=== PATIENT | female | born 1970 | race Caucasian/White ===

== ENCOUNTER 2020-02-01 11:00 | Outpatient (RCR) | payer OTHER, SELFPAY ==
[2020-01-27 09:34] VITALS: BP 137/93; PULSE 104; RESP 14
== END 2020-02-13 13:33 | disposition other institution (70) ==
LOC: HO.PT 11:00
PROVIDERS: PCP Internal Medicine; Visit Provider Internal Medicine
DX: M25.511 Pain in right shoulder (principal)
CPT/HCPCS: 97110; 97140; 97162

== ENCOUNTER → 2020-03-20 14:39 | Outpatient (BNVA) | payer OTHER, SELFPAY | PROVIDERS: PCP Hospitalist; Referring Provider Hospitalist; Visit Provider Nurse Practitioner | DX: K21.9 Gastro-esophageal reflux disease without esophagitis (principal); R14.0 Abdominal distension (gaseous); R11.2 Nausea with vomiting, unspecified; K59.00 Constipation, unspecified; R15.9 Full incontinence of feces; Z79.899 Other long term (current) drug therapy; Z87.891 Personal history of nicotine dependence | CPT/HCPCS: 99212 ==

== ENCOUNTER → 2020-04-24 13:07 | Outpatient (BNVA) | payer OTHER, SELFPAY | PROVIDERS: PCP Hospitalist; Visit Provider Nurse Practitioner | DX: Z76.89 Persons encountering health services in other specified circumstances (principal) ==

== ENCOUNTER 2020-07-17 13:44 | Outpatient (REF) | payer OTHER, SELFPAY ==
[2020-07-17 17:07] LABS: TSH reflex Free T4 1.98 uIU/mL (0.32-4.0)
[2020-07-18 08:32] LABS: HBS Num1 0.29 mIU/mL (0-7.99); ~Hepatitis B Surface Antibody NONREACTIVE (Nonreactive)
[2020-07-18 10:11] LABS: Mumps Virus IgG Antibody <9.00 AU/mL; Rubella IgG Antibody <0.90 Index
[2020-07-24 14:27] LABS: Tetanus Antitoxiod Antibody 5.12 IU/mL
== END 2020-07-17 13:45 | disposition home or self-care (01) ==
LOC: HO.HMGCLDS 13:44
PROVIDERS: PCP Internal Medicine; Visit Provider Internal Medicine
DX: E03.9 Hypothyroidism, unspecified (principal); Z28.3 Underimmunization status
CPT/HCPCS: 36415; 84443; 86706; 86735; 86762; 86765; 86774; 86787

== ENCOUNTER → 2020-07-20 13:42 | Outpatient (BNVA) | payer OTHER, SELFPAY | PROVIDERS: PCP Internal Medicine; Visit Provider Internal Medicine Pulmonary Disease | DX: J45.50 Severe persistent asthma, uncomplicated (principal); Z91.09 Other allergy status, other than to drugs and biological substances | CPT/HCPCS: 99212 ==

== ENCOUNTER 2020-08-15 09:20 | Outpatient (REF) | payer OTHER, SELFPAY ==
[2020-08-15 11:26] LABS: MANUAL DIFF FLAG NO
[2020-08-15 11:37] LABS: Basophils Absolute Auto 0.1 X10*3/uL (0.0-0.2); Basophils Percent Auto 0.7 % (0-2); Eosinophils Absolute Auto 0.3 X10*3/uL (0.0-0.4); Hematocrit 33.5 % (37-47); Hemoglobin 9.8 g/dl (12.0-16.0); Imm Gran Abs Auto 0.02 X10*3/uL (0.00-0.03); Imm Gran Pct Auto 0.2 % (0.0-0.4); Lymphocytes Absolute Auto 2.3 X10*3/uL (1.2-4.9); Lymphocytes Percent Auto 26.5 % (20-40); Mean Corpuscular HGB Conc 29.3 g/dl (31.0-35.0); Mean Corpuscular Hemoglobin 20.2 pg (27.0-33.0); Mean Corpuscular Volume 69.2 fL (80-98); Mean Platelet Volume 10.8 fL (9.4-12.3); Monocytes Absolute Auto 0.4 X10*3/uL (0.1-1.2); Neutrophils Absolute Auto 5.7 X10*3/uL (2.0-8.3); Neutrophils Percent Auto 64.6 % (45-73); Platelet Count 390 X10*3/uL (160-400); Red Blood Count 4.84 X10*6/uL (4.20-5.50); Red Cell Distribution Width 17.1 % (11.0-16.0); White Blood Count 8.8 X10*3/uL (4.8-10.8)
== END 2020-08-15 09:21 | disposition home or self-care (01) ==
LOC: HO.HMGCLDS 09:20
PROVIDERS: PCP Internal Medicine; Visit Provider Internal Medicine
DX: D64.9 Anemia, unspecified (principal)
CPT/HCPCS: 36415; 85025

== ENCOUNTER → 2020-08-21 13:01 | Outpatient (BNVA) | payer OTHER, SELFPAY | PROVIDERS: PCP Internal Medicine; Visit Provider Internal Medicine Pulmonary Disease | DX: J45.50 Severe persistent asthma, uncomplicated (principal); Z91.09 Other allergy status, other than to drugs and biological substances | CPT/HCPCS: 99212 ==

== ENCOUNTER 2020-08-27 06:07 | Outpatient (REF) | payer OTHER, SELFPAY ==
--- NOTE | ~2020-08-27 | XR_ITS ---
EXAMINATION: XR SHOULDER, RIGHT CLINICAL INFORMATION: Pain COMPARISON: Previous x-ray December 2019 TECHNIQUE: Three views of the right shoulder. FINDINGS: Bone alignment is normal. No fracture or dislocation is seen. There is mild arthritis at the acromioclavicular joint. The glenohumeral joint is normal. Soft tissues are normal XR/XR shoulder RT min 2V IMPRESSION: Mild arthritis at the acromioclavicular joint.
== END 2020-08-27 06:08 | disposition home or self-care (01) ==
LOC: HO.HOSX 06:07
PROVIDERS: Visit Provider Physician Assistant
DX: M25.511 Pain in right shoulder (principal); M75.41 Impingement syndrome of right shoulder
CPT/HCPCS: 20610; 73030; 99202; J1040

== ENCOUNTER 2020-09-12 11:50 | Outpatient (REF) | payer OTHER, SELFPAY | END 2020-09-12 11:51 | disposition home or self-care (01) | LOC: HO.MDS 11:50 | PROVIDERS: Visit Provider Internal Medicine Medical Oncology | DX: D50.9 Iron deficiency anemia, unspecified (principal) | CPT/HCPCS: 96365; J2916 ==

== ENCOUNTER 2020-09-18 10:15 | Outpatient (REF) | payer OTHER, SELFPAY | END 2020-09-18 10:16 | disposition home or self-care (01) | LOC: HO.MDS 10:15 | PROVIDERS: PCP Internal Medicine; Visit Provider Internal Medicine Medical Oncology | DX: D50.9 Iron deficiency anemia, unspecified (principal) | CPT/HCPCS: 96365; 96372; J2357; J2916 ==

== ENCOUNTER 2020-09-26 12:43 | Outpatient (REF) | payer OTHER, SELFPAY | END 2020-09-26 12:44 | disposition home or self-care (01) | LOC: HO.MDS 12:43 | PROVIDERS: PCP Internal Medicine; Visit Provider Internal Medicine Medical Oncology | DX: D50.9 Iron deficiency anemia, unspecified (principal) | CPT/HCPCS: 96365; J2916 ==

== ENCOUNTER 2020-10-05 10:00 | Outpatient (RCR) | payer OTHER, SELFPAY ==
[2020-09-11 10:19] VITALS: BP 123/76; PULSE 96; O2SAT 96
--- NOTE | 2020-09-11 11:05 | MHC.PT.EP ---
[facility] [place] Office [place] Office [place] Office [address] Martin Jennings [address] [phone] F: [phone] F: [phone] F: [phone] F: [phone] Physical Therapy Plan of Care Date of Evaluation: Date of Surgery: Diagnosis: Pain in unspecified shoulder, impingement syndrome R shoulder Assessment: 50 y/o RHD female referred to PT with R shoulder pain and impingement. She initially injured her shoulder while swimming one year ago. Recently had a cortisone injections which helped. CUrrently pain and difficulty with reaching overhead, grooming, bathing, dressing, and lifting. Of note, PMH significant for petite mal seizure disorder, TIA, anemia, and asthma. S/s consistent with impingement and ? adhesive capsulitis secondary to decreased A/PROM, capsular pattern, decreased RTC/scapular strength, pain, and impaired postural awareness. Recommend PT 2x/week for 5 weeks to address impairments, implement HEP, and optimize functional mobility. Frequency and Duration: The patient will be seen 2x/week for 5 weeks Short Term Goals: 3 weeks 1. I with HEP 2. 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 I with HEP and self management of sx 2. Pt will improve strength by one MMT grade to facilitate reaching into overhead shelf with pain < 3/10 3. Pt will be able to groom with pain < 3/10 Treatment Plan: Modalities to reduce pain, spasms and effusion. Manual therapy to restore motion and function. Therapeutic exercise to improve strength and flexibility. Neuromuscular re-education for posture and balance. Therapeutic activities to return to functional activities of daily living. Electronically signed by: Ann Osman PT Please sign and return to therapist. Thank you for your referral.
--- NOTE | 2020-11-29 10:42 | MHC.PT.DC ---
[facility] [place] Office [place] Office [place] Office [address] Martin Jennings 140 [facility] [phone] F: [phone] F: [phone] F: [phone] F: [phone] Physical Therapy Discharge Report Diagnosis: Pain in unspecified shoulder, impingement syndrome R shoulder Date of Surgery: Date of Evaluation: 09/11/20 Date of Discharge: 11/29/20 Treatments to Date: 6 Cancellations to Date: 2 No Shows to Date: 4 Discharge Status: Visit Non-compliance Discharge Summary: Pt d/c today secondary to non compliance to scheduling policy and no further f/u with appointments. Electronically signed by: Ann Osman PT Please sign and return to therapist. Thank you for your referral.
== END 2020-11-29 10:44 | disposition home or self-care (01) ==
LOC: HO.PT 10:00
PROVIDERS: PCP Internal Medicine; Visit Provider Physician Assistant
DX: M25.519 Pain in unspecified shoulder (principal); M75.41 Impingement syndrome of right shoulder
CPT/HCPCS: 97110; 97162

== ENCOUNTER 2020-10-05 10:47 | Outpatient (REF) | payer OTHER, SELFPAY ==
[2020-10-05 11:12] LABS: MANUAL DIFF FLAG NO
[2020-10-05 11:16] LABS: Basophils Absolute Auto 0.1 X10*3/uL (0.0-0.2); Basophils Percent Auto 0.9 % (0-2); Eosinophils Absolute Auto 0.4 X10*3/uL (0.0-0.4); Eosinophils Percent Auto 4.5 % (0-4); Hematocrit 36.5 % (37-47); Hemoglobin 11.2 g/dl (12.0-16.0); Imm Gran Abs Auto 0.02 X10*3/uL (0.00-0.03); Imm Gran Pct Auto 0.2 % (0.0-0.4); Lymphocytes Absolute Auto 2.1 X10*3/uL (1.2-4.9); Lymphocytes Percent Auto 23.4 % (20-40); Mean Corpuscular HGB Conc 30.7 g/dl (31.0-35.0); Mean Corpuscular Hemoglobin 22.1 pg (27.0-33.0); Mean Corpuscular Volume 72.1 fL (80-98); Monocytes Absolute Auto 0.6 X10*3/uL (0.1-1.2); Monocytes Percent Auto 6.2 % (2-11); Neutrophils Absolute Auto 5.8 X10*3/uL (2.0-8.3); Neutrophils Percent Auto 64.8 % (45-73); Platelet Count 298 X10*3/uL (160-400); Red Blood Count 5.06 X10*6/uL (4.20-5.50); Red Cell Distribution Width 22.1 % (11.0-16.0)
== END 2020-10-05 10:48 | disposition home or self-care (01) ==
LOC: HO.MDS 10:47
PROVIDERS: PCP Internal Medicine; Visit Provider Internal Medicine Medical Oncology
DX: D50.9 Iron deficiency anemia, unspecified (principal)
CPT/HCPCS: 36415; 85025; 96365; J2916

== ENCOUNTER → 2020-10-11 15:50 | Outpatient (BNVA) | payer OTHER, SELFPAY | PROVIDERS: PCP Internal Medicine; Visit Provider Nurse Practitioner ==

== ENCOUNTER 2020-10-12 09:29 | Outpatient (REF) | payer OTHER, SELFPAY | END 2020-10-12 09:30 | disposition home or self-care (01) | LOC: HO.MDS 09:29 | PROVIDERS: PCP Internal Medicine; Visit Provider Internal Medicine Medical Oncology | DX: D50.9 Iron deficiency anemia, unspecified (principal) | CPT/HCPCS: J2916 ==

== ENCOUNTER 2020-10-19 09:19 | Outpatient (REF) | payer OTHER, SELFPAY ==
[2020-10-19 10:52] LABS: MANUAL DIFF FLAG NO
[2020-10-19 10:55] LABS: Basophils Absolute Auto 0.1 X10*3/uL (0.0-0.2); Basophils Percent Auto 0.8 % (0-2); Eosinophils Absolute Auto 0.4 X10*3/uL (0.0-0.4); Hematocrit 38.5 % (37-47); Hemoglobin 12.1 g/dl (12.0-16.0); Imm Gran Abs Auto 0.03 X10*3/uL (0.00-0.03); Imm Gran Pct Auto 0.3 % (0.0-0.4); Lymphocytes Absolute Auto 2.4 X10*3/uL (1.2-4.9); Lymphocytes Percent Auto 26.5 % (20-40); Mean Corpuscular HGB Conc 31.4 g/dl (31.0-35.0); Mean Corpuscular Hemoglobin 23.4 pg (27.0-33.0); Mean Corpuscular Volume 74.3 fL (80-98); Mean Platelet Volume 10.1 fL (9.4-12.3); Monocytes Absolute Auto 0.5 X10*3/uL (0.1-1.2); Monocytes Percent Auto 5.5 % (2-11); Neutrophils Absolute Auto 5.6 X10*3/uL (2.0-8.3); Neutrophils Percent Auto 62.9 % (45-73); Platelet Count 278 X10*3/uL (160-400); Red Blood Count 5.18 X10*6/uL (4.20-5.50); Red Cell Distribution Width 23.2 % (11.0-16.0); White Blood Count 8.9 X10*3/uL (4.8-10.8)
== END 2020-10-19 09:20 | disposition home or self-care (01) ==
LOC: HO.MDS 09:19
PROVIDERS: PCP Internal Medicine; Visit Provider Internal Medicine Medical Oncology
DX: J45.50 Severe persistent asthma, uncomplicated (principal)
CPT/HCPCS: 36415; 85025; 96365; 96372; J2357; J2916

== ENCOUNTER → 2020-10-24 13:05 | Outpatient (BNVA) | payer OTHER, SELFPAY | PROVIDERS: PCP Internal Medicine; Visit Provider Internal Medicine Pulmonary Disease ==

== ENCOUNTER 2020-11-14 08:20 | Day surgery (SDC) | payer OTHER, SELFPAY ==
[2020-11-08 10:51] VITALS: BMI 38.2
--- NOTE | 2020-11-13 11:39 | P.CONAN_ITS ---
Documented by User: Serena Miller 11/13/20 11:40 HPI - Anesthesia Eval Consult details Narrative: 50yo F for Upper Endoscopy and Colonoscopy *Multiple Med Allergies* PMFSH Active Problems Active Problems: All Active Problems (Updated 11/08/20 @ 10:47 by Nisha Romero) GERD (gastroesophageal reflux disease) (Acute) Abdominal bloating (Acute) Nausea and vomiting (Acute) Constipation (Acute) Postmenopausal bleeding (Acute) Stool incontinence (Acute) Hypothyroidism (Acute) Immunizations incomplete (Acute) Severe persistent allergic asthma (Acute) Environmental allergies (Acute) Shoulder pain, right (Acute) Sciatica, left side (Acute) Anemia (Acute) Shoulder pain (Acute) Impingement syndrome of right shoulder (Acute) Iron deficiency anemia (Acute) Colon cancer screening (Acute) Past Medical History Medical History (Updated 11/08/20 @ 10:47 by Nisha Romero) Anemia Aneurysm Asthma GERD (gastroesophageal reflux disease) Thyroid disease Family History Family History (Updated 09/04/20 @ 14:16 by Shanon Ghosh) Father Diabetes Arthritis Diverticulitis Leukemia Lung cancer Mother Arthritis Colon polyps Anemia Brother Crohn's disease Testicular cancer Brother Cancer Paternal Grandfather Leukemia Surgical History Surgical History (Updated 09/04/20 @ 15:23 by Jeronimo Bernal MD) H/O brain surgery History of colonoscopy Social History Social History (Updated 09/04/20 @ 14:14 by Shanon Ghosh) Alcohol intake: current Alcohol intake frequency: holidays/special occasions only Alcohol type: wine Patient Tobacco Use Status: Former Tobacco user Use of substances other than those prescribed or required for medical reasons: No Advance Directives: No Advance Directives Information Provided: Yes Advance Directives Date on File: 01/27/20 Recently lost weight without trying: No Patient : No 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al status: disabled 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: Right Handed Meds Allergies Allergy/AdvReac Type Severity Reaction Status Date / Time NSAIDS (Non-Steroidal Allergy Severe THROAT Verified 11/08/20 10:42 Anti-Inflamma SWELLING [NSAIDS (NON-STEROIDAL ANTI-INFLAMMA] niacin Allergy Intermediate skin Verified 11/08/20 10:42 [Niaspan Extended-Release] blisters tramadol Allergy Intermediate seizures Verified 11/08/20 10:42 barley [BARLEY] Allergy Unknown UNKNOWN Verified 10/24/20 13:06 fluticasone [Advair Diskus] Allergy Unknown unknown Verified 10/24/20 13:06 ibuprofen Allergy Unknown Unknown Verified 10/24/20 13:06 naratriptan Allergy Unknown unknown Verified 10/24/20 13:06 Penicillins [PENICILLINS] Allergy Unknown UNKNWON Verified 10/24/20 13:06 sumatriptan Allergy Unknown unknown Verified 10/24/20 13:06 trazodone [TRAZODONE] Allergy Unknown UNKNOWN Verified 10/24/20 13:06 Home Medications Medication Instructions Recorded Confirmed Last Taken Type simethicone 180 mg capsule 180 mg PO BID PRN 03/20/20 11/08/20 Unknown History fluticasone propionate 50 1 spray INTRANASAL DAILY 07/17/20 11/08/20 Unknown History mcg/actuation nasal spray,suspension montelukast 10 mg tablet 10 mg PO DAILY 07/17/20 11/08/20 Unknown History Exam Exam Date and Time: November 13, 2020 1139 Height,Weight and Vital Signs: Height 5 ft 5 in Weight 104.326 kg Pertinent Lab Results Pertinent Lab Results: Laboratory Tests 09/04/20 10/19/20 14:56 10:47 WBC 8.9 Hgb 12.1 Hct 38.5 Plt Count 278 Sodium 139 Potassium 4.1 Chloride 107 Carbon Dioxide 23 BUN 11 Creatinine 0.69 Assessment and Plan Assessment Anesthesia Assessment: Chart Reviewed Documented by User: Erin Dubon 11/14/20 09:09 [facility] [place] [place] Past Medical History Medical History (Updated 11/08/20 @ 10:47 by Nisha Romero) Anemia Aneurysm Asthma GERD (gastroesophageal reflux disease) Thyroid disease Family History Family History (Updated 09/04/20 @ 14:16 by Shanon Ghosh) Father Diabetes Arthritis Diverticulitis Leukemia Lung cancer Mother Arthritis Colon polyps Anemia Brother Crohn's disease Testicular cancer Brother Cancer Paternal Grandfather Leukemia Surgical History Surgical History (Updated 09/04/20 @ 15:23 by Jeronimo Bernal MD) H/O brain surgery History of colonoscopy Social History Social History (Updated 09/04/20 @ 14:14 by Shanon Ghosh) Alcohol intake: current Alcohol intake frequency: holidays/special occasions only Alcohol type: wine Patient Tobacco Use Status: Former Tobacco user Use of substances other than those prescribed or required for medical reasons: No Advance Directives: No Advance Directives Information Provided: Yes Advance Directives Date on File: 01/27/20 Recently lost weight without trying: No Patient : No 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al status: disabled 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: Right Handed Meds Allergies Allergy/AdvReac Type Severity Reaction Status Date / Time NSAIDS (Non-Steroidal Allergy Severe THROAT Verified 11/08/20 10:42 Anti-Inflamma SWELLING [NSAIDS (NON-STEROIDAL ANTI-INFLAMMA] niacin Allergy Intermediate skin Verified 11/08/20 10:42 [Niaspan Extended-Release] blisters tramadol Allergy Intermediate seizures Verified 11/08/20 10:42 barley [BARLEY] Allergy Unknown UNKNOWN Verified 10/24/20 13:06 fluticasone [Advair Diskus] Allergy Unknown unknown Verified 10/24/20 13:06 ibuprofen Allergy Unknown Unknown Verified 10/24/20 13:06 naratriptan Allergy Unknown unknown Verified 10/24/20 13:06 Penicillins [PENICILLINS] Allergy Unknown UNKNWON Verified 10/24/20 13:06 sumatriptan Allergy Unknown unknown Verified 10/24/20 13:06 trazodone [TRAZODONE] Allergy Unknown UNKNOWN Verified 10/24/20 13:06 Home Medications Medication Instructions Recorded Confirmed Last Taken Type simethicone 180 mg capsule 180 mg PO BID PRN 03/20/20 11/08/20 Unknown History fluticasone propionate 50 1 spray INTRANASAL DAILY 07/17/20 11/08/20 Unknown History mcg/actuation nasal spray,suspension montelukast 10 mg tablet 10 mg PO DAILY 07/17/20 11/08/20 Unknown History Exam Airway Mallampati Class: II TM Dist: >3cm Neck ROM: Full Denture: Upper and Lower Heart: rrr Lungs: cta Assessment and Plan Assessment Anesthesia Assessment: Anesthesia Plan Discussed and Chart Reviewed Final Anesthetic Review NPO: Yes ASA Class: III Final Preanesthetic Review: No Changes in Pt Med Stat and Consent Obtained/Reviewed Patient Risk: Intermediate Procedure Risk: Intermediate Anesthetic Plan Anesthetic Plan: MAC: Disposition: Standard PACU
[2020-11-14 08:45] VITALS: BP 126/85; PULSE 73; RESP 17; TEMP 36.2; O2SAT 96; BMI 38.2
[2020-11-14 09:00] LABS: UPreg QC Valid YES; Urine Pregnancy NEGATIVE (NEGATIVE)
[2020-11-14] MEDS: Lactated Ringers 1,000 ML 100 ML IVCONT (09:02)
--- NOTE | 2020-11-14 09:07 | MHC.SHP ---
Pre-Procedural Eval Section A Date of Service: 11/14/20 Section B Chief Complaint: Screening, GERD Details of Present Illness: iron def anemia Present Medications: see Short Stay Collaborative assessment Medical History: Significant History (Anemia Aneurysm Asthma GERD (gastroesophageal reflux disease) Thyroid disease) History of Previous Operations: Relevant previous surgery/procedure and date(s) (H/O brain surgery History of colonoscopy) Allergies: Allergies Allergy/AdvReac Type Severity Reaction Status Date / Time NSAIDS (Non-Steroidal Allergy Severe THROAT Verified 11/08/20 10:42 Anti-Inflamma SWELLING [NSAIDS (NON-STEROIDAL ANTI-INFLAMMA] niacin Allergy Intermediate skin Verified 11/08/20 10:42 [Niaspan Extended-Release] blisters tramadol Allergy Intermediate seizures Verified 11/08/20 10:42 barley [BARLEY] Allergy Unknown UNKNOWN Verified 10/24/20 13:06 fluticasone [Advair Diskus] Allergy Unknown unknown Verified 10/24/20 13:06 ibuprofen Allergy Unknown Unknown Verified 10/24/20 13:06 naratriptan Allergy Unknown unknown Verified 10/24/20 13:06 Penicillins [PENICILLINS] Allergy Unknown UNKNWON Verified 10/24/20 13:06 sumatriptan Allergy Unknown unknown Verified 10/24/20 13:06 trazodone [TRAZODONE] Allergy Unknown UNKNOWN Verified 10/24/20 13:06 Review of Systems Sugical H&P ROS: Negative: Constitution, Cardiovascular, Respiratory, Neurological, Psychiatric, Hem-Onc, Allergic/Immunologic, Gastrointestinal, Genitourinary, Musculoskeletal, Integumentary, Endocrine and Eyes/Ears/Nose/Throat Exam Surgical H&P Exam: Normal: HEENT, Normal: Heart, Normal: Lungs, Normal: Extremities, Normal: Abdomen, Normal: Skin and Normal: Neurological Plan Diagnosis/Plan: Unchanged I have reviewed the history and physical and performed a pertinent physical examination on my patient. No changes have occurred unless specified.
--- NOTE | 2020-11-14 09:23 | P.BOP_ITS ---
Brief Operative Note Date of Service: 11/14/20 Pre-op diagnosis: anemia, GERd, Post-op diagnosis: same Procedure: see op note Surgeon: Diamante Bass MD Anesthesia: MAC Was an [employer] Production Technician used for this Procedure?: No Estimated blood loss (mL): 0 Condition: stable Disposition: PACU
--- NOTE | 2020-11-14 09:24 | P.OP_ITS ---
Operative Note Operative Note Date of Service: 11/14/20 Narrative: Operative Information Procedure Description: EGD, Colonoscopy FLEXIBLE TRANSORAL UPPER GASTROINTESTINAL ENDOSCOPY AND COLONOSCOPY PROCEDURE NOTE UPPER ENDOSCOPY Consent: Indications for the procedure and potential complications of bleeding, perforation, reaction to medications and missed diagnosis were discussed with the patient and informed consent was obtained. Instrument: Olympus GIF H 190 J mid size upper endoscope Monitoring: Vital signs and clinical assessment, continuous EKG monitoring, Pulse oximetry, Carbon Dioxide monitoring and blood pressure monitoring were done throughout the procedure. Procedure: The patient was placed in the left lateral decubitis position and pre-procedure medications were administered and a bite block was placed. The endoscope was inserted into the mouth and advanced under direct vision to the third part of duodenum. A careful inspection was made as the upper endoscope was withdrawn including a retroflexed examination of the proximal stomach; Findings and interventions are described below. Findings: Larynx:normal Esophagus: GE junction at 40 cm, diaphragm hiatus at 40 cm, normal mucosa --GEJ bx and random esophagus bx taken Stomach: Patchy erythema and atrophy. Biopsies were obtained. Grade 2 flap valve on retroflexed examination of the cardia. Duodenum: Normal bulb and descending duodenum, bx taken Intervention: Biopsies as noted above COLONOSCOPY Instrument: Olympus variable stiffness pediatric scope 190L Colonoscopy Monitoring: Vital signs and clinical assessment, continuous EKG monitoring, Pulse oximetry, Carbon Dioxide monitoring and blood pressure monitoring were done throughout the procedure. Colon withdrawal time was 15 minutes. Procedure: The patient was placed in the left lateral decubitis position and pre-procedure medications were administered. After a digital rectal examination of the ano-rectum, the video colonoscope was inserted into the rectum and advanced through the colon to the cecum/TI. The colonoscope was slowly withdrawn in a retrograde panoramic fashion and the colon mucosa was carefully examined including a retroflexed view of the rectum. Findings and interventions are described below. Procedure Difficulty:moderate, pressure applied to reach cecum Findings: Terminal Ileum-normal, bx taken bx taken from right and left colon in separate jars Cecum: slightly nodular mucosa, small sessile polyp 4-5 mm removed with forceps Ascending Colon: nodular mucosa Transverse Colon -normal Descending Colon:normal Sigmoid Colon: mild to moderate diverticulosis Rectum: Retroflexion with large internal hemorrhoids, grade I, with skin tags noted Anorectum - skin tags noted Colon preparation: [place] Bowel Preparation Scale Right colon; 1 Transverse colon: 1 Left colon; 3 (0 = Unprepared colon segment with mucosa not seen due to solid stool that cannot be cleared. 1 = Portion of mucosa of the colon segment seen, but other areas of the colon segment not well seen due to staining, residual stool and/or opaque liquid. 2 = Minor amount of residual staining, small fragments of stool and/or opaque liquid, but mucosa of colon segment seen well. 3 = Entire mucosa of colon segment seen well with no residual staining, small fragments of stool or opaque liquid) Impression and Post Procedure Diagnosis: Endoscopy Findings: gastritis Colonoscopy Findings: polyp internal hemorrhoids diverticular disease Plan: Await Pathology results Repeat Colonoscopy in 1-2 years due to prep or earlier if clinically indicated High fiber diet leaflet avoid straining at stool, epsom salts and sitz bath, anusol supps or cream suspect her anemia is due to hemorrhoids, if bx neg then refer Dr Gilman for hemorrhoidectomy Above findings were reviewed with the patient and relevant handouts were provided if indicated.
[2020-11-14 10:00] VITALS: BP 119/74; PULSE 74; RESP 16; TEMP 36.1; O2SAT 98
[2020-11-14 10:15] VITALS: BP 136/87; PULSE 78; RESP 18; O2SAT 99
[2020-11-14 10:22] VITALS: TEMP 36.6
== END 2020-11-14 10:49 | disposition home or self-care (01) ==
PROVIDERS: Nurse Practitioner; PCP Internal Medicine; Visit Provider Internal Medicine Gastroenterology
PROC: (CPT 45380; principal; 2020-11-14 11:00)
DX: Z12.11 Encounter for screening for malignant neoplasm of colon (principal); D12.0 Benign neoplasm of cecum; K63.89 Other specified diseases of intestine; K57.30 Diverticulosis of large intestine without perforation or abscess without bleeding; K64.0 First degree hemorrhoids; K64.4 Residual hemorrhoidal skin tags; K21.9 Gastro-esophageal reflux disease without esophagitis; K29.50 Unspecified chronic gastritis without bleeding; K44.9 Diaphragmatic hernia without obstruction or gangrene; J45.909 Unspecified asthma, uncomplicated; D64.9 Anemia, unspecified; Z86.79 Personal history of other diseases of the circulatory system; Z79.51 Long term (current) use of inhaled steroids; Z79.899 Other long term (current) drug therapy; Z88.0 Allergy status to penicillin; Z88.8 Allergy status to other drugs, medicaments and biological substances; Z87.891 Personal history of nicotine dependence
CPT/HCPCS: 45380; 43239; 81025; 88305; 88342

== ENCOUNTER 2020-11-16 09:15 | Outpatient (REF) | payer OTHER, SELFPAY | END 2020-11-16 09:16 | disposition home or self-care (01) | LOC: HO.MDS 09:15 | PROVIDERS: PCP Internal Medicine; Visit Provider Internal Medicine Medical Oncology | DX: J45.50 Severe persistent asthma, uncomplicated (principal) | CPT/HCPCS: 96372; J2357 ==

== ENCOUNTER → 2020-12-10 10:21 | Outpatient (BNVA) | payer OTHER, SELFPAY | PROVIDERS: PCP Internal Medicine; Visit Provider Nurse Practitioner ==

== ENCOUNTER 2020-12-14 08:29 | Outpatient (REF) | payer OTHER, SELFPAY | END 2020-12-14 08:30 | disposition home or self-care (01) | LOC: HO.MDS 08:29 | PROVIDERS: PCP Internal Medicine; Visit Provider Internal Medicine Medical Oncology | DX: J45.50 Severe persistent asthma, uncomplicated (principal) | CPT/HCPCS: 96372; J2357 ==

== ENCOUNTER 2021-01-11 08:25 | Outpatient (REF) | payer OTHER, SELFPAY | END 2021-01-11 08:26 | disposition home or self-care (01) | LOC: HO.MDS 08:25 | PROVIDERS: PCP Internal Medicine; Visit Provider Internal Medicine Medical Oncology | DX: J45.50 Severe persistent asthma, uncomplicated (principal) | CPT/HCPCS: 96372; J2357 ==

== ENCOUNTER → 2021-01-22 09:47 | Outpatient (BNVA) | payer OTHER, SELFPAY | PROVIDERS: PCP Internal Medicine; Visit Provider Nurse Practitioner ==

== ENCOUNTER 2021-02-08 08:12 | Outpatient (REF) | payer OTHER, SELFPAY | END 2021-02-08 08:13 | disposition home or self-care (01) | LOC: HO.MDS 08:12 | PROVIDERS: PCP Internal Medicine; Visit Provider Internal Medicine Pulmonary Disease | DX: J45.50 Severe persistent asthma, uncomplicated (principal) | CPT/HCPCS: 96372; J2357 ==

== ENCOUNTER 2021-03-08 09:14 | Outpatient (REF) | payer OTHER, SELFPAY | END 2021-03-08 09:15 | disposition home or self-care (01) | LOC: HO.MDS 09:14 | PROVIDERS: PCP Internal Medicine; Visit Provider Internal Medicine Pulmonary Disease | DX: J45.50 Severe persistent asthma, uncomplicated (principal) | CPT/HCPCS: 96372; 99212; J2357 ==

== ENCOUNTER 2021-03-12 15:23 | Emergency (ER) | payer OTHER, SELFPAY ==
--- NOTE | ~2021-03-12 | CT_ITS ---
EXAMINATION: CT HEAD WITHOUT CONTRAST CLINICAL INFORMATION: Dizziness. COMPARISON: CT head 11/25/2017, 10/05/2017 TECHNIQUE: Contiguous axial imaging was performed from the skull base to vertex without intravenous administration of contrast. Coronal and sagittal reformatted images are performed at CT scanner This CT examination was performed using dose optimization techniques as appropriate, variously including the following: *Automated exposure control *Adjustment of mA and/or kV according to patient size (this includes techniques or standardized protocols for targeted exams where dose is matched to indication/reason for exam; i.e. extremities or head) *Use of iterative reconstruction technique DLP: 625 mGy-cm FINDINGS:. Coil mass in the region of the left internal carotid artery terminus at the skull base causes streak artifact There is no evidence of acute intracranial hemorrhage or territorial infarction. No abnormal mass effect or midline shift is seen. Clark to white matter differentiation is well preserved. No extra-axial fluid collections are identified. The ventricles are normal in size. There is no abnormal attenuation within the brain parenchyma. The osseous structures and soft tissues are normal. The mastoid air cells and visualized portions of the paranasal sinuses are well aerated. CT/CT head/brain wo con IMPRESSION: No acute intracranial pathology.
--- NOTE | 2021-03-12 15:36 | ECG_ITS ---
Test Reason : SOB Blood Pressure : / mmHG Vent. Rate : 078 BPM Atrial Rate : 078 BPM P-R Int : 174 ms QRS Dur : 084 ms QT Int : 358 ms P-R-T Axes : 049 007 027 degrees QTc Int : 408 ms Normal sinus rhythm Nonspecific ST abnormality Abnormal ECG When compared with ECG of 25-NOV-2017 12:22, No significant change was found Referred By: Derrick Marte Electronically Signed By:JOANN BOWER MD
--- NOTE | 2021-03-12 15:38 | ED.GENADULT ---
HPI - General Adult General Chief complaint: Dizziness Stated complaint: LIGHTHEADED,DIZZY Time Seen by Provider: 03/12/21 15:29 Source: patient Mode of arrival: EMS Limitations: no limitations History of Present Illness HPI narrative: This is a very pleasant 51 years old the female presented to the emergency department via ambulance having the chief complaint of dizziness since this morning, tingling in the fingers in left side left shoulder pain. Symptoms started around 07:00. Denies any chest pain, shortness of breath, fever. She has history of migraines complicated with the hemiplegia and that she has a history of a brain aneurysm coiled at the [facility] Onset (ago): hour(s) (7) Location: head Radiation: other (left shoulder) Severity: mild Quality: aching Relieving factors: none Exacerbating factors: none Associated symptoms: denies other symptoms Related Data Previous Rx's Medication Instructions Recorded diphenhydramine HCl 25 mg capsule 25 mg PO TID PRN 30 Days #90 cap 09/25/20 (Banophen) fluticasone propionate 50 1 spray INTRANASAL DAILY 30 Days 11/27/20 mcg/actuation nasal #16 g spray,suspension (Flonase Allergy Relief) linaclotide 72 mcg capsule 72 mcg PO QAM 30 Days #30 cap 12/10/20 (Linzess) simethicone 180 mg capsule (Gas 180 mg PO QIDACHS 30 Days #120 cap 12/10/20 Relief (simethicone)) montelukast 10 mg tablet 10 mg PO DAILY #30 tab 12/19/20 loratadine 10 mg tablet 10 mg PO DAILY #30 tab 01/07/21 famotidine 40 mg tablet (Pepcid) 40 mg PO BEDTIME 30 Days #30 tab 01/22/21 levothyroxine 150 mcg tablet 150 mcg PO DAILY 90 Days #90 tab 02/19/21 ProAir HFA 90 mcg/actuation 2 puff INHALATION Q4H #8.5 g NS 02/21/21 aerosol inhaler (albuterol sulfate) xcadnazltt-dbycrnylngqyk-igfvzmjk 1 cap PO Q8H PRN #10 cap 03/12/21 50 mg-300 mg-40 mg capsule (Fioricet) dexlansoprazole 60 mg 60 mg PO BEDTIME 30 Days #30 cap 03/12/21 capsule,biphase delayed release (Dexilant) Allergies Allergy/AdvReac Type Severity Reaction Status Date / Time NSAIDS (Non-Steroidal Allergy Severe THROAT Verified 03/08/21 09:49 Anti-Inflamma SWELLING [NSAIDS (NON-STEROIDAL ANTI-INFLAMMA] niacin Allergy Intermediate skin Verified 03/08/21 09:49 [Niaspan Extended-Release] blisters tramadol Allergy Intermediate seizures Verified 03/08/21 09:49 barley [BARLEY] Allergy Unknown UNKNOWN Verified 03/08/21 09:49 fluticasone [Advair Diskus] Allergy Unknown unknown Verified 03/08/21 09:49 ibuprofen Allergy Unknown Unknown Verified 03/08/21 09:49 naratriptan Allergy Unknown unknown Verified 03/08/21 09:49 Penicillins [PENICILLINS] Allergy Unknown UNKNWON Verified 03/08/21 09:49 sumatriptan Allergy Unknown unknown Verified 03/08/21 09:49 trazodone [TRAZODONE] Allergy Unknown UNKNOWN Verified 03/08/21 09:49 Review of Systems Review of Systems: Yes all other systems are reviewed and are negative ENT: Reports dizziness and Denies odynophagia Cardiovascular: Cardiovascular: Denies chest pain, Denies chest pain at rest and Denies chest pain with activity Respiratory: Respiratory: Reports no additional respiratory complaints Gastrointestinal: Gastrointestinal: Denies odynophagia, Denies vomiting and Denies hematemesis Neurologic: Reports dizziness PMFSH Past Medical History Medical History Anemia Aneurysm Asthma GERD (gastroesophageal reflux disease) Thyroid disease Surgical History H/O brain surgery History of colonoscopy Family History Family History Father Diabetes Arthritis Diverticulitis Leukemia Lung cancer Mother Arthritis Colon polyps Anemia Brother Crohn's disease Testicular cancer Brother Cancer Paternal Grandfather Leukemia Social History Social History Household Members: Significant Other Alcohol intake: current Alcohol intake frequency: holidays/special occasions only Alcohol type: wine Patient Tobacco Use Status: Former Tobacco user Advance Directives: No Advance Directives Information Provided: No Advance Directives Date on File: 10/02/20 Patient : No 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al status: disabled 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 Physical Exam Vital Signs: Vital Signs: Last Vital Signs Temp 98 F 03/12/21 16:47 Pulse 86 03/12/21 16:47 Resp 16 03/12/21 16:47 BP 133/77 03/12/21 16:47 Pulse Ox 98 03/12/21 16:47 Body Mass Index 40.4 Const: General: cooperative, comfortable, no acute distress, well developed, alert and awake Nutritional Appearance: well nourished Orientation/consciousness: oriented to person, oriented to place, oriented to time and patient oriented x3 HENMT: Head: Yes normal to inspection Ears: TM's normal bilaterally Mouth: Normal oral and palatal mucosa present Throat: Yes posterior oropharynx normal Neck: Neck: Yes normal visual inspection, Yes no lymphadenopathy, Yes no meningeal signs and Yes trachea midline Chest: Chest palpation & inspection: normal inspection of the chest Resp: Effort & Inspection: normal respiratory effort Auscultation: clear to auscultation bilaterally Cardio: Jugular venous distension: no JVD Rate: regular rate Rhythm: regular rhythm GI: Inspection: Yes normal to inspection Palpation (GI): Soft to palpation, not firm, nontender, no guarding and not rigid Skin: General skin exam: no rashes or lesions noted, elasticity normal and turgor normal Neuro: General: oriented to person, oriented to place, oriented to time, patient oriented x3, gait normal and no meningeal signs Cranial nerves: Yes CN's II-XII intact bilaterally, Yes Facial sensation intact/muscles of mastication intact and Yes Bilaterally intact EOM present Gait exam (Neuro): Normal gait present and Other gait observations present (ambulated to the bathroom in the ED) Motor exam (neuro): Pronator motor function not present Coordination: [id number]-mz-[id number] test normal Course Reevaluation(s) Reevaluation #1: feeling much better asyntomatic at this time,head ct and labs wnl OK to d/c home Medical Decision Making Lab Data Result diagrams: 03/12/21 16:02 03/12/21 16:43 Labs: Lab Results 03/12/21 03/12/21 03/12/21 Range/Units 16:02 16:02 16:43 WBC 10.5 (4.8-10.8) X10*3/uL RBC 5.02 (4.20-5.50) X10*6/uL Hgb 13.6 (12.0-16.0) g/dl Hct 41.4 (37.0-47.0) % MCV 82.5 (80.0-98.0) fL MCH 27.1 (27.0-33.0) pg MCHC 32.9 (31.0-35.0) g/dl RDW 14.0 (11.0-16.0) % Plt Count 317 (160-400) X10*3/uL MPV 10.3 (9.4-12.3) fL Immature Gran % (Auto) 0.3 (0.0-0.4) % Neut % (Auto) 68.7 (45-73) % Lymph % (Auto) 21.1 (20-40) % [place] % (Auto) 6.3 (2-11) % Eos % (Auto) 2.9 (0-4) % Baso % (Auto) 0.7 (0-2) % Lymph # (Auto) 2.2 (1.2-4.9) X10*3/uL [place] # (Auto) 0.7 (0.1-1.2) X10*3/uL Eos # (Auto) 0.3 (0.0-0.4) X10*3/uL Baso # (Auto) 0.1 (0.0-0.2) X10*3/uL Abs Immat Gran (auto) 0.03 (0.00-0.03) X10*3/uL Absolute Neuts (auto) 7.2 (2.0-8.3) x10*3/uL Absolute Nucleated RBC 0.000 (0.0-0.012) X10*3/uL Nucleated RBC % (auto) 0.0 (0.0-0.2) /100WBC Sodium 140 (135-145) mmol/L Potassium 4.1 (3.3-5.1) mmol/L Chloride 108 (96-108) mmol/L Carbon Dioxide 24 (22-29) mmol/L Anion Gap 12 (12-20) BUN 9 (9-16) mg/dL Creatinine 0.73 (0.5-1.4) mg/dL Estim Creat Clear Calc 113.9 Estimated GFR > 60 Random Glucose 94 (60-115) mg/dL Calcium 9.5 (8.4-10.2) mg/dL Total Bilirubin 0.2 (0.0-1.0) mg/dL AST 17 (5-31) U/L ALT 19 (0-31) U/L Alkaline Phosphatase 153 H (39-117) U/L Troponin I High Sens < 3.5 (<3.5-17.0) ng/L Total Protein 6.6 (6.5-8.0) g/dL Albumin 4.2 (3.5-5.0) g/dL Imaging Data CT scan - head: Radiologist's impression: ing: *Automated exposure control *Adjustment of mA and/or kV according to patient size (this includes techniques or standardized protocols for targeted exams where dose is matched to indication/reason for exam; i.e. extremities or head) *Use of iterative reconstruction technique DLP: 625 mGy-cm FINDINGS:. Coil mass in the region of the left internal carotid artery terminus at the skull base causes streak artifact There is no evidence of acute intracranial hemorrhage or territorial infarction. No abnormal mass effect or midline shift is seen. Clark to white matter differentiation is well preserved. No extra-axial fluid collections are identified. The ventricles are normal in size. There is no abnormal attenuation within the brain parenchyma. The osseous structures and soft tissues are normal. The mastoid air cells and visualized portions of the paranasal sinuses are well aerated. ? CT/CT head/brain wo con IMPRESSION: No acute intracranial pathology. Dictated By: RAFAEL NORTH MD Signed By: <Electronically signed by RAFAEL NORTH MD in OV> 03/12/21 3331 ECG Data Attestation: I personally reviewed and interpreted this ECG as follows: Prior ECG tracings: available for review Pacemaker model: NSR 78 no ischemic changes Discharge Plan Discharge Clinical Impression: Dizziness, Head ache Patient Disposition: Home, Self-Care Instructions: Dizziness (ED), General Headache (ED) Additional Instructions: follow up with Primary Care physician ,return if worse Prescriptions: New luqykadxxp-satjxqufssvvb-ucqp [Fioricet] 50-300-40 mg capsule 1 cap PO Q8H PRN (Reason: headache) Qty: 10 RF: 0 No Action diphenhydramine HCl [Banophen] 25 mg capsule 25 mg PO TID PRN (Reason: itching) 30 Days Qty: 90 RF: 1 fluticasone propionate [Flonase Allergy Relief] 50 mcg/actuation spray,suspension 1 spray intranasal DAILY 30 Days Qty: 16 RF: 5 montelukast 10 mg tablet 10 mg PO DAILY Qty: 30 RF: 3 loratadine 10 mg tablet 10 mg PO DAILY Qty: 30 RF: 3 levothyroxine 150 mcg tablet 150 mcg PO DAILY 90 Days Qty: 90 RF: 0 albuterol sulfate [ProAir HFA] 90 mcg/actuation HFA aerosol inhaler 2 puff inhalation Q4H Qty: 8.5 RF: 0 Dexilant 60 mg capsule,biphase delayed releas 60 mg PO BEDTIME 30 Days Qty: 30 RF: 3 simethicone [Gas Relief (simethicone)] 180 mg capsule 180 mg PO QIDACHS 30 Days Qty: 120 RF: 6 Linzess 72 mcg capsule 72 mcg PO QAM 30 Days Qty: 30 RF: 6 famotidine [Pepcid] 40 mg tablet 40 mg PO BEDTIME 30 Days Qty: 30 RF: 6 Referrals: Thee Tay MD [Primary Care Provider] - 2 days
[2021-03-12 15:42] VITALS: BP 136/70; PULSE 88; O2SAT 99; BMI 40.4
[2021-03-12 15:54] VITALS: BP 137/77; PULSE 86; RESP 16; TEMP 36.6; O2SAT 98
[2021-03-12 16:08] LABS: MANUAL DIFF FLAG NO
[2021-03-12 16:13] LABS: Basophils Absolute Auto 0.1 X10*3/uL (0.0-0.2); Basophils Percent Auto 0.7 % (0-2); Eosinophils Absolute Auto 0.3 X10*3/uL (0.0-0.4); Eosinophils Percent Auto 2.9 % (0-4); Hematocrit 41.4 % (37.0-47.0); Hemoglobin 13.6 g/dl (12.0-16.0); Imm Gran Abs Auto 0.03 X10*3/uL (0.00-0.03); Imm Gran Pct Auto 0.3 % (0.0-0.4); Lymphocytes Absolute Auto 2.2 X10*3/uL (1.2-4.9); Lymphocytes Percent Auto 21.1 % (20-40); Mean Corpuscular HGB Conc 32.9 g/dl (31.0-35.0); Mean Corpuscular Hemoglobin 27.1 pg (27.0-33.0); Mean Corpuscular Volume 82.5 fL (80.0-98.0); Mean Platelet Volume 10.3 fL (9.4-12.3); Monocytes Absolute Auto 0.7 X10*3/uL (0.1-1.2); Monocytes Percent Auto 6.3 % (2-11); Neutrophils Absolute Auto 7.2 x10*3/uL (2.0-8.3); Neutrophils Percent Auto 68.7 % (45-73); Platelet Count 317 X10*3/uL (160-400); Red Blood Count 5.02 X10*6/uL (4.20-5.50); White Blood Count 10.5 X10*3/uL (4.8-10.8)
[2021-03-12 16:31] LABS: Troponin-I High Sensitivity < 3.5 ng/L (<3.5-17.0)
[2021-03-12 16:47] VITALS: BP 133/77; PULSE 86; RESP 16; TEMP 36.6; O2SAT 98
[2021-03-12 17:07] LABS: Alanine Aminotransferase 19 U/L (0-31); Albumin Level 4.2 g/dL (3.5-5.0); Alkaline Phosphatase 153 U/L (39-117); Anion Gap 12 (12-20); Aspartate Amino Transferase 17 U/L (5-31); Bilirubin Total 0.2 mg/dL (0.0-1.0); Blood Urea Nitrogen 9 mg/dL (9-16); Calcium 9.5 mg/dL (8.4-10.2); Carbon Dioxide 24 mmol/L (22-29); Chloride 108 mmol/L (96-108); Creatinine Clr Calc Pharmacy 113.9; Estimated Glomerular Filt Rate > 60; Glucose Random 94 mg/dL (60-115); Potassium 4.1 mmol/L (3.3-5.1); Sodium 140 mmol/L (135-145); Total Protein 6.6 g/dL (6.5-8.0)
[2021-03-12] MEDS: Butalb/Acetamin/Caff 50/325/40 TABLET 2 TAB PO (18:14)
[2021-03-12] MEDS: 0.9 % Sodium Chloride 1,000 ML 999 ML IVCONT (18:15)
[2021-03-12 20:13] VITALS: BP 127/81; PULSE 87; RESP 18; TEMP 36.9; O2SAT 96
--- NOTE | 2021-03-12 20:14 | PC.NURSE ---
Pt alert and oriented x4, calm and cooperative. Pt denies pain. Denies symptoms at this time. Denies dizziness. Ambulating well steady on her feet. Pt educated on dc teaching. IV removed. Vitals stable. Pt picked up by .
== END 2021-03-12 20:15 | disposition home or self-care (01) ==
PROVIDERS: Emergency Provider Emergency Medicine; PCP Internal Medicine
DX: R42 Dizziness and giddiness (principal); M25.512 Pain in left shoulder; R51.9 Headache, unspecified; Z79.899 Other long term (current) drug therapy; Z87.891 Personal history of nicotine dependence
CPT/HCPCS: 36415; 70450; 80053; 84484; 85025; 93005; 96360; 99284

== ENCOUNTER 2021-04-04 11:07 | Outpatient (REF) | payer OTHER, SELFPAY | END 2021-04-04 11:08 | disposition home or self-care (01) | LOC: HO.HMGCLDS 11:07 | PROVIDERS: PCP Internal Medicine; Visit Provider Internal Medicine | DX: Z20.822 Contact with and (suspected) exposure to COVID-19 (principal) | CPT/HCPCS: C9803; U0003; U0005 ==

== ENCOUNTER 2021-04-08 17:33 | Emergency (ER) | payer OTHER, SELFPAY ==
--- NOTE | 2021-04-08 | ECG_ITS ---
Test Reason : CHEST PAIN Blood Pressure : / mmHG Vent. Rate : 082 BPM Atrial Rate : 082 BPM P-R Int : 172 ms QRS Dur : 082 ms QT Int : 366 ms P-R-T Axes : 033 002 013 degrees QTc Int : 427 ms Normal sinus rhythm Nonspecific ST abnormality Abnormal ECG When compared with ECG of 12-MAR-2021 16:29, Inverted T waves have replaced nonspecific T wave abnormality in Inferior leads Referred By: Generic ED Physician Electronically Signed By:JEFFERY NASH MD
--- NOTE | ~2021-04-08 | XR_ITS ---
EXAMINATION: XR CHEST CLINICAL INFORMATION: Chest pain COMPARISON: Chest x-ray 07/19/2019 TECHNIQUE: Frontal portable view of the chest was obtained. 6:38 PM FINDINGS: No significant abnormality is noted involving the heart, lungs, mediastinum, bony thorax or soft tissues. XR/XR chest 1V IMPRESSION: Unremarkable examination.
[2021-04-08 17:49] VITALS: BP 142/0; BP 142/88; PULSE 72; PULSE 79; RESP 12; TEMP 36.5; O2SAT 93; O2SAT 99; BMI 40.7
--- NOTE | 2021-04-08 17:59 | PC.NURSE ---
PT arrived via EMS on O2 at 3L/min. This RN removed oxygen momentarily to determine O2 sat. PT O2 dropped down to 93% on RA. PT placed on O2 at 2 L/min. Current sat 96%
[2021-04-08 18:41] VITALS: BP 112/82; PULSE 89; RESP 16; TEMP 36.6; O2SAT 98
[2021-04-08 18:55] LABS: MANUAL DIFF FLAG NO
[2021-04-08 19:00] LABS: Appearance Urine CLEAR; Color Urine STRAW; Glucose Urine UA NEG (NEG); Leukocyte Esterase Urine NEG (NEG); Nitrite Urine NEG (NEG); Specific Gravity - Urine <= 1.005 (1.005-1.025); UACC Culture Trigger NO; Urine Blood TRACE (NEG); Urine Ketones NEG (NEG); Urine Protein NEG (NEG-TRACE)
--- NOTE | 2021-04-08 19:05 | ED.CHESTPAIN ---
HPI - Chest Pain General Chief Complaint: Chest Pain Stated Complaint: chest pain Time Seen by Provider: 04/08/21 19:04 History of Present Illness HPI narrative: Patient is a 51-year-old female presents today with having chest pain. The pain has been fairly constant over the right chest for the last 3 days. Worse with coughing congestion upper respiratory symptoms. No history of diabetes, hypertension, high cholesterol, smoking. Positive history of TIA. Positive history of cerebral aneurysm. Positive history of a blood clot during a cerebral aneurysm. Patient was on heparin for while. No recent stress test. The pain is constant Not made worse with movement. Not made worse with exertion. no focal weakness. Positive coughing positive generalized malaise. Patient is immunized for COVID. No booster shot. Related Data Previous Rx's Medication Instructions Recorded diphenhydramine HCl 25 mg capsule 25 mg PO TID PRN 30 Days #90 cap 09/25/20 (Banophen) fluticasone propionate 50 1 spray INTRANASAL DAILY 30 Days 11/27/20 mcg/actuation nasal #16 g spray,suspension (Flonase Allergy Relief) linaclotide 72 mcg capsule 72 mcg PO QAM 30 Days #30 cap 12/10/20 (Linzess) simethicone 180 mg capsule (Gas 180 mg PO QIDACHS 30 Days #120 cap 12/10/20 Relief (simethicone)) montelukast 10 mg tablet 10 mg PO DAILY #30 tab 12/19/20 loratadine 10 mg tablet 10 mg PO DAILY #30 tab 01/07/21 famotidine 40 mg tablet (Pepcid) 40 mg PO BEDTIME 30 Days #30 tab 01/22/21 fmithdkmck-whffkelbxxkye-gjsnzvbx 1 cap PO Q8H PRN #10 cap 03/12/21 50 mg-300 mg-40 mg capsule (Fioricet) dexlansoprazole 60 mg 60 mg PO BEDTIME 30 Days #30 cap 03/12/21 capsule,biphase delayed release (Dexilant) ProAir HFA 90 mcg/actuation 2 puff INHALATION Q4H #8.5 g NS 03/19/21 aerosol inhaler (albuterol sulfate) levothyroxine 150 mcg tablet 150 mcg PO DAILY 90 Days #90 tab 03/19/21 Allergies Allergy/AdvReac Type Severity Reaction Status Date / Time NSAIDS (Non-Steroidal Allergy Severe THROAT Verified 03/15/21 13:39 Anti-Inflamma SWELLING [NSAIDS (NON-STEROIDAL ANTI-INFLAMMA] niacin Allergy Intermediate skin Verified 03/15/21 13:39 [Niaspan Extended-Release] blisters tramadol Allergy Intermediate seizures Verified 03/15/21 13:39 barley [BARLEY] Allergy Unknown UNKNOWN Verified 03/15/21 13:39 fluticasone [Advair Diskus] Allergy Unknown unknown Verified 03/15/21 13:39 ibuprofen Allergy Unknown Unknown Verified 03/15/21 13:39 naratriptan Allergy Unknown unknown Verified 03/15/21 13:39 Penicillins [PENICILLINS] Allergy Unknown UNKNWON Verified 03/15/21 13:39 sumatriptan Allergy Unknown unknown Verified 03/15/21 13:39 trazodone [TRAZODONE] Allergy Unknown UNKNOWN Verified 03/15/21 13:39 Review of Systems Review of Systems: positive chest pain minimal shortness of breath no diaphoresis all system reviewed otherwise negative Yes all other systems are reviewed and are negative PMFSH Past Medical History Attestation statement: The following information was validated with the patient. Medical History Anemia Aneurysm Asthma GERD (gastroesophageal reflux disease) Thyroid disease Surgical History H/O brain surgery History of colonoscopy Family History Family History Father Diabetes Arthritis Diverticulitis Leukemia Lung cancer Mental health disorder Mother Arthritis Colon polyps Anemia Brother Crohn's disease Testicular cancer Brother Cancer Paternal Grandfather Leukemia Other Substance use disorder Social History Social History Household Members: Significant Other Housing: House Alcohol intake: current Alcohol intake frequency: holidays/special occasions only Alcohol type: wine Patient Tobacco Use Status: Former Tobacco user (7 years ) Tobacco use type: Cigarette Advance Directives: No Advance Directives Information Provided: Yes Advance Directives Date on File: 01/27/20 Patient : No 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al status: disabled 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 Physical Exam Vital Signs: Vital Signs: Last Vital Signs Temp 97.8 F 04/08/21 18:41 Pulse 89 04/08/21 18:41 Resp 16 04/08/21 18:41 BP 112/82 04/08/21 18:41 Pulse Ox 98 04/08/21 18:41 BMI result Body Mass Index 40.7 Appearance: Alert. Oriented X3. No acute distress. Eyes: Pupils equal, round and reactive to light. ENT: Pharynx normal. Neck: Normal inspection. Neck supple. No lymph nodes noted. No crepitus CVS: Normal heart rate and rhythm. Pulses normal. Normal S1 and S2 Respiratory: No respiratory distress. Breath sounds normal. No Wheezing. No rales Abdomen: Soft and nontender. No rigidity. No distention. good BS x4 Skin: Skin warm and dry. Normal skin color. Normal skin turgor. Extremities: No lower extremity edema. Neurovascular intact to all extremities. No Lacerations. No Rash Neuro: Oriented X 3. No motor deficit. No sensory deficit. Moving all extermities. No slurred speech MDM - Chest Pain MDM Narrative Medical decision making narrative: Patient's EKG showed a sinus rhythm heart rate is 90 NC QRS QTC within normal limits is no acute ST segment elevation. Patient's troponin is negative. Positive coughing upper respiratory symptoms. Patient's COVID test came back positive. Likely the cause of patient's shortness of breath. Chest x-ray showed no focal infiltrate. Patient's O2 sat after ambulation was 92-95% on room air. Will refer patient for monoclonal antibody. In stable condition. Will discharge home Medical Records Data Attestation: I reviewed the patient's medical records. Lab Data Attestation: I reviewed the patient's lab results. Result diagrams: 04/08/21 18:49 04/08/21 18:49 Labs: Lab Results 04/08/21 04/08/21 04/08/21 Range/Units 18:49 18:49 18:49 WBC 6.4 (4.8-10.8) X10*3/uL RBC 4.70 (4.20-5.50) X10*6/uL Hgb 12.6 (12.0-16.0) g/dl Hct 38.3 (37.0-47.0) % MCV 81.5 (80.0-98.0) fL MCH 26.8 L (27.0-33.0) pg MCHC 32.9 (31.0-35.0) g/dl RDW 13.3 (11.0-16.0) % Plt Count 248 (160-400) X10*3/uL MPV 10.5 (9.4-12.3) fL Immature Gran % (Auto) 0.3 (0.0-0.4) % Neut % (Auto) 66.9 (45-73) % Lymph % (Auto) 21.4 (20-40) % [place] % (Auto) 8.0 (2-11) % Eos % (Auto) 2.5 (0-4) % Baso % (Auto) 0.9 (0-2) % Lymph # (Auto) 1.4 (1.2-4.9) X10*3/uL [place] # (Auto) 0.5 (0.1-1.2) X10*3/uL Eos # (Auto) 0.2 (0.0-0.4) X10*3/uL Baso # (Auto) 0.1 (0.0-0.2) X10*3/uL Abs Immat Gran (auto) 0.02 (0.00-0.03) X10*3/uL Absolute Neuts (auto) 4.3 (2.0-8.3) x10*3/uL Absolute Nucleated RBC 0.000 (0.0-0.012) X10*3/uL Nucleated RBC % (auto) 0.0 (0.0-0.2) /100WBC D-Dimer High Sensitivty NG/ML Sodium 142 (135-145) mmol/L Potassium 3.7 (3.3-5.1) mmol/L Chloride 111 H (96-108) mmol/L Carbon Dioxide 22 (22-29) mmol/L Anion Gap 13 (12-20) BUN 7 L (9-16) mg/dL Creatinine 0.67 (0.5-1.4) mg/dL Estim Creat Clear Calc 124.7 Estimated GFR > 60 Random Glucose 101 (60-115) mg/dL Calcium 9.2 (8.4-10.2) mg/dL Troponin I High Sens < 3.5 (<3.5-17.0) ng/L Urine Color Urine Appearance Urine pH (5.0-8.0) Ur Specific [place] (1.005-1.025) Urine Protein (NEG-TRACE) MG/DL Urine Glucose (UA) (NEG) MG/DL Urine Ketones (NEG) MG/DL Urine Blood (NEG) Urine Nitrite (NEG) Ur Leukocyte Esterase (NEG) Urine RBC (0) /HPF Urine WBC (0-4) /HPF Ur Squamous Epith Cells /LPF Urine Bacteria /LPF COVID-19 (BESS) (Negative) COVID-19 Clin Com 04/08/21 04/08/21 04/08/21 Range/Units 18:49 18:49 19:34 WBC (4.8-10.8) X10*3/uL RBC (4.20-5.50) X10*6/uL Hgb (12.0-16.0) g/dl Hct (37.0-47.0) % MCV (80.0-98.0) fL MCH (27.0-33.0) pg MCHC (31.0-35.0) g/dl RDW (11.0-16.0) % Plt Count (160-400) X10*3/uL MPV (9.4-12.3) fL Immature Gran % (Auto) (0.0-0.4) % Neut % (Auto) (45-73) % Lymph % (Auto) (20-40) % [place] % (Auto) (2-11) % Eos % (Auto) (0-4) % Baso % (Auto) (0-2) % Lymph # (Auto) (1.2-4.9) X10*3/uL [place] # (Auto) (0.1-1.2) X10*3/uL Eos # (Auto) (0.0-0.4) X10*3/uL Baso # (Auto) (0.0-0.2) X10*3/uL Abs Immat Gran (auto) (0.00-0.03) X10*3/uL Absolute Neuts (auto) (2.0-8.3) x10*3/uL Absolute Nucleated RBC (0.0-0.012) X10*3/uL Nucleated RBC % (auto) (0.0-0.2) /100WBC D-Dimer High Sensitivty 152 NG/ML Sodium (135-145) mmol/L Potassium (3.3-5.1) mmol/L Chloride (96-108) mmol/L Carbon Dioxide (22-29) mmol/L Anion Gap (12-20) BUN (9-16) mg/dL Creatinine (0.5-1.4) mg/dL Estim Creat Clear Calc Estimated GFR Random Glucose (60-115) mg/dL Calcium (8.4-10.2) mg/dL Troponin I High Sens (<3.5-17.0) ng/L Urine Color STRAW Urine Appearance CLEAR Urine pH 6.0 (5.0-8.0) Ur Specific [place] <= 1.005 (1.005-1.025) Urine Protein NEG (NEG-TRACE) MG/DL Urine Glucose (UA) NEG (NEG) MG/DL Urine Ketones NEG (NEG) MG/DL Urine Blood TRACE (NEG) Urine Nitrite NEG (NEG) Ur Leukocyte Esterase NEG (NEG) Urine RBC 0-2 (0) /HPF Urine WBC 0-2 (0-4) /HPF Ur Squamous Epith Cells 1+ /LPF Urine Bacteria TRACE /LPF COVID-19 (BESS) Positive A (Negative) COVID-19 Clin Com See Note Discharge Plan Discharge Clinical Impression: COVID-19 Patient Disposition: Home, Self-Care Instructions: COVID-19 (Coronavirus Disease 2019) (ED) Additional Instructions: Please follow-up for monoclonal antibody. A copy of the referral sheet was given to you. Prescriptions: No Action diphenhydramine HCl [Banophen] 25 mg capsule 25 mg PO TID PRN (Reason: itching) 30 Days Qty: 90 RF: 1 fluticasone propionate [Flonase Allergy Relief] 50 mcg/actuation spray,suspension 1 spray intranasal DAILY 30 Days Qty: 16 RF: 5 montelukast 10 mg tablet 10 mg PO DAILY Qty: 30 RF: 3 loratadine 10 mg tablet 10 mg PO DAILY Qty: 30 RF: 3 Dexilant 60 mg capsule,biphase delayed releas 60 mg PO BEDTIME 30 Days Qty: 30 RF: 3 albuterol sulfate [ProAir HFA] 90 mcg/actuation HFA aerosol inhaler 2 puff inhalation Q4H Qty: 8.5 RF: 0 levothyroxine 150 mcg tablet 150 mcg PO DAILY 90 Days Qty: 90 RF: 3 vopymdwhvt-qbvclocntiavn-bdpr [Fioricet] 50-300-40 mg capsule 1 cap PO Q8H PRN (Reason: headache) Qty: 10 RF: 0 simethicone [Gas Relief (simethicone)] 180 mg capsule 180 mg PO QIDACHS 30 Days Qty: 120 RF: 6 Linzess 72 mcg capsule 72 mcg PO QAM 30 Days Qty: 30 RF: 6 famotidine [Pepcid] 40 mg tablet 40 mg PO BEDTIME 30 Days Qty: 30 RF: 6 Referrals: Vernon Rodríguez MD [Primary Care Provider] - 2 days ( please follow-up for monoclonal antibody. Please contact them tomorrow.)
[2021-04-08 19:09] LABS: COVID-19 Test Positive (Negative); IDNOW Serial# 9DD0AD1C
[2021-04-08 19:11] LABS: Anion Gap 13 (12-20); Blood Urea Nitrogen 7 mg/dL (9-16); Calcium 9.2 mg/dL (8.4-10.2); Carbon Dioxide 22 mmol/L (22-29); Chloride 111 mmol/L (96-108); Creatinine Clr Calc Pharmacy 124.7; Estimated Glomerular Filt Rate > 60; Glucose Random 101 mg/dL (60-115); Potassium 3.7 mmol/L (3.3-5.1); Sodium 142 mmol/L (135-145)
[2021-04-08 19:14] LABS: Bacteria Urine TRACE /LPF; Basophils Absolute Auto 0.1 X10*3/uL (0.0-0.2); Basophils Percent Auto 0.9 % (0-2); Eosinophils Absolute Auto 0.2 X10*3/uL (0.0-0.4); Eosinophils Percent Auto 2.5 % (0-4); Hematocrit 38.3 % (37.0-47.0); Hemoglobin 12.6 g/dl (12.0-16.0); Imm Gran Abs Auto 0.02 X10*3/uL (0.00-0.03); Imm Gran Pct Auto 0.3 % (0.0-0.4); Lymphocytes Absolute Auto 1.4 X10*3/uL (1.2-4.9); Lymphocytes Percent Auto 21.4 % (20-40); Mean Corpuscular HGB Conc 32.9 g/dl (31.0-35.0); Mean Corpuscular Hemoglobin 26.8 pg (27.0-33.0); Mean Corpuscular Volume 81.5 fL (80.0-98.0); Mean Platelet Volume 10.5 fL (9.4-12.3); Monocytes Absolute Auto 0.5 X10*3/uL (0.1-1.2); Neutrophils Absolute Auto 4.3 x10*3/uL (2.0-8.3); Neutrophils Percent Auto 66.9 % (45-73); Platelet Count 248 X10*3/uL (160-400); RBC Urine 0-2 /HPF (0); Red Cell Distribution Width 13.3 % (11.0-16.0); Squamous Epithelial Cell Urine 1+ /LPF; WBC Urine 0-2 /HPF (0-4); White Blood Count 6.4 X10*3/uL (4.8-10.8)
[2021-04-08 19:19] LABS: Troponin-I High Sensitivity < 3.5 ng/L (<3.5-17.0)
[2021-04-08 19:49] LABS: D Dimer High Sensitivity 152 NG/ML
== END 2021-04-08 21:16 | disposition home or self-care (01) ==
PROVIDERS: Emergency Provider Emergency Medicine Emergency Medical Services; PCP Internal Medicine
DX: U07.1 COVID-19 (principal); J45.909 Unspecified asthma, uncomplicated; Z86.73 Personal history of transient ischemic attack (TIA), and cerebral infarction without residual deficits
CPT/HCPCS: 36415; 71045; 80048; 81001; 81003; 84484; 85025; 85379; 87635; 93005; 99284

== ENCOUNTER 2021-04-09 13:35 | Emergency (ER) | payer OTHER, SELFPAY ==
--- NOTE | ~2021-04-09 | XR_ITS ---
EXAMINATION: XR CHEST CLINICAL INFORMATION: Shortness of breath. COMPARISON: Chest done on 04/08/2021. TECHNIQUE: Frontal view of the chest was obtained. FINDINGS: No significant abnormality is noted involving the heart, lungs, mediastinum, bony thorax or soft tissues. XR/XR chest 1V IMPRESSION: Unremarkable examination. No significant change.
[2021-04-09 13:51] VITALS: BP 134/78; BP 167/82; PULSE 80; PULSE 85; RESP 18; TEMP 36.8; O2SAT 97; O2SAT 99; BMI 40.7
--- NOTE | 2021-04-09 13:59 | ECG_ITS ---
Test Reason : CP Blood Pressure : / mmHG Vent. Rate : 084 BPM Atrial Rate : 084 BPM P-R Int : 166 ms QRS Dur : 082 ms QT Int : 360 ms P-R-T Axes : 036 004 021 degrees QTc Int : 425 ms Normal sinus rhythm Normal ECG When compared with ECG of 08-APR-2021 18:32, No significant change was found Referred By: Kacie Andino Electronically Signed By:JEFFERY NASH MD
--- NOTE | 2021-04-09 14:03 | ED_ITS ---
HPI - SOB/Dyspnea General Chief Complaint: Dyspnea Stated Complaint: DIFFBREATHING,+COVID Time Seen by Provider: 04/09/21 13:59 Source: patient, EMS and old records reviewed Mode of arrival: EMS Limitations: no limitations History of Present Illness HPI Narrative: 51 yo female with history of GERD, hypothyroidism, asthma & anemia who presents to the ER with SOB and recurrent falls at home in the setting of being diagnosed with COVID-19 here yesterday. Her symptoms started 4 days ago. She got her J&J COVID-19 vaccination in December. She had a normal chest x-ray done yesterday as well as a negative D-dimer. She was sent home with a referral for monoclonal antibodies however has no transportation to get there. She states when she went home she had having coughing fits and kept falling over whenever she was coughing. She denies any syncope. She reports she is generally weak and does not feel safe at home given her recurrent falls. Do not hit her head or lose consciousness with any of the falls. Her breathing is short and worse with any exertion as well as worse with her coughing fits. She is not bring up any phlegm. MD elicited complaint: shortness of breath and cough Pertinent past history: asthma Onset (ago): day(s) Context: recent illness Timing: constant Severity: severe Exacerbating factors: exertion and coughing Relieving factors: rest and upright position Known history of: asthma Associated symptoms: pain with inspiration and cough Treatment prior to arrival: none Related Data Home oxygen amount: none Previous Rx's Medication Instructions Recorded diphenhydramine HCl 25 mg capsule 25 mg PO TID PRN 30 Days #90 cap 09/25/20 (Banophen) fluticasone propionate 50 1 spray INTRANASAL DAILY 30 Days 11/27/20 mcg/actuation nasal #16 g spray,suspension (Flonase Allergy Relief) linaclotide 72 mcg capsule 72 mcg PO QAM 30 Days #30 cap 12/10/20 (Linzess) simethicone 180 mg capsule (Gas 180 mg PO QIDACHS 30 Days #120 cap 12/10/20 Relief (simethicone)) montelukast 10 mg tablet 10 mg PO DAILY #30 tab 12/19/20 loratadine 10 mg tablet 10 mg PO DAILY #30 tab 01/07/21 famotidine 40 mg tablet (Pepcid) 40 mg PO BEDTIME 30 Days #30 tab 01/22/21 fjgzzwdhxi-stsmzrxovcuep-wamuxamx 1 cap PO Q8H PRN #10 cap 03/12/21 50 mg-300 mg-40 mg capsule (Fioricet) dexlansoprazole 60 mg 60 mg PO BEDTIME 30 Days #30 cap 03/12/21 capsule,biphase delayed release (Dexilant) ProAir HFA 90 mcg/actuation 2 puff INHALATION Q4H #8.5 g NS 03/19/21 aerosol inhaler (albuterol sulfate) levothyroxine 150 mcg tablet 150 mcg PO DAILY 90 Days #90 tab 03/19/21 Allergies Allergy/AdvReac Type Severity Reaction Status Date / Time NSAIDS (Non-Steroidal Allergy Severe THROAT Verified 03/15/21 13:39 Anti-Inflamma SWELLING [NSAIDS (NON-STEROIDAL ANTI-INFLAMMA] niacin Allergy Intermediate skin Verified 03/15/21 13:39 [Niaspan Extended-Release] blisters tramadol Allergy Intermediate seizures Verified 03/15/21 13:39 barley [BARLEY] Allergy Unknown UNKNOWN Verified 03/15/21 13:39 fluticasone [Advair Diskus] Allergy Unknown unknown Verified 03/15/21 13:39 ibuprofen Allergy Unknown Unknown Verified 03/15/21 13:39 naratriptan Allergy Unknown unknown Verified 03/15/21 13:39 Penicillins [PENICILLINS] Allergy Unknown UNKNWON Verified 03/15/21 13:39 sumatriptan Allergy Unknown unknown Verified 03/15/21 13:39 trazodone [TRAZODONE] Allergy Unknown UNKNOWN Verified 03/15/21 13:39 Review of Systems Review of Systems: Constitutional: No Fever, No Chills ENT/Mouth: No sore throat, No Rhinorrhea Cardiovascular: + Chest Pain, + SOB, No Orthopnea, No Edema Respiratory: + Cough, No Sputum, No Wheezing, + dyspnea Gastrointestinal: No Nausea, No Vomiting, No Diarrhea, No abdominal Pain Genitourinary: No Dysuria, No Urinary Frequency, No Hematuria Musculoskeletal: No joint pain, No Myalgias Skin: No Skin Lesions, No rash Neuro: + Weakness, No Numbness, No Dizziness, No Headache Psych: No Anxiety/Panic, No Depression Heme/Lymph: No Bruising, No Lymphadenopathy Endocrine: No Polyuria, No Polydipsia PMFSH Past Medical History Medical History (Updated 04/09/21 @ 15:10 by DAVID Mclean) Anemia Aneurysm Asthma COVID-19 GERD (gastroesophageal reflux disease) Thyroid disease Surgical History H/O brain surgery History of colonoscopy Family History Family History Father Diabetes Arthritis Diverticulitis Leukemia Lung cancer Mental health disorder Mother Arthritis Colon polyps Anemia Brother Crohn's disease Testicular cancer Brother Cancer Paternal Grandfather Leukemia Other Substance use disorder Social History Social History Household Members: Significant Other Housing: House Alcohol intake: current Alcohol intake frequency: holidays/special occasions only Alcohol type: wine Patient Tobacco Use Status: Former Tobacco user (7 years ) Tobacco use type: Cigarette Advance Directives: No Advance Directives Information Provided: No Advance Directives Date on File: 01/27/20 Patient : No 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al status: disabled 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 Physical Exam Vital Signs: Vital Signs: Last Vital Signs Temp 98.3 F 04/09/21 13:51 Pulse 85 04/09/21 13:51 Resp 18 04/09/21 13:51 BP 134/78 04/09/21 13:51 Pulse Ox 97 04/09/21 13:51 BMI result Body Mass Index 40.7 Appearance: Alert. Oriented X3. No acute distress. Eyes: Pupils equal, round and reactive to light. ENT: Pharynx normal. Neck: Normal inspection. Neck supple. CVS: Normal heart rate and rhythm. Pulses normal. Respiratory: No respiratory distress. Breath sounds normal. Poor inspiratory effort Abdomen: Obese Soft and nontender. +BS x4 Skin: Skin warm and dry. Normal skin color. Normal skin turgor. No rashes. Extremities: No lower extremity edema. No calf tenderness Neuro: Oriented X 3. Grossly normal, nonfocal Course Course Course Narrative: 51-year-old female presents to the ER with shortness of breath, chest tightness and recurrent falls at home. She was diagnosed with COVID-19 yesterday. She rides with oxygen saturations 96% on room air heart rate 80. No fever. She appears well. She reports she is too weak to go home. Will repeat chest x-ray EKG today. She had a extensive workup yesterday including a negative D-dimer. Will plan to get PT evaluation and having case management consult for possible placement to acute rehab until her strength is regained. Reevaluation(s) Reevaluation #1: Chest x-ray remains clear & EKG is normal. Will get Physical therapy to evaluate her. She is in agreement. Physician observation started at 15:07. Patient placed in physician observation because patient is awaiting [facility] evaluation for the possible need of inpatient psych admission. At the time observation was started patient's vital signs were stable. Patient is alert and oriented. Neuro exam is non-focal. CV: RRR and lungs are clear. Will continue to monitor. MDM - SOB/Dyspnea ECG Data Attestation: I personally reviewed and interpreted this ECG as follows: ECG interpretation date: 04/09/21 ECG interpretation time: 15:10 Prior ECG tracings: available for review Interpretation: Normal sinus rhythm, heart rate 84 beats per minute, OK interval 166, normal QRS, no ST segment elevations or depressions. Isolated T-wave inversion in V1. Critical Care Time Critical Care Time Critical Care Time: No Discharge Plan Discharge Clinical Impression: COVID-19, Weakness Prescriptions: No Action diphenhydramine HCl [Banophen] 25 mg capsule 25 mg PO TID PRN (Reason: itching) 30 Days Qty: 90 RF: 1 fluticasone propionate [Flonase Allergy Relief] 50 mcg/actuation spray,suspension 1 spray intranasal DAILY 30 Days Qty: 16 RF: 5 montelukast 10 mg tablet 10 mg PO DAILY Qty: 30 RF: 3 loratadine 10 mg tablet 10 mg PO DAILY Qty: 30 RF: 3 Dexilant 60 mg capsule,biphase delayed releas 60 mg PO BEDTIME 30 Days Qty: 30 RF: 3 albuterol sulfate [ProAir HFA] 90 mcg/actuation HFA aerosol inhaler 2 puff inhalation Q4H Qty: 8.5 RF: 0 levothyroxine 150 mcg tablet 150 mcg PO DAILY 90 Days Qty: 90 RF: 3 qwtgmxrnoy-zbjkmiyymqqel-knyu [Fioricet] 50-300-40 mg capsule 1 cap PO Q8H PRN (Reason: headache) Qty: 10 RF: 0 simethicone [Gas Relief (simethicone)] 180 mg capsule 180 mg PO QIDACHS 30 Days Qty: 120 RF: 6 Linzess 72 mcg capsule 72 mcg PO QAM 30 Days Qty: 30 RF: 6 famotidine [Pepcid] 40 mg tablet 40 mg PO BEDTIME 30 Days Qty: 30 RF: 6
--- NOTE | 2021-04-09 14:48 | PC.NURSE ---
CXR AND EKG PERFORMED, PT IN ROOM DOING EVAL
[2021-04-09 15:12] VITALS: BP 139/62; PULSE 84; RESP 18; TEMP 36.7; O2SAT 98
--- NOTE | 2021-04-09 15:14 | MHC.CM.ED ---
Received case management consult from Kacie HERNANDEZ. Patient tested positive for Covid on 04/08. Patient's O2 sats are stable. Patient is complaining of increased weakness. Patient received J&J vaccine on 12/22. Referral broadcasted in [employer] to all facilities contracted with [facility] and accepting positive Covid patients. Continue to monitor for d/c needs.
--- NOTE | 2021-04-09 15:48 | PHA.MEDREC ---
med rec complete, no issues Pharmacy Consult ? Medication Reconciliation Pharmacy has completed the medication reconciliation.
--- NOTE | 2021-04-09 16:09 | PC.NURSE ---
patient c/o headache as well as sob, pt requesting ibuprofen as well as updraft, will notify provider
--- NOTE | 2021-04-09 16:16 | MHC.CM.ED ---
CM met with pt. A&Ox3. Pt informed that [facility] has offered a bed and pt has accepted. Pt understands that her insurance needs to authorize payment and they can take up to 48 hours. Pt aware that she will remain in the ED. HCP reviewed, completed and signed per protocol. Copies given and uploaded into [employer] and [facility] [employer]. HCP/cousin Kassandra Leroy ([phone]). Pt lives with her boyfriend. She has no services or DME. Pt is safe at home. PT recommends STR. Pt is Covid positive on 04/08/21 with symptoms on 04/04/21. Pt was vaccinated with J&J on 12/22/20. CM to follow for d/c needs.
[2021-04-09] MEDS: Ibuprofen 600 MG TABLET PO (16:33)
--- NOTE | 2021-04-09 16:34 | PC.NURSE ---
patient a&ox3, medicated per order, will continue to monitor.
[2021-04-09 19:19] VITALS: BP 123/70; PULSE 91; RESP 20; TEMP 37.1; O2SAT 96
[2021-04-09] MEDS: diazePAM 5 MG TABLET 10 MG PO (19:39)
[2021-04-09] MEDS: Loratadine 10 MG TABLET PO (19:39)
[2021-04-09] MEDS: Acetaminophen 325 MG TABLET 975 MG PO (19:39)
--- NOTE | 2021-04-09 20:13 | PC.NURSE ---
patient a&ox3, pt requesting hospital bed vs stretcher which was provided, pt also requested a humidifier, fan and heating pad for her room. Pt was told that we were unable to provide those items at this time. Pt was appreciated of the hospital bed. Pt was also asked if she was able to have somebody bring in home medications which are not available at this facility, she stated at this time of night she was unable to do so but would find out tomm. pt is aware she is awaiting for case management placement.
--- NOTE | 2021-04-09 20:44 | PC.NURSE ---
called pharmacy to get missing med, will administer pm medications when it arrives
[2021-04-09 21:08] VITALS: BP 122/64; PULSE 84; RESP 18; O2SAT 95
[2021-04-09] MEDS: Fluticasone Propionate Nasal 16 GM SPRAY 2 SPRAY NOSTRIL-B (21:11)
[2021-04-09] MEDS: Simethicone 80 MG TAB.CHEW 160 MG PO (21:11)
[2021-04-09] MEDS: Montelukast Sodium 10 MG TABLET PO (21:12)
[2021-04-09] MEDS: Famotidine 20 MG TABLET 40 MG PO (21:20)
--- NOTE | 2021-04-09 21:23 | PC.NURSE ---
patient a&ox3, patient wanting something mask to cover her eyes to sleep, pt was offered a towel to do so. pt also requested pepsid which was given per her request. vitals stable, monitor technician nsr 80s, will continue to monitor.
[2021-04-09] MEDS: Throat Lozenge, Medicated LOZENGE 1 LOZENGE MUCOUS MEM (23:12)
[2021-04-09] MEDS: guaiFEN/Codeine SF 200/20/10ML 10 ML LIQUID PO (23:12)
[2021-04-09] MEDS: Ondansetron ODT 4 MG TAB.RAPDIS TRANSLINGU (23:12)
[2021-04-10] MEDS: Levothyroxine Sodium 150 MCG TABLET PO (06:17)
[2021-04-10 07:10] VITALS: BP 118/60; PULSE 91; RESP 27; TEMP 36.8; O2SAT 95
[2021-04-10] MEDS: Loratadine 10 MG TABLET PO (07:54)
[2021-04-10] MEDS: Acetaminophen 325 MG TABLET 650 MG PO (07:55)
[2021-04-10] MEDS: Simethicone 80 MG TAB.CHEW 160 MG PO (07:55)
[2021-04-10] MEDS: guaiFEN/Codeine SF 200/20/10ML 10 ML LIQUID 5 ML PO (07:55)
--- NOTE | 2021-04-10 09:53 | MHC.CM.ED ---
Patient remains in ER. Accepted bed at [facility]. Waiting for insurance auth from [facility] [place] [place] [facility]. Continue to monitor for d/c needs.
[2021-04-10 10:52] VITALS: PULSE 87; RESP 20; O2SAT 95
[2021-04-10] MEDS: Albuterol Sulfate 90 MCG 8 GM INHALER 2 PUFF INHALE (10:52)
--- NOTE | 2021-04-10 11:14 | PC.NURSE ---
lungs - diminshed all lobes
--- NOTE | 2021-04-10 11:56 | MHC.CM.ED ---
Insurance auth has been obtained by [facility]. Patient can leave at 130pm. [facility] booked. Med nec with chart. Patient, Snehal GONZALEZ and Dr Sotero Gómez at [facility] requesting home med list be sent with EMS crew to [facility]. Med list printed and with chart. Continue to monitor for d/c needs.
[2021-04-10] MEDS: Benzonatate 100 MG CAPSULE PO (14:02)
== END 2021-04-10 14:00 | disposition skilled nursing facility (03) ==
PROVIDERS: Emergency Provider Emergency Medicine; PCP Internal Medicine
DX: U07.1 COVID-19 (principal); R53.1 Weakness; R06.02 Shortness of breath; R29.6 Repeated falls; J45.909 Unspecified asthma, uncomplicated; Z79.899 Other long term (current) drug therapy
CPT/HCPCS: 71045; 93005; 94640; 97162; 99285

== ENCOUNTER → 2021-05-09 09:48 | Outpatient (BNVA) | payer OTHER, SELFPAY | PROVIDERS: PCP Internal Medicine; Referring Provider Internal Medicine; Visit Provider Nurse Practitioner ==

== ENCOUNTER → 2021-05-30 13:49 | Outpatient (BNVA) | payer OTHER, SELFPAY | PROVIDERS: PCP Internal Medicine; Visit Provider Internal Medicine Pulmonary Disease ==

== ENCOUNTER → 2021-07-05 09:15 | Outpatient (BNVA) | payer OTHER, SELFPAY | PROVIDERS: PCP Internal Medicine; Visit Provider Internal Medicine Pulmonary Disease | DX: J45.50 Severe persistent asthma, uncomplicated (principal); Z91.09 Other allergy status, other than to drugs and biological substances | CPT/HCPCS: 99212 ==

== ENCOUNTER 2021-07-05 11:06 | Outpatient (REF) | payer OTHER, SELFPAY | END 2021-07-05 11:07 | disposition home or self-care (01) | LOC: HO.MDS 11:06 | PROVIDERS: Visit Provider Internal Medicine Pulmonary Disease | DX: J45.50 Severe persistent asthma, uncomplicated (principal) | CPT/HCPCS: 96372; J2357 ==

== ENCOUNTER 2021-08-02 08:56 | Outpatient (REF) | payer OTHER, SELFPAY | END 2021-08-02 08:57 | disposition home or self-care (01) | LOC: HO.MDS 08:56 | PROVIDERS: PCP Internal Medicine; Visit Provider Internal Medicine Pulmonary Disease | DX: J45.50 Severe persistent asthma, uncomplicated (principal) | CPT/HCPCS: 96372; J2357 ==

== ENCOUNTER 2021-08-30 08:27 | Outpatient (REF) | payer OTHER, SELFPAY | END 2021-08-30 08:28 | disposition home or self-care (01) | LOC: HO.MDS 08:27 | PROVIDERS: Visit Provider Internal Medicine Pulmonary Disease | DX: J45.50 Severe persistent asthma, uncomplicated (principal) | CPT/HCPCS: 96372; J1200; J2357 ==

== ENCOUNTER → 2021-09-03 12:14 | Outpatient (BNVA) | payer OTHER, SELFPAY | PROVIDERS: PCP Internal Medicine; Referring Provider Internal Medicine; Visit Provider Nurse Practitioner | DX: K21.9 Gastro-esophageal reflux disease without esophagitis (principal); K59.00 Constipation, unspecified; R14.0 Abdominal distension (gaseous); R11.2 Nausea with vomiting, unspecified | CPT/HCPCS: 99212 ==

== ENCOUNTER 2021-10-07 14:16 | Outpatient (REF) | payer OTHER, SELFPAY | END 2021-10-07 14:17 | disposition home or self-care (01) | LOC: HO.MDS 14:16 | PROVIDERS: Visit Provider Internal Medicine Pulmonary Disease | DX: J45.50 Severe persistent asthma, uncomplicated (principal) | CPT/HCPCS: 96372; J2357 ==

== ENCOUNTER 2021-11-04 11:54 | Outpatient (REF) | payer OTHER, SELFPAY | END 2021-11-04 11:55 | disposition home or self-care (01) | LOC: HO.MDS 11:54 | PROVIDERS: PCP Internal Medicine; Visit Provider Internal Medicine Pulmonary Disease | DX: J45.50 Severe persistent asthma, uncomplicated (principal) | CPT/HCPCS: 96372; J2357 ==

== ENCOUNTER → 2021-11-07 09:46 | Outpatient (BNVA) | payer OTHER, SELFPAY | PROVIDERS: PCP Internal Medicine; Visit Provider Internal Medicine Pulmonary Disease | DX: J45.50 Severe persistent asthma, uncomplicated (principal); Z91.09 Other allergy status, other than to drugs and biological substances; Z79.899 Other long term (current) drug therapy | CPT/HCPCS: 99212 ==

== ENCOUNTER 2021-11-14 09:15 | Outpatient (REF) | payer OTHER, SELFPAY ==
[2021-11-14 11:04] LABS: MANUAL DIFF FLAG NO
[2021-11-14 11:11] LABS: Basophils Absolute Auto 0.1 X10*3/uL (0.0-0.2); Basophils Percent Auto 0.7 % (0-2); Eosinophils Absolute Auto 0.3 X10*3/uL (0.0-0.4); Eosinophils Percent Auto 3.1 % (0-4); Hematocrit 43.5 % (37.0-47.0); Hemoglobin 13.9 g/dl (12.0-16.0); Imm Gran Abs Auto 0.03 X10*3/uL (0.00-0.03); Imm Gran Pct Auto 0.4 % (0.0-0.4); Lymphocytes Absolute Auto 2.4 X10*3/uL (1.2-4.9); Lymphocytes Percent Auto 28.1 % (20-40); Mean Corpuscular Hemoglobin 25.6 pg (27.0-33.0); Mean Corpuscular Volume 80.3 fL (80.0-98.0); Mean Platelet Volume 11.2 fL (9.4-12.3); Monocytes Absolute Auto 0.5 X10*3/uL (0.1-1.2); Neutrophils Absolute Auto 5.2 x10*3/uL (2.0-8.3); Neutrophils Percent Auto 61.7 % (45-73); Platelet Count 316 X10*3/uL (160-400); Red Blood Count 5.42 X10*6/uL (4.20-5.50); Red Cell Distribution Width 14.1 % (11.0-16.0); White Blood Count 8.4 X10*3/uL (4.8-10.8)
[2021-11-14 11:30] LABS: Alanine Aminotransferase 11 U/L (0-31); Albumin Level 4.3 g/dL (3.5-5.0); Alkaline Phosphatase 132 U/L (39-117); Anion Gap 16 (12-20); Aspartate Amino Transferase 12 U/L (5-31); Bilirubin Total 0.4 mg/dL (0.0-1.0); Blood Urea Nitrogen 14 mg/dL (9-16); Calcium 9.4 mg/dL (8.4-10.2); Carbon Dioxide 19 mmol/L (22-29); Chloride 111 mmol/L (96-108); Cholesterol 198 mg/dL; Estimated Glomerular Filt Rate > 60; Glucose Fasting 119 mg/dL (60-99); HDL Cholesterol 44 mg/dL; LDL Cholesterol Calculated 131 mg/dl; Potassium 4.3 mmol/L (3.3-5.1); Sodium 142 mmol/L (135-145); Total Protein 6.9 g/dL (6.5-8.0); Triglycerides 119 mg/dL
[2021-11-14 11:53] LABS: TSH reflex Free T4 0.57 uIU/mL (0.32-4.0)
== END 2021-11-14 09:16 | disposition home or self-care (01) ==
LOC: HO.HMGCLDS 09:15
PROVIDERS: PCP Internal Medicine; Visit Provider Internal Medicine
DX: Z00.01 Encounter for general adult medical examination with abnormal findings (principal); M75.41 Impingement syndrome of right shoulder; M25.561 Pain in right knee; E66.01 Morbid (severe) obesity due to excess calories; E03.9 Hypothyroidism, unspecified; R79.89 Other specified abnormal findings of blood chemistry
CPT/HCPCS: 36415; 80053; 80061; 84443; 85025

== ENCOUNTER 2021-12-02 11:05 | Outpatient (REF) | payer OTHER, SELFPAY | END 2021-12-02 11:06 | disposition home or self-care (01) | LOC: HO.MDS 11:05 | PROVIDERS: Visit Provider Internal Medicine Pulmonary Disease | DX: J45.50 Severe persistent asthma, uncomplicated (principal) | CPT/HCPCS: 96372; J2357 ==

== ENCOUNTER 2021-12-10 09:30 | Outpatient (REF) | payer OTHER, SELFPAY ==
--- NOTE | ~2021-12-10 | MM_ITS ---
EXAMINATION: MM SCREENING DIGITAL BREAST TOMOSYNTHESIS, BILATERAL CLINICAL INFORMATION: Screening. Asymptomatic. The lifetime risk of breast cancer based on the Tyrer-Cuzick Model is 7.1%. COMPARISON: Mammography: 04/12/2019 and 04/07/2018. TECHNIQUE: Digital breast tomosynthesis is performed in both the craniocaudal and mediolateral oblique views along with computer-aided detection (CAD). Synthesized 2D images are generated from the tomosynthesis. FINDINGS: The breasts are almost entirely fatty (ACR BI-RADS breast composition Category a). There are bilateral intramammary lymph nodes present. Within the upper outer aspect of the right breast, there are 2 circumscribed densities for which ultrasound evaluation is recommended. The more anterior of these measures approximately 8 x 5 mm in size with the deeper lesion measuring 7 x 6 mm in size. Both are smoothly marginated but I cannot definitely say that there are fatty clefts present. MM/MM tomosynthesis screening BI IMPRESSION: Right breast densities for further evaluation with ultrasound. ASSESSMENT: BI-RADS 0: Incomplete - Need Additional Imaging Evaluation RECOMMENDATION: Right breast ultrasound.
== END 2021-12-10 09:31 | disposition home or self-care (01) ==
LOC: HO.MAMMO 09:30
PROVIDERS: PCP Internal Medicine; Visit Provider Internal Medicine
DX: Z12.31 Encounter for screening mammogram for malignant neoplasm of breast (principal)
CPT/HCPCS: 77063; 77067

== ENCOUNTER 2021-12-19 12:47 | Outpatient (REF) | payer OTHER, SELFPAY ==
--- NOTE | ~2021-12-19 | US_ITS ---
EXAMINATION: US BREAST, DIAGNOSTIC, RIGHT CLINICAL INFORMATION: Right breast densities lateral aspect. COMPARISON: Mammography of 12/10/2021 and studies dating back to 04/07/2018. TECHNIQUE: Ultrasound of the breast is performed with real-time goyal scale imaging and color Doppler. FINDINGS: About the 9 o'clock position approximately 5 cm from nipple there is a 5 x 4 x 2 mm hypoechoic lesion with hyperechoic central area likely representing an intramammary lymph node. There is also a 4 x 2 mm hypoechoic cystic lesion at the 9 o'clock position 5 cm nipple. This is wider than it is tall without internal vascularity. No significant distal sound shadowing or enhancement is identified. At the 9 o'clock position 9 cm from the nipple there is a 3 x 2 x 4 mm hypoechoic lesion without internal vascularity and with some mild distal sound enhancement and no distal sound shadowing. Results are discussed with the patient at time of visit. US/US breast RT limited IMPRESSION: Probable benign right breast lesions lateral aspect. Right breast mammography in 6 months recommended to ensure stability. ASSESSMENT: BI-RADS 3: Probably Benign RECOMMENDATION: Diagnostic mammography in 6 months. This patient's information was entered into a reminder system with a target due date for their next mammogram.
== END 2021-12-19 12:48 | disposition home or self-care (01) ==
LOC: HO.MAMMO 12:47
PROVIDERS: PCP Internal Medicine; Visit Provider Internal Medicine
DX: R92.2 Inconclusive mammogram (principal)
CPT/HCPCS: 76642

== ENCOUNTER 2021-12-31 11:05 | Outpatient (REF) | payer OTHER, SELFPAY | END 2021-12-31 11:06 | disposition home or self-care (01) | LOC: HO.MDS 11:05 | PROVIDERS: Visit Provider Internal Medicine Pulmonary Disease | DX: J45.50 Severe persistent asthma, uncomplicated (principal) | CPT/HCPCS: 96372; J2357 ==

== ENCOUNTER 2022-02-04 12:21 | Outpatient (REF) | payer OTHER, SELFPAY | END 2022-02-04 12:22 | disposition home or self-care (01) | LOC: HO.MDS 12:21 | PROVIDERS: Visit Provider Internal Medicine Pulmonary Disease | DX: J45.50 Severe persistent asthma, uncomplicated (principal) | CPT/HCPCS: 96372; J2357 ==

== ENCOUNTER 2022-03-04 12:25 | Outpatient (REF) | payer OTHER, SELFPAY | END 2022-03-04 12:26 | disposition home or self-care (01) | LOC: HO.MDS 12:25 | PROVIDERS: Visit Provider Internal Medicine Pulmonary Disease | DX: J45.50 Severe persistent asthma, uncomplicated (principal) | CPT/HCPCS: 96372; J2357 ==

== ENCOUNTER 2022-03-24 11:19 | Emergency (ER) | payer OTHER, SELFPAY ==
--- NOTE | ~2022-03-24 | XR_ITS ---
EXAMINATION: XR CHEST CLINICAL INFORMATION: Cough and fever. COMPARISON: 04/09/2021 chest radiograph. TECHNIQUE: Frontal view of the chest was obtained. FINDINGS: No significant abnormality is noted involving the heart, lungs, mediastinum, bony thorax or soft tissues. XR/XR chest 1V IMPRESSION: No acute cardiopulmonary process.
--- NOTE | 2022-03-24 12:35 | ED_ITS ---
HPI - General Adult General Chief complaint: Upper Respiratory Symptoms Stated complaint: FLU LIKE SX X'S 1 WK PER EMS Time Seen by Provider: 03/24/22 13:31 Source: patient and EMS Mode of arrival: EMS Limitations: no limitations History of Present Illness HPI narrative: 52-year-old female with history of vertigo, obesity, asthma, hypothyroidism, anemia, environmentally allergies, who presents to the ER for evaluation of flu- like symptoms for the last 6 days. She states she has had intermittent fevers of 101, barking cough, diarrhea, body aches, headache, in generally just not feeling well. She states she has been intermittently trying to go to work but has not been able to. On Thursday she went to work was there for 22 minutes and then passed out at her desk. Ambulance came to her job and she was encouraged to go to the ER but she went home instead. She tried to go back to work yesterday but did not feel well again. She is no longer having any fevers but she has a barking cough and diffuse body aches. She had loose stools this morning. She has decreased p.o. intake and generalized weakness. No known sick contacts. She is vaccinated for both COVID and flu. MD complaint: Flu like symptoms Onset (ago): day(s) (6) Location: head, chest, back, abdomen, left, right, upper extremity and lower extremity Radiation: non-radiation Severity: moderate Quality: aching Pain Consistency: constant Relieving factors: rest Exacerbating factors: movement Associated symptoms: chest pain, cough, fever/chills, headaches, loss of appetite, malaise, syncope and weakness Treatments prior to arrival: none Related Data Home Medications Medication Instructions Recorded Confirmed omalizumab 150 mg/mL subcutaneous 300 mg subcut Q4W 04/09/21 02/18/22 syringe (Xolair) Previous Rx's Medication Instructions Recorded loratadine 10 mg tablet (Allergy 10 mg PO DAILY #90 tabs 01/24/22 Relief (loratadine)) fluticasone propionate 50 2 spray intranasal BID 30 days #16 01/28/22 mcg/actuation nasal grams spray,suspension (Flonase Allergy Relief) ProAir HFA 90 mcg/actuation 2 puff inhalation Q4H #8.5 grams 02/19/22 aerosol inhaler (albuterol sulfate) Symbicort 160 mcg-4.5 2 puff inhalation BID #10.2 grams 02/19/22 mcg/actuation HFA aerosol inhaler (budesonide-formoterol) levothyroxine 150 mcg tablet 150 mcg PO QAM 90 days #90 tabs 02/19/22 prednisone 20 mg tablet 40 mg PO DAILY #10 tabs 03/24/22 Allergies Allergy/AdvReac Type Severity Reaction Status Date / Time NSAIDS (Non-Steroidal Allergy Severe THROAT Verified 02/18/22 10:28 Anti-Inflamma SWELLING [NSAIDS (NON-STEROIDAL ANTI-INFLAMMA] niacin Allergy Intermediate skin Verified 02/18/22 10:28 [Niaspan Extended-Release] blisters tramadol Allergy Intermediate seizures Verified 02/18/22 10:28 barley [BARLEY] Allergy Unknown UNKNOWN Verified 02/18/22 10:28 fluticasone [Advair Diskus] Allergy Unknown unknown Verified 02/18/22 10:28 ibuprofen Allergy Unknown Unknown Verified 02/18/22 10:28 naratriptan Allergy Unknown unknown Verified 02/18/22 10:28 Penicillins [PENICILLINS] Allergy Unknown UNKNWON Verified 02/18/22 10:28 sumatriptan Allergy Unknown unknown Verified 02/18/22 10:28 trazodone [TRAZODONE] Allergy Unknown UNKNOWN Verified 02/18/22 10:28 Review of Systems Review of Systems: Constitutional: + Fever, + Chills ENT/Mouth: + sore throat, + Rhinorrhea, No Swallowing Difficulty Eyes: No Eye Pain, No Swelling, No Redness Cardiovascular: + Chest Pain, +SOB, No Orthopnea, No Edema Respiratory: + Cough, No Sputum, No Wheezing, + dyspnea Gastrointestinal: + Nausea, No Vomiting, + Diarrhea, No abdominal Pain, No Hematochezia, No Melena Genitourinary: No Dysuria, No Urinary Frequency, No Hematuria Musculoskeletal: + joint pain, + Myalgias Skin: No Skin Lesions, No rash Neuro: + Weakness, No Numbness, No Dizziness, + Headache Psych: No Anxiety/Panic, No Depression Heme/Lymph: No Bruising, No Lymphadenopathy Endocrine: No Polyuria, No Polydipsia PMFSH Past Medical History Medical History Anemia Aneurysm Asthma COVID-19 GERD (gastroesophageal reflux disease) Thyroid disease Surgical History H/O brain surgery History of colonoscopy Family History Family History Father Diabetes Arthritis Diverticulitis Leukemia Lung cancer Mental health disorder Mother Arthritis Colon polyps Anemia Brother Crohn's disease Testicular cancer Brother Cancer Paternal Grandfather Leukemia Other Substance use disorder Social History Social History (Updated 02/18/22 @ 10:28 by Zoey Dent 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 Oriented X3. No acute distress. Appears ill Eyes: Pupils equal, round and reactive to light. ENT: Pharynx normal. Nasal congestion Neck: Normal inspection. Neck supple. CVS: Normal heart rate and rhythm. Pulses normal. Respiratory: No respiratory distress. Breath sounds normal. Barking cough with expiratory wheezes throughout the left lung. Abdomen: Soft and nontender. +BS x4 Skin: Skin warm and dry. Normal skin color. Normal skin turgor. No rashes. Extremities: No lower extremity edema. Neuro: Oriented X 3. No motor deficit. No sensory deficit. Steady gait, nonfocal Course Course Course Narrative: 52 yo female with hx asthma, anemia, environmental allergies, hypothyroidism, GERD, constipation, vertigo who presenting to the ER from Urgent Care (had to wait outside due to her symptoms) via EMS c/o not feeling well for 6 days. She states she passed out at work on Thursday. She c/o fever, runny nose, cough, sneezing, diarrhea, sore throat, body aches. Vaccinated for COVID and Flu. VSS, afebrile. Barking cough. Will get CXR and basic labs. EKG due to syncope. Viral PCR ordered. Reevaluation(s) Reevaluation #1: Patient positive for influenza A. Her vital signs are unremarkable. Her EKG is unremarkable with a negative troponin. Chest chest pains when coughing most likely due to costochondritis. Allergic to NSAIDs, will give antitussive agent here. Will give her a nebulizer treatment for some wheezing in the left lung. Will reassess. Anticipate discharge home. Reevaluation #2: Patient feeling slightly better. Up ambulating to the bathroom. Vital signs remained stable. Orthostatic vital signs are negative. Her breath sounds are significantly improved after nebulizer treatment. At this time comfortable discharge home with course of oral prednisone for wheezing in her lungs. Supportive care for flu. She is not a candidate for Tamiflu given duration of symptoms. Complete discharge home. Return precautions were discussed. Stable for DC. Medications Administered Discontinued Medications Generic Name Dose Route Start Last Admin Trade Name Freq PRN Reason Stop Dose Admin Albuterol Sulfate 2.5 mg/ 5 mg 03/24/22 13:55 03/24/22 15:11 Albuterol Sulfate 2.5 mg INHALE 03/24/22 13:56 5 mg ONCE ONE Administration Guaifenesin/Dextromethorphan 10 ml 03/24/22 13:56 03/24/22 14:17 Guaifenesin Dm 200/20/10 Ml 10 Ml Syrup PO 03/24/22 13:57 10 ml ONCE ONE Administration Lactated Ringer's 1,000 mls @ 999 mls/hr 03/24/22 14:00 03/24/22 14:49 Lr IV 03/24/22 15:00 999 mls/hr .Q1H1M MATTHEW Administration Medical Decision Making Lab Data Result diagrams: 03/24/22 12:54 03/24/22 12:54 Labs: Lab Results 03/24/22 03/24/22 03/24/22 Range/Units 12:54 12:54 12:54 WBC 5.3 (4.8-10.8) X10*3/uL RBC 5.33 (4.20-5.50) X10*6/uL Hgb 13.7 (12.0-16.0) g/dl Hct 42.8 (37.0-47.0) % MCV 80.3 (80.0-98.0) fL MCH 25.7 L (27.0-33.0) pg MCHC 32.0 (31.0-35.0) g/dl RDW 14.2 (11.0-16.0) % Plt Count 206 (160-400) X10*3/uL MPV 10.7 (9.4-12.3) fL Immature Gran % (Auto) 0.2 (0.0-0.4) % Neut % (Auto) 50.9 (45-73) % Lymph % (Auto) 38.0 (20-40) % Talbot % (Auto) 6.0 (2-11) % Eos % (Auto) 4.3 H (0-4) % Baso % (Auto) 0.6 (0-2) % Lymph # (Auto) 2.0 (1.2-4.9) X10*3/uL Talbot # (Auto) 0.3 (0.1-1.2) X10*3/uL Eos # (Auto) 0.2 (0.0-0.4) X10*3/uL Baso # (Auto) 0.0 (0.0-0.2) X10*3/uL Abs Immat Gran (auto) 0.01 (0.00-0.03) X10*3/uL Absolute Neuts (auto) 2.7 (2.0-8.3) x10*3/uL Absolute Nucleated RBC 0.000 (0.0-0.012) X10*3/uL Nucleated RBC % (auto) 0.0 (0.0-0.2) /100WBC Sodium 142 (135-145) mmol/L Potassium 4.2 (3.3-5.1) mmol/L Chloride 106 (96-108) mmol/L Carbon Dioxide 26 (22-29) mmol/L Anion Gap 14 (12-20) BUN 10 (9-16) mg/dL Creatinine 0.68 (0.5-1.4) mg/dL Estim Creat Clear Calc 114.5 Estimated GFR > 60 Random Glucose 90 (60-115) mg/dL Calcium 9.4 (8.4-10.2) mg/dL Magnesium 2.3 (1.6-2.6) mg/dL Total Bilirubin 0.2 (0.0-1.0) mg/dL Direct Bilirubin < 0.2 (0.0-0.5) mg/dL AST 15 (5-31) U/L ALT 16 (0-31) U/L Alkaline Phosphatase 104 (39-117) U/L Troponin I High Sens (<3.5-17.0) ng/L Total Protein 6.6 (6.5-8.0) g/dL Albumin 4.2 (3.5-5.0) g/dL Influenza Type A (PCR) POSITIVE A (Negative) Influenza Type B (PCR) NEGATIVE (Negative) RSV RNA Qual (PCR) NEGATIVE (Negative) SARS-CoV-2 RNA (RT-PCR) NEGATIVE (Negative) 03/24/22 Range/Units 12:54 WBC (4.8-10.8) X10*3/uL RBC (4.20-5.50) X10*6/uL Hgb (12.0-16.0) g/dl Hct (37.0-47.0) % MCV (80.0-98.0) fL MCH (27.0-33.0) pg MCHC (31.0-35.0) g/dl RDW (11.0-16.0) % Plt Count (160-400) X10*3/uL MPV (9.4-12.3) fL Immature Gran % (Auto) (0.0-0.4) % Neut % (Auto) (45-73) % Lymph % (Auto) (20-40) % Talbot % (Auto) (2-11) % Eos % (Auto) (0-4) % Baso % (Auto) (0-2) % Lymph # (Auto) (1.2-4.9) X10*3/uL Talbot # (Auto) (0.1-1.2) X10*3/uL Eos # (Auto) (0.0-0.4) X10*3/uL Baso # (Auto) (0.0-0.2) X10*3/uL Abs Immat Gran (auto) (0.00-0.03) X10*3/uL Absolute Neuts (auto) (2.0-8.3) x10*3/uL Absolute Nucleated RBC (0.0-0.012) X10*3/uL Nucleated RBC % (auto) (0.0-0.2) /100WBC Sodium (135-145) mmol/L Potassium (3.3-5.1) mmol/L Chloride (96-108) mmol/L Carbon Dioxide (22-29) mmol/L Anion Gap (12-20) BUN (9-16) mg/dL Creatinine (0.5-1.4) mg/dL Estim Creat Clear Calc Estimated GFR Random Glucose (60-115) mg/dL Calcium (8.4-10.2) mg/dL Magnesium (1.6-2.6) mg/dL Total Bilirubin (0.0-1.0) mg/dL Direct Bilirubin (0.0-0.5) mg/dL AST (5-31) U/L ALT (0-31) U/L Alkaline Phosphatase (39-117) U/L Troponin I High Sens < 3.5 (<3.5-17.0) ng/L Total Protein (6.5-8.0) g/dL Albumin (3.5-5.0) g/dL Influenza Type A (PCR) (Negative) Influenza Type B (PCR) (Negative) RSV RNA Qual (PCR) (Negative) SARS-CoV-2 RNA (RT-PCR) (Negative) ECG Data Attestation: I personally reviewed and interpreted this ECG as follows: Prior ECG tracings: available for review Interpretation: Normal sinus rhythm, ventricular rate 63 beats per minute, normal CT interval, normal QTC, no ST segment elevations or depressions, T-wave inversions in lead 3 and V1 only. Discharge Plan Discharge Clinical Impression: Influenza A Patient Disposition: Home, Self-Care Instructions: Influenza (ED) Additional Instructions: You tested positive for Influenza A. Your chest x-ray was normal. Your EKG was unremarkable. Your lab workup was normal. Rest. Drink plenty of fluids. Take the prescribed steroids for your lungs. Use your inhalers - recommend PRN albuterol every 4-6 hours while you are not feeling well. Do not go out in public while you are not feeling well. Take over the counter cold/flu medications as needed for your symptoms. Recommend Mucinex 1200 mg two times per day for 3-4 days. Take Tylenol and/or Motrin as needed for fevers and body aches. Follow up with your doctor this week. If you develop new or worsening symptoms call 911 or come back to the ER for further evaluation. Prescriptions: New prednisone 20 mg tablet 40 mg PO DAILY Qty: 10 0RF No Action loratadine [Allergy Relief (loratadine)] 10 mg tablet 10 mg PO DAILY Qty: 90 0RF fluticasone propionate [Flonase Allergy Relief] 50 mcg/actuation spray,suspen bill 2 spray intranasal BID 30 Days Qty: 16 3RF Rx Instructions: administer into each nostril albuterol sulfate [ProAir HFA] 90 mcg/actuation HFA aerosol inhaler 2 puff inhalation Q4H Qty: 8.5 0RF budesonide-formoterol [Symbicort] 160-4.5 mcg/actuation HFA aerosol inhaler 2 puff inhalation BID Qty: 10.2 6RF levothyroxine 150 mcg tablet 150 mcg PO QAM 90 Days Qty: 90 3RF Xolair 150 mg/mL Syringe 300 mg SUBCUT Q4W Stand Alone Forms: Work/School Release
[2022-03-24 12:36] VITALS: BP 151/87; PULSE 62; RESP 16; TEMP 36; O2SAT 99; BMI 36.6
--- NOTE | 2022-03-24 12:39 | ECG_ITS ---
Test Reason : COUGH Blood Pressure : / mmHG Vent. Rate : 063 BPM Atrial Rate : 063 BPM P-R Int : 162 ms QRS Dur : 084 ms QT Int : 416 ms P-R-T Axes : 033 -07 014 degrees QTc Int : 425 ms Normal sinus rhythm Normal ECG When compared with ECG of 09-APR-2021 14:23, No significant change was found Referred By: Kacie Andino Electronically Signed By:JOANN BOWER MD
[2022-03-24 13:00] LABS: MANUAL DIFF FLAG NO
[2022-03-24 13:04] LABS: Basophils Percent Auto 0.6 % (0-2); Eosinophils Absolute Auto 0.2 X10*3/uL (0.0-0.4); Eosinophils Percent Auto 4.3 % (0-4); Hematocrit 42.8 % (37.0-47.0); Hemoglobin 13.7 g/dl (12.0-16.0); Imm Gran Abs Auto 0.01 X10*3/uL (0.00-0.03); Imm Gran Pct Auto 0.2 % (0.0-0.4); Mean Corpuscular Hemoglobin 25.7 pg (27.0-33.0); Mean Corpuscular Volume 80.3 fL (80.0-98.0); Mean Platelet Volume 10.7 fL (9.4-12.3); Monocytes Absolute Auto 0.3 X10*3/uL (0.1-1.2); Neutrophils Absolute Auto 2.7 x10*3/uL (2.0-8.3); Neutrophils Percent Auto 50.9 % (45-73); Platelet Count 206 X10*3/uL (160-400); Red Blood Count 5.33 X10*6/uL (4.20-5.50); Red Cell Distribution Width 14.2 % (11.0-16.0); White Blood Count 5.3 X10*3/uL (4.8-10.8)
[2022-03-24 13:24] LABS: Alanine Aminotransferase 16 U/L (0-31); Albumin Level 4.2 g/dL (3.5-5.0); Alkaline Phosphatase 104 U/L (39-117); Anion Gap 14 (12-20); Aspartate Amino Transferase 15 U/L (5-31); Bilirubin Direct < 0.2 mg/dL (0.0-0.5); Bilirubin Total 0.2 mg/dL (0.0-1.0); Blood Urea Nitrogen 10 mg/dL (9-16); Calcium 9.4 mg/dL (8.4-10.2); Carbon Dioxide 26 mmol/L (22-29); Chloride 106 mmol/L (96-108); Creatinine Clr Calc Pharmacy 114.5; Estimated Glomerular Filt Rate > 60; Glucose Random 90 mg/dL (60-115); Magnesium 2.3 mg/dL (1.6-2.6); Potassium 4.2 mmol/L (3.3-5.1); Sodium 142 mmol/L (135-145); Total Protein 6.6 g/dL (6.5-8.0)
[2022-03-24 13:30] LABS: Troponin-I High Sensitivity < 3.5 ng/L (<3.5-17.0)
[2022-03-24 13:45] LABS: Influenza A PCR POSITIVE (Negative); Influenza B PCR NEGATIVE (Negative); Resp Syncy Virus RNA Qual PCR NEGATIVE (Negative); SARS COV2 PCR INHOUSE NEGATIVE (Negative)
[2022-03-24] MEDS: guaiFENesin DM 200/20/10 ML 10 ML SYRUP PO (14:17)
[2022-03-24 14:21] VITALS: BP 155/90; PULSE 57
[2022-03-24] MEDS: Lactated Ringers 1,000 ML 999 ML IV (14:49)
[2022-03-24] MEDS: Albuterol Sulfate 2.5 MG, Albuterol Sulfate (0.083%) 2.5 MG 5 MG INHALE (15:11)
[2022-03-24 15:13] VITALS: PULSE 84; O2SAT 96
[2022-03-24] MEDS: predniSONE 10 MG TABLET 50 MG PO (17:00)
== END 2022-03-24 17:07 | disposition home or self-care (01) ==
PROVIDERS: Physician Assistant; Emergency Provider Emergency Medicine
DX: J11.1 Influenza due to unidentified influenza virus with other respiratory manifestations (principal); R50.9 Fever, unspecified; Z20.822 Contact with and (suspected) exposure to COVID-19; Z87.891 Personal history of nicotine dependence
CPT/HCPCS: 0241U; 36415; 71045; 80048; 80076; 83735; 84484; 85025; 93005; 94640; 96360; 96361; 99284

== ENCOUNTER → 2022-04-16 11:13 | Outpatient (BNVA) | payer OTHER, SELFPAY | PROVIDERS: PCP Internal Medicine; Visit Provider Nurse Practitioner | DX: K21.9 Gastro-esophageal reflux disease without esophagitis (principal); K64.9 Unspecified hemorrhoids; K59.04 Chronic idiopathic constipation; D50.9 Iron deficiency anemia, unspecified; E66.01 Morbid (severe) obesity due to excess calories; Z68.36 Body mass index [BMI] 36.0-36.9, adult; Z79.899 Other long term (current) drug therapy | CPT/HCPCS: 99212 ==

== ENCOUNTER 2022-04-17 11:21 | Outpatient (REF) | payer OTHER, SELFPAY | END 2022-04-17 11:22 | disposition home or self-care (01) | LOC: HO.MDS 11:21 | PROVIDERS: Visit Provider Internal Medicine Pulmonary Disease | DX: J45.50 Severe persistent asthma, uncomplicated (principal) | CPT/HCPCS: 96372; J2357 ==

== ENCOUNTER 2022-04-24 10:51 | Emergency (ER) | payer OTHER, SELFPAY ==
--- NOTE | ~2022-04-24 | XR_ITS ---
EXAMINATION: XR CHEST CLINICAL INFORMATION: Cough. COMPARISON: Chest 04/09/2021 TECHNIQUE: 2 views of the chest were obtained. FINDINGS: The lungs are well-expanded patchy opacity seen in the right midlung suggestive of developing infiltrate. Rest of the lungs are clear. The heart size and pulmonary vascularity is normal. No gross bony abnormality seen. XR/XR chest 2V IMPRESSION: Patchy opacity right midlung suggestive of developing infiltrate.
[2022-04-24 11:05] VITALS: BP 117/83; BP 129/73; PULSE 85; PULSE 86; RESP 18; TEMP 36.6; O2SAT 95; O2SAT 96; BMI 36.6
--- NOTE | 2022-04-24 11:22 | ED_ITS ---
HPI - URI/Sore Throat General Chief Complaint: Upper Respiratory Symptoms <Yanira Snyder NP - Last Filed: 04/24/22 11:26> Stated Complaint: FLU LIKE SX W/CP PER EMS <Yanira Snyder NP - Last Filed: 04/24/22 11:26> Time Seen by Provider: 04/24/22 13:25 <Yanira Snyder NP - Last Filed: 04/24/22 11:26> Source: patient <DAVID Montilla - Last Filed: 04/24/22 15:46> Mode of arrival: ambulatory <DAVID Montilla - Last Filed: 04/24/22 15:46> History of Present Illness HPI Narrative: 52-year-old female with a past medical history of anemia, aneurysm, asthma, GERD, influenza 03/24/22, presenting to the ED complaining of persistent cough since influenza diagnosis, SOB, congestion, chills, and chest discomfort when coughing. Admits finished course of azithromycin for bronchitis and multiple courses of prednisone without relief last month. Denies known fever, travel, sick contacts, abdominal pain, nausea/vomiting, pedal edema, history of clots <DAVID Montilla - Last Filed: 04/24/22 15:46> MD elicited complaint: rhinorrhea and nasal congestion <DAVID Montilla - Last Filed: 04/24/22 15:46> Pertinent past history: asthma <DAVID Montilla - Last Filed: 04/24/22 15:46> Onset (ago): week(s) <DAVID Montilla Last Filed: 04/24/22 15:46> Related Data Home Medications: Home Medications Medication Instructions Recorded Confirmed omalizumab 150 mg/mL subcutaneous 300 mg subcut Q4W 04/09/21 03/31/22 syringe (Xolair) divalproex 250 mg tablet,extended 250 mg PO DAILY 04/16/22 release 24 hr montelukast 10 mg tablet 10 mg PO DAILY 04/16/22 Previous Rx's Medication Instructions Recorded loratadine 10 mg tablet (Allergy 10 mg PO DAILY #90 tabs 01/24/22 Relief (loratadine)) fluticasone propionate 50 2 spray intranasal BID 30 days #16 01/28/22 mcg/actuation nasal grams spray,suspension (Flonase Allergy Relief) ProAir HFA 90 mcg/actuation 2 puff inhalation Q4H #8.5 grams 02/19/22 aerosol inhaler (albuterol sulfate) Symbicort 160 mcg-4.5 2 puff inhalation BID #10.2 grams 02/19/22 mcg/actuation HFA aerosol inhaler (budesonide-formoterol) levothyroxine 150 mcg tablet 150 mcg PO QAM 90 days #90 tabs 02/19/22 prednisone 20 mg tablet 40 mg PO DAILY #10 tabs 03/24/22 azithromycin 250 mg tablet 250 mg PO ONCE 5 days #6 tabs 03/31/22 dexlansoprazole 60 mg 60 mg PO DAILY 30 days #30 caps 04/09/22 capsule,biphase delayed release (Dexilant) bisacodyl 5 mg tablet,delayed 10 mg PO BEDTIME 2 days #4 tabs 04/16/22 release (Dulcolax (bisacodyl)) famotidine 40 mg tablet 40 mg PO BEDTIME acid reflux #60 04/16/22 tabs lubiprostone 8 mcg capsule 8 mcg PO BID #60 caps 04/16/22 (Amitiza) benzonatate 100 mg capsule 100 mg PO TID PRN cough #14 caps 04/24/22 cefpodoxime 200 mg tablet 200 mg PO BID 7 days #14 tabs 04/24/22 doxycycline hyclate 100 mg tablet 100 mg PO BID 7 days #14 tabs 04/24/22 hydrocodone-homatropine 5 mg-1.5 5 ml PO Q4-6H PRN cough #100 mL 04/24/22 mg/5 mL (5 mL) oral syrup (Hycodan) <Yanira Snyder, GRADUATE RN - Last Filed: 04/24/22 11:26> Allergies/Adverse Reactions: Allergies Allergy/AdvReac Type Severity Reaction Status Date / Time NSAIDS (Non-Steroidal Allergy Severe THROAT Verified 04/16/22 11:23 Anti-Inflamma SWELLING [NSAIDS (NON-STEROIDAL ANTI-INFLAMMA] niacin Allergy Intermediate skin Verified 04/16/22 11:23 [Niaspan Extended-Release] blisters tramadol Allergy Intermediate seizures Verified 04/16/22 11:23 barley [BARLEY] Allergy Unknown UNKNOWN Verified 04/16/22 11:23 fluticasone [Advair Diskus] Allergy Unknown unknown Verified 04/16/22 11:23 ibuprofen Allergy Unknown Unknown Verified 04/16/22 11:23 naratriptan Allergy Unknown unknown Verified 04/16/22 11:23 Penicillins [PENICILLINS] Allergy Unknown UNKNWON Verified 04/16/22 11:23 sumatriptan Allergy Unknown unknown Verified 04/16/22 11:23 trazodone [TRAZODONE] Allergy Unknown UNKNOWN Verified 04/16/22 11:23 <Yanira Snyder NP - Last Filed: 04/24/22 11:26> Review of Systems Review of Systems: Constitutional: No Fever, + Chills, + Fatigue, + Malaise ENT/Mouth: No Hearing loss, No Ear Pain, + Nasal Congestion, No Sinus Pain, No Hoarseness, No sore throat, + Rhinorrhea, No Swallowing Difficulty Eyes: No Eye Pain, No Swelling, No Redness, No Vision Changes Cardiovascular: + Chest Pain when coughing, + SOB, No Dyspnea on Exertion, No Orthopnea, No Edema, No Palpitations Respiratory: + Cough, No Sputum, No Wheezing, No Smoke Exposure, + Dyspnea Gastrointestinal: No Nausea, No Vomiting, No Diarrhea, No Constipation, No Abdominal pain Genitourinary: No Dysuria, No Urinary Frequency, No Hematuria, No Flank Pain, No Urinary Flow Changes, No Hesitancy Musculoskeletal: No joint pain, + Myalgias, No Joint Swelling Skin: No Skin Lesions, No rash Neuro: No Weakness, No Numbness, No Dizziness, No Headache <DAVID Montilla - Last Filed: 04/24/22 15:46> Yes all other systems are reviewed and are negative <DAVID Montilla - Last Filed: 04/24/22 15:46> Constitutional: Constitutional: Reports as per HPI <DAVID Montilla - Last Filed: 04/24/22 15:46> PMFSH Past Medical History Attestation statement: The following information was validated with the patient. <DAVID Montilla Last Filed: 04/24/22 15:46> Medical History: Medical History Anemia Aneurysm Asthma COVID-19 GERD (gastroesophageal reflux disease) Thyroid disease <Yanira Snyder NP - Last Filed: 04/24/22 11:26> Surgical History: Surgical History H/O brain surgery History of colonoscopy <Yanira Snyder NP - Last Filed: 04/24/22 11:26> Family History Family History: Family History Father Diabetes Arthritis Diverticulitis Leukemia Lung cancer Mental health disorder Mother Arthritis Colon polyps Anemia Brother Crohn's disease Testicular cancer Brother Cancer Paternal Grandfather Leukemia Other Substance use disorder <Yanira Snyder NP - Last Filed: 04/24/22 11:26> Social History Social History: Social History Household Members: Significant Other Housing: House Are you a primary direct support professional caregiver to a significant other at home: No Do you presently have visiting nurse or other home services: No Alcohol intake: never Patient Tobacco Use Status: Former Tobacco user Tobacco use type: Cigarette e-Cigarette/Vaping Use: Never Used Advance Directives: Yes Advance Directives on File: Yes Advance Directives Date on File: 04/09/21 service: No 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al status: employed and disabled 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 Cognitive needs: No Hearing needs: No Vision needs: Yes <Yanira Snyder NP - Last Filed: 04/24/22 11:26> Physical Exam Vital Signs: Vital Signs: Last Vital Signs Temp 98 F 04/24/22 11:05 Pulse 76 04/24/22 15:05 Resp 16 04/24/22 15:05 BP 129/73 04/24/22 11:05 Pulse Ox 96 04/24/22 11:05 O2 Del Method 04/24/22 11:05 BMI result Body Mass Index 36.6 <Yanira Snyder NP - Last Filed: 04/24/22 11:26> Vital Signs: Last Vital Signs Temp 98 F 04/24/22 11:05 Pulse 76 04/24/22 15:05 Resp 16 04/24/22 15:05 BP 129/73 04/24/22 11:05 Pulse Ox 96 04/24/22 11:05 O2 Del Method 04/24/22 11:05 BMI result Body Mass Index 36.6 <DAVID Montilla - Last Filed: 04/24/22 15:46> Const: General: cooperative and no acute distress <Vianey Live PA - Last Filed: 04/24/22 15:46> Nutritional Appearance: overweight <Vianey Live PA - Last Filed: 04/24/22 15:46> Orientation/consciousness: patient oriented x3 <Vianey Live PA - Last Filed: 04/24/22 15:46> Limitations: no limitations <Vianey Live PA - Last Filed: 04/24/22 15:46> HEENT: Head: Yes normal to inspection and Yes atraumatic <Vianey Live PA - Last Filed: 04/24/22 15:46> Ears: hearing grossly normal bilaterally <Vianey Live PA - Last Filed: 04/24/22 15:46> General nose exam: Normal external nose present <Vianey Live PA - Last Filed: 04/24/22 15:46> Face and sinus: Yes normal facial exam <Vianey Live PA - Last Filed: 04/24/22 15:46> Throat: Yes posterior oropharynx normal, Yes tonsils normal and Yes uvula midline <Vianey Live PA - Last Filed: 04/24/22 15:46> Eyes: General: appearance normal, both eyes and all related structures <Vianey Live PA - Last Filed: 04/24/22 15:46> EOM: EOMs intact bilaterally <Vianey Live PA - Last Filed: 04/24/22 15:46> Neck: Neck: Yes normal visual inspection and Yes no meningeal signs <Vianey Live PA - Last Filed: 04/24/22 15:46> Resp: Effort & Inspection: normal respiratory effort, Actively coughing Quality: dry and no respiratory distress <Vianey Live PA - Last Filed: 04/24/22 15:46> Auscultation: clear to auscultation bilaterally, no crackles, no rales and no rhonchi <Vianey Pouliot, PA - Last Filed: 04/24/22 15:46> Cardio: Rate: regular rate <Vianey Pouliot, PA - Last Filed: 04/24/22 15:46> Heart sounds: S1 normal heart sound present and S2 normal heart sound present <Vianey Pouliot, PA - Last Filed: 04/24/22 15:46> GI: Inspection: Yes normal to inspection <Vianey Pouliot, PA - Last Filed: 04/24/22 15:46> Palpation (GI): Soft to palpation, nontender, no guarding and not rigid <Vianey Pouliot, PA - Last Filed: 04/24/22 15:46> Skin: Rashes: no rashes <Vianey Pouliot, PA - Last Filed: 04/24/22 15:46> Wounds: no wounds <Vianey Pouliot, PA - Last Filed: 04/24/22 15:46> Neuro: General: patient oriented x3, tone normal and no meningeal signs <Vianey Pouliot, PA - Last Filed: 04/24/22 15:46> Gait exam (Neuro): Normal gait present <Vianey Pouliot, PA - Last Filed: 04/24/22 15:46> Extrem: General: Yes normal to inspection, Yes no pedal edema and Yes no calf tenderness <Vianey Pouliot, PA - Last Filed: 04/24/22 15:46> Course Course Course Narrative: This is a rapid medical exam. Deferred additional HPI, ROS, PE to primary provider. 52 yo female with PMH of GERD, anemia, hypothyroidism, fibromyalgia, aneurysm s/p coiling here with complaints of 1 month of FISHER, chest pain, weakness, cough, chills, nausea after recovering from influenza per patient. VSS. Will check viral testing, CXR, EKG. <Yanira Snyder NP - Last Filed: 04/24/22 11:26> This is a rapid medical exam. Deferred additional HPI, ROS, PE to primary provider. 52 yo female with PMH of GERD, anemia, hypothyroidism, fibromyalgia, aneurysm s/p coiling here with complaints of 1 month of FISHER, chest pain, weakness, cough, chills, nausea after recovering from influenza per patient. V SS. Will check viral testing, CXR, EKG. -COVID-19/influenza/RSV negative XR chest 2V IMPRESSION: Patchy opacity right midlung suggestive of developing infiltrate.? >> will obtain labs including lactic/blood cultures and patient given dose of IV Rocephin in the ED. -no leukocytosis. Labs otherwise reassuring. Troponin WNL -urine contaminated with RBCs Due to patient recently being on multiple courses of prednisone will avoid at this time. CURB-65=0 Results discussed with patient including worrisome signs and symptoms and strict return precautions, and when to return to the emergency department. They verbalized understanding and feel safe for discharge at this time. <DAVID Montilla - Last Filed: 04/24/22 15:46> Medications Administered Discontinued Medications Generic Name Dose Route Start Last Admin Trade Name Freq PRN Reason Stop Dose Admin Acetaminophen 650 mg 04/24/22 14:35 04/24/22 15:23 Acetaminophen 325 Mg Tablet PO 04/24/22 14:36 650 mg ONCE ONE Administration Albuterol/Ipratropium 3 ml 04/24/22 14:35 04/24/22 15:03 Albuterol/Iprat 2.5/0.5mg 3 Ml Ampul.Neb INHALE 04/24/22 14:36 3 ml ONCE ONE Administration Benzonatate 100 mg 04/24/22 14:35 04/24/22 15:23 Benzonatate 100 Mg Capsule PO 04/24/22 14:36 100 mg ONCE ONE Administration Hydrocodone Bit/Homatropine Methylb 5 ml 04/24/22 14:35 04/24/22 15:23 Hydrocodone/Homat 5/1.5/5 Ml 5 Ml Syrup PO 04/24/22 14:36 5 ml ONCE ONE Administration Ceftriaxone Sodium 1 gm/ 50 mls @ 100 mls/hr 04/24/22 14:19 04/24/22 14:38 Sodium Chloride IV 04/24/22 14:48 100 mls/hr ONCE ONE Administration <Yanira Snyder NP - Last Filed: 04/24/22 11:26> Medications Administered Discontinued Medications Generic Name Dose Route Start Last Admin Trade Name Freq PRN Reason Stop Dose Admin Acetaminophen 650 mg 04/24/22 14:35 04/24/22 15:23 Acetaminophen 325 Mg Tablet PO 04/24/22 14:36 650 mg ONCE ONE Administration Albuterol/Ipratropium 3 ml 04/24/22 14:35 04/24/22 15:03 Albuterol/Iprat 2.5/0.5mg 3 Ml Ampul.Neb INHALE 04/24/22 14:36 3 ml ONCE ONE Administration Benzonatate 100 mg 04/24/22 14:35 04/24/22 15:23 Benzonatate 100 Mg Capsule PO 04/24/22 14:36 100 mg ONCE ONE Administration Hydrocodone Bit/Homatropine Methylb 5 ml 04/24/22 14:35 04/24/22 15:23 Hydrocodone/Homat 5/1.5/5 Ml 5 Ml Syrup PO 04/24/22 14:36 5 ml ONCE ONE Administration Ceftriaxone Sodium 1 gm/ 50 mls @ 100 mls/hr 04/24/22 14:19 04/24/22 14:38 Sodium Chloride IV 04/24/22 14:48 100 mls/hr ONCE ONE Administration <DAVID Montilla - Last Filed: 04/24/22 15:46> Medical Decision Making Medical Decision Making MDM Narrative: 52-year-old female with a past medical history of anemia, aneurysm, asthma, GERD, influenza 03/24/22, presenting to the ED complaining of persistent cough since influenza diagnosis, SOB, congestion, chills, and chest discomfort when coughing. On exam vital signs stable, NAD, nontoxic appearing, actively coughing during exam, lungs CTA, no pedal edema/calf tenderness. Concern for pneumonia vs bronchitis vs viral syndrome. Low suspicion for ACS/PE/CHF or DVT Plan: EKG, labs, CXR, COVID 19/influenza/RSV testing, symptomatic remedies, re- evaluate Please refer to course for remaining clinical decision making, interpretation of labs/imaging results, and discussions with consultants and/or family members. <DAVID Montilla - Last Filed: 04/24/22 15:46> Differential Diagnosis Differential Diagnoses: The differential diagnosis associated with the presentation includes <DAVID Montilla Last Filed: 04/24/22 15:46> as above <DAVID Montilla - Last Filed: 04/24/22 15:46> Admission/Observation Consideration of admission/observation: Escalation of care including admission/observation considered <DAVID Montilla - Last Filed: 04/24/22 15:46> Lab Data MDM Lab Attestation statement: I reviewed the patient's lab results. <DAVID Montilla - Last Filed: 04/24/22 15:46> Result Diagrams: : 04/24/22 14:06 04/24/22 14:06 <Yanira Snyder NP - Last Filed: 04/24/22 11:26> Labs: Lab Results 04/24/22 04/24/22 04/24/22 Range/Units 11:34 14:06 14:06 WBC 5.6 (4.8-10.8) X10*3/uL RBC 4.94 (4.20-5.50) X10*6/uL Hgb 12.8 (12.0-16.0) g/dl Hct 40.0 (37.0-47.0) % MCV 81.0 (80.0-98.0) fL MCH 25.9 L (27.0-33.0) pg MCHC 32.0 (31.0-35.0) g/dl RDW 15.1 (11.0-16.0) % Plt Count 196 (160-400) X10*3/uL MPV 10.6 (9.4-12.3) fL Immature Gran % (Auto) 0.2 (0.0-0.4) % Neut % (Auto) 62.0 (45-73) % Lymph % (Auto) 25.9 (20-40) % Moca % (Auto) 9.9 (2-11) % Eos % (Auto) 1.6 (0-4) % Baso % (Auto) 0.4 (0-2) % Lymph # (Auto) 1.4 (1.2-4.9) X10*3/uL Moca # (Auto) 0.6 (0.1-1.2) X10*3/uL Eos # (Auto) 0.1 (0.0-0.4) X10*3/uL Baso # (Auto) 0.0 (0.0-0.2) X10*3/uL Abs Immat Gran (auto) 0.01 (0.00-0.03) X10*3/uL Absolute Neuts (auto) 3.5 (2.0-8.3) x10*3/uL Absolute Nucleated RBC 0.000 (0.0-0.012) X10*3/uL Nucleated RBC % (auto) 0.0 (0.0-0.2) /100WBC Sodium 137 (135-145) mmol/L Potassium 3.9 (3.3-5.1) mmol/L Chloride 108 (96-108) mmol/L Carbon Dioxide 20 L (22-29) mmol/L Anion Gap 13 (12-20) BUN 10 (9-16) mg/dL Creatinine 0.73 (0.5-1.4) mg/dL Estim Creat Clear Calc 106.7 Estimated GFR > 60 Random Glucose 92 (60-115) mg/dL Lactic Acid (0.5-2.0) mmol/L Calcium 8.7 D (8.4-10.2) mg/dL Magnesium 2.0 (1.6-2.6) mg/dL Total Bilirubin 0.3 (0.0-1.0) mg/dL Direct Bilirubin < 0.2 (0.0-0.5) mg/dL AST 13 (5-31) U/L ALT 9 (0-31) U/L Alkaline Phosphatase 100 (39-117) U/L Troponin I High Sens (<3.5-17.0) ng/L B-Natriuretic Peptide (<100) pg/mL Total Protein 6.1 L (6.5-8.0) g/dL Albumin 4.0 (3.5-5.0) g/dL Urine Color Urine Appearance Urine pH (5.0-9.0) Ur Specific Selmer (1.005-1.025) Urine Protein (Neg-Trace) mg/dL Urine Glucose (UA) (Negative) mg/dL Urine Ketones (Negative) mg/dL Urine Blood (Negative) Urine Nitrite (Negative) Ur Leukocyte Esterase (Negative) Urine RBC (0-2) /HPF Urine WBC (0-5) /HPF Ur Squamous Epith Cells (0-2) /HPF Urine Bacteria (None Seen) Hyaline Casts (0-2) /LPF Influenza Type A (PCR) NEGATIVE (Negative) Influenza Type B (PCR) NEGATIVE (Negative) RSV RNA Qual (PCR) NEGATIVE (Negative) SARS-CoV-2 RNA (RT-PCR) NEGATIVE (Negative) 04/24/22 04/24/22 04/24/22 Range/Units 14:06 14:06 14:06 WBC (4.8-10.8) X10*3/uL RBC (4.20-5.50) X10*6/uL Hgb (12.0-16.0) g/dl Hct (37.0-47.0) % MCV (80.0-98.0) fL MCH (27.0-33.0) pg MCHC (31.0-35.0) g/dl RDW (11.0-16.0) % Plt Count (160-400) X10*3/uL MPV (9.4-12.3) fL Immature Gran % (Auto) (0.0-0.4) % Neut % (Auto) (45-73) % Lymph % (Auto) (20-40) % Moca % (Auto) (2-11) % Eos % (Auto) (0-4) % Baso % (Auto) (0-2) % Lymph # (Auto) (1.2-4.9) X10*3/uL Moca # (Auto) (0.1-1.2) X10*3/uL Eos # (Auto) (0.0-0.4) X10*3/uL Baso # (Auto) (0.0-0.2) X10*3/uL Abs Immat Gran (auto) (0.00-0.03) X10*3/uL Absolute Neuts (auto) (2.0-8.3) x10*3/uL Absolute Nucleated RBC (0.0-0.012) X10*3/uL Nucleated RBC % (auto) (0.0-0.2) /100WBC Sodium (135-145) mmol/L Potassium (3.3-5.1) mmol/L Chloride (96-108) mmol/L Carbon Dioxide (22-29) mmol/L Anion Gap (12-20) BUN (9-16) mg/dL Creatinine (0.5-1.4) mg/dL Estim Creat Clear Calc Estimated GFR Random Glucose (60-115) mg/dL Lactic Acid 0.8 (0.5-2.0) mmol/L Calcium (8.4-10.2) mg/dL Magnesium (1.6-2.6) mg/dL Total Bilirubin (0.0-1.0) mg/dL Direct Bilirubin (0.0-0.5) mg/dL AST (5-31) U/L ALT (0-31) U/L Alkaline Phosphatase (39-117) U/L Troponin I High Sens < 3.5 (<3.5-17.0) ng/L B-Natriuretic Peptide < 10 (<100) pg/mL Total Protein (6.5-8.0) g/dL Albumin (3.5-5.0) g/dL Urine Color Urine Appearance Urine pH (5.0-9.0) Ur Specific Selmer (1.005-1.025) Urine Protein (Neg-Trace) mg/dL Urine Glucose (UA) (Negative) mg/dL Urine Ketones (Negative) mg/dL Urine Blood (Negative) Urine Nitrite (Negative) Ur Leukocyte Esterase (Negative) Urine RBC (0-2) /HPF Urine WBC (0-5) /HPF Ur Squamous Epith Cells (0-2) /HPF Urine Bacteria (None Seen) Hyaline Casts (0-2) /LPF Influenza Type A (PCR) (Negative) Influenza Type B (PCR) (Negative) RSV RNA Qual (PCR) (Negative) SARS-CoV-2 RNA (RT-PCR) (Negative) 04/24/22 Range/Units 14:20 WBC (4.8-10.8) X10*3/uL RBC (4.20-5.50) X10*6/uL Hgb (12.0-16.0) g/dl Hct (37.0-47.0) % MCV (80.0-98.0) fL MCH (27.0-33.0) pg MCHC (31.0-35.0) g/dl RDW (11.0-16.0) % Plt Count (160-400) X10*3/uL MPV (9.4-12.3) fL Immature Gran % (Auto) (0.0-0.4) % Neut % (Auto) (45-73) % Lymph % (Auto) (20-40) % Moca % (Auto) (2-11) % Eos % (Auto) (0-4) % Baso % (Auto) (0-2) % Lymph # (Auto) (1.2-4.9) X10*3/uL Moca # (Auto) (0.1-1.2) X10*3/uL Eos # (Auto) (0.0-0.4) X10*3/uL Baso # (Auto) (0.0-0.2) X10*3/uL Abs Immat Gran (auto) (0.00-0.03) X10*3/uL Absolute Neuts (auto) (2.0-8.3) x10*3/uL Absolute Nucleated RBC (0.0-0.012) X10*3/uL Nucleated RBC % (auto) (0.0-0.2) /100WBC Sodium (135-145) mmol/L Potassium (3.3-5.1) mmol/L Chloride (96-108) mmol/L Carbon Dioxide (22-29) mmol/L Anion Gap (12-20) BUN (9-16) mg/dL Creatinine (0.5-1.4) mg/dL Estim Creat Clear Calc Estimated GFR Random Glucose (60-115) mg/dL Lactic Acid (0.5-2.0) mmol/L Calcium (8.4-10.2) mg/dL Magnesium (1.6-2.6) mg/dL Total Bilirubin (0.0-1.0) mg/dL Direct Bilirubin (0.0-0.5) mg/dL AST (5-31) U/L ALT (0-31) U/L Alkaline Phosphatase (39-117) U/L Troponin I High Sens (<3.5-17.0) ng/L B-Natriuretic Peptide (<100) pg/mL Total Protein (6.5-8.0) g/dL Albumin (3.5-5.0) g/dL Urine Color Yellow Urine Appearance Cloudy Urine pH 6.0 (5.0-9.0) Ur Specific Selmer 1.020 (1.005-1.025) Urine Protein Trace (Neg-Trace) mg/dL Urine Glucose (UA) Negative (Negative) mg/dL Urine Ketones 15 (Negative) mg/dL Urine Blood Small (1+) H (Negative) Urine Nitrite Negative (Negative) Ur Leukocyte Esterase Negative (Negative) Urine RBC 11-20 H (0-2) /HPF Urine WBC 0-5 (0-5) /HPF Ur Squamous Epith Cells 11-20 (0-2) /HPF Urine Bacteria 1+ (None Seen) Hyaline Casts 0-2 (0-2) /LPF Influenza Type A (PCR) (Negative) Influenza Type B (PCR) (Negative) RSV RNA Qual (PCR) (Negative) SARS-CoV-2 RNA (RT-PCR) (Negative) <Yanira Snyder, GRADUATE RN - Last Filed: 04/24/22 11:26> Lab Results 04/24/22 04/24/22 04/24/22 Range/Units 11:34 14:06 14:06 WBC 5.6 (4.8-10.8) X10*3/uL RBC 4.94 (4.20-5.50) X10*6/uL Hgb 12.8 (12.0-16.0) g/dl Hct 40.0 (37.0-47.0) % MCV 81.0 (80.0-98.0) fL MCH 25.9 L (27.0-33.0) pg MCHC 32.0 (31.0-35.0) g/dl RDW 15.1 (11.0-16.0) % Plt Count 196 (160-400) X10*3/uL MPV 10.6 (9.4-12.3) fL Immature Gran % (Auto) 0.2 (0.0-0.4) % Neut % (Auto) 62.0 (45-73) % Lymph % (Auto) 25.9 (20-40) % Moca % (Auto) 9.9 (2-11) % Eos % (Auto) 1.6 (0-4) % Baso % (Auto) 0.4 (0-2) % Lymph # (Auto) 1.4 (1.2-4.9) X10*3/uL Moca # (Auto) 0.6 (0.1-1.2) X10*3/uL Eos # (Auto) 0.1 (0.0-0.4) X10*3/uL Baso # (Auto) 0.0 (0.0-0.2) X10*3/uL Abs Immat Gran (auto) 0.01 (0.00-0.03) X10*3/uL Absolute Neuts (auto) 3.5 (2.0-8.3) x10*3/uL Absolute Nucleated RBC 0.000 (0.0-0.012) X10*3/uL Nucleated RBC % (auto) 0.0 (0.0-0.2) /100WBC Sodium 137 (135-145) mmol/L Potassium 3.9 (3.3-5.1) mmol/L Chloride 108 (96-108) mmol/L Carbon Dioxide 20 L (22-29) mmol/L Anion Gap 13 (12-20) BUN 10 (9-16) mg/dL Creatinine 0.73 (0.5-1.4) mg/dL Estim Creat Clear Calc 106.7 Estimated GFR > 60 Random Glucose 92 (60-115) mg/dL Lactic Acid (0.5-2.0) mmol/L Calcium 8.7 D (8.4-10.2) mg/dL Magnesium 2.0 (1.6-2.6) mg/dL Total Bilirubin 0.3 (0.0-1.0) mg/dL Direct Bilirubin < 0.2 (0.0-0.5) mg/dL AST 13 (5-31) U/L ALT 9 (0-31) U/L Alkaline Phosphatase 100 (39-117) U/L Troponin I High Sens (<3.5-17.0) ng/L B-Natriuretic Peptide (<100) pg/mL Total Protein 6.1 L (6.5-8.0) g/dL Albumin 4.0 (3.5-5.0) g/dL Urine Color Urine Appearance Urine pH (5.0-9.0) Ur Specific [place] (1.005-1.025) Urine Protein (Neg-Trace) mg/dL Urine Glucose (UA) (Negative) mg/dL Urine Ketones (Negative) mg/dL Urine Blood (Negative) Urine Nitrite (Negative) Ur Leukocyte Esterase (Negative) Urine RBC (0-2) /HPF Urine WBC (0-5) /HPF Ur Squamous Epith Cells (0-2) /HPF Urine Bacteria (None Seen) Hyaline Casts (0-2) /LPF Influenza Type A (PCR) NEGATIVE (Negative) Influenza Type B (PCR) NEGATIVE (Negative) RSV RNA Qual (PCR) NEGATIVE (Negative) SARS-CoV-2 RNA (RT-PCR) NEGATIVE (Negative) 04/24/22 04/24/22 04/24/22 Range/Units 14:06 14:06 14:06 WBC (4.8-10.8) X10*3/uL RBC (4.20-5.50) X10*6/uL Hgb (12.0-16.0) g/dl Hct (37.0-47.0) % MCV (80.0-98.0) fL MCH (27.0-33.0) pg MCHC (31.0-35.0) g/dl RDW (11.0-16.0) % Plt Count (160-400) X10*3/uL MPV (9.4-12.3) fL Immature Gran % (Auto) (0.0-0.4) % Neut % (Auto) (45-73) % Lymph % (Auto) (20-40) % Moca % (Auto) (2-11) % Eos % (Auto) (0-4) % Baso % (Auto) (0-2) % Lymph # (Auto) (1.2-4.9) X10*3/uL Moca # (Auto) (0.1-1.2) X10*3/uL Eos # (Auto) (0.0-0.4) X10*3/uL Baso # (Auto) (0.0-0.2) X10*3/uL Abs Immat Gran (auto) (0.00-0.03) X10*3/uL Absolute Neuts (auto) (2.0-8.3) x10*3/uL Absolute Nucleated RBC (0.0-0.012) X10*3/uL Nucleated RBC % (auto) (0.0-0.2) /100WBC Sodium (135-145) mmol/L Potassium (3.3-5.1) mmol/L Chloride (96-108) mmol/L Carbon Dioxide (22-29) mmol/L Anion Gap (12-20) BUN (9-16) mg/dL Creatinine (0.5-1.4) mg/dL Estim Creat Clear Calc Estimated GFR Random Glucose (60-115) mg/dL Lactic Acid 0.8 (0.5-2.0) mmol/L Calcium (8.4-10.2) mg/dL Magnesium (1.6-2.6) mg/dL Total Bilirubin (0.0-1.0) mg/dL Direct Bilirubin (0.0-0.5) mg/dL AST (5-31) U/L ALT (0-31) U/L Alkaline Phosphatase (39-117) U/L Troponin I High Sens < 3.5 (<3.5-17.0) ng/L B-Natriuretic Peptide < 10 (<100) pg/mL Total Protein (6.5-8.0) g/dL Albumin (3.5-5.0) g/dL Urine Color Urine Appearance Urine pH (5.0-9.0) Ur Specific Sel[place] (1.005-1.025) Urine Protein (Neg-Trace) mg/dL Urine Glucose (UA) (Negative) mg/dL Urine Ketones (Negative) mg/dL Urine Blood (Negative) Urine Nitrite (Negative) Ur Leukocyte Esterase (Negative) Urine RBC (0-2) /HPF Urine WBC (0-5) /HPF Ur Squamous Epith Cells (0-2) /HPF Urine Bacteria (None Seen) Hyaline Casts (0-2) /LPF Influenza Type A (PCR) (Negative) Influenza Type B (PCR) (Negative) RSV RNA Qual (PCR) (Negative) SARS-CoV-2 RNA (RT-PCR) (Negative) 04/24/22 Range/Units 14:20 WBC (4.8-10.8) X10*3/uL RBC (4.20-5.50) X10*6/uL Hgb (12.0-16.0) g/dl Hct (37.0-47.0) % MCV (80.0-98.0) fL MCH (27.0-33.0) pg MCHC (31.0-35.0) g/dl RDW (11.0-16.0) % Plt Count (160-400) X10*3/uL MPV (9.4-12.3) fL Immature Gran % (Auto) (0.0-0.4) % Neut % (Auto) (45-73) % Lymph % (Auto) (20-40) % Moca % (Auto) (2-11) % Eos % (Auto) (0-4) % Baso % (Auto) (0-2) % Lymph # (Auto) (1.2-4.9) X10*3/uL Moca # (Auto) (0.1-1.2) X10*3/uL Eos # (Auto) (0.0-0.4) X10*3/uL Baso # (Auto) (0.0-0.2) X10*3/uL Abs Immat Gran (auto) (0.00-0.03) X10*3/uL Absolute Neuts (auto) (2.0-8.3) x10*3/uL Absolute Nucleated RBC (0.0-0.012) X10*3/uL Nucleated RBC % (auto) (0.0-0.2) /100WBC Sodium (135-145) mmol/L Potassium (3.3-5.1) mmol/L Chloride (96-108) mmol/L Carbon Dioxide (22-29) mmol/L Anion Gap (12-20) BUN (9-16) mg/dL Creatinine (0.5-1.4) mg/dL Estim Creat Clear Calc Estimated GFR Random Glucose (60-115) mg/dL Lactic Acid (0.5-2.0) mmol/L Calcium (8.4-10.2) mg/dL Magnesium (1.6-2.6) mg/dL Total Bilirubin (0.0-1.0) mg/dL Direct Bilirubin (0.0-0.5) mg/dL AST (5-31) U/L ALT (0-31) U/L Alkaline Phosphatase (39-117) U/L Troponin I High Sens (<3.5-17.0) ng/L B-Natriuretic Peptide (<100) pg/mL Total Protein (6.5-8.0) g/dL Albumin (3.5-5.0) g/dL Urine Color Yellow Urine Appearance Cloudy Urine pH 6.0 (5.0-9.0) Ur Specific [place] 1.020 (1.005-1.025) Urine Protein Trace (Neg-Trace) mg/dL Urine Glucose (UA) Negative (Negative) mg/dL Urine Ketones 15 (Negative) mg/dL Urine Blood Small (1+) H (Negative) Urine Nitrite Negative (Negative) Ur Leukocyte Esterase Negative (Negative) Urine RBC 11-20 H (0-2) /HPF Urine WBC 0-5 (0-5) /HPF Ur Squamous Epith Cells 11-20 (0-2) /HPF Urine Bacteria 1+ (None Seen) Hyaline Casts 0-2 (0-2) /LPF Influenza Type A (PCR) (Negative) Influenza Type B (PCR) (Negative) RSV RNA Qual (PCR) (Negative) SARS-CoV-2 RNA (RT-PCR) (Negative) <DAVID Montilla - Last Filed: 04/24/22 15:46> Independent Interpretation I performed an independent interpretation of an: EKG and Plain X-Ray <DAVID Montilla - Last Filed: 04/24/22 15:46> Interpretation: My interpretation: EKG normal sinus rhythm at a rate of 82. DC interval 152. QTC 404. No STEMI. Nonischemic. <DAVID Montilla Last Filed: 04/24/22 15:46> Radiology Impression Discussion of test interpretation with radiology: I have reviewed the radiologist's reading. <DAVID Montilla - Last Filed: 04/24/22 15:46> External Record Review External record reviewed: Outpatient record and Prior outpatient labs <DAVID Montilla - Last Filed: 04/24/22 15:46> Discharge Plan Discharge Clinical Impression: Pneumonia <Yanira Snyder NP - Last Filed: 04/24/22 11:26> Patient Disposition: Home, Self-Care <Yanira Snyder NP - Last Filed: 04/24/22 11:26> Instructions: Pneumonia (ED) <Yanira Snyder NP - Last Filed: 04/24/22 11:26> Additional Instructions: You have pneumonia. Cefpodoxime and doxycycline or antibiotics please take as prescribed. Tessalon Perles and Hycodan are for cough, take as needed. Continue to use your inhalers at home Please have close follow-up with her doctor. If symptoms persist or worsen, constant or unremitting symptoms, persistent cough, shortness of breath, chest pain or fever unresolved with medications return to the emergency department Please take Tylenol and Motrin. You tested negative for COVID-19, flu, and RSV today <Yanira Snyder NP - Last Filed: 04/24/22 11:26> Prescriptions: New cefpodoxime 200 mg tablet 200 mg PO BID 7 Days Qty: 14 0RF Rx Instructions: must administer with a meal/food benzonatate 100 mg capsule 100 mg PO TID PRN (Reason: cough) Qty: 14 0RF doxycycline hyclate 100 mg tablet 100 mg PO BID 7 Days Qty: 14 0RF hydrocodone-homatropine [Hycodan] 5-1.5 mg/5 mL (5 mL) syrup 5 ml PO Q4-6H PRN (Reason: cough) Qty: 100 0RF Rx Instructions: Partial Fill upon patient request. No Action loratadine [Allergy Relief (loratadine)] 10 mg tablet 10 mg PO DAILY Qty: 90 0RF fluticasone propionate [Flonase Allergy Relief] 50 mcg/actuation spray,suspension 2 spray intranasal BID 30 Days Qty: 16 3RF Rx Instructions: administer into each nostril albuterol sulfate [ProAir HFA] 90 mcg/actuation HFA aerosol inhaler 2 puff inhalation Q4H Qty: 8.5 0RF budesonide-formoterol [Symbicort] 160-4.5 mcg/actuation HFA aerosol inhaler 2 puff inhalation BID Qty: 10.2 6RF levothyroxine 150 mcg tablet 150 mcg PO QAM 90 Days Qty: 90 3RF dexlansoprazole [Dexilant] 60 mg capsule,biphase delayed releas 60 mg PO DAILY 30 Days Qty: 30 3RF prednisone 20 mg tablet 40 mg PO DAILY Qty: 10 0RF Xolair 150 mg/mL Syringe 300 mg SUBCUT Q4W azithromycin 250 mg tablet 250 mg PO ONCE 5 Days Qty: 6 0RF Rx Instructions: Take 2 tablets today then 1 daily divalproex 250 mg tablet extended release 24 hr 250 mg PO DAILY montelukast 10 mg tablet 10 mg PO DAILY lubiprostone [Amitiza] 8 mcg capsule 8 mcg PO BID Qty: 60 3RF bisacodyl [Dulcolax (bisacodyl)] 5 mg tablet,delayed release (DR/EC) 10 mg PO BEDTIME 2 Days Qty: 4 0RF famotidine 40 mg tablet 40 mg PO BEDTIME Qty: 60 6RF <Yanira Snyder NP - Last Filed: 04/24/22 11:26> Referrals: Thee Tay MD [Primary Care Provider] - 3 days <Yanira Snyder NP - Last Filed: 04/24/22 11:26> Stand Alone Forms: Work/School Release <Yanira Snyder NP - Last Filed: 04/24/22 11:26>
--- NOTE | 2022-04-24 11:23 | ECG_ITS ---
Test Reason : chest pain Blood Pressure : / mmHG Vent. Rate : 082 BPM Atrial Rate : 082 BPM P-R Int : 152 ms QRS Dur : 082 ms QT Int : 346 ms P-R-T Axes : 033 000 021 degrees QTc Int : 404 ms Normal sinus rhythm Cannot rule out Anterior infarct , age undetermined Abnormal ECG When compared with ECG of 24-MAR-2022 13:46, No significant change was found Referred By: Yanira Snyder Electronically Signed By:JEFFERY NASH MD
[2022-04-24 12:37] LABS: Influenza A PCR NEGATIVE (Negative); Influenza B PCR NEGATIVE (Negative); Resp Syncy Virus RNA Qual PCR NEGATIVE (Negative); SARS COV2 PCR INHOUSE NEGATIVE (Negative)
[2022-04-24 14:12] LABS: MANUAL DIFF FLAG NO
[2022-04-24 14:13] LABS: Basophils Percent Auto 0.4 % (0-2); Eosinophils Absolute Auto 0.1 X10*3/uL (0.0-0.4); Eosinophils Percent Auto 1.6 % (0-4); Hemoglobin 12.8 g/dl (12.0-16.0); Imm Gran Abs Auto 0.01 X10*3/uL (0.00-0.03); Imm Gran Pct Auto 0.2 % (0.0-0.4); Lymphocytes Absolute Auto 1.4 X10*3/uL (1.2-4.9); Lymphocytes Percent Auto 25.9 % (20-40); Mean Corpuscular Hemoglobin 25.9 pg (27.0-33.0); Mean Platelet Volume 10.6 fL (9.4-12.3); Monocytes Absolute Auto 0.6 X10*3/uL (0.1-1.2); Monocytes Percent Auto 9.9 % (2-11); Neutrophils Absolute Auto 3.5 x10*3/uL (2.0-8.3); Platelet Count 196 X10*3/uL (160-400); Red Blood Count 4.94 X10*6/uL (4.20-5.50); Red Cell Distribution Width 15.1 % (11.0-16.0); White Blood Count 5.6 X10*3/uL (4.8-10.8)
[2022-04-24 14:27] LABS: Appearance Urine Cloudy; Color Urine Yellow; Glucose Urine UA Negative (Negative); Leukocyte Esterase Urine Negative (Negative); Nitrite Urine Negative (Negative); UMIC TRIGGER UACC YES; Urine Blood Small (1+) (Negative); Urine Ketones 15 mg/dL (Negative); Urine Protein Trace mg/dL (Neg-Trace)
[2022-04-24 14:29] LABS: Bacteria Urine 1+ (None Seen); Hyaline Casts Urine 0-2 /LPF (0-2); WBC Urine 0-5 /HPF (0-5)
[2022-04-24 14:33] LABS: Lactic Acid 0.8 mmol/L (0.5-2.0)
[2022-04-24 14:36] LABS: Alanine Aminotransferase 9 U/L (0-31); Alkaline Phosphatase 100 U/L (39-117); Anion Gap 13 (12-20); Aspartate Amino Transferase 13 U/L (5-31); Bilirubin Direct < 0.2 mg/dL (0.0-0.5); Bilirubin Total 0.3 mg/dL (0.0-1.0); Blood Urea Nitrogen 10 mg/dL (9-16); Calcium 8.7 mg/dL (8.4-10.2); Carbon Dioxide 20 mmol/L (22-29); Chloride 108 mmol/L (96-108); Creatinine Clr Calc Pharmacy 106.7; Estimated Glomerular Filt Rate > 60; Glucose Random 92 mg/dL (60-115); Potassium 3.9 mmol/L (3.3-5.1); Sodium 137 mmol/L (135-145); Total Protein 6.1 g/dL (6.5-8.0)
[2022-04-24] MEDS: cefTRIAXone sodium 1 GM in 0.9 % Sodium Chloride 50 ML IV (14:38)
[2022-04-24 14:42] LABS: B Type Natriuretic Peptide < 10 pg/mL (<100)
[2022-04-24 14:50] LABS: Troponin-I High Sensitivity < 3.5 ng/L (<3.5-17.0)
[2022-04-24] MEDS: Albuterol/Iprat 2.5/0.5MG 3 ML AMPUL.NEB INHALE (15:03)
[2022-04-24 15:05] VITALS: PULSE 76; RESP 16; O2SAT 100
[2022-04-24] MEDS: Benzonatate 100 MG CAPSULE PO (15:23)
[2022-04-24] MEDS: HYDROcodone/Homat 5/1.5/5 ML 5 ML SYRUP PO (15:23)
[2022-04-24] MEDS: Acetaminophen 325 MG TABLET 650 MG PO (15:23)
[2022-04-24 16:18] VITALS: BP 130/80; PULSE 95; RESP 18; TEMP 36.5; O2SAT 95
== END 2022-04-24 16:28 | disposition home or self-care (01) ==
PROVIDERS: Nurse Practitioner Family; Physician Assistant; Emergency Provider Student in an Organized Health Care Education/Training Program; PCP Internal Medicine
DX: J18.9 Pneumonia, unspecified organism (principal); R06.02 Shortness of breath; Z20.828 Contact with and (suspected) exposure to other viral communicable diseases; E66.3 Overweight; Z68.36 Body mass index [BMI] 36.0-36.9, adult; Z87.891 Personal history of nicotine dependence
CPT/HCPCS: 0241U; 36415; 71046; 80048; 80076; 81001; 83605; 83735; 83880; 84484; 85025; 87040; 87147; 87205; 93005; 96374; 99284; J0696

== ENCOUNTER 2022-04-26 17:10 | Emergency (ER) | payer OTHER, SELFPAY ==
--- NOTE | 2022-04-26 | ECG_ITS ---
Test Reason : CHEST PAIN Blood Pressure : / mmHG Vent. Rate : 064 BPM Atrial Rate : 064 BPM P-R Int : 162 ms QRS Dur : 082 ms QT Int : 406 ms P-R-T Axes : 039 002 025 degrees QTc Int : 418 ms Normal sinus rhythm Possible Left atrial enlargement Septal infarct (cited on or before 24-APR-2022) Abnormal ECG When compared with ECG of 24-APR-2022 11:28, Questionable change in initial forces of Septal leads Referred By: Tony Lind Electronically Signed By:JEFFERY NASH MD
--- NOTE | ~2022-04-26 | XR_ITS ---
EXAMINATION: XR CHEST CLINICAL INFORMATION: Cough COMPARISON: Chest x-ray 04/24/2022 TECHNIQUE: Frontal view of the chest was obtained. FINDINGS: Redemonstrated patchy/nodular opacities in the right mid to lower lung, perhaps slightly more conspicuous. No other focal airspace opacity. No pleural effusion or pneumothorax. Normal cardiomediastinal silhouette and pulmonary vascularity. No acute osseous abnormality identified. XR/XR chest 1V IMPRESSION: 1. Redemonstrated patchy/nodular opacities in the right mid to lower lung, perhaps slightly more conspicuous compared to prior, presumably inflammatory or infectious. 2. No other focal airspace opacity identified.
[2022-04-26 17:16] VITALS: BP 122/80; PULSE 66; PULSE 76; RESP 16; TEMP 36.5; O2SAT 95; O2SAT 98; BMI 36.6
[2022-04-26 17:23] VITALS: BP 134/80; PULSE 66; RESP 19; TEMP 36.5; O2SAT 95
--- NOTE | 2022-04-26 17:23 | ED_ITS ---
HPI - General Adult General Chief complaint: General Medical Stated complaint: flu/ pneumonia Time Seen by Provider: 04/26/22 17:17 Source: patient Mode of arrival: ambulatory Limitations: no limitations History of Present Illness HPI narrative: Patient coughing last few days was seen here on 04/24 influenza COVID RSV was negative chest x-ray showed slight infiltrate in right lung suggestive of atypical pneumonia. Patient had influenza a in 03/18 patient comes back here for increased lethargic pain in the right chest and she take a breath and more cough patient does have history of asthma also complaining of a headache patient is saturating 95% at room air patient also complaining of nausea no vomiting Related Data Home Medications Medication Instructions Recorded Confirmed omalizumab 150 mg/mL subcutaneous 300 mg subcut Q4W 04/09/21 03/31/22 syringe (Xolair) divalproex 250 mg tablet,extended 250 mg PO DAILY 04/16/22 release 24 hr montelukast 10 mg tablet 10 mg PO DAILY 04/16/22 Previous Rx's Medication Instructions Recorded loratadine 10 mg tablet (Allergy 10 mg PO DAILY #90 tabs 01/24/22 Relief (loratadine)) fluticasone propionate 50 2 spray intranasal BID 30 days #16 01/28/22 mcg/actuation nasal grams spray,suspension (Flonase Allergy Relief) ProAir HFA 90 mcg/actuation 2 puff inhalation Q4H #8.5 grams 02/19/22 aerosol inhaler (albuterol sulfate) Symbicort 160 mcg-4.5 2 puff inhalation BID #10.2 grams 02/19/22 mcg/actuation HFA aerosol inhaler (budesonide-formoterol) levothyroxine 150 mcg tablet 150 mcg PO QAM 90 days #90 tabs 02/19/22 prednisone 20 mg tablet 40 mg PO DAILY #10 tabs 03/24/22 azithromycin 250 mg tablet 250 mg PO ONCE 5 days #6 tabs 03/31/22 dexlansoprazole 60 mg 60 mg PO DAILY 30 days #30 caps 04/09/22 capsule,biphase delayed release (Dexilant) bisacodyl 5 mg tablet,delayed 10 mg PO BEDTIME 2 days #4 tabs 04/16/22 release (Dulcolax (bisacodyl)) famotidine 40 mg tablet 40 mg PO BEDTIME acid reflux #60 04/16/22 tabs lubiprostone 8 mcg capsule 8 mcg PO BID #60 caps 04/16/22 (Amitiza) benzonatate 100 mg capsule 100 mg PO TID PRN cough #14 caps 04/24/22 cefpodoxime 200 mg tablet 200 mg PO BID 7 days #14 tabs 04/24/22 doxycycline hyclate 100 mg tablet 100 mg PO BID 7 days #14 tabs 04/24/22 hydrocodone-homatropine 5 mg-1.5 5 ml PO Q4-6H PRN cough #100 mL 04/24/22 mg/5 mL (5 mL) oral syrup (Hycodan) ondansetron 4 mg disintegrating 4 mg PO Q6-8H PRN nausea and 04/26/22 tablet vomiting #10 tabs oxycodone 5 mg tablet 5 mg PO Q6H PRN pain #20 tabs 04/26/22 prednisone 20 mg tablet 40 mg PO DAILY #10 tabs 04/26/22 Allergies Allergy/AdvReac Type Severity Reaction Status Date / Time NSAIDS (Non-Steroidal Allergy Severe THROAT Verified 04/16/22 11:23 Anti-Inflamma SWELLING [NSAIDS (NON-STEROIDAL ANTI-INFLAMMA] niacin Allergy Intermediate skin Verified 04/16/22 11:23 [Niaspan Extended-Release] blisters tramadol Allergy Intermediate seizures Verified 04/16/22 11:23 barley [BARLEY] Allergy Unknown UNKNOWN Verified 04/16/22 11:23 fluticasone [Advair Diskus] Allergy Unknown unknown Verified 04/16/22 11:23 ibuprofen Allergy Unknown Unknown Verified 04/16/22 11:23 naratriptan Allergy Unknown unknown Verified 04/16/22 11:23 Penicillins [PENICILLINS] Allergy Unknown [place] Verified 04/16/22 11:23 sumatriptan Allergy Unknown unknown Verified 04/16/22 11:23 trazodone [TRAZODONE] Allergy Unknown UNKNOWN Verified 04/16/22 11:23 Review of Systems Review of Systems: Yes all other systems are reviewed and are negative [facility] Past Medical History Medical History Anemia Aneurysm Asthma COVID-19 GERD (gastroesophageal reflux disease) Thyroid disease Surgical History H/O brain surgery History of colonoscopy Family History Family History Father Diabetes Arthritis Diverticulitis Leukemia Lung cancer Mental health disorder Mother Arthritis Colon polyps Anemia Brother Crohn's disease Testicular cancer Brother Cancer Paternal Grandfather Leukemia Other Substance use disorder Social History Social History Household Members: Significant Other Housing: House Are you a primary animal care provider to a significant other at home: No Do you presently have visiting nurse or other home services: No Alcohol intake: never Patient Tobacco Use Status: Former Tobacco user Tobacco use type: Cigarette e-Cigarette/Vaping Use: Never Used Advance Directives: Yes Advance Directives on File: Yes Advance Directives Date on File: 04/09/21 service: No 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al status: employed and disabled 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 Cognitive needs: No Hearing needs: No Vision needs: Yes Physical Exam ED Vital Signs: Vital Signs - 24 hr 04/26/22 17:16 04/26/22 17:23 04/26/22 18:04 Temperature 97.7 F 97.7 F Pulse Rate 66 66 68 Respiratory Rate 16 19 18 Blood Pressure 134/80 Pulse Oximetry 95 95 Oxygen Delivery Method Room Air Room Air 04/26/22 19:58 Temperature 97.8 F Pulse Rate 82 Respiratory Rate 16 Blood Pressure 123/69 Pulse Oximetry 98 Oxygen Delivery Method Room Air BMI result Body Mass Index 36.6 Appearance: Alert. Oriented X3. No acute distress. Eyes: PERRLA, No Nystagmus ENT: Pharynx normal. Oral Mucosa moist Neck: Normal inspection. Neck supple. CVS: Normal heart rate and rhythm. Pulses normal. Respiratory: No respiratory distress. Equal air entry bilateral, bilateral prolonged expiration Abdomen: Soft and nontender. Bowel sounds are present, no mass palpable, no CVA tenderness Skin: Skin warm and dry. Normal skin color. Normal skin turgor. Extremities: No lower extremity edema. No calf tenderness Neuro: Oriented X 3. No motor deficit. Medications Administered Discontinued Medications Generic Name Dose Route Start Last Admin Trade Name Freq PRN Reason Stop Dose Admin Albuterol Sulfate 2.5 mg/ 0 mg 04/26/22 17:42 04/26/22 18:00 Albuterol/Ipratropium 3 ml INHALE 04/26/22 17:43 5 each ONCE ONE Administration Dexamethasone 10 mg 04/26/22 17:42 04/26/22 18:00 Dexamethasone 2 Mg Tablet PO 04/26/22 17:43 10 mg ONCE ONE Administration Guaifenesin/Codeine Phosphate 10 ml 04/26/22 17:42 04/26/22 18:00 Guaifen/Codeine Sf 200/20/10ml 10 Ml Liquid PO 04/26/22 17:43 10 ml ONCE ONE Administration Ondansetron HCl 4 mg 04/26/22 17:42 04/26/22 18:00 Ondansetron Odt 4 Mg Tab.Rapdis TRANSLINGU 04/26/22 17:43 4 mg ONCE ONE Administration Sumatriptan Succinate 6 mg 04/26/22 17:42 04/26/22 18:00 Sumatriptan Succinate 6 Mg/0.5 Ml Vial SUBCUT 04/26/22 17:43 6 mg ONCE ONE Administration Medical Decision Making Medical Decision Making [facility] [place] Narrative: Patient with atypical pneumonia Zithromax and Cifpodoxime continue same if prednisone advised to continue albuterol inhaler Lab Data [facility] [place] Lab Attestation statement: I reviewed the patient's lab results. Discharge Plan Discharge Clinical Impression: Community acquired pneumonia, Asthmatic bronchitis Patient Disposition: Home, Self-Care Instructions: Acute Bronchitis (ED), Community Acquired Pneumonia (ED) Additional Instructions: Continue antibiotics and cough drops as prescribed Prednisone as prescribed Continue to use your inhaler Follow-up with PCP Prescriptions: New prednisone 20 mg tablet 40 mg PO DAILY Qty: 10 0RF ondansetron 4 mg tablet,disintegrating 4 mg PO Q6-8H PRN (Reason: nausea and vomiting) Qty: 10 0RF oxycodone 5 mg tablet 5 mg PO Q6H PRN (Reason: pain) Qty: 20 0RF Rx Instructions: Partial Fill upon patient request. No Action loratadine [Allergy Relief (loratadine)] 10 mg tablet 10 mg PO DAILY Qty: 90 0RF fluticasone propionate [Flonase Allergy Relief] 50 mcg/actuation spray,suspension 2 spray intranasal BID 30 Days Qty: 16 3RF Rx Instructions: administer into each nostril albuterol sulfate [ProAir HFA] 90 mcg/actuation HFA aerosol inhaler 2 puff inhalation Q4H Qty: 8.5 0RF budesonide-formoterol [Symbicort] 160-4.5 mcg/actuation HFA aerosol inhaler 2 puff inhalation BID Qty: 10.2 6RF levothyroxine 150 mcg tablet 150 mcg PO QAM 90 Days Qty: 90 3RF dexlansoprazole [Dexilant] 60 mg capsule,biphase delayed releas 60 mg PO DAILY 30 Days Qty: 30 3RF prednisone 20 mg tablet 40 mg PO DAILY Qty: 10 0RF cefpodoxime 200 mg tablet 200 mg PO BID 7 Days Qty: 14 0RF Rx Instructions: must administer with a meal/food benzonatate 100 mg capsule 100 mg PO TID PRN (Reason: cough) Qty: 14 0RF doxycycline hyclate 100 mg tablet 100 mg PO BID 7 Days Qty: 14 0RF hydrocodone-homatropine [Hycodan] 5-1.5 mg/5 mL (5 mL) syrup 5 ml PO Q4-6H PRN (Reason: cough) Qty: 100 0RF Rx Instructions: Partial Fill upon patient request. Xolair 150 mg/mL Syringe 300 mg SUBCUT Q4W azithromycin 250 mg tablet 250 mg PO ONCE 5 Days Qty: 6 0RF Rx Instructions: Take 2 tablets today then 1 daily divalproex 250 mg tablet extended release 24 hr 250 mg PO DAILY montelukast 10 mg tablet 10 mg PO DAILY lubiprostone [Amitiza] 8 mcg capsule 8 mcg PO BID Qty: 60 3RF bisacodyl [Dulcolax (bisacodyl)] 5 mg tablet,delayed release (DR/EC) 10 mg PO BEDTIME 2 Days Qty: 4 0RF famotidine 40 mg tablet 40 mg PO BEDTIME Qty: 60 6RF
--- NOTE | 2022-04-26 17:28 | PC.NURSE ---
pt recently discharged with pneumonia back related to increasing weakness and nausea. Pt reports that she gets out of breath getting up to go to the bathroom and feels like she is not improving. pt VSS at this time. EKG ordered and obtained due to pt stating she has chest pain
[2022-04-26] MEDS: Ondansetron ODT 4 MG TAB.RAPDIS TRANSLINGU (18:00)
[2022-04-26] MEDS: guaiFEN/Codeine SF 200/20/10ML 10 ML LIQUID PO (18:00)
[2022-04-26] MEDS: dexAMETHasone 2 MG TABLET 10 MG PO (18:00)
[2022-04-26] MEDS: SUMAtriptan succinate 6 MG/0.5 ML VIAL SUBCUT (18:00)
[2022-04-26] MEDS: Albuterol Sulfate 2.5 MG, Albuterol/Iprat 2.5/0.5MG 3 ML 3 ML INHALE (18:00)
[2022-04-26 18:04] VITALS: PULSE 68; RESP 18; O2SAT 95
[2022-04-26 19:58] VITALS: BP 123/69; PULSE 82; RESP 16; TEMP 36.6; O2SAT 98
== END 2022-04-26 20:55 | disposition home or self-care (01) ==
PROVIDERS: Emergency Provider Internal Medicine; PCP Internal Medicine
DX: J18.9 Pneumonia, unspecified organism (principal); J45.909 Unspecified asthma, uncomplicated
CPT/HCPCS: 71045; 93005; 94640; 96372; 99284; J3030; J8540

== ENCOUNTER 2022-05-08 12:08 | Outpatient (REF) | payer OTHER, SELFPAY | END 2022-05-08 12:09 | disposition home or self-care (01) | LOC: HO.MDS 12:08 | PROVIDERS: PCP Internal Medicine; Visit Provider Internal Medicine Pulmonary Disease | DX: J45.50 Severe persistent asthma, uncomplicated (principal) | CPT/HCPCS: 96372; J2357 ==

== ENCOUNTER 2022-05-08 12:35 | Emergency (ER) | payer OTHER, SELFPAY ==
--- NOTE | ~2022-05-08 | XR_ITS ---
EXAMINATION: XR CHEST CLINICAL INFORMATION: Shortness of breath COMPARISON: 04/26/2022 TECHNIQUE: 2 views of the chest were obtained. FINDINGS: Compared to the prior study, there's been significant improvement in the patchy nodular densities seen in the right mid to lower lung. Some linear atelectasis/scarring remains. The left lung remains clear. No pleural effusions are seen. The bony thorax is unremarkable. XR/XR chest 2V IMPRESSION: Significant improvement in appearances since the prior study. No acute intrathoracic disease.
--- NOTE | 2022-05-08 12:42 | ED_ITS ---
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 Patient otherwise denies any fever, chills in states that she feels like her ?lungs are tight?. <Bonnie Bowen MD - Last Filed: 05/08/22 17:50> Related Data Home Medications: Home Medications Medication Instructions Recorded Confirmed omalizumab 150 mg/mL subcutaneous 300 mg subcut Q4W 04/09/21 04/30/22 syringe (Xolair) divalproex 250 mg tablet,extended 250 mg PO DAILY 04/16/22 04/30/22 release 24 hr montelukast 10 mg tablet 10 mg PO DAILY 04/16/22 04/30/22 Previous Rx's Medication Instructions Recorded loratadine 10 mg tablet (Allergy 10 mg PO DAILY #90 tabs 01/24/22 Relief (loratadine)) fluticasone propionate 50 2 spray intranasal BID 30 days #16 01/28/22 mcg/actuation nasal grams spray,suspension (Flonase Allergy Relief) ProAir HFA 90 mcg/actuation 2 puff inhalation Q4H #8.5 grams 02/19/22 aerosol inhaler (albuterol sulfate) Symbicort 160 mcg-4.5 2 puff inhalation BID #10.2 grams 02/19/22 mcg/actuation HFA aerosol inhaler (budesonide-formoterol) levothyroxine 150 mcg tablet 150 mcg PO QAM 90 days #90 tabs 02/19/22 prednisone 20 mg tablet 40 mg PO DAILY #10 tabs 03/24/22 azithromycin 250 mg tablet 250 mg PO ONCE 5 days #6 tabs 03/31/22 dexlansoprazole 60 mg 60 mg PO DAILY 30 days #30 caps 04/09/22 capsule,biphase delayed release (Dexilant) bisacodyl 5 mg tablet,delayed 10 mg PO BEDTIME 2 days #4 tabs 04/16/22 release (Dulcolax (bisacodyl)) famotidine 40 mg tablet 40 mg PO BEDTIME acid reflux #60 04/16/22 tabs lubiprostone 8 mcg capsule 8 mcg PO BID #60 caps 04/16/22 (Amitiza) benzonatate 100 mg capsule 100 mg PO TID PRN cough #14 caps 04/24/22 cefpodoxime 200 mg tablet 200 mg PO BID 7 days #14 tabs 04/24/22 doxycycline hyclate 100 mg tablet 100 mg PO BID 7 days #14 tabs 04/24/22 hydrocodone-homatropine 5 mg-1.5 5 ml PO Q4-6H PRN cough #100 mL 04/24/22 mg/5 mL (5 mL) oral syrup (Hycodan) ondansetron 4 mg disintegrating 4 mg PO Q6-8H PRN nausea and 04/26/22 tablet vomiting #7 tabs oxycodone 5 mg tablet 5 mg PO Q6H PRN pain #20 tabs 04/26/22 prednisone 20 mg tablet 40 mg PO DAILY #10 tabs 04/26/22 <Yanira Snyder, [employer] SALES REPRESENTATIVE - Last Filed: 05/08/22 12:47> Allergies/Adverse Reactions: Allergies Allergy/AdvReac Type Severity Reaction Status Date / Time NSAIDS (Non-Steroidal Allergy Severe THROAT Verified 04/16/22 11:23 Anti-Inflamma SWELLING [NSAIDS (NON-STEROIDAL ANTI-INFLAMMA] niacin Allergy Intermediate skin Verified 04/16/22 11:23 [Niaspan Extended-Release] blisters tramadol Allergy Intermediate seizures Verified 04/16/22 11:23 barley [BARLEY] Allergy Unknown UNKNOWN Verified 04/16/22 11:23 fluticasone [Advair Diskus] Allergy Unknown unknown Verified 04/16/22 11:23 ibuprofen Allergy Unknown Unknown Verified 04/16/22 11:23 naratriptan Allergy Unknown unknown Verified 04/16/22 11:23 Penicillins [PENICILLINS] Allergy Unknown UNKNWON Verified 04/16/22 11:23 sumatriptan Allergy Unknown unknown Verified 04/16/22 11:23 trazodone [TRAZODONE] Allergy Unknown UNKNOWN Verified 04/16/22 11:23 <Yanira Snyder NP - Last Filed: 05/08/22 12:47> Review of Systems Review of Systems: Pertinent positives and negatives as stated in HPI <Bonnie Bowen MD - Last Filed: 05/08/22 17:50> PMFSH Past Medical History Source: nursing notes reviewed <Bonnie Bowen MD - Last Filed: 05/08/22 17:50> Medical History: Medical History Anemia Aneurysm Asthma COVID-19 GERD (gastroesophageal reflux disease) Thyroid disease <Yanira Snyder NP - Last Filed: 05/08/22 12:47> Surgical History: Surgical History H/O brain surgery History of colonoscopy <Yanira Snyder NP - Last Filed: 05/08/22 12:47> Family History Family History: Family History Father Diabetes Arthritis Diverticulitis Leukemia Lung cancer Mental health disorder Mother Arthritis Colon polyps Anemia Brother Crohn's disease Testicular cancer Brother Cancer Paternal Grandfather Leukemia Other Substance use disorder <Yanira Snyder NP - Last Filed: 05/08/22 12:47> Social History Social History: Social History Household Members: Significant Other Housing: House Are you a primary health care marketing manager to a significant other at home: No Do you presently have visiting nurse or other home services: No Alcohol intake: unknown Patient Tobacco Use Status: Former Tobacco user Tobacco use type: Cigarette e-Cigarette/Vaping Use: Never Used Advance Directives Date on File: 04/09/21 service: No 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al status: employed and disabled 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 Cognitive needs: No Hearing needs: No Vision needs: Yes <Yanira Snyder NP - Last Filed: 05/08/22 12:47> Physical Exam Vital Signs: Vital Signs: Last Vital Signs Temp 97.6 F 05/08/22 14:57 Pulse 84 05/08/22 14:57 Resp 19 05/08/22 14:57 BP 118/67 05/08/22 14:57 Pulse Ox 97 05/08/22 14:57 O2 Del Method 05/08/22 14:57 BMI result Body Mass Index 36.6 <Yanira Snyder NP - Last Filed: 05/08/22 12:47> Vital Signs: Last Vital Signs Temp 97.6 F 05/08/22 14:57 Pulse 84 05/08/22 14:57 Resp 19 05/08/22 14:57 BP 118/67 05/08/22 14:57 Pulse Ox 97 05/08/22 14:57 O2 Del Method 05/08/22 14:57 BMI result Body Mass Index 36.6 VITAL SIGNS: Reviewed. GENERAL: Well developed, well nourished, in no acute distress. HEAD: Normocephalic/atraumatic EYES: PERRLA, EOMI EARS: Ext canals without abnormality NOSE: Nares patent bilateral OROPHARYNX: no oral lesions noted, posterior pharynx clear NECK: Supple, no adenopathy LUNGS: Normal breath sounds, no tachypnea/wheeze/rhonchi/rales. SpO2<97> CARDIOVASCULAR: Regular rate and rhythm without noted murmurs, no JVD or lower extremity edema. ABDOMEN: Soft, non-tender, non-distended with bowel sounds. MUSCULOSKELETAL: No tenderness, deformities, or effusions noted on gross inspection. EXTREMITIES: No cyanosis, clubbing or edema. SKIN: Inspection of the skin reveals no rashes NEUROLOGIC: Alert and oriented x 4. Strength and sensation to light touch were grossly intact x 4. <Bonnie Bowen MD - Last Filed: 05/08/22 17:50> Course Course Course Narrative: This is rapid medical exam. Deferred additional HPI, ROS, PE. 52 yo female here with shortness of breath with exertion, chest heaviness, cough, orthopnea since February despite several rounds of antibiotics, prednisone. Seeing PCP tomorrow for a follow-up appointment. Patient is concerned states my heart is not okay. VSS. Will obtain labs, EKG, CXR, viral testing for flu/covid/rsv. <Yanira Snyder NP - Last Filed: 05/08/22 12:47> Medical Decision Making Medical Decision Making [facility] Narrative: 52-year-old female with possible GEENA and on review of all investigations my interpretation is there are no acute infectious/respiratory findings, patient is oxygenating well on room air and is not tachypneic nor she tachycardic nor she febrile. Patient is otherwise hemodynamically stable for discharge to home to continue her home medications and has good follow-up on 05/20. <Bonnie Bowen MD - Last Filed: 05/08/22 17:50> Differential Diagnosis Differential Diagnoses: The differential diagnosis associated with the presentation includes <Bonnie Bowen MD - Last Filed: 05/08/22 17:50> Please see the discussion above <Bonnie Bowen MD - Last Filed: 05/08/22 17:50> Lab Data [facility] Lab Attestation statement: I reviewed the patient's lab results. <Bonnie Bowen MD - Last Filed: 05/08/22 17:50> Please see the discussion above <Bonnie Bowen MD - Last Filed: 05/08/22 17:50> Result Diagrams: 05/08/22 13:22 05/08/22 13:22 <Yanira Snyder NP - Last Filed: 05/08/22 12:47> Labs: Lab Results 05/08/22 05/08/22 05/08/22 Range/Units 13:22 13:22 13:22 WBC 10.0 (4.8-10.8) X10*3/uL RBC 4.73 (4.20-5.50) X10*6/uL Hgb 12.4 (12.0-16.0) g/dl Hct 38.2 (37.0-47.0) % MCV 80.8 (80.0-98.0) fL MCH 26.2 L (27.0-33.0) pg MCHC 32.5 (31.0-35.0) g/dl RDW 14.8 (11.0-16.0) % Plt Count 260 D (160-400) X10*3/uL MPV 11.1 (9.4-12.3) fL Immature Gran % (Auto) 0.4 (0.0-0.4) % Neut % (Auto) 69.8 (45-73) % Lymph % (Auto) 19.6 L (20-40) % [place] % (Auto) 7.2 (2-11) % Eos % (Auto) 2.4 (0-4) % Baso % (Auto) 0.6 (0-2) % Lymph # (Auto) 2.0 (1.2-4.9) X10*3/uL [place] # (Auto) 0.7 (0.1-1.2) X10*3/uL Eos # (Auto) 0.2 (0.0-0.4) X10*3/uL Baso # (Auto) 0.1 (0.0-0.2) X10*3/uL Abs Immat Gran (auto) 0.04 H (0.00-0.03) X10*3/uL Absolute Neuts (auto) 7.0 (2.0-8.3) x10*3/uL Absolute Nucleated RBC 0.000 (0.0-0.012) X10*3/uL Nucleated RBC % (auto) 0.0 (0.0-0.2) /100WBC PT (10.0-13.1) SEC INR (0.9-1.1) Sodium 138 (135-145) mmol/L Potassium 3.8 (3.3-5.1) mmol/L Chloride 109 H (96-108) mmol/L Carbon Dioxide 22 (22-29) mmol/L Anion Gap 11 L (12-20) BUN 11 (9-16) mg/dL Creatinine 0.64 (0.5-1.4) mg/dL Estim Creat Clear Calc 121.6 Estimated GFR > 60 Random Glucose 119 H (60-115) mg/dL Calcium 8.8 (8.4-10.2) mg/dL Total Bilirubin 0.3 (0.0-1.0) mg/dL Direct Bilirubin 0.2 (0.0-0.5) mg/dL AST 10 (5-31) U/L ALT 14 (0-31) U/L Alkaline Phosphatase 114 (39-117) U/L Troponin I High Sens < 3.5 (<3.5-17.0) ng/L Total Protein 5.8 L (6.5-8.0) g/dL Albumin 3.7 (3.5-5.0) g/dL Influenza Type A (PCR) (Negative) Influenza Type B (PCR) (Negative) RSV RNA Qual (PCR) (Negative) SARS-CoV-2 RNA (RT-PCR) (Negative) 05/08/22 05/08/22 Range/Units 13:22 13:22 WBC (4.8-10.8) X10*3/uL RBC (4.20-5.50) X10*6/uL Hgb (12.0-16.0) g/dl Hct (37.0-47.0) % MCV (80.0-98.0) fL MCH (27.0-33.0) pg MCHC (31.0-35.0) g/dl RDW (11.0-16.0) % Plt Count (160-400) X10*3/uL MPV (9.4-12.3) fL Immature Gran % (Auto) (0.0-0.4) % Neut % (Auto) (45-73) % Lymph % (Auto) (20-40) % [place] % (Auto) (2-11) % Eos % (Auto) (0-4) % Baso % (Auto) (0-2) % Lymph # (Auto) (1.2-4.9) X10*3/uL [place] # (Auto) (0.1-1.2) X10*3/uL Eos # (Auto) (0.0-0.4) X10*3/uL Baso # (Auto) (0.0-0.2) X10*3/uL Abs Immat Gran (auto) (0.00-0.03) X10*3/uL Absolute Neuts (auto) (2.0-8.3) x10*3/uL Absolute Nucleated RBC (0.0-0.012) X10*3/uL Nucleated RBC % (auto) (0.0-0.2) /100WBC PT 11.3 (10.0-13.1) SEC INR 1.0 (0.9-1.1) Sodium (135-145) mmol/L Potassium (3.3-5.1) mmol/L Chloride (96-108) mmol/L Carbon Dioxide (22-29) mmol/L Anion Gap (12-20) BUN (9-16) mg/dL Creatinine (0.5-1.4) mg/dL Estim Creat Clear Calc Estimated GFR Random Glucose (60-115) mg/dL Calcium (8.4-10.2) mg/dL Total Bilirubin (0.0-1.0) mg/dL Direct Bilirubin (0.0-0.5) mg/dL AST (5-31) U/L ALT (0-31) U/L Alkaline Phosphatase (39-117) U/L Troponin I High Sens (<3.5-17.0) ng/L Total Protein (6.5-8.0) g/dL Albumin (3.5-5.0) g/dL Influenza Type A (PCR) NEGATIVE (Negative) Influenza Type B (PCR) NEGATIVE (Negative) RSV RNA Qual (PCR) NEGATIVE (Negative) SARS-CoV-2 RNA (RT-PCR) NEGATIVE (Negative) <Yanira Snyder, [employer] SALES REPRESENTATIVE - Last Filed: 05/08/22 12:47> Lab Results 05/08/22 05/08/22 05/08/22 Range/Units 13:22 13:22 13:22 WBC 10.0 (4.8-10.8) X10*3/uL RBC 4.73 (4.20-5.50) X10*6/uL Hgb 12.4 (12.0-16.0) g/dl Hct 38.2 (37.0-47.0) % MCV 80.8 (80.0-98.0) fL MCH 26.2 L (27.0-33.0) pg MCHC 32.5 (31.0-35.0) g/dl RDW 14.8 (11.0-16.0) % Plt Count 260 D (160-400) X10*3/uL MPV 11.1 (9.4-12.3) fL Immature Gran % (Auto) 0.4 (0.0-0.4) % Neut % (Auto) 69.8 (45-73) % Lymph % (Auto) 19.6 L (20-40) % [place] % (Auto) 7.2 (2-11) % Eos % (Auto) 2.4 (0-4) % Baso % (Auto) 0.6 (0-2) % Lymph # (Auto) 2.0 (1.2-4.9) X10*3/uL [place] # (Auto) 0.7 (0.1-1.2) X10*3/uL Eos # (Auto) 0.2 (0.0-0.4) X10*3/uL Baso # (Auto) 0.1 (0.0-0.2) X10*3/uL Abs Immat Gran (auto) 0.04 H (0.00-0.03) X10*3/uL Absolute Neuts (auto) 7.0 (2.0-8.3) x10*3/uL Absolute Nucleated RBC 0.000 (0.0-0.012) X10*3/uL Nucleated RBC % (auto) 0.0 (0.0-0.2) /100WBC PT (10.0-13.1) SEC INR (0.9-1.1) Sodium 138 (135-145) mmol/L Potassium 3.8 (3.3-5.1) mmol/L Chloride 109 H (96-108) mmol/L Carbon Dioxide 22 (22-29) mmol/L Anion Gap 11 L (12-20) BUN 11 (9-16) mg/dL Creatinine 0.64 (0.5-1.4) mg/dL Estim Creat Clear Calc 121.6 Estimated GFR > 60 Random Glucose 119 H (60-115) mg/dL Calcium 8.8 (8.4-10.2) mg/dL Total Bilirubin 0.3 (0.0-1.0) mg/dL Direct Bilirubin 0.2 (0.0-0.5) mg/dL AST 10 (5-31) U/L ALT 14 (0-31) U/L Alkaline Phosphatase 114 (39-117) U/L Troponin I High Sens < 3.5 (<3.5-17.0) ng/L Total Protein 5.8 L (6.5-8.0) g/dL Albumin 3.7 (3.5-5.0) g/dL Influenza Type A (PCR) (Negative) Influenza Type B (PCR) (Negative) RSV RNA Qual (PCR) (Negative) SARS-CoV-2 RNA (RT-PCR) (Negative) 05/08/22 05/08/22 Range/Units 13:22 13:22 WBC (4.8-10.8) X10*3/uL RBC (4.20-5.50) X10*6/uL Hgb (12.0-16.0) g/dl Hct (37.0-47.0) % MCV (80.0-98.0) fL MCH (27.0-33.0) pg MCHC (31.0-35.0) g/dl RDW (11.0-16.0) % Plt Count (160-400) X10*3/uL MPV (9.4-12.3) fL Immature Gran % (Auto) (0.0-0.4) % Neut % (Auto) (45-73) % Lymph % (Auto) (20-40) % [place] % (Auto) (2-11) % Eos % (Auto) (0-4) % Baso % (Auto) (0-2) % Lymph # (Auto) (1.2-4.9) X10*3/uL [place] # (Auto) (0.1-1.2) X10*3/uL Eos # (Auto) (0.0-0.4) X10*3/uL Baso # (Auto) (0.0-0.2) X10*3/uL Abs Immat Gran (auto) (0.00-0.03) X10*3/uL Absolute Neuts (auto) (2.0-8.3) x10*3/uL Absolute Nucleated RBC (0.0-0.012) X10*3/uL Nucleated RBC % (auto) (0.0-0.2) /100WBC PT 11.3 (10.0-13.1) SEC INR 1.0 (0.9-1.1) Sodium (135-145) mmol/L Potassium (3.3-5.1) mmol/L Chloride (96-108) mmol/L Carbon Dioxide (22-29) mmol/L Anion Gap (12-20) BUN (9-16) mg/dL Creatinine (0.5-1.4) mg/dL Estim Creat Clear Calc Estimated GFR Random Glucose (60-115) mg/dL Calcium (8.4-10.2) mg/dL Total Bilirubin (0.0-1.0) mg/dL Direct Bilirubin (0.0-0.5) mg/dL AST (5-31) U/L ALT (0-31) U/L Alkaline Phosphatase (39-117) U/L Troponin I High Sens (<3.5-17.0) ng/L Total Protein (6.5-8.0) g/dL Albumin (3.5-5.0) g/dL Influenza Type A (PCR) NEGATIVE (Negative) Influenza Type B (PCR) NEGATIVE (Negative) RSV RNA Qual (PCR) NEGATIVE (Negative) SARS-CoV-2 RNA (RT-PCR) NEGATIVE (Negative) <Bonnie Bowen MD - Last Filed: 05/08/22 17:50> Independent Interpretation I performed an independent interpretation of an: EKG <Bonnie Bowen MD - Last Filed: 05/08/22 17:50> Interpretation: Normal sinus rhythm, HR-84, no STEMI, WI/QRS/QTC is within normal limits. <Bonnie Bowen MD - Last Filed: 05/08/22 17:50> Radiology Impression Radiologist Impression: My interpretation is in agreement with radiology's impression of imaging studies. <Bonnie Bowen MD - Last Filed: 05/08/22 17:50> External Record Review External record reviewed: Outpatient record and Prior outpatient labs <Bonnie Bowen MD - Last Filed: 05/08/22 17:50> Critical Care Time Critical Care Time Critical Care Time: Yes <Bonnie Bowen MD - Last Filed: 05/08/22 17:50> Total Critical Care Time: 45 <Bonnie Bowen MD - Last Filed: 05/08/22 17:50> Attestation: I personally attest to this time spent taking care of the patient. <Bonnie Bowen MD - Last Filed: 05/08/22 17:50> Discharge Plan Discharge Clinical Impression: Fatigue, Obstructive sleep apnea <Yanira Snyder NP - Last Filed: 05/08/22 12:47> Patient Disposition: Home, Self-Care <Yanira Snyder NP - Last Filed: 05/08/22 12:47> Instructions: Fatigue (ED), Sleep Apnea (DC) <Yanira Snyder NP - Last Filed: 05/08/22 12:47> Additional Instructions: 1. Resume home medications as prescribed. 2. Keep your appointment with Dr. Ambrosio on 05/20 and further discuss possible sleep study for your symptoms. Return to the ER for any worsening symptoms. <Yanira Snyder NP - Last Filed: 05/08/22 12:47> Prescriptions: No Action loratadine [Allergy Relief (loratadine)] 10 mg tablet 10 mg PO DAILY Qty: 90 0RF fluticasone propionate [Flonase Allergy Relief] 50 mcg/actuation spray,suspension 2 spray intranasal BID 30 Days Qty: 16 3RF Rx Instructions: administer into each nostril albuterol sulfate [ProAir HFA] 90 mcg/actuation HFA aerosol inhaler 2 puff inhalation Q4H Qty: 8.5 0RF budesonide-formoterol [Symbicort] 160-4.5 mcg/actuation HFA aerosol inhaler 2 puff inhalation BID Qty: 10.2 6RF levothyroxine 150 mcg tablet 150 mcg PO QAM 90 Days Qty: 90 3RF dexlansoprazole [Dexilant] 60 mg capsule,biphase delayed releas 60 mg PO DAILY 30 Days Qty: 30 3RF prednisone 20 mg tablet 40 mg PO DAILY Qty: 10 0RF cefpodoxime 200 mg tablet 200 mg PO BID 7 Days Qty: 14 0RF Rx Instructions: must administer with a meal/food benzonatate 100 mg capsule 100 mg PO TID PRN (Reason: cough) Qty: 14 0RF doxycycline hyclate 100 mg tablet 100 mg PO BID 7 Days Qty: 14 0RF hydrocodone-homatropine [Hycodan] 5-1.5 mg/5 mL (5 mL) syrup 5 ml PO Q4-6H PRN (Reason: cough) Qty: 100 0RF Rx Instructions: Partial Fill upon patient request. Xolair 150 mg/mL Syringe 300 mg SUBCUT Q4W prednisone 20 mg tablet 40 mg PO DAILY Qty: 10 0RF ondansetron 4 mg tablet,disintegrating 4 mg PO Q6-8H PRN (Reason: nausea and vomiting) Qty: 7 0RF oxycodone 5 mg tablet 5 mg PO Q6H PRN (Reason: pain) Qty: 20 0RF Rx Instructions: Partial Fill upon patient request. azithromycin 250 mg tablet 250 mg PO ONCE 5 Days Qty: 6 0RF Rx Instructions: Take 2 tablets today then 1 daily divalproex 250 mg tablet extended release 24 hr 250 mg PO DAILY montelukast 10 mg tablet 10 mg PO DAILY lubiprostone [Amitiza] 8 mcg capsule 8 mcg PO BID Qty: 60 3RF bisacodyl [Dulcolax (bisacodyl)] 5 mg tablet,delayed release (DR/EC) 10 mg PO BEDTIME 2 Days Qty: 4 0RF famotidine 40 mg tablet 40 mg PO BEDTIME Qty: 60 6RF <Yanira Snyder NP - Last Filed: 05/08/22 12:47> Referrals: Thee Tay MD [Primary Care Provider] - Wyatt Ambrosio MD [Physician] - <Yanira Snyder NP - Last Filed: 05/08/22 12:47>
[2022-05-08 12:44] VITALS: BP 128/79; PULSE 91; RESP 20; TEMP 36.4; O2SAT 96; BMI 36.6
--- NOTE | 2022-05-08 12:45 | ECG_ITS ---
Test Reason : weakness Blood Pressure : / mmHG Vent. Rate : 084 BPM Atrial Rate : 084 BPM P-R Int : 152 ms QRS Dur : 082 ms QT Int : 364 ms P-R-T Axes : 032 -03 017 degrees QTc Int : 430 ms Normal sinus rhythm Possible Left atrial enlargement Nonspecific ST abnormality Abnormal ECG When compared with ECG of 26-APR-2022 17:16, Criteria for Septal infarct are no longer Present Referred By: Yanira Snyder Electronically Signed By:Kd Hernandez
[2022-05-08 13:41] LABS: MANUAL DIFF FLAG NO
[2022-05-08 13:50] LABS: Basophils Absolute Auto 0.1 X10*3/uL (0.0-0.2); Basophils Percent Auto 0.6 % (0-2); Eosinophils Absolute Auto 0.2 X10*3/uL (0.0-0.4); Eosinophils Percent Auto 2.4 % (0-4); Hematocrit 38.2 % (37.0-47.0); Hemoglobin 12.4 g/dl (12.0-16.0); Imm Gran Abs Auto 0.04 X10*3/uL (0.00-0.03); Imm Gran Pct Auto 0.4 % (0.0-0.4); Lymphocytes Percent Auto 19.6 % (20-40); Mean Corpuscular HGB Conc 32.5 g/dl (31.0-35.0); Mean Corpuscular Hemoglobin 26.2 pg (27.0-33.0); Mean Corpuscular Volume 80.8 fL (80.0-98.0); Mean Platelet Volume 11.1 fL (9.4-12.3); Monocytes Absolute Auto 0.7 X10*3/uL (0.1-1.2); Monocytes Percent Auto 7.2 % (2-11); Neutrophils Percent Auto 69.8 % (45-73); Platelet Count 260 X10*3/uL (160-400); Red Blood Count 4.73 X10*6/uL (4.20-5.50); Red Cell Distribution Width 14.8 % (11.0-16.0)
[2022-05-08 13:54] LABS: Prothrombin Time 11.3 SEC (10.0-13.1)
[2022-05-08 14:04] LABS: Alanine Aminotransferase 14 U/L (0-31); Albumin Level 3.7 g/dL (3.5-5.0); Alkaline Phosphatase 114 U/L (39-117); Anion Gap 11 (12-20); Aspartate Amino Transferase 10 U/L (5-31); Bilirubin Direct 0.2 mg/dL (0.0-0.5); Bilirubin Total 0.3 mg/dL (0.0-1.0); Blood Urea Nitrogen 11 mg/dL (9-16); Calcium 8.8 mg/dL (8.4-10.2); Carbon Dioxide 22 mmol/L (22-29); Chloride 109 mmol/L (96-108); Creatinine Clr Calc Pharmacy 121.6; Estimated Glomerular Filt Rate > 60; Glucose Random 119 mg/dL (60-115); Potassium 3.8 mmol/L (3.3-5.1); Sodium 138 mmol/L (135-145); Total Protein 5.8 g/dL (6.5-8.0)
[2022-05-08 14:18] LABS: Troponin-I High Sensitivity < 3.5 ng/L (<3.5-17.0)
[2022-05-08 14:35] LABS: Influenza A PCR NEGATIVE (Negative); Influenza B PCR NEGATIVE (Negative); Resp Syncy Virus RNA Qual PCR NEGATIVE (Negative); SARS COV2 PCR INHOUSE NEGATIVE (Negative)
--- NOTE | 2022-05-08 14:53 | PC.NURSE ---
Patient complaint of SOB and chest discomfort woke her from a sleep has been seen for same recently, LS clear no distress noted O2 sat 95 % on room air
[2022-05-08 14:57] VITALS: BP 118/67; PULSE 84; RESP 19; TEMP 36.4; O2SAT 97
== END 2022-05-08 18:26 | disposition home or self-care (01) ==
PROVIDERS: Nurse Practitioner Family; Emergency Provider Student in an Organized Health Care Education/Training Program; PCP Internal Medicine
DX: R53.83 Other fatigue (principal); G47.33 Obstructive sleep apnea (adult) (pediatric); R06.02 Shortness of breath; Z20.822 Contact with and (suspected) exposure to COVID-19; Z20.828 Contact with and (suspected) exposure to other viral communicable diseases; E66.9 Obesity, unspecified; Z68.36 Body mass index [BMI] 36.0-36.9, adult; J45.909 Unspecified asthma, uncomplicated; Z87.891 Personal history of nicotine dependence
CPT/HCPCS: 0241U; 36415; 71046; 80048; 80076; 84484; 85025; 85610; 93005; 99283; 99284

== ENCOUNTER → 2022-05-23 09:59 | Outpatient (BNVA) | payer OTHER, SELFPAY | PROVIDERS: PCP Internal Medicine; Visit Provider Internal Medicine Pulmonary Disease | DX: J45.50 Severe persistent asthma, uncomplicated (principal); Z91.09 Other allergy status, other than to drugs and biological substances; Z87.74 Personal history of (corrected) congenital malformations of heart and circulatory system | CPT/HCPCS: 99212 ==

== ENCOUNTER → 2022-06-05 10:02 | Outpatient (REF) | payer OTHER, SELFPAY ==
--- NOTE | 2022-06-05 10:04 | CA_ITS ---
Transthoracic Echocardiogram Patient (Last, First, Middle): Berenice Shepard M Gender: Female Date of : 1970 Age: 52 Procedure Date: 06/05/2022 Procedure Type: Transthoracic Echocardiogram Location: OP Height: 165.1 cm Weight: 98.88 kg BSA: 2.05 m2 Heart Rate: 77 bpm BP: 125 / 75 mmHg Supervisor [employer]: LEO Maloney MD: Wyatt Ambrosio MD Fp[employer] Engineer: Myke Zaman MD Symptoms: Z87.74 - Personal history of (corrected) congenital malformations of hea... Study Quality: Adequate ECG Rhythm: Sinus Conclusions: - 1. Normal LV systolic function with mild LVH with impaired relaxation filling pattern 2. Normal cardiac valvular Doppler 3. Normal RV systolic pressure 4. No gross pericardial effusion Findings Left Ventricle Normal left ventricular size and systolic function. There is mildly increased left ventricular wall thickness. The visually estimated ejection fraction is between 55-60%. Spectral Doppler is indicative of an impaired relaxation filling pattern. E/E prime ratio is between 8 and 15 consistent with indeterminate filling pressures. Peak GLS is -19.0%, within normal limits. Right Ventricle Normal right ventricular cavity size and systolic function. Atria The left atrium is normal in size. Interatrial shunt cannot be excluded. The right atrium is normal in size. Aortic Valve There is no aortic valve stenosis. There is no aortic valve regurgitation. Possible bicuspid aortic valve Mitral Valve Normal mitral valve structure and function. There is trace mitral valve regurgitation. There is no mitral valve stenosis. Pulmonic Valve The pulmonic valve was not well visualized. Tricuspid Valve Normal tricuspid valve structure. There is mild tricuspid valve regurgitation. The right ventricular systolic pressure is normal. The right ventricular systolic pressure is 20 mmHg. Normal right atrial pressure. There is no evidence of pulmonary hypertension. Great Vessels All visible segments of the aorta are normal in size. The pulmonary artery was not well visualized. Venous The inferior vena cava is normal in size and collapses greater than 50% with inspiration. Pericardium/Pleural There is no evidence of pericardial effusion. Prior Study Comparison No prior study available for comparison. Recommendations, Care & Conclusions Recommend contrast study to evaluate intracardiac shunting. Measurements 2D Linear Measurements IVSd: 1.22 0.6-0.9/0.6-1.0 cm LVIDd: 5.05 3.9-5.3/4.2-5.9 cm LVIDd Index: 2.46 2.4-3.2/2.2-3.1 cm/m2 LVIDs: 3.81 2.0-3.6 cm LVPWd: 1.28 0.7-1.1 cm LA Diam: 3.10 2.7-3.8/3.0-4.0 cm LAIDs Index: 1.51 1.5-2.3 cm/m2 LV Mass: 313.64 67-162/88-224 g LV Mass Index: 153.00 43-95/49-115 g/m2 LVOT Diam: 2.20 3.0+(-)1.3 cm Mitral Valve MV Pk E: 0.75 MV PK A: 0.93 MV Decel Time: 256.00 E/A: 0.80 E'Lateral: 8.27 E'Medial: 7.40 E/E' Med: 10.10 E/E' Lat: 9.00 PHT: 75.00 MVA PHT: 2.93 Decel Knox: 2.91 Aortic Valve AoV Pk Sorin: 1.48 AoV Mn Sorin: 1.07 AoV VTI: 0.30 AoV Pk Grad: 9.00 Aov Mn Grad: 5.00 BRIANDA Cont.VTI: 3.01 LVOT LVOT Pk Sorin: 1.12 LVOT Mn Sorin: 0.79 LVOT VTI: 0.24 LVOT Pk Grad: 5.00 LVOT Mn Grad: 3.00 LVOT Diam: 2.20 LVOT Area: 3.80 Diastolic Function MV Pk E: 0.75 MV Pk A: 0.93 E/A: 0.80 E'Medial: 7.40 E/E' Med: 10.10 E' Laterial: 8.27 E/E' Lat: 9.00 Right Ventricle TAPSE (mm): 20.80 TVS' Sorin: 11.00 Tricuspid Valve TR Pk Sorin: 2.05 TR Pk Grad: 17.00 RA Press: 3.00 RVSP: 20.00 Great Vessels Aorta Sinus of Valsalva: 3.60 2.0-3.5 cm Ao Asc: 3.40 2.1-3.4 cm Pulmonary Valve PV Pk Sorin: 0.94 Peak PV Grad: 4.00 Updated in Other Vendor System with Status of Final Myke Zaman MD electronically signed on 06/07/2022 12:47:26 PM with status of Final
== END ==
LOC: HO.CARD 10:02
PROVIDERS: PCP Internal Medicine; Visit Provider Internal Medicine Pulmonary Disease
DX: Z87.74 Personal history of (corrected) congenital malformations of heart and circulatory system (principal)
CPT/HCPCS: 93306; 93356; J2357

== ENCOUNTER 2022-06-05 10:57 | Outpatient (REF) | payer OTHER, SELFPAY | END 2022-06-05 10:58 | disposition home or self-care (01) | LOC: HO.MDS 10:57 | PROVIDERS: Visit Provider Internal Medicine Pulmonary Disease | DX: J45.50 Severe persistent asthma, uncomplicated (principal) | CPT/HCPCS: 96372; J2357 ==

== ENCOUNTER → 2022-06-17 10:19 | Outpatient (BNVA) | payer OTHER, SELFPAY | PROVIDERS: PCP Internal Medicine; Referring Provider Internal Medicine; Visit Provider Nurse Practitioner | DX: K21.9 Gastro-esophageal reflux disease without esophagitis (principal); K59.04 Chronic idiopathic constipation; K64.9 Unspecified hemorrhoids; D64.9 Anemia, unspecified; R14.0 Abdominal distension (gaseous) | CPT/HCPCS: 99212 ==

== ENCOUNTER 2022-06-26 13:51 | Outpatient (REF) | payer OTHER, MEDICAID, SELFPAY ==
--- NOTE | ~2022-06-26 | MM_ITS ---
EXAMINATION: MM DIAGNOSTIC DIGITAL BREAST TOMOSYNTHESIS, RIGHT CLINICAL INFORMATION: Short interval six-month follow-up for nodularity mid central lower right breast. The lifetime risk of breast cancer based on the Tyrer-Cuzick Model is 7%. COMPARISON: Mammography: 12/10/2021 (BI-RADS 0), 04/12/2019, 04/07/2018; targeted right breast ultrasound 12/19/2021. TECHNIQUE: Digital breast tomosynthesis is performed in both the craniocaudal and mediolateral oblique views along with computer-aided detection (CAD). Synthesized 2D images are generated from the tomosynthesis. FINDINGS: There are scattered areas of fibroglandular density (ACR BI-RADS breast composition Category b). Parenchymal pattern is similar to prior exam. There is no developing density or interval architectural abnormality. No abnormal calcifications. The skin contours are unremarkable. The 2 nodules for follow-up are stable. The more posterior is without change since 2018 and consistent with a benign nodule. The more anterior mid central lower breast approximately 8 cm from nipple is stable from prior exam and will be reassessed again at time of annual bilateral mammography, due in 6 months. Results are provided to the patient at time of visit by the technologist. MM/MM tomosynthesis diagnostic RT IMPRESSION: -Benign-appearing smooth nodularity mid central lower right breast stable. ASSESSMENT: BI-RADS 3: Probably Benign RECOMMENDATION: Diagnostic mammography at time of bilateral exam, due in 6 months. This patient's information was entered into a reminder system with a target due date for their next mammogram.
== END 2022-06-26 13:52 | disposition home or self-care (01) ==
LOC: HO.MAMMO 13:51
PROVIDERS: PCP Internal Medicine; Visit Provider Internal Medicine
DX: R92.2 Inconclusive mammogram (principal)
CPT/HCPCS: 77061; 77065

== ENCOUNTER → 2022-07-08 11:53 | Outpatient (BNVA) | payer OTHER, MEDICAID, SELFPAY | PROVIDERS: PCP Internal Medicine; Referring Provider Internal Medicine; Visit Provider Internal Medicine Cardiovascular Disease | DX: Z13.89 Encounter for screening for other disorder (principal) ==

== ENCOUNTER 2022-07-18 11:33 | Day surgery (SDC) | payer OTHER, MEDICAID, SELFPAY ==
[2022-07-15 11:26] VITALS: BMI 35.9
--- NOTE | 2022-07-17 09:48 | HO.ANESPROP2 ---
Documented by User: Serena Miller NP 07/17/22 10:00 HPI - Anesthesia Eval Consult details Narrative: 52yo F for Transesophageal Echocardiogram PMFSH Active Problems Active Problems: All Active Problems (Updated 07/08/22 @ 13:16 by Myke Zaman MD) PFO (patent foramen ovale) (Acute) Chronic idiopathic constipation (Acute) Personal history of atrial septal defect (Acute) Shortness of breath (Acute) Abnormal EKG (Acute) Community acquired pneumonia (Acute) Hospital discharge follow-up (Acute) Chronic idiopathic constipation (Acute) Pre-op examination (Acute) Influenza A H1N1 infection (Acute) Chronic vertigo (Acute) Elevated fasting blood sugar (Acute) Abnormal mammogram of right breast (Acute) Encounter for routine gynecological examination (Acute) Morbid obesity due to excess calories (Acute) Knee pain, right (Acute) LFT elevation (Acute) Encounter for general adult medical examination with abnormal findings (Acute) Sinusitis (Acute) Respiratory tract congestion with cough (Acute) Hospital discharge follow-up (Acute) Post-COVID syndrome (Acute) Memory changes (Acute) GERD (gastroesophageal reflux disease) (Acute) Abdominal bloating (Acute) Nausea and vomiting (Acute) Postmenopausal bleeding (Acute) Stool incontinence (Acute) Hypothyroidism (Acute) Immunizations incomplete (Acute) Severe persistent allergic asthma (Acute) Environmental allergies (Acute) Shoulder pain, right (Acute) Sciatica, left side (Acute) Anemia (Acute) Shoulder pain (Acute) Impingement syndrome of right shoulder (Acute) Iron deficiency anemia (Acute) Colon cancer screening (Acute) Bleeding hemorrhoids (Acute) Chronic sinusitis (Acute) Other specified hypothyroidism (Acute) COVID-19 (Acute) Tracheobronchitis (Acute) COVID-19 (Acute) Past Medical History Medical History Abnormal angiogram of head Anemia Aneurysm Asthma COVID-19 GERD (gastroesophageal reflux disease) Thyroid disease Family History Family History Father Diabetes Arthritis Diverticulitis Leukemia Mental health disorder Lung cancer Mother Anemia Arthritis Colon polyps Myocardial infarction Brother Crohn's disease Testicular cancer Brother Cancer Paternal Grandfather Leukemia Other Substance use disorder Surgical History Surgical History H/O brain surgery H/O endoscopy History of History of colonoscopy History of surgery of uterus Social History Social History Household Members: Significant Other Housing: House Are you a primary morning caregiver to a significant other at home: No Do you presently have visiting nurse or other home services: No Alcohol intake: unknown Patient Tobacco Use Status: Former Tobacco user Tobacco use type: Cigarette Smoked in Last 30 Days: No e-Cigarette/Vaping Use: Never Used Use of substances other than those prescribed or required for medical reasons: No Are you DNR?: No Advance Directives: No Advance Directives Information Provided: Yes Advance Directives Date on File: 04/09/21 service: No 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al status: employed and disabled 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 Cognitive needs: No Hearing needs: No Vision needs: Yes Meds Allergies Allergy/AdvReac Type Severity Reaction Status Date / Time NSAIDS (Non-Steroidal Allergy Severe THROAT Verified 07/18/22 12:05 Anti-Inflamma SWELLING [NSAIDS (NON-STEROIDAL ANTI-INFLAMMA] niacin Allergy Intermediate skin Verified 07/18/22 12:05 [Niaspan Extended-Release] blisters tramadol Allergy Intermediate seizures Verified 07/18/22 12:05 barley [BARLEY] Allergy Unknown UNKNOWN Verified 07/18/22 12:05 fluticasone [Advair Diskus] Allergy Unknown Shortness Verified 07/18/22 12:05 of Breath ibuprofen Allergy Unknown Swelling Verified 07/18/22 12:05 naratriptan Allergy Unknown unknown Verified 07/18/22 12:05 Penicillins [PENICILLINS] Allergy Unknown Unknown Verified 07/18/22 12:05 sumatriptan Allergy Unknown unknown Verified 07/18/22 12:05 trazodone [TRAZODONE] Allergy Unknown UNKNOWN Verified 07/18/22 12:05 Home Medications Medication Instructions Recorded Confirmed Last Taken Type omalizumab 150 mg/mL subcutaneous 300 mg subcut Q4W 04/09/21 07/18/22 Unknown History syringe (Xolair) montelukast 10 mg tablet 10 mg PO DAILY 04/16/22 07/18/22 Unknown History Exam Exam Date and Time: July 17, 2022 0948 Height,Weight and Vital Signs: Height 5 ft 5 in Weight 97.976 kg Pertinent Lab Results Pertinent Lab Results: Laboratory Tests 05/08/22 05/08/22 13:22 13:22 WBC 10.0 Hgb 12.4 Hct 38.2 Plt Count 260 D Sodium 138 Potassium 3.8 Chloride 109 H Carbon Dioxide 22 BUN 11 Creatinine 0.64 Narrative Narrative: ECHO 05/2022 Conclusions: - 1. Normal LV systolic function with mild LVH with impaired ? ? relaxation filling pattern ? 2. Normal cardiac valvular Doppler ? 3. Normal RV systolic pressure ? 4. No gross pericardial effusion? EKG 04/2022 Vent. Rate : 084 BPM ? ? Atrial Rate : 084 BPM ?? P-R Int : 152 ms? QRS Dur : 082 ms ? ? QT Int : 364 ms ? ? ? P-R-T Axes : 032 -03 017 degrees ?? QTc Int : 430 ms ? Normal sinus rhythm Possible Left atrial enlargement Nonspecific ST abnormality Abnormal ECG When compared with ECG of 26-APR-2022 17:16, Criteria for Septal infarct are no longer Present Assessment and Plan Assessment Anesthesia Assessment: Chart Reviewed Documented by User: Hailey Montana MD 07/18/22 14:14 PMFSH Active Problems Active Problems: All Active Problems (Updated 07/08/22 @ 13:16 by Myke Zaman MD) PFO (patent foramen ovale) (Acute) Chronic idiopathic constipation (Acute) Personal history of atrial septal defect (Acute) Shortness of breath (Acute) Abnormal EKG (Acute) Community acquired pneumonia (Acute) Hospital discharge follow-up (Acute) Chronic idiopathic constipation (Acute) Pre-op examination (Acute) Influenza A H1N1 infection (Acute) Chronic vertigo (Acute) Elevated fasting blood sugar (Acute) Abnormal mammogram of right breast (Acute) Encounter for routine gynecological examination (Acute) Morbid obesity due to excess calories (Acute) Knee pain, right (Acute) LFT elevation (Acute) Encounter for general adult medical examination with abnormal findings (Acute) Sinusitis (Acute) Respiratory tract congestion with cough (Acute) Hospital discharge follow-up (Acute) Post-COVID syndrome (Acute) Memory changes (Acute) GERD (gastroesophageal reflux disease) (Acute) Abdominal bloating (Acute) Nausea and vomiting (Acute) Postmenopausal bleeding (Acute) Stool incontinence (Acute) Hypothyroidism (Acute) Immunizations incomplete (Acute) Severe persistent allergic asthma (Acute) Environmental allergies (Acute) Shoulder pain, right (Acute) Sciatica, left side (Acute) Anemia (Acute) Shoulder pain (Acute) Impingement syndrome of right shoulder (Acute) Iron deficiency anemia (Acute) Colon cancer screening (Acute) Bleeding hemorrhoids (Acute) Chronic sinusitis (Acute) Other specified hypothyroidism (Acute) COVID-19 (Acute) Tracheobronchitis (Acute) Past Medical History Medical History Abnormal angiogram of head Anemia Aneurysm Asthma COVID-19 GERD (gastroesophageal reflux disease) Thyroid disease Family History Family History Father Diabetes Arthritis Diverticulitis Leukemia Mental health disorder Lung cancer Mother Anemia Arthritis Colon polyps Myocardial infarction Brother Crohn's disease Testicular cancer Brother Cancer Paternal Grandfather Leukemia Other Substance use disorder Family history of problems with anesthesia: No Surgical History Surgical History H/O brain surgery H/O endoscopy History of History of colonoscopy History of surgery of uterus History of Problems with Anesthesia: No Social History Social History Household Members: Significant Other Housing: House Are you a primary morning caregiver to a significant other at home: No Do you presently have visiting nurse or other home services: No Alcohol intake: unknown Patient Tobacco Use Status: Former Tobacco user Tobacco use type: Cigarette Smoked in Last 30 Days: No e-Cigarette/Vaping Use: Never Used Use of substances other than those prescribed or required for medical reasons: No Are you DNR?: No Advance Directives: No Advance Directives Information Provided: Yes Advance Directives Date on File: 04/09/21 service: No 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al status: employed and disabled 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 Cognitive needs: No Hearing needs: No Vision needs: Yes Meds Allergies Allergy/AdvReac Type Severity Reaction Status Date / Time NSAIDS (Non-Steroidal Allergy Severe THROAT Verified 07/18/22 12:05 Anti-Inflamma SWELLING [NSAIDS (NON-STEROIDAL ANTI-INFLAMMA] niacin Allergy Intermediate skin Verified 07/18/22 12:05 [Niaspan Extended-Release] blisters tramadol Allergy Intermediate seizures Verified 07/18/22 12:05 barley [BARLEY] Allergy Unknown UNKNOWN Verified 07/18/22 12:05 fluticasone [Advair Diskus] Allergy Unknown Shortness Verified 07/18/22 12:05 of Breath ibuprofen Allergy Unknown Swelling Verified 07/18/22 12:05 naratriptan Allergy Unknown unknown Verified 07/18/22 12:05 Penicillins [PENICILLINS] Allergy Unknown Unknown Verified 07/18/22 12:05 sumatriptan Allergy Unknown unknown Verified 07/18/22 12:05 trazodone [TRAZODONE] Allergy Unknown UNKNOWN Verified 07/18/22 12:05 Home Medications Medication Instructions Recorded Confirmed Last Taken Type omalizumab 150 mg/mL subcutaneous 300 mg subcut Q4W 04/09/21 07/18/22 Unknown History syringe (Xolair) montelukast 10 mg tablet 10 mg PO DAILY 04/16/22 07/18/22 Unknown History Exam Height,Weight and Vital Signs: Height 5 ft 5 in Weight 97.976 kg Vital Signs Temp Pulse Resp BP Pulse Ox O2 Del Method 97.1 F 69 16 157/70 H 97 Room Air 07/18/22 12:17 07/18/22 12:17 07/18/22 12:17 07/18/22 12:17 07/18/22 12:17 07/18/22 12:17 Airway Mallampati Class: II TM Dist: >3cm Neck ROM: Full (but some achiness) Denture: Upper and Lower Heart: RRR Lungs: CTAB Assessment and Plan Assessment Anesthesia Assessment: Anesthesia Plan Discussed Final Anesthetic Review Family History of Problems with Anesthesia: No History of Problems with Anesthesia: No NPO: Yes ASA Class: III Final Preanesthetic Review: No Changes in Pt Med Stat, Meds/Allgs Chart Reviewed, Consent Obtained/Reviewed and Anes Risks/Benef Reviewed Patient Risk: Intermediate Procedure Risk: Low Assessment/Block/Sedation in SS: Assess/Block/Sedation-SS Anesthetic Plan Anesthetic Plan: MAC: Disposition: Standard PACU
[2022-07-18 12:09] VITALS: BMI 34.9
[2022-07-18 12:17] VITALS: BP 157/70; PULSE 69; RESP 16; TEMP 36.2; O2SAT 97
--- NOTE | 2022-07-18 12:35 | MHC.SHP ---
Pre-Procedural Eval Section A Date of Service: 07/18/22 The patient is an INPATIENT: No Changes since office visit: Yes Patient answered all questions; No Cold of Flu in the past 2 weeks, No New Medical Problems and No Changes in Medication The History & Physical has been completed within 30 days and I have reviewed it.: Yes Section B Chief Complaint: Patent foramen ovale Allergies: Allergies Allergy/AdvReac Type Severity Reaction Status Date / Time NSAIDS (Non-Steroidal Allergy Severe THROAT Verified 07/18/22 12:05 Anti-Inflamma SWELLING [NSAIDS (NON-STEROIDAL ANTI-INFLAMMA] niacin Allergy Intermediate skin Verified 07/18/22 12:05 [Niaspan Extended-Release] blisters tramadol Allergy Intermediate seizures Verified 07/18/22 12:05 barley [BARLEY] Allergy Unknown UNKNOWN Verified 07/18/22 12:05 fluticasone [Advair Diskus] Allergy Unknown Shortness Verified 07/18/22 12:05 of Breath ibuprofen Allergy Unknown Swelling Verified 07/18/22 12:05 naratriptan Allergy Unknown unknown Verified 07/18/22 12:05 Penicillins [PENICILLINS] Allergy Unknown Unknown Verified 07/18/22 12:05 sumatriptan Allergy Unknown unknown Verified 07/18/22 12:05 trazodone [TRAZODONE] Allergy Unknown UNKNOWN Verified 07/18/22 12:05 Plan I have reviewed the history and physical and performed a pertinent physical examination on my patient. No changes have occurred unless specified. Time Spent With Patient Time: Total time managing care of this patient today ____ minutes.
--- NOTE | 2022-07-18 13:00 | CA_ITS ---
Transesophageal Echocardiogram Patient (Last, First, Middle): Berenice Shepard M Gender: Female Date of : 1970 Age: 52 Procedure Date: 07/18/2022 Procedure Type: Transesophageal Echocardiogram Location: [facility] Height: 165. cm Weight: 99. kg BSA: 2.05 m2 Heart Rate: bpm Communications Project Manager: TO Referring MD: Myke Zaman MD Manager Of Photography: Myke Zaman MD Symptoms: Evaluate for intracardiac shunting Conclusion: ??? 1. Normal LV systolic and diastolic function 2. Small tunnels PFO with evidence of color Doppler flow across PFO at rest from left to right and with saline contrast after Valsalva showing small [id number] reversal 3. No intracardiac masses, thrombi, vegetations 4. Mild mitral regurgitation 5. Mild atherosclerotic changes noted in descending thoracic an arch of the aorta 6. No pericardial effusion Findings Procedure Information Consent was obtained prior to the procedure. Pre LAN oral cavity was checked and revealed mild overcrowding. The adult 3D probe was passed with no difficulty. Left Ventricle Normal left ventricular size, thickness, and systolic function. The visually estimated ejection fraction is between 60-65%. Spectral Doppler is indicative of a normal filling pattern. Right Ventricle Normal right ventricular cavity size and systolic function. Atria The left atrium is normal in size. There is lipomatous hypertrophy of the interatrial septum. Contrast study for right to left shunting is negative. Contrast study for right to left shunting is mildly positive with Valsalva maneuver. Patent foramen ovale detected using by color Doppler and contrast. There is evidence of a patent foramen ovale with bidirectional shunting. No evidence of an atrial septal closure device. No evidence of an atrial septal patch. There is no evidence of thrombus or mass in the left atrium. the left upper, left lower, right upper and right lower pulmonary vein draining normally into the left atrium. The left atrial appendage is free of any thrombus or masses. The right atrium is normal in size. There is no evidence of thrombus or mass in the right atrium. the IVC and SVC drain normally into the right atrium. Prominent eustachian valve noted. Aortic Valve Normal aortic valve structure and function. There is no aortic valve stenosis. There is no evidence of a mass on the aortic valve. There is no aortic valve regurgitation. Mitral Valve There is mild anterior and posterior mitral leaflet thickening. There is mild mitral valve regurgitation. There is no mitral valve stenosis. There is no mass noted on the mitral valve. Pulmonic Valve The pulmonic valve is likely normal. There is trace pulmonic valve regurgitation. Tricuspid Valve Normal tricuspid valve structure. There is mild tricuspid valve regurgitation. There is no evidence of a mass on the tricuspid valve. Great Vessels All visible segments of the aorta are normal in size. Small plaque is seen in the arch and descending thoracic aorta. The visualized portions of the pulmonary artery and branches are normal. Venous The inferior vena cava is normal in size and collapses greater than 50% with inspiration. Pericardium/Pleural There is no evidence of pericardial effusion. Prior Study Comparison No prior study available for comparison. Measurements Mitral Valve MV Pk E: 0.77 MV PK A: 0.82 MV Decel Time: 236.00 E/A: 0.90 E'Lateral: 10.40 E'Medial: 7.00 E/E' Med: 11.00 E/E' Lat: 7.40 PHT: 69.00 MVA PHT: 3.19 Decel Coles: 3.26 Diastolic Function MV Pk E: 0.77 MV Pk A: 0.82 E/A: 0.90 E'Medial: 7.00 E/E' Med: 11.00 E' Laterial: 10.40 E/E' Lat: 7.40 Tricuspid Valve TR Pk Sorin: 1.84 TR Pk Grad: 14.00 Updated by Myke Zaman on 02:31 PM with Status of Final Myke Zaman MD electronically signed on 07/19/2022 2:31:20 PM with status of Final
[2022-07-18] MEDS: Lactated Ringers 1,000 ML 100 ML IVCONT (13:03)
[2022-07-18 14:09] VITALS: BP 118/61; PULSE 71; RESP 16; TEMP 36.1; O2SAT 97
[2022-07-18 14:34] VITALS: BP 152/90; PULSE 65; RESP 18; TEMP 36.2; O2SAT 99
== END 2022-07-18 15:05 | disposition home or self-care (01) ==
PROVIDERS: PCP Internal Medicine; Visit Provider Internal Medicine Cardiovascular Disease
PROC: (CPT 93312; principal; 2022-07-18 13:00)
DX: Q21.12 Patent foramen ovale (principal); I34.0 Nonrheumatic mitral (valve) insufficiency; Z86.79 Personal history of other diseases of the circulatory system; D64.9 Anemia, unspecified; E03.9 Hypothyroidism, unspecified; J45.909 Unspecified asthma, uncomplicated; Z79.51 Long term (current) use of inhaled steroids; Z79.899 Other long term (current) drug therapy; Z88.0 Allergy status to penicillin; Z88.8 Allergy status to other drugs, medicaments and biological substances; Z98.890 Other specified postprocedural states; Z87.891 Personal history of nicotine dependence; Z86.16 Personal history of COVID-19
CPT/HCPCS: 93312; J2250; J3010

== ENCOUNTER 2022-08-14 13:33 | Outpatient (REF) | payer OTHER, SELFPAY | END 2022-08-14 13:34 | disposition home or self-care (01) | LOC: HO.MDS 13:33 | PROVIDERS: Visit Provider Internal Medicine Pulmonary Disease | DX: J45.50 Severe persistent asthma, uncomplicated (principal) | CPT/HCPCS: 96372; J2357 ==

== ENCOUNTER 2022-09-03 15:18 | Emergency (ER) | payer OTHER, MEDICAID, SELFPAY ==
--- NOTE | ~2022-09-03 | CT_ITS ---
EXAMINATION: CT HEAD WITHOUT CONTRAST CLINICAL INFORMATION: Occipital headache and syncope. COMPARISON: CT scan of the head 03/12/2021. TECHNIQUE: Contiguous axial imaging was performed from the skull base to vertex without intravenous administration of contrast. This CT examination was performed using dose optimization techniques as appropriate, variously including the following: *Automated exposure control *Adjustment of mA and/or kV according to patient size (this includes techniques or standardized protocols for targeted exams where dose is matched to indication/reason for exam; i.e. extremities or head) *Use of iterative reconstruction technique DLP: 1577 mGy-cm FINDINGS: There is relatively extensive streak artifact related to an embolization coil within the left parasellar region. Adjoining anatomy is therefore not well assessed on this examination. There is no acute intracranial hemorrhage or abnormal extra axial collection. No intracranial mass effect or midline shift. Lateral and third ventricles are normal. No hydroceles. Clark-white matter differentiation is grossly preserved and there is no evidence of acute territorial infarct. The calvarium and skull base are intact. Mastoid air cells and middle ear cavities are well aerated. No active paranasal sinus disease. CT/CT head/brain wo IV con IMPRESSION: There is relatively extensive streak artifact related to an embolization coil within the left parasellar region. Otherwise unremarkable examination. No evidence of acute territorial infarct or hemorrhage.
--- NOTE | ~2022-09-03 | CT_ITS ---
EXAMINATION: CT abdomen pelvis wo IV con CLINICAL INFORMATION: Reason for Exam LLQ pain, diarrhea COMPARISON: Prior CT scan from 2018 TECHNIQUE: Multidetector volumetric imaging was performed from the superior aspect of the liver through the pubic symphysis , noncontrasted study. Sagittal and coronal reformatted images were obtained on the technologist's workstation. This CT examination was performed using dose optimization techniques as appropriate, variously including the following: *Automated exposure control *Adjustment of mA and/or kV according to patient size (this includes techniques or standardized protocols for targeted exams where dose is matched to indication/reason for exam; i.e. extremities or head) *Use of iterative reconstruction technique DLP: 991 mGy-cm FINDINGS: LOWER THORAX: Included lung bases are clear. HEPATOBILIARY: No focal hepatic lesions. No biliary ductal dilatation. GALLBLADDER: Low-attenuation focal area in the gallbladder probably cholesterol stones. SPLEEN: Spleen borderline enlarged 13.9 x 8 cm. PANCREAS: No focal mass or ductal dilatation. STOMACH AND GASTROINTESTINAL TRACT: There is a small hiatal hernia the GE junction. Stomach is partially collapsed nondistended fluid contents. Very subtle wall thickening edema and minimal pericolic stranding around the sigmoid colon could be a sequela of colitis. Difficult to visualize due to lack of oral or IV contrast. No evidence of obstructing mass. There are few sigmoid diverticula. No evidence of diverticulitis. No CT evidence of appendicitis. ADRENALS: No adrenal nodules. KIDNEYS/URETERS: There is a 2 mm nonobstructing stone upper calyx left kidney. No hydronephrosis. Perinephric fat are clear. URINARY BLADDER: Partially decompressed. PELVIC VISCERA: There is a trace amount of free fluid in the pelvis uncertain etiology. PERITONEUM: There is no free air. LYMPH NODES: No lymphadenopathy. VASCULAR:Abdominal aorta normal in size, no aneurysm found. BONES, ABDOMINAL WALL AND SOFT TISSUES: Age-appropriate changes of the spine and skeletal system, no destructive osteolytic or osteosclerotic bone lesion found CT/CT abdomen pelvis wo IV con IMPRESSION: * Very subtle wall thickening edema and minimal pericolic stranding around the sigmoid colon could be a sequela of colitis. Difficult to visualize due to lack of oral or IV contrast. No evidence of obstructing mass. There are few sigmoid diverticula. Clinical correlation and follow-up recommended. * Trace amount of free fluid in the pelvis uncertain etiology. * Low-attenuation focal area in the gallbladder probably cholesterol stones. * Spleen borderline enlarged 13.9 cm. * Small hiatal hernia. * Nonobstructing 2 mm stone left kidney.
[2022-09-03 15:40] VITALS: BP 144/82; PULSE 95; RESP 18; TEMP 36.5; O2SAT 97; BMI 36.3
--- NOTE | 2022-09-03 15:42 | ECG_ITS ---
Test Reason : syncope Blood Pressure : / mmHG Vent. Rate : 079 BPM Atrial Rate : 079 BPM P-R Int : 162 ms QRS Dur : 084 ms QT Int : 386 ms P-R-T Axes : 033 -08 018 degrees QTc Int : 442 ms Normal sinus rhythm Cannot rule out Anterior infarct , age undetermined - could be related to body habitus and lead placement Abnormal ECG When compared with ECG of 08-MAY-2022 13:13, No significant change was found Referred By: Kacie Andino Electronically Signed By:RACHEL AIKEN
--- NOTE | 2022-09-03 15:44 | ED.GENADULT ---
HPI - General Adult General Chief complaint: General Medical Stated complaint: sharp pain in head during bowel movement,PassedOut Time Seen by Provider: 09/03/22 21:40 Source: patient, RN notes reviewed and old records reviewed Mode of arrival: ambulatory Limitations: no limitations History of Present Illness HPI narrative: 52-year-old female with past medical history significant for GERD, hypothyroidism, asthma, iron-deficiency anemia, brain aneurysm status post coiling, obesity, migraine headaches, PFO presents for evaluation of headaches. patient reports that she has had 3 episodes of nonbloody diarrhea with abdominal pain since yesterday. She reports that on each occasion while having a bowel movement she had a posterior headache the headache is only present when she is having the bowel movement and resolved within a few minutes patient reports that today while having a bowel movement she had a headache and then I passed out at work. She is unsure of how long she was out currently she has no complaints she never had any chest pain, shortness of breath, palpitations no fevers, chills she was treated with Macrobid 100 mg b.i.d. x6 doses last week for UTI no other antibiotic use or recent travel Related Data Home Medications Medication Instructions Recorded Confirmed omalizumab 150 mg/mL subcutaneous 300 mg subcut Q4W 04/09/21 08/27/22 syringe (Xolair) montelukast 10 mg tablet 10 mg PO DAILY 04/16/22 08/27/22 Previous Rx's Medication Instructions Recorded ProAir HFA 90 mcg/actuation 2 puff inhalation Q4H #8.5 grams 02/19/22 aerosol inhaler (albuterol sulfate) levothyroxine 150 mcg tablet 150 mcg PO QAM 90 days #90 tabs 02/19/22 fluticasone propionate 50 2 spray intranasal BID 30 days #16 08/13/22 mcg/actuation nasal grams spray,suspension (Flonase Allergy Relief) loratadine 10 mg tablet (Allergy 10 mg PO DAILY #90 tabs 08/13/22 Relief (loratadine)) nitrofurantoin 100 mg PO Q12H 3 days #6 caps 08/27/22 monohydrate/macrocrystals 100 mg capsule (Macrobid) ciprofloxacin HCl 500 mg tablet 500 mg PO BID #14 tabs 09/03/22 metronidazole 500 mg tablet 500 mg PO BID #14 tabs 09/03/22 Allergies Allergy/AdvReac Type Severity Reaction Status Date / Time NSAIDS (Non-Steroidal Allergy Severe THROAT Verified 08/27/22 14:05 Anti-Inflamma SWELLING [NSAIDS (NON-STEROIDAL ANTI-INFLAMMA] niacin Allergy Intermediate skin Verified 08/27/22 14:05 [Niaspan Extended-Release] blisters tramadol Allergy Intermediate seizures Verified 08/27/22 14:05 barley [BARLEY] Allergy Unknown UNKNOWN Verified 08/27/22 14:05 fluticasone [Advair Diskus] Allergy Unknown Shortness Verified 08/27/22 14:05 of Breath ibuprofen Allergy Unknown Swelling Verified 08/27/22 14:05 naratriptan Allergy Unknown unknown Verified 08/27/22 14:05 Penicillins [PENICILLINS] Allergy Unknown Unknown Verified 08/27/22 14:05 sumatriptan Allergy Unknown unknown Verified 08/27/22 14:05 trazodone [TRAZODONE] Allergy Unknown UNKNOWN Verified 08/27/22 14:05 Review of Systems Constitutional: Constitutional: Denies body ache(s), Denies chills and Denies fever(s) Eyes: Eyes: Denies blurry vision ENT: Denies vertigo Cardiovascular: Cardiovascular: Denies chest pain, Reports syncope, Denies palpitations and Denies dyspnea Respiratory: Respiratory: Denies chest congestion, Denies cough and Denies dyspnea Gastrointestinal: Gastrointestinal: Reports abdominal pain, Denies melena, Denies hematochezia, Reports diarrhea, Reports loose stools, Denies nausea and Denies vomiting Genitourinary: Genitourinary: Denies dysuria Musculoskeletal: Musculoskeletal: Denies back pain Neurologic: Denies vertigo and Reports syncope Endocrine: Endocrine: Denies palpitations [facility] Past Medical History Medical History Abnormal angiogram of head Anemia Aneurysm Asthma COVID-19 GERD (gastroesophageal reflux disease) Thyroid disease Surgical History H/O brain surgery H/O endoscopy History of History of colonoscopy History of surgery of uterus Family History Family History Father Diabetes Arthritis Diverticulitis Leukemia Mental health disorder Lung cancer Mother Anemia Arthritis Colon polyps Myocardial infarction Brother Crohn's disease Testicular cancer Brother Cancer Paternal Grandfather Leukemia Other Substance use disorder Social History Social History Household Members: Significant Other Housing: House Are you a primary patient care assistant to a significant other at home: No Do you presently have visiting nurse or other home services: No Alcohol intake: never Patient Tobacco Use Status: Former Tobacco user Tobacco use type: Cigarette Smoked in Last 30 Days: No e-Cigarette/Vaping Use: Never Used Use of substances other than those prescribed or required for medical reasons: No Any prior treatment program specific to substance use: No Advance Directives: Yes Advance Directives on File: Yes Advance Directives Date on File: 04/09/21 service: No 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al status: employed and disabled 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 Cognitive needs: No Hearing needs: No Vision needs: Yes Physical Exam ED Vital Signs: Vital Signs - 24 hr 09/03/22 15:40 09/03/22 21:23 09/03/22 21:26 Temperature 97.7 F 97.7 F Pulse Rate 95 85 86 Respiratory Rate 18 18 Blood Pressure 144/82 H 145/66 H 124/80 Pulse Oximetry 97 97 Oxygen Delivery Method Room Air Room Air 09/03/22 21:24 09/03/22 21:25 Temperature Pulse Rate 79 85 Respiratory Rate Blood Pressure 130/76 Pulse Oximetry Oxygen Delivery Method BMI result Body Mass Index 36.3 Const General: healthy appearing, comfortable, no acute distress, alert and awake Nutritional Appearance: well nourished Orientation/consciousness: patient oriented x3 HENMT Head: Yes normocephalic and Yes atraumatic Throat: Yes posterior oropharynx normal Eyes Eyelids: Yes eyelids normal Conjunctivae: conjunctivae normal Sclerae: sclerae normal Corneas: corneas normal Pupils: Equal, round and reactive pupils present EOM: EOMs intact bilaterally Neck Neck: Yes full ROM Resp Effort & Inspection: normal respiratory effort, able to speak in complete sentences, no audible wheezes and not labored Auscultation: clear to auscultation bilaterally Cardio Rate: regular rate Rhythm: regular rhythm GI Inspection: No distended Palpation (GI): Soft to palpation, not firm, Tenderness to palpation present (GI) in the LLQ and suprapubicly; not in the RLQ, not in the LUQ and not in the RUQ, no guarding and not rigid Auscultation: normoactive bowel sounds Skin General skin exam: no rashes or lesions noted and elasticity normal Neuro General: patient oriented x3 Cranial nerves: Yes CN's II-XII intact bilaterally, Yes Equal, round and reactive pupils present and Yes Bilaterally intact EOM present Cognition (Neuro): normal cognition Extrem Other: Moving all extremities well without any obvious deformities Course Course Course Narrative: RME - 52 yo female with history of cerebral aneurysm s/p coiling 2002, migraines CAP, constipation, PFO, iron deficiency anemia, asthma who presents to the ER for evaluation of 2 days of severe occipital headache when having a BM. She reports LLQ pain and diarrhea the last 2 days as well. She thinks she passed out at work today while on the toilet. She had a recent UTI, no longer having urinary symptoms. VSS in triage and she appears well. Plan: CT head, CT abd/pelvis, labs, EKG Medical Decision Making Medical Decision Making [facility] Narrative: 52-year-old female presents for evaluation of multiple complaints including posterior headache only when having bowel movements. her bowel movements are nonbloody, she does have left lower quadrant abdominal pain with diarrhea. She has CT scan of the brain within the show any evidence of acute intracranial hemorrhage. Her story is not consistent with intracranial hemorrhage, her neurologic exam is benign. Currently the patient has no complaints. She is somewhat tender in the left lower quadrant without guarding. Her CT scan and pelvis shows possible colitis. We will treat her colitis and she will follow-up with her neurologist. She also had a cardiac workup that included a troponin that was negative, EKG that was nonischemic and unchanged from April of this year. Differential Diagnosis Acute headache Vasovagal syncope Colitis Diverticulitis subarachnoid hemorrhage migraine headache Complex migraine Lab Data [facility] Lab Attestation statement: I reviewed the patient's lab results. No significant lab abnormality 09/03/22 21:17 09/03/22 21:17 Labs: Lab Results 09/03/22 09/03/22 09/03/22 Range/Units 21:17 21:17 21:17 WBC 8.5 (4.8-10.8) X10*3/uL RBC 5.24 (4.20-5.50) X10*6/uL Hgb 13.4 (12.0-16.0) g/dl Hct 40.9 (37.0-47.0) % MCV 78.1 L (80.0-98.0) fL MCH 25.6 L (27.0-33.0) pg MCHC 32.8 (31.0-35.0) g/dl RDW 13.6 (11.0-16.0) % Plt Count 232 (160-400) X10*3/uL MPV 10.7 (9.4-12.3) fL Immature Gran % (Auto) 0.1 (0.0-0.4) % Neut % (Auto) 61.8 (45-73) % Lymph % (Auto) 27.8 (20-40) % Mason % (Auto) 6.5 (2-11) % Eos % (Auto) 3.1 (0-4) % Baso % (Auto) 0.7 (0-2) % Lymph # (Auto) 2.4 (1.2-4.9) X10*3/uL Mason # (Auto) 0.6 (0.1-1.2) X10*3/uL Eos # (Auto) 0.3 (0.0-0.4) X10*3/uL Baso # (Auto) 0.1 (0.0-0.2) X10*3/uL Abs Immat Gran (auto) 0.01 (0.00-0.03) X10*3/uL Absolute Neuts (auto) 5.2 (2.0-8.3) x10*3/uL Absolute Nucleated RBC 0.000 (0.0-0.012) X10*3/uL Nucleated RBC % (auto) 0.0 (0.0-0.2) /100WBC Sodium 144 (135-145) mmol/L Potassium 3.6 (3.3-5.1) mmol/L Chloride 112 H (96-108) mmol/L Carbon Dioxide 21 L (22-29) mmol/L Anion Gap 15 (12-20) BUN 9 (9-16) mg/dL Creatinine 0.68 (0.5-1.4) mg/dL Estim Creat Clear Calc 113.9 Estimated GFR > 60 Random Glucose 126 H (60-115) mg/dL Calcium 9.1 (8.4-10.2) mg/dL Magnesium 2.0 (1.6-2.6) mg/dL Total Bilirubin 0.1 (0.0-1.0) mg/dL Direct Bilirubin < 0.2 (0.0-0.5) mg/dL AST 14 (5-31) U/L ALT 18 (0-31) U/L Alkaline Phosphatase 129 H (39-117) U/L Total Protein 5.8 L (6.5-8.0) g/dL Albumin 3.8 (3.5-5.0) g/dL Lipase 18 (8-78) U/L Ethyl Alcohol < 10 mg/dL Independent Interpretation I performed an independent interpretation of an: EKG Radiology Impression Discussion of test interpretation with radiology: I have reviewed the radiologist's reading. ( coil present but otherwise unremarkable brain CT. CT abdomen pelvis shows possible colitis with trace free fluid in the pelvis.) Discharge Plan Discharge Clinical Impression: Colitis, Syncope, Intermittent headache Patient Disposition: Home, Self-Care Instructions: Syncope (ED) Additional Instructions: your CT scan did not show any evidence of ruptured aneurysm, intracranial hemorrhage or anything else to explain your headaches your CT scan showed possible colitis in the left lower abdomen or your pain is for this reason, we will treat with both antibiotics twice daily for 7 days your blood work was reassuring, as was your EKG you likely experienced a vasovagal syncope you may follow-up with her primary doctor as well as your neurologist Prescriptions: New metronidazole 500 mg tablet 500 mg PO BID Qty: 14 0RF ciprofloxacin HCl 500 mg tablet 500 mg PO BID Qty: 14 0RF No Action albuterol sulfate [ProAir HFA] 90 mcg/actuation HFA aerosol inhaler 2 puff inhalation Q4H Qty: 8.5 0RF levothyroxine 150 mcg tablet 150 mcg PO QAM 90 Days Qty: 90 3RF loratadine [Allergy Relief (loratadine)] 10 mg tablet 10 mg PO DAILY Qty: 90 0RF fluticasone propionate [Flonase Allergy Relief] 50 mcg/actuation spray,suspension 2 spray intranasal BID 30 Days Qty: 16 3RF Rx Instructions: administer into each nostril Xolair 150 mg/mL Syringe 300 mg SUBCUT Q4W nitrofurantoin monohyd/m-cryst [Macrobid] 100 mg capsule 100 mg PO Q12H 3 Days Qty: 6 0RF Rx Instructions: must administer with a meal/food montelukast 10 mg tablet 10 mg PO DAILY
[2022-09-03 21:21] LABS: MANUAL DIFF FLAG NO
[2022-09-03 21:22] LABS: Basophils Absolute Auto 0.1 X10*3/uL (0.0-0.2); Basophils Percent Auto 0.7 % (0-2); Eosinophils Absolute Auto 0.3 X10*3/uL (0.0-0.4); Eosinophils Percent Auto 3.1 % (0-4); Hematocrit 40.9 % (37.0-47.0); Hemoglobin 13.4 g/dl (12.0-16.0); Imm Gran Abs Auto 0.01 X10*3/uL (0.00-0.03); Imm Gran Pct Auto 0.1 % (0.0-0.4); Lymphocytes Absolute Auto 2.4 X10*3/uL (1.2-4.9); Lymphocytes Percent Auto 27.8 % (20-40); Mean Corpuscular HGB Conc 32.8 g/dl (31.0-35.0); Mean Corpuscular Hemoglobin 25.6 pg (27.0-33.0); Mean Corpuscular Volume 78.1 fL (80.0-98.0); Mean Platelet Volume 10.7 fL (9.4-12.3); Monocytes Absolute Auto 0.6 X10*3/uL (0.1-1.2); Monocytes Percent Auto 6.5 % (2-11); Neutrophils Absolute Auto 5.2 x10*3/uL (2.0-8.3); Neutrophils Percent Auto 61.8 % (45-73); Platelet Count 232 X10*3/uL (160-400); Red Blood Count 5.24 X10*6/uL (4.20-5.50); Red Cell Distribution Width 13.6 % (11.0-16.0); White Blood Count 8.5 X10*3/uL (4.8-10.8)
[2022-09-03 21:23] VITALS: BP 145/66; PULSE 85
[2022-09-03 21:24] VITALS: BP 130/76; PULSE 79
[2022-09-03 21:25] VITALS: PULSE 85
[2022-09-03 21:26] VITALS: BP 124/80; PULSE 86; RESP 18; TEMP 36.5; O2SAT 97
[2022-09-03 21:42] LABS: Ethanol < 10 mg/dL; Lipase 18 U/L (8-78)
[2022-09-03 21:43] LABS: Alanine Aminotransferase 18 U/L (0-31); Albumin Level 3.8 g/dL (3.5-5.0); Alkaline Phosphatase 129 U/L (39-117); Anion Gap 15 (12-20); Aspartate Amino Transferase 14 U/L (5-31); Bilirubin Direct < 0.2 mg/dL (0.0-0.5); Bilirubin Total 0.1 mg/dL (0.0-1.0); Blood Urea Nitrogen 9 mg/dL (9-16); Calcium 9.1 mg/dL (8.4-10.2); Carbon Dioxide 21 mmol/L (22-29); Chloride 112 mmol/L (96-108); Creatinine Clr Calc Pharmacy 113.9; Estimated Glomerular Filt Rate > 60; Glucose Random 126 mg/dL (60-115); Potassium 3.6 mmol/L (3.3-5.1); Sodium 144 mmol/L (135-145); Total Protein 5.8 g/dL (6.5-8.0)
== END 2022-09-03 22:41 | disposition home or self-care (01) ==
PROVIDERS: Physician Assistant; Emergency Provider Internal Medicine; PCP Internal Medicine
DX: K52.9 Noninfective gastroenteritis and colitis, unspecified (principal); R55 Syncope and collapse; R51.9 Headache, unspecified; R10.32 Left lower quadrant pain; Z79.899 Other long term (current) drug therapy
CPT/HCPCS: 36415; 70450; 74176; 80048; 80076; 80307; 83690; 83735; 85025; 93005; 99284

== ENCOUNTER 2022-09-11 09:28 | Outpatient (REF) | payer OTHER, MEDICAID, SELFPAY | END 2022-09-11 09:29 | disposition home or self-care (01) | LOC: HO.MDS 09:28 | PROVIDERS: Visit Provider Internal Medicine Pulmonary Disease | DX: J45.50 Severe persistent asthma, uncomplicated (principal) | CPT/HCPCS: 96372; J2357 ==

== ENCOUNTER 2022-10-09 09:31 | Outpatient (REF) | payer OTHER, MEDICAID, SELFPAY | END 2022-10-09 09:32 | disposition home or self-care (01) | LOC: HO.MDS 09:31 | PROVIDERS: Visit Provider Internal Medicine Pulmonary Disease | DX: J45.50 Severe persistent asthma, uncomplicated (principal) | CPT/HCPCS: 96372; J2357 ==

== ENCOUNTER → 2022-10-14 14:34 | Outpatient (BNVA) | payer OTHER, MEDICAID, SELFPAY | PROVIDERS: PCP Internal Medicine; Visit Provider Internal Medicine Pulmonary Disease ==

== ENCOUNTER → 2022-10-16 13:35 | Outpatient (BNVA) | payer OTHER, MEDICAID, SELFPAY | PROVIDERS: PCP Internal Medicine; Visit Provider Nurse Practitioner ==

== ENCOUNTER 2022-11-06 09:02 | Outpatient (REF) | payer OTHER, SELFPAY | END 2022-11-06 09:03 | disposition home or self-care (01) | LOC: HO.MDS 09:02 | PROVIDERS: Visit Provider Internal Medicine Pulmonary Disease | DX: J45.50 Severe persistent asthma, uncomplicated (principal) | CPT/HCPCS: 96372; J2357 ==

== ENCOUNTER 2022-11-18 13:59 | Outpatient (AMB) | payer OTHER, SELFPAY ==
--- NOTE | 2022-11-18 14:19 | MHC.OFFWIV ---
Intake Vital Signs 11/18/22 14:25 BP 120/8 L Blood Pressure Location Lt brachial Position Sitting Pulse 88 Pulse Source Pulse Oximeter Temp 97.7 F Temp Source Temporal Artery Scan Pulse Oximetry (%) 98 Oxygen Delivery Method Room Air Intake Visit Reasons: EST/face and throat swelling [phone] Intake Note: Patient here for lump on left side of jaw, she states it gets hard to swallow which all started about an hour ago when she keyshawn to eat lunch. Patient Tobacco Use Status: Current everyday Tobacco user Allergies niacin [Niaspan Extended-Release] Allergy (Intermediate, Verified 11/18/22 14:51) skin blisters tramadol Allergy (Intermediate, Verified 11/18/22 14:51) seizures barley [BARLEY] Allergy (Unknown, Verified 11/18/22 14:51) UNKNOWN fluticasone [Advair Diskus] Allergy (Unknown, Verified 11/18/22 14:51) Shortness of Breath ibuprofen Allergy (Unknown, Verified 11/18/22 14:51) Swelling naratriptan Allergy (Unknown, Verified 11/18/22 14:51) unknown Penicillins [PENICILLINS] Allergy (Unknown, Verified 11/18/22 14:51) Unknown sumatriptan Allergy (Unknown, Verified 11/18/22 14:51) unknown trazodone [TRAZODONE] Allergy (Unknown, Verified 11/18/22 14:51) UNKNOWN equate cough drops sugar free Allergy (Mild, Uncoded 11/18/22 14:51) Unknown Medication List - Last Reconciled 11/18/22 by Vernon Rodríguez MD bupropion HCl (Wellbutrin SR) 150 mg PO QAM famotidine 40 mg PO DAILY fluticasone propionate 50 mcg/actuation (Flonase Allergy Relief) 2 sprays intranasal BID 30 days ipratropium-albuterol 0.5 mg-3 mg(2.5 mg base)/3 mL 3 mL inhalation Q4-6H PRN 30 days levothyroxine 150 mcg PO QAM 90 days loratadine 10 mg PO DAILY 30 days omalizumab (Xolair) 150 mg subcut Q4W ProAir HFA 90 mcg/actuation (albuterol sulfate) 2 puffs inhalation Q4H NS Do you need a note to return to daycare/school/sports/work: Yes HPI EST/face and throat swelling [phone] HPI Details 52-year-old female presents to the office for a sick visit. Patient is reporting pain on the left side of her jaw. Symptoms started suddenly while she was chewing on food. Sharp pain on the left side of the face. [facility] Medical History Abnormal angiogram of head Anemia Aneurysm Asthma Colitis COVID-19 GERD (gastroesophageal reflux disease) Thyroid disease Surgical History H/O brain surgery H/O endoscopy History of History of colonoscopy History of surgery of uterus Family History Father Diabetes Arthritis Diverticulitis Leukemia Mental health disorder Lung cancer Mother Anemia Arthritis Colon polyps Myocardial infarction Brother Crohn's disease Testicular cancer Brother Cancer Paternal Grandfather Leukemia Other Substance use disorder Social History Household Members: Significant Other Housing: House Are you a primary special needs child caregiver to a significant other at home: No Do you presently have visiting nurse or other home services: No Alcohol intake: never Patient Tobacco Use Status: Current everyday Tobacco user Tobacco use type: Cigarette e-Cigarette/Vaping Use: Never Used Advance Directives Date on File: 04/09/21 service: No 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al status: employed and disabled 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 Cognitive needs: No Hearing needs: No Vision needs: Yes Physical Exam Vital Signs: Last Vital Signs Temp 97.7 F 11/18/22 14:25 Pulse 88 11/18/22 14:25 BP 120/8 L 11/18/22 14:25 Pulse Ox 98 11/18/22 14:25 Oxygen Delivery Method Room Air 11/18/22 14:25 HEENT Other: Face: Oral cavity is normal. Tenderness over the left TMJ. Assessment & Plan Assessment & Plan (1) TMJ dysfunction: Code(s): M26.609 - Unspecified temporomandibular joint disorder, unspecified side Plan: Meloxicam called in. Note for work given. Coding Level of Care Code Est Pt Level 3 (25284) Diagnoses TMJ dysfunction M26.609
[2022-11-18 14:25] VITALS: BP 120/8; PULSE 88; TEMP 36.5; O2SAT 98
== END 2022-11-18 15:04 | disposition home or self-care (01) ==
PROVIDERS: PCP Internal Medicine; Visit Provider Internal Medicine
DX: M26.609 Unspecified temporomandibular joint disorder, unspecified side (principal)
CPT/HCPCS: 99213

== ENCOUNTER 2022-11-30 21:09 | Emergency (ER) | payer OTHER, MEDICAID, SELFPAY ==
--- NOTE | ~2022-11-30 | CT_ITS ---
EXAMINATION: NONCONTRAST HEAD CT NONCONTRAST CERVICAL SPINE CT INDICATION INFORMATION: Fall COMPARISON: 09/03/2022 TECHNIQUE: Separate noncontrast CT examinations of the head and cervical spine were performed. Coronal and sagittal images were created for each examination at the technologist workstation. This CT examination was performed using dose optimization techniques as appropriate, variously including the following: *Automated exposure control *Adjustment of mA and/or kV according to patient size (this includes techniques or standardized protocols for targeted exams where dose is matched to indication/reason for exam; i.e. extremities or head) *Use of iterative reconstruction technique DLP: 897 mGy-cm FINDINGS: Head: Extensive streak artifact redemonstrated related to embolization coil in the left parasellar region. There is no evidence of acute intracranial hemorrhage or territorial infarction. No abnormal mass effect or midline shift is seen. Clark to white matter differentiation is well preserved. No extra-axial fluid collections are identified. No hydrocephalus. No significant volume loss. There is no abnormal attenuation within the brain parenchyma. No acute osseous or soft tissue abnormality. The mastoid air cells and visualized portions of the paranasal sinuses are well aerated. Cervical spine: There is anatomic alignment of the vertebral bodies and posterior elements. The atlantoaxial and atlantooccipital articulations are intact. Vertebral body heights and intervertebral disc spaces are maintained. No evidence of acute fracture. No prevertebral soft tissue swelling. Visualized portions of the lung apices are unremarkable. The thyroid gland is unremarkable. CT/CT cervical spine wo IV con IMPRESSION: * No acute intracranial bleed or territorial infarction. * No acute fractures of the calvarium or cervical spine.
[2022-11-30 21:27] VITALS: BP 140/90; PULSE 74; O2SAT 96
[2022-11-30 21:32] VITALS: BP 134/65; PULSE 63; RESP 16; TEMP 36.6; O2SAT 96; BMI 35.8
--- NOTE | 2022-11-30 21:36 | ECG_ITS ---
Test Reason : SYNCOPE Blood Pressure : / mmHG Vent. Rate : 055 BPM Atrial Rate : 055 BPM P-R Int : 156 ms QRS Dur : 092 ms QT Int : 444 ms P-R-T Axes : 034 002 023 degrees QTc Int : 424 ms Sinus bradycardia with marked sinus arrhythmia Otherwise normal ECG When compared with ECG of 03-SEP-2022 16:18, No significant change was found Referred By: Generic ED Physician Electronically Signed By:Kd Hernandez
[2022-11-30 21:58] LABS: MANUAL DIFF FLAG NO
[2022-11-30 21:59] LABS: Basophils Absolute Auto 0.1 X10*3/uL (0.0-0.2); Basophils Percent Auto 0.5 % (0-2); Eosinophils Absolute Auto 0.2 X10*3/uL (0.0-0.4); Eosinophils Percent Auto 1.9 % (0-4); Hematocrit 38.5 % (37.0-47.0); Hemoglobin 12.8 g/dl (12.0-16.0); Imm Gran Abs Auto 0.03 X10*3/uL (0.00-0.03); Imm Gran Pct Auto 0.3 % (0.0-0.4); Lymphocytes Absolute Auto 2.8 X10*3/uL (1.2-4.9); Lymphocytes Percent Auto 26.3 % (20-40); Mean Corpuscular HGB Conc 33.2 g/dl (31.0-35.0); Mean Corpuscular Hemoglobin 26.9 pg (27.0-33.0); Mean Corpuscular Volume 80.9 fL (80.0-98.0); Mean Platelet Volume 10.9 fL (9.4-12.3); Monocytes Absolute Auto 0.6 X10*3/uL (0.1-1.2); Monocytes Percent Auto 5.9 % (2-11); Neutrophils Absolute Auto 6.9 x10*3/uL (2.0-8.3); Neutrophils Percent Auto 65.1 % (45-73); Platelet Count 234 X10*3/uL (160-400); Red Blood Count 4.76 X10*6/uL (4.20-5.50); White Blood Count 10.5 X10*3/uL (4.8-10.8)
[2022-11-30 22:05] VITALS: BP 128/77; BP 139/76; PULSE 54; PULSE 55
[2022-11-30 22:07] VITALS: BP 143/86; PULSE 74
[2022-11-30 22:12] LABS: Appearance Urine Clear; Color Urine Yellow; Glucose Urine UA Negative (Negative); Leukocyte Esterase Urine Trace (Negative); Nitrite Urine Negative (Negative); PH 5.5 (5.0-9.0); UMIC TRIGGER UACC YES; Urine Blood Trace (Negative); Urine Ketones Negative (Negative); Urine Protein Negative (Neg-Trace)
[2022-11-30 22:20] LABS: Alanine Aminotransferase 12 U/L (0-31); Albumin Level 3.9 g/dL (3.5-5.0); Alkaline Phosphatase 113 U/L (39-117); Anion Gap 17 (12-20); Aspartate Amino Transferase 13 U/L (5-31); Bilirubin Total 0.2 mg/dL (0.0-1.0); Blood Urea Nitrogen 10 mg/dL (9-16); Calcium 9.2 mg/dL (8.4-10.2); Carbon Dioxide 18 mmol/L (22-29); Chloride 108 mmol/L (96-108); Creatinine Clr Calc Pharmacy 96.1; Estimated Glomerular Filt Rate > 60; Glucose Random 102 mg/dL (60-115); Potassium 3.2 mmol/L (3.3-5.1); Sodium 140 mmol/L (135-145); Total Protein 6.6 g/dL (6.5-8.0)
[2022-11-30 22:31] LABS: Bacteria Urine None Seen (None Seen); Hyaline Casts Urine 0-2 /LPF (0-2); RBC Urine 0-2 /HPF (0-2); Squamous Epithelial Cell Urine 0-2 /HPF (0-2); WBC Urine 0-5 /HPF (0-5)
[2022-11-30 23:17] LABS: Magnesium 2.2 mg/dL (1.6-2.6)
--- NOTE | 2022-11-30 23:19 | ED_ITS ---
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 Patient states that she has had recent food poisoning suspected as she had multiple episodes of diarrhea yesterday but has gradually improved and last episode was At 12:00 O'clock today. She denies any associated fever chills, denies any urinary symptoms or shortness of breath/chest pain/palpitations at baseline. Patient endorses that she takes baby aspirin. Related Data Home Medications Medication Instructions Recorded Confirmed famotidine 20 mg tablet 40 mg PO DAILY 10/16/22 10/29/22 omalizumab 150 mg subcutaneous 150 mg subcut Q4W 10/29/22 10/29/22 solution (Xolair) Previous Rx's Medication Instructions Recorded ProAir HFA 90 mcg/actuation 2 puff inhalation Q4H #8.5 grams 02/19/22 aerosol inhaler (albuterol sulfate) levothyroxine 150 mcg tablet 150 mcg PO QAM 90 days #90 tabs 02/19/22 fluticasone propionate 50 2 spray intranasal BID 30 days #16 08/13/22 mcg/actuation nasal grams spray,suspension (Flonase Allergy Relief) ipratropium 0.5 mg-albuterol 3 mg 3 ml inhalation Q4-6H PRN wheezing 10/14/22 (2.5 mg base)/3 mL nebulization 30 days #270 mL soln bupropion HCl 150 mg tablet,12 hr 150 mg PO QAM #90 tabs 10/29/22 sustained-release (Wellbutrin SR) loratadine 10 mg tablet 10 mg PO DAILY 30 days #30 tabs 11/10/22 meloxicam 15 mg tablet 15 mg PO DAILY #14 tabs 11/19/22 Allergies Allergy/AdvReac Type Severity Reaction Status Date / Time niacin Allergy Intermediate skin Verified 11/30/22 21:32 [Niaspan Extended-Release] blisters tramadol Allergy Intermediate seizures Verified 11/30/22 21:32 barley [BARLEY] Allergy Unknown UNKNOWN Verified 11/30/22 21:32 fluticasone [Advair Diskus] Allergy Unknown Shortness Verified 11/30/22 21:32 of Breath ibuprofen Allergy Unknown Swelling Verified 11/30/22 21:32 naratriptan Allergy Unknown unknown Verified 11/30/22 21:32 Penicillins [PENICILLINS] Allergy Unknown Unknown Verified 11/30/22 21:32 sumatriptan Allergy Unknown unknown Verified 11/30/22 21:32 trazodone [TRAZODONE] Allergy Unknown UNKNOWN Verified 11/30/22 21:32 equate cough drops sugar free Allergy Mild Unknown Uncoded 11/30/22 21:32 Review of Systems Review of Systems: Pertinent positives and negatives as stated in HPI [facility] Past Medical History Source: nursing notes reviewed Medical History Abnormal angiogram of head Anemia Aneurysm Asthma Colitis COVID-19 GERD (gastroesophageal reflux disease) Thyroid disease Surgical History H/O brain surgery H/O endoscopy History of History of colonoscopy History of surgery of uterus Family History Family History Father Diabetes Arthritis Diverticulitis Leukemia Mental health disorder Lung cancer Mother Anemia Arthritis Colon polyps Myocardial infarction Brother Crohn's disease Testicular cancer Brother Cancer Paternal Grandfather Leukemia Other Substance use disorder Social History Social History Household Members: Significant Other Housing: House Are you a primary date night caregiver to a significant other at home: No Do you presently have visiting nurse or other home services: No Alcohol intake: never Patient Tobacco Use Status: Current everyday Tobacco user Tobacco use type: Cigarette Smoked in Last 30 Days: No e-Cigarette/Vaping Use: Never Used Use of substances other than those prescribed or required for medical reasons: No Advance Directives: Yes Advance Directives on File: Yes Advance Directives Date on File: 04/09/21 service: No 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al status: employed and disabled 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 GENERAL: Well developed, well nourished, in no acute distress. HEAD: Normocephalic/mid posterior scalp contusion without laceration or abrasion EYES: PERRLA, EOMI EARS: Ext canals without abnormality NOSE: Nares patent bilateral OROPHARYNX: no oral lesions noted, posterior pharynx clear NECK: Supple, no adenopathy, no cervical spine tenderness to palpation or step- off LUNGS: Normal breath sounds. No adventitious sounds or accessory muscle use. SpO2<96> CARDIOVASCULAR: Regular rate and rhythm without noted murmurs ABDOMEN: Soft, non-tender, non-distended with bowel sounds. MUSCULOSKELETAL: No tenderness, deformities, or effusions noted on gross inspection. EXTREMITIES: No cyanosis, clubbing or edema. SKIN: Inspection of the skin reveals no rashes NEUROLOGIC: Alert and oriented x 4. Strength and sensation to light touch were grossly intact x 4. Medications Administered Discontinued Medications Generic Name Dose Route Start Last Admin Trade Name Freq PRN Reason Stop Dose Admin Acetaminophen 975 mg 11/30/22 23:18 11/30/22 23:36 Acetaminophen 325 Mg Tablet PO 11/30/22 23:19 975 mg ONCE ONE Administration Lidocaine 1 patch 11/30/22 23:18 11/30/22 23:35 Lidocaine 4 % Patch Adh..Patch TRANSDERMA 11/30/22 23:19 1 patch ONCE ONE Administration Protocol Potassium Chloride 60 meq 11/30/22 23:23 11/30/22 23:36 Potassium Chloride Er 20 Meq Tab.Er.Prt PO 11/30/22 23:24 60 meq ONCE ONE Administration Medical Decision Making Medical Decision Making MDM Narrative: 52-year-old female with history and clinical presentation most consistent with vasovagal syncope, DDX: Infection, anemia, electrolyte abnormalities, arrhythmia. I reviewed all investigations, hematologic indices are negative for leukocytosis or left shift, there is no evidence of acute anemia or thrombocytopenia. On review of chemistry indices patient is noted to have a mild hypokalemia although magnesium levels are within normal limits, she was repleted with 60 mEq of potassium orally. Otherwise, there is no JOI or liver enzyme derangements. EKG was without evidence of acute arrhythmia. Urinalysis negative for infection or hematuria. CT scan negative for acute intracranial hemorrhage or cervical spine fracture/subluxation. Otherwise, my interpretation of the imaging studies are in agreement with radiology's impression. Patient was provided with combination Tylenol and ibuprofen discharged home with instructions to follow-up with her primary care provider in a presumptive diagnosis of vasovagal syncope likely secondary to recent gastroenteritis/food poisoning. Differential Diagnosis Differential Diagnoses: The differential diagnosis associated with the presentation includes Please see the discussion above Admission/Observation Consideration of admission/observation: Escalation of care including admission/observation considered Please see the discussion above Lab Data MDM Lab Attestation statement: I reviewed the patient's lab results. Please see the discussion above 11/30/22 21:45 11/30/22 21:45 Labs: Lab Results 11/30/22 11/30/22 11/30/22 Range/Units 21:45 21:45 21:51 WBC 10.5 (4.8-10.8) X10*3/uL RBC 4.76 (4.20-5.50) X10*6/uL Hgb 12.8 (12.0-16.0) g/dl Hct 38.5 (37.0-47.0) % MCV 80.9 (80.0-98.0) fL MCH 26.9 L (27.0-33.0) pg MCHC 33.2 (31.0-35.0) g/dl RDW 15.0 (11.0-16.0) % Plt Count 234 (160-400) X10*3/uL MPV 10.9 (9.4-12.3) fL Immature Gran % (Auto) 0.3 (0.0-0.4) % Neut % (Auto) 65.1 (45-73) % Lymph % (Auto) 26.3 (20-40) % [place] % (Auto) 5.9 (2-11) % Eos % (Auto) 1.9 (0-4) % Baso % (Auto) 0.5 (0-2) % Lymph # (Auto) 2.8 (1.2-4.9) X10*3/uL [place] # (Auto) 0.6 (0.1-1.2) X10*3/uL Eos # (Auto) 0.2 (0.0-0.4) X10*3/uL Baso # (Auto) 0.1 (0.0-0.2) X10*3/uL Abs Immat Gran (auto) 0.03 (0.00-0.03) X10*3/uL Absolute Neuts (auto) 6.9 (2.0-8.3) x10*3/uL Absolute Nucleated RBC 0.000 (0.0-0.012) X10*3/uL Nucleated RBC % (auto) 0.0 (0.0-0.2) /100WBC Sodium 140 (135-145) mmol/L Potassium 3.2 L D (3.3-5.1) mmol/L Chloride 108 (96-108) mmol/L Carbon Dioxide 18 L (22-29) mmol/L Anion Gap 17 (12-20) BUN 10 (9-16) mg/dL Creatinine 0.80 (0.5-1.4) mg/dL Estim Creat Clear Calc 96.1 Estimated GFR > 60 Random Glucose 102 (60-115) mg/dL Calcium 9.2 (8.4-10.2) mg/dL Magnesium 2.2 (1.6-2.6) mg/dL Total Bilirubin 0.2 (0.0-1.0) mg/dL AST 13 (5-31) U/L ALT 12 (0-31) U/L Alkaline Phosphatase 113 (39-117) U/L Total Protein 6.6 (6.5-8.0) g/dL Albumin 3.9 (3.5-5.0) g/dL Urine Color Yellow Urine Appearance Clear Urine pH 5.5 (5.0-9.0) Ur Specific Sunshine 1.010 (1.005-1.025) Urine Protein Negative (Neg-Trace) mg/dL Urine Glucose (UA) Negative (Negative) mg/dL Urine Ketones Negative (Negative) mg/dL Urine Blood Trace H (Negative) Urine Nitrite Negative (Negative) Ur Leukocyte Esterase Trace H (Negative) Urine RBC 0-2 (0-2) /HPF Urine WBC 0-5 (0-5) /HPF Ur Squamous Epith Cells 0-2 (0-2) /HPF Urine Bacteria None Seen (None Seen) Hyaline Casts 0-2 (0-2) /LPF Independent Interpretation I performed an independent interpretation of an: EKG Interpretation: Sinus bradycardia, HR -55, no STEMI, AR/QRS/QTC are within normal limits. Radiology Impression Discussion of test interpretation with radiology: I have reviewed the radiologist's reading. Radiologist Impression: Please see the discussion above External Record Review External record reviewed: Outpatient record and Prior outpatient labs Discharge Plan Discharge Clinical Impression: Hypokalemia, Syncope, vasovagal, Gastroenteritis, Food poisoning Patient Disposition: Home, Self-Care Instructions: Potassium Content of Foods List (ED), Hypokalemia (ED), Syncope (ED), Gastroenteritis (ED), Food Poisoning (ED), Nutrition Tips for Relief of Diarrhea (ED) Additional Instructions: 1. Resume all home medications as prescribed. 2. Please continue to increase the amount of water intake given your diarrheal illness. 3. Recommend [id number] Tylenol for headaches and neck pain, also recommend using lidocaine patch for additional symptom relief. 4. Follow-up with your primary care provider on Thursday morning. Return to the ER for any worsening symptoms. Prescriptions: No Action albuterol sulfate [ProAir HFA] 90 mcg/actuation HFA aerosol inhaler 2 puff inhalation Q4H Qty: 8.5 0RF levothyroxine 150 mcg tablet 150 mcg PO QAM 90 Days Qty: 90 3RF fluticasone propionate [Flonase Allergy Relief] 50 mcg/actuation spray,suspens ion 2 spray intranasal BID 30 Days Qty: 16 3RF Rx Instructions: administer into each nostril loratadine 10 mg tablet 10 mg PO DAILY 30 Days Qty: 30 6RF Xolair 150 mg recon soln 150 mg subcut Q4W bupropion HCl [Wellbutrin SR] 150 mg tablet sustained-release 12 hr 150 mg PO QAM Qty: 90 0RF meloxicam 15 mg tablet 15 mg PO DAILY Qty: 14 0RF ipratropium-albuterol 0.5 mg-3 mg(2.5 mg base)/3 mL solution for nebulization 3 ml inhalation Q4-6H PRN (Reason: wheezing) 30 Days Qty: 270 6RF famotidine 20 mg tablet 40 mg PO DAILY Referrals: Thee Tay MD [Primary Care Provider] -
[2022-11-30] MEDS: Lidocaine 4 % Patch ADH..PATCH 1 PATCH TRANSDERMA (23:35)
[2022-11-30 23:36] VITALS: BP 143/78; PULSE 78; RESP 14; O2SAT 95
[2022-11-30] MEDS: Potassium Chloride ER 20 MEQ TAB.ER.PRT 60 MEQ PO (23:36)
[2022-11-30] MEDS: Acetaminophen 325 MG TABLET 975 MG PO (23:36)
[2022-11-30 23:38] VITALS: O2SAT 95
[2022-12-01 00:16] VITALS: BP 135/81; PULSE 63; RESP 16; TEMP 36.4; O2SAT 98
== END 2022-12-01 00:54 | disposition home or self-care (01) ==
PROVIDERS: Emergency Provider Student in an Organized Health Care Education/Training Program; PCP Internal Medicine
DX: A05.9 Bacterial foodborne intoxication, unspecified (principal); K52.9 Noninfective gastroenteritis and colitis, unspecified; R55 Syncope and collapse; E87.6 Hypokalemia; M54.2 Cervicalgia; Z79.899 Other long term (current) drug therapy
CPT/HCPCS: 36415; 70450; 72125; 80053; 81001; 81003; 83735; 85025; 93005; 99285

== ENCOUNTER → 2022-11-30 21:36 | Outpatient (BNV) | payer OTHER, MEDICAID, SELFPAY | PROVIDERS: Emergency Provider Student in an Organized Health Care Education/Training Program; PCP Internal Medicine; Visit Provider Internal Medicine Cardiovascular Disease | DX: R00.1 Bradycardia, unspecified (principal) | CPT/HCPCS: 93010 ==

== ENCOUNTER 2022-12-03 10:07 | Outpatient (AMB) | payer OTHER, SELFPAY ==
--- NOTE | 2022-12-03 10:12 | MHC.PC.OV ---
Vital Signs 12/03/22 10:17 Height 5 ft 5 in Weight 206 lb 6 oz BMI 34.3 BP 130/80 Blood Pressure Location Rt brachial Position Sitting Pulse 73 Pulse Source Pulse Oximeter Pulse Oximetry (%) 97 Oxygen Delivery Method Room Air Intake Visit Reasons: WC Allergies niacin [Niaspan Extended-Release] Allergy (Intermediate, Verified 12/03/22 10:12) skin blisters tramadol Allergy (Intermediate, Verified 12/03/22 10:12) seizures barley [BARLEY] Allergy (Unknown, Verified 12/03/22 10:12) UNKNOWN fluticasone [Advair Diskus] Allergy (Unknown, Verified 12/03/22 10:12) Shortness of Breath ibuprofen Allergy (Unknown, Verified 12/03/22 10:12) Swelling naratriptan Allergy (Unknown, Verified 12/03/22 10:12) unknown Penicillins [PENICILLINS] Allergy (Unknown, Verified 12/03/22 10:12) Unknown sumatriptan Allergy (Unknown, Verified 12/03/22 10:12) unknown trazodone [TRAZODONE] Allergy (Unknown, Verified 12/03/22 10:12) UNKNOWN equate cough drops sugar free Allergy (Mild, Uncoded 11/30/22 21:32) Unknown Medication List - Last Reconciled 12/03/22 by Thee Tay MD bupropion HCl (Wellbutrin SR) 150 mg PO QAM famotidine 40 mg PO DAILY fluticasone propionate 50 mcg/actuation (Flonase Allergy Relief) 2 sprays intranasal BID 30 days ipratropium-albuterol 0.5 mg-3 mg(2.5 mg base)/3 mL 3 mL inhalation Q4-6H PRN 30 days levothyroxine 150 mcg PO QAM 90 days loratadine 10 mg PO DAILY 30 days meloxicam 15 mg PO DAILY omalizumab (Xolair) 150 mg subcut Q4W ProAir HFA 90 mcg/actuation (albuterol sulfate) 2 puffs inhalation Q4H NS Tobacco use date assessed: 12/03/22 Dental Screening Dental Screen Date: 12/03/22 Did you have a dental visit in the last 12 months?: No Did you have a dental problem in the last 6 months where you did not have access to dental care?: No Was dental information given to patient?: No HPI WC HPI Details Patient is a 52-year-old female came in today to be evaluated after a visit in emergency room dated 11/30/2022 [facility]. Patient presented via EMS after she sustained a syncopal episode while at work. 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 Which gradually improved. Labs were done EKG showed sinus bradycardia 55 beats per minute no acute findings Patient was found to have slight hypokalemia at 3.2 and she was instructed to eat potassium rich foods. Patient was evaluated and discharged from emergency room. CT scan of head and neck was done which showed ?No acute intracranial bleed or territorial infarction. No acute fractures of the calvarium or cervical spine. She has started to have pain in her neck radiating to left arm, patient is also complaining of weakness in her hand left side Her heart rate is 73 beats per minute today blood pressure is 130/80 I have ordered electrolytes test just to make sure her potassium has gone back to normal. Patient will continue to rest at home. I have sent more lidocaine patches and muscle relaxer for the patient She is to stop taking ibuprofen she may take naproxen which I have sent for her along with Tylenol. Patient is to return in 10 days for re-evaluation. Needs any paperwork she is to bring it along [facility] Medical History Abnormal angiogram of head Anemia Aneurysm Asthma Colitis COVID-19 GERD (gastroesophageal reflux disease) Thyroid disease Surgical History H/O brain surgery H/O endoscopy History of History of colonoscopy History of surgery of uterus Family History Father Diabetes Arthritis Diverticulitis Leukemia Mental health disorder Lung cancer Mother Anemia Arthritis Colon polyps Myocardial infarction Brother Crohn's disease Testicular cancer Brother Cancer Paternal Grandfather Leukemia Other Substance use disorder Social History Household Members: Significant Other Housing: House Are you a primary clinical care coordinator to a significant other at home: No Do you presently have visiting nurse or other home services: No Alcohol intake: never Patient Tobacco Use Status: Former Tobacco user Tobacco use type: Cigarette e-Cigarette/Vaping Use: Never Used Advance Directives Date on File: 04/09/21 service: No 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al status: employed Cognitive needs: No Hearing needs: No Vision needs: Yes Questionnaire Thrive Questionnaire Date Thrive assessed: 11/13/21 AUDIT C Alcohol Use Questionnaire (AUDIT-C) 1. How often do you have a drink containing alcohol?: Never 3. How often do you have six or more drinks on one occasion?: Never Total Score: 0 Score Reviewed/Action Taken: Yes MARKO-7 AMB Questionnaire MARKO-7 Date MARKO - 7 assessed: 11/13/21 Source: Developed by Drs. Masood Arredondo, Lesly Pruitt, Thor Del Cid and colleagues, with an educational phil from [employer]. Review of Systems Const Denies chills and Denies fever(s) ENT Denies epistaxis and Denies nasal discharge Card Denies chest pain Resp Denies chest congestion, Denies cough and Denies hemoptysis GI Denies diarrhea and Denies nausea Skin/Breast Denies rash Neuro Reports no additional complaints Psych Reports no additional complaints Endo Reports no additional complaints Physical exam (Primary Care) Vital Signs: Last Vital Signs Pulse 73 12/03/22 10:17 BP 130/80 12/03/22 10:17 Pulse Ox 97 12/03/22 10:17 Oxygen Delivery Method Room Air 12/03/22 10:17 BMI result Body Mass Index 34.3 Tobacco/Smoking Status: Tobacco use Status Tobacco use date assessed 12/03/22 12/03/22 10:14 Patient Tobacco Use Status Former Tobacco user 12/03/22 10:17 Tobacco use type Cigarette 12/03/22 10:14 e-Cigarette/Vaping Use Never Used 12/03/22 10:14 Thrive Assessment: Date of Thrive Assessment Date Thrive assessed 11/13/21 12/03/22 10:14 Const General: cooperative, comfortable and no acute distress Orientation/consciousness: patient oriented x3 HENMT Head: Yes normocephalic Eyes General: appearance normal, both eyes and all related structures Neck Other: Neck supple but painful Neck images: 1. Location of pain 2. 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 side compared to right, patient is unable to lift left shoulder above head due to pain around neck area General: patient oriented x3, tone normal and moves all extremities Extrem Right lower extremity: no edema Left lower extremity: no edema Assessment and Plan Assessment & Plan (1) Hospital discharge follow-up: Code(s): Z09 - Encounter for follow-up examination after completed treatment for conditions other than malignant neoplasm (2) Hypokalemia: Code(s): E87.6 - Hypokalemia (3) Syncope: Code(s): R55 - Syncope and collapse (4) Radiculitis of left cervical region: Code(s): M54.12 - Radiculopathy, cervical region (5) Paresthesias in left hand: Code(s): R20.2 - Paresthesia of skin Plan Patient is a 52-year-old female came in today to be evaluated after a visit in emergency room dated 11/30/2022 [facility]. Patient presented via EMS after she sustained a syncopal episode while at work. 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 Which gradually improved. Labs were done EKG showed sinus bradycardia 55 beats per minute no acute findings Patient was found to have slight hypokalemia at 3.2 and she was instructed to eat potassium rich foods. Patient was evaluated and discharged from emergency room. CT scan of head and neck was done which showed ?No acute intracranial bleed or territorial infarction. No acute fractures of the calvarium or cervical spine. She has started to have pain in her neck radiating to left arm, patient is also complaining of weakness in her hand left side Her heart rate is 73 beats per minute today blood pressure is 130/80 I have ordered electrolytes test just to make sure her potassium has gone back to normal. Patient will continue to rest at home. I have sent more lidocaine patches and muscle relaxer for the patient She is to stop taking ibuprofen she may take naproxen which I have sent for her along with Tylenol. Patient is to return in 10 days for re-evaluation. Needs any paperwork she is to bring it along Orders: Orders Electrolytes Today E87.6 - Hypokalemia Medications: New naproxen 500 mg PO BID PRN 60 tabs 0RF pain 30 days cyclobenzaprine 5 mg PO BEDTIME 30 tabs 0RF 30 days M54.9 - Dorsalgia, unspecified lidocaine 5% leave on most painful area for up to 12 hrs 1 patch topical DAILY 30 ea 0RF 30 days Discontinued meloxicam Discontinued Reason: Doctor's Order 15 mg PO DAILY 14 tabs 0RF M26.609 - Unspecified temporomandibular joint disorder, unspecified side Coding Level of Care Code Est Pt Level 5 (33457) Diagnoses Hospital discharge follow-up Z09 Hypokalemia E87.6 Syncope R55 Radiculitis of left cervical region M54.12 Paresthesias in left hand R20.2 Time Spent (min) 45 Comment Reviewing chart, [id number] patient, coordination of care
[2022-12-03 10:17] VITALS: BP 130/80; PULSE 73; O2SAT 97; BMI 34.3
== END 2022-12-03 11:02 | disposition home or self-care (01) ==
PROVIDERS: PCP Internal Medicine; Visit Provider Internal Medicine
DX: Z09 Encounter for follow-up examination after completed treatment for conditions other than malignant neoplasm (principal); E87.6 Hypokalemia; R55 Syncope and collapse; M54.12 Radiculopathy, cervical region; R20.2 Paresthesia of skin
CPT/HCPCS: 99215

== ENCOUNTER 2022-12-03 11:06 | Outpatient (AMB) | payer OTHER, SELFPAY ==
[2022-12-03 11:14] VITALS: BP 122/71; PULSE 78; BMI 34.3
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
== END 2022-12-03 11:43 | disposition home or self-care (01) ==
PROVIDERS: PCP Internal Medicine; Visit Provider Nurse Practitioner
DX: R19.7 Diarrhea, unspecified (principal); K57.92 Diverticulitis of intestine, part unspecified, without perforation or abscess without bleeding; K21.9 Gastro-esophageal reflux disease without esophagitis; R14.0 Abdominal distension (gaseous)
CPT/HCPCS: 99213

== ENCOUNTER → 2022-12-03 11:06 | Outpatient (BNVA) | payer OTHER, SELFPAY | PROVIDERS: PCP Internal Medicine; Visit Provider Nurse Practitioner ==

== ENCOUNTER 2022-12-04 10:29 | Outpatient (REF) | payer OTHER, SELFPAY | END 2022-12-04 10:30 | disposition home or self-care (01) | LOC: HO.MDS 10:29 | PROVIDERS: Visit Provider Internal Medicine Pulmonary Disease | DX: J45.50 Severe persistent asthma, uncomplicated (principal) | CPT/HCPCS: 96372; J2357 ==

== ENCOUNTER 2022-12-04 11:08 | Outpatient (REF) | payer OTHER, SELFPAY ==
[2022-12-04 12:56] LABS: MANUAL DIFF FLAG NO
[2022-12-04 13:11] LABS: Basophils Absolute Auto 0.1 X10*3/uL (0.0-0.2); Basophils Percent Auto 0.7 % (0-2); Eosinophils Absolute Auto 0.2 X10*3/uL (0.0-0.4); Hematocrit 41.2 % (37.0-47.0); Hemoglobin 13.4 g/dl (12.0-16.0); Imm Gran Abs Auto 0.02 X10*3/uL (0.00-0.03); Imm Gran Pct Auto 0.3 % (0.0-0.4); Lymphocytes Absolute Auto 1.9 X10*3/uL (1.2-4.9); Lymphocytes Percent Auto 24.9 % (20-40); Mean Corpuscular HGB Conc 32.5 g/dl (31.0-35.0); Mean Corpuscular Hemoglobin 26.6 pg (27.0-33.0); Mean Corpuscular Volume 81.9 fL (80.0-98.0); Mean Platelet Volume 10.8 fL (9.4-12.3); Monocytes Absolute Auto 0.5 X10*3/uL (0.1-1.2); Monocytes Percent Auto 6.6 % (2-11); Neutrophils Absolute Auto 4.9 x10*3/uL (2.0-8.3); Neutrophils Percent Auto 65.5 % (45-73); Platelet Count 211 X10*3/uL (160-400); Red Blood Count 5.03 X10*6/uL (4.20-5.50); Red Cell Distribution Width 15.4 % (11.0-16.0); White Blood Count 7.4 X10*3/uL (4.8-10.8)
[2022-12-04 13:24] LABS: Alanine Aminotransferase 10 U/L (0-31); Albumin Level 3.9 g/dL (3.5-5.0); Alkaline Phosphatase 108 U/L (39-117); Anion Gap 11 (12-20); Aspartate Amino Transferase 10 U/L (5-31); Bilirubin Total 0.3 mg/dL (0.0-1.0); Blood Urea Nitrogen 11 mg/dL (9-16); Calcium 9.5 mg/dL (8.4-10.2); Carbon Dioxide 23 mmol/L (22-29); Chloride 108 mmol/L (96-108); Estimated Glomerular Filt Rate > 60; Glucose Random 91 mg/dL (60-115); Potassium 4.2 mmol/L (3.3-5.1); Sodium 138 mmol/L (135-145); Total Protein 6.5 g/dL (6.5-8.0)
[2022-12-04 13:42] LABS: Ferritin 21 ng/mL (10-250)
[2022-12-04 13:43] LABS: TSH reflex Free T4 9.06 uIU/mL (0.32-4.0)
[2022-12-04 15:18] LABS: Free T4 (Free Thyroxine) 1.09 ng/dL (0.71-1.85)
== END 2022-12-04 11:09 | disposition home or self-care (01) ==
LOC: HO.HMGCLDS 11:08
PROVIDERS: Internal Medicine Medical Oncology; PCP Internal Medicine; Visit Provider Internal Medicine
DX: E03.8 Other specified hypothyroidism (principal); D64.9 Anemia, unspecified
CPT/HCPCS: 36415; 80053; 82728; 84439; 84443; 85025

== ENCOUNTER 2022-12-16 11:19 | Outpatient (AMB) | payer OTHER, SELFPAY ==
[2022-12-16 11:25] VITALS: BP 124/86; PULSE 81; O2SAT 98; BMI 34.8
--- NOTE | 2022-12-16 11:25 | MHC.PC.OV ---
Vital Signs 12/16/22 11:25 Height 5 ft 5 in Weight 209 lb 4 oz BMI 34.8 BP 124/86 Blood Pressure Location Rt brachial Position Sitting Pulse 81 Pulse Source Pulse Oximeter Pulse Oximetry (%) 98 Oxygen Delivery Method Room Air Intake Visit Reasons: WC 10 day Allergies niacin [Niaspan Extended-Release] Allergy (Intermediate, Verified 12/16/22 11:26) skin blisters tramadol Allergy (Intermediate, Verified 12/16/22 11:26) seizures barley [BARLEY] Allergy (Unknown, Verified 12/16/22 11:26) UNKNOWN fluticasone [Advair Diskus] Allergy (Unknown, Verified 12/16/22 11:26) Shortness of Breath ibuprofen Allergy (Unknown, Verified 12/16/22 11:26) Swelling naratriptan Allergy (Unknown, Verified 12/16/22 11:26) unknown Penicillins [PENICILLINS] Allergy (Unknown, Verified 12/16/22 11:26) Unknown sumatriptan Allergy (Unknown, Verified 12/16/22 11:26) unknown trazodone [TRAZODONE] Allergy (Unknown, Verified 12/16/22 11:26) UNKNOWN equate cough drops sugar free Allergy (Mild, Uncoded 11/30/22 21:32) Unknown Medication List - Last Reconciled 12/16/22 by Thee Tay MD bupropion HCl (Wellbutrin SR) 150 mg PO QAM cyclobenzaprine 5 mg PO BEDTIME 30 days famotidine 40 mg PO DAILY fluticasone propionate 50 mcg/actuation (Flonase Allergy Relief) 2 sprays intranasal BID 30 days ipratropium-albuterol 0.5 mg-3 mg(2.5 mg base)/3 mL 3 mL inhalation Q4-6H PRN 30 days levothyroxine 175 mcg PO QAM 90 days lidocaine 5% 1 patch topical DAILY 30 days loratadine 10 mg PO DAILY 30 days naproxen 500 mg PO BID PRN 30 days omalizumab (Xolair) 150 mg subcut Q4W ProAir HFA 90 mcg/actuation (albuterol sulfate) 2 puffs inhalation Q4H NS Tobacco use date assessed: 12/16/22 Dental Screening Dental Screen Date: 12/16/22 Did you have a dental visit in the last 12 months?: No Did you have a dental problem in the last 6 months where you did not have access to dental care?: No Was dental information given to patient?: No HPI WC 10 day HPI Details Patient is a 52-year-old female came in today for her follow-up appointment after having a fall secondary to syncopal episode at work Patient was complaining of weakness and numbness in her left hand and arm along with neck pain last visit Her hand paresthesia has improved but it is still there Neck movement is improving gradually I have ordered physical therapy for the patient She will also need a nerve conduction study for her left upper extremity. Patient will be off work until early December She will be re-evaluated then. [facility] Medical History Abnormal angiogram of head Anemia Aneurysm Asthma Colitis COVID-19 GERD (gastroesophageal reflux disease) Thyroid disease Surgical History H/O brain surgery H/O endoscopy History of History of colonoscopy History of surgery of uterus Family History Father Diabetes Arthritis Diverticulitis Leukemia Mental health disorder Lung cancer Mother Anemia Arthritis Colon polyps Myocardial infarction Brother Crohn's disease Testicular cancer Brother Cancer Paternal Grandfather Leukemia Other Substance use disorder Social History Household Members: Significant Other Housing: House Are you a primary director of health care marketing to a significant other at home: No Do you presently have visiting nurse or other home services: No Alcohol intake: never Patient Tobacco Use Status: Former Tobacco user Tobacco use type: Cigarette e-Cigarette/Vaping Use: Never Used Advance Directives Date on File: 04/09/21 service: No 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al status: employed Cognitive needs: No Hearing needs: No Vision needs: Yes Questionnaire Thrive Questionnaire Date Thrive assessed: 11/13/21 AUDIT C Alcohol Use Questionnaire (AUDIT-C) 1. How often do you have a drink containing alcohol?: Never 3. How often do you have six or more drinks on one occasion?: Never Total Score: 0 Score Reviewed/Action Taken: Yes MARKO-7 AMB Questionnaire MARKO-7 Date MARKO - 7 assessed: 11/13/21 Source: Developed by Drs. Masood Arredondo, Lesly Pruitt, Thor Del Cid and colleagues, with an educational phil from [employer]. Review of Systems Const Denies chills and Denies fever(s) ENT Denies epistaxis and Denies nasal discharge Card Denies chest pain Resp Denies chest congestion, Denies cough and Denies hemoptysis GI Denies diarrhea and Denies nausea Skin/Breast Denies rash Neuro Reports no additional complaints Psych Reports no additional complaints Endo Reports no additional complaints Physical exam (Primary Care) Vital Signs: Last Vital Signs Pulse 81 12/16/22 11:25 BP 124/86 12/16/22 11:25 Pulse Ox 98 12/16/22 11:25 Oxygen Delivery Method Room Air 12/16/22 11:25 BMI result Body Mass Index 34.8 Tobacco/Smoking Status: Tobacco use Status Tobacco use date assessed 12/16/22 12/16/22 11:27 Patient Tobacco Use Status Former Tobacco user 12/16/22 11:27 Tobacco use type Cigarette 12/16/22 11:27 e-Cigarette/Vaping Use Never Used 12/16/22 11:27 Thrive Assessment: Date of Thrive Assessment Date Thrive assessed 11/13/21 12/16/22 11:27 Const General: cooperative, comfortable and no acute distress Orientation/consciousness: patient oriented x3 HENMT Head: Yes normocephalic Eyes General: appearance normal, both eyes and all related structures Neck Other: Neck movement is still limited secondary to pain mostly left side Resp Effort & Inspection: normal respiratory effort, no cough and no stridor Cardio Rhythm: regular rhythm Heart sounds: S1 normal heart sound present and S2 normal heart sound present Skin General skin exam: turgor normal Neuro Other: Sensory exam grossly intact left upper extremity General: patient oriented x3, tone normal and moves all extremities Extrem Right lower extremity: no edema Left lower extremity: no edema Assessment and Plan Assessment & Plan (1) Radiculitis of left cervical region: Code(s): M54.12 - Radiculopathy, cervical region (2) Paresthesias in left hand: Code(s): R20.2 - Paresthesia of skin (3) Work related injury: Code(s): Y99.0 - Civilian activity done for income or pay Plan Patient is a 52-year-old female came in today for her follow-up appointment after having a fall secondary to syncopal episode at work Patient was complaining of weakness and numbness in her left hand and arm along with neck pain last visit Her hand paresthesia has improved but it is still there Neck movement is improving gradually I have ordered physical therapy for the patient She will also need a nerve conduction study for her left upper extremity. Patient will be off work until early December She will be re-evaluated then. Orders: Orders PT Evaluation and Treatment Today M54.12 - Radiculopathy, cervical region NE electromyogram (EMG) Today M54.12 - Radiculopathy, cervical region, R20.2 - Paresthesia of skin NE nerve conduction velocity Today M54.12 - Radiculopathy, cervical region, R20.2 - Paresthesia of skin Coding Level of Care Code Est Pt Level 4 (53623) Diagnoses Radiculitis of left cervical region M54.12 Paresthesias in left hand R20.2 Work related injury Y99.0
== END 2022-12-16 12:16 | disposition home or self-care (01) ==
PROVIDERS: PCP Internal Medicine; Visit Provider Internal Medicine
DX: M54.12 Radiculopathy, cervical region (principal); R20.2 Paresthesia of skin; Y99.0 Civilian activity done for income or pay
CPT/HCPCS: 99214

== ENCOUNTER 2022-12-23 14:16 | Outpatient (AMB) | payer OTHER, SELFPAY ==
[2022-12-23 14:29] VITALS: PULSE 82; O2SAT 98; BMI 35.5
--- NOTE | 2022-12-23 14:29 | MHC.PC.OV ---
Vital Signs 12/23/22 14:29 Height 5 ft 5 in Weight 213 lb 2 oz BMI 35.5 Pulse 82 Pulse Source Pulse Oximeter Pulse Oximetry (%) 98 Oxygen Delivery Method Room Air Intake Visit Reasons: W/C follow up ~ Allergies niacin [Niaspan Extended-Release] Allergy (Intermediate, Verified 12/16/22 11:26) skin blisters tramadol Allergy (Intermediate, Verified 12/16/22 11:26) seizures barley [BARLEY] Allergy (Unknown, Verified 12/16/22 11:26) UNKNOWN fluticasone [Advair Diskus] Allergy (Unknown, Verified 12/16/22 11:26) Shortness of Breath ibuprofen Allergy (Unknown, Verified 12/16/22 11:26) Swelling naratriptan Allergy (Unknown, Verified 12/16/22 11:26) unknown Penicillins [PENICILLINS] Allergy (Unknown, Verified 12/16/22 11:26) Unknown sumatriptan Allergy (Unknown, Verified 12/16/22 11:26) unknown trazodone [TRAZODONE] Allergy (Unknown, Verified 12/16/22 11:26) UNKNOWN equate cough drops sugar free Allergy (Mild, Uncoded 11/30/22 21:32) Unknown Medication List - Last Reconciled 12/23/22 by Thee Tay MD bupropion HCl (Wellbutrin SR) 150 mg PO QAM cyclobenzaprine 5 mg PO BEDTIME 30 days famotidine 40 mg PO DAILY fluticasone propionate 50 mcg/actuation (Flonase Allergy Relief) 2 sprays intranasal BID 30 days ipratropium-albuterol 0.5 mg-3 mg(2.5 mg base)/3 mL 3 mL inhalation Q4-6H PRN 30 days levothyroxine 175 mcg PO QAM 90 days lidocaine 5% 1 patch topical DAILY 30 days loratadine 10 mg PO DAILY 30 days naproxen 500 mg PO BID PRN 30 days omalizumab (Xolair) 150 mg subcut Q4W ProAir HFA 90 mcg/actuation (albuterol sulfate) 2 puffs inhalation Q4H NS Tobacco use date assessed: 12/16/22 HPI W/C follow up ~ HPI Details We received following messages so we called patient to come in for evaluation On 12/23/22 @ 12:55 Sammi George Wrote To Thee Tay Dr. Davis is a microsoft dynamics consultant with the [facility] insurance carrier for patient's workman's comp case and asking if pt can be cleared to return to work light duty which is an option with employer.? He is asking for specifications such as No lifting beyond a certain weight,? no bending, no stooping or no climbing. ? Phone number as below and fax [phone].? Will? need to have patient sign release of information if she agrees with sharing of information with this carrier. On 12/23/22 @ 11:20 Nelsy Carson Wrote To BLAISE Tay Dr. Davis, is requesting for a call back in regards to the patient. Dr. Davis: [phone] Patient is currently in physical therapy and has been improving She is able to use her left hand and arm now. She agree to go back to work with restrictions I have placed a restriction of no stooping no bending no lifting more than 5 lb and no lifting above head with left arm Until January 28, patient will return for re-evaluation. [facility] Medical History Abnormal angiogram of head Anemia Aneurysm Asthma Colitis COVID-19 GERD (gastroesophageal reflux disease) Thyroid disease Surgical History H/O brain surgery H/O endoscopy History of History of colonoscopy History of surgery of uterus Family History Father Diabetes Arthritis Diverticulitis Leukemia Mental health disorder Lung cancer Mother Anemia Arthritis Colon polyps Myocardial infarction Brother Crohn's disease Testicular cancer Brother Cancer Paternal Grandfather Leukemia Other Substance use disorder Social History Household Members: Significant Other Housing: House Are you a primary child care centre manager to a significant other at home: No Do you presently have visiting nurse or other home services: No Alcohol intake: never Patient Tobacco Use Status: Former Tobacco user Tobacco use type: Cigarette e-Cigarette/Vaping Use: Never Used Advance Directives Date on File: 04/09/21 service: No 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al status: employed Cognitive needs: No Hearing needs: No Vision needs: Yes Questionnaire PHQ-9 Over the last 2 weeks, how often have you been bothered by any of the following problems? 1. Little interest or pleasure in doing things: not at all 2. Feeling down, depressed, or hopeless: not at all 3. Trouble falling or staying asleep, or sleeping too much: nearly every day 4. Feeling tired or having little energy: not at all 5. Poor appetite or overeating: not at all 6. Feeling bad about yourself - or that you are a failure or have let yourself or your family down: not at all 7. Trouble concentrating on things, such as reading the newspaper or watching television: not at all 8. Moving or speaking so slowly that other people could have noticed. Or the opposite - being so fidgety or restless that you have been moving around a lot more than usual: not at all 9. Thoughts that you would be better off or of hurting yourself in some way: not at all Total score: 3 Depression Screening Interpretation: Negative 62300 - PHQ-9 Billing: Yes Source: Developed by Drs. Masood Arredondo, Thor Love and colleagues, with an educational phil from [employer]. Thrive Questionnaire Date Thrive assessed: 11/13/21 MARKO-7 AMB Questionnaire MARKO-7 Date MARKO - 7 assessed: 11/13/21 Source: Developed by Drs. Masood Arredondo, Thor Love and colleagues, with an educational phil from [employer]. Review of Systems Const Denies chills and Denies fever(s) ENT Denies epistaxis and Denies nasal discharge Card Denies chest pain Resp Denies chest congestion, Denies cough and Denies hemoptysis GI Denies diarrhea and Denies nausea Skin/Breast Denies rash Neuro Reports no additional complaints Psych Reports no additional complaints Endo Reports no additional complaints Physical exam (Primary Care) Vital Signs: Last Vital Signs Pulse 82 12/23/22 14:29 Pulse Ox 98 12/23/22 14:29 Oxygen Delivery Method Room Air 12/23/22 14:29 BMI result Body Mass Index 35.5 Tobacco/Smoking Status: Tobacco use Status Tobacco use date assessed 12/16/22 12/23/22 14:30 Patient Tobacco Use Status Former Tobacco user 12/23/22 14:30 Tobacco use type Cigarette 12/23/22 14:30 e-Cigarette/Vaping Use Never Used 12/23/22 14:30 Depression Screening Interpretation: Negative Thrive Assessment: Date of Thrive Assessment Date Thrive assessed 11/13/21 12/23/22 14:30 Const General: cooperative, comfortable and no acute distress Orientation/consciousness: patient oriented x3 HENMT Head: Yes normocephalic Eyes General: appearance normal, both eyes and all related structures Neck Neck: Yes supple Resp Effort & Inspection: normal respiratory effort, no cough and no stridor Cardio Rhythm: regular rhythm Heart sounds: S1 normal heart sound present and S2 normal heart sound present Skin General skin exam: turgor normal Neuro General: patient oriented x3, tone normal and moves all extremities Extrem Other: Able to lift left shoulder above the head now, elbow with full range of motion, left wrist with full range of motion, left hand marketing communication manager 4x 5 compared to right side Right lower extremity: no edema Left lower extremity: no edema Assessment and Plan Assessment & Plan (1) Work related injury: Code(s): Y99.0 - Civilian activity done for income or pay (2) Paresthesias in left hand: Code(s): R20.2 - Paresthesia of skin (3) Radiculitis of left cervical region: Code(s): M54.12 - Radiculopathy, cervical region Plan We received following messages so we called patient to come in for evaluation On 12/23/22 @ 12:55 Sammi George Wrote To Thee Tay Dr. Davis is a microsoft dynamics consultant with the [employer] insurance carrier for patient's workman's comp case and asking if pt can be cleared to return to work light duty which is an option with employer.? He is asking for specifications such as No lifting beyond a certain weight,? no bending, no stooping or no climbing. ? Phone number as below and fax [phone].? Will? need to have patient sign release of information if she agrees with sharing of information with this carrier. On 12/23/22 @ 11:20 Nelsy Carson Wrote To BLAISE Tay Dr. Davis, is requesting for a call back in regards to the patient. Dr. Davis: [phone] Patient is currently in physical therapy and has been improving She is able to use her left hand and arm now. She agree to go back to work with restrictions I have placed a restriction of no stooping no bending no lifting more than 5 lb and no lifting above head with left arm Letter provided however patient says that the me note except letter and she will have to fill some more paperwork she will let us know Until January 28, patient will return for re-evaluation. Coding Level of Care Code Est Pt Level 4 (24632) Diagnoses Work related injury Y99.0 Paresthesias in left hand R20.2 Radiculitis of left cervical region M54.12
== END 2022-12-23 14:55 | disposition home or self-care (01) ==
PROVIDERS: PCP Internal Medicine; Visit Provider Internal Medicine
DX: M54.12 Radiculopathy, cervical region (principal); Y99.0 Civilian activity done for income or pay; R20.2 Paresthesia of skin
CPT/HCPCS: 99214

== ENCOUNTER 2022-12-26 14:02 | Outpatient (REF) | payer OTHER, SELFPAY ==
--- NOTE | 2022-12-26 14:04 | EMG_ITS ---
Chief complaint: Left arm weakness and tingling after a fall Reason for referral: Evaluate for radiculopathy or neuropathy Referred by: Dr. Thee Tay Procedure done: Left upper extremity NCS/EMG Precautions and/or limitations: Patient felt nauseous during exam. Deferred cervical paraspinal needle EMG. The limb temperature was monitored continuously and remained between 32-36 degrees C during the performance of the NCS. Nerve Conduction Studies Anti Sensory Summary Table ?Stim Site NR Onset (ms) Norm Onset (ms) Peak (ms) Norm Peak (ms) O-P Amp (?V) Norm O-P Amp Site1 Site2 Delta-0 (ms) Dist (cm) Sorin (m/s) Norm Sorin (m/s) Left Median Anti Sensory (2nd Digit) Wrist ? 2.6 3.4 <3.6 23.9 >10 Wrist 2nd Digit 2.6 14.0 54 Left Radial Anti Sensory (Thumb) Forearm ? 2.0 2.6 <3.1 31.6 Forearm Thumb 2.0 0.0 Left Ulnar Anti Sensory (5th Digit) Wrist ? 0.7 3.5 <3.7 29.4 >15.0 Wrist 5th Digit 0.7 14.0 200 Motor Summary Table ?Stim Site NR Onset (ms) Norm Onset (ms) O-P Amp (mV) Norm O-P Amp iAmp (mV) Amp (1st) (%) Site1 Site2 Delta-0 (ms) Dist (cm) Sorin (m/s) Norm Sorin (m/s) Left Median Motor (Abd Poll Brev) Wrist ? 3.0 <3.9 6.5 >4.5 7.9 100.0 Elbow Wrist 4.0 20.0 50 >45 Elbow ? 7.0 5.3 7.2 81.5 Left Ulnar Motor (Abd Dig Minimi) Wrist ? 2.4 <3.0 5.4 >5 7.2 100.0 B Elbow Wrist 3.3 18.0 55 >45 B Elbow ? 5.7 6.6 8.5 122.2 A Elbow B Elbow 1.6 10.0 63 >45 A Elbow ? 7.3 6.0 7.9 111.1 EMG ?Side Muscle Nerve Root Ins Act Fibs Psw Amp Dur Poly Recrt Int Pat Comment Left 1stDorInt Ulnar C8-T1 Nml Nml Nml Nml Nml 0 Nml Complete Left FlexCarRad Median C6-7 Nml Nml Nml Nml Nml 0 Nml Complete Left Biceps Musculocut C5-6 Nml Nml Nml Nml Nml 0 Nml Complete Left Triceps Radial C6-7-8 Nml Nml Nml Nml Nml 0 Nml Complete Left Deltoid Axillary C5-6 Nml Nml Nml Nml Nml 0 Nml Complete FINDINGS: All motor and sensory nerves tested showed normal latencies, amplitudes and conduction velocities. Concentric needle EMG was performed in selected muscles of the left upper extremity. Study did not reveal signs of electric abnormalities as shown in the table below. IMPRESSION: 1. This is a normal study. 2. There is no electrodiagnostic evidence for median neuropathy, ulnar neuropathy, brachial plexopathy, or cervical radiculopathy. Thank you for your kind referral. Jerri Kingsley MD, NENITA Board Certified, [place] [employer] Physical [employer] and Rehabilitation (ABPMR) Board Certified, [place] [employer] Board of Electrodiagnostic Medicine (ABEM) CODIN [id number] [facility]
== END 2022-12-26 14:03 | disposition home or self-care (01) ==
LOC: HO.NEURO 14:02
PROVIDERS: PCP Internal Medicine; Visit Provider Internal Medicine
DX: R20.2 Paresthesia of skin (principal); M54.12 Radiculopathy, cervical region
CPT/HCPCS: 95886; 95909

== ENCOUNTER → 2022-12-26 14:04 | Outpatient (BNV) | payer OTHER, SELFPAY | PROVIDERS: PCP Internal Medicine; Visit Provider Physical Medicine & Rehabilitation | DX: M54.12 Radiculopathy, cervical region (principal); R20.2 Paresthesia of skin | CPT/HCPCS: 95886; 95909 ==

== ENCOUNTER 2023-01-01 11:43 | Outpatient (REF) | payer OTHER, SELFPAY | END 2023-01-01 11:44 | disposition home or self-care (01) | LOC: HO.MDS 11:43 | PROVIDERS: Visit Provider Internal Medicine Pulmonary Disease | DX: J45.50 Severe persistent asthma, uncomplicated (principal) | CPT/HCPCS: 96372; J2357 ==

== ENCOUNTER 2023-01-23 13:15 | Outpatient (REF) | payer OTHER, SELFPAY ==
[2023-01-23 17:15] LABS: Anion Gap 15 (12-20); Carbon Dioxide 23 mmol/L (22-29); Chloride 108 mmol/L (96-108); Potassium 4.2 mmol/L (3.3-5.1); Sodium 142 mmol/L (135-145)
[2023-01-23 17:29] LABS: TSH reflex Free T4 0.79 uIU/mL (0.32-4.0)
== END 2023-01-23 13:16 | disposition home or self-care (01) ==
LOC: HO.HMGCLDS 13:15
PROVIDERS: PCP Internal Medicine; Visit Provider Internal Medicine
DX: E03.9 Hypothyroidism, unspecified (principal); E87.6 Hypokalemia
CPT/HCPCS: 36415; 80051; 84443

== ENCOUNTER 2023-01-23 13:46 | Outpatient (AMB) | payer OTHER, MEDICAID, SELFPAY ==
[2023-01-23 13:49] VITALS: BP 118/82; PULSE 74; TEMP 37.2; O2SAT 99; BMI 35.0
--- NOTE | 2023-01-23 13:49 | MHC.OFFVIS ---
Intake Vital Signs 01/23/23 13:49 Height 5 ft 5 in Weight 210 lb 8.663 oz BMI 35.0 BP 118/82 Blood Pressure Location Rt brachial Position Sitting Pulse 74 Pulse Source Doppler Temp 99 F Pulse Oximetry (%) 99 Oxygen Delivery Method Room Air Intake Visit Reasons: Asthma Allergies niacin [Niaspan Extended-Release] Allergy (Intermediate, Verified 01/23/23 13:53) skin blisters tramadol Allergy (Intermediate, Verified 01/23/23 13:53) seizures barley [BARLEY] Allergy (Unknown, Verified 01/23/23 13:53) UNKNOWN fluticasone [Advair Diskus] Allergy (Unknown, Verified 01/23/23 13:53) Shortness of Breath ibuprofen Allergy (Unknown, Verified 01/23/23 13:53) Swelling naratriptan Allergy (Unknown, Verified 01/23/23 13:53) unknown Penicillins [PENICILLINS] Allergy (Unknown, Verified 01/23/23 13:53) Unknown sumatriptan Allergy (Unknown, Verified 01/23/23 13:53) unknown trazodone [TRAZODONE] Allergy (Unknown, Verified 01/23/23 13:53) UNKNOWN equate cough drops sugar free Allergy (Mild, Uncoded 11/30/22 21:32) Unknown HPI Asthma HPI Details 52-year-old lady, nonsmoker, followed for underlying severe persistent asthma with allergic component. She continues to use Xolair, Symbicort, duo nebs, and albuterol MDI with good control of her underlying symptoms. She denies recent exacerbations. [facility] Medical History (Updated 01/06/23 @ 11:38 by Cute Attack ID) PFO (patent foramen ovale) History of transesophageal echocardiography (LAN) Colitis Abnormal angiogram of head COVID-19 Asthma Thyroid disease GERD (gastroesophageal reflux disease) Anemia Aneurysm Surgical History (Updated 12/31/22 @ 11:16 by Nisha Romero RN) History of surgery of uterus H/O endoscopy History of H/O brain surgery History of colonoscopy Family History Father Diabetes Arthritis Diverticulitis Leukemia Mental health disorder Lung cancer Mother Anemia Arthritis Colon polyps Myocardial infarction Brother Crohn's disease Testicular cancer Brother Cancer Paternal Grandfather Leukemia Other Substance use disorder Social History Household Members: Significant Other Housing: House Are you a primary child care nurse to a significant other at home: No Do you presently have visiting nurse or other home services: No Alcohol intake: never Patient Tobacco Use Status: Former Tobacco user Tobacco use type: Cigarette e-Cigarette/Vaping Use: Never Used Advance Directives Date on File: 04/09/21 service: No 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al status: employed Cognitive needs: No Hearing needs: No Vision needs: Yes Review of Systems Const Denies daytime sleepiness, Denies excessive sweating, Denies fatigue, Denies fever(s), Denies lethargy, Denies malaise, Denies night sweats, Denies snoring and Denies weight loss Eyes Denies blurry vision and Denies itchy eyes ENT Denies nasal congestion, Denies post nasal drip, Denies sinus pain, Denies sinus pressure and Denies other ( Thrush) Card Denies chest pain, Denies pedal edema, Denies dyspnea, Denies orthopnea and Denies paroxysmal nocturnal dyspnea Resp Denies cough, Denies hemoptysis, Denies excessive phlegm production, Denies dyspnea, Denies snoring and Denies wheezing GI Denies abdominal pain and Denies heartburn Musc Denies myalgias, Denies arthralgias and Denies joint swelling Skin/Breast Denies rash Neuro Denies memory loss and Denies seizure-like activity Psych Denies abnormal sleep pattern, Denies anxiety and Denies memory loss Endo Denies excessive sweating, Denies fatigue and Denies heat intolerance Denny/Lymph Denies easy bruising Aller/Immun Denies itchy eyes, Denies seasonal rhinorrhea and Denies wheezing Physical Exam Vital Signs: Last Vital Signs Temp 99 F 01/23/23 13:49 Pulse 74 01/23/23 13:49 BP 118/82 01/23/23 13:49 Pulse Ox 99 01/23/23 13:49 Oxygen Delivery Method Room Air 01/23/23 13:49 BMI result Body Mass Index 35.0 Const General: no acute distress and alert Nutritional Appearance: not obese Orientation/consciousness: Other orientation findings ( oriented) HEENT Head: Yes atraumatic Eyes General: appearance normal, both eyes and all related structures Sclerae: sclerae normal EOM: EOMs intact bilaterally Neck Neck: Yes supple Lymphatic: no lymphadenopathy noted Resp Effort & Inspection: normal respiratory effort and no use of accessory muscles Auscultation: clear to auscultation bilaterally Cardio Rate: regular rate Rhythm: regular rhythm Heart sounds: no gallops, no murmurs and no rubs Skin General skin exam: other ( warm) Extrem General: No clubbing, No cyanosis and No edema Assessment & Plan Assessment & Plan (1) Severe persistent allergic asthma: Code(s): J45.50 - Severe persistent asthma, uncomplicated Plan: Well controlled on current regimen of Xolair, Symbicort, duo nebs, and albuterol MDI. Continue current regimen. (2) Environmental allergies: Code(s): Z91.09 - Other allergy status, other than to drugs and biological substances Plan: Will control on Xolair. Continue current regimen. Coding Level of Care Code Est Pt Level 4 (28998) Diagnoses Severe persistent allergic asthma J45.50 Environmental allergies Z91.09
== END 2023-01-23 14:04 | disposition home or self-care (01) ==
PROVIDERS: PCP Internal Medicine; Visit Provider Internal Medicine Pulmonary Disease
DX: J45.50 Severe persistent asthma, uncomplicated (principal); Z91.09 Other allergy status, other than to drugs and biological substances
CPT/HCPCS: 99214

== ENCOUNTER 2023-01-26 11:14 | Emergency (ER) | payer OTHER, SELFPAY ==
--- NOTE | ~2023-01-26 | XR_ITS ---
EXAMINATION: XR CHEST CLINICAL INFORMATION: Cough COMPARISON: Chest 05/08/2022, 04/24/2022, 03/24/2022 TECHNIQUE: 2 views of the chest were obtained. 1348 FINDINGS: The lungs are well expanded. There is a suggestion of mild subtle patchy opacity in the right mid and lower lung versus prominent peribronchial thickening. No pleural effusion. No significant abnormality is noted involving the heart, mediastinum or soft tissues. There is mild compression of mid thoracic vertebral bodies. XR/XR chest 2V IMPRESSION: Mild subtle patchy opacity in the right mid and lower lung versus prominent peribronchial thickening. This may represent early pneumonia versus bronchitis.
--- NOTE | 2023-01-26 11:16 | ECG_ITS ---
Test Reason : chest pain Blood Pressure : / mmHG Vent. Rate : 070 BPM Atrial Rate : 070 BPM P-R Int : 158 ms QRS Dur : 086 ms QT Int : 378 ms P-R-T Axes : 030 -09 000 degrees QTc Int : 408 ms Normal sinus rhythm Cannot rule out Anterior infarct , age undetermined Abnormal ECG When compared with ECG of 30-NOV-2022 21:57, No significant change was found Referred By: Mary Lou Sagastume Electronically Signed By:MYNOR CROWE
[2023-01-26 11:51] VITALS: BP 155/85; PULSE 71; RESP 20; TEMP 37.1; O2SAT 98; BMI 35.2
--- NOTE | 2023-01-26 11:52 | ED_ITS ---
HPI - General Adult General Chief complaint: Upper Respiratory Symptoms Stated complaint: Chest tightness/Diziness/Headache Time Seen by Provider: 01/26/23 12:47 Source: patient Mode of arrival: ambulatory Limitations: no limitations History of Present Illness HPI narrative: Patient with recent cough for the past 4 days. Coughing and chest pain, today at work she felt lightheaded and felt like she was going to pass out. Onset (ago): day(s) Related Data Home Medications Medication Instructions Recorded Confirmed famotidine 20 mg tablet 40 mg PO DAILY 10/16/22 12/31/22 omalizumab 150 mg subcutaneous 150 mg subcut Q4W 10/29/22 12/31/22 solution (Xolair) Previous Rx's Medication Instructions Recorded ProAir HFA 90 mcg/actuation 2 puff inhalation Q4H #8.5 grams 02/19/22 aerosol inhaler (albuterol sulfate) fluticasone propionate 50 2 spray intranasal BID 30 days #16 08/13/22 mcg/actuation nasal grams spray,suspension (Flonase Allergy Relief) ipratropium 0.5 mg-albuterol 3 mg 3 ml inhalation Q4-6H PRN wheezing 10/14/22 (2.5 mg base)/3 mL nebulization 30 days #270 mL soln loratadine 10 mg tablet 10 mg PO DAILY 30 days #30 tabs 11/10/22 lidocaine 5 % topical patch 1 patch topical DAILY 30 days #30 12/03/22 ea naproxen 500 mg tablet 500 mg PO BID PRN pain 30 days #60 12/03/22 tabs levothyroxine 175 mcg tablet 175 mcg PO QAM 90 days #90 tabs 12/30/22 bupropion HCl 150 mg tablet,12 hr 150 mg PO QAM #90 tabs 01/18/23 sustained-release (Wellbutrin SR) Allergies Allergy/AdvReac Type Severity Reaction Status Date / Time niacin Allergy Intermediate skin Verified 01/23/23 13:53 [Niaspan Extended-Release] blisters tramadol Allergy Intermediate seizures Verified 01/23/23 13:53 barley [BARLEY] Allergy Unknown UNKNOWN Verified 01/23/23 13:53 fluticasone [Advair Diskus] Allergy Unknown Shortness Verified 01/23/23 13:53 of Breath ibuprofen Allergy Unknown Swelling Verified 01/23/23 13:53 naratriptan Allergy Unknown unknown Verified 01/23/23 13:53 Penicillins [PENICILLINS] Allergy Unknown Unknown Verified 01/23/23 13:53 sumatriptan Allergy Unknown unknown Verified 01/23/23 13:53 trazodone [TRAZODONE] Allergy Unknown UNKNOWN Verified 01/23/23 13:53 equate cough drops sugar free Allergy Mild Unknown Uncoded 11/30/22 21:32 Review of Systems 2 Review of Systems: Yes all other systems are reviewed and are negative Neurologic: Denies Sensory deficit (Neuro) [facility] Past Medical History Medical History PFO (patent foramen ovale) History of transesophageal echocardiography (LAN) Colitis Abnormal angiogram of head COVID-19 Asthma Thyroid disease GERD (gastroesophageal reflux disease) Anemia Aneurysm Surgical History History of surgery of uterus H/O endoscopy History of H/O brain surgery History of colonoscopy Family History Family History Father Diabetes Arthritis Diverticulitis Leukemia Mental health disorder Lung cancer Mother Anemia Arthritis Colon polyps Myocardial infarction Brother Crohn's disease Testicular cancer Brother Cancer Paternal Grandfather Leukemia Other Substance use disorder Social History Social History Household Members: Significant Other Housing: House Are you a primary care navigator to a significant other at home: No Do you presently have visiting nurse or other home services: No Alcohol intake: never Patient Tobacco Use Status: Former Tobacco user Tobacco use type: Cigarette e-Cigarette/Vaping Use: Never Used Advance Directives: Yes Advance Directives on File: Yes Advance Directives Date on File: 04/09/21 service: No 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al status: employed Cognitive needs: No Hearing needs: No Vision needs: Yes Physical Exam ED Vital Signs: Vital Signs - 24 hr 01/26/23 11:51 01/26/23 14:33 Temperature 98.7 F Pulse Rate 71 72 Respiratory Rate 20 16 Blood Pressure 155/85 H 150/78 H Pulse Oximetry 98 97 Oxygen Delivery Method Room Air Room Air BMI result Body Mass Index 35.2 Const General: comfortable Nutritional Appearance: obese Orientation/consciousness: oriented to person and patient oriented x3 Limitations: no limitations HENMT Head: Yes normal to inspection Ears: external ears normal General nose exam: Normal external nose present Mouth: Normal oral and palatal mucosa present and oropharynx normal Throat: Yes posterior oropharynx normal Eyes General: appearance normal, both eyes and all related structures Neck Neck: Yes normal visual inspection Chest Chest palpation & inspection: normal inspection of the chest Resp Auscultation: clear to auscultation bilaterally Cardio Jugular venous distension: no JVD Rate: regular rate Rhythm: regular rhythm Heart sounds: S1 normal heart sound present and S2 normal heart sound present GI Inspection: Yes normal to inspection Palpation (GI): Soft to palpation, nontender and No hepatosplenomegaly present Auscultation: normal bowel sounds General: Yes no CVA tenderness Back/Spine/Pelvis Back: no CVA tenderness Skin General skin exam: no rashes or lesions noted Neuro General: oriented to person and patient oriented x3 Cranial nerves: Yes CN's II-XII intact bilaterally Motor exam (neuro): 5/5 motor strength present throughout Sensory Exam: No Sensory deficit (Neuro) Extrem General: Yes normal to inspection Psych Appearance: grossly normal Course Course Course Narrative: This is an RME: Additional HPI, ROS, PE not included below will be deferred to primary provider. 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 Pt states that she was seen by pulmonology last thursday and was told she may have bronchitis. Reevaluation(s) Reevaluation #1: Workup negative for infection, EKG and bloods normal. Will not start abx Time: 15:24 Medications Administered Discontinued Medications Generic Name Dose Route Start Last Admin Trade Name Freq PRN Reason Stop Dose Admin Sodium Chloride 1,000 mls @ 500 mls/hr 01/26/23 13:00 01/26/23 13:34 Ns IVCONT 01/26/23 14:59 500 mls/hr .Q2H MATTHEW Administration Medical Decision Making Differential Diagnosis Differential Diagnoses: The differential diagnosis associated with the presentation includes (chest pain, pneumonia, viral bronchitis) Admission/Observation Consideration of admission/observation: Escalation of care including admission/observation considered (upon arrival patient considered for admission) Lab Data 01/26/23 13:33 01/26/23 13:33 Labs: Lab Results 01/26/23 01/26/23 Range/Units 13:27 13:33 WBC 6.8 (4.8-10.8) X10*3/uL RBC 4.44 (4.20-5.50) X10*6/uL Hgb 12.3 (12.0-16.0) g/dl Hct 36.6 L (37.0-47.0) % MCV 82.4 (80.0-98.0) fL MCH 27.7 (27.0-33.0) pg MCHC 33.6 (31.0-35.0) g/dl RDW 13.8 (11.0-16.0) % Plt Count 216 (160-400) X10*3/uL MPV 10.2 (9.4-12.3) fL Immature Gran % (Auto) 0.3 (0.0-0.4) % Neut % (Auto) 56.2 (45-73) % Lymph % (Auto) 31.1 (20-40) % [place] % (Auto) 6.6 (2-11) % Eos % (Auto) 4.9 H (0-4) % Baso % (Auto) 0.9 (0-2) % Lymph # (Auto) 2.1 (1.2-4.9) X10*3/uL [place] # (Auto) 0.5 (0.1-1.2) X10*3/uL Eos # (Auto) 0.3 (0.0-0.4) X10*3/uL Baso # (Auto) 0.1 (0.0-0.2) X10*3/uL Abs Immat Gran (auto) 0.02 (0.00-0.03) X10*3/uL Absolute Neuts (auto) 3.8 (2.0-8.3) x10*3/uL Absolute Nucleated RBC 0.000 (0.0-0.012) X10*3/uL Nucleated RBC % (auto) 0.0 (0.0-0.2) /100WBC Sodium 140 (135-145) mmol/L Potassium 3.7 (3.3-5.1) mmol/L Chloride 110 H (96-108) mmol/L Carbon Dioxide 21 L (22-29) mmol/L Anion Gap 13 (12-20) BUN 10 (9-16) mg/dL Creatinine 0.64 (0.5-1.4) mg/dL Estim Creat Clear Calc 117.8 Estimated GFR > 60 Random Glucose 86 (60-115) mg/dL Calcium 8.7 D (8.4-10.2) mg/dL Influenza Type A (PCR) NEGATIVE (Negative) Influenza Type B (PCR) NEGATIVE (Negative) RSV RNA Qual (PCR) NEGATIVE (Negative) SARS-CoV-2 RNA (RT-PCR) NEGATIVE (Negative) Independent Interpretation I performed an independent interpretation of an: Plain X-Ray (no infiltrate) Chronic Conditions Patient?s care impacted by: Other (obesity) Discharge Plan Discharge Clinical Impression: Acute bronchitis, viral, Weakness Patient Disposition: Home, Self-Care Instructions: Acute Bronchitis (ED), Weakness (ED) Prescriptions: No Action albuterol sulfate [ProAir HFA] 90 mcg/actuation HFA aerosol inhaler 2 puff inhalation Q4H Qty: 8.5 0RF fluticasone propionate [Flonase Allergy Relief] 50 mcg/actuation spray,suspension 2 spray intranasal BID 30 Days Qty: 16 3RF Rx Instructions: administer into each nostril loratadine 10 mg tablet 10 mg PO DAILY 30 Days Qty: 30 6RF levothyroxine 175 mcg tablet 175 mcg PO QAM 90 Days Qty: 90 0RF bupropion HCl [Wellbutrin SR] 150 mg tablet sustained-release 12 hr 150 mg PO QAM Qty: 90 0RF Xolair 150 mg recon soln 150 mg subcut Q4W naproxen 500 mg tablet 500 mg PO BID PRN (Reason: pain) 30 Days Qty: 60 0RF lidocaine 5 % adhesive patch,medicated 1 patch topical DAILY 30 Days Qty: 30 0RF Rx Instructions: leave on most painful area for up to 12 hrs ipratropium-albuterol 0.5 mg-3 mg(2.5 mg base)/3 mL solution for nebulization 3 ml inhalation Q4-6H PRN (Reason: wheezing) 30 Days Qty: 270 6RF famotidine 20 mg tablet 40 mg PO DAILY Referrals: Thee Tay MD [Primary Care Provider] - 5 days
[2023-01-26] MEDS: 0.9 % Sodium Chloride 1,000 ML 500 ML IVCONT (13:34)
[2023-01-26 13:37] LABS: MANUAL DIFF FLAG NO
[2023-01-26 13:39] LABS: Basophils Absolute Auto 0.1 X10*3/uL (0.0-0.2); Basophils Percent Auto 0.9 % (0-2); Eosinophils Absolute Auto 0.3 X10*3/uL (0.0-0.4); Eosinophils Percent Auto 4.9 % (0-4); Hematocrit 36.6 % (37.0-47.0); Hemoglobin 12.3 g/dl (12.0-16.0); Imm Gran Abs Auto 0.02 X10*3/uL (0.00-0.03); Imm Gran Pct Auto 0.3 % (0.0-0.4); Lymphocytes Absolute Auto 2.1 X10*3/uL (1.2-4.9); Lymphocytes Percent Auto 31.1 % (20-40); Mean Corpuscular HGB Conc 33.6 g/dl (31.0-35.0); Mean Corpuscular Hemoglobin 27.7 pg (27.0-33.0); Mean Corpuscular Volume 82.4 fL (80.0-98.0); Mean Platelet Volume 10.2 fL (9.4-12.3); Monocytes Absolute Auto 0.5 X10*3/uL (0.1-1.2); Monocytes Percent Auto 6.6 % (2-11); Neutrophils Absolute Auto 3.8 x10*3/uL (2.0-8.3); Neutrophils Percent Auto 56.2 % (45-73); Platelet Count 216 X10*3/uL (160-400); Red Blood Count 4.44 X10*6/uL (4.20-5.50); Red Cell Distribution Width 13.8 % (11.0-16.0); White Blood Count 6.8 X10*3/uL (4.8-10.8)
[2023-01-26 13:57] LABS: Anion Gap 13 (12-20); Blood Urea Nitrogen 10 mg/dL (9-16); Calcium 8.7 mg/dL (8.4-10.2); Carbon Dioxide 21 mmol/L (22-29); Chloride 110 mmol/L (96-108); Creatinine Clr Calc Pharmacy 117.8; Estimated Glomerular Filt Rate > 60; Glucose Random 86 mg/dL (60-115); Potassium 3.7 mmol/L (3.3-5.1); Sodium 140 mmol/L (135-145)
[2023-01-26 14:16] LABS: Influenza A PCR NEGATIVE (Negative); Influenza B PCR NEGATIVE (Negative); Resp Syncy Virus RNA Qual PCR NEGATIVE (Negative); SARS COV2 PCR INHOUSE NEGATIVE (Negative)
[2023-01-26 14:33] VITALS: BP 150/78; PULSE 72; RESP 16; O2SAT 97
[2023-01-26 15:42] VITALS: BP 129/87; PULSE 90; RESP 16; TEMP 36.7; O2SAT 98
== END 2023-01-26 16:34 | disposition home or self-care (01) ==
PROVIDERS: Emergency Provider Emergency Medicine; PCP Internal Medicine
DX: J20.8 Acute bronchitis due to other specified organisms (principal); R07.89 Other chest pain; R42 Dizziness and giddiness; R51.9 Headache, unspecified; R05.9 Cough, unspecified; R53.1 Weakness; Z20.822 Contact with and (suspected) exposure to COVID-19; Z20.828 Contact with and (suspected) exposure to other viral communicable diseases; Z79.899 Other long term (current) drug therapy
CPT/HCPCS: 0241U; 71046; 80048; 85025; 93005; 99283; 99284

== ENCOUNTER 2023-01-28 08:09 | Outpatient (AMB) | payer OTHER, SELFPAY ==
[2023-01-28 08:12] VITALS: BP 138/74; PULSE 88; O2SAT 97; BMI 35.2
--- NOTE | 2023-01-28 08:12 | A.OFFPC_ITS ---
Vital Signs 01/28/23 08:12 Height 5 ft 5 in Weight 211 lb 6 oz BMI 35.2 BP 138/74 Blood Pressure Location Rt brachial Position Sitting Pulse 88 Pulse Source Pulse Oximeter Pulse Oximetry (%) 97 Oxygen Delivery Method Room Air Intake Visit Reasons: W/C follow up ~ Allergies niacin [Niaspan Extended-Release] Allergy (Intermediate, Verified 01/28/23 08:12) skin blisters tramadol Allergy (Intermediate, Verified 01/28/23 08:12) seizures barley [BARLEY] Allergy (Unknown, Verified 01/28/23 08:12) UNKNOWN fluticasone [Advair Diskus] Allergy (Unknown, Verified 01/28/23 08:12) Shortness of Breath ibuprofen Allergy (Unknown, Verified 01/28/23 08:12) Swelling naratriptan Allergy (Unknown, Verified 01/28/23 08:12) unknown Penicillins [PENICILLINS] Allergy (Unknown, Verified 01/28/23 08:12) Unknown sumatriptan Allergy (Unknown, Verified 01/28/23 08:12) unknown trazodone [TRAZODONE] Allergy (Unknown, Verified 01/28/23 08:12) UNKNOWN equate cough drops sugar free Allergy (Mild, Uncoded 11/30/22 21:32) Unknown Tobacco use date assessed: 01/28/23 Dental Screening Dental Screen Date: 01/28/23 Did you have a dental visit in the last 12 months?: No Did you have a dental problem in the last 6 months where you did not have access to dental care?: No Was dental information given to patient?: Patient has dentist HPI W/C follow up ~ HPI Details Patient is a 53-year-old female this is a work men comp follow-up visit 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 She still feel very dizzy when she do that. She is currently having bronchitis and can not go back to work this week. She will bring paperwork for that also when she will return for follow-up visit in 10 days. [facility] Medical History PFO (patent foramen ovale) History of transesophageal echocardiography (LAN) Colitis Abnormal angiogram of head COVID-19 Asthma Thyroid disease GERD (gastroesophageal reflux disease) Anemia Aneurysm Surgical History History of surgery of uterus H/O endoscopy History of H/O brain surgery History of colonoscopy Family History Father Diabetes Arthritis Diverticulitis Leukemia Mental health disorder Lung cancer Mother Anemia Arthritis Colon polyps Myocardial infarction Brother Crohn's disease Testicular cancer Brother Cancer Paternal Grandfather Leukemia Other Substance use disorder Social History Household Members: Significant Other Housing: House Are you a primary career services representative to a significant other at home: No Do you presently have visiting nurse or other home services: No Alcohol intake: never Patient Tobacco Use Status: Former Tobacco user Tobacco use type: Cigarette e-Cigarette/Vaping Use: Never Used Advance Directives Date on File: 04/09/21 service: No 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al status: employed Cognitive needs: No Hearing needs: No Vision needs: Yes Questionnaire PHQ-9 Over the last 2 weeks, how often have you been bothered by any of the following problems? 1. Little interest or pleasure in doing things: not at all 2. Feeling down, depressed, or hopeless: not at all 3. Trouble falling or staying asleep, or sleeping too much: more than half the days 4. Feeling tired or having little energy: more than half the days 5. Poor appetite or overeating: more than half the days 6. Feeling bad about yourself - or that you are a failure or have let yourself or your family down: not at all 7. Trouble concentrating on things, such as reading the newspaper or watching television: several days 8. Moving or speaking so slowly that other people could have noticed. Or the opposite - being so fidgety or restless that you have been moving around a lot more than usual: not at all 9. Thoughts that you would be better off or of hurting yourself in some way: not at all Total score: 7 Depression Screening Interpretation: Negative Depression Screening Done: Yes [id number] - PHQ-9 Billing: Yes Source: Developed by Dwayne Spauldinget B.W. Edmond, Thor Del Cid and colleagues, with an educational phil from [employer]. Thrive Questionnaire Date Thrive assessed: 11/13/21 AUDIT C Alcohol Use Questionnaire (AUDIT-C) 1. How often do you have a drink containing alcohol?: Never 3. How often do you have six or more drinks on one occasion?: Never Total Score: 0 Score Reviewed/Action Taken: Yes MARKO-7 AMB Questionnaire MARKO-7 Date MARKO - 7 assessed: 11/13/21 Source: Developed by Drs. Masood Arredondo, Lesly Pruitt, Thor manriquez nd colleagues, with an educational phil from [employer]. Review of Systems Const Denies fever(s) ENT Denies epistaxis and Denies nasal discharge Card Denies chest pain Resp Denies hemoptysis GI Denies diarrhea and Denies nausea Skin/Breast Denies rash Neuro Reports no additional complaints Psych Reports no additional complaints Endo Reports no additional complaints Physical exam (Primary Care) Vital Signs: Last Vital Signs Pulse 88 01/28/23 08:12 BP 138/74 01/28/23 08:12 Pulse Ox 97 01/28/23 08:12 Oxygen Delivery Method Room Air 01/28/23 08:12 BMI result Body Mass Index 35.2 Tobacco/Smoking Status: Tobacco use Status Tobacco use date assessed 01/28/23 01/28/23 08:13 Patient Tobacco Use Status Former Tobacco user 01/28/23 08:13 Tobacco use type Cigarette 01/28/23 08:13 e-Cigarette/Vaping Use Never Used 01/28/23 08:13 PHQ-9: PHQ-9 Score PHQ-9: Total score 7 01/28/23 08:36 Depression Screening Interpretation: Negative Thrive Assessment: Date of Thrive Assessment Date Thrive assessed 11/13/21 01/28/23 08:13 Const General: cooperative, comfortable and no acute distress Orientation/consciousness: patient oriented x3 HENMT Head: Yes normocephalic Eyes General: appearance normal, both eyes and all related structures Neck Neck: Yes supple Resp Effort & Inspection: normal respiratory effort, no cough and no stridor Cardio Rhythm: regular rhythm Heart sounds: S1 normal heart sound present and S2 normal heart sound present Skin General skin exam: turgor normal Neuro General: patient oriented x3, tone normal and moves all extremities Extrem Right lower extremity: no edema Left lower extremity: no edema Assessment and Plan Assessment & Plan (1) Work related injury: Code(s): Y99.0 - Civilian activity done for income or pay (2) Paresthesias in left hand: Code(s): R20.2 - Paresthesia of skin (3) Radiculitis of left cervical region: Code(s): M54.12 - Radiculopathy, cervical region Plan Patient is a 53-year-old female this is a work men comp follow-up visit 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 She still feel very dizzy when she do that. She is currently having bronchitis and can not go back to work this week. She will bring paperwork for that also when she will return for follow-up visit in 10 days. Coding Level of Care Code Est Pt Level 3 (52234) Diagnoses Work related injury Y99.0 Paresthesias in left hand R20.2 Radiculitis of left cervical region M54.12
== END 2023-01-28 08:43 | disposition home or self-care (01) ==
PROVIDERS: PCP Internal Medicine; Visit Provider Internal Medicine
DX: R20.2 Paresthesia of skin (principal); Y99.0 Civilian activity done for income or pay; M54.12 Radiculopathy, cervical region
CPT/HCPCS: 99213

== ENCOUNTER 2023-01-28 08:36 | Outpatient (AMB) | payer OTHER, MEDICAID, SELFPAY ==
--- NOTE | 2023-01-28 08:37 | MHC.PC.OV ---
Intake Visit Reasons: sick f/u ~ Allergies niacin [Niaspan Extended-Release] Allergy (Intermediate, Verified 01/28/23 08:12) skin blisters tramadol Allergy (Intermediate, Verified 01/28/23 08:12) seizures barley [BARLEY] Allergy (Unknown, Verified 01/28/23 08:12) UNKNOWN fluticasone [Advair Diskus] Allergy (Unknown, Verified 01/28/23 08:12) Shortness of Breath ibuprofen Allergy (Unknown, Verified 01/28/23 08:12) Swelling naratriptan Allergy (Unknown, Verified 01/28/23 08:12) unknown Penicillins [PENICILLINS] Allergy (Unknown, Verified 01/28/23 08:12) Unknown sumatriptan Allergy (Unknown, Verified 01/28/23 08:12) unknown trazodone [TRAZODONE] Allergy (Unknown, Verified 01/28/23 08:12) UNKNOWN equate cough drops sugar free Allergy (Mild, Uncoded 11/30/22 21:32) Unknown Medication List - Last Reconciled 01/28/23 by Thee Tay MD azithromycin For 250 mg dose pack: take 500 mg today (day 1), then 250 mg for 4 days (days 2-5) PO bupropion HCl (Wellbutrin SR) 150 mg PO QAM famotidine 40 mg PO DAILY fluticasone propionate 50 mcg/actuation (Flonase Allergy Relief) 2 sprays intranasal BID 30 days ipratropium-albuterol 0.5 mg-3 mg(2.5 mg base)/3 mL 3 mL inhalation Q4-6H PRN 30 days levothyroxine 175 mcg PO QAM 90 days lidocaine 5% 1 patch topical DAILY 30 days loratadine 10 mg PO DAILY 30 days naproxen 500 mg PO BID PRN 30 days omalizumab (Xolair) 150 mg subcut Q4W ProAir HFA 90 mcg/actuation (albuterol sulfate) 2 puffs inhalation Q4H NS Tobacco use date assessed: 01/28/23 HPI sick f/u ~ HPI Details Patient is a 53-year-old female came in today to be evaluated for cough and congestion Patient was in emergency room January 26 she had a chest x-ray done which showed early signs of developing pneumonia right lung or bronchitis She was started on azithromycin when she call her medical program specialist after discharge from emergency room. She still have 4 days of azithromycin left. Patient is coughing and is having sore body. Patient says that she did went to work yesterday but she could not go to work today. She is requesting some time off. Patient is already on workman's comp limited work. She said she will bring paperwork in 10 days when she will come in for follow-up to be filled for this illness as well. I have sent prednisone for the patient she may take that for 5 days, and I have also sent another Z-Rodrigo if her symptoms continue she may repeat the antibiotic. Follow-up in 10 days. Vital signs Blood pressure 138/72 Patient is afebrile Respirations 16 Pulse 80 regular [facility] Medical History PFO (patent foramen ovale) History of transesophageal echocardiography (LAN) Colitis Abnormal angiogram of head COVID-19 Asthma Thyroid disease GERD (gastroesophageal reflux disease) Anemia Aneurysm Surgical History History of surgery of uterus H/O endoscopy History of H/O brain surgery History of colonoscopy Family History Father Diabetes Arthritis Diverticulitis Leukemia Mental health disorder Lung cancer Mother Anemia Arthritis Colon polyps Myocardial infarction Brother Crohn's disease Testicular cancer Brother Cancer Paternal Grandfather Leukemia Other Substance use disorder Social History Household Members: Significant Other Housing: House Are you a primary medicare insurance specialist to a significant other at home: No Do you presently have visiting nurse or other home services: No Alcohol intake: never Patient Tobacco Use Status: Former Tobacco user Tobacco use type: Cigarette e-Cigarette/Vaping Use: Never Used Advance Directives Date on File: 04/09/21 service: No 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al status: employed Cognitive needs: No Hearing needs: No Vision needs: Yes Questionnaire Thrive Questionnaire Date Thrive assessed: 11/13/21 MARKO-7 AMB Questionnaire MARKO-7 Date MARKO - 7 assessed: 11/13/21 Source: Developed by Drs. Masood Arredondo, Lesly Pruitt, Thor Del Cid and colleagues, with an educational phil from [employer]. Review of Systems Const Reports as per HPI Eyes Denies change in vision ENT Denies bleeding gums, Denies dental pain, Denies ear discharge and Denies mouth pain Card Denies chest pain at rest, Denies chest pain with activity, Denies syncope and Denies irregular heart rhythm Resp Denies hemoptysis and Denies stridor GI Denies diarrhea and Denies vomiting Musc Denies as per HPI Skin/Breast Denies skin ulcer and Denies sores Neuro Denies syncope and Denies memory loss Psych Denies memory loss, Denies homicidal ideation and Denies suicidal ideation Physical exam (Primary Care) Tobacco/Smoking Status: Tobacco use Status Tobacco use date assessed 01/28/23 01/28/23 08:38 Patient Tobacco Use Status Former Tobacco user 01/28/23 08:38 Tobacco use type Cigarette 01/28/23 08:38 e-Cigarette/Vaping Use Never Used 01/28/23 08:38 Thrive Assessment: Date of Thrive Assessment Date Thrive assessed 11/13/21 01/28/23 08:38 Const General: cooperative and comfortable Orientation/consciousness: patient oriented x3 HENMT Head: Yes normocephalic and Yes atraumatic Ears: external ears normal General nose exam: Normal external nose present Mouth: Normal oral and palatal mucosa present Eyes Eyelids: Yes eyelids normal Pupils: Equal, round and reactive pupils present EOM: EOMs intact bilaterally Neck Neck: Yes trachea midline and Yes supple Resp Auscultation: clear to auscultation bilaterally Cardio Heart sounds: S1 normal heart sound present and S2 normal heart sound present GI Auscultation: normal bowel sounds Skin General skin exam: elasticity normal and turgor normal Neuro General: patient oriented x3 and moves all extremities Cranial nerves: Yes Equal, round and reactive pupils present Gait exam (Neuro): Normal gait present Extrem Right upper extremity: no edema Psych Mental Status: mental status grossly normal Assessment and Plan Assessment & Plan (1) Acute pneumonia: Code(s): J18.9 - Pneumonia, unspecified organism (2) Hospital discharge follow-up: Code(s): Z09 - Encounter for follow-up examination after completed treatment for conditions other than malignant neoplasm Plan Patient is a 53-year-old female came in today to be evaluated for cough and congestion Patient was in emergency room January 26 she had a chest x-ray done which showed early signs of developing pneumonia right lung or bronchitis She was started on azithromycin when she call her medical program specialist after discharge from emergency room. She still have 4 days of azithromycin left. Patient is coughing and is having sore body. Patient says that she did went to work yesterday but she could not go to work today. She is requesting some time off. Patient is already on workman's comp limited work. She said she will bring paperwork in 10 days when she will come in for follow-up to be filled for this illness as well. I have sent prednisone for the patient she may take that for 5 days, and I have also sent another Z-Rodrigo if her symptoms continue she may repeat the antibiotic. Follow-up in 10 days. Medications: New azithromycin Take 2 tablets today then 1 daily 250 mg PO ONCE 6 tabs 0RF 5 days J06.9 - Acute upper respiratory infection, unspecified prednisone 10 mg PO DAILY 5 tabs 0RF 5 days Coding Level of Care Code Est Pt Level 4 (51361) Diagnoses Acute pneumonia J18.9 Hospital discharge follow-up Z09
== END 2023-01-28 08:44 | disposition home or self-care (01) ==
LOC: HO.HMGC 08:36
PROVIDERS: PCP Internal Medicine; Visit Provider Internal Medicine
DX: J18.9 Pneumonia, unspecified organism (principal); Z09 Encounter for follow-up examination after completed treatment for conditions other than malignant neoplasm
CPT/HCPCS: 99214

== ENCOUNTER 2023-02-13 13:03 | Outpatient (AMB) | payer OTHER, MEDICAID, SELFPAY ==
--- NOTE | 2023-02-13 13:12 | A.OFFPC_ITS ---
Intake Visit Reasons: Follow up Allergies niacin [Niaspan Extended-Release] Allergy (Intermediate, Verified 02/13/23 13:12) skin blisters tramadol Allergy (Intermediate, Verified 02/13/23 13:12) seizures barley [BARLEY] Allergy (Unknown, Verified 02/13/23 13:12) UNKNOWN fluticasone [Advair Diskus] Allergy (Unknown, Verified 02/13/23 13:12) Shortness of Breath ibuprofen Allergy (Unknown, Verified 02/13/23 13:12) Swelling naratriptan Allergy (Unknown, Verified 02/13/23 13:12) unknown Penicillins [PENICILLINS] Allergy (Unknown, Verified 02/13/23 13:12) Unknown sumatriptan Allergy (Unknown, Verified 02/13/23 13:12) unknown trazodone [TRAZODONE] Allergy (Unknown, Verified 02/13/23 13:12) UNKNOWN equate cough drops sugar free Allergy (Mild, Uncoded 11/30/22 21:32) Unknown Medication List - Last Reconciled 02/13/23 by Thee Tay MD bupropion HCl (Wellbutrin SR) 150 mg PO QAM famotidine 40 mg PO DAILY fluticasone propionate 50 mcg/actuation (Flonase Allergy Relief) 2 sprays intranasal BID 30 days ipratropium-albuterol 0.5 mg-3 mg(2.5 mg base)/3 mL 3 mL inhalation Q4-6H PRN 30 days levothyroxine 175 mcg PO QAM 90 days lidocaine 5% 1 patch topical DAILY 30 days loratadine 10 mg PO DAILY 30 days naproxen 500 mg PO BID PRN 30 days omalizumab (Xolair) 150 mg subcut Q4W ProAir HFA 90 mcg/actuation (albuterol sulfate) 2 puffs inhalation Q4H NS Tobacco use date assessed: 02/13/23 Dental Screening Dental Screen Date: 02/13/23 Did you have a dental visit in the last 12 months?: Yes Did you have a dental problem in the last 6 months where you did not have access to dental care?: No Was dental information given to patient?: Patient has dentist HPI Follow up HPI Details Follow-up pneumonia/bronchitis Patient is feeling much better she is finished with prednisone and antibiotic No shortness of breath On physical exam her lungs are clear Vital signs: Blood pressure is 128/72 BMI 35.5 Weight 213 lb 8 oz Pulse is 93 Pulse ox 97 room air [facility] Medical History PFO (patent foramen ovale) History of transesophageal echocardiography (LAN) Colitis Abnormal angiogram of head COVID-19 Asthma Thyroid disease GERD (gastroesophageal reflux disease) Anemia Aneurysm Surgical History History of surgery of uterus H/O endoscopy History of H/O brain surgery History of colonoscopy Family History Father Diabetes Arthritis Diverticulitis Leukemia Mental health disorder Lung cancer Mother Anemia Arthritis Colon polyps Myocardial infarction Brother Crohn's disease Testicular cancer Brother Cancer Paternal Grandfather Leukemia Other Substance use disorder Social History Household Members: Significant Other Housing: House Are you a primary patient care coordinator to a significant other at home: No Do you presently have visiting nurse or other home services: No Alcohol intake: never Patient Tobacco Use Status: Former Tobacco user Tobacco use type: Cigarette e-Cigarette/Vaping Use: Never Used Advance Directives Date on File: 04/09/21 service: No 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al status: employed Cognitive needs: No Hearing needs: No Vision needs: Yes Questionnaire Thrive Questionnaire Date Thrive assessed: 11/13/21 AUDIT C Alcohol Use Questionnaire (AUDIT-C) 1. How often do you have a drink containing alcohol?: Never 3. How often do you have six or more drinks on one occasion?: Never Total Score: 0 Score Reviewed/Action Taken: Yes MARKO-7 AMB Questionnaire MARKO-7 Date MARKO - 7 assessed: 11/13/21 Source: Developed by Drs. Masood Arredondo, Lesly Pruitt, Thor Del Cid and colleagues, with an educational phil from [employer]. Review of Systems Const Denies chills and Denies fever(s) ENT Denies epistaxis and Denies nasal discharge Card Denies chest pain Resp Denies chest congestion, Denies cough and Denies hemoptysis GI Denies diarrhea and Denies nausea Skin/Breast Denies rash Neuro Reports no additional complaints Psych Reports no additional complaints Endo Reports no additional complaints Physical exam (Primary Care) Tobacco/Smoking Status: Tobacco use Status Tobacco use date assessed 02/13/23 02/13/23 13:13 Patient Tobacco Use Status Former Tobacco user 02/13/23 13:13 Tobacco use type Cigarette 02/13/23 13:13 e-Cigarette/Vaping Use Never Used 02/13/23 13:13 Thrive Assessment: Date of Thrive Assessment Date Thrive assessed 11/13/21 02/13/23 13:13 Const General: cooperative, comfortable and no acute distress Orientation/consciousness: patient oriented x3 HENMT Head: Yes normocephalic Eyes General: appearance normal, both eyes and all related structures Neck Neck: Yes supple Resp Effort & Inspection: normal respiratory effort, no cough and no stridor Cardio Rhythm: regular rhythm Heart sounds: S1 normal heart sound present and S2 normal heart sound present Skin General skin exam: turgor normal Neuro General: patient oriented x3, tone normal and moves all extremities Extrem Right lower extremity: no edema Left lower extremity: no edema Assessment and Plan Assessment & Plan (1) Acute pneumonia: Code(s): J18.9 - Pneumonia, unspecified organism Plan Follow-up pneumonia/bronchitis Patient is feeling much better she is finished with prednisone and antibiotic No shortness of breath On physical exam her lungs are clear Vital signs: Blood pressure is 128/72 BMI 35.5 Weight 213 lb 8 oz Pulse is 93 Pulse ox 97 room air Coding Level of Care Code Est Pt Level 3 (97762) Diagnoses Acute pneumonia J18.9
== END 2023-02-13 14:32 | disposition home or self-care (01) ==
PROVIDERS: PCP Internal Medicine; Visit Provider Internal Medicine
DX: J18.9 Pneumonia, unspecified organism (principal)
CPT/HCPCS: 99213

== ENCOUNTER 2023-02-16 09:57 | Outpatient (REF) | payer OTHER, MEDICAID, SELFPAY | END 2023-02-16 09:58 | disposition home or self-care (01) | LOC: HO.MDS 09:57 | PROVIDERS: Visit Provider Internal Medicine Pulmonary Disease | DX: J45.50 Severe persistent asthma, uncomplicated (principal) | CPT/HCPCS: 96372; J2357 ==

== ENCOUNTER 2023-02-18 11:24 | Outpatient (AMB) | payer OTHER, MEDICAID, SELFPAY ==
[2023-02-18 11:30] VITALS: BP 126/70; PULSE 90; O2SAT 98; BMI 36.0
--- NOTE | 2023-02-18 11:30 | MHC.PC.OV ---
Vital Signs 02/18/23 11:30 Height 5 ft 5 in Weight 216 lb 2 oz BMI 36.0 BP 126/70 Blood Pressure Location Lt brachial Position Sitting Pulse 90 Pulse Source Pulse Oximeter Pulse Oximetry (%) 98 Oxygen Delivery Method Room Air Intake Visit Reasons: W/C Forms~ Allergies niacin [Niaspan Extended-Release] Allergy (Intermediate, Verified 02/18/23 11:31) skin blisters tramadol Allergy (Intermediate, Verified 02/18/23 11:31) seizures barley [BARLEY] Allergy (Unknown, Verified 02/18/23 11:31) UNKNOWN fluticasone [Advair Diskus] Allergy (Unknown, Verified 02/18/23 11:31) Shortness of Breath ibuprofen Allergy (Unknown, Verified 02/18/23 11:31) Swelling naratriptan Allergy (Unknown, Verified 02/18/23 11:31) unknown Penicillins [PENICILLINS] Allergy (Unknown, Verified 02/18/23 11:31) Unknown sumatriptan Allergy (Unknown, Verified 02/18/23 11:31) unknown trazodone [TRAZODONE] Allergy (Unknown, Verified 02/18/23 11:31) UNKNOWN equate cough drops sugar free Allergy (Mild, Uncoded 11/30/22 21:32) Unknown Tobacco use date assessed: 02/18/23 Dental Screening Dental Screen Date: 02/18/23 Did you have a dental visit in the last 12 months?: Yes Did you have a dental problem in the last 6 months where you did not have access to dental care?: No Was dental information given to patient?: Patient has dentist HPI W/C Forms~ HPI Details Patient came in today for paperwork She developed pneumonia and was off work from January 26 to February 02. Patient is well now and has gone back to work. [facility] Medical History PFO (patent foramen ovale) History of transesophageal echocardiography (LAN) Colitis Abnormal angiogram of head COVID-19 Asthma Thyroid disease GERD (gastroesophageal reflux disease) Anemia Aneurysm Surgical History History of surgery of uterus H/O endoscopy History of H/O brain surgery History of colonoscopy Family History Father Diabetes Arthritis Diverticulitis Leukemia Mental health disorder Lung cancer Mother Anemia Arthritis Colon polyps Myocardial infarction Brother Crohn's disease Testicular cancer Brother Cancer Paternal Grandfather Leukemia Other Substance use disorder Social History Household Members: Significant Other Housing: House Are you a primary child care education coordinator to a significant other at home: No Do you presently have visiting nurse or other home services: No Alcohol intake: never Patient Tobacco Use Status: Former Tobacco user Tobacco use type: Cigarette e-Cigarette/Vaping Use: Never Used Advance Directives Date on File: 04/09/21 service: No 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al status: employed Cognitive needs: No Hearing needs: No Vision needs: Yes Questionnaire Thrive Questionnaire Date Thrive assessed: 11/13/21 AUDIT C Alcohol Use Questionnaire (AUDIT-C) 1. How often do you have a drink containing alcohol?: Never 3. How often do you have six or more drinks on one occasion?: Never Total Score: 0 Score Reviewed/Action Taken: Yes MARKO-7 AMB Questionnaire MARKO-7 Date MARKO - 7 assessed: 11/13/21 Source: Developed by Drs. Masood Arredondo, Lesly Pruitt, Thor Del Cid and colleagues, with an educational phil from [employer]. Review of Systems Const All systems reviewed & are unremarkable except as noted in HPI and below Physical exam (Primary Care) Vital Signs: Last Vital Signs Pulse 90 02/18/23 11:30 BP 126/70 02/18/23 11:30 Pulse Ox 98 02/18/23 11:30 Oxygen Delivery Method Room Air 02/18/23 11:30 BMI result Body Mass Index 36.0 Tobacco/Smoking Status: Tobacco use Status Tobacco use date assessed 02/18/23 02/18/23 11:32 Patient Tobacco Use Status Former Tobacco user 02/18/23 11:32 Tobacco use type Cigarette 02/18/23 11:32 e-Cigarette/Vaping Use Never Used 02/18/23 11:32 Thrive Assessment: Date of Thrive Assessment Date Thrive assessed 11/13/21 02/18/23 11:32 Const General: no acute distress Orientation/consciousness: patient oriented x3 Eyes General: appearance normal, both eyes and all related structures Resp Effort & Inspection: normal respiratory effort and able to speak in complete sentences Auscultation: clear to auscultation bilaterally Neuro General: patient oriented x3 Psych Mental Status: mental status grossly normal Assessment and Plan Assessment & Plan (1) Acute pneumonia: Code(s): J18.9 - Pneumonia, unspecified organism Plan Patient came in today for paperwork She developed pneumonia and was off work from January 26 to February 02. Patient is well now and has gone back to work. Coding Level of Care Code Est Pt Level 3 (32075) Diagnoses Acute pneumonia J18.9
== END 2023-02-18 15:16 | disposition home or self-care (01) ==
PROVIDERS: PCP Internal Medicine; Visit Provider Internal Medicine
DX: J18.9 Pneumonia, unspecified organism (principal)
CPT/HCPCS: 99213

== ENCOUNTER 2023-03-03 11:57 | Outpatient (AMB) | payer OTHER, MEDICAID, SELFPAY ==
[2023-03-03 12:01] VITALS: BP 124/76; PULSE 88; O2SAT 97; BMI 35.7
--- NOTE | 2023-03-03 12:01 | MHC.PC.OV ---
Vital Signs 03/03/23 12:01 Height 5 ft 5 in Weight 214 lb 8 oz BMI 35.7 BP 124/76 Blood Pressure Location Rt brachial Position Sitting Pulse 88 Pulse Source Pulse Oximeter Pulse Oximetry (%) 97 Oxygen Delivery Method Room Air Intake Visit Reasons: Paperwork for accommodation at work Allergies niacin [Niaspan Extended-Release] Allergy (Intermediate, Verified 02/18/23 11:31) skin blisters tramadol Allergy (Intermediate, Verified 02/18/23 11:31) seizures barley [BARLEY] Allergy (Unknown, Verified 02/18/23 11:31) UNKNOWN fluticasone [Advair Diskus] Allergy (Unknown, Verified 02/18/23 11:31) Shortness of Breath ibuprofen Allergy (Unknown, Verified 02/18/23 11:31) Swelling naratriptan Allergy (Unknown, Verified 02/18/23 11:31) unknown Penicillins [PENICILLINS] Allergy (Unknown, Verified 02/18/23 11:31) Unknown sumatriptan Allergy (Unknown, Verified 02/18/23 11:31) unknown trazodone [TRAZODONE] Allergy (Unknown, Verified 02/18/23 11:31) UNKNOWN equate cough drops sugar free Allergy (Mild, Uncoded 11/30/22 21:32) Unknown Medication List - Last Reconciled 03/03/23 by Thee Tay MD bupropion HCl (Wellbutrin SR) 150 mg PO QAM famotidine 40 mg PO DAILY fluticasone propionate 50 mcg/actuation (Flonase Allergy Relief) 2 sprays intranasal BID 30 days ipratropium-albuterol 0.5 mg-3 mg(2.5 mg base)/3 mL 3 mL inhalation Q4-6H PRN 30 days levothyroxine 175 mcg PO QAM 90 days lidocaine 5% 1 patch topical DAILY 30 days loratadine 10 mg PO DAILY 30 days naproxen 500 mg PO BID PRN 30 days omalizumab (Xolair) 150 mg subcut Q4W ProAir HFA 90 mcg/actuation (albuterol sulfate) 2 puffs inhalation Q4H NS Tobacco use date assessed: 02/18/23 HPI Paperwork for accommodation at work HPI Details Patient came in today for work paperwork She continued to feel dizziness and is at risk falling when she bent over or stoop. Patient would like to have work that does not require to bend frequently She also have a chronic neck and back pain and is not able to lift more than 15 lb PFS Medical History PFO (patent foramen ovale) History of transesophageal echocardiography (LAN) Colitis Abnormal angiogram of head COVID-19 Asthma Thyroid disease GERD (gastroesophageal reflux disease) Anemia Aneurysm Surgical History History of surgery of uterus H/O endoscopy History of H/O brain surgery History of colonoscopy Family History Father Diabetes Arthritis Diverticulitis Leukemia Mental health disorder Lung cancer Mother Anemia Arthritis Colon polyps Myocardial infarction Brother Crohn's disease Testicular cancer Brother Cancer Paternal Grandfather Leukemia Other Substance use disorder Social History Household Members: Significant Other Housing: House Are you a primary director career to a significant other at home: No Do you presently have visiting nurse or other home services: No Alcohol intake: never Patient Tobacco Use Status: Former Tobacco user Tobacco use type: Cigarette e-Cigarette/Vaping Use: Never Used Advance Directives Date on File: 04/09/21 service: No 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al status: employed Cognitive needs: No Hearing needs: No Vision needs: Yes Questionnaire Thrive Questionnaire Date Thrive assessed: 11/13/21 MARKO-7 AMB Questionnaire MARKO-7 Date MARKO - 7 assessed: 11/13/21 Source: Developed by Drs. Masood Arredondo, Lesly Pruitt, Thor Del Cid and colleagues, with an educational phil from [employer]. Review of Systems Const Denies chills and Denies fever(s) ENT Denies epistaxis and Denies nasal discharge Card Denies chest pain Resp Denies chest congestion, Denies cough and Denies hemoptysis GI Denies diarrhea and Denies nausea Skin/Breast Denies rash Neuro Reports no additional complaints Psych Reports no additional complaints Endo Reports no additional complaints Physical exam (Primary Care) Vital Signs: Last Vital Signs Pulse 88 03/03/23 12:01 BP 124/76 03/03/23 12:01 Pulse Ox 97 03/03/23 12:01 Oxygen Delivery Method Room Air 03/03/23 12:01 BMI result Body Mass Index 35.7 Tobacco/Smoking Status: Tobacco use Status Tobacco use date assessed 02/18/23 03/03/23 12:04 Patient Tobacco Use Status Former Tobacco user 03/03/23 12:04 Tobacco use type Cigarette 03/03/23 12:04 e-Cigarette/Vaping Use Never Used 03/03/23 12:04 Thrive Assessment: Date of Thrive Assessment Date Thrive assessed 11/13/21 03/03/23 12:04 Const General: cooperative, comfortable and no acute distress Orientation/consciousness: patient oriented x3 HENMT Head: Yes normocephalic Eyes General: appearance normal, both eyes and all related structures Neck Neck: Yes supple Resp Effort & Inspection: normal respiratory effort, no cough and no stridor Cardio Rhythm: regular rhythm Heart sounds: S1 normal heart sound present and S2 normal heart sound present Skin General skin exam: turgor normal Neuro General: patient oriented x3, tone normal and moves all extremities Extrem Right lower extremity: no edema Left lower extremity: no edema Assessment and Plan Assessment & Plan (1) Chronic vertigo: Code(s): R42 - Dizziness and giddiness (2) Radiculitis of left cervical region: Code(s): M54.12 - Radiculopathy, cervical region Plan work restriction paper work filled no bending or stooping no lifting more than 15 lbs Medications: New montelukast 10 mg PO DAILY 90 tabs 0RF Coding Level of Care Code Est Pt Level 3 (25915) Diagnoses Chronic vertigo R42 Radiculitis of left cervical region M54.12
== END 2023-03-03 12:37 | disposition home or self-care (01) ==
PROVIDERS: PCP Internal Medicine; Visit Provider Internal Medicine
DX: R42 Dizziness and giddiness (principal); M54.12 Radiculopathy, cervical region
CPT/HCPCS: 99213

== ENCOUNTER 2023-03-08 11:21 | Emergency (ER) | payer OTHER, MEDICAID, SELFPAY ==
--- NOTE | ~2023-03-08 | XR_ITS ---
EXAMINATION: XR CHEST CLINICAL INFORMATION: Chest pain. COMPARISON: 01/26/2023. TECHNIQUE: 2 views of the chest were obtained. FINDINGS: No significant abnormality is noted involving the heart, lungs, mediastinum, bony thorax or soft tissues. XR/XR chest 2V IMPRESSION: Unremarkable examination.
--- NOTE | 2023-03-08 11:23 | ECG_ITS ---
Test Reason : CHEST PAIN Blood Pressure : / mmHG Vent. Rate : 076 BPM Atrial Rate : 076 BPM P-R Int : 158 ms QRS Dur : 086 ms QT Int : 384 ms P-R-T Axes : 031 -08 012 degrees QTc Int : 432 ms Normal sinus rhythm Normal ECG When compared with ECG of 26-JAN-2023 11:22, No significant change was found Referred By: Generic ED Physician Electronically Signed By:JOANN BOWER MD
[2023-03-08 11:32] VITALS: BP 136/83; PULSE 83; RESP 18; TEMP 36.6; O2SAT 97; BMI 35.7
--- NOTE | 2023-03-08 11:42 | ED_ITS ---
HPI - Chest Pain General Chief Complaint: Chest Pain Stated Complaint: Chest pain, difficulty breathing Time Seen by Provider: 03/08/23 12:06 Source: patient Mode of arrival: ambulatory Limitations: no limitations History of Present Illness HPI narrative: 53-year-old female who presents emergency department for evaluation of chest pain, shortness of breath, dyspnea exertion and cough. Patient states she has been sick since 01/26/2023 when she was diagnosed with pneumonia versus bronchitis. She states she completed a course of prednisone and a Z-Rodrigo with no improvement her symptoms. She states that she continues to have a cough which is violent, persist and nonproductive. She states that she has a constant, heaviness in her anterior chest right greater than left which is worse with breathing worse with coughing. She states she has been using her inhaler with only minimal improvement of her shortness of breath. She has had rhinorrhea, sore throat and nausea. She denied vomiting or diarrhea. She denied myalgias arthralgias. Related Data Home Medications Medication Instructions Recorded Confirmed famotidine 20 mg tablet 40 mg PO DAILY 10/16/22 03/03/23 omalizumab 150 mg subcutaneous 150 mg subcut Q4W 10/29/22 03/03/23 solution (Xolair) Previous Rx's Medication Instructions Recorded ProAir HFA 90 mcg/actuation 2 puff inhalation Q4H #8.5 grams 02/19/22 aerosol inhaler (albuterol sulfate) ipratropium 0.5 mg-albuterol 3 mg 3 ml inhalation Q4-6H PRN wheezing 10/14/22 (2.5 mg base)/3 mL nebulization 30 days #270 mL soln loratadine 10 mg tablet 10 mg PO DAILY 30 days #30 tabs 11/10/22 lidocaine 5 % topical patch 1 patch topical DAILY 30 days #30 12/03/22 ea naproxen 500 mg tablet 500 mg PO BID PRN pain 30 days #60 12/03/22 tabs bupropion HCl 150 mg tablet,12 hr 150 mg PO QAM #90 tabs 01/18/23 sustained-release (Wellbutrin SR) montelukast 10 mg tablet 10 mg PO DAILY #90 tabs 03/03/23 fluticasone propionate 50 2 spray intranasal BID 30 days #16 03/04/23 mcg/actuation nasal grams spray,suspension (Flonase Allergy Relief) levothyroxine 175 mcg tablet 175 mcg PO QAM 90 days #90 tabs 03/04/23 doxycycline hyclate 100 mg tablet 100 mg PO Q12H 10 days #20 tabs 03/08/23 prednisone 20 mg tablet 60 mg (3 x 20 mg) PO DAILY 5 days 03/08/23 #15 tabs Allergies Allergy/AdvReac Type Severity Reaction Status Date / Time niacin Allergy Intermediate skin Verified 02/18/23 11:31 [Niaspan Extended-Release] blisters tramadol Allergy Intermediate seizures Verified 02/18/23 11:31 barley [BARLEY] Allergy Unknown UNKNOWN Verified 02/18/23 11:31 fluticasone [Advair Diskus] Allergy Unknown Shortness Verified 02/18/23 11:31 of Breath ibuprofen Allergy Unknown Swelling Verified 02/18/23 11:31 naratriptan Allergy Unknown unknown Verified 02/18/23 11:31 Penicillins [PENICILLINS] Allergy Unknown Unknown Verified 02/18/23 11:31 sumatriptan Allergy Unknown unknown Verified 02/18/23 11:31 trazodone [TRAZODONE] Allergy Unknown UNKNOWN Verified 02/18/23 11:31 equate cough drops sugar free Allergy Mild Unknown Uncoded 11/30/22 21:32 Review of Systems 2 Review of Systems: Yes all other systems are reviewed and are negative [facility] Past Medical History [facility] Narrative: Social history: She denies tobacco, alcohol and drug use. Medical History PFO (patent foramen ovale) History of transesophageal echocardiography (LAN) Colitis Abnormal angiogram of head COVID-19 Asthma Thyroid disease GERD (gastroesophageal reflux disease) Anemia Aneurysm Surgical History History of surgery of uterus H/O endoscopy History of H/O brain surgery History of colonoscopy Family History Family History Father Diabetes Arthritis Diverticulitis Leukemia Mental health disorder Lung cancer Mother Anemia Arthritis Colon polyps Myocardial infarction Brother Crohn's disease Testicular cancer Brother Cancer Paternal Grandfather Leukemia Other Substance use disorder Social History Social History Household Members: Significant Other Housing: House Are you a primary progressive care manager to a significant other at home: No Do you presently have visiting nurse or other home services: No Alcohol intake: never Patient Tobacco Use Status: Former Tobacco user Tobacco use type: Cigarette Smoked in Last 30 Days: No e-Cigarette/Vaping Use: Never Used Use of substances other than those prescribed or required for medical reasons: No Advance Directives: Yes Advance Directives on File: Yes Advance Directives Date on File: 04/09/21 Patient : No service: No 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al status: employed Cognitive needs: No Hearing needs: No Vision needs: Yes Physical Exam 2 Vital Signs: Vital Signs: Last Vital Signs Temp 98.1 F 03/08/23 12:02 Pulse 65 03/08/23 13:09 Resp 18 03/08/23 13:09 BP 126/80 03/08/23 13:09 Pulse Ox 100 03/08/23 13:09 O2 Del Method Room Air 03/08/23 13:09 BMI result Body Mass Index 35.7 Vital signs were normal Exam: General: Awake, alert in no distress Head: Normocephalic, atraumatic EENT: PERRL, Lids normal, sclera normal, conjunctiva normal, nose normal , ears normal, throat without erythema or exudates Neck: Supple, no adenopathy, no trachea midline or C-spine tenderness Lung: breath sounds symmetric, diffuse wheezing, diffuse rhonchi, no rales Chest: symmetric movement, tenderness with palpation of both the left and right anterior chest along the costochondral joints Heart: regular rate and rhythm, normal S1, S2 no murmurs or rubs Abdomen: soft, non-tender, nondistended, normal bowel sounds Back: no vertebral tenderness, no CVAT Extremities: no deformities, moves all extremities symmetrically Neuro: Awake, alert, oriented, normal speech,moves all extremities symmetrically Psych: Pleasant, cooperative Course Course Course Narrative: RME performed by Eloisa Hogan PA-C. Patient is a 53 year old assigned female at presenting to the emergency department with chest pain. Labs, imaging, swabs ordered. Patient placed back in the waiting room pending room availability and results. Medical Decision Making Medical Decision Making MDM Narrative: 53-year-old female who presents emergency department for evaluation of chest pain, shortness of breath, dyspnea exertion and cough. Patient states she has been sick since 01/26/2023 when she was diagnosed with pneumonia versus bronchitis that she was treated with prednisone and a Z-Rodrigo with no improvement her symptoms. Patient's vital signs were normal. Physical examination did reveal diffuse rhonchi and wheezing. Following evaluation was ordered: CBC, CMP, troponin, flu, RSV, COVID, chest x- ray two view, 12 EKG 14:35 Patient's laboratory evaluation was unremarkable, EKG and chest x-ray were normal. RSV, COVID-19 influenza were negative Patient most likely has acute bronchitis which is exacerbating her asthma. Patient will be treated with doxycycline 100 mg q.12 hours times 10 days and prednisone 60 mg x5 days. She was advised to take Tylenol for pain and for pain not relieved by Tylenol she was prescribed morphine 15 mg every 4-6 hours as needed. She was given printed and verbal instructions discharged home. Differential Diagnosis Differential Diagnoses: The differential diagnosis associated with the presentation includes Differential diagnosis includes was not limited to pneumonia, bronchitis, viral syndrome, COVID-19, influenza, RSV, asthma exacerbation Admission/Observation Consideration of admission/observation: Escalation of care including admission/observation considered Lab Data MDM Lab Attestation statement: I reviewed the patient's lab results. My interpretation patient's laboratory evaluation is as follows: CBC was normal. CMP was normal. Troponin was below detectable limits. COVID-19, influenza and RSV were negative. 03/08/23 11:44 03/08/23 11:44 Labs: Lab Results 03/08/23 03/08/23 Range/Units 11:44 12:17 WBC 7.4 (4.8-10.8) X10*3/uL RBC 4.85 (4.20-5.50) X10*6/uL Hgb 13.1 (12.0-16.0) g/dl Hct 39.7 (37.0-47.0) % MCV 81.9 (80.0-98.0) fL MCH 27.0 (27.0-33.0) pg MCHC 33.0 (31.0-35.0) g/dl RDW 13.4 (11.0-16.0) % Plt Count 257 (160-400) X10*3/uL MPV 10.1 (9.4-12.3) fL Immature Gran % (Auto) 0.3 (0.0-0.4) % Neut % (Auto) 64.8 (45-73) % Lymph % (Auto) 22.5 (20-40) % [place] % (Auto) 7.0 (2-11) % Eos % (Auto) 4.6 H (0-4) % Baso % (Auto) 0.8 (0-2) % Lymph # (Auto) 1.7 (1.2-4.9) X10*3/uL [place] # (Auto) 0.5 (0.1-1.2) X10*3/uL Eos # (Auto) 0.3 (0.0-0.4) X10*3/uL Baso # (Auto) 0.1 (0.0-0.2) X10*3/uL Abs Immat Gran (auto) 0.02 (0.00-0.03) X10*3/uL Absolute Neuts (auto) 4.8 (2.0-8.3) x10*3/uL Absolute Nucleated RBC 0.000 (0.0-0.012) X10*3/uL Nucleated RBC % (auto) 0.0 (0.0-0.2) /100WBC Sodium 139 (135-145) mmol/L Potassium 4.0 (3.3-5.1) mmol/L Chloride 109 H (96-108) mmol/L Carbon Dioxide 23 (22-29) mmol/L Anion Gap 11 L (12-20) BUN 8 L (9-16) mg/dL Creatinine 0.62 (0.5-1.4) mg/dL Estim Creat Clear Calc 122.5 Estimated GFR > 60 Random Glucose 82 (60-115) mg/dL Calcium 9.2 (8.4-10.2) mg/dL Total Bilirubin 0.3 (0.0-1.0) mg/dL AST 13 (5-31) U/L ALT 15 (0-31) U/L Alkaline Phosphatase 135 H (39-117) U/L Troponin I High Sens < 2.7 (<3.5-17.0) ng/L Total Protein 6.5 (6.5-8.0) g/dL Albumin 4.0 (3.5-5.0) g/dL Influenza Type A (PCR) NEGATIVE (Negative) Influenza Type B (PCR) NEGATIVE (Negative) RSV RNA Qual (PCR) NEGATIVE (Negative) SARS-CoV-2 RNA (RT-PCR) NEGATIVE (Negative) Independent Interpretation I performed an independent interpretation of an: EKG and Plain X-Ray Interpretation: My interpretation patient's 12 EKG done at 11:26 hours is as follows: Normal sinus rhythm rate of 76, normal NE interval, QRS duration QTC interval, no ST segment elevation, no ST segment depression, inverted T-wave in lead 3 and V1, no PACs, no PVCs compared to EKG dated 01/26/2023 there is no significant change. My interpretation of the patient's two view chest x-ray is as follows: No acute disease Radiology Impression Discussion of test interpretation with radiology: I have reviewed the radiologist's reading. Radiologist Impression: XR chest 2V IMPRESSION: Unremarkable examination. Dictated By: Melvin Stuart Prescription Management I considered prescription management with: Antibiotic and Other (Pain medication) Chronic Conditions Patient?s care impacted by: Other (Asthma) Discharge Plan Discharge Clinical Impression: Acute bronchitis Qualifiers: Bronchitis organism: other organism Qualified Code(s): J20.8 - Acute bronchitis due to other specified organisms Asthma exacerbation Qualifiers: Asthma severity: moderate Asthma persistence: persistent Qualified Code(s): J 45.41 - Moderate persistent asthma with (acute) exacerbation Patient Disposition: Home, Self-Care Instructions: Acute Bronchitis (ED) Additional Instructions: Your blood work was unremarkable. Your chest x-ray was normal. Your symptoms are consistent with bronchitis which is causing flare-up of your asthma. Take prednisone 20 mg pills, 3 pills once a day for 5 days. While you are taking prednisone, do not take any NSAIDs (Motrin, Advil, ibuprofen, Aleve, naproxen). Take Tylenol (acetaminophen) 2 pills every 6 hours as needed for pain. For pain not relieved by prednisone or Tylenol take morphine 15 mg pills, 1 pill every 4 hours as needed for pain. This medication will make you sleepy, do not drive or work while taking this medication. Morphine is a narcotic medication and can be addicting. If you are concerned about addiction you can ask the pharmacist for less pills or do not get this prescription filled. Take doxycycline 100 mg, 1 pill every 12 hours for 10 days Follow-up with your doctor in 2 days. Please return to the emergency department if your symptoms get worse or if you develop any symptoms that are concerning to you. Please see work Prescriptions: New prednisone 20 mg tablet 60 mg PO DAILY 5 Days Qty: 15 0RF doxycycline hyclate 100 mg tablet 100 mg PO Q12H 10 Days Qty: 20 0RF No Action albuterol sulfate [ProAir HFA] 90 mcg/actuation HFA aerosol inhaler 2 puff inhalation Q4H Qty: 8.5 0RF loratadine 10 mg tablet 10 mg PO DAILY 30 Days Qty: 30 6RF bupropion HCl [Wellbutrin SR] 150 mg tablet sustained-release 12 hr 150 mg PO QAM Qty: 90 0RF fluticasone propionate [Flonase Allergy Relief] 50 mcg/actuation spray,suspension 2 spray intranasal BID 30 Days Qty: 16 3RF Rx Instructions: administer into each nostril levothyroxine 175 mcg tablet 175 mcg PO QAM 90 Days Qty: 90 0RF Xolair 150 mg recon soln 150 mg subcut Q4W naproxen 500 mg tablet 500 mg PO BID PRN (Reason: pain) 30 Days Qty: 60 0RF lidocaine 5 % adhesive patch,medicated 1 patch topical DAILY 30 Days Qty: 30 0RF Rx Instructions: leave on most painful area for up to 12 hrs montelukast 10 mg tablet 10 mg PO DAILY Qty: 90 0RF ipratropium-albuterol 0.5 mg-3 mg(2.5 mg base)/3 mL solution for nebulization 3 ml inhalation Q4-6H PRN (Reason: wheezing) 30 Days Qty: 270 6RF famotidine 20 mg tablet 40 mg PO DAILY
[2023-03-08 11:49] LABS: MANUAL DIFF FLAG NO
[2023-03-08 11:51] LABS: Basophils Absolute Auto 0.1 X10*3/uL (0.0-0.2); Basophils Percent Auto 0.8 % (0-2); Eosinophils Absolute Auto 0.3 X10*3/uL (0.0-0.4); Eosinophils Percent Auto 4.6 % (0-4); Hematocrit 39.7 % (37.0-47.0); Hemoglobin 13.1 g/dl (12.0-16.0); Imm Gran Abs Auto 0.02 X10*3/uL (0.00-0.03); Imm Gran Pct Auto 0.3 % (0.0-0.4); Lymphocytes Absolute Auto 1.7 X10*3/uL (1.2-4.9); Lymphocytes Percent Auto 22.5 % (20-40); Mean Corpuscular Volume 81.9 fL (80.0-98.0); Mean Platelet Volume 10.1 fL (9.4-12.3); Monocytes Absolute Auto 0.5 X10*3/uL (0.1-1.2); Neutrophils Absolute Auto 4.8 x10*3/uL (2.0-8.3); Neutrophils Percent Auto 64.8 % (45-73); Platelet Count 257 X10*3/uL (160-400); Red Blood Count 4.85 X10*6/uL (4.20-5.50); Red Cell Distribution Width 13.4 % (11.0-16.0); White Blood Count 7.4 X10*3/uL (4.8-10.8)
--- NOTE | 2023-03-08 11:58 | PC.NURSE ---
Pt states she was dx with pneumonia and bronchitis on JAN 26. Pt states she was dc'd on prednisone and zpack; pt completed curse of these meds and initially felt better upon completion. On Jan 30, pt states she began to feel chest pain and sob. These sx have been ongoing into today's visit. Pt states Pain is worth with deep breathing and coughing; pt states chest pain radiates to bilat shoulders and diffuse back. Pt is experiencing intermittent coughing and is concerned for whooping cough . Pt also states associated sx of lightheadedness/dizziness/insomnia.
[2023-03-08 12:02] VITALS: BP 114/85; PULSE 72; PULSE 73; RESP 16; TEMP 36.7; O2SAT 97
[2023-03-08 12:10] LABS: Alanine Aminotransferase 15 U/L (0-31); Alkaline Phosphatase 135 U/L (39-117); Anion Gap 11 (12-20); Aspartate Amino Transferase 13 U/L (5-31); Bilirubin Total 0.3 mg/dL (0.0-1.0); Blood Urea Nitrogen 8 mg/dL (9-16); Calcium 9.2 mg/dL (8.4-10.2); Carbon Dioxide 23 mmol/L (22-29); Chloride 109 mmol/L (96-108); Creatinine Clr Calc Pharmacy 122.5; Estimated Glomerular Filt Rate > 60; Glucose Random 82 mg/dL (60-115); Sodium 139 mmol/L (135-145); Total Protein 6.5 g/dL (6.5-8.0)
[2023-03-08 12:32] LABS: Troponin-I High Sensitivity < 2.7 ng/L (<3.5-17.0)
[2023-03-08 13:09] VITALS: BP 126/80; PULSE 65; RESP 18; O2SAT 100
[2023-03-08 13:19] LABS: Influenza A PCR NEGATIVE (Negative); Influenza B PCR NEGATIVE (Negative); Resp Syncy Virus RNA Qual PCR NEGATIVE (Negative); SARS COV2 PCR INHOUSE NEGATIVE (Negative)
--- NOTE | 2023-03-08 13:34 | PC.NURSE ---
transported to xray
== END 2023-03-08 15:08 | disposition home or self-care (01) ==
PROVIDERS: Physician Assistant Medical; Emergency Provider Emergency Medicine Emergency Medical Services; PCP Internal Medicine
DX: J20.9 Acute bronchitis, unspecified (principal); J45.41 Moderate persistent asthma with (acute) exacerbation; R07.89 Other chest pain; R06.02 Shortness of breath; R05.9 Cough, unspecified; Z20.822 Contact with and (suspected) exposure to COVID-19; Z20.828 Contact with and (suspected) exposure to other viral communicable diseases; Z79.899 Other long term (current) drug therapy
CPT/HCPCS: 0241U; 36415; 71046; 80053; 84484; 85025; 93005; 96360; 99283; 99284; 99285

== ENCOUNTER 2023-03-13 13:17 | Outpatient (AMB) | payer OTHER, MEDICAID, SELFPAY ==
--- NOTE | 2023-03-13 13:19 | MHC.PC.OV ---
Vital Signs 03/13/23 13:25 Height 5 ft 5 in Weight 213 lb 8 oz BMI 35.5 BP 138/76 Blood Pressure Location Rt brachial Position Sitting Pulse 127 H Pulse Source Pulse Oximeter Pulse Oximetry (%) 97 Oxygen Delivery Method Room Air Intake Visit Reasons: FMLA Forms~ Allergies niacin [Niaspan Extended-Release] Allergy (Intermediate, Verified 03/13/23 13:19) skin blisters tramadol Allergy (Intermediate, Verified 03/13/23 13:19) seizures barley [BARLEY] Allergy (Unknown, Verified 03/13/23 13:19) UNKNOWN fluticasone [Advair Diskus] Allergy (Unknown, Verified 03/13/23 13:19) Shortness of Breath ibuprofen Allergy (Unknown, Verified 03/13/23 13:19) Swelling naratriptan Allergy (Unknown, Verified 03/13/23 13:19) unknown Penicillins [PENICILLINS] Allergy (Unknown, Verified 03/13/23 13:19) Unknown sumatriptan Allergy (Unknown, Verified 03/13/23 13:19) unknown trazodone [TRAZODONE] Allergy (Unknown, Verified 03/13/23 13:19) UNKNOWN equate cough drops sugar free Allergy (Mild, Uncoded 11/30/22 21:32) Unknown Medication List - Last Reconciled 03/13/23 by Thee Tay MD bupropion HCl (Wellbutrin SR) 150 mg PO QAM doxycycline hyclate 100 mg PO Q12H 10 days famotidine 40 mg PO DAILY fluticasone propionate 50 mcg/actuation (Flonase Allergy Relief) 2 sprays intranasal BID 30 days ipratropium-albuterol 0.5 mg-3 mg(2.5 mg base)/3 mL 3 mL inhalation Q4-6H PRN 30 days levothyroxine 175 mcg PO QAM 90 days lidocaine 5% 1 patch topical DAILY 30 days loratadine 10 mg PO DAILY 30 days montelukast 10 mg PO DAILY morphine 15 mg PO TID PRN naproxen 500 mg PO BID PRN 30 days omalizumab (Xolair) 150 mg subcut Q4W prednisone 60 mg (3 x 20 mg) PO DAILY 5 days ProAir HFA 90 mcg/actuation (albuterol sulfate) 2 puffs inhalation Q4H NS Tobacco use date assessed: 03/13/23 Dental Screening Dental Screen Date: 03/13/23 Did you have a dental visit in the last 12 months?: Yes Did you have a dental problem in the last 6 months where you did not have access to dental care?: No Was dental information given to patient?: Patient has dentist HPI FMLA Forms~ HPI Details Patient is here for evaluation for Bronchitis , she was in ER 03/08/23 patient was treated with Z pack prior to that along with Prednison but she didnt get better started feeling more SOB, so ended up in ER Patient's laboratory evaluation was unremarkable, EKG and chest x-ray were normal. RSV, COVID-19 influenza were negative She was diagnosed with acute bronchitis which is exacerbating her asthma. Patient was given doxycycline 100 mg q.12 hours times 10 days and prednisone 60 mg x5 days. She has started to feel better initially she had N and V with doxy, but then started tolerating it when she took it with food she want paper work filled for this illness starting 03/08/2023 till 03/15/23 she will go back to work on Thursday03/16/23 she also want more paper work filled for Pneumoia she had 01/26/23 Forms filled to be off from 01/26/2023 till 03/15/2023 PFSH Medical History PFO (patent foramen ovale) History of transesophageal echocardiography (LAN) Colitis Abnormal angiogram of head COVID-19 Asthma Thyroid disease GERD (gastroesophageal reflux disease) Anemia Aneurysm Surgical History History of surgery of uterus H/O endoscopy History of H/O brain surgery History of colonoscopy Family History Father Diabetes Arthritis Diverticulitis Leukemia Mental health disorder Lung cancer Mother Anemia Arthritis Colon polyps Myocardial infarction Brother Crohn's disease Testicular cancer Brother Cancer Paternal Grandfather Leukemia Other Substance use disorder Social History Household Members: Significant Other Housing: House Are you a primary anesthesiologist and critical care to a significant other at home: No Do you presently have visiting nurse or other home services: No Alcohol intake: never Patient Tobacco Use Status: Former Tobacco user Tobacco use type: Cigarette e-Cigarette/Vaping Use: Never Used Advance Directives Date on File: 04/09/21 service: No 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al status: employed Cognitive needs: No Hearing needs: No Vision needs: Yes Questionnaire Thrive Questionnaire Date Thrive assessed: 11/13/21 AUDIT C Alcohol Use Questionnaire (AUDIT-C) 1. How often do you have a drink containing alcohol?: Never 3. How often do you have six or more drinks on one occasion?: Never Total Score: 0 Score Reviewed/Action Taken: Yes MARKO-7 AMB Questionnaire MARKO-7 Date MARKO - 7 assessed: 11/13/21 Source: Developed by Drs. Masood Arredondo, Lesly Pruitt, Thor Del Cid and colleagues, with an educational phil from [employer]. Review of Systems Const Denies chills and Denies fever(s) ENT Denies epistaxis and Denies nasal discharge Card Denies chest pain Resp Denies hemoptysis GI Denies diarrhea and Denies nausea Skin/Breast Denies rash Neuro Reports no additional complaints Psych Reports no additional complaints Endo Reports no additional complaints Physical exam (Primary Care) Vital Signs: Last Vital Signs Pulse 127 H 03/13/23 13:25 BP 138/76 03/13/23 13:25 Pulse Ox 97 03/13/23 13:25 Oxygen Delivery Method Room Air 03/13/23 13:25 BMI result Body Mass Index 35.5 Tobacco/Smoking Status: Tobacco use Status Tobacco use date assessed 03/13/23 03/13/23 13:20 Patient Tobacco Use Status Former Tobacco user 03/13/23 13:20 Tobacco use type Cigarette 03/13/23 13:20 e-Cigarette/Vaping Use Never Used 03/13/23 13:20 Thrive Assessment: Date of Thrive Assessment Date Thrive assessed 11/13/21 03/13/23 13:20 Const General: cooperative, comfortable and no acute distress Orientation/consciousness: patient oriented x3 HENMT Head: Yes normocephalic Eyes General: appearance normal, both eyes and all related structures Neck Neck: Yes supple Resp Other: Mild basal wheezing bilateral Effort & Inspection: normal respiratory effort and no stridor Cardio Rhythm: regular rhythm Heart sounds: S1 normal heart sound present and S2 normal heart sound present Skin General skin exam: turgor normal Neuro General: patient oriented x3, tone normal and moves all extremities Extrem Right lower extremity: no edema Left lower extremity: no edema Assessment and Plan Assessment & Plan (1) Acute bronchitis: Code(s): J20.9 - Acute bronchitis, unspecified Qualifiers: Bronchitis organism: other organism Qualified Code(s): J20.8 - Acute bronchitis due to other specified organisms (2) Asthma exacerbation: Code(s): J45.901 - Unspecified asthma with (acute) exacerbation Qualifiers: Asthma persistence: persistent Asthma severity: moderate Qualified Code(s): J45.41 - Moderate persistent asthma with (acute) exacerbation Plan Patient is here for evaluation for Bronchitis , she was in ER 03/08/23 patient was treated with Z pack prior to that along with Prednison but she didnt get better started feeling more SOB, so ended up in ER Patient's laboratory evaluation was unremarkable, EKG and chest x-ray were normal. RSV, COVID-19 influenza were negative She was diagnosed with acute bronchitis which is exacerbating her asthma. Patient was given doxycycline 100 mg q.12 hours times 10 days and prednisone 60 mg x5 days. She has started to feel better initially she had N and V with doxy, but then started tolerating it when she took it with food she want paper work filled for this illness starting 03/08/2023 till 03/15/23 she will go back to work on Thursday03/16/23 she also want more paper work filled for Pneumoia she had 01/26/23 Forms filled to be off from 01/26/2023 till 03/15/2023 Coding Level of Care Code Est Pt Level 4 (97728) Diagnoses Acute bronchitis J20.8 Bronchitis organism: other organism Asthma exacerbation J45.41 Asthma persistence: persistent Asthma severity: moderate
[2023-03-13 13:25] VITALS: BP 138/76; PULSE 127; O2SAT 97; BMI 35.5
== END 2023-03-13 13:58 | disposition home or self-care (01) ==
PROVIDERS: PCP Internal Medicine; Visit Provider Internal Medicine
DX: J20.8 Acute bronchitis due to other specified organisms (principal); J45.41 Moderate persistent asthma with (acute) exacerbation
CPT/HCPCS: 99214

== ENCOUNTER 2023-03-14 16:13 | Emergency (ER) | payer OTHER, MEDICAID, SELFPAY ==
[2023-03-14 16:23] VITALS: BP 132/78; BP 133/73; PULSE 68; PULSE 73; RESP 18; TEMP 36.4; O2SAT 95; BMI 36.4
--- NOTE | 2023-03-14 16:28 | PC.NURSE ---
Patient reports around 2:30pm after lunch had heartburn and went to take what she thought was famotidine but took 30mg of morphine. Ptient reports feels loopy and was nauseous. Had morphine prescribed for a fx rib from coughing. Patient brought morphine to ED and requesting for it to be destroyed. vss.
--- NOTE | 2023-03-14 17:14 | PC.NURSE ---
Morphine returned to patient, patient to dispose of with PCP
--- NOTE | 2023-03-14 19:05 | PC.NURSE ---
Patient reports feeling better, ate well for dinner, rr 20.
--- NOTE | 2023-03-14 19:45 | ED.GENADULT ---
HPI - General Adult General Chief complaint: General Medical Stated complaint: accidentally took 2 15mg morphine pills Time Seen by Provider: 03/14/23 16:39 Source: patient Mode of arrival: EMS History of Present Illness HPI narrative: 53-year-old female who is brought in by EMS after she states she accidentally took a total of 30 mg of morphine at 15:00 this afternoon instead of her famotidine. Patient states that she felt a little bit dizzy in slightly nauseous. Otherwise she denies any shortness of breath/chest pain/GI or symptoms. Related Data Home Medications Medication Instructions Recorded Confirmed famotidine 20 mg tablet 40 mg PO DAILY 10/16/22 03/13/23 omalizumab 150 mg subcutaneous 150 mg subcut Q4W 10/29/22 03/13/23 solution (Xolair) Previous Rx's Medication Instructions Recorded ProAir HFA 90 mcg/actuation 2 puff inhalation Q4H #8.5 grams 02/19/22 aerosol inhaler (albuterol sulfate) ipratropium 0.5 mg-albuterol 3 mg 3 ml inhalation Q4-6H PRN wheezing 10/14/22 (2.5 mg base)/3 mL nebulization 30 days #270 mL soln loratadine 10 mg tablet 10 mg PO DAILY 30 days #30 tabs 11/10/22 lidocaine 5 % topical patch 1 patch topical DAILY 30 days #30 12/03/22 ea naproxen 500 mg tablet 500 mg PO BID PRN pain 30 days #60 12/03/22 tabs bupropion HCl 150 mg tablet,12 hr 150 mg PO QAM #90 tabs 01/18/23 sustained-release (Wellbutrin SR) montelukast 10 mg tablet 10 mg PO DAILY #90 tabs 03/03/23 fluticasone propionate 50 2 spray intranasal BID 30 days #16 03/04/23 mcg/actuation nasal grams spray,suspension (Flonase Allergy Relief) levothyroxine 175 mcg tablet 175 mcg PO QAM 90 days #90 tabs 03/04/23 doxycycline hyclate 100 mg tablet 100 mg PO Q12H 10 days #20 tabs 03/08/23 morphine 15 mg immediate release 15 mg PO TID PRN pain #10 tabs 03/08/23 tablet prednisone 20 mg tablet 60 mg (3 x 20 mg) PO DAILY 5 days 03/08/23 #15 tabs Symbicort 160 mcg-4.5 2 puff inhalation BID #10.2 grams 03/13/23 mcg/actuation HFA aerosol inhaler (budesonide-formoterol) Allergies Allergy/AdvReac Type Severity Reaction Status Date / Time niacin Allergy Intermediate skin Verified 03/13/23 13:19 [Niaspan Extended-Release] blisters tramadol Allergy Intermediate seizures Verified 03/13/23 13:19 barley [BARLEY] Allergy Unknown UNKNOWN Verified 03/13/23 13:19 fluticasone [Advair Diskus] Allergy Unknown Shortness Verified 03/13/23 13:19 of Breath ibuprofen Allergy Unknown Swelling Verified 03/13/23 13:19 naratriptan Allergy Unknown unknown Verified 03/13/23 13:19 Penicillins [PENICILLINS] Allergy Unknown Unknown Verified 03/13/23 13:19 sumatriptan Allergy Unknown unknown Verified 03/13/23 13:19 trazodone [TRAZODONE] Allergy Unknown UNKNOWN Verified 03/13/23 13:19 equate cough drops sugar free Allergy Mild Unknown Uncoded 11/30/22 21:32 Review of Systems Review of Systems: Pertinent positives and negatives as stated in HPI [facility] Past Medical History Source: nursing notes reviewed Medical History PFO (patent foramen ovale) History of transesophageal echocardiography (LAN) Colitis Abnormal angiogram of head COVID-19 Asthma Thyroid disease GERD (gastroesophageal reflux disease) Anemia Aneurysm Surgical History History of surgery of uterus H/O endoscopy History of H/O brain surgery History of colonoscopy Family History Family History Father Diabetes Arthritis Diverticulitis Leukemia Mental health disorder Lung cancer Mother Anemia Arthritis Colon polyps Myocardial infarction Brother Crohn's disease Testicular cancer Brother Cancer Paternal Grandfather Leukemia Other Substance use disorder Social History Social History Household Members: Significant Other Housing: House Are you a primary adult day care worker to a significant other at home: No Do you presently have visiting nurse or other home services: No Alcohol intake: former Patient Tobacco Use Status: Former Tobacco user Tobacco use type: Cigarette Smoked in Last 30 Days: No e-Cigarette/Vaping Use: Never Used Use of substances other than those prescribed or required for medical reasons: No Advance Directives: Yes Advance Directives on File: Yes Advance Directives Date on File: 04/09/21 service: No 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al status: employed Cognitive needs: No Hearing needs: No Vision needs: Yes Physical Exam ED Vital Signs: Vital Signs - 24 hr 03/14/23 16:23 03/14/23 19:55 Temperature 97.6 F Pulse Rate 73 74 Respiratory Rate 18 Blood Pressure 133/73 121/72 Pulse Oximetry 95 Oxygen Delivery Method Room Air BMI result Body Mass Index 36.4 VITAL SIGNS: Reviewed. GENERAL: Well developed, well nourished, in no acute distress. HEAD: Normocephalic/atraumatic EYES: PERRLA, EOMI EARS: Ext canals without abnormality NOSE: Nares patent bilateral OROPHARYNX: no oral lesions noted, posterior pharynx clear NECK: Supple, no adenopathy LUNGS: Normal breath sounds. No adventitious sounds or accessory muscle use. SpO2<95> CARDIOVASCULAR: Regular rate and rhythm without noted murmurs ABDOMEN: Soft, non-tender, non-distended with bowel sounds. MUSCULOSKELETAL: No tenderness, deformities, or effusions noted on gross inspection. EXTREMITIES: No cyanosis, clubbing or edema. SKIN: Inspection of the skin reveals no rashes NEUROLOGIC: Alert and oriented x 4. Strength and sensation to light touch were grossly intact x 4. Medical Decision Making Medical Decision Making MDM Narrative: 53-year-old female who comes in with accidental ingestion of 30 mg of morphine, I decided that it was not necessary to contact poison Control given the amount and that observation would be sufficient, patient is oxygenating well on room air, she is not nauseous or vomiting and denies any SI/HI. On re-evaluation she is noted to be tolerating oral intake. There is no need seen for administration of Narcan. Patient received 25 mg of Benadryl for itchiness and 4 mg sublingual Zofran for mild nausea. On re-evaluation patient is feeling much better and is noted to ambulate with a steady gait. Differential Diagnosis Differential Diagnoses: The differential diagnosis associated with the presentation includes Please see the discussion above Admission/Observation Consideration of admission/observation: Escalation of care including admission/observation considered Please see the discussion above Critical Care Time Critical Care Time Critical Care Time: Yes Total Critical Care Time: 30 Attestation: I personally attest to this time spent taking care of the patient. Discharge Plan Discharge Clinical Impression: Accidental overdose, Morphine overdose Patient Disposition: Home, Self-Care Instructions: Prescription Opioid Overdose (ED), Adult Overdose (ED) Additional Instructions: 1. Remove this medication from all other medications that you have in your possession. Put it in the freezer, or elsewhere. Return to the ER for any worsening symptoms. Prescriptions: No Action albuterol sulfate [ProAir HFA] 90 mcg/actuation HFA aerosol inhaler 2 puff inhalation Q4H Qty: 8.5 0RF loratadine 10 mg tablet 10 mg PO DAILY 30 Days Qty: 30 6RF bupropion HCl [Wellbutrin SR] 150 mg tablet sustained-release 12 hr 150 mg PO QAM Qty: 90 0RF fluticasone propionate [Flonase Allergy Relief] 50 mcg/actuation spray,suspension 2 spray intranasal BID 30 Days Qty: 16 3RF Rx Instructions: administer into each nostril levothyroxine 175 mcg tablet 175 mcg PO QAM 90 Days Qty: 90 0RF budesonide-formoterol [Symbicort] 160-4.5 mcg/actuation HFA aerosol inhaler 2 puff inhalation BID Qty: 10.2 0RF prednisone 20 mg tablet 60 mg PO DAILY 5 Days Qty: 15 0RF doxycycline hyclate 100 mg tablet 100 mg PO Q12H 10 Days Qty: 20 0RF morphine 15 mg tablet 15 mg PO TID PRN (Reason: pain) Qty: 10 0RF Rx Instructions: The patient may ask for partial fill; Partial Fill upon patient request. Xolair 150 mg recon soln 150 mg subcut Q4W naproxen 500 mg tablet 500 mg PO BID PRN (Reason: pain) 30 Days Qty: 60 0RF lidocaine 5 % adhesive patch,medicated 1 patch topical DAILY 30 Days Qty: 30 0RF Rx Instructions: leave on most painful area for up to 12 hrs montelukast 10 mg tablet 10 mg PO DAILY Qty: 90 0RF ipratropium-albuterol 0.5 mg-3 mg(2.5 mg base)/3 mL solution for nebulization 3 ml inhalation Q4-6H PRN (Reason: wheezing) 30 Days Qty: 270 6RF famotidine 20 mg tablet 40 mg PO DAILY Referrals: Thee Tay MD [Primary Care Provider] -
[2023-03-14 19:55] VITALS: BP 121/72; PULSE 74
[2023-03-14] MEDS: Ondansetron ODT 4 MG TAB.RAPDIS TRANSLINGU (20:53)
[2023-03-14] MEDS: diphenhydrAMINE HCL 25 MG CAPSULE PO (20:53)
== END 2023-03-14 21:05 | disposition home or self-care (01) ==
PROVIDERS: Emergency Provider Student in an Organized Health Care Education/Training Program; PCP Internal Medicine
DX: T50.7X1A Poisoning by analeptics and opioid receptor antagonists, accidental (unintentional), initial encounter (principal); R42 Dizziness and giddiness; Y92.9 Unspecified place or not applicable; Z87.891 Personal history of nicotine dependence
CPT/HCPCS: 99284

== ENCOUNTER 2023-03-16 11:30 | Outpatient (REF) | payer OTHER, MEDICAID, SELFPAY | END 2023-03-16 11:31 | disposition home or self-care (01) | LOC: HO.MDS 11:30 | PROVIDERS: Visit Provider Internal Medicine Pulmonary Disease | DX: J45.50 Severe persistent asthma, uncomplicated (principal) | CPT/HCPCS: 96372; J2357 ==

== ENCOUNTER 2023-04-02 12:45 | Outpatient (REF) | payer OTHER, MEDICAID, SELFPAY ==
--- NOTE | ~2023-04-02 | MM_ITS ---
EXAMINATION: MM DIAGNOSTIC DIGITAL BREAST TOMOSYNTHESIS, BILATERAL CLINICAL INFORMATION: Follow-up small oval densities right breast posteroinferior and slightly lateral axis. COMPARISON: Mammography: 06/26/2022, 12/10/2021 (BI-RADS 0), 04/12/2019, 04/07/2018; targeted right breast ultrasound 12/19/2021. TECHNIQUE: Digital breast tomosynthesis is performed in both the craniocaudal and mediolateral oblique views along with computer-aided detection (CAD). Synthesized 2D images are generated from the tomosynthesis. FINDINGS: There are scattered areas of fibroglandular density (ACR BI-RADS breast composition Category b). Mammography posterior of the 2 nodular asymmetry has been stable since 2018. This is benign. The slightly more inferior and anterior nodular asymmetry is also stable, and probably benign. This should be followed in one year. Otherwise, There are no suspicious masses, suspicious grouped calcifications, or areas of architectural distortion in either breast. The parenchymal pattern is stable from prior exams. MM/MM tomosynthesis diagnostic BI IMPRESSION: Probably benign findings related to small asymmetric density right breast. One-year follow-up recommended. No suspicious findings left breast. ASSESSMENT: BI-RADS BI-RADS 3 - Probably benign finding(s) - 12 month follow-up suggested RECOMMENDATION: 12 month diagnostic follow up Results were provided to the patient at time of visit by the technologist. This patient's information was entered into a reminder system with a target due date for their next mammogram.
== END 2023-04-02 12:46 | disposition home or self-care (01) ==
LOC: HO.MAMMO 12:45
PROVIDERS: PCP Internal Medicine; Visit Provider Internal Medicine
DX: R92.2 Inconclusive mammogram (principal)
CPT/HCPCS: 77062; 77066

== ENCOUNTER → 2023-04-02 13:00 | Outpatient (BNV) | payer OTHER, MEDICAID, SELFPAY | PROVIDERS: PCP Internal Medicine; Visit Provider Radiology Diagnostic Radiology | DX: R92.323 Mammographic fibroglandular density, bilateral breasts (principal); N63.10 Unspecified lump in the right breast, unspecified quadrant | CPT/HCPCS: 77062; 77066 ==

== ENCOUNTER 2023-04-03 13:17 | Outpatient (AMB) | payer OTHER, MEDICAID, SELFPAY ==
[2023-04-03 13:27] VITALS: BP 100/62; PULSE 80; O2SAT 97; BMI 36.5
--- NOTE | 2023-04-03 13:27 | MHC.PC.OV ---
Vital Signs 04/03/23 13:27 Height 5 ft 5 in Weight 219 lb 6 oz BMI 36.5 BP 100/62 Blood Pressure Location Rt brachial Position Sitting Pulse 80 Pulse Source Pulse Oximeter Pulse Oximetry (%) 97 Oxygen Delivery Method Room Air Intake Visit Reasons: FMLA forms Hand Dry Cleaner Required: No Accompanied by: Self / Same As Patient Allergies niacin [Niaspan Extended-Release] Allergy (Intermediate, Verified 04/03/23 13:27) skin blisters tramadol Allergy (Intermediate, Verified 04/03/23 13:27) seizures barley [BARLEY] Allergy (Unknown, Verified 04/03/23 13:27) UNKNOWN fluticasone [Advair Diskus] Allergy (Unknown, Verified 04/03/23 13:27) Shortness of Breath ibuprofen Allergy (Unknown, Verified 04/03/23 13:27) Swelling naratriptan Allergy (Unknown, Verified 04/03/23 13:27) unknown Penicillins [PENICILLINS] Allergy (Unknown, Verified 04/03/23 13:27) Unknown sumatriptan Allergy (Unknown, Verified 04/03/23 13:27) unknown trazodone [TRAZODONE] Allergy (Unknown, Verified 04/03/23 13:27) UNKNOWN equate cough drops sugar free Allergy (Mild, Uncoded 11/30/22 21:32) Unknown Medication List - Last Reconciled 04/03/23 by Thee Tay MD bupropion HCl (Wellbutrin SR) 150 mg PO QAM famotidine 40 mg PO DAILY fluticasone propionate 50 mcg/actuation (Flonase Allergy Relief) 2 sprays intranasal BID 30 days ipratropium-albuterol 0.5 mg-3 mg(2.5 mg base)/3 mL 3 mL inhalation Q4-6H PRN 30 days levothyroxine 175 mcg PO QAM 90 days lidocaine 5% 1 patch topical DAILY 30 days loratadine 10 mg PO DAILY 30 days montelukast 10 mg PO DAILY morphine 15 mg PO TID PRN naproxen 500 mg PO BID PRN 30 days omalizumab (Xolair) 150 mg subcut Q4W prednisone 60 mg (3 x 20 mg) PO DAILY 5 days ProAir HFA 90 mcg/actuation (albuterol sulfate) 2 puffs inhalation Q4H NS Symbicort 160-4.5 mcg/actuation (budesonide-formoterol) 2 puffs inhalation BID NS Tobacco use date assessed: 03/13/23 Dental Screening Dental Screen Date: 04/03/23 Did you have a dental visit in the last 12 months?: Yes Did you have a dental problem in the last 6 months where you did not have access to dental care?: No Was dental information given to patient?: Patient has dentist HPI FMLA forms HPI Details Patient came in to have more paperwork filled for the dates she had bronchitis and pneumonia Dated 01/26/2023 Paperwork filled, I have printed her emergency room notes and handed to patient so she can submit those with paperwork She is also requesting medication for chronic vertigo, meclizine sent [facility] Medical History PFO (patent foramen ovale) History of transesophageal echocardiography (LAN) Colitis Abnormal angiogram of head COVID-19 Asthma Thyroid disease GERD (gastroesophageal reflux disease) Anemia Aneurysm Surgical History History of surgery of uterus H/O endoscopy History of H/O brain surgery History of colonoscopy Family History Father Diabetes Arthritis Diverticulitis Leukemia Mental health disorder Lung cancer Mother Anemia Arthritis Colon polyps Myocardial infarction Brother Crohn's disease Testicular cancer Brother Cancer Paternal Grandfather Leukemia Other Substance use disorder Social History Household Members: Significant Other Housing: House Are you a primary out of school hours care worker to a significant other at home: No Do you presently have visiting nurse or other home services: No Alcohol intake: former Patient Tobacco Use Status: Former Tobacco user Tobacco use type: Cigarette e-Cigarette/Vaping Use: Never Used Advance Directives Date on File: 04/09/21 service: No 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al status: employed Cognitive needs: No Hearing needs: No Vision needs: Yes Questionnaire Thrive Questionnaire Date Thrive assessed: 11/13/21 MARKO-7 AMB Questionnaire MARKO-7 Date MARKO - 7 assessed: 11/13/21 Source: Developed by Drs. Masood Arredondo, Lesly B.W. Thor Pruitt and colleagues, with an educational phil from [employer]. Review of Systems Const All systems reviewed & are unremarkable except as noted in HPI and below Physical exam (Primary Care) Vital Signs: Last Vital Signs Pulse 80 04/03/23 13:27 BP 100/62 04/03/23 13:27 Pulse Ox 97 04/03/23 13:27 Oxygen Delivery Method Room Air 04/03/23 13:27 BMI result Body Mass Index 36.5 Tobacco/Smoking Status: Tobacco use Status Tobacco use date assessed 03/13/23 04/03/23 13:28 Patient Tobacco Use Status Former Tobacco user 04/03/23 13:28 Tobacco use type Cigarette 04/03/23 13:28 e-Cigarette/Vaping Use Never Used 04/03/23 13:28 Thrive Assessment: Date of Thrive Assessment Date Thrive assessed 11/13/21 04/03/23 13:28 Const General: no acute distress Orientation/consciousness: patient oriented x3 Eyes General: appearance normal, both eyes and all related structures Resp Effort & Inspection: normal respiratory effort and able to speak in complete sentences Auscultation: clear to auscultation bilaterally Neuro General: patient oriented x3 Psych Mental Status: mental status grossly normal Assessment and Plan Assessment & Plan (1) Chronic vertigo: Code(s): R42 - Dizziness and giddiness Plan Patient came in to have more paperwork filled for the dates she had bronchitis and pneumonia Dated 01/26/2023 Paperwork filled, I have printed her emergency room notes and handed to patient so she can submit those with paperwork She is also requesting medication for chronic vertigo, meclizine sent Medications: New meclizine 25 mg PO TID PRN 90 tabs 0RF dizziness 30 days Coding Level of Care Code Est Pt Level 3 (65322) Diagnoses Chronic vertigo R42
== END 2023-04-03 17:04 | disposition home or self-care (01) ==
PROVIDERS: PCP Internal Medicine; Visit Provider Internal Medicine
DX: R42 Dizziness and giddiness (principal)
CPT/HCPCS: 99213

== ENCOUNTER 2023-04-11 16:11 | Emergency (ER) | payer OTHER, MEDICAID, SELFPAY ==
--- NOTE | ~2023-04-11 | XR_ITS ---
EXAMINATION: XR lumbar spine 2-3V, XR hip LT min 2V, XR shoulder LT min 2V, XR hand RT 2V CLINICAL INFORMATION: Reason for Exam midline lumber tenderness s/p fall COMPARISON: Chest radiograph 03/08/2023, CT abdomen pelvis 09/03/2022, MRI lumbar spine 10/21/2018 TECHNIQUE: AP, lateral radiographs of the left hip and AP pelvis; 3 view series lumbar spine; 3 view series left shoulder; 3 view series right hand FINDINGS: Left hip: No fractures or arthropathic changes identified. No soft tissue inflammatory changes or emphysematous changes visualized. The pelvis appears intact. Normal appearance of the sacral iliac joints. Incidental 6 mm dense sclerotic focus in projection with the left ilium which may represent an incidental bone island. Lumbar spine: 4 lumbar type vertebral bodies are identified with presumed minimal partial bilateral sacralization of the L5 vertebral body. Accentuation of the normal lumbar lordosis is present and may represent a chronic finding. No vertebral body compression deformities visualized. Mild aortic calcific atherosclerosis visualized. Mild bilateral facet hypertrophic changes L4-L5 and L5-S1. Visualized transverse processes appear intact. Left shoulder: Visualized left ribs and lung are normal in appearance. No gross abnormalities of the visualized thoracic vertebral bodies identified. Glenohumeral and acromioclavicular joint spacing and alignment are normal in appearance. No dystrophic calcifications or arthropathic changes visualized. Right hand: No fractures, malalignments or arthropathic changes visualized. No soft tissue inflammatory changes or soft tissue emphysematous changes noted. XR/XR hand RT 2V IMPRESSION: LEFT HIP: Normal. LUMBAR SPINE: 1. No acute abnormalities. 2. 4 lumbar type vertebral bodies with presumed minimal partial bilateral sacralization of the L5 vertebral body. 3. Mild aortic calcific atherosclerosis. LEFT SHOULDER: Normal. RIGHT HAND: Normal.
--- NOTE | ~2023-04-11 | XR_ITS ---
EXAMINATION: XR lumbar spine 2-3V, XR hip LT min 2V, XR shoulder LT min 2V, XR hand RT 2V CLINICAL INFORMATION: Reason for Exam midline lumber tenderness s/p fall COMPARISON: Chest radiograph 03/08/2023, CT abdomen pelvis 09/03/2022, MRI lumbar spine 10/21/2018 TECHNIQUE: AP, lateral radiographs of the left hip and AP pelvis; 3 view series lumbar spine; 3 view series left shoulder; 3 view series right hand FINDINGS: Left hip: No fractures or arthropathic changes identified. No soft tissue inflammatory changes or emphysematous changes visualized. The pelvis appears intact. Normal appearance of the sacral iliac joints. Incidental 6 mm dense sclerotic focus in projection with the left ilium which may represent an incidental bone island. Lumbar spine: 4 lumbar type vertebral bodies are identified with presumed minimal partial bilateral sacralization of the L5 vertebral body. Accentuation of the normal lumbar lordosis is present and may represent a chronic finding. No vertebral body compression deformities visualized. Mild aortic calcific atherosclerosis visualized. Mild bilateral facet hypertrophic changes L4-L5 and L5-S1. Visualized transverse processes appear intact. Left shoulder: Visualized left ribs and lung are normal in appearance. No gross abnormalities of the visualized thoracic vertebral bodies identified. Glenohumeral and acromioclavicular joint spacing and alignment are normal in appearance. No dystrophic calcifications or arthropathic changes visualized. Right hand: No fractures, malalignments or arthropathic changes visualized. No soft tissue inflammatory changes or soft tissue emphysematous changes noted. XR/XR shoulder LT min 2V IMPRESSION: LEFT HIP: Normal. LUMBAR SPINE: 1. No acute abnormalities. 2. 4 lumbar type vertebral bodies with presumed minimal partial bilateral sacralization of the L5 vertebral body. 3. Mild aortic calcific atherosclerosis. LEFT SHOULDER: Normal. RIGHT HAND: Normal.
--- NOTE | ~2023-04-11 | XR_ITS ---
EXAMINATION: XR lumbar spine 2-3V, XR hip LT min 2V, XR shoulder LT min 2V, XR hand RT 2V CLINICAL INFORMATION: Reason for Exam midline lumber tenderness s/p fall COMPARISON: Chest radiograph 03/08/2023, CT abdomen pelvis 09/03/2022, MRI lumbar spine 10/21/2018 TECHNIQUE: AP, lateral radiographs of the left hip and AP pelvis; 3 view series lumbar spine; 3 view series left shoulder; 3 view series right hand FINDINGS: Left hip: No fractures or arthropathic changes identified. No soft tissue inflammatory changes or emphysematous changes visualized. The pelvis appears intact. Normal appearance of the sacral iliac joints. Incidental 6 mm dense sclerotic focus in projection with the left ilium which may represent an incidental bone island. Lumbar spine: 4 lumbar type vertebral bodies are identified with presumed minimal partial bilateral sacralization of the L5 vertebral body. Accentuation of the normal lumbar lordosis is present and may represent a chronic finding. No vertebral body compression deformities visualized. Mild aortic calcific atherosclerosis visualized. Mild bilateral facet hypertrophic changes L4-L5 and L5-S1. Visualized transverse processes appear intact. Left shoulder: Visualized left ribs and lung are normal in appearance. No gross abnormalities of the visualized thoracic vertebral bodies identified. Glenohumeral and acromioclavicular joint spacing and alignment are normal in appearance. No dystrophic calcifications or arthropathic changes visualized. Right hand: No fractures, malalignments or arthropathic changes visualized. No soft tissue inflammatory changes or soft tissue emphysematous changes noted. XR/XR lumbar spine 2-3V IMPRESSION: LEFT HIP: Normal. LUMBAR SPINE: 1. No acute abnormalities. 2. 4 lumbar type vertebral bodies with presumed minimal partial bilateral sacralization of the L5 vertebral body. 3. Mild aortic calcific atherosclerosis. LEFT SHOULDER: Normal. RIGHT HAND: Normal.
[2023-04-11 16:31] VITALS: BP 131/86; PULSE 82; RESP 16; TEMP 36.3; O2SAT 96; BMI 34.9
--- NOTE | 2023-04-11 17:26 | ED.BACK ---
HPI - Back Pain/Injury General Chief Complaint: Back Pain/Injury Stated Complaint: hip and back pain Time Seen by Provider: 04/11/23 17:04 Source: patient Mode of arrival: ambulatory Limitations: no limitations History of Present Illness HPI Narrative: 53-year-old female presents the ED today with multiple complaints s/p falling off of a stool at work. Patient works at [employer]. States that yesterday when she went to sit on a stool it collapsed from under her, causing her to fall backward. Denies head strike or LOC. States her right hand got caught along stool leg. Since this time she reports right hand pain left shoulder pain, left hip pain and bilateral lower back pain. Hip and back pain are exacerbated with walking. States her right pain hand pain has resolved after taking ibuprofen. Last dose one hour prior to arrival. Left shoulder pain worse with movement of the left upper extremity. Patient states that it feels like she pulled a muscle. Ambulating without assistive devices. Denies bowel or bladder incontinence, saddle anesthesia, numbness/tingling/weakness of the extremities. Related Data Home Medications Medication Instructions Recorded Confirmed famotidine 20 mg tablet 40 mg PO DAILY 10/16/22 04/03/23 omalizumab 150 mg subcutaneous 150 mg subcut Q4W 10/29/22 04/03/23 solution (Xolair) Previous Rx's Medication Instructions Recorded ProAir HFA 90 mcg/actuation 2 puff inhalation Q4H #8.5 grams 02/19/22 aerosol inhaler (albuterol sulfate) ipratropium 0.5 mg-albuterol 3 mg 3 ml inhalation Q4-6H PRN wheezing 10/14/22 (2.5 mg base)/3 mL nebulization 30 days #270 mL soln loratadine 10 mg tablet 10 mg PO DAILY 30 days #30 tabs 11/10/22 lidocaine 5 % topical patch 1 patch topical DAILY 30 days #30 12/03/22 ea naproxen 500 mg tablet 500 mg PO BID PRN pain 30 days #60 12/03/22 tabs bupropion HCl 150 mg tablet,12 hr 150 mg PO QAM #90 tabs 01/18/23 sustained-release (Wellbutrin SR) montelukast 10 mg tablet 10 mg PO DAILY #90 tabs 03/03/23 fluticasone propionate 50 2 spray intranasal BID 30 days #16 03/04/23 mcg/actuation nasal grams spray,suspension (Flonase Allergy Relief) levothyroxine 175 mcg tablet 175 mcg PO QAM 90 days #90 tabs 03/04/23 morphine 15 mg immediate release 15 mg PO TID PRN pain #10 tabs 03/08/23 tablet prednisone 20 mg tablet 60 mg (3 x 20 mg) PO DAILY 5 days 03/08/23 #15 tabs Symbicort 160 mcg-4.5 2 puff inhalation BID #10.2 grams 03/13/23 mcg/actuation HFA aerosol inhaler (budesonide-formoterol) meclizine 25 mg tablet 25 mg PO TID PRN dizziness 30 days 04/03/23 #90 tabs cyclobenzaprine 5 mg tablet 5 mg PO BEDTIME PRN muscle spasm 04/11/23 #7 tabs lidocaine 5 % topical patch 1 patch topical DAILY #15 ea 04/11/23 (Lidoderm) naproxen 500 mg tablet 500 mg PO Q8-12H PRN pain (scale 04/11/23 score 4-6) #14 tabs Allergies Allergy/AdvReac Type Severity Reaction Status Date / Time niacin Allergy Intermediate skin Verified 04/11/23 16:31 [Niaspan Extended-Release] blisters tramadol Allergy Intermediate seizures Verified 04/11/23 16:31 barley [BARLEY] Allergy Unknown UNKNOWN Verified 04/11/23 16:31 fluticasone [Advair Diskus] Allergy Unknown Shortness Verified 04/11/23 16:31 of Breath ibuprofen Allergy Unknown Swelling Verified 04/11/23 16:31 naratriptan Allergy Unknown unknown Verified 04/11/23 16:31 Penicillins [PENICILLINS] Allergy Unknown Unknown Verified 04/11/23 16:31 sumatriptan Allergy Unknown unknown Verified 04/11/23 16:31 trazodone [TRAZODONE] Allergy Unknown UNKNOWN Verified 04/11/23 16:31 equate cough drops sugar free Allergy Mild Unknown Uncoded 11/30/22 21:32 Review of Systems Review of Systems: Constitutional: No fever, chills, fatigue, night sweats, weight changes ENT/Mouth: No ear pain, hearing loss, nasal congestion, sinus pain, rhinorrhea, sore throat Eyes: No eye pain, swelling, redness, vision changes, discharge Cardio: No chest pain, palpitations, FISHER, orthopnea, peripheral edema Pulm: No SOB, cough, sputum, wheezing, dyspnea, hemoptysis GI: No nausea, vomiting, hematemesis, abdominal pain, diarrhea, constipation, hematochezia, melena : No irregular bleeding, dysuria, frequency, urgency, hesitancy, hematuria, flank pain, urinary flow changes, urinary incontinence or retention MSK: No neck pain, joint pain, myalgias, +back pain, +left shoulder pain, +right hand pain, +left hip pain Skin: No lesions, rashes Neuro: No weakness, numbness, paresthesias, LOC, dizziness, headache All other systems reviewed and are negative. [facility] Past Medical History Attestation statement: The following information was validated with the patient. Source: old records reviewed and nursing notes reviewed Medical History PFO (patent foramen ovale) History of transesophageal echocardiography (LAN) Colitis Abnormal angiogram of head COVID-19 Asthma Thyroid disease GERD (gastroesophageal reflux disease) Anemia Aneurysm Surgical History History of surgery of uterus H/O endoscopy History of H/O brain surgery History of colonoscopy Family History Family History Father Diabetes Arthritis Diverticulitis Leukemia Mental health disorder Lung cancer Mother Anemia Arthritis Colon polyps Myocardial infarction Brother Crohn's disease Testicular cancer Brother Cancer Paternal Grandfather Leukemia Other Substance use disorder Social History Social History Household Members: Significant Other Housing: House Are you a primary child care coordinator to a significant other at home: No Do you presently have visiting nurse or other home services: No Alcohol intake: former Patient Tobacco Use Status: Former Tobacco user Tobacco use type: Cigarette e-Cigarette/Vaping Use: Never Used Advance Directives: Yes Advance Directives on File: Yes Advance Directives Date on File: 04/09/21 service: No 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al status: employed Cognitive needs: No Hearing needs: No Vision needs: Yes Physical Exam Vital Signs: Vital Signs: Last Vital Signs Temp 97.4 F 04/11/23 16:31 Pulse 82 04/11/23 16:31 Resp 16 04/11/23 16:31 BP 131/86 04/11/23 16:31 Pulse Ox 96 04/11/23 16:31 O2 Del Method Room Air 04/11/23 16:31 BMI result Body Mass Index 34.9 Vital signs stable Const: General: cooperative, comfortable, no acute distress, alert and awake Orientation/consciousness: patient oriented x3 Limitations: no limitations HEENT: Head: Yes normal to inspection, Yes normocephalic and Yes atraumatic Ears: hearing grossly normal bilaterally, external ears normal and EAC's normal General nose exam: Normal external nose present and Normal nares present Face and sinus: Yes normal facial exam Eyes: General: appearance normal, both eyes and all related structures Conjunctivae: conjunctivae normal Sclerae: sclerae normal Pupils: Equal, round and reactive pupils present Neck: Neck: Yes normal visual inspection and Yes full ROM Chest: Chest palpation & inspection: normal inspection of the chest and normal palpation of entire chest wall Resp: Effort & Inspection: normal respiratory effort Auscultation: clear to auscultation bilaterally Cardio: Rate: regular rate Rhythm: regular rhythm Peripheral pulses: radial pulses present, posterior tibial pulses present and dorsalis pedis present GI: Inspection: Yes normal to inspection Palpation (GI): Soft to palpation and nontender : General: Yes no CVA tenderness Back/Spine/Pelvis: Other: Midline lumbar spinous tenderness, no overlying warmth or fluctuance. There is left paraspinal muscle tenderness to palpation. No step-off deformity. Ambulating with steady gait. Back: no CVA tenderness Skin: General skin exam: no rashes or lesions noted Neuro: Other: Strength 5/5 intact throughout.?No saddle anesthesia.?Sensation intact to light touch. Neurovascular intact distally.? General: patient oriented x3, gait normal and moves all extremities Cranial nerves: Yes Equal, round and reactive pupils present Deep tendon reflexes (DTR's): Right patellar reflex intensity grade: 2+ and Left patellar reflex intensity grade: 2+ Extrem: Other: + bilateral hips without overlying deformity or skin changes. Full ROM intact without pain or discomfort. Nontender to palpation. + left shoulder with full ROM intact. No overlying skin changes or obvious deformity. No palpable deformity or tenderness. + right hand without overlying skin changes or abrasions. Full ROM of right wrist intact. Full ROM intact to MCP, PIP, and DPIs of digit on right hand. General: Yes normal to inspection, Yes full ROM and Yes capillary refill normal Course Course Course Narrative: X-rays negative for fracture or dislocation. Patient's pain is likely musculoskeletal. Will send patient home with lidocaine patch, Flexeril and naproxen for pain. Patient has remained stable throughout ED visit today. She is ambulating with steady gait. Discussed strict return precautions. All questions answered at this time. Patient is agreeable with disposition and stable for discharge. Medications Administered Discontinued Medications Generic Name Dose Route Start Last Admin Trade Name Arthurq PRN Reason Stop Dose Admin Acetaminophen 975 mg 04/11/23 18:08 04/11/23 18:27 Acetaminophen 325 Mg Tablet PO 04/11/23 18:09 975 mg ONCE ONE Administration Lidocaine 1 patch 04/11/23 18:08 04/11/23 18:28 Lidocaine 4 % Patch Adh..Patch TRANSDERMA 04/11/23 18:09 1 patch ONCE ONE Administration Protocol Medical Decision Making Medical Decision Making MDM Narrative: 53-year-old female presents the ED today with multiple complaints s/p falling off of a stool at work. Vital signs stable. Patient is nontoxic appearing and in no acute distress. Left shoulder without overlying skin changes. Full ROM intact without pain or discomfort. Strength 5/5 intact. Nontender to palpation. Full ROM it intact to bilateral hip. Negative straight leg raise. Midline lumbar spinous tenderness, no step-off deformity. Left-sided paraspinal muscle tenderness to palpation. No overlying skin changes or palpable mass/ fluctuance. Right hand unremarkable, full ROM intact without overlying skin changes. Clinical concern for MSK sprain/strain, fracture, dislocation. Unlikely rotator cuff injury, cauda equina, epidural abscess, cord compression. Plan for radiographs, pain control and re-evaluation. Differential Diagnosis Differential Diagnoses: The differential diagnosis associated with the presentation includes As above. Admission/Observation Not indicated. Independent Interpretation I performed an independent interpretation of an: Plain X-Ray Interpretation: xr right hand/ wrist without acute fracture or dislocation, agree with radiologist's interpretation. xr left shoulder wtihout acute fracture or dislocation, agree with radiologits's interpretation. xr left hip without acute fracture, agree with radiologist's interpretation. xr lumbar spine without acute fracture, agree with radiologist's interpreation. Radiology Impression Discussion of test interpretation with radiology: I have reviewed the radiologist's reading. Radiologist Impression: XR hip LT min 2V IMPRESSION: LEFT HIP: Normal. LUMBAR SPINE: 1. No acute abnormalities. 2. 4 lumbar type vertebral bodies with presumed minimal partial bilateral sacralization of the L5 vertebral body. 3. Mild aortic calcific atherosclerosis. LEFT SHOULDER: Normal. RIGHT HAND: Normal. External Record Review External record reviewed: Inpatient record Prescription Management I considered prescription management with: Pain Medication Social Determinants Patient?s care significantly limited by Social Determinants of Health including: Other Social Determinant of Health Critical Care Time Critical Care Time Critical Care Time: No Discharge Plan Discharge Clinical Impression: Musculoskeletal pain Patient Disposition: Home, Self-Care Instructions: Musculoskeletal Pain (ED) Additional Instructions: Your imaging studies today did not show acute fracture. Your pain is likely musculoskeletal. Avoid bending, lifting, or twisting. Use ice several times per day for 20 minutes at a time for the next 48 hours and then change to heat. Flexeril is a muscle relaxer. Take this at night as it makes you drowsy. Do not drive, drink alcohol, or operate machinery while taking it. Naproxen is an anti-inflammatory / pain medication. Take with food. Do not take this with Ibuprofen or other NSAIDs as this may increase risk of GI bleeding. Lidoderm patches are numbing patches. Apply to painful areas. In addition you may take Tylenol at home. Follow up with your primary care provider as needed If your pain worsens, if you develop new numbness, tingling, weakness, loss of bowel or bladder function call 911 or return to the ER immediately for evaluation. Prescriptions: New lidocaine [Lidoderm] 5 % adhesive patch,medicated 1 patch topical DAILY Qty: 15 0RF Rx Instructions: leave on most painful area for up to 12 hrs naproxen 500 mg tablet 500 mg PO Q8-12H PRN (Reason: pain (scale score 4-6)) Qty: 14 0RF cyclobenzaprine 5 mg tablet 5 mg PO BEDTIME PRN (Reason: muscle spasm) Qty: 7 0RF No Action albuterol sulfate [ProAir HFA] 90 mcg/actuation HFA aerosol inhaler 2 puff inhalation Q4H Qty: 8.5 0RF loratadine 10 mg tablet 10 mg PO DAILY 30 Days Qty: 30 6RF bupropion HCl [Wellbutrin SR] 150 mg tablet sustained-release 12 hr 150 mg PO QAM Qty: 90 0RF fluticasone propionate [Flonase Allergy Relief] 50 mcg/actuation spray,suspension 2 spray intranasal BID 30 Days Qty: 16 3RF Rx Instructions: administer into each nostril levothyroxine 175 mcg tablet 175 mcg PO QAM 90 Days Qty: 90 0RF budesonide-formoterol [Symbicort] 160-4.5 mcg/actuation HFA aerosol inhaler 2 puff inhalation BID Qty: 10.2 0RF prednisone 20 mg tablet 60 mg PO DAILY 5 Days Qty: 15 0RF morphine 15 mg tablet 15 mg PO TID PRN (Reason: pain) Qty: 10 0RF Rx Instructions: The patient may ask for partial fill; Partial Fill upon patient request. Xolair 150 mg recon soln 150 mg subcut Q4W naproxen 500 mg tablet 500 mg PO BID PRN (Reason: pain) 30 Days Qty: 60 0RF lidocaine 5 % adhesive patch,medicated 1 patch topical DAILY 30 Days Qty: 30 0RF Rx Instructions: leave on most painful area for up to 12 hrs montelukast 10 mg tablet 10 mg PO DAILY Qty: 90 0RF meclizine 25 mg tablet 25 mg PO TID PRN (Reason: dizziness) 30 Days Qty: 90 0RF ipratropium-albuterol 0.5 mg-3 mg(2.5 mg base)/3 mL solution for nebulization 3 ml inhalation Q4-6H PRN (Reason: wheezing) 30 Days Qty: 270 6RF famotidine 20 mg tablet 40 mg PO DAILY Stand Alone Forms: Work/School Release Interventions: ED Discharge Assessment Last Done: 04/11/23 18:36 Discharge Date/Time: 04/11/23 18:38
[2023-04-11] MEDS: Acetaminophen 325 MG TABLET 975 MG PO (18:27)
[2023-04-11] MEDS: Lidocaine 4 % Patch ADH..PATCH 1 PATCH TRANSDERMA (18:28)
== END 2023-04-11 18:38 | disposition home or self-care (01) ==
PROVIDERS: Emergency Provider Emergency Medicine; PCP Internal Medicine
DX: Z04.2 Encounter for examination and observation following work accident (principal); M79.18 Myalgia, other site; Z87.891 Personal history of nicotine dependence
CPT/HCPCS: 72100; 73030; 73120; 73502; 99283

== ENCOUNTER 2023-04-14 11:42 | Outpatient (REF) | payer OTHER, MEDICAID, SELFPAY | END 2023-04-14 11:43 | disposition home or self-care (01) | LOC: HO.MDS 11:42 | PROVIDERS: PCP Internal Medicine; Visit Provider Internal Medicine Pulmonary Disease | DX: J45.50 Severe persistent asthma, uncomplicated (principal) | CPT/HCPCS: 96372; J2357 ==

== ENCOUNTER 2023-04-28 13:53 | Emergency (ER) | payer MEDICAID, SELFPAY ==
--- NOTE | ~2023-04-28 | CT_ITS ---
EXAMINATION: CT ABDOMEN AND PELVIS WITHOUT CONTRAST CLINICAL INFORMATION: Left lower quadrant pain and diarrhea COMPARISON: CT abdomen pelvis 09/03/2022 TECHNIQUE: Multidetector volumetric imaging was performed from the superior aspect of the liver through the pubic symphysis. Sagittal and coronal reformatted images were obtained on the technologist's workstation. This CT examination was performed using dose optimization techniques as appropriate, variously including the following: *Automated exposure control *Adjustment of mA and/or kV according to patient size (this includes techniques or standardized protocols for targeted exams where dose is matched to indication/reason for exam; i.e. extremities or head) *Use of iterative reconstruction technique DLP: 823 mGy-cm FINDINGS: LUNG BASES: Focal atelectatic changes left lung base. The right lung base is unremarkable. The heart size is normal. A small hiatal hernia is noted. LIVER, GALLBLADDER, AND BILIARY TREE: The liver is normal in size, shape, and attenuation. No focal hepatic lesion or biliary ductal dilatation is present. There are multiple gallstones without wall thickening or pericholecystic fluid collection. PANCREAS: Unremarkable. SPLEEN: Unremarkable. ADRENAL GLANDS: Unremarkable. KIDNEYS AND URETERS: The kidneys are normal in size, shape, and attenuation. No hydronephrosis, hydroureter, or calculi seen. No perinephric stranding. BLADDER: Unremarkable. GASTROINTESTINAL TRACT: There is moderate scattered stool stool and gas seen throughout the colon without any significant distention. The small bowel loops are normal caliber. Appendix is normal caliber. No free air or free fluid seen. ABDOMINAL WALL: There is small umbilical hernia containing fat. LYMPH NODES: Normal. VASCULAR: Unremarkable. PELVIC VISCERA: The uterus is anteverted and appears unremarkable. No free air or free fluid seen. There is soft tissue edema or thickening along the posterior subcutaneous soft tissues of lumbar spine, nonspecific. OSSEOUS STRUCTURES: No aggressive lytic or sclerotic process seen. CT/CT abdomen pelvis wo IV con IMPRESSION: No acute process seen in abdomen or pelvis. Moderate constipation. Small hiatal hernia.. Moderate to significant constipation.. Fleischner guidelines were followed.
[2023-04-28 14:53] VITALS: BP 136/88; PULSE 97; RESP 16; TEMP 37.1; O2SAT 96; BMI 36.0
--- NOTE | 2023-04-28 14:54 | ED_ITS ---
HPI - Nausea/Vomiting/Diarrhea General Chief complaint: Abdominal Pain Stated complaint: Diverticulitis/diarrhea Time Seen by Provider: 04/29/23 01:13 Source: patient Mode of arrival: ambulatory History of Present Illness HPI Narrative: 23-year-old female with history of diverticulitis comes in with nausea and vomiting since Thursday, episodes of diarrhea but overall these symptoms have improved. Patient has a sick contact in her stepson. Related Data Home Medications Medication Instructions Recorded Confirmed famotidine 20 mg tablet 40 mg PO DAILY 10/16/22 04/03/23 omalizumab 150 mg subcutaneous 150 mg subcut Q4W 10/29/22 04/03/23 solution (Xolair) Previous Rx's Medication Instructions Recorded ProAir HFA 90 mcg/actuation 2 puff inhalation Q4H #8.5 grams 02/19/22 aerosol inhaler (albuterol sulfate) ipratropium 0.5 mg-albuterol 3 mg 3 ml inhalation Q4-6H PRN wheezing 10/14/22 (2.5 mg base)/3 mL nebulization 30 days #270 mL soln loratadine 10 mg tablet 10 mg PO DAILY 30 days #30 tabs 11/10/22 lidocaine 5 % topical patch 1 patch topical DAILY 30 days #30 12/03/22 ea naproxen 500 mg tablet 500 mg PO BID PRN pain 30 days #60 12/03/22 tabs montelukast 10 mg tablet 10 mg PO DAILY #90 tabs 03/03/23 fluticasone propionate 50 2 spray intranasal BID 30 days #16 03/04/23 mcg/actuation nasal grams spray,suspension (Flonase Allergy Relief) levothyroxine 175 mcg tablet 175 mcg PO QAM 90 days #90 tabs 03/04/23 morphine 15 mg immediate release 15 mg PO TID PRN pain #10 tabs 03/08/23 tablet Symbicort 160 mcg-4.5 2 puff inhalation BID #10.2 grams 03/13/23 mcg/actuation HFA aerosol inhaler (budesonide-formoterol) meclizine 25 mg tablet 25 mg PO TID PRN dizziness 30 days 04/03/23 #90 tabs cyclobenzaprine 5 mg tablet 5 mg PO BEDTIME PRN muscle spasm 04/11/23 #7 tabs lidocaine 5 % topical patch 1 patch topical DAILY #15 ea 04/11/23 (Lidoderm) naproxen 500 mg tablet 500 mg PO Q8-12H PRN pain (scale 04/11/23 score 4-6) #14 tabs bupropion HCl 150 mg tablet,12 hr 150 mg PO QAM #90 tabs 04/25/23 sustained-release (Wellbutrin SR) ondansetron 4 mg disintegrating 4 mg PO Q8H PRN nausea and 04/29/23 tablet vomiting 4 days #10 tabs Allergies Allergy/AdvReac Type Severity Reaction Status Date / Time niacin Allergy Intermediate skin Verified 04/28/23 14:52 [Niaspan Extended-Release] blisters tramadol Allergy Intermediate seizures Verified 04/28/23 14:52 barley [BARLEY] Allergy Unknown UNKNOWN Verified 04/28/23 14:52 fluticasone [Advair Diskus] Allergy Unknown Shortness Verified 04/28/23 14:52 of Breath ibuprofen Allergy Unknown Swelling Verified 04/28/23 14:52 naratriptan Allergy Unknown unknown Verified 04/28/23 14:52 Penicillins [PENICILLINS] Allergy Unknown Unknown Verified 04/28/23 14:52 sumatriptan Allergy Unknown unknown Verified 04/28/23 14:52 trazodone [TRAZODONE] Allergy Unknown UNKNOWN Verified 04/28/23 14:52 equate cough drops sugar free Allergy Mild Unknown Uncoded 04/28/23 14:52 Review of Systems 2 Review of Systems: Pertinent positives and negatives as stated in HPI [facility] Past Medical History Source: nursing notes reviewed Onset Date is defined in the Problem List Problems that require an onset date and time if occurred within 24 hrs of arrival to the ED Aortic Dissection and Rupture; Neurologic impairment; Cardiopulmonary Arrest; Endotracheal Intubation; Insertion or Replacement of Mechanical Circulatory Assist Device Medical History PFO (patent foramen ovale) History of transesophageal echocardiography (LAN) Colitis Abnormal angiogram of head COVID-19 Asthma Thyroid disease GERD (gastroesophageal reflux disease) Anemia Aneurysm Surgical History History of surgery of uterus H/O endoscopy History of H/O brain surgery History of colonoscopy Family History Family History Father Diabetes Arthritis Diverticulitis Leukemia Mental health disorder Lung cancer Mother Anemia Arthritis Colon polyps Myocardial infarction Brother Crohn's disease Testicular cancer Brother Cancer Paternal Grandfather Leukemia Other Substance use disorder Social History Social History Household Members: Significant Other Housing: House Are you a primary manager progressive care to a significant other at home: No Do you presently have visiting nurse or other home services: No Alcohol intake: former Patient Tobacco Use Status: Former Tobacco user Tobacco use type: Cigarette e-Cigarette/Vaping Use: Never Used Advance Directives: Yes Advance Directives Information Provided: Yes Advance Directives on File: No Advance Directives Date on File: 04/09/21 service: No 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al status: employed Cognitive needs: No Hearing needs: No Vision needs: Yes Physical Exam 2 Vital Signs: Vital Signs: Last Vital Signs Temp 98.7 F 04/28/23 14:53 Pulse 97 04/28/23 14:53 Resp 16 04/28/23 14:53 BP 136/88 04/28/23 14:53 Pulse Ox 96 04/28/23 14:53 O2 Del Method Room Air 04/28/23 14:53 BMI result Body Mass Index 36.0 VITAL SIGNS: Reviewed. GENERAL: Well developed, well nourished, in no acute distress. HEAD: Normocephalic/atraumatic EYES: PERRLA, EOMI EARS: Ext canals without abnormality NOSE: Nares patent bilateral OROPHARYNX: no oral lesions noted, posterior pharynx clear NECK: Supple, no adenopathy LUNGS: Normal breath sounds, no tachypnea/wheeze/rhonchi/rales. SpO2<96> CARDIOVASCULAR: Regular rate and rhythm without noted murmurs ABDOMEN: Soft, non-tender, non-distended with bowel sounds. MUSCULOSKELETAL: No tenderness, deformities, or effusions noted on gross inspection. EXTREMITIES: No cyanosis, clubbing or edema. SKIN: Inspection of the skin reveals no rashes NEUROLOGIC: Alert and oriented x 4. Strength and sensation to light touch were grossly intact x 4. Course Course Course Narrative: This is an RME: Additional HPI, ROS, PE not included below will be deferred to primary provider. This is a [id number], hx of diverticulitis, left frontal lobe anneursym with coil, asthma, hypothyroidism, presenting to the ER with complaints of nausea, vomiting and diarrhea and LLQ pain x 3 days. Hx of diverticulitis. Also reporting decreased urination volume and frequency. Increased fatigue. Reporting subjective fevers and chills. Plan: Labs, UA, CT abd Medications Administered Discontinued Medications Generic Name Dose Route Start Last Admin Trade Name Freq PRN Reason Stop Dose Admin Ondansetron HCl 4 mg 04/29/23 01:50 04/29/23 02:04 Ondansetron Odt 4 Mg Tab.Rapdis TRANSLINGU 04/29/23 01:51 4 mg ONCE ONE Administration Medical Decision Making Medical Decision Making [facility] Narrative: 53-year-old female with history and clinical presentation, DDX: Diverticulitis, viral gastroenteritis, UTI, renal colic, lower clinical suspicion for SBO. Reviewed all investigations and hematologic indices are negative for leukocytosis/left shift/anemia or thrombocytopenia. Chemistry indices are negative for evidence of JOI her electrolytes/liver enzyme derangements. Lipase is 13 and within normal limits. Urinalysis negative UTI hematuria. CT scan does not demonstrate any obstruction/diverticulitis or renal colic. Otherwise, my interpretation is in agreement with radiology's impression. My interpretation that patient is suffering from viral gastro enteritis, she received Zofran here in the emergency room, her last episodes of vomiting were a couple of days ago and last diarrheal episode was earlier today. She understands she will go home with a prescription for antinausea medication and she is otherwise discharged home. Differential Diagnosis Differential Diagnoses: The differential diagnosis associated with the presentation includes Please see the discussion above Admission/Observation Consideration of admission/observation: Escalation of care including admission/observation considered Please see the discussion above Lab Data [facility] Lab Attestation statement: I reviewed the patient's lab results. Please see the discussion above 04/28/23 15:37 04/28/23 15:37 Labs: Lab Results 04/28/23 Range/Units 15:37 WBC 6.1 (4.8-10.8) X10*3/uL RBC 5.19 (4.20-5.50) X10*6/uL Hgb 13.8 (12.0-16.0) g/dl Hct 40.7 (37.0-47.0) % MCV 78.4 L (80.0-98.0) fL MCH 26.6 L (27.0-33.0) pg MCHC 33.9 (31.0-35.0) g/dl RDW 13.3 (11.0-16.0) % Plt Count 205 (160-400) X10*3/uL MPV 10.3 (9.4-12.3) fL Immature Gran % (Auto) 0.2 (0.0-0.4) % Neut % (Auto) 64.9 (45-73) % Lymph % (Auto) 24.5 (20-40) % [place] % (Auto) 7.6 (2-11) % Eos % (Auto) 2.3 (0-4) % Baso % (Auto) 0.5 (0-2) % Lymph # (Auto) 1.5 (1.2-4.9) X10*3/uL [place] # (Auto) 0.5 (0.1-1.2) X10*3/uL Eos # (Auto) 0.1 (0.0-0.4) X10*3/uL Baso # (Auto) 0.0 (0.0-0.2) X10*3/uL Abs Immat Gran (auto) 0.01 (0.00-0.03) X10*3/uL Absolute Neuts (auto) 3.9 (2.0-8.3) x10*3/uL Absolute Nucleated RBC 0.000 (0.0-0.012) X10*3/uL Nucleated RBC % (auto) 0.0 (0.0-0.2) /100WBC Sodium 139 (135-145) mmol/L Potassium 3.7 (3.3-5.1) mmol/L Chloride 110 H (96-108) mmol/L Carbon Dioxide 20 L (22-29) mmol/L Anion Gap 13 (12-20) BUN 9 (9-16) mg/dL Creatinine 0.60 (0.5-1.4) mg/dL Estim Creat Clear Calc 127.2 Estimated GFR > 60 Random Glucose 99 (60-115) mg/dL Calcium 9.2 (8.4-10.2) mg/dL Total Bilirubin 0.3 (0.0-1.0) mg/dL Direct Bilirubin 0.1 (0.0-0.5) mg/dL AST 19 (5-31) U/L ALT 16 (0-31) U/L Alkaline Phosphatase 126 H (39-117) U/L Total Protein 6.5 (6.5-8.0) g/dL Albumin 3.9 (3.5-5.0) g/dL Lipase 13 (8-78) U/L Urine Color Yellow Urine Appearance Clear Urine pH 5.5 (5.0-9.0) Ur Specific Marcus 1.010 (1.005-1.025) Urine Protein Negative (Neg-Trace) mg/dL Urine Glucose (UA) Negative (Negative) mg/dL Urine Ketones Negative (Negative) mg/dL Urine Blood Trace H (Negative) Urine Nitrite Negative (Negative) Ur Leukocyte Esterase Negative (Negative) Urine RBC 0-2 (0-2) /HPF Urine WBC 0-5 (0-5) /HPF Ur Squamous Epith Cells 0-2 (0-2) /HPF Urine Bacteria Trace (None Seen) Hyaline Casts 0-2 (0-2) /LPF Radiology Impression Discussion of test interpretation with radiology: I have reviewed the radiologist's reading. Radiologist Impression: Please see the discussion above External Record Review External record reviewed: Outpatient record, Prior outpatient labs and Prior outpatient radiology Critical Care Time Critical Care Time Critical Care Time: Yes Total Critical Care Time: 30 Attestation: I personally attest to this time spent taking care of the patient. Discharge Plan Discharge Clinical Impression: Gastroenteritis Patient Disposition: Home, Self-Care Instructions: Gastroenteritis (ED) Additional Instructions: 1. Resume all home medications as prescribed. 2. Please utilize the medication to control your nausea until you begin to feel better, drink plenty of fluids especially water. 3. Please follow-up with your primary care doctor in the next 1-2 days. Return to the ER for any worsening symptoms. Prescriptions: New ondansetron 4 mg tablet,disintegrating 4 mg PO Q8H PRN (Reason: nausea and vomiting) 4 Days Qty: 10 0RF No Action albuterol sulfate [ProAir HFA] 90 mcg/actuation HFA aerosol inhaler 2 puff inhalation Q4H Qty: 8.5 0RF loratadine 10 mg tablet 10 mg PO DAILY 30 Days Qty: 30 6RF fluticasone propionate [Flonase Allergy Relief] 50 mcg/actuation spray,suspension 2 spray intranasal BID 30 Days Qty: 16 3RF Rx Instructions: administer into each nostril levothyroxine 175 mcg tablet 175 mcg PO QAM 90 Days Qty: 90 0RF budesonide-formoterol [Symbicort] 160-4.5 mcg/actuation HFA aerosol inhaler 2 puff inhalation BID Qty: 10.2 0RF bupropion HCl [Wellbutrin SR] 150 mg tablet sustained-release 12 hr 150 mg PO QAM Qty: 90 0RF morphine 15 mg tablet 15 mg PO TID PRN (Reason: pain) Qty: 10 0RF Rx Instructions: The patient may ask for partial fill; Partial Fill upon patient request. lidocaine [Lidoderm] 5 % adhesive patch,medicated 1 patch topical DAILY Qty: 15 0RF Rx Instructions: leave on most painful area for up to 12 hrs naproxen 500 mg tablet 500 mg PO Q8-12H PRN (Reason: pain (scale score 4-6)) Qty: 14 0RF cyclobenzaprine 5 mg tablet 5 mg PO BEDTIME PRN (Reason: muscle spasm) Qty: 7 0RF Xolair 150 mg recon soln 150 mg subcut Q4W naproxen 500 mg tablet 500 mg PO BID PRN (Reason: pain) 30 Days Qty: 60 0RF lidocaine 5 % adhesive patch,medicated 1 patch topical DAILY 30 Days Qty: 30 0RF Rx Instructions: leave on most painful area for up to 12 hrs montelukast 10 mg tablet 10 mg PO DAILY Qty: 90 0RF meclizine 25 mg tablet 25 mg PO TID PRN (Reason: dizziness) 30 Days Qty: 90 0RF ipratropium-albuterol 0.5 mg-3 mg(2.5 mg base)/3 mL solution for nebulization 3 ml inhalation Q4-6H PRN (Reason: wheezing) 30 Days Qty: 270 6RF famotidine 20 mg tablet 40 mg PO DAILY Referrals: Thee Tay MD [Primary Care Provider] - Stand Alone Forms: Work/School Release Interventions: ED Discharge Assessment Last Done: 04/29/23 02:08 Discharge Date/Time: 04/29/23 02:09
[2023-04-28 15:42] LABS: MANUAL DIFF FLAG NO
[2023-04-28 15:44] LABS: Appearance Urine Clear; Color Urine Yellow; Glucose Urine UA Negative (Negative); Leukocyte Esterase Urine Negative (Negative); Nitrite Urine Negative (Negative); PH 5.5 (5.0-9.0); UMIC TRIGGER UACC YES; Urine Blood Trace (Negative); Urine Ketones Negative (Negative); Urine Protein Negative (Neg-Trace)
[2023-04-28 15:45] LABS: Basophils Percent Auto 0.5 % (0-2); Eosinophils Absolute Auto 0.1 X10*3/uL (0.0-0.4); Eosinophils Percent Auto 2.3 % (0-4); Hematocrit 40.7 % (37.0-47.0); Hemoglobin 13.8 g/dl (12.0-16.0); Imm Gran Abs Auto 0.01 X10*3/uL (0.00-0.03); Imm Gran Pct Auto 0.2 % (0.0-0.4); Lymphocytes Absolute Auto 1.5 X10*3/uL (1.2-4.9); Lymphocytes Percent Auto 24.5 % (20-40); Mean Corpuscular HGB Conc 33.9 g/dl (31.0-35.0); Mean Corpuscular Hemoglobin 26.6 pg (27.0-33.0); Mean Corpuscular Volume 78.4 fL (80.0-98.0); Mean Platelet Volume 10.3 fL (9.4-12.3); Monocytes Absolute Auto 0.5 X10*3/uL (0.1-1.2); Monocytes Percent Auto 7.6 % (2-11); Neutrophils Absolute Auto 3.9 x10*3/uL (2.0-8.3); Neutrophils Percent Auto 64.9 % (45-73); Platelet Count 205 X10*3/uL (160-400); Red Blood Count 5.19 X10*6/uL (4.20-5.50); Red Cell Distribution Width 13.3 % (11.0-16.0); White Blood Count 6.1 X10*3/uL (4.8-10.8)
[2023-04-28 15:49] LABS: Bacteria Urine Trace (None Seen); Hyaline Casts Urine 0-2 /LPF (0-2); RBC Urine 0-2 /HPF (0-2); Squamous Epithelial Cell Urine 0-2 /HPF (0-2); WBC Urine 0-5 /HPF (0-5)
[2023-04-28 15:57] LABS: Alanine Aminotransferase 16 U/L (0-31); Albumin Level 3.9 g/dL (3.5-5.0); Alkaline Phosphatase 126 U/L (39-117); Anion Gap 13 (12-20); Aspartate Amino Transferase 19 U/L (5-31); Bilirubin Direct 0.1 mg/dL (0.0-0.5); Bilirubin Total 0.3 mg/dL (0.0-1.0); Blood Urea Nitrogen 9 mg/dL (9-16); Calcium 9.2 mg/dL (8.4-10.2); Carbon Dioxide 20 mmol/L (22-29); Chloride 110 mmol/L (96-108); Creatinine Clr Calc Pharmacy 127.2; Estimated Glomerular Filt Rate > 60; Glucose Random 99 mg/dL (60-115); Lipase 13 U/L (8-78); Potassium 3.7 mmol/L (3.3-5.1); Sodium 139 mmol/L (135-145); Total Protein 6.5 g/dL (6.5-8.0)
[2023-04-29] MEDS: Ondansetron ODT 4 MG TAB.RAPDIS TRANSLINGU (02:04)
--- NOTE | 2023-04-29 02:07 | PC.NURSE ---
This Rn only reviewed discharge instruction with pt, pt verbalized understanding. Medicated per mar, pt a&O, no sob or chest pain upon discharge, no sign of distress.
== END 2023-04-29 02:09 | disposition home or self-care (01) ==
PROVIDERS: Physician Assistant Medical; Emergency Provider Student in an Organized Health Care Education/Training Program; PCP Internal Medicine
DX: K52.9 Noninfective gastroenteritis and colitis, unspecified (principal); R11.2 Nausea with vomiting, unspecified; E03.9 Hypothyroidism, unspecified; R10.32 Left lower quadrant pain; R35.0 Frequency of micturition
CPT/HCPCS: 36415; 74176; 80048; 80076; 81001; 83690; 85025; 99282; 99284

== ENCOUNTER 2023-05-15 19:49 | Emergency (ER) | payer OTHER, SELFPAY ==
--- NOTE | ~2023-05-15 | XR_ITS ---
EXAMINATION: XR CHEST CLINICAL INFORMATION: Cough and fever since Thursday. COMPARISON: Chest 03/08/2023. TECHNIQUE: 2 views of the chest were obtained. FINDINGS: No significant abnormality is noted involving the heart, lungs, mediastinum, bony thorax or soft tissues. XR/XR chest 2V IMPRESSION: Unremarkable chest examination.
[2023-05-15 20:36] VITALS: BP 111/67; PULSE 100; RESP 18; TEMP 37.2; O2SAT 96; BMI 35.1
--- NOTE | 2023-05-15 20:37 | ED.URI ---
HPI - URI/Sore Throat General Chief Complaint: Upper Respiratory Symptoms Stated Complaint: Flu like symptoms Time Seen by Provider: 05/16/23 00:20 Related Data Home Medications Medication Instructions Recorded Confirmed famotidine 20 mg tablet 40 mg PO DAILY 10/16/22 05/28/23 omalizumab 150 mg subcutaneous 150 mg subcut Q4W 10/29/22 05/28/23 solution (Xolair) Previous Rx's Medication Instructions Recorded ProAir HFA 90 mcg/actuation 2 puff inhalation Q4H #8.5 grams 02/19/22 aerosol inhaler (albuterol sulfate) ipratropium 0.5 mg-albuterol 3 mg 3 ml inhalation Q4-6H PRN wheezing 10/14/22 (2.5 mg base)/3 mL nebulization 30 days #270 mL soln montelukast 10 mg tablet 10 mg PO DAILY #90 tabs 03/03/23 fluticasone propionate 50 2 spray intranasal BID 30 days #16 03/04/23 mcg/actuation nasal grams spray,suspension (Flonase Allergy Relief) levothyroxine 175 mcg tablet 175 mcg PO QAM 90 days #90 tabs 03/04/23 meclizine 25 mg tablet 25 mg PO TID PRN dizziness 30 days 04/03/23 #90 tabs lidocaine 5 % topical patch 1 patch topical DAILY #15 ea 04/11/23 (Lidoderm) naproxen 500 mg tablet 500 mg PO Q8-12H PRN pain (scale 04/11/23 score 4-6) #14 tabs bupropion HCl 150 mg tablet,12 hr 150 mg PO QAM #90 tabs 04/25/23 sustained-release (Wellbutrin SR) fluticasone propionate 230 2 puff inhalation Q12H 30 days #12 05/13/23 mcg-salmeterol 21 mcg/actuation grams HFA inhaler (Advair HFA) loratadine 10 mg tablet 10 mg PO DAILY 30 days #30 tabs 05/19/23 benzonatate 200 mg capsule 200 mg PO TID PRN cough #30 caps 05/22/23 hydrocodone 5 mg-acetaminophen 325 1 tab PO Q6H PRN pain #10 tabs 06/02/23 mg tablet tramadol 50 mg tablet 50 mg PO Q8H PRN pain 7 days #21 06/19/23 tabs hydrocodone 5 mg-acetaminophen 325 1 tab PO Q8H PRN pain 7 days #21 06/24/23 mg tablet tabs Allergies Allergy/AdvReac Type Severity Reaction Status Date / Time niacin Allergy Intermediate skin Verified 06/19/23 10:34 [Niaspan Extended-Release] blisters tramadol Allergy Intermediate seizures Verified 06/19/23 10:34 barley [BARLEY] Allergy Unknown UNKNOWN Verified 06/19/23 10:34 fluticasone [Advair Diskus] Allergy Unknown Shortness Verified 06/19/23 10:34 of Breath ibuprofen Allergy Unknown Swelling Verified 06/19/23 10:34 naratriptan Allergy Unknown unknown Verified 06/19/23 10:34 Penicillins [PENICILLINS] Allergy Unknown Unknown Verified 06/19/23 10:34 sumatriptan Allergy Unknown unknown Verified 06/19/23 10:34 trazodone [TRAZODONE] Allergy Unknown UNKNOWN Verified 06/19/23 10:34 equate cough drops sugar free Allergy Mild Unknown Uncoded 06/02/23 15:46 PMFSH Past Medical History Onset Date is defined in the Problem List Problems that require an onset date and time if occurred within 24 hrs of arrival to the ED Aortic Dissection and Rupture; Neurologic impairment; Cardiopulmonary Arrest; Endotracheal Intubation; Insertion or Replacement of Mechanical Circulatory Assist Device Medical History PFO (patent foramen ovale) History of transesophageal echocardiography (LAN) Colitis Abnormal angiogram of head COVID-19 Asthma Thyroid disease GERD (gastroesophageal reflux disease) Anemia Aneurysm Surgical History History of surgery of uterus H/O endoscopy History of H/O brain surgery History of colonoscopy Family History Family History Father Diabetes Arthritis Diverticulitis Leukemia Mental health disorder Lung cancer Mother Anemia Arthritis Colon polyps Myocardial infarction Brother Crohn's disease Testicular cancer Brother Cancer Paternal Grandfather Leukemia Other Substance use disorder Social History Social History (Updated 06/19/23 @ 10:35 by Lauren Cowart) Household Members: Significant Other Housing: House Are you a primary respiratory care program director to a significant other at home: No Do you presently have visiting nurse or other home services: No Alcohol intake: former Patient Tobacco Use Status: Former Tobacco user Tobacco use type: Cigarette e-Cigarette/Vaping Use: Never Used Advance Directives Date on File: 04/09/21 service: No 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al status: employed 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: [employer]/ right hand dominant Cognitive needs: No Hearing needs: No Vision needs: Yes Physical Exam Vital Signs: Vital Signs: Last Vital Signs Temp 98.6 F 05/16/23 00:05 Pulse 95 05/16/23 00:05 Resp 19 05/16/23 00:05 BP 122/65 05/16/23 00:05 Pulse Ox 97 05/16/23 00:05 O2 Del Method Room Air 05/16/23 00:05 BMI result Body Mass Index 35.1 Course Course Course Narrative: RMDarnell 20:37PM - 53yoF presenting with URI complaints which include fevers, chills, fatigue, malaise, headaches, nasal congestion/rhinorrhea, chest congestion, productive cough that all started Thursday. Reports that she was referred here by PCP for COVID and flu testing. She reports her temperature was 100.6 degrees earlier today and she took some Motrin. Plan: COVID, flu and chest x-ray ordered at this time. Patient will be sent back to the waiting room to be evaluated in EM. Medical Decision Making Lab Data Labs: Lab Results 05/15/23 Range/Units 20:43 COVID-19 (BESS) Positive A (Negative) COVID-19 Clin Com See Note Influenza Type A (GABBY) Negative (Negative) Influenza Type B (GABBY) Negative (Negative) Influenza A & B Note See Note Discharge Plan Discharge Clinical Impression: COVID Patient Disposition: Home, Self-Care Instructions: COVID-19 (Coronavirus Disease 2019) (ED) Prescriptions: No Action albuterol sulfate [ProAir HFA] 90 mcg/actuation HFA aerosol inhaler 2 puff inhalation Q4H Qty: 8.5 0RF fluticasone propionate [Flonase Allergy Relief] 50 mcg/actuation spray,suspension 2 spray intranasal BID 30 Days Qty: 16 3RF Rx Instructions: administer into each nostril levothyroxine 175 mcg tablet 175 mcg PO QAM 90 Days Qty: 90 0RF bupropion HCl [Wellbutrin SR] 150 mg tablet sustained-release 12 hr 150 mg PO QAM Qty: 90 0RF fluticasone propion-salmeterol [Advair HFA] 230-21 mcg/actuation HFA aerosol inhaler 2 puff inhalation Q12H 30 Days Qty: 12 6RF loratadine 10 mg tablet 10 mg PO DAILY 30 Days Qty: 30 6RF hydrocodone-acetaminophen 5-325 mg tablet 1 tab PO Q8H PRN (Reason: pain) 7 Days Qty: 21 0RF Rx Instructions: Partial Fill upon patient request. lidocaine [Lidoderm] 5 % adhesive patch,medicated 1 patch topical DAILY Qty: 15 0RF Rx Instructions: leave on most painful area for up to 12 hrs naproxen 500 mg tablet 500 mg PO Q8-12H PRN (Reason: pain (scale score 4-6)) Qty: 14 0RF Xolair 150 mg recon soln 150 mg subcut Q4W montelukast 10 mg tablet 10 mg PO DAILY Qty: 90 0RF meclizine 25 mg tablet 25 mg PO TID PRN (Reason: dizziness) 30 Days Qty: 90 0RF benzonatate 200 mg capsule 200 mg PO TID PRN (Reason: cough) Qty: 30 0RF hydrocodone-acetaminophen 5-325 mg tablet 1 tab PO Q6H PRN (Reason: pain) Qty: 10 0RF Rx Instructions: Partial Fill upon patient request. ipratropium-albuterol 0.5 mg-3 mg(2.5 mg base)/3 mL solution for nebulization 3 ml inhalation Q4-6H PRN (Reason: wheezing) 30 Days Qty: 270 6RF famotidine 20 mg tablet 40 mg PO DAILY tramadol 50 mg tablet 50 mg PO Q8H PRN (Reason: pain) 7 Days Qty: 21 0RF Referrals: Physician,Unknown J [Primary Care Provider] - 05/20/23 Stand Alone Forms: Work/School Release Interventions: ED Discharge Assessment Last Done: 05/16/23 00:45 Discharge Date/Time: 05/16/23 00:45
[2023-05-15 20:59] LABS: COVID-19 Test Positive (Negative); IDNOW Serial# 08D9AD1C
[2023-05-15 21:21] LABS: IDNOW Serial# 152EDE1D; Influenza A Negative (Negative); Influenza B2 Negative (Negative)
[2023-05-16 00:05] VITALS: BP 122/65; PULSE 95; RESP 19; TEMP 37; O2SAT 97
--- NOTE | 2023-05-16 00:32 | ED_ITS ---
HPI - URI/Sore Throat General Chief Complaint: Upper Respiratory Symptoms Stated Complaint: Flu like symptoms Time Seen by Provider: 05/16/23 00:20 History of Present Illness HPI Narrative: Patient is a 53-year-old female presents today with coughing congestion upper respiratory symptoms that has been ongoing since Thursday. Positive generalized malaise weakness. Patient from home. Noted a fever today. Subjective. Came to the ED for help. Patient is vaccinated for COVID Related Data Home Medications Medication Instructions Recorded Confirmed famotidine 20 mg tablet 40 mg PO DAILY 10/16/22 04/03/23 omalizumab 150 mg subcutaneous 150 mg subcut Q4W 10/29/22 04/03/23 solution (Xolair) Previous Rx's Medication Instructions Recorded ProAir HFA 90 mcg/actuation 2 puff inhalation Q4H #8.5 grams 02/19/22 aerosol inhaler (albuterol sulfate) ipratropium 0.5 mg-albuterol 3 mg 3 ml inhalation Q4-6H PRN wheezing 10/14/22 (2.5 mg base)/3 mL nebulization 30 days #270 mL soln loratadine 10 mg tablet 10 mg PO DAILY 30 days #30 tabs 11/10/22 lidocaine 5 % topical patch 1 patch topical DAILY 30 days #30 12/03/22 ea naproxen 500 mg tablet 500 mg PO BID PRN pain 30 days #60 12/03/22 tabs montelukast 10 mg tablet 10 mg PO DAILY #90 tabs 03/03/23 fluticasone propionate 50 2 spray intranasal BID 30 days #16 03/04/23 mcg/actuation nasal grams spray,suspension (Flonase Allergy Relief) levothyroxine 175 mcg tablet 175 mcg PO QAM 90 days #90 tabs 03/04/23 morphine 15 mg immediate release 15 mg PO TID PRN pain #10 tabs 03/08/23 tablet meclizine 25 mg tablet 25 mg PO TID PRN dizziness 30 days 04/03/23 #90 tabs cyclobenzaprine 5 mg tablet 5 mg PO BEDTIME PRN muscle spasm 04/11/23 #7 tabs lidocaine 5 % topical patch 1 patch topical DAILY #15 ea 04/11/23 (Lidoderm) naproxen 500 mg tablet 500 mg PO Q8-12H PRN pain (scale 04/11/23 score 4-6) #14 tabs bupropion HCl 150 mg tablet,12 hr 150 mg PO QAM #90 tabs 04/25/23 sustained-release (Wellbutrin SR) ondansetron 4 mg disintegrating 4 mg PO Q8H PRN nausea and 04/29/23 tablet vomiting 4 days #10 tabs fluticasone propionate 230 2 puff inhalation Q12H 30 days #12 05/13/23 mcg-salmeterol 21 mcg/actuation grams HFA inhaler (Advair HFA) Allergies Allergy/AdvReac Type Severity Reaction Status Date / Time niacin Allergy Intermediate skin Verified 05/15/23 20:36 [Niaspan Extended-Release] blisters tramadol Allergy Intermediate seizures Verified 05/15/23 20:36 barley [BARLEY] Allergy Unknown UNKNOWN Verified 05/15/23 20:36 fluticasone [Advair Diskus] Allergy Unknown Shortness Verified 05/15/23 20:36 of Breath ibuprofen Allergy Unknown Swelling Verified 05/15/23 20:36 naratriptan Allergy Unknown unknown Verified 05/15/23 20:36 Penicillins [PENICILLINS] Allergy Unknown Unknown Verified 05/15/23 20:36 sumatriptan Allergy Unknown unknown Verified 05/15/23 20:36 trazodone [TRAZODONE] Allergy Unknown UNKNOWN Verified 05/15/23 20:36 equate cough drops sugar free Allergy Mild Unknown Uncoded 04/28/23 14:52 Review of Systems Review of Systems: Positive coughing congestion upper respiratory symptoms Yes all other systems are reviewed and are negative PMFSH Past Medical History Onset Date is defined in the Problem List Problems that require an onset date and time if occurred within 24 hrs of arrival to the ED Aortic Dissection and Rupture; Neurologic impairment; Cardiopulmonary Arrest; Endotracheal Intubation; Insertion or Replacement of Mechanical Circulatory Assist Device Medical History PFO (patent foramen ovale) History of transesophageal echocardiography (LAN) Colitis Abnormal angiogram of head COVID-19 Asthma Thyroid disease GERD (gastroesophageal reflux disease) Anemia Aneurysm Surgical History History of surgery of uterus H/O endoscopy History of H/O brain surgery History of colonoscopy Family History Family History Father Diabetes Arthritis Diverticulitis Leukemia Mental health disorder Lung cancer Mother Anemia Arthritis Colon polyps Myocardial infarction Brother Crohn's disease Testicular cancer Brother Cancer Paternal Grandfather Leukemia Other Substance use disorder Social History Social History Household Members: Significant Other Housing: House Are you a primary pet care technician to a significant other at home: No Do you presently have visiting nurse or other home services: No Alcohol intake: former Patient Tobacco Use Status: Former Tobacco user Tobacco use type: Cigarette e-Cigarette/Vaping Use: Never Used Advance Directives: Yes Advance Directives on File: Yes Advance Directives Date on File: 04/09/21 service: No 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al status: employed Cognitive needs: No Hearing needs: No Vision needs: Yes Physical Exam Vital Signs: Vital Signs: Last Vital Signs Temp 98.6 F 05/16/23 00:05 Pulse 95 05/16/23 00:05 Resp 19 05/16/23 00:05 BP 122/65 05/16/23 00:05 Pulse Ox 97 05/16/23 00:05 O2 Del Method Room Air 05/16/23 00:05 BMI result Body Mass Index 35.1 Appearance: Alert. Oriented X3. No acute distress. Eyes: Pupils equal, round and reactive to light. ENT: Pharynx normal. Neck: Normal inspection. Neck supple. No lymph nodes noted. No crepitus CVS: Normal heart rate and rhythm. Pulses normal. Normal S1 and S2 Respiratory: No respiratory distress. Breath sounds normal. No Wheezing. No rales Abdomen: Soft and nontender. No rigidity. No distention. good BS x4 Skin: Skin warm and dry. Normal skin color. Normal skin turgor. Extremities: No lower extremity edema. Neurovascular intact to all extremities. No Lacerations. No Rash Neuro: Oriented X 3. No motor deficit. No sensory deficit. Moving all extermities. No slurred speech Medical Decision Making Medical Decision Making MDM Narrative: Patient vaccinated. O2 sat is 98% on room air COVID came back positive likely the cause of patient's coughing congestion upper respiratory symptoms. My interpretation patient's chest x-ray was grossly negative. She is currently in stable condition. Will discharge home. Differential Diagnosis Differential Diagnoses: The differential diagnosis associated with the presentation includes Upper respiratory infection Flu COVID RSV Pneumonia Lab Data MDM Lab Attestation statement: I reviewed the patient's lab results. Labs: Lab Results 05/15/23 Range/Units 20:43 COVID-19 (BESS) Positive A (Negative) COVID-19 Clin Com See Note Influenza Type A (GABBY) Negative (Negative) Influenza Type B (GABBY) Negative (Negative) Influenza A & B Note See Note Radiology Impression Discussion of test interpretation with radiology: I have reviewed the radiologist's reading. Prescription Management I considered prescription management with: Pain Medication and Antiviral Had a long discussion with patient did not want an antiviral for now. Patient is vaccinated otherwise in good health Discharge Plan Discharge Clinical Impression: COVID Patient Disposition: Home, Self-Care Instructions: COVID-19 (Coronavirus Disease 2019) (ED) Prescriptions: No Action albuterol sulfate [ProAir HFA] 90 mcg/actuation HFA aerosol inhaler 2 puff inhalation Q4H Qty: 8.5 0RF loratadine 10 mg tablet 10 mg PO DAILY 30 Days Qty: 30 6RF fluticasone propionate [Flonase Allergy Relief] 50 mcg/actuation spray,suspension 2 spray intranasal BID 30 Days Qty: 16 3RF Rx Instructions: administer into each nostril levothyroxine 175 mcg tablet 175 mcg PO QAM 90 Days Qty: 90 0RF bupropion HCl [Wellbutrin SR] 150 mg tablet sustained-release 12 hr 150 mg PO QAM Qty: 90 0RF fluticasone propion-salmeterol [Advair HFA] 230-21 mcg/actuation HFA aerosol inhaler 2 puff inhalation Q12H 30 Days Qty: 12 6RF morphine 15 mg tablet 15 mg PO TID PRN (Reason: pain) Qty: 10 0RF Rx Instructions: The patient may ask for partial fill; Partial Fill upon patient request. lidocaine [Lidoderm] 5 % adhesive patch,medicated 1 patch topical DAILY Qty: 15 0RF Rx Instructions: leave on most painful area for up to 12 hrs naproxen 500 mg tablet 500 mg PO Q8-12H PRN (Reason: pain (scale score 4-6)) Qty: 14 0RF cyclobenzaprine 5 mg tablet 5 mg PO BEDTIME PRN (Reason: muscle spasm) Qty: 7 0RF ondansetron 4 mg tablet,disintegrating 4 mg PO Q8H PRN (Reason: nausea and vomiting) 4 Days Qty: 10 0RF Xolair 150 mg recon soln 150 mg subcut Q4W naproxen 500 mg tablet 500 mg PO BID PRN (Reason: pain) 30 Days Qty: 60 0RF lidocaine 5 % adhesive patch,medicated 1 patch topical DAILY 30 Days Qty: 30 0RF Rx Instructions: leave on most painful area for up to 12 hrs montelukast 10 mg tablet 10 mg PO DAILY Qty: 90 0RF meclizine 25 mg tablet 25 mg PO TID PRN (Reason: dizziness) 30 Days Qty: 90 0RF ipratropium-albuterol 0.5 mg-3 mg(2.5 mg base)/3 mL solution for nebulization 3 ml inhalation Q4-6H PRN (Reason: wheezing) 30 Days Qty: 270 6RF famotidine 20 mg tablet 40 mg PO DAILY Referrals: Physician,Unknown J [Primary Care Provider] - 05/20/23 Stand Alone Forms: Work/School Release
== END 2023-05-16 00:45 | disposition home or self-care (01) ==
PROVIDERS: Physician Assistant Medical; Emergency Provider Emergency Medicine Emergency Medical Services
DX: U07.1 COVID-19 (principal); R05.9 Cough, unspecified
CPT/HCPCS: 71046; 87502; 87635; 99283

== ENCOUNTER 2023-05-22 10:39 | Outpatient (AMB) | payer OTHER, SELFPAY ==
--- NOTE | 2023-05-22 10:48 | AM.OFFWIN_ITS ---
Intake Vital Signs 05/22/23 10:58 Height 5 ft 5 in Weight 210 lb BMI 34.9 BP 100/68 Blood Pressure Location Lt brachial Position Sitting Pulse 89 Pulse Source Pulse Oximeter Temp 97.9 F Temp Source Oral Pulse Oximetry (%) 97 Oxygen Delivery Method Room Air Intake Visit Reasons: EP sneeze cough chest pain [id number] Intake Note: Pt is here today c/o sneezing, chest discomfort due to coughing x7days Patient Tobacco Use Status: Former Tobacco user Allergies niacin [Niaspan Extended-Release] Allergy (Intermediate, Verified 05/22/23 10:51) skin blisters tramadol Allergy (Intermediate, Verified 05/22/23 10:51) seizures barley [BARLEY] Allergy (Unknown, Verified 05/22/23 10:51) UNKNOWN fluticasone [Advair Diskus] Allergy (Unknown, Verified 05/22/23 10:51) Shortness of Breath ibuprofen Allergy (Unknown, Verified 05/22/23 10:51) Swelling naratriptan Allergy (Unknown, Verified 05/22/23 10:51) unknown Penicillins [PENICILLINS] Allergy (Unknown, Verified 05/22/23 10:51) Unknown sumatriptan Allergy (Unknown, Verified 05/22/23 10:51) unknown trazodone [TRAZODONE] Allergy (Unknown, Verified 05/22/23 10:51) UNKNOWN equate cough drops sugar free Allergy (Mild, Uncoded 05/22/23 10:51) Unknown Do you need a note to return to daycare/school/sports/work: No HPI HPI Comments History of Present Illness0 Details This is a 53-year-old female who presented to the walk-in clinic requesting a repeat COVID test. Patient states she tested positive for COVID-19 on 05/16/2023. She is requesting a repeat COVID test in order to return to work. She reports persistent nasal/sinus congestion with rhinorrhea, mild headaches, postnasal drip, dry cough, and low-grade fevers (her last fever was on 05/20/2023). The patient also reports some mild right-sided chest pain that occurs with coughing. She denies any radiation of the chest pain to either arm and she denies any associated shortness of breath or nausea/vomiting or diaphoresis/clamminess. FORMERLY [facility] Medical History PFO (patent foramen ovale) History of transesophageal echocardiography (LAN) Colitis Abnormal angiogram of head COVID-19 Asthma Thyroid disease GERD (gastroesophageal reflux disease) Anemia Aneurysm Surgical History History of surgery of uterus H/O endoscopy History of H/O brain surgery History of colonoscopy Family History Father Diabetes Arthritis Diverticulitis Leukemia Mental health disorder Lung cancer Mother Anemia Arthritis Colon polyps Myocardial infarction Brother Crohn's disease Testicular cancer Brother Cancer Paternal Grandfather Leukemia Other Substance use disorder Social History Household Members: Significant Other Housing: House Are you a primary post acute care registered nurse to a significant other at home: No Do you presently have visiting nurse or other home services: No Alcohol intake: former Patient Tobacco Use Status: Former Tobacco user Tobacco use type: Cigarette e-Cigarette/Vaping Use: Never Used Advance Directives Date on File: 04/09/21 service: No 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al status: employed Cognitive needs: No Hearing needs: No Vision needs: Yes Review of Systems Const All systems reviewed & are unremarkable except as noted in HPI and below Reports no additional complaints Eyes Reports no additional complaints ENT Reports no additional complaints Card Reports no additional complaints Resp Reports no additional complaints GI Reports no additional complaints Reports no additional complaints Musc Reports no additional complaints Skin/Breast Reports system reviewed and no additional complaints, except as documented Neuro Reports no additional complaints Psych Reports no additional complaints Endo Reports no additional complaints Denny/Lymph Reports no additional complaints Aller/Immun Reports no additional complaints Physical Exam Const Other: Vital signs reviewed. Constitutional: Non-toxic appearing. No acute distress. Well-developed and well-nourished. HEENT: Normocephalic and atraumatic. Skin: Warm and dry. No rashes or lesions noted. Neck: Full and painless range of motion. No cervical lymphadenopathy. Cardio: Regular rate and rhythm. No murmurs, gallops, or rubs. No lower extremity edema. No JVD. There is reproducible tenderness to palpation of the right lower chest wall. Pulmonary: No respiratory distress. No accessory muscle usage. Clear to auscultation bilaterally without wheezing, crackles, or rhonchi. Gastrointestinal: Soft, nontender, and nondistended in all 4 quadrants. Normoactive bowel sounds in all 4 quadrants. Musculoskeletal: Normal range of motion in joints throughout the body. No deformity or other signs of injury. Neuro: Alert and oriented x4. Cranial nerves 2-12 grossly intact. No focal deficits appreciated. Psych: Normal mood and affect. Assessment & Plan Assessment & Plan (1) COVID: Code(s): U07.1 - COVID-19 Plan This is a 53-year-old female was diagnosed with COVID-19 on 05/16/2023 who presented to the walk-in clinic requesting a repeat COVID test to return to work. Patient reports persistent symptoms such as nasal/sinus congestion, rhinorrhea, sore throat, postnasal drip, and dry cough. On physical examination, her lungs are clear to auscultation bilaterally and her vital signs are stable and her physical exam is benign. Repeat COVID/flu/RSV testing was sent. Patient was given a prescription for p.o. benzonatate 200 mg 3 times daily as needed for cough. Recommended symptomatic management including rest, increased fluids, advil/tylenol for pain/fever, and over the counter throat lozenges/decongestants. Patient advised to follow up here or go to the emergency room for worsening/persistent symptoms. Patient verbalized understanding and is agreeable with the plan. Additionally, patient states she is not able to return to work until she has a negative COVID test. I explained to the patient that her COVID test can remain persistently positive for up to 3 months and as long as she has isolated for 10 days with improvement in her symptoms and she has been fever free for 24 hours (which she has at this point), there is no reason she should need to stay out of work. She was given a return to work note for Friday May 26, 2023 as she tested positive on May 16, 2023 and she will complete her 10 day isolation at this time. Orders: Orders SARS-CoV2/FLU/RSV Today R09.89 - Other specified symptoms and signs involving the circulatory and respiratory systems Medications: New benzonatate 200 mg PO TID PRN 30 caps 0RF cough Coding Level of Care Code Est Pt Level 3 (94306) Diagnoses COVID U07.1
[2023-05-22 10:58] VITALS: BP 100/68; PULSE 89; TEMP 36.6; O2SAT 97; BMI 34.9
== END 2023-05-22 11:18 | disposition home or self-care (01) ==
PROVIDERS: Visit Provider Physician Assistant Medical
DX: U07.1 COVID-19 (principal)
CPT/HCPCS: 99213

== ENCOUNTER 2023-05-22 13:47 | Outpatient (REF) | payer OTHER, SELFPAY ==
[2023-05-22 15:01] LABS: Influenza A PCR NEGATIVE (Negative); Influenza B PCR NEGATIVE (Negative); Resp Syncy Virus RNA Qual PCR NEGATIVE (Negative); SARS COV2 PCR INHOUSE POSITIVE (Negative)
== END 2023-05-22 13:48 | disposition home or self-care (01) ==
LOC: HO.LNP 13:47
PROVIDERS: Visit Provider Physician Assistant Medical
DX: R09.89 Other specified symptoms and signs involving the circulatory and respiratory systems (principal); Z11.52 Encounter for screening for COVID-19
CPT/HCPCS: 0241U

== ENCOUNTER 2023-05-28 07:57 | Outpatient (AMB) | payer OTHER, SELFPAY ==
--- NOTE | 2023-05-28 08:00 | A.OFFPC_ITS ---
Intake Visit Reasons: [facility] ~[phone] Allergies niacin [Niaspan Extended-Release] Allergy (Intermediate, Verified 05/28/23 08:00) skin blisters tramadol Allergy (Intermediate, Verified 05/28/23 08:00) seizures barley [BARLEY] Allergy (Unknown, Verified 05/28/23 08:00) UNKNOWN fluticasone [Advair Diskus] Allergy (Unknown, Verified 05/28/23 08:00) Shortness of Breath ibuprofen Allergy (Unknown, Verified 05/28/23 08:00) Swelling naratriptan Allergy (Unknown, Verified 05/28/23 08:00) unknown Penicillins [PENICILLINS] Allergy (Unknown, Verified 05/28/23 08:00) Unknown sumatriptan Allergy (Unknown, Verified 05/28/23 08:00) unknown trazodone [TRAZODONE] Allergy (Unknown, Verified 05/28/23 08:00) UNKNOWN equate cough drops sugar free Allergy (Mild, Uncoded 05/22/23 10:51) Unknown Medication List - Last Reconciled 05/28/23 by Thee Tay MD benzonatate 200 mg PO TID PRN bupropion HCl (Wellbutrin SR) 150 mg PO QAM famotidine 40 mg PO DAILY fluticasone propion-salmeterol 230-21 mcg/actuation (Advair HFA) 2 puffs inhalation Q12H 30 days fluticasone propionate 50 mcg/actuation (Flonase Allergy Relief) 2 sprays intranasal BID 30 days ipratropium-albuterol 0.5 mg-3 mg(2.5 mg base)/3 mL 3 mL inhalation Q4-6H PRN 30 days levothyroxine 175 mcg PO QAM 90 days lidocaine 5% (Lidoderm) 1 patch topical DAILY loratadine 10 mg PO DAILY 30 days meclizine 25 mg PO TID PRN 30 days montelukast 10 mg PO DAILY naproxen 500 mg PO Q8-12H PRN omalizumab (Xolair) 150 mg subcut Q4W ProAir HFA 90 mcg/actuation (albuterol sulfate) 2 puffs inhalation Q4H NS Tobacco use date assessed: 05/28/23 Dental Screening Dental Screen Date: 05/28/23 Did you have a dental visit in the last 12 months?: No Did you have a dental problem in the last 6 months where you did not have access to dental care?: No Was dental information given to patient?: No HPI [facility] ~[phone] HPI Details Patient is a 53-year-old female this is a tele medicine visit Patient had COVID 19 infection leading to bronchitis She started getting chest congestion and shortness of breath Patient went to emergency room on 05/16/2023 for evaluation where she was diagnosed with COVID-19 infection Patient was discharged after evaluation, she declined antiviral treatment She rested and when she felt better she went back to work on 05/26/2023 Patient need [facility] paperwork filled, which I did for her She said she still coughing but she is able to work now. [facility] Medical History PFO (patent foramen ovale) History of transesophageal echocardiography (LAN) Colitis Abnormal angiogram of head COVID-19 Asthma Thyroid disease GERD (gastroesophageal reflux disease) Anemia Aneurysm Surgical History History of surgery of uterus H/O endoscopy History of H/O brain surgery History of colonoscopy Family History Father Diabetes Arthritis Diverticulitis Leukemia Mental health disorder Lung cancer Mother Anemia Arthritis Colon polyps Myocardial infarction Brother Crohn's disease Testicular cancer Brother Cancer Paternal Grandfather Leukemia Other Substance use disorder Social History Household Members: Significant Other Housing: House Are you a primary home health care physician to a significant other at home: No Do you presently have visiting nurse or other home services: No Alcohol intake: former Patient Tobacco Use Status: Former Tobacco user Tobacco use type: Cigarette e-Cigarette/Vaping Use: Never Used Advance Directives Date on File: 04/09/21 service: No 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al status: employed Cognitive needs: No Hearing needs: No Vision needs: Yes Questionnaire PHQ-9 Over the last 2 weeks, how often have you been bothered by any of the following problems? 1. Little interest or pleasure in doing things: not at all 2. Feeling down, depressed, or hopeless: not at all 3. Trouble falling or staying asleep, or sleeping too much: more than half the days 4. Feeling tired or having little energy: several days 5. Poor appetite or overeating: not at all 6. Feeling bad about yourself - or that you are a failure or have let yourself or your family down: not at all 7. Trouble concentrating on things, such as reading the newspaper or watching television: not at all 8. Moving or speaking so slowly that other people could have noticed. Or the opposite - being so fidgety or restless that you have been moving around a lot more than usual: not at all 9. Thoughts that you would be better off or of hurting yourself in some way: not at all Total score: 3 Depression Screening Interpretation: Negative Depression Screening Done: Yes 85656 - PHQ-9 Billing: Yes Source: Developed by Drs. Masood Arredondo, Lesly Pruitt, Thor Del Cid and colleagues, with an educational phil from [employer]. Thrive Questionnaire Date Thrive assessed: 05/28/23 I am a: Patient What is your living situation today?: I have a steady place to live Within the past 12 months, did the food you bought not last and you didn't have the money to get more?: Never true Within the past 12 months, did you worry whether your food would run out before you got money to buy more?: Never true Do you have trouble paying for medicines?: No Do you have trouble getting transportation to medical appointments?: No Do you have trouble paying your heating and electricity bill?: No Do you have trouble taking care of your child, family member or friend?: No Do you have trouble with day-to-day activities such as bathing, preparing meals, shopping, managing finances, etc.?: No Are you currently unemployed and looking for a job?: No Please select the resources that you would like help with: None Currently or been in a relationship where the following occur: no concerns reported THRIVE Score: 0 AUDIT C Alcohol Use Questionnaire (AUDIT-C) 1. How often do you have a drink containing alcohol?: Never 3. How often do you have six or more drinks on one occasion?: Never Total Score: 0 Score Reviewed/Action Taken: Yes MARKO-7 AMB Questionnaire MARKO-7 Date MARKO - 7 assessed: 05/28/23 Feeling nervous, anxious, or on edge: 1 = Several days Not being able to stop or control worryin = Several days Worrying too much about different things: 0 = Not at all Trouble relaxin = Several days Being so restless that it is hard to sit still: 0 = Not at all Becoming easily annoyed or irritable: 0 = Not at all Feeling afraid as if something awful might happen: 0 = Not at all Total MARKO-7 score (0-4 normal; 5-9 mild; 10-14 moderate; 15-21 severe): 3 Source: Developed by Drs. Masood Arredondo, Lesly Pruitt, Thor Del Cid and colleagues, with an educational phil from [employer]. Review of Systems Const Denies chills and Denies fever(s) ENT Denies epistaxis and Denies nasal discharge Card Denies chest pain Resp Denies hemoptysis GI Denies diarrhea and Denies nausea Skin/Breast Denies rash Neuro Reports no additional complaints Psych Reports no additional complaints Endo Reports no additional complaints Physical exam (Primary Care) Tobacco/Smoking Status: Tobacco use Status Tobacco use date assessed 05/28/23 05/28/23 08:01 Patient Tobacco Use Status Former Tobacco user 05/28/23 08:00 Tobacco use type Cigarette 05/28/23 08:00 e-Cigarette/Vaping Use Never Used 05/28/23 08:00 PHQ-9: PHQ-9 Score PHQ-9: Total score 3 05/28/23 08:14 Depression Screening Interpretation: Negative Thrive Assessment: Date of Thrive Assessment Date Thrive assessed 05/28/23 05/28/23 08:14 Currently or been in a relationship where the following occur: no concerns reported Telehealth Telehealth Location of provider rendering services: practice address Location of patient: address on file Patient Identification confirmed using: Name, : Yes Telehealth method: video (Was attempted) Patient verbally consented to treatment: Yes Patient verbally consented to billing insurance company: Yes Patient informed of any privacy concerns related to visit: Yes Assessment and Plan Assessment & Plan (1) Bronchitis due to COVID-19 virus: Code(s): U07.1 - COVID-19; J40 - Bronchitis, not specified as acute or chronic Plan Patient is a 53-year-old female this is a tele medicine visit Patient had COVID 19 infection leading to bronchitis She started getting chest congestion and shortness of breath Patient went to emergency room on 05/16/2023 for evaluation where she was diagnosed with COVID-19 infection Patient was discharged after evaluation, she declined antiviral treatment She rested and when she felt better she went back to work on 05/26/2023 Patient need FMLA paperwork filled, which I did for her She said she still coughing but she is able to work now. Coding Level of Care Code Est Pt Level 3 (67617) Diagnoses Bronchitis due to COVID-19 virus U07.1; J40 Time Spent (min) 17
== END 2023-05-28 16:04 | disposition home or self-care (01) ==
LOC: HO.HMGC 07:57
PROVIDERS: Visit Provider Internal Medicine
DX: U07.1 COVID-19 (principal); J40 Bronchitis, not specified as acute or chronic
CPT/HCPCS: 99213

== ENCOUNTER 2023-05-28 12:28 | Outpatient (REF) | payer OTHER, SELFPAY | END 2023-05-28 12:29 | disposition home or self-care (01) | LOC: HO.MDS 12:28 | PROVIDERS: Visit Provider Internal Medicine Pulmonary Disease | DX: J45.50 Severe persistent asthma, uncomplicated (principal) | CPT/HCPCS: 96372; J2357 ==

== ENCOUNTER 2023-05-31 19:44 | Emergency (ER) | payer OTHER, SELFPAY ==
--- NOTE | ~2023-05-31 | XR_ITS ---
Examination: XR shoulder LT min 2V, XR knee LT 3V, XR elbow LT min 3V Indication: pain s/p trauma Comparison: No pertinent prior studies are currently available for comparison. Technique: 3 views of the left shoulder, lateral view of the elbow, and 4 views of the left knee obtained. Findings: Left shoulder: Impacted slightly comminuted humeral neck fracture is seen. Humeral head is well-seated in the glenoid fossa. Degenerative changes in the acromioclavicular joint. No acute bony abnormality of the visualized left ribs. Left elbow: Oblique view of the elbow obtained. This limits assessment for elbow joint effusion. I do not appreciate any definitive fracture dislocation of the elbow. Left knee: No significant knee joint effusion. Bones are normal anatomic alignment with no acute fracture or dislocation seen. Mild degenerative changes with loss of joint space in the medial compartment. XR/XR knee LT 3V Impression: 1. Impacted slightly comminuted humeral neck fracture. 2. Oblique view of the elbow limits assessment for elbow joint effusion. I do not appreciate any definitive fracture or dislocation.
--- NOTE | ~2023-05-31 | XR_ITS ---
Examination: XR shoulder LT min 2V, XR knee LT 3V, XR elbow LT min 3V Indication: pain s/p trauma Comparison: No pertinent prior studies are currently available for comparison. Technique: 3 views of the left shoulder, lateral view of the elbow, and 4 views of the left knee obtained. Findings: Left shoulder: Impacted slightly comminuted humeral neck fracture is seen. Humeral head is well-seated in the glenoid fossa. Degenerative changes in the acromioclavicular joint. No acute bony abnormality of the visualized left ribs. Left elbow: Oblique view of the elbow obtained. This limits assessment for elbow joint effusion. I do not appreciate any definitive fracture dislocation of the elbow. Left knee: No significant knee joint effusion. Bones are normal anatomic alignment with no acute fracture or dislocation seen. Mild degenerative changes with loss of joint space in the medial compartment. XR/XR elbow LT min 3V Impression: 1. Impacted slightly comminuted humeral neck fracture. 2. Oblique view of the elbow limits assessment for elbow joint effusion. I do not appreciate any definitive fracture or dislocation.
--- NOTE | ~2023-05-31 | XR_ITS ---
Examination: XR shoulder LT min 2V, XR knee LT 3V, XR elbow LT min 3V Indication: pain s/p trauma Comparison: No pertinent prior studies are currently available for comparison. Technique: 3 views of the left shoulder, lateral view of the elbow, and 4 views of the left knee obtained. Findings: Left shoulder: Impacted slightly comminuted humeral neck fracture is seen. Humeral head is well-seated in the glenoid fossa. Degenerative changes in the acromioclavicular joint. No acute bony abnormality of the visualized left ribs. Left elbow: Oblique view of the elbow obtained. This limits assessment for elbow joint effusion. I do not appreciate any definitive fracture dislocation of the elbow. Left knee: No significant knee joint effusion. Bones are normal anatomic alignment with no acute fracture or dislocation seen. Mild degenerative changes with loss of joint space in the medial compartment. XR/XR shoulder LT min 2V Impression: 1. Impacted slightly comminuted humeral neck fracture. 2. Oblique view of the elbow limits assessment for elbow joint effusion. I do not appreciate any definitive fracture or dislocation.
[2023-05-31 19:46] VITALS: BP 184/82; PULSE 91; O2SAT 95
[2023-05-31 20:06] VITALS: BP 164/83; PULSE 87; RESP 20; TEMP 36.7; O2SAT 99; BMI 34.5
[2023-05-31] MEDS: HYDROcodone Bit/Acetam 5/325 TABLET 1 TAB PO (20:51)
--- NOTE | 2023-05-31 21:20 | PC.NURSE ---
pt up to nearby restroom with rn with great difficulty requiring assistance with toileting s/t pain. Pt noted to support left arm with right hand, still a lot of discomfort reported and observed. She tearfully reported that the increased pain was making her nauseous, rn to consult martha for antiemetic. Pt tearful and inquiring about length of time until medicine kicks in then stated You guys just might have to knock me out in regards to being able to remove the pt's clothing. Imaging currently on hold as pt's pain is making removal of her upper body clothing difficult and per radiology the layers and bra she has in place would make imaging difficult to clearly see. call garcia in reach
--- NOTE | 2023-05-31 21:31 | ED_ITS ---
HPI - Extremity Problem General Chief complaint: Extremity Injury, Upper Stated complaint: fell going to car, 01/04 shoulder pain Time Seen by Provider: 05/31/23 20:07 Source: patient and RN notes reviewed Mode of arrival: EMS Limitations: no limitations History of Present Illness HPI Narrative: This is a 53-year-old female, with a history of PFO, colitis, asthma, thyroid disease, GERD, and anemia presenting to the emergency department via EMS with complaints of left-sided shoulder and elbow pain status post mechanical fall. Patient states that she was running back to her car when she accidentally tripped and fell forward, striking her left shoulder and left elbow and left knee. She was able to walk after the injury however unable to move her left shoulder Denies head strike, loss of consciousness. She states that she has been unable to move her left shoulder and elbow secondary to pain. She endorses some nausea, denies chest pain, shortness of breath, abdominal pain, vomiting or diarrhea. She is not on blood thinners. No other complaints or concerns at this time. MD Complaint: extremity pain Location: left and upper extremity Quality: aching Radiation: none Relieving factors: immobilization Exacerbating factors: range of motion and palpation Associated symptoms: denies other symptoms Related Data Home Medications Medication Instructions Recorded Confirmed famotidine 20 mg tablet 40 mg PO DAILY 10/16/22 05/28/23 omalizumab 150 mg subcutaneous 150 mg subcut Q4W 10/29/22 05/28/23 solution (Xolair) Previous Rx's Medication Instructions Recorded ProAir HFA 90 mcg/actuation 2 puff inhalation Q4H #8.5 grams 02/19/22 aerosol inhaler (albuterol sulfate) ipratropium 0.5 mg-albuterol 3 mg 3 ml inhalation Q4-6H PRN wheezing 10/14/22 (2.5 mg base)/3 mL nebulization 30 days #270 mL soln montelukast 10 mg tablet 10 mg PO DAILY #90 tabs 03/03/23 fluticasone propionate 50 2 spray intranasal BID 30 days #16 03/04/23 mcg/actuation nasal grams spray,suspension (Flonase Allergy Relief) levothyroxine 175 mcg tablet 175 mcg PO QAM 90 days #90 tabs 03/04/23 meclizine 25 mg tablet 25 mg PO TID PRN dizziness 30 days 04/03/23 #90 tabs lidocaine 5 % topical patch 1 patch topical DAILY #15 ea 04/11/23 (Lidoderm) naproxen 500 mg tablet 500 mg PO Q8-12H PRN pain (scale 04/11/23 score 4-6) #14 tabs bupropion HCl 150 mg tablet,12 hr 150 mg PO QAM #90 tabs 04/25/23 sustained-release (Wellbutrin SR) fluticasone propionate 230 2 puff inhalation Q12H 30 days #12 05/13/23 mcg-salmeterol 21 mcg/actuation grams HFA inhaler (Advair HFA) loratadine 10 mg tablet 10 mg PO DAILY 30 days #30 tabs 05/19/23 benzonatate 200 mg capsule 200 mg PO TID PRN cough #30 caps 05/22/23 hydrocodone 5 mg-acetaminophen 325 1 tab PO Q6H PRN pain #10 tabs 05/31/23 mg tablet Allergies Allergy/AdvReac Type Severity Reaction Status Date / Time niacin Allergy Intermediate skin Verified 05/28/23 08:00 [Niaspan Extended-Release] blisters tramadol Allergy Intermediate seizures Verified 05/28/23 08:00 barley [BARLEY] Allergy Unknown UNKNOWN Verified 05/28/23 08:00 fluticasone [Advair Diskus] Allergy Unknown Shortness Verified 05/28/23 08:00 of Breath ibuprofen Allergy Unknown Swelling Verified 05/28/23 08:00 naratriptan Allergy Unknown unknown Verified 05/28/23 08:00 Penicillins [PENICILLINS] Allergy Unknown Unknown Verified 05/28/23 08:00 sumatriptan Allergy Unknown unknown Verified 05/28/23 08:00 trazodone [TRAZODONE] Allergy Unknown UNKNOWN Verified 05/28/23 08:00 equate cough drops sugar free Allergy Mild Unknown Uncoded 05/22/23 10:51 Review of Systems Review of Systems: Yes all other systems are reviewed and are negative Constitutional: Constitutional: Reports as per [facility] Past Medical History Medical History PFO (patent foramen ovale) History of transesophageal echocardiography (LAN) Colitis Abnormal angiogram of head COVID-19 Asthma Thyroid disease GERD (gastroesophageal reflux disease) Anemia Aneurysm Surgical History History of surgery of uterus H/O endoscopy History of H/O brain surgery History of colonoscopy Family History Family History Father Diabetes Arthritis Diverticulitis Leukemia Mental health disorder Lung cancer Mother Anemia Arthritis Colon polyps Myocardial infarction Brother Crohn's disease Testicular cancer Brother Cancer Paternal Grandfather Leukemia Other Substance use disorder Social History Social History Household Members: Significant Other Housing: House Are you a primary career representative to a significant other at home: No Do you presently have visiting nurse or other home services: No Alcohol intake: former Patient Tobacco Use Status: Former Tobacco user Tobacco use type: Cigarette e-Cigarette/Vaping Use: Never Used Advance Directives: Yes Advance Directives on File: Yes Advance Directives Date on File: 04/09/21 service: No 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al status: employed Cognitive needs: No Hearing needs: No Vision needs: Yes Physical Exam Vital Signs: Vital Signs: Last Vital Signs Temp 98.1 F 05/31/23 20:06 Pulse 86 05/31/23 22:47 Resp 16 05/31/23 22:47 BP 124/85 05/31/23 22:47 Pulse Ox 97 05/31/23 22:47 O2 Del Method Room Air 05/31/23 22:47 BMI result Body Mass Index 34.5 Const: General: cooperative, comfortable and no acute distress Orientation/consciousness: patient oriented x3 Limitations: no limitations HEENT: Head: Yes normal to inspection, Yes normocephalic, Yes atraumatic, No palpable skull fracture and No raccoon eyes Ears: hearing grossly normal bilaterally and TM's normal bilaterally General nose exam: Normal external nose present Face and sinus: Yes normal facial exam Mouth: Normal oral and palatal mucosa present, oropharynx normal and moist mucous membranes Throat: Yes posterior oropharynx normal Eyes: General: appearance normal, both eyes and all related structures Eyelids: Yes eyelids normal Conjunctivae: conjunctivae normal Sclerae: sclerae normal Pupils: Equal, round and reactive pupils present EOM: EOMs intact bilaterally Neck: Neck: Yes normal visual inspection, Yes full ROM and Yes no lymphadenopathy Lymphatic: no lymphadenopathy noted Chest: Chest palpation & inspection: normal inspection of the chest Resp: Effort & Inspection: normal respiratory effort and able to speak in complete sentences Auscultation: clear to auscultation bilaterally, no crackles, no rales, no rhonchi and no wheezes Cardio: Rate: regular rate Rhythm: regular rhythm Heart sounds: S1 normal heart sound present and S2 normal heart sound present GI: Inspection: Yes normal to inspection Skin: General skin exam: no rashes or lesions noted Trauma: no lacerations or abrasions Wounds: no wounds Neuro: General: patient oriented x3 and moves all extremities Cranial nerves: Yes Equal, round and reactive pupils present Extrem: Other: Left knee with superficial abrasion, no active bleeding, with moderate edema and ecchymosis noted to the lateral aspect, pain with varus and valgus strain, negative anterior-posterior drawer Left shoulder with tenderness palpation along the humeral head, with edema noted, no gross bony abnormality seen. No open wounds, or open fracture noted. Distal sensation circulation intact, unable to move left shoulder secondary to pain Left elbow nontender, full range of motion General: Yes normal to inspection Right upper extremity: normal to inspection Left upper extremity: normal to inspection Right lower extremity: normal to inspection Left lower extremity: normal to inspection Course Reevaluation(s) Reevaluation #1: Shoulder x-ray reveals impacted slightly comminuted humeral neck fracture knee x-rays well as elbow x-ray unremarkable. Placed left arm into sling. Patient was also medicated with IM Dilaudid. Discharged on hydrocodone and advised to follow-up with Orthopedics. Patient given return precautions. Patient stable for discharge Medications Administered Discontinued Medications Generic Name Dose Route Start Last Admin Trade Name Arthurq PRN Reason Stop Dose Admin Hydrocodone Bitart/Acetaminophen 1 tab 05/31/23 20:32 05/31/23 20:51 Hydrocodone Bit/Acetam 5/325 Tablet PO 05/31/23 20:33 1 tab ONCE ONE Administration Hydromorphone HCl 1 mg 05/31/23 22:32 05/31/23 22:49 Hydromorphone Hcl 1 Mg/Ml Syringe IM 05/31/23 22:33 1 mg ONCE ONE Administration Protocol Ondansetron HCl 4 mg 05/31/23 21:19 05/31/23 21:38 Ondansetron Odt 4 Mg Tab.Annabella LOCO 05/31/23 21:20 4 mg ONCE ONE Administration Medical Decision Making Medical Decision Making [facility] Narrative: This is a 53-year-old female, with a history of PFO, TIA, colitis, asthma, thyroid disease, GERD, anemia and aneurysm, presenting to the emergency department via EMS with complaints of left-sided shoulder and elbow pain status post mechanical fall. On arrival slightly hypertensive at 164/83 likely due to pain. Patient unable to left shoulder secondary to pain. Patient has multiple drug allergies, and states that she does not tolerate opiates well, reports adverse reaction to morphine. She states that she has taken Percocet before without complications. Patient medicated with Percocet 5 mg. Plan: X-ray left shoulder, left elbow, left knee Differential Diagnosis Differential Diagnoses: The differential diagnosis associated with the presentation includes Fracture, contusion, sprain, strain, dislocation Radiology Impression Discussion of test interpretation with radiology: I have reviewed the radiologist's reading. Radiologist Impression: Examination: XR shoulder LT min 2V, XR knee LT 3V, XR elbow LT min 3V Indication: pain s/p trauma Comparison: No pertinent prior studies are currently available for comparison. Technique: 3 views of the left shoulder, lateral view of the elbow, and 4 views of the left knee obtained. Findings: Left shoulder: Impacted slightly comminuted humeral neck fracture is seen. Humeral head is well-seated in the glenoid fossa. Degenerative changes in the acromioclavicular joint. No acute bony abnormality of the visualized left ribs. Left elbow: Oblique view of the elbow obtained. This limits assessment for elbow joint effusion. I do not appreciate any definitive fracture dislocation of the elbow. Left knee: No significant knee joint effusion. Bones are normal anatomic alignment with no acute fracture or dislocation seen. Mild degenerative changes with loss of joint space in the medial compartment. XR/XR shoulder LT min 2V Impression: 1. Impacted slightly comminuted humeral neck fracture. 2. Oblique view of the elbow limits assessment for elbow joint effusion. I do not appreciate any definitive fracture or dislocation. Dictated By: Cam Aparicio MD Comparison: No pertinent prior studies are currently available for comparison. Technique: 3 views of the left shoulder, lateral view of the elbow, and 4 views of the left knee obtained. Findings: Left shoulder: Impacted slightly comminuted humeral neck fracture is seen. Humeral head is well-seated in the glenoid fossa. Degenerative changes in the acromioclavicular joint. No acute bony abnormality of the visualized left ribs. Left elbow: Oblique view of the elbow obtained. This limits assessment for elbow joint effusion. I do not appreciate any definitive fracture dislocation of the elbow. Left knee: No significant knee joint effusion. Bones are normal anatomic alignment with no acute fracture or dislocation seen. Mild degenerative changes with loss of joint space in the medial compartment. XR/XR knee LT 3V Impression: 1. Impacted slightly comminuted humeral neck fracture. 2. Oblique view of the elbow limits assessment for elbow joint effusion. I do not appreciate any definitive fracture or dislocation. Dictated By: Cam Aparicio MD Discharge Plan Discharge Clinical Impression: Fracture of neck of humerus Patient Disposition: Home, Self-Care Instructions: Arm Fracture in Adults (ED) Additional Instructions: You were seen in the ER after a trip and fall today. Your left shoulder is broken. Please keep your arm in the sling until you follow up with orthopedics. Call tomorrow to make an appointment. Your left knee xray did not show any broken bones. Take prescribed pain medication as directed. Please be advised that this is a strong pain medication, that can cause drowsiness, as well as the addictive. Only use for severe pain only. If any new or worsening symptoms occur including but not limited to numbness and tingling into your fingers, chest pain, shortness of breath, abdominal pain, headaches, blurred vision, please return for re-evaluation Prescriptions: New hydrocodone-acetaminophen 5-325 mg tablet 1 tab PO Q6H PRN (Reason: pain) Qty: 10 0RF Rx Instructions: Partial Fill upon patient request. No Action albuterol sulfate [ProAir HFA] 90 mcg/actuation HFA aerosol inhaler 2 puff inhalation Q4H Qty: 8.5 0RF fluticasone propionate [Flonase Allergy Relief] 50 mcg/actuation spray,suspension 2 spray intranasal BID 30 Days Qty: 16 3RF Rx Instructions: administer into each nostril levothyroxine 175 mcg tablet 175 mcg PO QAM 90 Days Qty: 90 0RF bupropion HCl [Wellbutrin SR] 150 mg tablet sustained-release 12 hr 150 mg PO QAM Qty: 90 0RF fluticasone propion-salmeterol [Advair HFA] 230-21 mcg/actuation HFA aerosol inhaler 2 puff inhalation Q12H 30 Days Qty: 12 6RF loratadine 10 mg tablet 10 mg PO DAILY 30 Days Qty: 30 6RF lidocaine [Lidoderm] 5 % adhesive patch,medicated 1 patch topical DAILY Qty: 15 0RF Rx Instructions: leave on most painful area for up to 12 hrs naproxen 500 mg tablet 500 mg PO Q8-12H PRN (Reason: pain (scale score 4-6)) Qty: 14 0RF Xolair 150 mg recon soln 150 mg subcut Q4W montelukast 10 mg tablet 10 mg PO DAILY Qty: 90 0RF meclizine 25 mg tablet 25 mg PO TID PRN (Reason: dizziness) 30 Days Qty: 90 0RF benzonatate 200 mg capsule 200 mg PO TID PRN (Reason: cough) Qty: 30 0RF ipratropium-albuterol 0.5 mg-3 mg(2.5 mg base)/3 mL solution for nebulization 3 ml inhalation Q4-6H PRN (Reason: wheezing) 30 Days Qty: 270 6RF famotidine 20 mg tablet 40 mg PO DAILY Referrals: [facility] [Provider Group] Stand Alone Forms: Work/School Release Interventions: ED Discharge Assessment Last Done: 05/31/23 23:38 Discharge Date/Time: 05/31/23 23:33
[2023-05-31] MEDS: Ondansetron ODT 4 MG TAB.RAPDIS TRANSLINGU (21:38)
[2023-05-31 22:47] VITALS: BP 124/85; PULSE 86; RESP 16; O2SAT 97
[2023-05-31] MEDS: HYDROmorphone HCl 1 MG/ML SYRINGE IM (22:49)
== END 2023-05-31 23:33 | disposition home or self-care (01) ==
PROVIDERS: Emergency Provider Internal Medicine
DX: S42.212A Unspecified displaced fracture of surgical neck of left humerus, initial encounter for closed fracture (principal); M25.512 Pain in left shoulder; M25.522 Pain in left elbow; M25.562 Pain in left knee; W01.0XXA Fall on same level from slipping, tripping and stumbling without subsequent striking against object, initial encounter; Y93.9 Activity, unspecified; Y92.89 Other specified places as the place of occurrence of the external cause; Y99.8 Other external cause status; Z79.899 Other long term (current) drug therapy; Z87.891 Personal history of nicotine dependence
CPT/HCPCS: 73030; 73080; 73562; 96372; 99284; J1170

== ENCOUNTER 2023-06-02 13:08 | Outpatient (AMB) | payer OTHER, SELFPAY ==
[2023-06-02 14:27] VITALS: BP 110/69; PULSE 78; TEMP 36.3; O2SAT 96; BMI 34.4
--- NOTE | 2023-06-02 14:27 | MHC.OFFWIV ---
Intake Vital Signs 06/02/23 14:27 Height 5 ft 5 in Weight 207 lb BMI 34.4 BP 110/69 Blood Pressure Location Lt brachial Position Sitting Pulse 78 Pulse Source Pulse Oximeter Temp 97.4 F Temp Source Temporal Artery Scan Pulse Oximetry (%) 96 Oxygen Delivery Method Room Air Intake Visit Reasons: EST/neck/shoulder pain (lobby) Intake Note: pt is here today for neck shoulder pain started thursday Patient Tobacco Use Status: Former Tobacco user Allergies niacin [Niaspan Extended-Release] Allergy (Intermediate, Verified 06/02/23 15:46) skin blisters tramadol Allergy (Intermediate, Verified 06/02/23 15:46) seizures barley [BARLEY] Allergy (Unknown, Verified 06/02/23 15:46) UNKNOWN fluticasone [Advair Diskus] Allergy (Unknown, Verified 06/02/23 15:46) Shortness of Breath ibuprofen Allergy (Unknown, Verified 06/02/23 15:46) Swelling naratriptan Allergy (Unknown, Verified 06/02/23 15:46) unknown Penicillins [PENICILLINS] Allergy (Unknown, Verified 06/02/23 15:46) Unknown sumatriptan Allergy (Unknown, Verified 06/02/23 15:46) unknown trazodone [TRAZODONE] Allergy (Unknown, Verified 06/02/23 15:46) UNKNOWN equate cough drops sugar free Allergy (Mild, Uncoded 06/02/23 15:46) Unknown Do you need a note to return to daycare/school/sports/work: No HPI EST/neck/shoulder pain (lobby) HPI Details 53 yr old female presents to the office for a sick visit. Patient was seen at the ER recently and was diagnosed with a surgical fracture neck of the left humerus. She was sent home with a sling and asked to follow up with ortho. She was given a few pills for pain. Patient reports she is not able to see the ortho till the end of May. She is in considerable pain and discomfirt and her regular PCP is not available. She is also requesting VNA services. [facility] Medical History PFO (patent foramen ovale) History of transesophageal echocardiography (LAN) Colitis Abnormal angiogram of head COVID-19 Asthma Thyroid disease GERD (gastroesophageal reflux disease) Anemia Aneurysm Surgical History History of surgery of uterus H/O endoscopy History of H/O brain surgery History of colonoscopy Family History Father Diabetes Arthritis Diverticulitis Leukemia Mental health disorder Lung cancer Mother Anemia Arthritis Colon polyps Myocardial infarction Brother Crohn's disease Testicular cancer Brother Cancer Paternal Grandfather Leukemia Other Substance use disorder Social History Household Members: Significant Other Housing: House Are you a primary career guidance counselor to a significant other at home: No Do you presently have visiting nurse or other home services: No Alcohol intake: former Patient Tobacco Use Status: Former Tobacco user Tobacco use type: Cigarette e-Cigarette/Vaping Use: Never Used Advance Directives Date on File: 04/09/21 service: No 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al status: employed Cognitive needs: No Hearing needs: No Vision needs: Yes Physical Exam Vital Signs: Last Vital Signs Temp 97.4 F 06/02/23 14:27 Pulse 78 06/02/23 14:27 BP 110/69 06/02/23 14:27 Pulse Ox 96 06/02/23 14:27 Oxygen Delivery Method Room Air 06/02/23 14:27 BMI result Body Mass Index 34.4 Const Other: In discomfirt/ Extrem Other: Left shoulder is in a sling: Bruising over the left arm, range of motion not tested Assessment & Plan Assessment & Plan (1) Fracture of left humerus: Code(s): S42.302A - Unspecified fracture of shaft of humerus, left arm, initial encounter for closed fracture Plan: 10 pills of oxycodone provided. Request for VNA service sent to Dr Tay's nurse Coding Level of Care Code Est Pt Level 3 (99757) Diagnoses Fracture of left humerus S42.302A
== END 2023-06-02 15:35 | disposition home or self-care (01) ==
PROVIDERS: Visit Provider Internal Medicine
DX: S42.302A Unspecified fracture of shaft of humerus, left arm, initial encounter for closed fracture (principal)
CPT/HCPCS: 99213

== ENCOUNTER 2023-06-19 09:02 | Outpatient (REF) | payer OTHER, SELFPAY ==
--- NOTE | ~2023-06-19 | XR_ITS ---
EXAMINATION: XR LEFT SHOULDER XR LEFT ELBOW CLINICAL INFORMATION: Pain in unspecified shoulder and elbow. Per technologist statement, patient is immobilized and these are best images possible. COMPARISON: 05/29/2023 left shoulder and elbow radiographs. TECHNIQUE: 2 views of the left shoulder. 2 views of the left elbow. FINDINGS: LEFT SHOULDER: Redemonstration of impacted, slightly comminuted humeral neck fracture. Humeral head overlies the glenoid fossa. Degenerative changes in the acromioclavicular joint. Degenerative changes on limited views of the upper thoracic spine. LEFT ELBOW: Limited visualization due to limited ability of patient to cooperate for positioning. No gross displaced fracture appreciated, although evaluation is severely limited due to limited images. XR/XR elbow LT min 3V IMPRESSION: 1. Redemonstration of impacted, slightly comminuted humeral neck fracture. Humeral head overlies the glenoid fossa. 2. Severely limited visualization of the left elbow due to limited ability of patient to cooperate for positioning. No gross displaced fracture appreciated, although evaluation is severely limited due to limited images. Recommend repeat imaging when patient is able. CT scan could be considered for further evaluation.
--- NOTE | ~2023-06-19 | XR_ITS ---
EXAMINATION: XR LEFT SHOULDER XR LEFT ELBOW CLINICAL INFORMATION: Pain in unspecified shoulder and elbow. Per technologist statement, patient is immobilized and these are best images possible. COMPARISON: 05/29/2023 left shoulder and elbow radiographs. TECHNIQUE: 2 views of the left shoulder. 2 views of the left elbow. FINDINGS: LEFT SHOULDER: Redemonstration of impacted, slightly comminuted humeral neck fracture. Humeral head overlies the glenoid fossa. Degenerative changes in the acromioclavicular joint. Degenerative changes on limited views of the upper thoracic spine. LEFT ELBOW: Limited visualization due to limited ability of patient to cooperate for positioning. No gross displaced fracture appreciated, although evaluation is severely limited due to limited images. XR/XR shoulder LT min 2V IMPRESSION: 1. Redemonstration of impacted, slightly comminuted humeral neck fracture. Humeral head overlies the glenoid fossa. 2. Severely limited visualization of the left elbow due to limited ability of patient to cooperate for positioning. No gross displaced fracture appreciated, although evaluation is severely limited due to limited images. Recommend repeat imaging when patient is able. CT scan could be considered for further evaluation.
== END 2023-06-19 09:03 | disposition home or self-care (01) ==
LOC: HO.HOSX 09:02
PROVIDERS: Visit Provider Physician Assistant
DX: M25.522 Pain in left elbow (principal); M25.512 Pain in left shoulder; S42.212A Unspecified displaced fracture of surgical neck of left humerus, initial encounter for closed fracture; W01.0XXA Fall on same level from slipping, tripping and stumbling without subsequent striking against object, initial encounter; Y93.02 Activity, running; Y92.9 Unspecified place or not applicable; Y99.9 Unspecified external cause status
CPT/HCPCS: 73030; 73080; 99212

== ENCOUNTER 2023-06-19 09:58 | Outpatient (AMB) | payer OTHER, SELFPAY ==
--- NOTE | 2023-06-19 10:31 | A.OFFVIS_ITS ---
Intake Vital Signs 06/19/23 10:35 Height 5 ft 5 in Weight 207 lb BMI 34.4 Handedness Ambidextrous Intake Visit Reasons: fc- Fracture of neck of humerus Intake Note: Berenice a 53 year old right hand dominant female presents today for an ER follow up of left humeral neck fx, DOI 05/31/23. Patient reports that she was running to her car when she accidentally tripped and fell forward, striking her left sided shoulder, elbow and knee. She presented to [facility] ED where x-rays were taken and placed in a sling. Currently is having some pain, however when she was getting her x rays done he pain went to a 8/10 on the pain scale. She states that she is feeling pain in her left side of her ribs. Allergies niacin [Niaspan Extended-Release] Allergy (Intermediate, Verified 06/19/23 10:34) skin blisters tramadol Allergy (Intermediate, Verified 06/19/23 10:34) seizures barley [BARLEY] Allergy (Unknown, Verified 06/19/23 10:34) UNKNOWN fluticasone [Advair Diskus] Allergy (Unknown, Verified 06/19/23 10:34) Shortness of Breath ibuprofen Allergy (Unknown, Verified 06/19/23 10:34) Swelling naratriptan Allergy (Unknown, Verified 06/19/23 10:34) unknown Penicillins [PENICILLINS] Allergy (Unknown, Verified 06/19/23 10:34) Unknown sumatriptan Allergy (Unknown, Verified 06/19/23 10:34) unknown trazodone [TRAZODONE] Allergy (Unknown, Verified 06/19/23 10:34) UNKNOWN equate cough drops sugar free Allergy (Mild, Uncoded 06/02/23 15:46) Unknown HPI fc- Fracture of neck of humerus HPI Details 53-year-old right hand dominant female philippe cadet presents in the office today, as a new patient, for an evaluation of left shoulder pain. The patient presented to the ED on 05/31/2023 status post a mechanical fall injuring her left shoulder and elbow. Per the ED note, the patient reported she was running back to her car when she tripped and fell forward. X-rays were obtained. The patient was placed in a sling, prescribed hydrocodone-acetaminophen 5-325 mg PO Q6H PRN with 10 tablets, and referred to Orthopedics. The patient presented to [facility] on 06/[facility]2023 to discuss a refill on pain medication. Per the clinic note, the patient reports she is not able to see orthopedics till the end of May. She is in considerable pain and discomfort and her regular PCP is not available. She is also requesting VNA services. The patient was given a refill for hydrocodone-acetaminophen 5-325 mg PO Q6H PRN with 10 tablets. While in the office today the patient reports when she fell she was laying on the floor for about an hour due to not being able to get up. She states she is still having pain and while obtaining x-rays she reports her pain as an 8/10. She also reports pain on the left side of her ribs. She states she has been sleeping on the couch at night due to not being about to sleep in the bed. She states she has been coming out of the sling to sleep. She reports radiating pain from the left shoulder to the left hand. She reports she has been taking 30-40 Ibuprofen tablets daily. She states she has been taking Naproxen with no pain relief. She denies taking Tylenol. 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 [facility] Medical History PFO (patent foramen ovale) History of transesophageal echocardiography (LAN) Colitis Abnormal angiogram of head COVID-19 Asthma Thyroid disease GERD (gastroesophageal reflux disease) Anemia Aneurysm Surgical History History of surgery of uterus H/O endoscopy History of H/O brain surgery History of colonoscopy Family History Father Diabetes Arthritis Diverticulitis Leukemia Mental health disorder Lung cancer Mother Anemia Arthritis Colon polyps Myocardial infarction Brother Crohn's disease Testicular cancer Brother Cancer Paternal Grandfather Leukemia Other Substance use disorder Social History (Updated 06/19/23 @ 10:35 by Lauren Cowart) Household Members: Significant Other Housing: House Are you a primary district manager primary care sales to a significant other at home: No Do you presently have visiting nurse or other home services: No Alcohol intake: former Patient Tobacco Use Status: Former Tobacco user Tobacco use type: Cigarette e-Cigarette/Vaping Use: Never Used Advance Directives Date on File: 04/09/21 service: No 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al status: employed 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: [employer]/ right hand dominant Cognitive needs: No Hearing needs: No Vision needs: Yes Review of Systems Const All systems reviewed & are unremarkable except as noted in HPI and below Physical Exam Vital Signs: BMI result Body Mass Index 34.4 Const General: cooperative and no acute distress Orientation/consciousness: patient oriented x3 Resp Effort & Inspection: normal respiratory effort and able to speak in complete sentences Cardio Peripheral pulses: Peripheral pulses 2+ throughout Skin General skin exam: no rashes or lesions noted Neuro General: patient oriented x3 Extrem Other: Left shoulder: Able to flex and extend at the wrist. Reports intermittent numbness and tingling that is positional in the fingers. Able to flex and extend, pronation and supinate the elbow as well but is limited due to pain. Radial pulse intact. Office Procedures Fracture Care Fracture Billing Code: Fracture Billing Code Assessment & Plan Assessment & Plan (1) Fracture of neck of left humerus: Onset Date: ~05/31/23 Code(s): S42.212A - Unspecified displaced fracture of surgical neck of left humerus, initial encounter for closed fracture Qualifiers: Encounter type: initial encounter Fracture type: closed Qualified Code(s): S42.212A - Unspecified displaced fracture of surgical neck of left humerus, initial encounter for closed fracture Plan Ms. Shepard is a 53-year-old right hand dominant female who presents in the office today, as a new patient, for an evaluation of left shoulder pain. The patient presented to the ED on 05/31/2023 status post a mechanical fall injuring her left shoulder and elbow. Per the ED note, the patient reported she was running back to her car when she tripped and fell forward. X-rays were obtained. The patient was placed in a sling, prescribed hydrocodone-acetaminophen 5-325 mg PO Q6H PRN with 10 tablets, and referred to Orthopedics. The patient presented to the [facility] on 06/02/2023 to discuss a refill on pain medication. Per the clinic note, the patient reports she is not able to see orthopedics till the end of May. She is in considerable pain and discomfort and her regular PCP is not available. She is also requesting VNA services. The patient was given a refill for hydrocodone-acetaminophen 5-325 mg PO Q6H PRN with 10 tablets. While in the office today the patient reports when she fell she was laying on the floor for about an hour due to not being able to get up. She states she is still having pain and while obtaining x-rays she reports her pain as an 8/10. She also reports pain on the left side of her ribs. She states she has been sleeping on the couch at night due to not being about to sleep in the bed. She states she has been coming out of the sling to sleep. She reports radiating pain from the left shoulder to the left hand. She reports she has been taking 30-40 Ibuprofen daily. She states she has been taking Naproxen with no pain relief. She denies taking Tylenol. 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 The patient was instructed to remain in the sling. She is able to come out of the sling to allow the arm to hang down. She was demonstrated elbow, wrist, and hand gentle ROM exercises. She was encouraged to work on these exercises daily. The patient reported she has been taking anti-inflammatories in excess since the injury and I have educated her that this can be dangerous and she should discontinue the anti-inflammatories at this time. A prescription for Tramadol 50 mg PO Q8H PRN with 21 tabs for 7 days was sent to the pharmacy today. A referral for physical therapy was placed today with the intent to start in 2 weeks around 07/03/2023. She was given an out of work note until follow up. Follow up will be in 5-6 weeks with repeat x-rays, or sooner if needed. X-rays of the left shoulder which were obtained while in the office today and were reviewed by me, Tiffany Camarillo PA-C, revealed humeral neck fracture. X-rays of the left elbow, obtained on 05/31/2023, revealed: Impacted slightly comminuted humeral neck fracture is seen. Humeral head is well-seated in the glenoid fossa. Degenerative changes in the acromioclavicular joint. No acute bony abnormality of the visualized left ribs. Orders: Orders XR shoulder LT min 2V Today M25.519 - Pain in unspecified shoulder XR elbow LT min 3V Today M25.529 - Pain in unspecified elbow Medications: New tramadol 50 mg PO Q8H PRN 21 tabs 0RF pain 7 days Patient Instructions: Scribed by Kacie Hastings chief medical technologist, for Tiffanymitra Camarillo PA-C on 06/19/2023 at 10:00 am, EST. Coding Level of Care Code Est Pt Level 4 (61775) Diagnoses Closed fracture of neck of left humerus, initial encounter S42.212A Encounter type: initial encounter Fracture type: closed CPT Codes Fracture Care - Fracture Billing Code: Fracture Billing Code ([id number])
[2023-06-19 10:35] VITALS: BMI 34.4
== END 2023-06-19 11:16 | disposition home or self-care (01) ==
PROVIDERS: Visit Provider Physician Assistant
DX: S42.212A Unspecified displaced fracture of surgical neck of left humerus, initial encounter for closed fracture (principal)
CPT/HCPCS: 99214

== ENCOUNTER 2023-06-25 11:22 | Outpatient (REF) | payer OTHER, SELFPAY ==
[2023-06-25 11:27] VITALS: BP 131/89; PULSE 82; RESP 18; TEMP 36.6; O2SAT 97; BMI 34.8
[2023-06-25] MEDS: Omalizumab 150 MG/ML SYRINGE 300 MG SUBCUT (11:34)
== END 2023-06-25 11:23 | disposition home or self-care (01) ==
LOC: HO.MDS 11:22
PROVIDERS: Visit Provider Internal Medicine Pulmonary Disease
DX: J45.50 Severe persistent asthma, uncomplicated (principal)
CPT/HCPCS: 96372; J2357

== ENCOUNTER 2023-07-09 11:59 | Outpatient (AMB) | payer OTHER, SELFPAY ==
--- NOTE | 2023-07-09 12:01 | MHC.OFFVIS ---
Intake Vital Signs 07/09/23 12:03 Height 5 ft 5 in Weight 216 lb 0.848 oz BMI 35.9 BP 162/96 H Blood Pressure Location Rt brachial Position Sitting Pulse 98 Intake Visit Reasons: GERD, Diverticulitis Intake Note: Berenice returns to in office follow up of diverticulitis and GERD. CC: Patient states that she was having constipation, diarrhea, and severe cramping back in April and she ended up in the ER. She states she's had a BM yesterday and today but she is usually constipated. She also c/o left sided abdominal pain under her rib cage and severe acid reflux. Patient s/p fall on 05/31/23 fracturing her Left humerus. 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: No Accompanied by: Self / Same As Patient Allergies niacin [Niaspan Extended-Release] Allergy (Intermediate, Verified 07/09/23 12:16) skin blisters tramadol Allergy (Intermediate, Verified 07/09/23 12:16) seizures barley [BARLEY] Allergy (Unknown, Verified 07/09/23 12:16) UNKNOWN fluticasone [Advair Diskus] Allergy (Unknown, Verified 07/09/23 12:16) Shortness of Breath ibuprofen Allergy (Unknown, Verified 07/09/23 12:16) Swelling naratriptan Allergy (Unknown, Verified 07/09/23 12:16) unknown Penicillins [PENICILLINS] Allergy (Unknown, Verified 07/09/23 12:16) Unknown sumatriptan Allergy (Unknown, Verified 07/09/23 12:16) unknown trazodone [TRAZODONE] Allergy (Unknown, Verified 07/09/23 12:16) UNKNOWN equate cough drops sugar free Allergy (Mild, Uncoded 06/02/23 15:46) Unknown HPI GERD, Diverticulitis HPI Details Assessment & Plan (1) Acute diarrhea: ?Code(s): R19.7 - Diarrhea, unspecified ?Plan: She has nausea on a Thursday, vomited once and then felt better. Then the next day she had watery diarrhea, and she was drinking alot of Gatoraide and pedialyte but then passed out at work. She was taken to the ER where they determined it was syncope r/t vasal vagal and hypokalemia. She has not had any more diarrhea, but also has not had any BM. She is out of work until the as she feels she has concussion symptoms and numbness down her left arm r/t passing out. We discuss the possibility of return of TICs and she has leva and flagyl at home - next time she should try taking this. She did not think of it. Also, she did not think of stopping her bisacodyl, so this also worsened the situation.? It is also entirely possible that this was norovirus since we have been seeing quite a lot of that show up positive in stool samples.? Of course, she could not provide a stool sample in she was in the ER dehydration. She STILL has not heard to schedule the colonoscopy ROV 2 weeks. (2) Diverticulitis: ?Code(s): K57.92 - Diverticulitis of intestine, part unspecified, without perforation or abscess without bleeding (3) GERD (gastroesophageal reflux disease): ?Code(s): K21.9 - Gastro-esophageal reflux disease without esophagitis (4) Abdominal bloating: ?Code(s): R14.0 - Abdominal distension (gaseous) . EGD/COLONOSCOPY NOT SCHEDULED,NO ORDER IN COMPUTER BIOPSY CORRESPONDENCE On 04/30/23 @ 14:36 Sophy Morales Wrote To Berenice Shepard Because I did not see you during this time I cannot feel that the paperwork. If she has have either your primary do it or see if the ER can do it for you. On 04/30/23 @ 14:33 Berenice Shepard (Regarding Self / Same As Patient) Wrote To Sophy Morales My work is sending paperwork over to your office for my leave of absence from 04/26-05/02. I had them send it to you because my illness was gastrointestinal and at the time I put in for the leave I believe that I was suffering from diverticulitis. Please let me know if the paperwork was not faxed over before my appointment on 05/19/23. Thank you, Berenice Shepard On 04/26/23 @ 11:35 JordanNedlee Wrote To Sophy Morales (2) Pt reports lower abd pain, nausea and vomitying with low grade fever of 100 F since yesterday. Has been able to drink water and juice. Pt stated she had a similar episode 6 months ago and was treated with Doxycycline. She has a prescription for Doxycycline given by July in case of recurrent symptoms Pt was advised to start taking the antibiotic. Pt advised to go to the ER if abd pain gets worse or she is unable to tolerate PO fluids or lack of improvement in 24 to 48 hrs after starting antibiotics. Pt will call [facility] on 04/28/23 to schedule an urgent FU appt with July Laboratory Tests 04/28/23 15:37 WBC 6.1 Hgb 13.8 Hct 40.7 MCV 78.4 L MCH 26.6 L Plt Count 205 Creatinine 0.60 Total Bilirubin 0.3 Direct Bilirubin 0.1 AST 19 ALT 16 Alkaline Phosphata se 126 H Lipase 13 TODAY'S VISIT Her insurance changed and she wants to go back on Dexilant instead of famotidine. Her diarrhea that she was seen in the ER for has resolved. She wants to go back on the ?red pill which I think might be Colace along with her simethicone gas pill. We tried Linzess but this just gave her too much diarrhea at all doses. She has been having a pain in the left mid abd since she fell. This is not r/t eating or moving her bowels, but more to movement and bending. She wants to be sent to [facility], and I advise her to speak with her PCP about this. Return office visit in 6 weeks and I will get an abdominal x-ray to try to explore her complaint but since this was after a trauma I really do not think this is necessarily GI mediated. It is possible that is trapped gas and she should not her simethicone. [facility] Medical History (Updated 07/09/23 @ 12:35 by DOT Horn) Anemia Bronchitis due to COVID-19 virus COVID Acute pneumonia Work related injury Acute diarrhea Paresthesias in left hand Dysuria PFO (patent foramen ovale) Shortness of breath Community acquired pneumonia Hospital discharge follow-up Chronic idiopathic constipation Pre-op examination Encounter for routine gynecological examination LFT elevation Encounter for general adult medical examination with abnormal findings Respiratory tract congestion with cough Hospital discharge follow-up COVID-19 Tracheobronchitis COVID-19 Other specified hypothyroidism Colon cancer screening Iron deficiency anemia Shoulder pain, right Nausea and vomiting PFO (patent foramen ovale) History of transesophageal echocardiography (LAN) Colitis Abnormal angiogram of head COVID-19 Asthma Thyroid disease GERD (gastroesophageal reflux disease) Anemia Aneurysm Surgical History History of surgery of uterus H/O endoscopy History of H/O brain surgery History of colonoscopy Family History Father Diabetes Arthritis Diverticulitis Leukemia Mental health disorder Lung cancer Mother Anemia Arthritis Colon polyps Myocardial infarction Brother Crohn's disease Testicular cancer Brother Cancer Paternal Grandfather Leukemia Other Substance use disorder Social History Household Members: Significant Other Housing: House Are you a primary wound care rn to a significant other at home: No Do you presently have visiting nurse or other home services: No Alcohol intake: former Patient Tobacco Use Status: Former Tobacco user Tobacco use type: Cigarette e-Cigarette/Vaping Use: Never Used Advance Directives Date on File: 04/09/21 service: No 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al status: employed 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: [employer]/ right hand dominant Cognitive needs: No Hearing needs: No Vision needs: Yes Review of Systems Const Denies fatigue, Denies fever(s), Denies night sweats, Denies poor appetite and Denies weight loss ENT Reports Normal hearing present, Denies dental pain, Denies dysphagia, Denies hearing loss, Denies mouth pain, Denies odynophagia, Denies throat swelling, Denies tongue swelling and Reports other (Dentition adequate) Card Reports no additional complaints Resp Reports no additional complaints GI Details: Reports abdominal pain, Denies melena, Reports bloating, Denies hematochezia, Reports constipation, Denies GI cramping, Denies dysphagia, Denies excessive flatus, Denies early satiety, Reports heartburn, Denies diarrhea, Denies nausea, Denies odynophagia, Denies vomiting and Denies hematemesis Skin/Breast Denies pruritus, Denies lesions, Denies rash and Denies jaundice Neuro Reports Normal hearing present and Denies Abnormal speech present Endo Denies fatigue Aller/Immun Denies throat swelling and Denies tongue swelling Physical Exam Vital Signs: Last Vital Signs Pulse 98 07/09/23 12:03 BP 162/96 H 07/09/23 12:03 BMI result Body Mass Index 35.9 Const General: cooperative, no acute distress, well developed and well groomed Nutritional Appearance: well nourished and obese Orientation/consciousness: oriented to person, oriented to place and oriented to time Limitations: No language barrier HEENT Head: Yes normocephalic and Yes atraumatic Eyes General: appearance normal, both eyes and all related structures Pupils: Equal, round and reactive pupils present Neck Neck: Yes normal visual inspection and Yes no lymphadenopathy Thyroid: Thyroid normal Resp Effort & Inspection: normal respiratory effort and able to speak in complete sentences Auscultation: clear to auscultation bilaterally Cardio Rate: regular rate Rhythm: regular rhythm Heart sounds: Normal, physiologic split S2 sound present Peripheral pulses: radial pulses present and posterior tibial pulses present GI Inspection: No distended and No Abdominal panniculus present Palpation (GI): Soft to palpation, nontender, no guarding, not rigid and No hepatosplenomegaly present Percussion: Yes normal to percussion Auscultation: normal bowel sounds Rectal Exam - Female: deferred Skin General skin exam: no rashes or lesions noted, turgor normal, skin not dry, no jaundice, No spider nevi and no striae Rashes: no rashes Nails: normal Neuro General: oriented to person, oriented to place and oriented to time Cranial nerves: Yes Equal, round and reactive pupils present and Yes Normal hearing present Speech: No Abnormal speech present Extrem Other: sling on left arm General: No clubbing, No cyanosis and No edema Psych Appearance: grossly normal and well kempt Mental Status: mental status grossly normal Speech and movement: Normal speech and movement present Affect: normal affect Attitude: cooperative Thought process: Normal thought process present and not confabulating Thought content: Normal thought content present Insight: Limited insight present (Psych) Judgement: Limited judgement present (Psych) Assessment & Plan Assessment & Plan (1) GERD (gastroesophageal reflux disease): Code(s): K21.9 - Gastro-esophageal reflux disease without esophagitis (2) Diverticulitis: Code(s): K57.92 - Diverticulitis of intestine, part unspecified, without perforation or abscess without bleeding (3) Anemia: Code(s): D64.9 - Anemia, unspecified (4) Left sided abdominal pain: Code(s): R10.9 - Unspecified abdominal pain Plan Her insurance changed and she wants to go back on Dexilant instead of famotidine. Her diarrhea that she was seen in the ER for has resolved. She wants to go back on the ?red pill which I think might be Colace along with her simethicone gas pill. We tried Linzess but this just gave her too much diarrhea at all doses. She has been having a pain in the left mid abd since she fell. This is not r/t eating or moving her bowels, but more to movement and bending. She wants to be sent to [facility], and I advise her to speak with her PCP about this. Return office visit in 6 weeks and I will get an abdominal x-ray to try to explore her complaint but since this was after a trauma I really do not think this is necessarily GI mediated. It is possible that is trapped gas and she should not her simethicone . EGD/COLONOSCOPY NOT SCHEDULED,NO ORDER IN COMPUTER BIOPSY Orders: Orders EGD/[place] Combo - GI Use Only Today D64.9 - Anemia, unspecified, K57.92 - Diverticulitis of intestine, part unspecified, without perforation or abscess without bleeding XR abdomen w decubitus Today R10.9 - Unspecified abdominal pain Medications: New dexlansoprazole (Dexilant) 60 mg PO DAILY 30 days 30 caps 6RF K21.9 - Gastro-esophageal reflux disease without esophagitis peg 3350-electrolytes 236-22.74-6.74 -5.86 gram (Golytely) until fecal effluent is clear; do not exceed a total volume of 2,000 mL 240 mL PO Q10M 1 day 4,000 mL 0RF Z12.11 - Encounter for screening for malignant neoplasm of colon bisacodyl (Dulcolax (bisacodyl)) 10 mg (2 x 5 mg) PO BEDTIME 2 days 4 tabs 0RF docusate sodium (Colace) 100 mg PO .DAILY WITH FOOD 30 days 30 caps 6RF simethicone after meals 180 mg PO QID 30 days 120 caps 6RF Coding Level of Care Code Est Pt Level 3 (33004) Diagnoses GERD (gastroesophageal reflux disease) K21.9 Diverticulitis K57.92 Anemia D64.9 Left sided abdominal pain R10.9
[2023-07-09 12:03] VITALS: BP 162/96; PULSE 98; BMI 35.9
== END 2023-07-09 12:40 | disposition home or self-care (01) ==
PROVIDERS: Visit Provider Nurse Practitioner
DX: K21.9 Gastro-esophageal reflux disease without esophagitis (principal); K57.92 Diverticulitis of intestine, part unspecified, without perforation or abscess without bleeding; D64.9 Anemia, unspecified; R10.9 Unspecified abdominal pain
CPT/HCPCS: 99213

== ENCOUNTER 2023-07-09 11:59 | Outpatient (REF) | payer OTHER, SELFPAY ==
--- NOTE | ~2023-07-09 | XR_ITS ---
EXAMINATION: XR ABDOMEN WITH DECUBITUS VIEWS CLINICAL INDICATION: Unspecified abdominal pain. COMPARISON: CT abdomen and pelvis of April 28, 2023. Radiographs of the lumbar spine of 04/11/2023. TECHNIQUE: 3 upright and 2 AP supine views of the abdomen. Visualization limited due to body habitus. FINDINGS: Large amount of stool in the colon. Nonobstructive bowel gas pattern. Degenerative changes in the imaged thoracolumbar spine. Sclerotic focus overlying the left iliac wing better characterized on CT scan of April 28, 2023. XR/XR abdomen w decubitus IMPRESSION: Large amount of stool in the colon. Nonobstructive bowel gas pattern.
== END 2023-07-09 12:00 | disposition home or self-care (01) ==
LOC: HO.LAB 11:59
PROVIDERS: PCP Internal Medicine; Visit Provider Nurse Practitioner
DX: R10.9 Unspecified abdominal pain (principal); R14.0 Abdominal distension (gaseous); K21.9 Gastro-esophageal reflux disease without esophagitis; K57.92 Diverticulitis of intestine, part unspecified, without perforation or abscess without bleeding; D64.9 Anemia, unspecified
CPT/HCPCS: 74021; 99212

== ENCOUNTER 2023-07-13 13:36 | Outpatient (AMB) | payer OTHER, SELFPAY ==
--- NOTE | 2023-07-13 13:48 | A.OFFVIS_ITS ---
Intake Vital Signs 07/13/23 13:49 Height 5 ft 5 in Weight 216 lb BMI 35.9 Intake Visit Reasons: OV - left humeral neck fx, DOI 05/31/23 Intake Note: Berenice is a 53 year old right hand dominant female who presents today for a follow up of left humeral neck fx, DOI 05/31/23. Patient reports since she started P.T she started to get some stiffness at her elbow and its causing her a lot of pain. Currently, she is feeling uncomfortable and in a lot of pain. Allergies niacin [Niaspan Extended-Release] Allergy (Intermediate, Verified 07/13/23 13:48) skin blisters tramadol Allergy (Intermediate, Verified 07/13/23 13:48) seizures barley [BARLEY] Allergy (Unknown, Verified 07/13/23 13:48) UNKNOWN fluticasone [Advair Diskus] Allergy (Unknown, Verified 07/13/23 13:48) Shortness of Breath ibuprofen Allergy (Unknown, Verified 07/13/23 13:48) Swelling naratriptan Allergy (Unknown, Verified 07/13/23 13:48) unknown Penicillins [PENICILLINS] Allergy (Unknown, Verified 07/13/23 13:48) Unknown sumatriptan Allergy (Unknown, Verified 07/13/23 13:48) unknown trazodone [TRAZODONE] Allergy (Unknown, Verified 07/13/23 13:48) UNKNOWN equate cough drops sugar free Allergy (Mild, Uncoded 06/02/23 15:46) Unknown HPI OV - left humeral neck fx, DOI 05/31/23 HPI Details 53-year-old right hand dominant female philippe cadet presents in the office today for a follow up of a left humeral neck fracture, which occurred on 05/31/2023 status post a mechanical fall injuring her left shoulder and elbow. I last saw the patient in the office on 06/19/2023 when she was instructed to remain in the sling, and able to come out to allow the arm to hang. She was encouraged to work on her gentle ROM exercises. She was prescribed Tramadol 50 mg PO Q8H PRN with 21 tabs for 7 days. A referral for physical therapy was placed with the intent to start in 2 weeks around 07/03/2023. She was given an out of work note until follow up. While in the office today she reports she started physical therapy. She reports stiffness at her elbow and states this causes her a lot of pain. She reports feeling uncomfortable and having a lot of pain. 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 [facility] Medical History (Updated 07/09/23 @ 12:35 by DOT Horn) Anemia Bronchitis due to COVID-19 virus COVID Acute pneumonia Work related injury Acute diarrhea Paresthesias in left hand Dysuria PFO (patent foramen ovale) Shortness of breath Community acquired pneumonia Hospital discharge follow-up Chronic idiopathic constipation Pre-op examination Encounter for routine gynecological examination LFT elevation Encounter for general adult medical examination with abnormal findings Respiratory tract congestion with cough Hospital discharge follow-up COVID-19 Tracheobronchitis COVID-19 Other specified hypothyroidism Colon cancer screening Iron deficiency anemia Shoulder pain, right Nausea and vomiting PFO (patent foramen ovale) History of transesophageal echocardiography (LAN) Colitis Abnormal angiogram of head COVID-19 Asthma Thyroid disease GERD (gastroesophageal reflux disease) Anemia Aneurysm Surgical History History of surgery of uterus H/O endoscopy History of H/O brain surgery History of colonoscopy Family History Father Diabetes Arthritis Diverticulitis Leukemia Mental health disorder Lung cancer Mother Anemia Arthritis Colon polyps Myocardial infarction Brother Crohn's disease Testicular cancer Brother Cancer Paternal Grandfather Leukemia Other Substance use disorder Social History Household Members: Significant Other Housing: House Are you a primary animal caregiver to a significant other at home: No Do you presently have visiting nurse or other home services: No Alcohol intake: former Patient Tobacco Use Status: Former Tobacco user Tobacco use type: Cigarette e-Cigarette/Vaping Use: Never Used Advance Directives Date on File: 04/09/21 service: No 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al status: employed 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: [employer]/ right hand dominant Cognitive needs: No Hearing needs: No Vision needs: Yes Review of Systems Const All systems reviewed & are unremarkable except as noted in HPI and below Physical Exam Vital Signs: BMI result Body Mass Index 35.9 Const General: cooperative, healthy appearing and no acute distress Resp Effort & Inspection: normal respiratory effort and able to speak in complete sentences Cardio Rate: regular rate Peripheral pulses: Peripheral pulses 2+ throughout GI Palpation (GI): Soft to palpation Skin Lesions: no lesions Rashes: no rashes Extrem Other: Left shoulder: Able to flex and extend at the wrist. Reports intermittent numbness and tingling that is positional in the fingers. Able to flex and extend, pronation and supinate the elbow as well but is limited due to pain. Radial pulse intact. Assessment & Plan Assessment & Plan (1) Fracture of neck of left humerus: Onset Date: ~05/31/23 Code(s): S42.212A - Unspecified displaced fracture of surgical neck of left humerus, initial encounter for closed fracture Qualifiers: Encounter type: initial encounter Fracture type: closed Qualified Code(s): S42.212A - Unspecified displaced fracture of surgical neck of left humerus, initial encounter for closed fracture Plan Ms. Shepard is a 53-year-old right hand dominant female who presents in the office today for a follow up of a left humeral neck fracture, which occurred on 05/31/2023 status post a mechanical fall injuring her left shoulder and elbow. I last saw the patient in the office on 06/19/2023 when she was instructed to remain in the sling, and able to come out to allow the arm to hang. She was encouraged to work on her gentle ROM exercises. She was prescribed Tramadol 50 mg PO Q8H PRN with 21 tabs for 7 days. A referral for physical therapy was placed with the intent to start in 2 weeks around 07/03/2023. She was given an out of work note until follow up. While in the office today she reports she started physical therapy. She reports stiffness at her elbow and states this causes her a lot of pain. She reports feeling uncomfortable and having a lot of pain. 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 Patient was instructed she can come out of the sling to work on gentle ROM. The sling can be worn for comfort only. She will continue to work with physical therapy. She was given an out of work until follow up in 6 weeks. A prescription for Naproxen 500 mg TID PRN was sent to the pharmacy while in the office today. Follow up will be in 6 weeks, or sooner if needed. X-rays of the left elbow which were obtained while in the office today and were reviewed by , Tiffany Camarillo PA-C, revealed no acute fracture or dislocation. X-rays of the left shoulder which were obtained while in the office today and were reviewed by me, Tiffany Camarillo PA-C, revealed routine healing of a left humeral neck fracture. Orders: Orders XR elbow LT min 3V Today M25.529 - Pain in unspecified elbow XR shoulder LT min 2V Today M25.519 - Pain in unspecified shoulder Medications: New naproxen 500 mg PO TID 90 tabs 0RF 30 days Patient Instructions: Scribed by Kacie Hastings medical reimbursement manager, for Tiffany Camarillo PA-C on 07/13/2023 at 1:53 pm, EST. Coding Level of Care Code Global (53685) Diagnoses Closed fracture of neck of left humerus, initial encounter S42.212A Encounter type: initial encounter Fracture type: closed
[2023-07-13 13:49] VITALS: BMI 35.9
== END 2023-07-13 14:59 | disposition home or self-care (01) ==
PROVIDERS: PCP Internal Medicine; Visit Provider Physician Assistant
DX: S42.212A Unspecified displaced fracture of surgical neck of left humerus, initial encounter for closed fracture (principal)
CPT/HCPCS: 99214

== ENCOUNTER 2023-07-13 14:19 | Outpatient (REF) | payer OTHER, SELFPAY ==
--- NOTE | ~2023-07-13 | XR_ITS ---
EXAMINATION: XR ELBOW, LEFT CLINICAL INFORMATION: Left elbow pain COMPARISON: Left elbow 05/31/2023 TECHNIQUE: Two views of the left elbow. FINDINGS: The bones and soft tissues are unremarkable. No fracture or joint effusion. Alignment is anatomic. Joint spaces are maintained. XR/XR elbow LT min 3V IMPRESSION: Normal left elbow.
--- NOTE | ~2023-07-13 | XR_ITS ---
EXAMINATION: XR SHOULDER, LEFT CLINICAL INFORMATION: Pain. COMPARISON: Radiograph left shoulder 06/19/2023. TECHNIQUE: Two views of the left shoulder. FINDINGS: Comminuted left humeral neck fracture with slightly increased osseous bridging compared to 06/19/2023. 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 No significant soft tissue abnormality.. XR/XR shoulder LT min 2V IMPRESSION: Comminuted left humeral neck fracture with slightly increased osseous bridging compared to 06/19/2023.
== END 2023-07-13 14:20 | disposition home or self-care (01) ==
LOC: HO.HOSX 14:19
PROVIDERS: Visit Provider Physician Assistant
DX: S42.212D Unspecified displaced fracture of surgical neck of left humerus, subsequent encounter for fracture with routine healing (principal); M25.522 Pain in left elbow; M25.512 Pain in left shoulder; X58.XXXD Exposure to other specified factors, subsequent encounter
CPT/HCPCS: 73030; 73080; 99212

== ENCOUNTER 2023-07-23 11:45 | Outpatient (REF) | payer OTHER, SELFPAY ==
[2023-07-23 11:51] VITALS: BP 147/93; PULSE 99; RESP 20; TEMP 36.7; O2SAT 96
[2023-07-23] MEDS: Omalizumab 150 MG/ML SYRINGE 300 MG SUBCUT (11:54)
== END 2023-07-23 11:46 | disposition home or self-care (01) ==
LOC: HO.MDS 11:45
PROVIDERS: Visit Provider Internal Medicine Pulmonary Disease
DX: J45.50 Severe persistent asthma, uncomplicated (principal)
CPT/HCPCS: 96372; J2357

== ENCOUNTER 2023-07-28 13:25 | Outpatient (REF) | payer OTHER, SELFPAY ==
--- NOTE | ~2023-07-28 | XR_ITS ---
EXAMINATION: XR SHOULDER, LEFT CLINICAL INFORMATION: Pain. COMPARISON: Radiographs dated 07/13/2023 TECHNIQUE: AP neutral and scapula Y views of the left shoulder are submitted. FINDINGS: Bony alignment and mineralization are normal. There is a mildly displaced displaced and impacted fracture of the left humeral neck, in stable alignment. There is good periosteal callus formation. The glenohumeral joint is intact. The acromioclavicular and coracoclavicular intervals are normal. No left pneumothorax is seen. XR/XR shoulder LT min 2V IMPRESSION: There is stable alignment of a mildly displaced and impacted fracture of the left humeral neck. There is good periosteal callus formation.
== END 2023-07-28 13:26 | disposition home or self-care (01) ==
LOC: HO.HOSX 13:25
PROVIDERS: PCP Internal Medicine; Visit Provider Physician Assistant
DX: M25.512 Pain in left shoulder (principal); S42.212D Unspecified displaced fracture of surgical neck of left humerus, subsequent encounter for fracture with routine healing; W19.XXXD Unspecified fall, subsequent encounter; Z91.81 History of falling
CPT/HCPCS: 73030; 99212

== ENCOUNTER 2023-07-28 13:25 | Outpatient (AMB) | payer OTHER, SELFPAY ==
--- NOTE | 2023-07-28 13:28 | MHC.OFFVIS ---
Intake Intake Visit Reasons: ov- LT shoulder pain Intake Note: Berenice is a 53 year old right hand dominant female who presents today for a follow up of left humeral neck fx, DOI 05/31/23. Patient reports she has fallen again last night, DOI 07/27/23. She states when she was taking Naproxen it didn't give her relief. Patient has found relief in edible taffy. Patient states that PT is giving her mild relief. Allergies niacin [Niaspan Extended-Release] Allergy (Intermediate, Verified 07/28/23 13:33) skin blisters tramadol Allergy (Intermediate, Verified 07/28/23 13:33) seizures barley [BARLEY] Allergy (Unknown, Verified 07/28/23 13:33) UNKNOWN fluticasone [Advair Diskus] Allergy (Unknown, Verified 07/28/23 13:33) Shortness of Breath ibuprofen Allergy (Unknown, Verified 07/28/23 13:33) Swelling naratriptan Allergy (Unknown, Verified 07/28/23 13:33) unknown Penicillins [PENICILLINS] Allergy (Unknown, Verified 07/28/23 13:33) Unknown sumatriptan Allergy (Unknown, Verified 07/28/23 13:33) unknown trazodone [TRAZODONE] Allergy (Unknown, Verified 07/28/23 13:33) UNKNOWN equate cough drops sugar free Allergy (Mild, Uncoded 06/02/23 15:46) Unknown HPI ov- LT shoulder pain HPI Details 53-year-old right hand dominant female who presents in the office today for a follow up of a left humeral neck fracture, which occurred on 05/31/2023 status post a mechanical fall injuring her left shoulder and elbow. I last saw the patient in the office on 07/13/2023. At this time she was instructed to come out of the sling to work on gentle ROM and to continue to work with PT. She was given an out of work until follow up in 6 weeks. A prescription for Naproxen 500 mg TID PRN was sent to the pharmacy. While in the office today the patient reports she fell last night, 07/27/2023. She states she was taking a Naproxen with no relief. She states she found relief with edible taffy. She confirms participating in physical therapy and states it is giving her mild relief. 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 [facility] Medical History (Updated 07/09/23 @ 12:35 by DOT Horn) Anemia Bronchitis due to COVID-19 virus COVID Acute pneumonia Work related injury Acute diarrhea Paresthesias in left hand Dysuria PFO (patent foramen ovale) Shortness of breath Community acquired pneumonia Hospital discharge follow-up Chronic idiopathic constipation Pre-op examination Encounter for routine gynecological examination LFT elevation Encounter for general adult medical examination with abnormal findings Respiratory tract congestion with cough Hospital discharge follow-up COVID-19 Tracheobronchitis COVID-19 Other specified hypothyroidism Colon cancer screening Iron deficiency anemia Shoulder pain, right Nausea and vomiting PFO (patent foramen ovale) History of transesophageal echocardiography (LAN) Colitis Abnormal angiogram of head COVID-19 Asthma Thyroid disease GERD (gastroesophageal reflux disease) Anemia Aneurysm Surgical History History of surgery of uterus H/O endoscopy History of H/O brain surgery History of colonoscopy Family History Father Diabetes Arthritis Diverticulitis Leukemia Mental health disorder Lung cancer Mother Anemia Arthritis Colon polyps Myocardial infarction Brother Crohn's disease Testicular cancer Brother Cancer Paternal Grandfather Leukemia Other Substance use disorder Social History Household Members: Significant Other Housing: House Are you a primary healthcare economics consultant to a significant other at home: No Do you presently have visiting nurse or other home services: No Alcohol intake: former Patient Tobacco Use Status: Former Tobacco user Tobacco use type: Cigarette e-Cigarette/Vaping Use: Never Used Advance Directives Date on File: 04/09/21 service: No 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al status: employed 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: [employer]/ right hand dominant Cognitive needs: No Hearing needs: No Vision needs: Yes Review of Systems Const All systems reviewed & are unremarkable except as noted in HPI and below Physical Exam Const General: cooperative, healthy appearing and no acute distress Resp Effort & Inspection: normal respiratory effort and able to speak in complete sentences Cardio Rate: regular rate Peripheral pulses: Peripheral pulses 2+ throughout GI Palpation (GI): Soft to palpation Skin Lesions: no lesions Rashes: no rashes Extrem Other: Left shoulder: Able to flex and extend at the wrist. Reports intermittent numbness and tingling that is positional in the fingers. Able to flex and extend, pronation and supinate the elbow as well but is limited due to pain. 45 degrees FF and ABD. Radial pulse intact. Assessment & Plan Assessment & Plan (1) Fracture of neck of left humerus: Onset Date: ~05/31/23 Code(s): S42.212A - Unspecified displaced fracture of surgical neck of left humerus, initial encounter for closed fracture Qualifiers: Encounter type: initial encounter Fracture type: closed Qualified Code(s): S42.212A - Unspecified displaced fracture of surgical neck of left humerus, initial encounter for closed fracture Plan Ms. Shepard is a 53-year-old right hand dominant female who presents in the office today for a follow up of a left humeral neck fracture, which occurred on 05/31/2023 status post a mechanical fall injuring her left shoulder and elbow. I last saw the patient in the office on 07/13/2023. At this time she was instructed to come out of the sling to work on gentle ROM and to continue to work with PT. She was given an out of work until follow up in 6 weeks. A prescription for Naproxen 500 mg TID PRN was sent to the pharmacy. While in the office today the patient reports she fell last night, 07/27/2023. She states she was taking a Naproxen with no relief. She states she found relief with edible taffy. She confirms participating in physical therapy and states it is giving her mild relief. 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 Patient will continue to work with physical therapy to work on her ROM. Her goals will be to reach the top of her head to wash her hair, reach her mouth to feed herself, and to reach behind for hygiene. Follow up will be in 6 weeks, or sooner if needed. X-rays of the right shoulder which were obtained while in the office today and were reviewed by me, Tiffany Camarillo PA-C, revealed routine healing of a left humeral neck fracture. Orders: Orders XR shoulder LT min 2V 07/28/23 M25.519 - Pain in unspecified shoulder Patient Instructions: Scribed by Kacie Hastings medical laboratory specialist, for Tiffany Camarillo PA-C on 07/28/2023 at 1:33 pm, EST. Coding Level of Care Code Global (00568) Diagnoses Closed fracture of neck of left humerus, initial encounter S42.212A Encounter type: initial encounter Fracture type: closed
== END 2023-07-28 14:10 | disposition home or self-care (01) ==
PROVIDERS: PCP Internal Medicine; Visit Provider Physician Assistant
DX: S42.212A Unspecified displaced fracture of surgical neck of left humerus, initial encounter for closed fracture (principal)
CPT/HCPCS: 99213

== ENCOUNTER 2023-08-20 10:24 | Outpatient (AMB) | payer OTHER, SELFPAY ==
[2023-08-20 10:26] VITALS: BP 144/92; PULSE 96; BMI 35.8
--- NOTE | 2023-08-20 10:26 | A.OFFVIS_ITS ---
Vital Signs 08/20/23 10:26 Height 5 ft 5 in Weight 215 lb 2.738 oz BMI 35.8 BP 144/92 H Blood Pressure Location Rt brachial Position Sitting Pulse 96 Intake Visit Reasons: 6 week follow up Intake Note: Berenice presents to in office visit today in 6 weeks follow up. CC: Patient reports doing well with new medications and denies any new GI symptoms. Nursing Educator Required: No Accompanied by: Self / Same As Patient Allergies niacin [Niaspan Extended-Release] Allergy (Intermediate, Verified 08/20/23 10:29) skin blisters tramadol Allergy (Intermediate, Verified 08/20/23 10:29) seizures barley [BARLEY] Allergy (Unknown, Verified 08/20/23 10:29) UNKNOWN fluticasone [Advair Diskus] Allergy (Unknown, Verified 08/20/23 10:29) Shortness of Breath ibuprofen Allergy (Unknown, Verified 08/20/23 10:29) Swelling naratriptan Allergy (Unknown, Verified 08/20/23 10:29) unknown Penicillins [PENICILLINS] Allergy (Unknown, Verified 08/20/23 10:29) Unknown sumatriptan Allergy (Unknown, Verified 08/20/23 10:29) unknown trazodone [TRAZODONE] Allergy (Unknown, Verified 08/20/23 10:29) UNKNOWN equate cough drops sugar free Allergy (Mild, Uncoded 06/02/23 15:46) Unknown HPI HPI 6 week follow up: Details: Assessment & Plan (1) GERD (gastroesophageal reflux disease): Code(s): K21.9 - Gastro-esophageal reflux disease without esophagitis (2) Diverticulitis: Code(s): K57.92 - Diverticulitis of intestine, part unspecified, without perforation or abscess without bleeding (3) Anemia: Code(s): D64.9 - Anemia, unspecified (4) Left sided abdominal pain: Code(s): R10.9 - Unspecified abdominal pain Plan Her insurance changed and she wants to go back on Dexilant instead of famotidine. Her diarrhea that she was seen in the ER for has resolved. She wants to go back on the ?red pill which I think might be Colace along with her simethicone gas pill. We tried Linzess but this just gave her too much diarrhea at all doses. She has been having a pain in the left mid abd since she fell. This is not r/t eating or moving her bowels, but more to movement and bending. She wants to be sent to [facility], and I advise her to speak with her PCP about this. Return office visit in 6 weeks and I will get an abdominal x-ray to try to explore her complaint but since this was after a trauma I really do not think this is necessarily GI mediated. It is possible that is trapped gas and she should not her simethicone Orders: Orders EGD/[place] Combo - GI Use Only Today D64.9 - Anemia, unspecified, K57.92 - Diverticulitis of intestine, part unspecified, without perforation or abscess without bleeding XR abdomen w decubitus Today R10.9 - Unspecified abdominal pain Medications: New dexlansoprazole (Dexilant) 60 mg PO DAILY 30 days 30 caps 6RF K21.9 - Gastro- esophageal reflux disease without esophagitis peg 3350-electrolytes 236-22.74-6.74 -5.86 gram (Golytely) until fecal effluent is clear; do not exceed a total volume of 2,000 mL 240 mL PO Q10M 1 day 4,000 mL 0RF Z12.11 - Encounter for screening for malignant neoplasm of colon bisacodyl (Dulcolax (bisacodyl)) 10 mg (2 x 5 mg) PO BEDTIME 2 days 4 tabs 0RF docusate sodium (Colace) 100 mg PO .DAILY WITH FOOD 30 days 30 caps 6RF simethicone after meals 180 mg PO QID 30 days 120 caps 6RF . EGD/COLONOSCOPY SCHEDULED FOR 11/05/2023 BIOPSY X-RAY OF THE ABDOMEN 07/14/23 FINDINGS: Large amount of stool in the colon. Nonobstructive bowel gas pattern. Degenerative changes in the imaged thoracolumbar spine. Sclerotic focus overlying the left iliac wing better characterized on CT scan of April 28, 2023. XR/XR abdomen w decubitus IMPRESSION: Large amount of stool in the colon. Nonobstructive bowel gas pattern. TODAY'S VISIT She is doing well now. The Colace was not helpful and she ended up going in buying [id number] bisacodyl which I think is the pill she was trying to describe to me. She would received 4 for the colonoscopy prep but I will extend this prescription so she can use it daily. She is now doing very well on her simethicone and her Dexilant. With this and the bisacodyl she is quite satisfied with her GI regimen. Return office visit in October after her colonoscopy [facility] Medical History (Updated 07/09/23 @ 12:35 by DOT Horn) Anemia Bronchitis due to COVID-19 virus COVID Acute pneumonia Work related injury Acute diarrhea Paresthesias in left hand Dysuria PFO (patent foramen ovale) Shortness of breath Community acquired pneumonia Hospital discharge follow-up Chronic idiopathic constipation Pre-op examination Encounter for routine gynecological examination LFT elevation Encounter for general adult medical examination with abnormal findings Respiratory tract congestion with cough Hospital discharge follow-up COVID-19 Tracheobronchitis COVID-19 Other specified hypothyroidism Colon cancer screening Iron deficiency anemia Shoulder pain, right Nausea and vomiting PFO (patent foramen ovale) History of transesophageal echocardiography (LAN) Colitis Abnormal angiogram of head COVID-19 Asthma Thyroid disease GERD (gastroesophageal reflux disease) Anemia Aneurysm Surgical History History of surgery of uterus H/O endoscopy History of H/O brain surgery History of colonoscopy Family History Father Diabetes Arthritis Diverticulitis Leukemia Mental health disorder Lung cancer Mother Anemia Arthritis Colon polyps Myocardial infarction Brother Crohn's disease Testicular cancer Brother Cancer Paternal Grandfather Leukemia Other Substance use disorder Social History Household Members: Significant Other Housing: House Are you a primary out of school hours care worker to a significant other at home: No Do you presently have visiting nurse or other home services: No Alcohol intake: former Patient Tobacco Use Status: Former Tobacco user Tobacco use type: Cigarette e-Cigarette/Vaping Use: Never Used Advance Directives Date on File: 04/09/21 service: No 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al status: employed 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: [employer]/ right hand dominant Cognitive needs: No Hearing needs: No Vision needs: Yes Review of Systems Const Denies fatigue, Denies fever(s), Denies night sweats, Denies poor appetite and Denies weight loss ENT Reports Normal hearing present, Denies dental pain, Denies dysphagia, Denies hearing loss, Denies mouth pain, Denies odynophagia, Denies throat swelling, Denies tongue swelling and Reports other (Dentition adequate) Card Reports no additional complaints Resp Reports no additional complaints GI Details: Denies abdominal pain, Denies melena, Reports bloating, Denies hematochezia, Reports constipation, Denies GI cramping, Denies dysphagia, Denies excessive flatus, Denies early satiety, Reports heartburn, Denies diarrhea, Denies nausea, Denies odynophagia, Denies vomiting and Denies hematemesis Skin/Breast Denies pruritus, Denies lesions, Denies rash and Denies jaundice Neuro Reports Normal hearing present and Denies Abnormal speech present Endo Denies fatigue Aller/Immun Denies throat swelling and Denies tongue swelling Physical Exam Vital Signs: Last Vital Signs Pulse 96 08/20/23 10:26 BP 144/92 H 08/20/23 10:26 BMI result Body Mass Index 35.8 Const General: cooperative, no acute distress, well developed and well groomed Nutritional Appearance: well nourished and obese Orientation/consciousness: oriented to person, oriented to place and oriented to time Limitations: No language barrier HEENT Head: Yes normocephalic and Yes atraumatic Eyes General: appearance normal, both eyes and all related structures Pupils: Equal, round and reactive pupils present Neck Neck: Yes normal visual inspection and Yes no lymphadenopathy Thyroid: Thyroid normal Resp Effort & Inspection: normal respiratory effort and able to speak in complete sentences Auscultation: clear to auscultation bilaterally Cardio Rate: regular rate Rhythm: regular rhythm Heart sounds: Normal, physiologic split S2 sound present Peripheral pulses: radial pulses present and posterior tibial pulses present GI Inspection: No distended, Yes Abdominal panniculus present and Yes obesity Palpation (GI): Soft to palpation, nontender, no guarding, not rigid and No hepatosplenomegaly present Percussion: Yes normal to percussion Auscultation: normal bowel sounds Rectal Exam - Female: deferred Skin General skin exam: no rashes or lesions noted, turgor normal, skin not dry, no jaundice, No spider nevi and no striae Rashes: no rashes Nails: normal Neuro General: oriented to person, oriented to place and oriented to time Cranial nerves: Yes Equal, round and reactive pupils present and Yes Normal hearing present Speech: No Abnormal speech present Extrem General: Yes normal to inspection, No clubbing, No cyanosis and No edema Psych Appearance: grossly normal and well kempt Mental Status: mental status grossly normal Speech and movement: Normal speech and movement present Affect: normal affect Attitude: cooperative Thought process: Normal thought process present and not confabulating Thought content: Normal thought content present Insight: Fair insight present (Psych) Judgement: Fair judgement present (Psych) Assessment & Plan Assessment & Plan (1) Chronic idiopathic constipation: Code(s): K59.04 - Chronic idiopathic constipation Category: Medical (2) Diverticulitis: Code(s): K57.92 - Diverticulitis of intestine, part unspecified, without perforation or abscess without bleeding Category: Medical (3) GERD (gastroesophageal reflux disease): Code(s): K21.9 - Gastro-esophageal reflux disease without esophagitis Category: Medical Plan She is doing well now. The Colace was not helpful and she ended up going in buying [id number] bisacodyl which I think is the pill she was trying to describe to me. She would received 4 for the colonoscopy prep but I will extend this prescription so she can use it daily. She is now doing very well on her simethicone and her Dexilant. With this and the bisacodyl she is quite satisfied with her GI regimen. Return office visit in October after her colonoscopy . EGD/COLONOSCOPY SCHEDULED FOR 11/05/2023 BIOPSY Medications: Changed From bisacodyl (Dulcolax (bisacodyl)) 10 mg (2 x 5 mg) PO BEDTIME 2 days 4 tabs 0RF K59.04 - Chronic idiopathic constipation To bisacodyl (Dulcolax (bisacodyl)) 10 mg (2 x 5 mg) PO BEDTIME 60 tabs 6RF 30 days K59.04 - Chronic idiopathic constipation Discontinued docusate sodium (Colace) Discontinued Reason: Doctor's Order 100 mg PO .DAILY WITH FOOD 30 days 30 caps 6RF Coding Level of Care Code Est Pt Level 3 (37819) Diagnoses Chronic idiopathic constipation K59.04 Diverticulitis K57.92 GERD (gastroesophageal reflux disease) K21.9
== END 2023-08-20 10:47 | disposition home or self-care (01) ==
PROVIDERS: Visit Provider Nurse Practitioner
DX: K59.04 Chronic idiopathic constipation (principal); K57.92 Diverticulitis of intestine, part unspecified, without perforation or abscess without bleeding; K21.9 Gastro-esophageal reflux disease without esophagitis
CPT/HCPCS: 99213

== ENCOUNTER → 2023-08-20 10:24 | Outpatient (BNVA) | payer OTHER, SELFPAY | PROVIDERS: Visit Provider Nurse Practitioner | DX: K59.04 Chronic idiopathic constipation (principal); K57.92 Diverticulitis of intestine, part unspecified, without perforation or abscess without bleeding; K21.9 Gastro-esophageal reflux disease without esophagitis | CPT/HCPCS: 99212 ==

== ENCOUNTER 2023-08-25 08:58 | Outpatient (REF) | payer OTHER, SELFPAY | END 2023-08-25 08:59 | disposition home or self-care (01) | LOC: HO.HOSX 08:58 | PROVIDERS: Visit Provider Physician Assistant | DX: Z13.89 Encounter for screening for other disorder (principal) ==

== ENCOUNTER 2023-08-27 08:37 | Outpatient (AMB) | payer OTHER, SELFPAY ==
--- NOTE | 2023-08-27 09:01 | MHC.PC.OV ---
Intake Visit Reasons: Discuss Meds~ [phone] Allergies niacin [Niaspan Extended-Release] Allergy (Intermediate, Verified 08/27/23 09:04) skin blisters tramadol Allergy (Intermediate, Verified 08/27/23 09:04) seizures barley [BARLEY] Allergy (Unknown, Verified 08/27/23 09:04) UNKNOWN fluticasone [Advair Diskus] Allergy (Unknown, Verified 08/27/23 09:04) Shortness of Breath ibuprofen Allergy (Unknown, Verified 08/27/23 09:04) Swelling naratriptan Allergy (Unknown, Verified 08/27/23 09:04) unknown Penicillins [PENICILLINS] Allergy (Unknown, Verified 08/27/23 09:04) Unknown sumatriptan Allergy (Unknown, Verified 08/27/23 09:04) unknown trazodone [TRAZODONE] Allergy (Unknown, Verified 08/27/23 09:04) UNKNOWN equate cough drops sugar free Allergy (Mild, Uncoded 06/02/23 15:46) Unknown Medication List - Last Reconciled 08/27/23 by Thee Tay MD dexlansoprazole (Dexilant) 60 mg PO DAILY 90 days doxycycline monohydrate 100 mg PO BID fluticasone propion-salmeterol 230-21 mcg/actuation (Advair HFA) 2 puffs inhalation Q12H 30 days fluticasone propionate 50 mcg/actuation (Flonase Allergy Relief) 2 sprays intranasal BID 30 days ipratropium-albuterol 0.5 mg-3 mg(2.5 mg base)/3 mL 3 mL inhalation Q4-6H PRN 30 days levothyroxine 175 mcg PO QAM 90 days lidocaine 5% (Lidoderm) 1 patch topical DAILY loratadine 10 mg PO DAILY 30 days meclizine 25 mg PO TID PRN 30 days montelukast 10 mg PO DAILY naproxen 500 mg PO TID omalizumab (Xolair) 150 mg subcut Q4W peg 3350-electrolytes 236-22.74-6.74 -5.86 gram (Golytely) 240 mL PO Q10M 1 day ProAir HFA 90 mcg/actuation (albuterol sulfate) 2 puffs inhalation Q4H NS simethicone 180 mg PO QID 30 days Tobacco use date assessed: 08/27/23 Dental Screening Dental Screen Date: 08/27/23 Did you have a dental visit in the last 12 months?: Yes Did you have a dental problem in the last 6 months where you did not have access to dental care?: No Was dental information given to patient?: Patient has dentist HPI Discuss Meds~ [phone] HPI Details Patient is a 53-year-old female this is a telemedicine visit Patient is feeling very overwhelmed due to domestic stress She is also dealing with numerous health issues In May patient tripped and fell and had fracture of her left shoulder bone, she is under care by [facility] orthopedic Patient says that she is feeling very depressed and would like to be restarted on medication she was taking in the past She did well with Wellbutrin in the past I have sent the script Patient is to start taking 1 tablet in the morning I have also sent message to our behavior health coordinator so we can set up patient with the therapist. We will follow-up on this in 3 weeks. [facility] Medical History Anemia Bronchitis due to COVID-19 virus COVID Acute pneumonia Work related injury Acute diarrhea Paresthesias in left hand Dysuria PFO (patent foramen ovale) Shortness of breath Community acquired pneumonia Hospital discharge follow-up Chronic idiopathic constipation Pre-op examination Encounter for routine gynecological examination LFT elevation Encounter for general adult medical examination with abnormal findings Respiratory tract congestion with cough Hospital discharge follow-up COVID-19 Tracheobronchitis COVID-19 Other specified hypothyroidism Colon cancer screening Iron deficiency anemia Shoulder pain, right Nausea and vomiting PFO (patent foramen ovale) History of transesophageal echocardiography (LAN) Colitis Abnormal angiogram of head COVID-19 Asthma Thyroid disease GERD (gastroesophageal reflux disease) Anemia Aneurysm Surgical History History of surgery of uterus H/O endoscopy History of H/O brain surgery History of colonoscopy Family History Father Diabetes Arthritis Diverticulitis Leukemia Mental health disorder Lung cancer Mother Anemia Arthritis Colon polyps Myocardial infarction Brother Crohn's disease Testicular cancer Brother Cancer Paternal Grandfather Leukemia Other Substance use disorder Social History Household Members: Significant Other Housing: House Are you a primary manager critical care unit to a significant other at home: No Do you presently have visiting nurse or other home services: No Alcohol intake: former Patient Tobacco Use Status: Former Tobacco user Tobacco use type: Cigarette e-Cigarette/Vaping Use: Never Used Advance Directives Date on File: 04/09/21 service: No 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al status: employed 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: [employer]/ right hand dominant Cognitive needs: No Hearing needs: No Vision needs: Yes Questionnaire Thrive Questionnaire Date Thrive assessed: 05/28/23 AUDIT C Alcohol Use Questionnaire (AUDIT-C) 1. How often do you have a drink containing alcohol?: Never 3. How often do you have six or more drinks on one occasion?: Never Total Score: 0 Score Reviewed/Action Taken: Yes MARKO-7 AMB Questionnaire MARKO-7 Date MARKO - 7 assessed: 05/28/23 Source: Developed by Drs. Masood Arredondo, Lesly Pruitt, Thor Del Cid and colleagues, with an educational phil from [employer]. Review of Systems Const Denies chills and Denies fever(s) ENT Denies epistaxis and Denies nasal discharge Card Denies chest pain Resp Denies chest congestion, Denies cough and Denies hemoptysis GI Denies diarrhea and Denies nausea Skin/Breast Denies rash Neuro Reports no additional complaints Psych Reports no additional complaints Endo Reports no additional complaints Physical exam (Primary Care) Tobacco/Smoking Status: Tobacco use Status Tobacco use date assessed 08/27/23 08/27/23 09:05 Patient Tobacco Use Status Former Tobacco user 08/27/23 09:05 Tobacco use type Cigarette 08/27/23 09:05 e-Cigarette/Vaping Use Never Used 08/27/23 09:05 Thrive Assessment: Date of Thrive Assessment Date Thrive assessed 05/28/23 08/27/23 09:05 Telehealth Telehealth Telehealth Platform: [facility] Location of provider rendering services: practice address Location of patient: address on file Patient Identification confirmed using: Name, : Yes Telehealth method: voice only Patient verbally consented to treatment: Yes Patient verbally consented to billing insurance company: Yes Patient informed of any privacy concerns related to visit: Yes Minutes spent on Phone/Video with Pt.: 14 Assessment and Plan Assessment & Plan (1) Stress at home: Code(s): F43.9 - Reaction to severe stress, unspecified (2) Major depression, recurrent: Code(s): F33.9 - Major depressive disorder, recurrent, unspecified Qualifiers: Active/Remission status: currently active Major depression episode severity: moderate Qualified Code(s): F33.1 - Major depressive disorder, recurrent, moderate (3) Fracture of neck of left humerus: Onset Date: ~05/31/23 Code(s): S42.212A - Unspecified displaced fracture of surgical neck of left humerus, initial encounter for closed fracture Qualifiers: Encounter type: initial encounter Fracture type: closed Qualified Code(s): S42.212A - Unspecified displaced fracture of surgical neck of left humerus, initial encounter for closed fracture Plan Patient is a 53-year-old female this is a telemedicine visit Patient is feeling very overwhelmed due to domestic stress She is also dealing with numerous health issues In May patient tripped and fell and had fracture of her left shoulder bone, she is under care by [facility] orthopedic Patient says that she is feeling very depressed and would like to be restarted on medication she was taking in the past She did well with Wellbutrin in the past I have sent the script Patient is to start taking 1 tablet in the morning I have also sent message to our behavior health coordinator so we can set up patient with the therapist. We will follow-up on this in 3 weeks. Medications: New bupropion HCl SR (Wellbutrin SR) 150 mg PO QAM 30 tabs 0RF Coding Level of Care Code Tele Est Pt Level 3 (91355) Diagnoses Stress at home F43.9 Moderate episode of recurrent major depressive disorder F33.1 Active/Remission status: currently active Major depression episode severity: moderate Closed fracture of neck of left humerus, initial encounter S42.212A Encounter type: initial encounter Fracture type: closed
== END 2023-08-27 09:51 | disposition home or self-care (01) ==
LOC: HO.HMGC 08:37
PROVIDERS: Visit Provider Internal Medicine
DX: F43.9 Reaction to severe stress, unspecified (principal); F33.1 Major depressive disorder, recurrent, moderate; S42.212A Unspecified displaced fracture of surgical neck of left humerus, initial encounter for closed fracture
CPT/HCPCS: 99213

== ENCOUNTER 2023-09-08 10:18 | Outpatient (REF) | payer OTHER, SELFPAY ==
--- NOTE | ~2023-09-08 | XR_ITS ---
EXAMINATION: XR SHOULDER, LEFT CLINICAL INFORMATION: Pain in left shoulder. COMPARISON: Multiple prior radiographs most recent 07/28/2023. TECHNIQUE: AP external rotation, Grashey, scapular Y, and axillary views of the left shoulder. FINDINGS: Mildly displaced and angulated proximal humerus fracture redemonstrated. No change in alignment There is remodeling of the previously noted calcification with the fracture line less distinct compared to prior indicative of progressing healing. Mild arthrosis of the acromioclavicular joint. XR/XR shoulder LT min 2V IMPRESSION: 1. Healing proximal humerus fracture. 2. Mild arthrosis of the acromioclavicular joint.
== END 2023-09-08 10:19 | disposition home or self-care (01) ==
LOC: HO.HOSX 10:18
PROVIDERS: Visit Provider Physician Assistant
DX: M19.012 Primary osteoarthritis, left shoulder (principal)
CPT/HCPCS: 73030; 99212

== ENCOUNTER 2023-09-08 13:44 | Outpatient (AMB) | payer OTHER, SELFPAY ==
--- NOTE | 2023-09-08 14:02 | A.OFFVIS_ITS ---
Intake Visit Reasons: ov- LT shoulder pain-w/xray Intake Note: Berenice is a 53 year old right hand dominant female who presents today for a follow up of left humeral neck fx, DOI 05/31/23. Patient reports that she continues to have pain, stating some days are worse than others. Limited ROM. Finds little to no relief with icing and naproxen. Allergies niacin [Niaspan Extended-Release] Allergy (Intermediate, Verified 09/08/23 14:05) skin blisters tramadol Allergy (Intermediate, Verified 09/08/23 14:05) seizures barley [BARLEY] Allergy (Unknown, Verified 09/08/23 14:05) UNKNOWN fluticasone [Advair Diskus] Allergy (Unknown, Verified 09/08/23 14:05) Shortness of Breath ibuprofen Allergy (Unknown, Verified 09/08/23 14:05) Swelling naratriptan Allergy (Unknown, Verified 09/08/23 14:05) unknown Penicillins [PENICILLINS] Allergy (Unknown, Verified 09/08/23 14:05) Unknown sumatriptan Allergy (Unknown, Verified 09/08/23 14:05) unknown trazodone [TRAZODONE] Allergy (Unknown, Verified 09/08/23 14:05) UNKNOWN equate cough drops sugar free Allergy (Mild, Uncoded 09/08/23 14:05) Unknown HPI HPI ov- LT shoulder pain-w/xray: Details: 53-year-old right hand dominant female who presents in the office today for a follow up of a left humeral neck fracture, which occurred on 05/31/2023 status post a mechanical fall injuring her left shoulder and elbow. I last saw the patient in the office on 07/28/2023 when she was encouraged to continue to work with PT. While in the office today the patient reports she continues to have pain with some days being worse than others. She confirms a limited ROM. She finds no symptom relief with icing or Naproxen. 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 [facility] Medical History Anemia Bronchitis due to COVID-19 virus COVID Acute pneumonia Work related injury Acute diarrhea Paresthesias in left hand Dysuria PFO (patent foramen ovale) Shortness of breath Community acquired pneumonia Hospital discharge follow-up Chronic idiopathic constipation Pre-op examination Encounter for routine gynecological examination LFT elevation Encounter for general adult medical examination with abnormal findings Respiratory tract congestion with cough Hospital discharge follow-up COVID-19 Tracheobronchitis COVID-19 Other specified hypothyroidism Colon cancer screening Iron deficiency anemia Shoulder pain, right Nausea and vomiting PFO (patent foramen ovale) History of transesophageal echocardiography (LAN) Colitis Abnormal angiogram of head COVID-19 Asthma Thyroid disease GERD (gastroesophageal reflux disease) Anemia Aneurysm Surgical History History of surgery of uterus H/O endoscopy History of H/O brain surgery History of colonoscopy Family History Father Diabetes Arthritis Diverticulitis Leukemia Mental health disorder Lung cancer Mother Anemia Arthritis Colon polyps Myocardial infarction Brother Crohn's disease Testicular cancer Brother Cancer Paternal Grandfather Leukemia Other Substance use disorder Social History Household Members: Significant Other Housing: House Are you a primary ocular care technician to a significant other at home: No Do you presently have visiting nurse or other home services: No Alcohol intake: former Patient Tobacco Use Status: Former Tobacco user Tobacco use type: Cigarette e-Cigarette/Vaping Use: Never Used Advance Directives Date on File: 04/09/21 service: No 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al status: employed 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: [employer]/ right hand dominant Cognitive needs: No Hearing needs: No Vision needs: Yes Review of Systems Const All systems reviewed & are unremarkable except as noted in HPI and below Physical Exam Const General: cooperative, healthy appearing and no acute distress Resp Effort & Inspection: normal respiratory effort and able to speak in complete sentences Cardio Rate: regular rate Peripheral pulses: Peripheral pulses 2+ throughout GI Palpation (GI): Soft to palpation Skin Lesions: no lesions Rashes: no rashes Extrem Other: Left shoulder: Forward flexion and abduction to 50 degrees. External rotation to neutral. Patient is still having difficulty reaching over her head and reaching her back pocket. NVI. Assessment & Plan Assessment & Plan (1) Fracture of neck of left humerus: Onset Date: ~05/31/23 Code(s): S42.212A - Unspecified displaced fracture of surgical neck of left humerus, initial encounter for closed fracture Category: Medical Qualifiers: Encounter type: initial encounter Fracture type: closed Qualified Code(s): S42.212A - Unspecified displaced fracture of surgical neck of left humerus, initial encounter for closed fracture Plan Ms. Ng is a 53-year-old right hand dominant female who presents in the office today for a follow up of a left humeral neck fracture, which occurred on 05/31/2023 status post a mechanical fall injuring her left shoulder and elbow. I last saw the patient in the office on 07/28/2023 when she was encouraged to continue to work with PT. While in the office today the patient reports she continues to have pain with some days being worse than others. She confirms a limited ROM. She finds no symptom relief with icing or Naproxen. 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 Patient is still having difficulty reaching over her head and reaching her back pocket. She is attending physical therapy and I would encourage her to continue to work on ROM and maybe begin strengthening at this time. Patient was also tearful on today?s exam. She expressed concern about returning back to work. I do not feel the patient is ready to return to work safely. She is battling with some psychological difficulties regarding the events around her injury. She reports she is having continuous nightmares about falling and hurting herself. 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 I supplied the patient with the phone number for [facility]. A stat referral was made in the office today. Patient was provided with an out of work note until till follow up. Follow up will be in 8 weeks, or sooner if needed. X-rays of the left shoulder which were obtained while in the office today and were reviewed by me, Tiffany Camarillo PA-C, revealed routine healing of a left humeral neck fracture. Orders: Orders XR shoulder LT min 2V Today M25.519 - Pain in unspecified shoulder Referrals Counseling Referral F33.1 - Major depressive disorder, recurrent, moderate, F43.9 - Reaction to severe stress, unspecified Patient Instructions: Scribed by Kacie Hastings medical secretary, for Tiffany Camarillo PA-C on 09/08/2023 at 2:11 pm, EST. Coding Level of Care Code Est Pt Level 3 (51286) Diagnoses Closed fracture of neck of left humerus, initial encounter S42.212A Encounter type: initial encounter Fracture type: closed
== END 2023-09-08 15:09 | disposition home or self-care (01) ==
PROVIDERS: PCP Internal Medicine; Visit Provider Physician Assistant
DX: S42.212A Unspecified displaced fracture of surgical neck of left humerus, initial encounter for closed fracture (principal)
CPT/HCPCS: 99213

== ENCOUNTER 2023-09-30 11:13 | Outpatient (AMB) | payer OTHER, SELFPAY ==
--- NOTE | 2023-09-30 11:33 | MHC.PC.OV ---
Intake Visit Reasons: Depression anxiety Allergies niacin [Niaspan Extended-Release] Allergy (Intermediate, Verified 09/08/23 14:05) skin blisters tramadol Allergy (Intermediate, Verified 09/08/23 14:05) seizures barley [BARLEY] Allergy (Unknown, Verified 09/08/23 14:05) UNKNOWN fluticasone [Advair Diskus] Allergy (Unknown, Verified 09/08/23 14:05) Shortness of Breath ibuprofen Allergy (Unknown, Verified 09/08/23 14:05) Swelling naratriptan Allergy (Unknown, Verified 09/08/23 14:05) unknown Penicillins [PENICILLINS] Allergy (Unknown, Verified 09/08/23 14:05) Unknown sumatriptan Allergy (Unknown, Verified 09/08/23 14:05) unknown trazodone [TRAZODONE] Allergy (Unknown, Verified 09/08/23 14:05) UNKNOWN equate cough drops sugar free Allergy (Mild, Uncoded 09/08/23 14:05) Unknown Medication List - Last Reconciled 09/30/23 by Thee Tay MD bisacodyl (Dulcolax (bisacodyl)) 10 mg (2 x 5 mg) PO BEDTIME 30 days bupropion HCl SR (Wellbutrin SR) 150 mg PO QAM dexlansoprazole (Dexilant) 60 mg PO DAILY 90 days doxycycline monohydrate 100 mg PO BID fluticasone propion-salmeterol 230-21 mcg/actuation (Advair HFA) 2 puffs inhalation Q12H 30 days fluticasone propionate 50 mcg/actuation (Flonase Allergy Relief) 2 sprays intranasal BID 30 days ipratropium-albuterol 0.5 mg-3 mg(2.5 mg base)/3 mL 3 mL inhalation Q4-6H PRN 30 days levothyroxine 175 mcg PO QAM 90 days lidocaine 5% (Lidoderm) 1 patch topical DAILY loratadine 10 mg PO DAILY 30 days meclizine 25 mg PO TID PRN 30 days montelukast 10 mg PO DAILY naproxen 500 mg PO TID omalizumab (Xolair) 150 mg subcut Q4W peg 3350-electrolytes 236-22.74-6.74 -5.86 gram (Golytely) 240 mL PO Q10M 1 day ProAir HFA 90 mcg/actuation (albuterol sulfate) 2 puffs inhalation Q4H NS simethicone 180 mg PO QID 30 days Tobacco use date assessed: 08/27/23 Dental Screening Dental Screen Date: 08/27/23 HPI Depression anxiety HPI Details Patient is 55 year old female This is a?daily medicine follow appointment Patient verbalized feeling very depressed last time, and due to that reason she has started smoking. Patient have severe COPD. And is on number of inhalers, she is established with a product test specialist. I started her on Wellbutrin 150 mg hoping that it will improve her mood as well as help her quit smoking again. Patient is tolerating medication, she is feeling better but she continues to smoke. She has started therapy and is going to [facility],?patient says that she will be referred to a smoking cessation program through [facility]. I'm increasing her toes to Wellbutrin 300 mg meanwhile. We will book another follow-up appointment in 3 weeks. [facility] Medical History Anemia Bronchitis due to COVID-19 virus COVID Acute pneumonia Work related injury Acute diarrhea Paresthesias in left hand Dysuria PFO (patent foramen ovale) Shortness of breath Community acquired pneumonia Hospital discharge follow-up Chronic idiopathic constipation Pre-op examination Encounter for routine gynecological examination LFT elevation Encounter for general adult medical examination with abnormal findings Respiratory tract congestion with cough Hospital discharge follow-up COVID-19 Tracheobronchitis COVID-19 Other specified hypothyroidism Colon cancer screening Iron deficiency anemia Shoulder pain, right Nausea and vomiting PFO (patent foramen ovale) History of transesophageal echocardiography (LAN) Colitis Abnormal angiogram of head COVID-19 Asthma Thyroid disease GERD (gastroesophageal reflux disease) Anemia Aneurysm Surgical History History of surgery of uterus H/O endoscopy History of H/O brain surgery History of colonoscopy Family History Father Diabetes Arthritis Diverticulitis Leukemia Mental health disorder Lung cancer Mother Anemia Arthritis Colon polyps Myocardial infarction Brother Crohn's disease Testicular cancer Brother Cancer Paternal Grandfather Leukemia Other Substance use disorder Social History Household Members: Significant Other Housing: House Are you a primary daycare provider to a significant other at home: No Do you presently have visiting nurse or other home services: No Alcohol intake: former Patient Tobacco Use Status: Former Tobacco user Tobacco use type: Cigarette e-Cigarette/Vaping Use: Never Used Advance Directives Date on File: 04/09/21 service: No 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al status: employed 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: [employer]/ right hand dominant Cognitive needs: No Hearing needs: No Vision needs: Yes Questionnaire Thrive Questionnaire Date Thrive assessed: 05/28/23 MARKO-7 AMB Questionnaire MARKO-7 Date MARKO - 7 assessed: 05/28/23 Source: Developed by Drs. Masood Arredondo, Lesly Pruitt, Thor Del Cid and colleagues, with an educational phil from [employer]. Review of Systems Const Denies chills and Denies fever(s) ENT Denies epistaxis and Denies nasal discharge Card Denies chest pain Resp Denies chest congestion, Denies cough and Denies hemoptysis GI Denies diarrhea and Denies nausea Skin/Breast Denies rash Neuro Reports no additional complaints Psych Reports no additional complaints Endo Reports no additional complaints Physical exam (Primary Care) Tobacco/Smoking Status: Tobacco use Status Tobacco use date assessed 08/27/23 09/30/23 11:33 Patient Tobacco Use Status Former Tobacco user 09/30/23 11:33 Tobacco use type Cigarette 09/30/23 11:33 e-Cigarette/Vaping Use Never Used 09/30/23 11:33 Thrive Assessment: Date of Thrive Assessment Date Thrive assessed 05/28/23 09/30/23 11:33 Telehealth Telehealth Telehealth Platform: [facility] Location of provider rendering services: practice address Location of patient: address on file Patient Identification confirmed using: Name, : Yes Telehealth method: video (attempted) Patient verbally consented to treatment: Yes Patient verbally consented to billing insurance company: Yes Patient informed of any privacy concerns related to visit: Yes Assessment and Plan Assessment & Plan (1) Major depression, recurrent: Code(s): F33.9 - Major depressive disorder, recurrent, unspecified Qualifiers: Active/Remission status: currently active Major depression episode severity: moderate Qualified Code(s): F33.1 - Major depressive disorder, recurrent, moderate (2) Stress at home: Code(s): F43.9 - Reaction to severe stress, unspecified (3) Tobacco use disorder: Code(s): F17.200 - Nicotine dependence, unspecified, uncomplicated Plan Patient is 55 year old female This is a?daily medicine follow appointment Patient verbalized feeling very depressed last time, and due to that reason she has started smoking. Patient have severe COPD. And is on number of inhalers, she is established with a product test specialist. I started her on Wellbutrin 150 mg hoping that it will improve her mood as well as help her quit smoking again. Patient is tolerating medication, she is feeling better but she continues to smoke. She has started therapy and is going to [facility],?patient says that she will be referred to a smoking cessation program through [facility]. I'm increasing her toes to Wellbutrin 300 mg meanwhile. We will book another follow-up appointment in 3 weeks. Medications: New bupropion HCl XL (Wellbutrin XL) 300 mg PO QAM 30 tabs 0RF Coding Level of Care Code Tele Est Pt Level 3 (87472) Diagnoses Moderate episode of recurrent major depressive disorder F33.1 Active/Remission status: currently active Major depression episode severity: moderate Stress at home F43.9 Tobacco use disorder F17.200
== END 2023-09-30 12:18 | disposition home or self-care (01) ==
LOC: HO.HMGC 11:13
PROVIDERS: Visit Provider Internal Medicine
DX: F33.1 Major depressive disorder, recurrent, moderate (principal); F43.9 Reaction to severe stress, unspecified; F17.210 Nicotine dependence, cigarettes, uncomplicated
CPT/HCPCS: 99213

== ENCOUNTER 2023-10-02 11:10 | Outpatient (AMB) | payer OTHER, SELFPAY ==
[2023-10-02 11:18] VITALS: BP 118/82; PULSE 85; O2SAT 96; BMI 35.8
--- NOTE | 2023-10-02 11:18 | MHC.OFFVIS ---
Vital Signs 10/02/23 11:18 Height 5 ft 5 in Weight 214 lb 15.211 oz BMI 35.8 BP 118/82 Blood Pressure Location Lt brachial Position Sitting Pulse 85 Pulse Source Doppler Pulse Oximetry (%) 96 Oxygen Delivery Method Room Air Intake Visit Reasons: Asthma Allergies niacin [Niaspan Extended-Release] Allergy (Intermediate, Verified 10/02/23 11:22) skin blisters tramadol Allergy (Intermediate, Verified 10/02/23 11:22) seizures barley [BARLEY] Allergy (Unknown, Verified 10/02/23 11:22) UNKNOWN fluticasone [Advair Diskus] Allergy (Unknown, Verified 10/02/23 11:22) Shortness of Breath ibuprofen Allergy (Unknown, Verified 10/02/23 11:22) Swelling naratriptan Allergy (Unknown, Verified 10/02/23 11:22) unknown Penicillins [PENICILLINS] Allergy (Unknown, Verified 10/02/23 11:22) Unknown sumatriptan Allergy (Unknown, Verified 10/02/23 11:22) unknown trazodone [TRAZODONE] Allergy (Unknown, Verified 10/02/23 11:22) UNKNOWN equate cough drops sugar free Allergy (Mild, Uncoded 09/08/23 14:05) Unknown HPI HPI Asthma: Details: 53-year-old lady, nonsmoker, followed for underlying severe persistent asthma with allergic component. She continues to use Xolair, Symbicort, duo nebs, and albuterol MDI with good control of her underlying symptoms. However, over the last several months she has had multiple issues with pharmacy in delivering her medications, so she has not been using them consistently and thus her symptoms are not as well controlled. [facility] Medical History Anemia Bronchitis due to COVID-19 virus COVID Acute pneumonia Work related injury Acute diarrhea Paresthesias in left hand Dysuria PFO (patent foramen ovale) Shortness of breath Community acquired pneumonia Hospital discharge follow-up Chronic idiopathic constipation Pre-op examination Encounter for routine gynecological examination LFT elevation Encounter for general adult medical examination with abnormal findings Respiratory tract congestion with cough Hospital discharge follow-up COVID-19 Tracheobronchitis COVID-19 Other specified hypothyroidism Colon cancer screening Iron deficiency anemia Shoulder pain, right Nausea and vomiting PFO (patent foramen ovale) History of transesophageal echocardiography (LAN) Colitis Abnormal angiogram of head COVID-19 Asthma Thyroid disease GERD (gastroesophageal reflux disease) Anemia Aneurysm Surgical History History of surgery of uterus H/O endoscopy History of H/O brain surgery History of colonoscopy Family History Father Diabetes Arthritis Diverticulitis Leukemia Mental health disorder Lung cancer Mother Anemia Arthritis Colon polyps Myocardial infarction Brother Crohn's disease Testicular cancer Brother Cancer Paternal Grandfather Leukemia Other Substance use disorder Social History (Updated 10/02/23 @ 11:24 by Jaki Lucas Marilyn) Household Members: Significant Other Housing: House Are you a primary long term care administrator to a significant other at home: No Do you presently have visiting nurse or other home services: No Alcohol intake: former Patient Tobacco Use Status: Current everyday Tobacco user Tobacco use type: Cigarette Cigarettes Per Day: 10 e-Cigarette/Vaping Use: Never Used Advance Directives Date on File: 04/09/21 service: No 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al status: employed 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: [employer]/ right hand dominant Cognitive needs: No Hearing needs: No Vision needs: Yes Review of Systems Const Denies daytime sleepiness, Denies excessive sweating, Denies fatigue, Denies fever(s), Denies lethargy, Denies malaise, Denies night sweats, Denies snoring and Denies weight loss Eyes Denies blurry vision and Denies itchy eyes ENT Denies nasal congestion, Denies post nasal drip, Denies sinus pain, Denies sinus pressure and Denies other ( Thrush) Card Denies chest pain, Denies pedal edema, Denies dyspnea, Denies orthopnea and Denies paroxysmal nocturnal dyspnea Resp Denies cough, Denies hemoptysis, Denies excessive phlegm production, Denies dyspnea, Denies snoring and Denies wheezing GI Denies abdominal pain and Denies heartburn Musc Denies myalgias, Denies arthralgias and Denies joint swelling Skin/Breast Denies rash Neuro Denies memory loss and Denies seizure-like activity Psych Denies abnormal sleep pattern, Denies anxiety and Denies memory loss Endo Denies excessive sweating, Denies fatigue and Denies heat intolerance Denny/Lymph Denies easy bruising Aller/Immun Denies itchy eyes, Denies seasonal rhinorrhea and Denies wheezing Physical Exam Vital Signs: Last Vital Signs Pulse 85 10/02/23 11:18 BP 118/82 10/02/23 11:18 Pulse Ox 96 10/02/23 11:18 Oxygen Delivery Method Room Air 10/02/23 11:18 BMI result Body Mass Index 35.8 Const General: no acute distress and alert Nutritional Appearance: not obese Orientation/consciousness: Other orientation findings ( oriented) HEENT Head: Yes atraumatic Eyes General: appearance normal, both eyes and all related structures Sclerae: sclerae normal EOM: EOMs intact bilaterally Neck Neck: Yes supple Lymphatic: no lymphadenopathy noted Resp Effort & Inspection: normal respiratory effort and no use of accessory muscles Auscultation: clear to auscultation bilaterally Cardio Rate: regular rate Rhythm: regular rhythm Heart sounds: no gallops, no murmurs and no rubs Skin General skin exam: other ( warm) Extrem General: No clubbing, No cyanosis and No edema Assessment & Plan Assessment & Plan (1) Severe persistent allergic asthma: Code(s): J45.50 - Severe persistent asthma, uncomplicated Category: Medical Plan: Baseline well controlled on Xolair, Advair, and albuterol MDI. Continue current regimen. Recent issues with medication delivery secondary to pharmacy delays resulting in suboptimal control of symptoms. (2) Environmental allergies: Code(s): Z91.09 - Other allergy status, other than to drugs and biological substances Category: Medical Plan: Well controlled on Xolair. Continue current regimen. Coding Level of Care Code Est Pt Level 4 (91125) Diagnoses Severe persistent allergic asthma J45.50 Environmental allergies Z91.09
== END 2023-10-02 11:41 | disposition home or self-care (01) ==
PROVIDERS: PCP Internal Medicine; Visit Provider Internal Medicine Pulmonary Disease
DX: J45.50 Severe persistent asthma, uncomplicated (principal); Z91.09 Other allergy status, other than to drugs and biological substances
CPT/HCPCS: 99214

== ENCOUNTER → 2023-10-02 11:10 | Outpatient (BNVA) | payer OTHER, SELFPAY | PROVIDERS: PCP Internal Medicine; Visit Provider Internal Medicine Pulmonary Disease | DX: J45.50 Severe persistent asthma, uncomplicated (principal); Z91.09 Other allergy status, other than to drugs and biological substances | CPT/HCPCS: 99212 ==

== ENCOUNTER 2023-10-06 15:08 | Outpatient (AMB) | payer OTHER, SELFPAY ==
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
== END 2023-10-06 16:41 | disposition home or self-care (01) ==
LOC: HO.HOP 15:08
PROVIDERS: PCP Internal Medicine; Visit Provider Clinical Nurse Specialist Psychiatric/Mental Health
DX: F41.0 Panic disorder [episodic paroxysmal anxiety] (principal); F33.1 Major depressive disorder, recurrent, moderate; F43.10 Post-traumatic stress disorder, unspecified; F60.3 Borderline personality disorder; F40.01 Agoraphobia with panic disorder
CPT/HCPCS: 90792

== ENCOUNTER → 2023-10-06 15:08 | Outpatient (BNVA) | payer OTHER, SELFPAY | PROVIDERS: PCP Internal Medicine; Visit Provider Clinical Nurse Specialist Psychiatric/Mental Health | DX: F33.1 Major depressive disorder, recurrent, moderate (principal); F40.01 Agoraphobia with panic disorder; F43.10 Post-traumatic stress disorder, unspecified; F60.3 Borderline personality disorder | CPT/HCPCS: 90792 ==

== ENCOUNTER 2023-10-16 08:00 | Outpatient (RCR) | payer OTHER, SELFPAY ==
[2023-08-20 10:07] VITALS: BP 144/96; PULSE 95; RESP 20; TEMP 36.4; O2SAT 98
[2023-08-20] MEDS: Omalizumab 150 MG/ML SYRINGE 300 MG SUBCUT (10:12)
[2023-09-17 09:29] VITALS: BP 125/83; PULSE 79; RESP 16; TEMP 36.9; O2SAT 97
[2023-09-17] MEDS: Omalizumab 150 MG/ML SYRINGE 300 MG SUBCUT (09:32)
[2023-10-16 07:59] VITALS: BMI 34.9
[2023-10-16 08:01] VITALS: BP 143/83; PULSE 79; RESP 18; TEMP 36.6; O2SAT 97
[2023-10-16] MEDS: Omalizumab 150 MG/ML SYRINGE 300 MG SUBCUT (08:06)
== END 2023-12-29 14:48 | disposition home or self-care (01) ==
LOC: HO.INF 08:00
PROVIDERS: Visit Provider Internal Medicine Pulmonary Disease
DX: J45.50 Severe persistent asthma, uncomplicated (principal)
CPT/HCPCS: 96372; J2357

== ENCOUNTER 2023-10-16 08:23 | Emergency (ER) | payer OTHER, SELFPAY ==
[2023-10-16] VITALS (8 sets, daily range): BP systolic 127–166; BP diastolic 58–85; PULSE 67–81; RESP 14–21; TEMP 36.3–36.7; O2SAT 97–98; BMI 34.9
[2023-10-16] MEDS: EPINEPHrine 1 MG/ML VIAL 0.3 MG IM (08:46)
[2023-10-16] MEDS: diphenhydrAMINE HCL 50 MG/ML VIAL 25 MG IVPUSH (08:47)
[2023-10-16] MEDS: methylPREDNISolone Sod Succ 125 MG/2 ML VIAL IVPUSH (08:47)
[2023-10-16] MEDS: Famotidine/PF 20 MG/2 ML VIAL IVPUSH (08:47)
--- NOTE | 2023-10-16 08:48 | ED.ALLEREA ---
HPI - Allergic Reaction General Chief complaint: Allergic Reaction Stated complaint: reaction to injection Time Seen by Provider: 10/16/23 08:30 Source: patient and old records reviewed Mode of arrival: ambulatory Limitations: no limitations History of Present Illness ED Provider: GEETA BOLAÑOS narrative: 53 yo female with PMH of anxiety, PTSD, borderline personality disorder, GERD, asthma who receives Xolair injections and has been doing so for 2 years. Today was in pulm clinic and received injection 20 min later c/o raspy voice and throat closing this has never happened before. Referred to ER by Dr. Ambrosio. complaint: allergic reaction Onset (ago): minute(s) (just [employer]PER[employer]) Exposure: medication Symptoms: difficulty swallowing, difficulty breathing and hoarseness Severity: severe Treatment prior to arrival: none Previous Allergic Reaction History: anaphylaxis Related Data Home Medications ?Medication ?Instructions ?Recorded ?Confirmed omalizumab 150 mg subcutaneous 150 mg subcut Q4W 10/29/22 10/08/23 solution (Xolair) Previous Rx's ?Medication ?Instructions ?Recorded lidocaine 5 % topical patch 1 patch topical DAILY #15 ea 04/11/23 (Lidoderm) loratadine 10 mg tablet 10 mg PO DAILY 30 days #30 tabs 05/19/23 peg 3350-electrolytes 236 240 ml PO Q10M 1 day #4,000 mL 07/09/23 gram-22.74 gram-6.74 gram-5.86 gram solution (Golytely) naproxen 500 mg tablet 500 mg PO TID #90 tabs 09/07/23 bisacodyl 5 mg tablet,delayed 10 mg (2 x 5 mg) PO BEDTIME 30 09/29/23 release (Dulcolax (bisacodyl)) days #60 tabs dexlansoprazole 60 mg 60 mg PO DAILY 90 days #90 caps 09/29/23 capsule,biphase delayed release (Dexilant) simethicone 180 mg capsule 180 mg PO QID 30 days #120 caps 09/29/23 bupropion HCl 300 mg 24 hr tablet, 300 mg PO QAM #30 tabs 09/30/23 extended release (Wellbutrin XL) fluticasone propionate 230 2 puff inhalation Q12H 30 days #12 09/30/23 mcg-salmeterol 21 mcg/actuation grams HFA inhaler (Advair HFA) ipratropium 0.5 mg-albuterol 3 mg 3 ml inhalation Q4-6H PRN wheezing 09/30/23 (2.5 mg base)/3 mL nebulization 30 days #270 mL soln Ventolin HFA 90 mcg/actuation 2 puff inhalation Q4H #18 grams 10/06/23 aerosol inhaler (albuterol sulfate) fluticasone propionate 50 2 spray intranasal BID 90 days #16 10/06/23 mcg/actuation nasal grams spray,suspension (Flonase Allergy Relief) levothyroxine 175 mcg tablet 175 mcg PO QAM 90 days #90 tabs 10/06/23 lorazepam 0.5 mg tablet 0.5 mg PO DAILY PRN anxiety #30 10/06/23 tabs montelukast 10 mg tablet 10 mg PO DAILY #90 tabs 10/06/23 oxcarbazepine 150 mg tablet 75 mg (1/2 x 150 mg) PO .COMPLEX 10/06/23 (Trileptal) #30 tabs epinephrine 0.3 mg/0.3 mL 0.3 mg (0.3 mL) IM Q10M PRN 10/16/23 injection, auto-injector anaphylaxis #2 ea Allergies Allergy/AdvReac Type Severity Reaction Status Date / Time niacin Allergy Intermediate skin Verified 10/16/23 08:29 [Niaspan Extended-Release] blisters tramadol Allergy Intermediate seizures Verified 10/16/23 08:29 barley [BARLEY] Allergy Unknown UNKNOWN Verified 10/16/23 08:29 fluticasone [Advair Diskus] Allergy Unknown Shortness Verified 10/16/23 08:29 of Breath ibuprofen Allergy Unknown Swelling Verified 10/16/23 08:29 naratriptan Allergy Unknown unknown Verified 10/16/23 08:29 Penicillins [PENICILLINS] Allergy Unknown Unknown Verified 10/16/23 08:29 sumatriptan Allergy Unknown unknown Verified 10/16/23 08:29 trazodone [TRAZODONE] Allergy Unknown UNKNOWN Verified 10/16/23 08:29 equate cough drops sugar free Allergy Mild Unknown Uncoded 09/08/23 14:05 Review of Systems Review of Systems: Constitutional : No Fever, No Chills ENT/Mouth : positive oral swelling, pos Hoarseness, pos Swallowing Difficulty Eyes: No Eye Pain, No Swelling, No Redness Cardiovascular : No Chest Pain, No SOB Respiratory : No Cough, No Sputum, No Wheezing, No Smoke Exposure, No Dyspnea Gastrointestinal : No Nausea, No Vomiting, No Diarrhea, No abdominal Pain Genitourinary : No Dysuria, No Urinary Frequency, No Hematuria Musculoskeletal : No joint pain, No Myalgias, No Joint Swelling Skin : No Skin Lesions, no rash Neuro : No Weakness, No Numbness, No Headache Psych : No Anxiety/Panic, No Depression Heme/Lymph: No Bruising, No Lymphadenopathy Endocrine : No Polyuria, No Polydipsia All other systems reviewed and are negative [facility] Past Medical History Attestation statement: The following information was validated with the patient. Source: old records reviewed Medical History Anemia Bronchitis due to COVID-19 virus COVID Acute pneumonia Work related injury Acute diarrhea Paresthesias in left hand Dysuria PFO (patent foramen ovale) Shortness of breath Community acquired pneumonia Hospital discharge follow-up Chronic idiopathic constipation Pre-op examination Encounter for routine gynecological examination LFT elevation Encounter for general adult medical examination with abnormal findings Respiratory tract congestion with cough Hospital discharge follow-up COVID-19 Tracheobronchitis COVID-19 Other specified hypothyroidism Colon cancer screening Iron deficiency anemia Shoulder pain, right Nausea and vomiting PFO (patent foramen ovale) History of transesophageal echocardiography (LAN) Colitis Abnormal angiogram of head COVID-19 Asthma Thyroid disease GERD (gastroesophageal reflux disease) Anemia Aneurysm Surgical History History of surgery of uterus H/O endoscopy History of H/O brain surgery History of colonoscopy Family History Family History Father Diabetes Arthritis Diverticulitis Leukemia Mental health disorder Lung cancer Mother Anemia Arthritis Colon polyps Myocardial infarction Brother Crohn's disease Testicular cancer Brother Cancer Paternal Grandfather Leukemia Other Substance use disorder Social History Social History Household Members: Significant Other Housing: House Are you a primary toddler caregiver to a significant other at home: No Do you presently have visiting nurse or other home services: No Alcohol intake: former Patient Tobacco Use Status: Current everyday Tobacco user Tobacco use type: Cigarette Cigarettes Per Day: 10 e-Cigarette/Vaping Use: Never Used Advance Directives: Yes Advance Directives on File: Yes Advance Directives Date on File: 04/09/21 Do you have a plan to hurt others: No Plan service: No 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al status: employed 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: [employer]/ right hand dominant Cognitive needs: No Hearing needs: No Vision needs: Yes Physical Exam ED Vital Signs: Vital Signs - 24 hr 10/16/23 08:26 10/16/23 08:35 10/16/23 08:46 Temperature 98.1 F 97.9 F Pulse Rate 75 76 72 Respiratory Rate 18 14 Blood Pressure 166/85 H 139/85 139/85 Pulse Oximetry 98 98 Oxygen Delivery Method Room Air Room Air 10/16/23 08:53 10/16/23 09:28 10/16/23 10:16 Temperature Pulse Rate 75 67 81 Respiratory Rate 21 H 17 16 Blood Pressure 129/80 139/73 127/58 L Pulse Oximetry 97 98 97 Oxygen Delivery Method Room Air Room Air Room Air 10/16/23 10:44 10/16/23 10:53 Temperature 97.3 F Pulse Rate 77 77 Respiratory Rate 19 19 Blood Pressure 128/67 128/67 Pulse Oximetry 97 97 Oxygen Delivery Method Room Air Room Air BMI result Body Mass Index 34.9 Appearance: Alert. Oriented X3. No acute distress. Eyes: Pupils equal, round and reactive to light. ENT: Pharynx normal. no angioedema no stridor but has hoarse voice and states she cannot fully swallow her drink Neck: Normal inspection. Neck supple. CVS: Normal heart rate and rhythm. Pulses normal. Respiratory: No respiratory distress. Breath sounds normal. Abdomen: Soft and nontender. Skin: Skin warm and dry. Normal skin color. Normal skin turgor. Extremities: No lower extremity edema. No calf ttp Neuro: Oriented X 3. No motor deficit. No sensory deficit. Course Course Course Narrative: improving after epi Reevaluation(s) Reevaluation #1: no recurrence at 2 hours stable for DC Medications Administered Discontinued Medications Generic Name Dose Route Start Last Admin Trade Name Freq PRN Reason Stop Dose Admin Diphenhydramine HCl 25 mg 10/16/23 08:34 10/16/23 08:47 Diphenhydramine Hcl 50 Mg/Ml Vial IVPUSH 10/16/23 08:35 25 mg ONCE ONE Administration Epinephrine 0.3 mg 10/16/23 08:34 10/16/23 08:46 Epinephrine 1 Mg/Ml Vial IM 10/16/23 08:35 0.3 mg STAT STA Administration Famotidine 20 mg 10/16/23 08:34 10/16/23 08:47 Famotidine/Pf 20 Mg/2 Ml Vial IVPUSH 10/16/23 08:35 20 mg ONCE ONE Administration Methylprednisolone Sodium Succinate 125 mg 10/16/23 08:34 10/16/23 08:47 Methylprednisolone Sod Succ 125 Mg/2 Ml Vial IVPUSH 10/16/23 08:35 125 mg ONCE ONE Administration Ondansetron HCl 4 mg 10/16/23 08:54 10/16/23 09:03 Ondansetron Hcl 4 Mg/2 Ml Vial IVPUSH 10/16/23 08:55 4 mg ONCE ONE Administration Medical Decision Making Medical Decision Making MDM Narrative: 53 yo female with PMH of anxiety, PTSD, borderline personality disorder, GERD, asthma here with c/o raspy voice difficulty swallowing at this time will need IM epi, steroids, benadryl and pepcid no signs of oral swelling will monitor and observe Differential Diagnosis Differential Diagnoses: The differential diagnosis associated with the presentation includes allergic reaction Admission/Observation Consideration of admission/observation: Escalation of care including admission/observation considered observe x 2 hours for clinical improvement Independent Historian Clinical information obtained from an independent historian. History obtained from or confirmed by: Other (Dr. Ambrosio called ahead) External Record Review External record reviewed: Inpatient record and Office record Prescription Management I considered prescription management with: Other Critical Care Time Critical Care Time Critical Care Time: Yes Total Critical Care Time: 35 Attestation: IM epi, observation, anaphylaxis management I attest to this time spent taking care of the patient Discharge Plan Discharge Clinical Impression: Anaphylaxis Qualifiers: Encounter type: initial encounter Qualified Code(s): T78.2XXA - Anaphylactic shock, unspecified, initial encounter Patient Disposition: Home, Self-Care Instructions: General Allergic Reaction (ED) Additional Instructions: return for worsening symptoms or concerns carry epi pen with you at all times monitor breathing and throat today call 911 for any worsening of symptoms Prescriptions: New epinephrine 0.3 mg/0.3 mL auto-injector 0.3 mg IM Q10M PRN (Reason: anaphylaxis) Qty: 2 0RF Rx Instructions: for 2 doses No Action loratadine 10 mg tablet 10 mg PO DAILY 30 Days Qty: 30 6RF naproxen 500 mg tablet 500 mg PO TID Qty: 90 0RF dexlansoprazole [Dexilant] 60 mg capsule,biphase delayed releas 60 mg PO DAILY 90 Days Qty: 90 3RF simethicone 180 mg capsule 180 mg PO QID 30 Days Qty: 120 6RF Rx Instructions: after meals bisacodyl [Dulcolax (bisacodyl)] 5 mg tablet,delayed release (DR/EC) 10 mg PO BEDTIME 30 Days Qty: 60 3RF fluticasone propion-salmeterol [Advair HFA] 230-21 mcg/actuation HFA aerosol inhaler 2 puff inhalation Q12H 30 Days Qty: 12 6RF ipratropium-albuterol 0.5 mg-3 mg(2.5 mg base)/3 mL solution for nebulization 3 ml inhalation Q4-6H PRN (Reason: wheezing) 30 Days Qty: 270 6RF albuterol sulfate [Ventolin HFA] 90 mcg/actuation HFA aerosol inhaler 2 puff inhalation Q4H Qty: 18 0RF levothyroxine 175 mcg tablet 175 mcg PO QAM 90 Days Qty: 90 0RF montelukast 10 mg tablet 10 mg PO DAILY Qty: 90 0RF fluticasone propionate [Flonase Allergy Relief] 50 mcg/actuation spray,suspension 2 spray intranasal BID 90 Days Qty: 16 3RF Rx Instructions: administer into each nostril lidocaine [Lidoderm] 5 % adhesive patch,medicated 1 patch topical DAILY Qty: 15 0RF Rx Instructions: leave on most painful area for up to 12 hrs Xolair 150 mg recon soln 150 mg subcut Q4W bupropion HCl [Wellbutrin XL] 300 mg tablet extended release 24 hr 300 mg PO QAM Qty: 30 0RF peg 3350-electrolytes [Golytely] 236-22.74-6.74 -5.86 gram recon soln 240 ml PO Q10M 1 Days Qty: 4000 0RF Rx Instructions: until fecal effluent is clear; do not exceed a total volume of 2,000 mL oxcarbazepine [Trileptal] 150 mg tablet 75 mg PO .COMPLEX Qty: 30 1RF Rx Instructions: 75 mg orally take half tablet at bedtime x 10 days then take one tablet at bedtime; lorazepam 0.5 mg tablet 0.5 mg PO DAILY PRN (Reason: anxiety) Qty: 30 0RF Interventions: ED Discharge Assessment Last Done: 10/16/23 10:53 Discharge Date/Time: 10/16/23 10:54 Print Language: Spanish
--- NOTE | 2023-10-16 08:57 | PC.NURSE ---
Pt reports getting her monthly zolar shot today. Shortly after developed trouble swallowing, throat swelling , hoarse voice and lightheadedness. Pt has been getting this injection once a month for 2-3 years without incident. Pt able to speak in complete sentences, tolerating her secretions. Voice is hoarse, sating 98% on RA.
[2023-10-16] MEDS: ondansetron HCL 4 MG/2 ML VIAL IVPUSH (09:03)
--- NOTE | 2023-10-16 09:11 | PC.NURSE ---
Pt reports feeling better but still feels like something is stuck in her throat.
--- NOTE | 2023-10-16 09:53 | PC.NURSE ---
Pt ambulatory to the BR with a steady gait.
== END 2023-10-16 10:54 | disposition home or self-care (01) ==
PROVIDERS: Emergency Provider Emergency Medicine; PCP Internal Medicine
DX: L50.0 Allergic urticaria (principal); R13.10 Dysphagia, unspecified; R06.02 Shortness of breath; Z79.899 Other long term (current) drug therapy
CPT/HCPCS: 96372; 96374; 96375; 99283; 99284; J0171; J1200; J2405; J2919

== ENCOUNTER 2023-10-20 13:32 | Outpatient (AMB) | payer OTHER, SELFPAY ==
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
== END 2023-10-20 14:17 | disposition home or self-care (01) ==
LOC: HO.HOP 13:32
PROVIDERS: PCP Internal Medicine; Visit Provider Clinical Nurse Specialist Psychiatric/Mental Health
DX: F51.5 Nightmare disorder (principal); F40.01 Agoraphobia with panic disorder; F60.3 Borderline personality disorder; F43.10 Post-traumatic stress disorder, unspecified; F33.1 Major depressive disorder, recurrent, moderate
CPT/HCPCS: 99215

== ENCOUNTER → 2023-10-20 13:32 | Outpatient (BNVA) | payer OTHER, SELFPAY | PROVIDERS: PCP Internal Medicine; Visit Provider Clinical Nurse Specialist Psychiatric/Mental Health | DX: F33.1 Major depressive disorder, recurrent, moderate (principal); F43.10 Post-traumatic stress disorder, unspecified; F40.01 Agoraphobia with panic disorder; F60.3 Borderline personality disorder; F51.5 Nightmare disorder | CPT/HCPCS: 99212 ==

== ENCOUNTER 2023-10-22 08:19 | Outpatient (AMB) | payer OTHER, SELFPAY ==
--- NOTE | 2023-10-22 09:07 | MHC.PC.OV ---
Intake Visit Reasons: 3 Wk F/u~ [phone] Allergies niacin [Niaspan Extended-Release] Allergy (Intermediate, Verified 10/22/23 09:08) skin blisters tramadol Allergy (Intermediate, Verified 10/22/23 09:08) seizures barley [BARLEY] Allergy (Unknown, Verified 10/22/23 09:08) UNKNOWN fluticasone [Advair Diskus] Allergy (Unknown, Verified 10/22/23 09:08) Shortness of Breath ibuprofen Allergy (Unknown, Verified 10/22/23 09:08) Swelling naratriptan Allergy (Unknown, Verified 10/22/23 09:08) unknown Penicillins [PENICILLINS] Allergy (Unknown, Verified 10/22/23 09:08) Unknown sumatriptan Allergy (Unknown, Verified 10/22/23 09:08) unknown trazodone [TRAZODONE] Allergy (Unknown, Verified 10/22/23 09:08) UNKNOWN omalizumab [From Xolair] Adverse Reaction (Severe, Verified 10/22/23 09:08) Anaphylaxis equate cough drops sugar free Allergy (Mild, Uncoded 09/08/23 14:05) Unknown Medication List - Last Reconciled 10/22/23 by Thee Tay MD bisacodyl (Dulcolax (bisacodyl)) 10 mg (2 x 5 mg) PO BEDTIME 30 days dexlansoprazole (Dexilant) 60 mg PO DAILY 90 days epinephrine 0.3 mg (0.3 mL) IM Q10M PRN eszopiclone (Lunesta) 1 mg PO BEDTIME fluticasone propion-salmeterol 230-21 mcg/actuation (Advair HFA) 2 puffs inhalation Q12H 30 days fluticasone propionate 50 mcg/actuation (Flonase Allergy Relief) 2 sprays intranasal BID 90 days ipratropium-albuterol 0.5 mg-3 mg(2.5 mg base)/3 mL 3 mL inhalation Q4-6H PRN 30 days levothyroxine 175 mcg PO QAM 90 days lidocaine 5% (Lidoderm) 1 patch topical DAILY loratadine 10 mg PO DAILY 30 days lorazepam 0.5 mg PO DAILY PRN montelukast 10 mg PO DAILY naproxen 500 mg PO TID oxcarbazepine (Trileptal) 75 mg (1/2 x 150 mg) PO DAILY peg 3350-electrolytes 236-22.74-6.74 -5.86 gram (Golytely) 240 mL PO Q10M 1 day simethicone 180 mg PO QID 30 days Ventolin HFA 90 mcg/actuation (albuterol sulfate) 2 puffs inhalation Q4H NS Tobacco use date assessed: 10/22/23 Dental Screening Dental Screen Date: 10/22/23 Did you have a dental visit in the last 12 months?: Yes Did you have a dental problem in the last 6 months where you did not have access to dental care?: No Was dental information given to patient?: Patient has dentist HPI 3 Wk F/u~ [phone] HPI Details Patient is a 53-year-old female this is a telemedicine conference Patient was feeling depressed last visit few weeks ago I increased her Wellbutrin to 300 mg We also sent message to our behavior health coordinator so we can get her in with psychiatrist Patient was able to see the psych nurse and her medications were adjusted She is not taking lorazepam 0.5 mg at night to sleep as needed because she was having nightmares And she is also taking oxcarbazepine 150 mg daily Patient says that she is feeling much better she was able to quit smoking. She will continue to follow-up with psych nurse. She offer no other complaints today [facility] Medical History Anemia Bronchitis due to COVID-19 virus COVID Acute pneumonia Work related injury Acute diarrhea Paresthesias in left hand Dysuria PFO (patent foramen ovale) Shortness of breath Community acquired pneumonia Hospital discharge follow-up Chronic idiopathic constipation Pre-op examination Encounter for routine gynecological examination LFT elevation Encounter for general adult medical examination with abnormal findings Respiratory tract congestion with cough Hospital discharge follow-up COVID-19 Tracheobronchitis COVID-19 Other specified hypothyroidism Colon cancer screening Iron deficiency anemia Shoulder pain, right Nausea and vomiting PFO (patent foramen ovale) History of transesophageal echocardiography (LAN) Colitis Abnormal angiogram of head COVID-19 Asthma Thyroid disease GERD (gastroesophageal reflux disease) Anemia Aneurysm Surgical History History of surgery of uterus H/O endoscopy History of H/O brain surgery History of colonoscopy Family History Father Diabetes Arthritis Diverticulitis Leukemia Mental health disorder Lung cancer Mother Anemia Arthritis Colon polyps Myocardial infarction Brother Crohn's disease Testicular cancer Brother Cancer Paternal Grandfather Leukemia Other Substance use disorder Social History Household Members: Significant Other Housing: House Are you a primary lead care manager to a significant other at home: No Do you presently have visiting nurse or other home services: No Alcohol intake: former Patient Tobacco Use Status: Current everyday Tobacco user Tobacco use type: Cigarette Cigarettes Per Day: 10 e-Cigarette/Vaping Use: Never Used Advance Directives Date on File: 04/09/21 service: No 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al status: employed 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: [employer]/ right hand dominant Cognitive needs: No Hearing needs: No Vision needs: Yes Questionnaire Thrive Questionnaire Date Thrive assessed: 05/28/23 AUDIT C Alcohol Use Questionnaire (AUDIT-C) 1. How often do you have a drink containing alcohol?: Never 3. How often do you have six or more drinks on one occasion?: Never Total Score: 0 Score Reviewed/Action Taken: Yes MARKO-7 AMB Questionnaire MARKO-7 Date MARKO - 7 assessed: 05/28/23 Source: Developed by Drs. Masood Arredondo, Lesly Pruitt, Thor Del Cid and colleagues, with an educational phil from [employer]. Review of Systems Const Denies chills and Denies fever(s) ENT Denies epistaxis and Denies nasal discharge Card Denies chest pain Resp Denies chest congestion, Denies cough and Denies hemoptysis GI Denies diarrhea and Denies nausea Skin/Breast Denies rash Neuro Reports no additional complaints Psych Reports no additional complaints Endo Reports no additional complaints Physical exam (Primary Care) Tobacco/Smoking Status: Tobacco use Status Tobacco use date assessed 10/22/23 10/22/23 09:09 Patient Tobacco Use Status Current everyday Tobacco 10/22/23 09:09 Tobacco use type Cigarette 10/22/23 09:09 e-Cigarette/Vaping Use Never Used 10/22/23 09:09 Thrive Assessment: Date of Thrive Assessment Date Thrive assessed 05/28/23 10/22/23 09:09 Telehealth Telehealth Telehealth Platform: [facility] Location of provider rendering services: practice address Location of patient: address on file Patient Identification confirmed using: Name, : Yes Telehealth method: voice only Patient verbally consented to treatment: Yes Patient verbally consented to billing insurance company: Yes Patient informed of any privacy concerns related to visit: Yes Minutes spent on Phone/Video with Pt.: 13 Assessment and Plan Assessment & Plan (1) Major depression, recurrent: Code(s): F33.9 - Major depressive disorder, recurrent, unspecified Qualifiers: Active/Remission status: currently active Major depression episode severity: moderate Qualified Code(s): F33.1 - Major depressive disorder, recurrent, moderate (2) Nightmares: Code(s): F51.5 - Nightmare disorder Plan Patient is a 53-year-old female this is a telemedicine video conference Patient was feeling depressed last visit few weeks ago I increased her Wellbutrin to 300 mg We also sent message to our behavior health coordinator so we can get her in with psychiatrist Patient was able to see the psych nurse and her medications were adjusted She is not taking lorazepam 0.5 mg at night to sleep as needed because she was having nightmares And she is also taking oxcarbazepine 150 mg daily Patient says that she is feeling much better she was able to quit smoking. She will continue to follow-up with psych nurse. She offer no other complaints today Coding Level of Care Code Tele Est Pt Level 3 (92279) Diagnoses Moderate episode of recurrent major depressive disorder F33.1 Active/Remission status: currently active Major depression episode severity: moderate Nightmares F51.5
== END 2023-10-22 11:28 | disposition home or self-care (01) ==
LOC: HO.HMGC 08:19
PROVIDERS: PCP Internal Medicine; Visit Provider Internal Medicine
DX: F33.1 Major depressive disorder, recurrent, moderate (principal); F51.5 Nightmare disorder
CPT/HCPCS: 99213

== ENCOUNTER 2023-10-30 13:02 | Outpatient (AMB) | payer OTHER, SELFPAY ==
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
== END 2023-10-30 15:14 | disposition home or self-care (01) ==
PROVIDERS: PCP Internal Medicine; Visit Provider Clinical Nurse Specialist Psychiatric/Mental Health
DX: F43.10 Post-traumatic stress disorder, unspecified (principal); F33.1 Major depressive disorder, recurrent, moderate; F60.3 Borderline personality disorder; F40.01 Agoraphobia with panic disorder; Z63.4 Disappearance and death of family member
CPT/HCPCS: 99214

== ENCOUNTER → 2023-10-30 13:02 | Outpatient (BNVA) | payer OTHER, SELFPAY | PROVIDERS: PCP Internal Medicine; Visit Provider Clinical Nurse Specialist Psychiatric/Mental Health | DX: F43.10 Post-traumatic stress disorder, unspecified (principal); F33.1 Major depressive disorder, recurrent, moderate; F60.3 Borderline personality disorder; F40.01 Agoraphobia with panic disorder; Z63.4 Disappearance and death of family member | CPT/HCPCS: 99212 ==

== ENCOUNTER 2023-11-05 08:46 | Day surgery (SDC) | payer OTHER, SELFPAY ==
--- NOTE | 2023-11-04 08:58 | HO.ANESPROP2 ---
Documented by User: Serena Miller NP 11/04/23 09:03 HPI - Anesthesia Eval Consult details Narrative: 53yo F for Upper Endoscopy and Colonoscopy 2022 w/u for PFO, ? CVA. Seen at [facility] structural heart clinic, but neuro hx unclear (TIA vs CVA vs migraine). No follow up information available and unable to reach pt. Pt was cleared to proceed with endo 12/2022. Cerebral aneurysm s/p coiling 2002 [facility] Active Problems Active Problems: All Active Problems Nightmares (Acute) Agoraphobia with panic attacks (Acute) Borderline personality disorder (Acute) Post traumatic stress disorder (PTSD) (Acute) Major depression, recurrent (Acute) Stress at home (Acute) Left sided abdominal pain (Acute) Anemia (Acute) Fracture of neck of left humerus (Acute ~05/31/23) Radiculitis of left cervical region (Acute) TMJ dysfunction (Acute) Tobacco use disorder (Acute) Diverticulitis (Acute) Chronic idiopathic constipation (Acute) Personal history of atrial septal defect (Acute) Abnormal EKG (Acute) Influenza A H1N1 infection (Acute) Chronic vertigo (Acute) Elevated fasting blood sugar (Acute) Abnormal mammogram of right breast (Acute) Morbid obesity due to excess calories (Acute) Knee pain, right (Acute) Sinusitis (Acute) Post-COVID syndrome (Acute) Memory changes (Acute) Chronic sinusitis (Acute) Bleeding hemorrhoids (Acute) Impingement syndrome of right shoulder (Acute) Shoulder pain (Acute) Sciatica, left side (Acute) Environmental allergies (Acute) Severe persistent allergic asthma (Acute) Immunizations incomplete (Acute) Hypothyroidism (Acute) Stool incontinence (Acute) Postmenopausal bleeding (Acute) Abdominal bloating (Acute) GERD (gastroesophageal reflux disease) (Acute) Past Medical History Medical History Anemia Bronchitis due to COVID-19 virus COVID Acute pneumonia Work related injury Acute diarrhea Paresthesias in left hand Dysuria PFO (patent foramen ovale) Shortness of breath Community acquired pneumonia Hospital discharge follow-up Chronic idiopathic constipation Pre-op examination Encounter for routine gynecological examination LFT elevation Encounter for general adult medical examination with abnormal findings Respiratory tract congestion with cough Hospital discharge follow-up COVID-19 Tracheobronchitis COVID-19 Other specified hypothyroidism Colon cancer screening Iron deficiency anemia Shoulder pain, right Nausea and vomiting PFO (patent foramen ovale) History of transesophageal echocardiography (LAN) Colitis Abnormal angiogram of head COVID-19 Asthma Thyroid disease GERD (gastroesophageal reflux disease) Anemia Aneurysm Family History Family History Father Diabetes Arthritis Diverticulitis Leukemia Mental health disorder Lung cancer Mother Anemia Arthritis Colon polyps Myocardial infarction Brother Crohn's disease Testicular cancer Brother Cancer Paternal Grandfather Leukemia Other Substance use disorder Family history of problems with anesthesia: No Surgical History Surgical History History of surgery of uterus H/O endoscopy History of H/O brain surgery History of colonoscopy History of Problems with Anesthesia: No Social History Social History Household Members: Significant Other Housing: House Are you a primary healthcare network consultant to a significant other at home: No Do you presently have visiting nurse or other home services: No Alcohol intake: former Patient Tobacco Use Status: Former Tobacco user Tobacco use type: Cigarette Cigarettes Per Day: 10 e-Cigarette/Vaping Use: Never Used Use of substances other than those prescribed or required for medical reasons: No Are you DNR?: No Advance Directives: No Advance Directives Information Provided: Yes Advance Directives Date on File: 04/09/21 service: No 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al status: employed 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: [employer]/ right hand dominant Cognitive needs: No Hearing needs: No Vision needs: Yes Meds Allergies Allergy/AdvReac Type Severity Reaction Status Date / Time niacin Allergy Intermediate skin Verified 10/22/23 09:08 [Niaspan Extended-Release] blisters tramadol Allergy Intermediate seizures Verified 10/22/23 09:08 barley [BARLEY] Allergy Unknown UNKNOWN Verified 10/22/23 09:08 fluticasone [Advair Diskus] Allergy Unknown Shortness Verified 10/22/23 09:08 of Breath ibuprofen Allergy Unknown Swelling Verified 10/22/23 09:08 naratriptan Allergy Unknown unknown Verified 10/22/23 09:08 Penicillins [PENICILLINS] Allergy Unknown Unknown Verified 10/22/23 09:08 sumatriptan Allergy Unknown unknown Verified 10/22/23 09:08 trazodone [TRAZODONE] Allergy Unknown UNKNOWN Verified 10/22/23 09:08 omalizumab [From Xolair] AdvReac Severe Anaphylaxis Verified 10/22/23 09:08 equate cough drops sugar free Allergy Mild Unknown Uncoded 09/08/23 14:05 Exam Pertinent Lab Results Pertinent Lab Results: Laboratory Tests 04/28/23 15:37 WBC 6.1 Hgb 13.8 Hct 40.7 Plt Count 205 Sodium 139 Potassium 3.7 Chloride 110 H Carbon Dioxide 20 L BUN 9 Creatinine 0.60 Narrative Narrative: EKG 02/2023 Vent. Rate : 076 BPM Atrial Rate : 076 BPM P-R Int : 158 ms QRS Dur : 086 ms QT Int : 384 ms P-R-T Axes : 031 -08 012 degrees QTc Int : 432 ms Normal sinus rhythm Normal ECG When compared with ECG of 26-JAN-2023 11:22, No significant change was found LAN 06/2022 Conclusion: ??? 1. Normal LV systolic and diastolic function 2. Small tunnels PFO with evidence of color Doppler flow across PFO at rest from left to right and with saline contrast after Valsalva showing small [id number] reversal 3. No intracardiac masses, thrombi, vegetations 4. Mild mitral regurgitation 5. Mild atherosclerotic changes noted in descending thoracic an arch of the aorta 6. No pericardial effusion Assessment and Plan Assessment Anesthesia Assessment: Chart Reviewed Final Anesthetic Review Family History of Problems with Anesthesia: No History of Problems with Anesthesia: No Documented by User: Juan Jose Orosco MD 11/05/23 09:30 [facility] Past Medical History Medical History Anemia Bronchitis due to COVID-19 virus COVID Acute pneumonia Work related injury Acute diarrhea Paresthesias in left hand Dysuria PFO (patent foramen ovale) Shortness of breath Community acquired pneumonia Hospital discharge follow-up Chronic idiopathic constipation Pre-op examination Encounter for routine gynecological examination LFT elevation Encounter for general adult medical examination with abnormal findings Respiratory tract congestion with cough Hospital discharge follow-up COVID-19 Tracheobronchitis COVID-19 Other specified hypothyroidism Colon cancer screening Iron deficiency anemia Shoulder pain, right Nausea and vomiting PFO (patent foramen ovale) History of transesophageal echocardiography (LAN) Colitis Abnormal angiogram of head COVID-19 Asthma Thyroid disease GERD (gastroesophageal reflux disease) Anemia Aneurysm Family History Family History Father Diabetes Arthritis Diverticulitis Leukemia Mental health disorder Lung cancer Mother Anemia Arthritis Colon polyps Myocardial infarction Brother Crohn's disease Testicular cancer Brother Cancer Paternal Grandfather Leukemia Other Substance use disorder Surgical History Surgical History History of surgery of uterus H/O endoscopy History of H/O brain surgery History of colonoscopy Social History Social History Household Members: Significant Other Housing: House Are you a primary healthcare network consultant to a significant other at home: No Do you presently have visiting nurse or other home services: No Alcohol intake: former Patient Tobacco Use Status: Former Tobacco user Tobacco use type: Cigarette Cigarettes Per Day: 10 e-Cigarette/Vaping Use: Never Used Use of substances other than those prescribed or required for medical reasons: No Are you DNR?: No Advance Directives: No Advance Directives Information Provided: Yes Advance Directives Date on File: 04/09/21 service: No 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al status: employed 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: [employer]/ right hand dominant Cognitive needs: No Hearing needs: No Vision needs: Yes Meds Allergies Allergy/AdvReac Type Severity Reaction Status Date / Time niacin Allergy Intermediate skin Verified 10/22/23 09:08 [Niaspan Extended-Release] blisters tramadol Allergy Intermediate seizures Verified 10/22/23 09:08 barley [BARLEY] Allergy Unknown UNKNOWN Verified 10/22/23 09:08 fluticasone [Advair Diskus] Allergy Unknown Shortness Verified 10/22/23 09:08 of Breath ibuprofen Allergy Unknown Swelling Verified 10/22/23 09:08 naratriptan Allergy Unknown unknown Verified 10/22/23 09:08 Penicillins [PENICILLINS] Allergy Unknown Unknown Verified 10/22/23 09:08 sumatriptan Allergy Unknown unknown Verified 10/22/23 09:08 trazodone [TRAZODONE] Allergy Unknown UNKNOWN Verified 10/22/23 09:08 omalizumab [From Xolair] AdvReac Severe Anaphylaxis Verified 10/22/23 09:08 equate cough drops sugar free Allergy Mild Unknown Uncoded 09/08/23 14:05 Exam Airway Mallampati Class: III TM Dist: >3cm Neck ROM: Full Denture: Upper and Lower Assessment and Plan Assessment Anesthesia Assessment: Anesthesia Plan Discussed Final Anesthetic Review NPO: Yes ASA Class: III Final Preanesthetic Review: No Changes in Pt Med Stat, Meds/Allgs Chart Reviewed, Consent Obtained/Reviewed and Anes Risks/Benef Reviewed Patient Risk: Intermediate Procedure Risk: Low Anesthetic Plan Anesthetic Plan: TIVA Disposition: Standard PACU
[2023-11-05 09:12] VITALS: BP 130/79; PULSE 78; RESP 16; TEMP 36.2; O2SAT 98; BMI 36.3
--- NOTE | 2023-11-05 09:20 | MHC.SHP ---
Pre-Procedural Eval Section A - 24 Hr Update-Section A only Date of Service: 11/05/23 Section B - Complete if H&P > 30 days Chief Complaint: abnormal bowel habit and GERD Relevant Family History (Specify if Yes): No Relevant Social History: None Present Medications: see Short Stay Collaborative assessment Medical History: Significant History (Anemia Bronchitis due to COVID-19 virus COVID Acute pneumonia Work related injury Acute diarrhea Paresthesias in left hand Dysuria PFO (patent foramen ovale) Shortness of breath Community acquired pneumonia Hospital discharge follow-up Chronic idiopathic constipation Pre-op examination Encounter for) History of Previous Operations: Relevant previous surgery/procedure and date(s) ( History of surgery of uterus H/O endoscopy History of H/O brain surgery History of colonoscopy) Allergies: Allergies Allergy/AdvReac Type Severity Reaction Status Date / Time niacin Allergy Intermediate skin Verified 10/22/23 09:08 [Niaspan Extended-Release] blisters tramadol Allergy Intermediate seizures Verified 10/22/23 09:08 barley [BARLEY] Allergy Unknown UNKNOWN Verified 10/22/23 09:08 fluticasone [Advair Diskus] Allergy Unknown Shortness Verified 10/22/23 09:08 of Breath ibuprofen Allergy Unknown Swelling Verified 10/22/23 09:08 naratriptan Allergy Unknown unknown Verified 10/22/23 09:08 Penicillins [PENICILLINS] Allergy Unknown Unknown Verified 10/22/23 09:08 sumatriptan Allergy Unknown unknown Verified 10/22/23 09:08 trazodone [TRAZODONE] Allergy Unknown UNKNOWN Verified 10/22/23 09:08 omalizumab [From Xolair] AdvReac Severe Anaphylaxis Verified 10/22/23 09:08 equate cough drops sugar free Allergy Mild Unknown Uncoded 09/08/23 14:05 Review of Systems Sugical H&P ROS: Negative: Constitution, Cardiovascular, Respiratory, Neurological, Psychiatric, Hem-Onc, Allergic/Immunologic, Gastrointestinal, Genitourinary, Musculoskeletal, Integumentary, Endocrine and Eyes/Ears/Nose/Throat Exam Surgical H&P Exam: Normal: HEENT, Normal: Heart, Normal: Lungs, Normal: Extremities, Normal: Abdomen, Normal: Skin and Normal: Neurological Plan Diagnosis/Plan: Unchanged I have reviewed the history and physical and performed a pertinent physical examination on my patient. No changes have occurred unless specified. Time Spent With Patient Time: Total time managing care of this patient today ____ minutes.
[2023-11-05] MEDS: Lactated Ringers 1,000 ML 100 ML IVCONT (09:22)
--- NOTE | 2023-11-05 10:49 | P.OPN-COLO_ITS ---
Colonoscopy Operative Note Operative Note Date of Service: 11/05/23 Narrative: Operative Information Procedure Description: EGD, Colonoscopy Indication: abn bowel habits, GERD Anesthesia: MAC FLEXIBLE TRANSORAL UPPER GASTROINTESTINAL ENDOSCOPY AND COLONOSCOPY PROCEDURE NOTE UPPER ENDOSCOPY Consent: Indications for the procedure and potential complications of bleeding, perforation, reaction to medications and missed diagnosis were discussed with the patient and informed consent was obtained. Instrument: Olympus GIF H 190 J mid size upper endoscope Monitoring: Vital signs and clinical assessment, continuous EKG monitoring, Pulse oximetry, Carbon Dioxide monitoring and blood pressure monitoring were done throughout the procedure. Procedure: The patient was placed in the left lateral decubitis position and pre-procedure medications were administered and a bite block was placed. The endoscope was inserted into the mouth and advanced under direct vision to the third part of duodenum. A careful inspection was made as the upper endoscope was withdrawn including a retroflexed examination of the proximal stomach; Findings and interventions are described below. Findings: Larynx:normal Esophagus: GE junction at 36 cm, diaphragm hiatus at 38 cm, consistent with 2 cm sliding hiatal hernia, bx taken from GEJ, distal and proximal esophagusb Stomach: mild erythema. Biopsies were obtained. Grade 2 flap valve on retroflexed examination of the cardia. Duodenum: Normal bulb and descending duodenum, Intervention: Biopsies as noted above, COLONOSCOPY Instrument: Olympus variable stiffness pediatric scope 190L Colonoscopy Monitoring: Vital signs and clinical assessment, continuous EKG monitoring, Pulse oximetry, Carbon Dioxide monitoring and blood pressure monitoring were done throughout the procedure. Colon withdrawal time was 13 minutes. Procedure: The patient was placed in the left lateral decubitis position and pre-procedure medications were administered. After a digital rectal examination of the ano-rectum, the video colonoscope was inserted into the rectum and advanced through the colon to the cecum/TI. The colonoscope was slowly withdrawn in a retrograde panoramic fashion and the colon mucosa was carefully examined including a retroflexed view of the rectum. Findings and interventions are described below. Procedure Difficulty:moderate Findings: melanosis coli noted-tortuous colon, reduced motility Terminal Ileum-normal Cecum:normal Ascending Colon: normal Transverse Colon -normal Descending Colon:normal Sigmoid Colon: normal Rectum: Retroflexion with medium sized internal hemorrhoids, grade I, 7-9 mm sessile polyp removed with cold snare Anorectum - normal Colon preparation: [place] Bowel Preparation Scale Right colon; 2 Transverse colon: 2 Left colon; 2 (0 = Unprepared colon segment with mucosa not seen due to solid stool that cannot be cleared. 1 = Portion of mucosa of the colon segment seen, but other areas of the colon segment not well seen due to staining, residual stool and/or opaque liquid. 2 = Minor amount of residual staining, small fragments of stool and/or opaque liquid, but mucosa of colon segment seen well. 3 = Entire mucosa of colon segment seen well with no residual staining, small fragments of stool or opaque liquid) Impression and Post Procedure Diagnosis: Endoscopy Findings: hiatal hernia mild gastritis Colonoscopy Findings: melanosis coli tortuous colon possible colonic dysmotility colon polyp internal hemorrhoids Plan: Await Pathology results Repeat Colonoscopy in 5-7 years if adenomatous polyp, 10 yrs if hyperplastic or earlier if clinically indicated High fiber diet leaflet avoid straining at stool, epsom salts and sitz bath, anusol supps or cream GERD precautions Above findings were reviewed with the patient and relevant handouts were provided if indicated.
[2023-11-05 11:06] VITALS: BP 103/60; PULSE 92; RESP 16; TEMP 36.2; O2SAT 95
[2023-11-05 11:21] VITALS: BP 113/76; PULSE 66; RESP 16; TEMP 36.2; O2SAT 100
== END 2023-11-05 12:42 | disposition home or self-care (01) ==
PROVIDERS: PCP Internal Medicine; Visit Provider Internal Medicine Gastroenterology
PROC: (CPT 43239; principal; 2023-11-05 10:40)
DX: K29.70 Gastritis, unspecified, without bleeding (principal); K44.9 Diaphragmatic hernia without obstruction or gangrene; D64.9 Anemia, unspecified; K21.9 Gastro-esophageal reflux disease without esophagitis; K62.1 Rectal polyp; K64.0 First degree hemorrhoids; K56.2 Volvulus; K63.89 Other specified diseases of intestine; J45.50 Severe persistent asthma, uncomplicated
CPT/HCPCS: 43239; 45385; 88305; 88313; 88342; J1596; J2704

== ENCOUNTER → 2023-11-05 08:46 | Outpatient (BNV) | payer OTHER, SELFPAY | PROVIDERS: PCP Internal Medicine; Visit Provider Internal Medicine Gastroenterology | DX: R19.4 Change in bowel habit (principal); K62.1 Rectal polyp; K63.89 Other specified diseases of intestine; K64.0 First degree hemorrhoids; K21.9 Gastro-esophageal reflux disease without esophagitis; K29.70 Gastritis, unspecified, without bleeding | CPT/HCPCS: 43239; 45385 ==

== ENCOUNTER 2023-11-06 09:38 | Outpatient (AMB) | payer OTHER, SELFPAY ==
--- NOTE | 2023-11-06 09:50 | A.OFFVIS_ITS ---
Intake Visit Reasons: OV - Left Shoulder Intake Note: Berenice is a 53 year old right hand dominant female who presents today for a follow up of left humeral neck fx, DOI 05/31/23. Patient reports she is a bit sore today due to undergoing a procedure. She is doing great with PT and she has a little bit more ROM. Allergies niacin [Niaspan Extended-Release] Allergy (Intermediate, Verified 11/06/23 09:54) skin blisters tramadol Allergy (Intermediate, Verified 11/06/23 09:54) seizures barley [BARLEY] Allergy (Unknown, Verified 11/06/23 09:54) UNKNOWN fluticasone [Advair Diskus] Allergy (Unknown, Verified 11/06/23 09:54) Shortness of Breath ibuprofen Allergy (Unknown, Verified 11/06/23 09:54) Swelling naratriptan Allergy (Unknown, Verified 11/06/23 09:54) unknown Penicillins [PENICILLINS] Allergy (Unknown, Verified 11/06/23 09:54) Unknown sumatriptan Allergy (Unknown, Verified 11/06/23 09:54) unknown trazodone [TRAZODONE] Allergy (Unknown, Verified 11/06/23 09:54) UNKNOWN omalizumab [From Xolair] Adverse Reaction (Severe, Verified 11/06/23 09:54) Anaphylaxis equate cough drops sugar free Allergy (Mild, Uncoded 09/08/23 14:05) Unknown HPI HPI OV - Left Shoulder: Details: 53-year-old right hand dominant female who presents in the office today for a follow-up of a left humeral neck fracture, which occurred on 05/31/2023 status post a mechanical fall injuring her left shoulder and elbow. I last saw the patient in the office on 09/08/2023 when the patient was given a referral to [facility] and was to remain out of work until her follow-up today.? ? The patient reports she connected with a counselor and was diagnosed with PTSD as a result of her work injury. She is currently working directly with them to prepare for her return to work and will continue to do so at this time. ? ? While in the office today, the patient reports she is a bit sore due to undergoing an upper endoscopy and colonoscopy on 11/05/2023 and having to lay on her left side. However, she states she is doing great overall with physical therapy and has ?a little bit? more ROM.? PFSH Medical History Anemia Bronchitis due to COVID-19 virus COVID Acute pneumonia Work related injury Acute diarrhea Paresthesias in left hand Dysuria PFO (patent foramen ovale) Shortness of breath Community acquired pneumonia Hospital discharge follow-up Chronic idiopathic constipation Pre-op examination Encounter for routine gynecological examination LFT elevation Encounter for general adult medical examination with abnormal findings Respiratory tract congestion with cough Hospital discharge follow-up COVID-19 Tracheobronchitis COVID-19 Other specified hypothyroidism Colon cancer screening Iron deficiency anemia Shoulder pain, right Nausea and vomiting PFO (patent foramen ovale) History of transesophageal echocardiography (LAN) Colitis Abnormal angiogram of head COVID-19 Asthma Thyroid disease GERD (gastroesophageal reflux disease) Anemia Aneurysm Surgical History History of surgery of uterus H/O endoscopy History of H/O brain surgery History of colonoscopy Family History Father Diabetes Arthritis Diverticulitis Leukemia Mental health disorder Lung cancer Mother Anemia Arthritis Colon polyps Myocardial infarction Brother Crohn's disease Testicular cancer Brother Cancer Paternal Grandfather Leukemia Other Substance use disorder Social History Household Members: Significant Other Housing: House Are you a primary transition of care specialist to a significant other at home: No Do you presently have visiting nurse or other home services: No Alcohol intake: former Patient Tobacco Use Status: Former Tobacco user Tobacco use type: Cigarette Cigarettes Per Day: 10 e-Cigarette/Vaping Use: Never Used Advance Directives Date on File: 04/09/21 service: No 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al status: employed 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: [employer]/ right hand dominant Cognitive needs: No Hearing needs: No Vision needs: Yes Review of Systems Const All systems reviewed & are unremarkable except as noted in HPI and below Physical Exam Const General: cooperative, healthy appearing and no acute distress Resp Effort & Inspection: normal respiratory effort and able to speak in complete sentences Cardio Rate: regular rate Peripheral pulses: Peripheral pulses 2+ throughout GI Palpation (GI): Soft to palpation Skin Lesions: no lesions Rashes: no rashes Extrem Other: Left shoulder: Forward flexion and abduction to 50 degrees. External rotation to neutral. Patient is still having difficulty reaching over her head and reaching her back pocket. NVI. Assessment & Plan Assessment & Plan (1) Fracture of neck of left humerus: Onset Date: ~05/31/23 Code(s): S42.212A - Unspecified displaced fracture of surgical neck of left humerus, initial encounter for closed fracture Category: Medical Qualifiers: Encounter type: initial encounter Fracture type: closed Qualified Code(s): S42.212A - Unspecified displaced fracture of surgical neck of left humerus, initial encounter for closed fracture Plan Ms. Shepard is a 53-year-old right hand dominant female who presents in the office today for a follow-up of a left humeral neck fracture, which occurred on 05/31/2023 status post a mechanical fall injuring her left shoulder and elbow. I last saw the patient in the office on 09/08/2023 when the patient was given a referral to [facility] and was to remain out of work until her follow-up today.? ? The patient reports she connected with a counselor and was diagnosed with PTSD as a result of her work injury. She is currently working directly with them to prepare for her return to work and will continue to do so. ? ? While in the office today, the patient reports she is a bit sore due to undergoing an upper endoscopy and colonoscopy on 11/05/2023 and laying on her left side. However, she states she is doing great overall with physical therapy and has ?a little bit? more ROM.? ? At this time, the patient has 10 more formal physical therapy sessions scheduled. This will bring her to the five week oral and I would like to schedule a telehealth visit to discuss her progression with the anticipation that she may return to work at that time. She agrees that this is a good goal. She will remain out of work until her follow-up in five weeks. The patient will also continue to work with her counselor during this time. Follow-up will be in five weeks for a telehealth visit, or sooner if needed. ? Patient Instructions: Scribed by Kacie Hastings medical assistant instructor, for Tiffany Camarillo PA-C on 11/06/2023 at 10:03 am, EST.? Coding Level of Care Code Est Pt Level 3 (66971) Diagnoses Closed fracture of neck of left humerus, initial encounter S42.212A Encounter type: initial encounter Fracture type: closed
== END 2023-11-06 10:14 | disposition home or self-care (01) ==
PROVIDERS: Visit Provider Physician Assistant
DX: S42.212A Unspecified displaced fracture of surgical neck of left humerus, initial encounter for closed fracture (principal)
CPT/HCPCS: 99213

== ENCOUNTER 2023-11-06 09:38 | Outpatient (REF) | payer OTHER, SELFPAY | END 2023-11-06 09:39 | disposition home or self-care (01) | LOC: HO.HOSX 09:38 | PROVIDERS: Visit Provider Physician Assistant | DX: S42.212D Unspecified displaced fracture of surgical neck of left humerus, subsequent encounter for fracture with routine healing (principal); W19.XXXD Unspecified fall, subsequent encounter | CPT/HCPCS: 99212 ==

== ENCOUNTER 2023-11-06 18:15 | Emergency (ER) | payer OTHER, SELFPAY ==
--- NOTE | ~2023-11-06 | XR_ITS ---
EXAMINATION: XR CHEST CLINICAL INFORMATION: Chest tightness. Shortness of breath. COMPARISON: Chest radiograph dated 05/15/2023. TECHNIQUE: Frontal view of the chest was obtained. FINDINGS: Heart size is normal. The lungs are clear. The pleural spaces are clear. No pneumothorax. No acute osseous abnormality. XR/XR chest 1V IMPRESSION: No acute cardiopulmonary disease.
--- NOTE | ~2023-11-06 | CT_ITS ---
EXAMINATION: CT CHEST, ABDOMEN AND PELVIS withCONTRAST CLINICAL INFORMATION: Status post colonoscopy. Chest pain. Abdominal pain. Nausea. COMPARISON: Chest x-ray November 06, 2023. CT scan abdomen pelvis April 28, 2023 TECHNIQUE: Multidetector volumetric CT imaging of the chest, abdomen and pelvis was obtained with intravenous contrast. 85 mL Omnipaque 350. No oral contrast. Coronal, Sagittal reformatted images preformed at the CT scanner. There DLP: 1641 mGy-cm. FINDINGS: CT CHEST: Lungs: The lungs are clear with no evidence of inflammation or nodules. Mediastinum: The mediastinum is normal. Coronary arteries: No coronary calcifications. Pleura: There is no pleural effusion. No pleural mass or thickening. Axilla: No lymphadenopathy. CT ABDOMEN AND PELVIS: Liver, Gallbladder and Biliary Tree: The liver is normal in size, shape, and attenuation. No focal hepatic lesion or biliary ductal dilatation is present. Small radiolucent stones within the gallbladder consistent with cholesterol stones. No gallbladder wall thickening. No bile duct dilatation. Pancreas: No acute change of the pancreas. No mass. No pancreatic duct dilatation. Spleen: Spleen is mildly enlarged measuring 14 cm superior-inferior. Adrenal Glands: Adrenal glands are normal in size. No focal mass. Kidneys and Ureters: The kidneys are normal in size, shape, and attenuation. No hydronephrosis, hydroureter, or calculi seen. No perinephric stranding. Bladder: Unremarkable. Gastrointestinal Tract: The small and large bowel are unremarkable. The appendix is unremarkable. Mesentery: No focal inflammation. No free fluid. No free air. Abdominal Wall: No significant hernia is appreciated. Lymph Nodes: Normal. Vascular: Unremarkable. Pelvic Viscera: Unremarkable. Osseous Structures: Unremarkable. CT/CT chest w IV con IMPRESSION: 1. No acute abnormality of the chest, abdomen or pelvis. 2. Cholelithiasis. 3. Mild splenomegaly.
--- NOTE | ~2023-11-06 | CT_ITS ---
EXAMINATION: CT CHEST, ABDOMEN AND PELVIS withCONTRAST CLINICAL INFORMATION: Status post colonoscopy. Chest pain. Abdominal pain. Nausea. COMPARISON: Chest x-ray November 06, 2023. CT scan abdomen pelvis April 28, 2023 TECHNIQUE: Multidetector volumetric CT imaging of the chest, abdomen and pelvis was obtained with intravenous contrast. 85 mL Omnipaque 350. No oral contrast. Coronal, Sagittal reformatted images preformed at the CT scanner. There DLP: 1641 mGy-cm. FINDINGS: CT CHEST: Lungs: The lungs are clear with no evidence of inflammation or nodules. Mediastinum: The mediastinum is normal. Coronary arteries: No coronary calcifications. Pleura: There is no pleural effusion. No pleural mass or thickening. Axilla: No lymphadenopathy. CT ABDOMEN AND PELVIS: Liver, Gallbladder and Biliary Tree: The liver is normal in size, shape, and attenuation. No focal hepatic lesion or biliary ductal dilatation is present. Small radiolucent stones within the gallbladder consistent with cholesterol stones. No gallbladder wall thickening. No bile duct dilatation. Pancreas: No acute change of the pancreas. No mass. No pancreatic duct dilatation. Spleen: Spleen is mildly enlarged measuring 14 cm superior-inferior. Adrenal Glands: Adrenal glands are normal in size. No focal mass. Kidneys and Ureters: The kidneys are normal in size, shape, and attenuation. No hydronephrosis, hydroureter, or calculi seen. No perinephric stranding. Bladder: Unremarkable. Gastrointestinal Tract: The small and large bowel are unremarkable. The appendix is unremarkable. Mesentery: No focal inflammation. No free fluid. No free air. Abdominal Wall: No significant hernia is appreciated. Lymph Nodes: Normal. Vascular: Unremarkable. Pelvic Viscera: Unremarkable. Osseous Structures: Unremarkable. CT/CT abdomen pelvis w IV con IMPRESSION: 1. No acute abnormality of the chest, abdomen or pelvis. 2. Cholelithiasis. 3. Mild splenomegaly. Fleischner guidelines were followed.
--- NOTE | 2023-11-06 18:17 | ECG_ITS ---
Test Reason : CHEST PAIN Blood Pressure : / mmHG Vent. Rate : 094 BPM Atrial Rate : 094 BPM P-R Int : 156 ms QRS Dur : 082 ms QT Int : 334 ms P-R-T Axes : 034 -08 011 degrees QTc Int : 417 ms Normal sinus rhythm Possible Left atrial enlargement Cannot rule out Anterior infarct , age undetermined Abnormal ECG When compared with ECG of 08-MAR-2023 11:26, No significant change was found Referred By: Generic ED Physician Electronically Signed By:JEFFERY NASH MD
[2023-11-06 18:26] VITALS: BP 157/91; PULSE 92; RESP 20; TEMP 36.4; O2SAT 96; BMI 35.7
[2023-11-06 19:29] LABS: MANUAL DIFF FLAG NO
[2023-11-06 19:32] LABS: Appearance Urine Clear; Basophils Absolute Auto 0.1 X10*3/uL (0.0-0.2); Basophils Percent Auto 0.6 % (0-2); Color Urine Yellow; Eosinophils Absolute Auto 0.2 X10*3/uL (0.0-0.4); Eosinophils Percent Auto 2.3 % (0-4); Glucose Urine UA Negative (Negative); Hematocrit 38.1 % (37.0-47.0); Hemoglobin 13.1 g/dl (12.0-16.0); Imm Gran Abs Auto 0.02 X10*3/uL (0.00-0.03); Imm Gran Pct Auto 0.2 % (0.0-0.4); Leukocyte Esterase Urine Trace (Negative); Lymphocytes Absolute Auto 2.4 X10*3/uL (1.2-4.9); Lymphocytes Percent Auto 22.6 % (20-40); Mean Corpuscular HGB Conc 34.4 g/dl (31.0-35.0); Mean Corpuscular Hemoglobin 27.9 pg (27.0-33.0); Mean Corpuscular Volume 81.2 fL (80.0-98.0); Mean Platelet Volume 10.1 fL (9.4-12.3); Monocytes Absolute Auto 0.7 X10*3/uL (0.1-1.2); Monocytes Percent Auto 6.9 % (2-11); Neutrophils Absolute Auto 7.2 x10*3/uL (2.0-8.3); Neutrophils Percent Auto 67.4 % (45-73); Nitrite Urine Negative (Negative); PH 6.5 (5.0-9.0); Platelet Count 277 X10*3/uL (160-400); Red Blood Count 4.69 X10*6/uL (4.20-5.50); Red Cell Distribution Width 13.3 % (11.0-16.0); UMIC TRIGGER UACC YES; Urine Blood Trace (Negative); Urine Ketones Negative (Negative); Urine Protein Negative (Neg-Trace); White Blood Count 10.7 X10*3/uL (4.8-10.8)
[2023-11-06 19:46] LABS: Alanine Aminotransferase 9 U/L (0-31); Alkaline Phosphatase 137 U/L (39-117); Anion Gap 17 (12-20); Aspartate Amino Transferase 9 U/L (5-31); Bilirubin Direct < 0.2 mg/dL (0.0-0.5); Bilirubin Total 0.2 mg/dL (0.0-1.0); Blood Urea Nitrogen 9 mg/dL (9-16); Calcium 9.9 mg/dL (8.4-10.2); Carbon Dioxide 20 mmol/L (22-29); Chloride 107 mmol/L (96-108); Creatinine Clr Calc Pharmacy 113.4; Estimated Glomerular Filt Rate > 60; Glucose Random 99 mg/dL (60-115); Lipase 11 U/L (8-78); Potassium 3.7 mmol/L (3.3-5.1); Sodium 140 mmol/L (135-145); Total Protein 6.5 g/dL (6.5-8.0)
[2023-11-06 19:50] LABS: Bacteria Urine Trace (None Seen); Hyaline Casts Urine 0-2 /LPF (0-2); WBC Urine 0-5 /HPF (0-5)
[2023-11-06 19:53] LABS: Troponin-I High Sensitivity < 2.7 ng/L (<3.5-17.0)
[2023-11-06 20:13] VITALS: BP 143/78; PULSE 82; RESP 17; TEMP 36.6; O2SAT 99
--- NOTE | 2023-11-06 20:13 | ED_ITS ---
HPI - General Adult General Chief complaint: General Medical Stated complaint: colonoscopy/endoscopy t-1, CP, [employer] Time Seen by Provider: 11/06/23 20:13 Source: patient and RN notes reviewed Limitations: no limitations History of Present Illness HPI narrative: 53-year-old female who has a history of depression, personality disorder, constipation, hypothyroidism, GERD, presents postop day 1 after upper endoscopy and colonoscopy by Dr. Bass complaining of chest pain and abdominal pain. Patient states almost immediately after she had been discharged she complained of chest pain which is low in her chest. In addition she reports upper abdominal pain and right upper quadrant pain. She has had intermittent episodes of nausea but no vomiting. She is able to tolerate liquids. She tried eating eggs today but did not feel that that went down very well. In addition, she has a sore throat and pain to the left side of her neck. She denies any fevers or chills. She denies any dysuria or hematuria. No melena or hematochezia. She contacted the on-call upkeep mechanic and was advised to come to the emergency department for further evaluation. Related Data Previous Rx's ?Medication ?Instructions ?Recorded lidocaine 5 % topical patch 1 patch topical DAILY #15 ea 04/11/23 (Lidoderm) loratadine 10 mg tablet 10 mg PO DAILY 30 days #30 tabs 05/19/23 peg 3350-electrolytes 236 240 ml PO Q10M 1 day #4,000 mL 07/09/23 gram-22.74 gram-6.74 gram-5.86 gram solution (Golytely) naproxen 500 mg tablet 500 mg PO TID #90 tabs 09/07/23 bisacodyl 5 mg tablet,delayed 10 mg (2 x 5 mg) PO BEDTIME 30 09/29/23 release (Dulcolax (bisacodyl)) days #60 tabs dexlansoprazole 60 mg 60 mg PO DAILY 90 days #90 caps 09/29/23 capsule,biphase delayed release (Dexilant) simethicone 180 mg capsule 180 mg PO QID 30 days #120 caps 09/29/23 fluticasone propionate 230 2 puff inhalation Q12H 30 days #12 09/30/23 mcg-salmeterol 21 mcg/actuation grams HFA inhaler (Advair HFA) ipratropium 0.5 mg-albuterol 3 mg 3 ml inhalation Q4-6H PRN wheezing 09/30/23 (2.5 mg base)/3 mL nebulization 30 days #270 mL soln fluticasone propionate 50 2 spray intranasal BID 90 days #16 10/06/23 mcg/actuation nasal grams spray,suspension (Flonase Allergy Relief) levothyroxine 175 mcg tablet 175 mcg PO QAM 90 days #90 tabs 10/06/23 montelukast 10 mg tablet 10 mg PO DAILY #90 tabs 10/06/23 epinephrine 0.3 mg/0.3 mL 0.3 mg (0.3 mL) IM Q10M PRN 10/16/23 injection, auto-injector anaphylaxis #2 ea oxcarbazepine 150 mg tablet 75 mg (1/2 x 150 mg) PO DAILY #30 10/20/23 (Trileptal) tabs lorazepam 0.5 mg tablet 0.5 mg PO BID PRN anxiety 15 days 10/26/23 #30 tabs Ventolin HFA 90 mcg/actuation 2 puff inhalation Q4H #18 grams 10/28/23 aerosol inhaler (albuterol sulfate) sucralfate 100 mg/mL oral 5 ml PO QID #200 mL 11/07/23 suspension (Carafate) Allergies Allergy/AdvReac Type Severity Reaction Status Date / Time niacin Allergy Intermediate skin Verified 11/06/23 18:31 [Niaspan Extended-Release] blisters tramadol Allergy Intermediate seizures Verified 11/06/23 18:31 barley [BARLEY] Allergy Unknown UNKNOWN Verified 11/06/23 18:31 fluticasone [Advair Diskus] Allergy Unknown Shortness Verified 11/06/23 18:31 of Breath ibuprofen Allergy Unknown Swelling Verified 11/06/23 18:31 naratriptan Allergy Unknown unknown Verified 11/06/23 18:31 Penicillins [PENICILLINS] Allergy Unknown Unknown Verified 11/06/23 18:31 sumatriptan Allergy Unknown unknown Verified 11/06/23 18:31 trazodone [TRAZODONE] Allergy Unknown UNKNOWN Verified 11/06/23 18:31 omalizumab [From Xolair] AdvReac Severe Anaphylaxis Verified 11/06/23 18:31 equate cough drops sugar free Allergy Mild Unknown Uncoded 09/08/23 14:05 Review of Systems 2 Constitutional: Constitutional: Denies chills, Denies fever(s) and Denies headache(s) ENT: Denies change in voice, Denies headache(s), Denies hoarseness, Denies nasal congestion, Denies nasal discharge, Reports sore throat and Denies throat swelling Cardiovascular: Cardiovascular: Denies palpitations, Denies dyspnea, Denies dyspnea on exertion and Denies orthopnea Respiratory: Respiratory: Denies cough, Denies dyspnea and Denies dyspnea on exertion Gastrointestinal: Gastrointestinal: Reports abdominal pain, Denies melena, Denies bloating, Denies hematochezia, Denies diarrhea, Reports nausea and Denies vomiting Genitourinary: Genitourinary: Denies dysuria and Denies urinary urgency Musculoskeletal: Musculoskeletal: Denies back pain, Denies muscle weakness and Denies numbness Integumentary/Breasts: Skin/Breast: Denies rash Neurologic: Denies headache(s), Denies focal weakness and Denies numbness Psychiatric: Psychiatric: Denies depression Endocrine: Endocrine: Denies palpitations Allergic/Immunologic: Allergic/Immunologic: Denies throat swelling PMFSH Past Medical History Medical History Anemia Bronchitis due to COVID-19 virus COVID Acute pneumonia Work related injury Acute diarrhea Paresthesias in left hand Dysuria PFO (patent foramen ovale) Shortness of breath Community acquired pneumonia Hospital discharge follow-up Chronic idiopathic constipation Pre-op examination Encounter for routine gynecological examination LFT elevation Encounter for general adult medical examination with abnormal findings Respiratory tract congestion with cough Hospital discharge follow-up COVID-19 Tracheobronchitis COVID-19 Other specified hypothyroidism Colon cancer screening Iron deficiency anemia Shoulder pain, right Nausea and vomiting PFO (patent foramen ovale) History of transesophageal echocardiography (LAN) Colitis Abnormal angiogram of head COVID-19 Asthma Thyroid disease GERD (gastroesophageal reflux disease) Anemia Aneurysm Surgical History History of surgery of uterus H/O endoscopy History of H/O brain surgery History of colonoscopy Family History Family History Father Diabetes Arthritis Diverticulitis Leukemia Mental health disorder Lung cancer Mother Anemia Arthritis Colon polyps Myocardial infarction Brother Crohn's disease Testicular cancer Brother Cancer Paternal Grandfather Leukemia Other Substance use disorder Social History Social History Household Members: Significant Other Housing: House Are you a primary animal care assistant to a significant other at home: No Do you presently have visiting nurse or other home services: No Alcohol intake: former Patient Tobacco Use Status: Former Tobacco user Tobacco use type: Cigarette Cigarettes Per Day: 10 Smoked in Last 30 Days: Yes e-Cigarette/Vaping Use: Never Used Advance Directives: Yes Advance Directives on File: Yes Advance Directives Date on File: 04/09/21 Do you have a plan to hurt others: No Plan Patient : No service: No 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al status: employed 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: [employer]/ right hand dominant Cognitive needs: No Hearing needs: No Vision needs: Yes Physical Exam ED Vital Signs: Vital Signs - 24 hr 11/06/23 18:26 11/06/23 20:13 11/06/23 22:00 Temperature 97.6 F 98 F 97.7 F Pulse Rate 92 82 82 Respiratory Rate 20 17 16 Blood Pressure 157/91 H 143/78 H 145/73 H Pulse Oximetry 96 99 98 Oxygen Delivery Method Room Air Room Air Room Air 11/06/23 23:56 11/07/23 00:41 Temperature 97.6 F 97.6 F Pulse Rate 69 69 Respiratory Rate 14 14 Blood Pressure 145/82 H 145/82 H Pulse Oximetry 96 96 Oxygen Delivery Method Room Air Room Air BMI result Body Mass Index 35.7 Const General: cooperative HENMT Other: Pupils are equal round and reactive to light. Extraocular movements are intact. Nares are patent, there is no nasal discharge. Oropharynx is moist. There is no tongue elevation or edema. No stridor. No drooling. No exudate. No erythema. Neck Other: Tenderness to the left anterior cervical and submandibular region with likely lymphadenopathy. There is no crepitus. Resp Effort & Inspection: normal respiratory effort Auscultation: clear to auscultation bilaterally Cardio Rate: regular rate Rhythm: regular rhythm GI Other: Abdomen is soft with diffuse tenderness in the epigastric region. There is no peritoneal signs. No CVAT. Mild right upper quadrant tenderness. Negative Martinez's sign Extrem Other: No calf tenderness or pedal edema Course Course Course Narrative: November 07, 2023, 12:[address] results returned, no acute process. I reviewed these findings and all laboratory results once again with the patient. She has remained hemodynamically stable and afebrile. She feels comfortable with discharge plan home. In addition, patient will monitor suspected lymphadenopathy on the left neck. Trial of Carafate for symptom relief. She will follow up with PCP and GI. Medications Administered Discontinued Medications Generic Name Dose Route Start Last Admin Trade Name Freq PRN Reason Stop Dose Admin Sodium Chloride 1,000 mls @ 999 mls/hr 11/06/23 20:30 11/06/23 22:53 Ns IV 11/06/23 21:30 Infused .Q1H1M MATTHEW Infusion Iohexol 85 ml 11/06/23 22:51 11/06/23 22:52 Iohexol 350 Mg/Ml 100 Ml Infus..Btl IV 11/06/23 22:52 85 ml ONCE ONE Administration Ondansetron HCl 4 mg 11/06/23 20:29 11/06/23 20:48 Ondansetron Hcl 4 Mg/2 Ml Vial IVPUSH 11/06/23 20:30 4 mg ONCE ONE Administration Medical Decision Making Medical Decision Making [facility] Narrative: 53-year-old female 1 day post upper endoscopy and colonoscopy presenting with chest and abdominal pain. There is no hypoxia. She is hemodynamically stable. Concern for possible perforation or solid organ injury, we will CT. Labs at this time are unremarkable. IV and IV fluids, Zofran. Discussed with Dr. Bruce who agrees with plan. Review of colonoscopy demonstrates melanosis coli, tortuous colon, possible colonic dysmotility and internal hemorrhoids. Upper endoscopy demonstrates hiatal hernia and mild gastritis. Differential Diagnosis Differential Diagnoses: The differential diagnosis associated with the presentation includes Esophageal perforation Esophagitis Perforation Splenic perforation Dyspepsia Admission/Observation Consideration of admission/observation: Escalation of care including admission/observation considered Consideration for inpatient admission if clinically warranted Lab Data [facility] Lab Attestation statement: I reviewed the patient's lab results. 11/06/23 19:20 11/06/23 19:20 Labs: Lab Results 11/06/23 Range/Units 19:20 WBC 10.7 (4.8-10.8) X10*3/uL RBC 4.69 (4.20-5.50) X10*6/uL Hgb 13.1 (12.0-16.0) g/dl Hct 38.1 (37.0-47.0) % MCV 81.2 (80.0-98.0) fL MCH 27.9 (27.0-33.0) pg MCHC 34.4 (31.0-35.0) g/dl RDW 13.3 (11.0-16.0) % Plt Count 277 D (160-400) X10*3/uL MPV 10.1 (9.4-12.3) fL Immature Gran % (Auto) 0.2 (0.0-0.4) % Neut % (Auto) 67.4 (45-73) % Lymph % (Auto) 22.6 (20-40) % Mitchell % (Auto) 6.9 (2-11) % Eos % (Auto) 2.3 (0-4) % Baso % (Auto) 0.6 (0-2) % Lymph # (Auto) 2.4 (1.2-4.9) X10*3/uL Mitchell # (Auto) 0.7 (0.1-1.2) X10*3/uL Eos # (Auto) 0.2 (0.0-0.4) X10*3/uL Baso # (Auto) 0.1 (0.0-0.2) X10*3/uL Abs Immat Gran (auto) 0.02 (0.00-0.03) X10*3/uL Absolute Neuts (auto) 7.2 (2.0-8.3) x10*3/uL Absolute Nucleated RBC 0.000 (0.0-0.012) X10*3/uL Nucleated RBC % (auto) 0.0 (0.0-0.2) /100WBC Sodium 140 (135-145) mmol/L Potassium 3.7 (3.3-5.1) mmol/L Chloride 107 (96-108) mmol/L Carbon Dioxide 20 L (22-29) mmol/L Anion Gap 17 (12-20) BUN 9 (9-16) mg/dL Creatinine 0.67 (0.5-1.4) mg/dL Estim Creat Clear Calc 113.4 Estimated GFR > 60 Random Glucose 99 (60-115) mg/dL Calcium 9.9 D (8.4-10.2) mg/dL Total Bilirubin 0.2 (0.0-1.0) mg/dL Direct Bilirubin < 0.2 (0.0-0.5) mg/dL AST 9 (5-31) U/L ALT 9 (0-31) U/L Alkaline Phosphatase 137 H (39-117) U/L Troponin I High Sens < 2.7 (<3.5-17.0) ng/L Total Protein 6.5 (6.5-8.0) g/dL Albumin 4.0 (3.5-5.0) g/dL Lipase 11 (8-78) U/L Urine Color Yellow Urine Appearance Clear Urine pH 6.5 (5.0-9.0) Ur Specific [place] 1.010 (1.005-1.025) Urine Protein Negative (Neg-Trace) mg/dL Urine Glucose (UA) Negative (Negative) mg/dL Urine Ketones Negative (Negative) mg/dL Urine Blood Trace H (Negative) Urine Nitrite Negative (Negative) Ur Leukocyte Esterase Trace H (Negative) Urine RBC 3-5 H (0-2) /HPF Urine WBC 0-5 (0-5) /HPF Ur Squamous Epith Cells 3-5 (0-2) /HPF Urine Bacteria Trace (None Seen) Hyaline Casts 0-2 (0-2) /LPF Independent Interpretation I performed an independent interpretation of an: EKG Interpretation: EKG is sinus at 94 beats per minute without any acute ischemic changes. Radiology Impression Discussion of test interpretation with radiology: I have reviewed the radiologist's reading. Radiologist Impression: Close Chest CT (Signed) Arose, - 11/06/23 Abdomen/Pelvis CT (Signed) ,11/06/23 Launch?Image [place] [address] CT Scan Report Signed Patient: Berenice Shepard MR#: [id number] : 1970 Acct:[id number] Age/Sex: 53 / F ADM Date: 11/06/23 Loc: HO.ED Attending Dr: Ordering Physician: Karthik Briones Date of Service: 11/06/23 Procedure(s): CT chest w IV con Accession Number(s): [id number] cc: Thee Tay MD; Karthik Briones~ EXAMINATION: CT CHEST, ABDOMEN AND PELVIS withCONTRAST CLINICAL INFORMATION: Status post colonoscopy. Chest pain. Abdominal pain. Nausea. COMPARISON: Chest x-ray November 06, 2023. CT scan abdomen pelvis April 28, 2023 TECHNIQUE: Multidetector volumetric CT imaging of the chest, abdomen and pelvis was obtained with intravenous contrast. 85 mL Omnipaque 350. No oral contrast. Coronal, Sagittal reformatted images preformed at the CT scanner. There DLP: 1641 mGy-cm. FINDINGS: CT CHEST: Lungs: The lungs are clear with no evidence of inflammation or nodules. Mediastinum: The mediastinum is normal. Coronary arteries: No coronary calcifications. Pleura: There is no pleural effusion. No pleural mass or thickening. Axilla: No lymphadenopathy. CT ABDOMEN AND PELVIS: Liver, Gallbladder and Biliary Tree: The liver is normal in size, shape, and attenuation. No focal hepatic lesion or biliary ductal dilatation is present. Small radiolucent stones within the gallbladder consistent with cholesterol stones. No gallbladder wall thickening. No bile duct dilatation. Pancreas: No acute change of the pancreas. No mass. No pancreatic duct dilatation. Spleen: Spleen is mildly enlarged measuring 14 cm superior-inferior. Adrenal Glands: Adrenal glands are normal in size. No focal mass. Kidneys and Ureters: The kidneys are normal in size, shape, and attenuation. No hydronephrosis, hydroureter, or calculi seen. No perinephric stranding. Bladder: Unremarkable. Gastrointestinal Tract: The small and large bowel are unremarkable. The appendix is unremarkable. Mesentery: No focal inflammation. No free fluid. No free air. Abdominal Wall: No significant hernia is appreciated. Lymph Nodes: Normal. Vascular: Unremarkable. Pelvic Viscera: Unremarkable. Osseous Structures: Unremarkable. CT/CT chest w IV con IMPRESSION: 1. No acute abnormality of the chest, abdomen or pelvis. 2. Cholelithiasis. 3. Mild splenomegaly. Dictated By: Thang Vargas MD Signed By: <Electronically signed by Thang Vargas MD in OV> 11/06/23 4224 DD/ 4994 TD/TT: Slot Service Specialist: [address] [id number] XRay Report Signed Patient: Berenice Shepard MR#: [id number] : 1970 Acct:[id number] Age/Sex: 53 / F ADM Date: 11/06/23 Loc: HO.ED Attending Dr: Ordering Physician: Generic ED Physician Date of Service: 11/06/23 Procedure(s): XR chest 1V Accession Number(s): [id number] cc: Generic ED Physician; Thee Tay MD~ EXAMINATION: XR CHEST CLINICAL INFORMATION: Chest tightness. Shortness of breath. COMPARISON: Chest radiograph dated 05/15/2023. TECHNIQUE: Frontal view of the chest was obtained. FINDINGS: Heart size is normal. The lungs are clear. The pleural spaces are clear. No pneumothorax. No acute osseous abnormality. XR/XR chest 1V IMPRESSION: No acute cardiopulmonary disease. Dictated By: Leland Bailon Jr, DO Signed By: <Electronically signed by Leland Bailon Jr, in OV> 11/06/23 1906 DD/ 52 TD/TT: Slot Service Specialist: NADIR Discharge Plan Discharge Clinical Impression: Acute epigastric pain Patient Disposition: Home, Self-Care Instructions: Abdominal Pain (ED) Additional Instructions: Clear liquids. [place] diet. Gradually advanced. Carafate as directed. Follow-up with Dr. Bass Follow-up with your primary care provider. Call this week to schedule a follow- up appointment. Return to the emergency department if you have any worsening of symptoms, or any concerns. Get well soon! Prescriptions: New sucralfate [Carafate] 100 mg/mL suspension 5 ml PO QID Qty: 200 0RF Rx Instructions: swish in mouth and swallow; use after food/drink No Action loratadine 10 mg tablet 10 mg PO DAILY 30 Days Qty: 30 6RF naproxen 500 mg tablet 500 mg PO TID Qty: 90 0RF dexlansoprazole [Dexilant] 60 mg capsule,biphase delayed releas 60 mg PO DAILY 90 Days Qty: 90 3RF simethicone 180 mg capsule 180 mg PO QID 30 Days Qty: 120 6RF Rx Instructions: after meals bisacodyl [Dulcolax (bisacodyl)] 5 mg tablet,delayed release (DR/EC) 10 mg PO BEDTIME 30 Days Qty: 60 3RF fluticasone propion-salmeterol [Advair HFA] 230-21 mcg/actuation HFA aerosol inhaler 2 puff inhalation Q12H 30 Days Qty: 12 6RF ipratropium-albuterol 0.5 mg-3 mg(2.5 mg base)/3 mL solution for nebulization 3 ml inhalation Q4-6H PRN (Reason: wheezing) 30 Days Qty: 270 6RF levothyroxine 175 mcg tablet 175 mcg PO QAM 90 Days Qty: 90 0RF montelukast 10 mg tablet 10 mg PO DAILY Qty: 90 0RF fluticasone propionate [Flonase Allergy Relief] 50 mcg/actuation spray,suspension 2 spray intranasal BID 90 Days Qty: 16 3RF Rx Instructions: administer into each nostril lorazepam 0.5 mg tablet 0.5 mg PO BID PRN (Reason: anxiety) 15 Days Qty: 30 0RF albuterol sulfate [Ventolin HFA] 90 mcg/actuation HFA aerosol inhaler 2 puff inhalation Q4H Qty: 18 0RF lidocaine [Lidoderm] 5 % adhesive patch,medicated 1 patch topical DAILY Qty: 15 0RF Rx Instructions: leave on most painful area for up to 12 hrs epinephrine 0.3 mg/0.3 mL auto-injector 0.3 mg IM Q10M PRN (Reason: anaphylaxis) Qty: 2 0RF Rx Instructions: for 2 doses oxcarbazepine [Trileptal] 150 mg tablet 75 mg PO DAILY Qty: 30 1RF peg 3350-electrolytes [Golytely] 236-22.74-6.74 -5.86 gram recon soln 240 ml PO Q10M 1 Days Qty: 4000 0RF Rx Instructions: until fecal effluent is clear; do not exceed a total volume of 2,000 mL Interventions: ED Discharge Assessment Last Done: 11/07/23 00:41 Discharge Date/Time: 11/07/23 00:46 Print Language: [place]
[2023-11-06] MEDS: 0.9 % Sodium Chloride 1,000 ML 999 ML IV (20:48)
[2023-11-06] MEDS: ondansetron HCL 4 MG/2 ML VIAL IVPUSH (20:48)
[2023-11-06 22:00] VITALS: BP 145/73; PULSE 82; RESP 16; TEMP 36.5; O2SAT 98
[2023-11-06] MEDS: iohexoL 350 MG/ML 100 ML INFUS..BTL 85 ML IV (22:52)
[2023-11-06 23:56] VITALS: BP 145/82; PULSE 69; RESP 14; TEMP 36.4; O2SAT 96
[2023-11-07 00:41] VITALS: BP 145/82; PULSE 69; RESP 14; TEMP 36.4; O2SAT 96
== END 2023-11-07 00:46 | disposition home or self-care (01) ==
PROVIDERS: Emergency Provider Emergency Medicine Emergency Medical Services; PCP Internal Medicine
DX: R10.13 Epigastric pain (principal); R06.02 Shortness of breath; K21.9 Gastro-esophageal reflux disease without esophagitis; J45.909 Unspecified asthma, uncomplicated; Z87.891 Personal history of nicotine dependence
CPT/HCPCS: 36415; 71045; 71260; 74177; 80048; 80076; 81001; 83690; 84484; 85025; 93005; 96361; 96374; 99284; 99285; J2405; Q9967

== ENCOUNTER → 2023-11-06 18:17 | Outpatient (BNV) | payer OTHER, SELFPAY | PROVIDERS: Emergency Provider Emergency Medicine Emergency Medical Services; PCP Internal Medicine; Visit Provider Internal Medicine Cardiovascular Disease | DX: R07.9 Chest pain, unspecified (principal); R94.31 Abnormal electrocardiogram [ECG] [EKG] | CPT/HCPCS: 93010 ==

== ENCOUNTER 2023-11-11 08:49 | Outpatient (AMB) | payer OTHER, SELFPAY ==
[2023-11-11 08:49] VITALS: BP 130/80; PULSE 72; O2SAT 98; BMI 35.6
--- NOTE | 2023-11-11 08:50 | A.OFFPC_ITS ---
Vital Signs 11/11/23 08:49 Height 5 ft 5 in Weight 214 lb BMI 35.6 BP 130/80 Blood Pressure Location Lt brachial Position Sitting Pulse 72 Pulse Source Pulse Oximeter Pulse Oximetry (%) 98 Intake Visit Reasons: Goiter or TMJ flair up Allergies niacin [Niaspan Extended-Release] Allergy (Intermediate, Verified 11/11/23 08:50) skin blisters tramadol Allergy (Intermediate, Verified 11/11/23 08:50) seizures barley [BARLEY] Allergy (Unknown, Verified 11/11/23 08:50) UNKNOWN fluticasone [Advair Diskus] Allergy (Unknown, Verified 11/11/23 08:50) Shortness of Breath ibuprofen Allergy (Unknown, Verified 11/11/23 08:50) Swelling naratriptan Allergy (Unknown, Verified 11/11/23 08:50) unknown Penicillins [PENICILLINS] Allergy (Unknown, Verified 11/11/23 08:50) Unknown sumatriptan Allergy (Unknown, Verified 11/11/23 08:50) unknown trazodone [TRAZODONE] Allergy (Unknown, Verified 11/11/23 08:50) UNKNOWN omalizumab [From Xolair] Adverse Reaction (Severe, Verified 11/11/23 08:50) Anaphylaxis equate cough drops sugar free Allergy (Mild, Uncoded 09/08/23 14:05) Unknown Medication List - Last Reconciled 11/11/23 by Thee Tay MD bisacodyl (Dulcolax (bisacodyl)) 10 mg (2 x 5 mg) PO BEDTIME 30 days dexlansoprazole (Dexilant) 60 mg PO DAILY 90 days epinephrine 0.3 mg (0.3 mL) IM Q10M PRN fluticasone propion-salmeterol 230-21 mcg/actuation (Advair HFA) 2 puffs inhalation Q12H 30 days fluticasone propionate 50 mcg/actuation (Flonase Allergy Relief) 2 sprays intranasal BID 90 days ipratropium-albuterol 0.5 mg-3 mg(2.5 mg base)/3 mL 3 mL inhalation Q4-6H PRN 30 days levothyroxine 175 mcg PO QAM 90 days lidocaine 5% (Lidoderm) 1 patch topical DAILY loratadine 10 mg PO DAILY 30 days lorazepam 0.5 mg PO BID PRN 15 days montelukast 10 mg PO DAILY naproxen 500 mg PO TID oxcarbazepine (Trileptal) 75 mg (1/2 x 150 mg) PO DAILY simethicone 180 mg PO QID 30 days sucralfate (Carafate) 5 mL PO QID Ventolin HFA 90 mcg/actuation (albuterol sulfate) 2 puffs inhalation Q4H NS Tobacco use date assessed: 10/22/23 Dental Screening Dental Screen Date: 10/22/23 HPI Goiter or TMJ flair up HPI Details Patient is a 53-year-old female she had endoscopy and colonoscopy After that she noticed a swelling left side of her neck She came in today for evaluation, however the swelling has resolved Patient says that endoscopy showed hiatal hernia And they were polyps removed through colonoscopy She has a follow-up appointment with gastroenterology coming up in few days Asthma is stable, patient has appointment with measurement specialist as well, long time ago she used to take allergy shots through assistant athletic trainer Then she stopped. She will discuss it further with Pulmonary if that is something that she should restart to control her asthmatic symptoms and allergies. Depression is stable patient is on Wellbutrin 150 mg, refill sent Hypothyroidism: Continue levothyroxine 175 mcg She is also on loratadine for allergies along with montelukast I would recommend to stop taking naproxen due to GERD symptoms PFSH Medical History Anemia Bronchitis due to COVID-19 virus COVID Acute pneumonia Work related injury Acute diarrhea Paresthesias in left hand Dysuria PFO (patent foramen ovale) Shortness of breath Community acquired pneumonia Hospital discharge follow-up Chronic idiopathic constipation Pre-op examination Encounter for routine gynecological examination LFT elevation Encounter for general adult medical examination with abnormal findings Respiratory tract congestion with cough Hospital discharge follow-up COVID-19 Tracheobronchitis COVID-19 Other specified hypothyroidism Colon cancer screening Iron deficiency anemia Shoulder pain, right Nausea and vomiting PFO (patent foramen ovale) History of transesophageal echocardiography (LAN) Colitis Abnormal angiogram of head COVID-19 Asthma Thyroid disease GERD (gastroesophageal reflux disease) Anemia Aneurysm Surgical History History of surgery of uterus H/O endoscopy History of H/O brain surgery History of colonoscopy Family History Father Diabetes Arthritis Diverticulitis Leukemia Mental health disorder Lung cancer Mother Anemia Arthritis Colon polyps Myocardial infarction Brother Crohn's disease Testicular cancer Brother Cancer Paternal Grandfather Leukemia Other Substance use disorder Social History Household Members: Significant Other Housing: House Are you a primary healthcare insurance sales agent to a significant other at home: No Do you presently have visiting nurse or other home services: No Alcohol intake: former Patient Tobacco Use Status: Former Tobacco user Tobacco use type: Cigarette Cigarettes Per Day: 10 e-Cigarette/Vaping Use: Never Used Advance Directives Date on File: 04/09/21 service: No 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al status: employed 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: [employer]/ right hand dominant Cognitive needs: No Hearing needs: No Vision needs: Yes Questionnaire PHQ-9 Over the last 2 weeks, how often have you been bothered by any of the following problems? 1. Little interest or pleasure in doing things: several days 2. Feeling down, depressed, or hopeless: several days 3. Trouble falling or staying asleep, or sleeping too much: several days 4. Feeling tired or having little energy: several days 5. Poor appetite or overeating: not at all 6. Feeling bad about yourself - or that you are a failure or have let yourself or your family down: not at all 7. Trouble concentrating on things, such as reading the newspaper or watching television: not at all 8. Moving or speaking so slowly that other people could have noticed. Or the opposite - being so fidgety or restless that you have been moving around a lot more than usual: not at all 9. Thoughts that you would be better off or of hurting yourself in some way: not at all Total score: 4 Depression Screening Interpretation: Negative Depression Screening Done: Yes 82024 - PHQ-9 Billing: Yes Source: Developed by Drs. Masood Arredondo, Lesly Pruitt, Thor Del Cid and colleagues, with an educational phil from [employer]. Thrive Questionnaire Date Thrive assessed: 11/11/23 I am a: Patient What is your living situation today?: I have a steady place to live Within the past 12 months, did the food you bought not last and you didn't have the money to get more?: Sometimes True Within the past 12 months, did you worry whether your food would run out before you got money to buy more?: Sometimes True Do you have trouble paying for medicines?: No Do you have trouble getting transportation to medical appointments?: No Do you have trouble paying your heating and electricity bill?: No Do you have trouble taking care of your child, family member or friend?: No Do you have trouble with day-to-day activities such as bathing, preparing meals, shopping, managing finances, etc.?: No Are you currently unemployed and looking for a job?: No Are you interested in more education?: No Please select the resources that you would like help with: Housing/Correction Currently or been in a relationship where the following occur: No concerns reported THRIVE Score: 2 AUDIT C Alcohol Use Questionnaire (AUDIT-C) 1. How often do you have a drink containing alcohol?: Monthly or less 2. How many drinks containing alcohol do you have on a typical day when you are drinking?: 1 or 2 3. How often do you have six or more drinks on one occasion?: Never Total Score: 1 Score Reviewed/Action Taken: Yes MARKO-7 AMB Questionnaire MARKO-7 Date MARKO - 7 assessed: 11/11/23 Feeling nervous, anxious, or on edge: 2 = More than half the days Not being able to stop or control worryin = Several days Worrying too much about different things: 1 = Several days Trouble relaxin = Several days Being so restless that it is hard to sit still: 0 = Not at all Becoming easily annoyed or irritable: 0 = Not at all Source: Developed by Drs. Masood Arredondo, Lesly Pruitt, Thor Del Cid and colleagues, with an educational phil from [employer]. MARKO-7 Assessment Billing MARKO-7 Assessment Tool: MARKO-7 Assessment 34318 Review of Systems Const Denies chills and Denies fever(s) ENT Denies epistaxis and Denies nasal discharge Card Denies chest pain Resp Denies chest congestion, Denies cough and Denies hemoptysis GI Denies diarrhea and Denies nausea Skin/Breast Denies rash Neuro Reports no additional complaints Psych Reports no additional complaints Endo Reports no additional complaints Physical exam (Primary Care) Vital Signs: Last Vital Signs Pulse 72 11/11/23 08:49 BP 130/80 11/11/23 08:49 Pulse Ox 98 11/11/23 08:49 BMI result Body Mass Index 35.6 Tobacco/Smoking Status: Tobacco use Status Tobacco use date assessed 10/22/23 11/11/23 08:51 Patient Tobacco Use Status Former Tobacco user 11/11/23 08:51 Tobacco use type Cigarette 11/11/23 08:51 e-Cigarette/Vaping Use Never Used 11/11/23 08:51 PHQ-9: PHQ-9 Score PHQ-9: Total score 4 11/11/23 09:08 Depression Screening Interpretation: Negative Thrive Assessment: Date of Thrive Assessment Date Thrive assessed 11/11/23 11/11/23 08:51 Currently or been in a relationship where the following occur: No concerns reported Const General: cooperative, comfortable and no acute distress Orientation/consciousness: patient oriented x3 HENMT Head: Yes normocephalic Eyes General: appearance normal, both eyes and all related structures Neck Neck: Yes supple Resp Effort & Inspection: normal respiratory effort, no cough and no stridor Cardio Rhythm: regular rhythm Heart sounds: S1 normal heart sound present and S2 normal heart sound present Skin General skin exam: turgor normal Neuro General: patient oriented x3, tone normal and moves all extremities Extrem Right lower extremity: no edema Left lower extremity: no edema Assessment and Plan Assessment & Plan (1) Major depression, recurrent: Code(s): F33.9 - Major depressive disorder, recurrent, unspecified Qualifiers: Active/Remission status: currently active Major depression episode severity: moderate Qualified Code(s): F33.1 - Major depressive disorder, recurrent, moderate (2) Asthma, severe persistent: Code(s): J45.50 - Severe persistent asthma, uncomplicated Qualifiers: Asthma complication type: uncomplicated Qualified Code(s): J45.50 - Severe persistent asthma, uncomplicated (3) Environmental allergies: Code(s): Z91.09 - Other allergy status, other than to drugs and biological substances (4) GERD (gastroesophageal reflux disease): Code(s): K21.9 - Gastro-esophageal reflux disease without esophagitis Qualifiers: Esophagitis presence: without esophagitis Qualified Code(s): K21.9 - Gastro-esophageal reflux disease without esophagitis Plan Patient is a 53-year-old female day she had endoscopy and colonoscopy After that she noticed a swelling left side of her neck She came in today for evaluation, however the swelling has resolved Patient says that endoscopy showed hiatal hernia And they were polyps removed through colonoscopy She has a follow-up appointment with gastroenterology coming up in few days Asthma is stable, patient has appointment with measurement specialist as well, long time ago she used to take allergy shots through assistant athletic trainer Then she stopped. She will discuss it further with Pulmonary if that is something that she should restart to control her asthmatic symptoms and allergies. Depression is stable patient is on Wellbutrin 150 mg, refill sent Hypothyroidism: Continue levothyroxine 175 mcg She is also on loratadine for allergies along with montelukast I would recommend to stop taking naproxen due to GERD symptoms Medications: Refilled bupropion HCl SR (Wellbutrin SR) 150 mg PO QAM 90 tabs 0RF Coding Level of Care Code Est Pt Level 4 (79900) Complex EM visit Add On G2211 Diagnoses Moderate episode of recurrent major depressive disorder F33.1 Active/Remission status: currently active Major depression episode severity: moderate Severe persistent asthma without complication J45.50 Asthma complication type: uncomplicated Environmental allergies Z91.09 Gastroesophageal reflux disease without esophagitis K21.9 Esophagitis presence: without esophagitis Additional Codes MARKO-7 Assessment Billing - MARKO-7 Assessment Tool: MARKO-7 Assessment 33812 ([id number])
== END 2023-11-11 09:25 | disposition home or self-care (01) ==
PROVIDERS: Visit Provider Internal Medicine
DX: J45.50 Severe persistent asthma, uncomplicated (principal); F33.1 Major depressive disorder, recurrent, moderate; Z91.09 Other allergy status, other than to drugs and biological substances; K21.9 Gastro-esophageal reflux disease without esophagitis
CPT/HCPCS: 99214; G2211

== ENCOUNTER 2023-11-13 12:40 | Outpatient (AMB) | payer OTHER, SELFPAY ==
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
== END 2023-11-13 12:58 | disposition home or self-care (01) ==
LOC: HO.HOP 12:40
PROVIDERS: PCP Internal Medicine; Visit Provider Clinical Nurse Specialist Psychiatric/Mental Health
DX: F60.3 Borderline personality disorder (principal); F33.1 Major depressive disorder, recurrent, moderate; F43.10 Post-traumatic stress disorder, unspecified; Z63.4 Disappearance and death of family member; F40.01 Agoraphobia with panic disorder
CPT/HCPCS: 99214

== ENCOUNTER → 2023-11-13 12:40 | Outpatient (BNVA) | payer OTHER, SELFPAY | PROVIDERS: PCP Internal Medicine; Visit Provider Clinical Nurse Specialist Psychiatric/Mental Health | DX: F33.1 Major depressive disorder, recurrent, moderate (principal); F43.10 Post-traumatic stress disorder, unspecified; F60.3 Borderline personality disorder; F40.01 Agoraphobia with panic disorder; Z63.4 Disappearance and death of family member | CPT/HCPCS: 99212 ==

== ENCOUNTER 2023-11-17 08:00 | Outpatient (RCR) | payer OTHER, SELFPAY ==
--- NOTE | 2023-07-07 09:53 | MHC.PT.EP ---
[facility] [place] Office [place] Office [place] Office [address] Martin Jennings [address] [phone] F: [phone] F: [phone] F: [phone] F: [phone] Physical Therapy Plan of Care Date of Evaluation: 07/07/23 Date of Surgery: n/a Diagnosis: fx of surgical neck of L humerus Assessment: Patient is a 53 year old female presenting to PT with complaints of pain in her L shoulder. Pt reports onset of pain began 05/31/2023 due to falling on her shoulder. She presents today with impairments in pain, ROM, strength, posture. 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 Clinical presentation today is most consistent with signs and sx associated with fx of surgical neck of L humerus and pt will benefit from skilled PT 2 week x 8 weeks to address the following problems and impairments noted upon evaluation: pain, ROM, strength, posture. These problems limit the patient with the following functional activities: reaching, lifting, ADLs, work. The prescribed treatment plan of care is medically necessary. Co-morbidities of none were identified and taken into considerations of plan of care. Pt was educated on HEP, role of PT, prognosis, POC. Frequency and Duration: The patient will be seen 2 x week x 6 weeks Short Term Goals: Pt will demonstrate symmetrical elbow ROM in 3 weeks. Pt will demonstrate improved shoulder flexion by 30 degrees in 3 weeks. Pt will demonstrate less pain at rest to <3/10 in 3 weeks. Pt will demonstrate improved L shoulder flexion ROM to 100 in 5 weeks. Pt will demonstrate L shoulder abduction ROM to 100 in 5 weeks. Active Directory Specialist Goals: Pt will demonstrate improved SPADI score by 13 points in 8 weeks for improved functional mobility. Pt will demonstrate L shoulder ROM symmetrical in 8 weeks for improved ability to reach. Pt will demonstrate L shoulder MMT strength at least 4/5 in 8 weeks pending MD clearance for improved ability to work. Treatment Plan: Modalities to reduce pain, spasms and effusion. Manual therapy to restore motion and function. Therapeutic exercise to improve strength and flexibility. Neuromuscular re-education for posture and balance. Therapeutic activities to return to functional activities of daily living. Electronically signed by: Estela Hernandez, PT, DPT, ATC Please sign and return to therapist. Thank you for your referral.
--- NOTE | 2023-12-11 08:06 | MHC.PT.DC ---
[facility] [place] Office [place] Office [place] Office [address] Martin Jennings [address] [phone] F: [phone] F: [phone] F: [phone] F: [phone] Physical Therapy Discharge Report Diagnosis: fx of surgical neck of L humerus Date of Surgery: n/a Date of Evaluation: 07/07/23 Date of Discharge: 12/11/23 Treatments to Date: 25 Cancellations to Date: 14 No Shows to Date: 0 Discharge Status: Improved Function Discharge Summary: Pt had to cancel last appointment due to illness and unfortunately end date has now passed. Pt was nearing end of POC anyway and now will be d/c. Electronically signed by: Estela Hernandez, PT, DPT, ATC Please sign and return to therapist. Thank you for your referral.
== END 2023-12-11 08:06 | disposition home or self-care (01) ==
LOC: HO.PTCHIC 08:00
PROVIDERS: PCP Internal Medicine; Visit Provider Physician Assistant
DX: S42.212D Unspecified displaced fracture of surgical neck of left humerus, subsequent encounter for fracture with routine healing (principal)
CPT/HCPCS: 97110; 97161; 97530

== ENCOUNTER 2023-11-19 11:10 | Outpatient (AMB) | payer OTHER, SELFPAY ==
--- NOTE | 2023-11-19 11:15 | A.OFFVIS_ITS ---
Vital Signs 11/19/23 11:16 Height 5 ft 5 in Weight 214 lb 11.684 oz BMI 35.7 BP 134/84 Blood Pressure Location Rt brachial Position Sitting Pulse 86 Pulse Source Pulse Oximeter Pulse Oximetry (%) 96 Oxygen Delivery Method Room Air Intake Visit Reasons: S/p egd/colon Allergies niacin [Niaspan Extended-Release] Allergy (Intermediate, Verified 11/19/23 11:15) skin blisters tramadol Allergy (Intermediate, Verified 11/19/23 11:15) seizures barley [BARLEY] Allergy (Unknown, Verified 11/19/23 11:15) UNKNOWN fluticasone [Advair Diskus] Allergy (Unknown, Verified 11/19/23 11:15) Shortness of Breath ibuprofen Allergy (Unknown, Verified 11/19/23 11:15) Swelling naratriptan Allergy (Unknown, Verified 11/19/23 11:15) unknown Penicillins [PENICILLINS] Allergy (Unknown, Verified 11/19/23 11:15) Unknown sumatriptan Allergy (Unknown, Verified 11/19/23 11:15) unknown trazodone [TRAZODONE] Allergy (Unknown, Verified 11/19/23 11:15) UNKNOWN omalizumab [From Xolair] Adverse Reaction (Severe, Verified 11/19/23 11:15) Anaphylaxis equate cough drops sugar free Allergy (Mild, Uncoded 09/08/23 14:05) Unknown HPI HPI S/p egd/colon: Details: Assessment & Plan (1) Chronic idiopathic constipation: Code(s): K59.04 - Chronic idiopathic constipation Category: Medical (2) Diverticulitis: Code(s): K57.92 - Diverticulitis of intestine, part unspecified, without perforation or abscess without bleeding Category: Medical (3) GERD (gastroesophageal reflux disease): Code(s): K21.9 - Gastro-esophageal reflux disease without esophagitis Category: Medical Plan She is doing well now. The Colace was not helpful and she ended up going in buying [id number] bisacodyl which I think is the pill she was trying to describe to me. She would received 4 for the colonoscopy prep but I will extend this prescription so she can use it daily. She is now doing very well on her simethicone and her Dexilant. With this and the bisacodyl she is quite satisfied with her GI regimen. Return office visit in October after her colonoscopy Medications: Changed From bisacodyl (Dulcolax (bisacodyl)) 10 mg (2 x 5 mg) PO BEDTIME 2 days 4 tabs 0RF K59.04 - Chronic idiopathic constipation To bisacodyl (Dulcolax (bisacodyl)) 10 mg (2 x 5 mg) PO BEDTIME 60 tabs 6RF 30 days K59.04 - Chronic idiopathic constipation Discontinued docusate sodium (Colace) Discontinued Reason: Doctor's Order 100 mg PO .DAILY WITH FOOD 30 days 30 caps 6RF . EGD/COLONOSCOPY 11/05/23 Findings: Larynx:normal Esophagus: GE junction at 36 cm, diaphragm hiatus at 38 cm, consistent with 2 cm sliding hiatal hernia, bx taken from GEJ, distal and proximal esophagusb Stomach: mild erythema. Biopsies were obtained. Grade 2 flap valve on retroflexed examination of the cardia. Duodenum: Normal bulb and descending duodenum, Findings: melanosis coli noted-tortuous colon, reduced motility Terminal Ileum-normal Cecum:normal Ascending Colon: normal Transverse Colon -normal Descending Colon:normal Sigmoid Colon: normal Rectum: Retroflexion with medium sized internal hemorrhoids, grade I, 7-9 mm sessile polyp removed with cold snare Anorectum - normal Impression and Post Procedure Diagnosis: Endoscopy Findings: hiatal hernia mild gastritis Colonoscopy Findings: melanosis coli tortuous colon possible colonic dysmotility colon polyp internal hemorrhoids Plan: Await Pathology results Repeat Colonoscopy in 5-7 years if adenomatous polyp, 10 yrs if hyperplastic or earlier if clinically indicated High fiber diet leaflet avoid straining at stool, epsom salts and sitz bath, anusol supps or cream GERD precautions BIOPSY Received: 11/05/23 Diagnosis A. Colon, rectal polyp: Hyperplastic polyp with scattered foamy lamina propria macrophages. B. Stomach, biopsy: Gastric antral/ body mucosa with congestion, mild reactive changes, and focal minimal chronic inactive inflammation; negative for H pylori, intestinal metaplasia and dysplasia. C. Gastroesophageal junction, biopsy: Squamocolumnar mucosa with minimal chronic inflammation; negative for intestinal metaplasia and dysplasia. D. Esophagus, distal, biopsy: Squamous mucosa with no specific change; no columnar mucosa present. E. Esophagus, proximal, biopsy: Squamous mucosa with no specific change; no columnar mucosa present TODAY'S VISIT She feels she was sent home too soon after the procedure, (she feels that our [facility] [place] rushing them) and she was having N/V, CP, sore throat and she ended up in the ER - she was sent from there with carafate. She feels she can't breath if she wears a bra and she gets pain in the LUQ. She was given the FODMAP diet and now I can't tolerate dairy, it will clean out my system. I have never heard reported case of suddenly developing food intolerances after procedure, hopefully this will normalize over time and it may just be that her colon is a bit upset. JTV 6 weeks, sent Carafate to [facility] [place]. Given the fact that she now feels feel for procedures we might want to up for Cologuard in the future. [facility] Medical History (Updated 11/19/23 @ 14:38 by DOT Horn) Colon cancer screening Left sided abdominal pain Influenza A H1N1 infection Stool incontinence Shoulder pain Anemia Bronchitis due to COVID-19 virus COVID Acute pneumonia Work related injury Acute diarrhea Paresthesias in left hand Dysuria PFO (patent foramen ovale) Shortness of breath Community acquired pneumonia Hospital discharge follow-up Chronic idiopathic constipation Pre-op examination Encounter for routine gynecological examination LFT elevation Encounter for general adult medical examination with abnormal findings Respiratory tract congestion with cough Hospital discharge follow-up COVID-19 Tracheobronchitis COVID-19 Other specified hypothyroidism Iron deficiency anemia Shoulder pain, right Nausea and vomiting PFO (patent foramen ovale) History of transesophageal echocardiography (LAN) Colitis Abnormal angiogram of head COVID-19 Asthma Thyroid disease GERD (gastroesophageal reflux disease) Anemia Aneurysm Surgical History History of surgery of uterus H/O endoscopy History of H/O brain surgery History of colonoscopy Family History Father Diabetes Arthritis Diverticulitis Leukemia Mental health disorder Lung cancer Mother Anemia Arthritis Colon polyps Myocardial infarction Brother Crohn's disease Testicular cancer Brother Cancer Paternal Grandfather Leukemia Other Substance use disorder Social History Household Members: Significant Other Housing: House Are you a primary resident care aid to a significant other at home: No Do you presently have visiting nurse or other home services: No Alcohol intake: former Patient Tobacco Use Status: Former Tobacco user Tobacco use type: Cigarette Cigarettes Per Day: 10 e-Cigarette/Vaping Use: Never Used Advance Directives Date on File: 04/09/21 service: No 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al status: employed 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: [employer]/ right hand dominant Cognitive needs: No Hearing needs: No Vision needs: Yes Review of Systems Const Denies fatigue, Denies fever(s), Denies night sweats, Denies poor appetite and Denies weight loss ENT Reports Normal hearing present, Denies dental pain, Denies dysphagia, Denies hearing loss, Denies mouth pain, Denies odynophagia, Reports sore throat, Denies throat swelling, Denies tongue swelling and Reports other (Dentition adequate) Card Reports chest pain Resp Details: Difficulty breathing when she wears a bra GI Details: Denies abdominal pain, Denies melena, Reports bloating, Denies hematochezia, Reports constipation, Denies GI cramping, Denies dysphagia, Denies excessive flatus, Denies early satiety, Reports heartburn, Denies diarrhea, Reports nausea, Denies odynophagia, Reports vomiting and Denies hematemesis Skin/Breast Denies pruritus, Denies lesions, Denies rash and Denies jaundice Neuro Reports Normal hearing present, Denies Abnormal speech present and Reports memory loss Psych Reports anxiety, Reports memory loss and Reports panic attacks Endo Denies fatigue Aller/Immun Denies throat swelling and Denies tongue swelling Physical Exam Vital Signs: Last Vital Signs Pulse 86 11/19/23 11:16 BP 134/84 11/19/23 11:16 Pulse Ox 96 11/19/23 11:16 Oxygen Delivery Method Room Air 11/19/23 11:16 BMI result Body Mass Index 35.7 Const General: cooperative, no acute distress, well developed and well groomed Nutritional Appearance: well nourished and obese Orientation/consciousness: oriented to person, oriented to place and oriented to time Limitations: No language barrier and other limitations HEENT Head: Yes normocephalic and Yes atraumatic Eyes General: appearance normal, both eyes and all related structures Pupils: Equal, round and reactive pupils present Neck Neck: Yes normal visual inspection and Yes no lymphadenopathy Thyroid: Thyroid normal Resp Effort & Inspection: normal respiratory effort and able to speak in complete sentences Auscultation: clear to auscultation bilaterally Cardio Rate: regular rate Rhythm: regular rhythm Heart sounds: Normal, physiologic split S2 sound present Peripheral pulses: radial pulses present and posterior tibial pulses present GI Inspection: No distended, Yes Abdominal panniculus present and Yes obesity Palpation (GI): Soft to palpation, nontender, no guarding, not rigid and No hepatosplenomegaly present Percussion: Yes normal to percussion Auscultation: normal bowel sounds Rectal Exam - Female: deferred Skin General skin exam: no rashes or lesions noted, turgor normal, skin not dry, no jaundice, No spider nevi and no striae Rashes: no rashes Nails: normal Neuro General: oriented to person, oriented to place and oriented to time Cranial nerves: Yes Equal, round and reactive pupils present and Yes Normal hearing present Speech: No Abnormal speech present Extrem General: Yes normal to inspection, No clubbing, No cyanosis and No edema Psych Appearance: grossly normal and well kempt Mental Status: mental status grossly normal Speech and movement: Pressured speech present Affect: Anxious affect present Attitude: cooperative Thought process: Circumstantial thought process present and not confabulating Thought content: Normal thought content present Insight: Limited insight present (Psych) Judgement: Limited judgement present (Psych) Results Reviewed Results Reviewed: EGD/COLONOSCOPY 11/05/23 Findings: Larynx:normal Esophagus: GE junction at 36 cm, diaphragm hiatus at 38 cm, consistent with 2 cm sliding hiatal hernia, bx taken from GEJ, distal and proximal esophagusb Stomach: mild erythema. Biopsies were obtained. Grade 2 flap valve on retroflexed examination of the cardia. Duodenum: Normal bulb and descending duodenum, Findings: melanosis coli noted-tortuous colon, reduced motility Terminal Ileum-normal Cecum:normal Ascending Colon: normal Transverse Colon -normal Descending Colon:normal Sigmoid Colon: normal Rectum: Retroflexion with medium sized internal hemorrhoids, grade I, 7-9 mm sessile polyp removed with cold snare Anorectum - normal Impression and Post Procedure Diagnosis: Endoscopy Findings: hiatal hernia mild gastritis Colonoscopy Findings: melanosis coli tortuous colon possible colonic dysmotility colon polyp internal hemorrhoids Plan: Await Pathology results Repeat Colonoscopy in 5-7 years if adenomatous polyp, 10 yrs if hyperplastic or earlier if clinically indicated High fiber diet leaflet avoid straining at stool, epsom salts and sitz bath, anusol supps or cream GERD precautions BIOPSY Received: 11/05/23 Diagnosis A. Colon, rectal polyp: Hyperplastic polyp with scattered foamy lamina propria macrophages. B. Stomach, biopsy: Gastric antral/ body mucosa with congestion, mild reactive changes, and focal minimal chronic inactive inflammation; negative for H pylori, intestinal metaplasia and dysplasia. C. Gastroesophageal junction, biopsy: Squamocolumnar mucosa with minimal chronic inflammation; negative for intestinal metaplasia and dysplasia. D. Esophagus, distal, biopsy: Squamous mucosa with no specific change; no columnar mucosa present. E. Esophagus, proximal, biopsy: Squamous mucosa with no specific change; no columnar mucosa present Assessment & Plan Assessment & Plan (1) Esophagitis: Code(s): K20.90 - Esophagitis, unspecified without bleeding Category: Medical (2) GERD (gastroesophageal reflux disease): Code(s): K21.9 - Gastro-esophageal reflux disease without esophagitis Category: Medical Qualifiers: Esophagitis presence: without esophagitis Qualified Code(s): K21.9 - Gastro-esophageal reflux disease without esophagitis (3) Abdominal bloating: Code(s): R14.0 - Abdominal distension (gaseous) Category: Medical (4) Chronic idiopathic constipation: Code(s): K59.04 - Chronic idiopathic constipation Category: Medical (5) Colon cancer screening: Comment: Given her severe anxiety consider Cologuard in the future going forwardaeb Code(s): Z12.11 - Encounter for screening for malignant neoplasm of colon Category: Medical Plan She feels she was sent home too soon after the procedure, (she feels that [place] [facility] [place]) and she was having N/V, CP, sore throat and she ended up in the ER - she was sent from there with carafate. She feels she can't breath if she wears a bra and she gets pain in the LUQ. She was given the FODMAP diet and now I can't tolerate dairy, it will clean out my system. I have never heard reported case of suddenly developing food intolerances after procedure, hopefully this will normalize over time and it may just be that her colon is a bit upset. ROV 6 weeks, sent Carafate to [facility] [place]. Given the fact that she now feels feel for procedures we might want to up for Cologuard in the future. Medications: New sucralfate (Carafate) 10 mL PO BID 1,000 mL 3RF K20.90 - Esophagitis, unspecified without bleeding Refilled simethicone after meals 180 mg PO QID 120 caps 6RF 30 days dexlansoprazole (Dexilant) 60 mg PO DAILY 90 caps 3RF 90 days K21.9 - Gastro- esophageal reflux disease without esophagitis Coding Level of Care Code Est Pt Level 3 (52140) Diagnoses Esophagitis K20.90 Gastroesophageal reflux disease without esophagitis K21.9 Esophagitis presence: without esophagitis Abdominal bloating R14.0 Chronic idiopathic constipation K59.04 Colon cancer screening Z12.11
--- NOTE | 2023-11-19 11:15 | MHC.OFFVIS ---
Vital Signs 11/19/23 11:16 Height 5 ft 5 in Weight 214 lb 11.684 oz BMI 35.7 BP 134/84 Blood Pressure Location Rt brachial Position Sitting Pulse 86 Pulse Source Pulse Oximeter Pulse Oximetry (%) 96 Oxygen Delivery Method Room Air Intake Visit Reasons: S/p egd/colon Intake Note: Berenice presents in office today for a scheduled post op FUV. CC; Pt reports that they did experience complications post op. Pt was seen in the ED the following day. Pt had been experiencing chest pain, SOB, nausea/vomiting. Pt was sent home with carafate with did improve their sx. Pt also reports that they have been having some difficulties with SOB to this point and have not been able to wear a bra due to the feeling of not being able to breathe. Pt also reports that the ED MD had mentioned that the egd had caused severe inflammation and irritation to the esophagus that is atypical of egd. 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 Pt would like to continue this medication if possible. Pt also reports having difficulties with dairy since starting the FODMAP diet. Pt is confused because they have never had issues with lactose in the past and they are not sure why that would be the case now. Window/Distribution Clerk Required: No Allergies niacin [Niaspan Extended-Release] Allergy (Intermediate, Verified 11/19/23 11:15) skin blisters tramadol Allergy (Intermediate, Verified 11/19/23 11:15) seizures barley [BARLEY] Allergy (Unknown, Verified 11/19/23 11:15) UNKNOWN fluticasone [Advair Diskus] Allergy (Unknown, Verified 11/19/23 11:15) Shortness of Breath ibuprofen Allergy (Unknown, Verified 11/19/23 11:15) Swelling naratriptan Allergy (Unknown, Verified 11/19/23 11:15) unknown Penicillins [PENICILLINS] Allergy (Unknown, Verified 11/19/23 11:15) Unknown sumatriptan Allergy (Unknown, Verified 11/19/23 11:15) unknown trazodone [TRAZODONE] Allergy (Unknown, Verified 11/19/23 11:15) UNKNOWN omalizumab [From Xolair] Adverse Reaction (Severe, Verified 11/19/23 11:15) Anaphylaxis equate cough drops sugar free Allergy (Mild, Uncoded 09/08/23 14:05) Unknown [facility] Medical History Anemia Bronchitis due to COVID-19 virus COVID Acute pneumonia Work related injury Acute diarrhea Paresthesias in left hand Dysuria PFO (patent foramen ovale) Shortness of breath Community acquired pneumonia Hospital discharge follow-up Chronic idiopathic constipation Pre-op examination Encounter for routine gynecological examination LFT elevation Encounter for general adult medical examination with abnormal findings Respiratory tract congestion with cough Hospital discharge follow-up COVID-19 Tracheobronchitis COVID-19 Other specified hypothyroidism Colon cancer screening Iron deficiency anemia Shoulder pain, right Nausea and vomiting PFO (patent foramen ovale) History of transesophageal echocardiography (LAN) Colitis Abnormal angiogram of head COVID-19 Asthma Thyroid disease GERD (gastroesophageal reflux disease) Anemia Aneurysm Surgical History History of surgery of uterus H/O endoscopy History of H/O brain surgery History of colonoscopy Family History Father Diabetes Arthritis Diverticulitis Leukemia Mental health disorder Lung cancer Mother Anemia Arthritis Colon polyps Myocardial infarction Brother Crohn's disease Testicular cancer Brother Cancer Paternal Grandfather Leukemia Other Substance use disorder Social History Household Members: Significant Other Housing: House Are you a primary customer care consultant to a significant other at home: No Do you presently have visiting nurse or other home services: No Alcohol intake: former Patient Tobacco Use Status: Former Tobacco user Tobacco use type: Cigarette Cigarettes Per Day: 10 e-Cigarette/Vaping Use: Never Used Advance Directives Date on File: 04/09/21 service: No 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al status: employed 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: [employer]/ right hand dominant Cognitive needs: No Hearing needs: No Vision needs: Yes 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
[2023-11-19 11:16] VITALS: BP 134/84; PULSE 86; O2SAT 96; BMI 35.7
== END 2023-11-19 11:57 | disposition home or self-care (01) ==
PROVIDERS: PCP Internal Medicine; Visit Provider Nurse Practitioner
DX: K20.90 Esophagitis, unspecified without bleeding (principal); K21.9 Gastro-esophageal reflux disease without esophagitis; R14.0 Abdominal distension (gaseous); K59.04 Chronic idiopathic constipation; Z12.11 Encounter for screening for malignant neoplasm of colon
CPT/HCPCS: 99213

== ENCOUNTER → 2023-11-19 11:10 | Outpatient (BNVA) | payer OTHER, SELFPAY | PROVIDERS: PCP Internal Medicine; Visit Provider Nurse Practitioner | DX: Z12.11 Encounter for screening for malignant neoplasm of colon (principal); K20.90 Esophagitis, unspecified without bleeding; K21.9 Gastro-esophageal reflux disease without esophagitis; K59.04 Chronic idiopathic constipation; R14.0 Abdominal distension (gaseous) | CPT/HCPCS: 99212 ==

== ENCOUNTER 2023-12-11 09:11 | Outpatient (AMB) | payer OTHER, SELFPAY ==
--- NOTE | 2023-12-11 09:18 | A.OFFVIS_ITS ---
Vital Signs 12/11/23 09:21 Height 5 ft 5 in Weight 214 lb BMI 35.6 Intake Visit Reasons: OV- Left Shoulder f/u Intake Note: Berenice is a 53 year old right hand dominant female who presents on the phone for a telehealth/follow up of left humeral neck fx, DOI 05/31/23. Patient reports she is doing good. She mentions some soreness. Allergies niacin [Niaspan Extended-Release] Allergy (Intermediate, Verified 12/11/23 09:20) skin blisters tramadol Allergy (Intermediate, Verified 12/11/23 09:20) seizures barley [BARLEY] Allergy (Unknown, Verified 12/11/23 09:20) UNKNOWN fluticasone [Advair Diskus] Allergy (Unknown, Verified 12/11/23 09:20) Shortness of Breath ibuprofen Allergy (Unknown, Verified 12/11/23 09:20) Swelling naratriptan Allergy (Unknown, Verified 12/11/23 09:20) unknown Penicillins [PENICILLINS] Allergy (Unknown, Verified 12/11/23 09:20) Unknown sumatriptan Allergy (Unknown, Verified 12/11/23 09:20) unknown trazodone [TRAZODONE] Allergy (Unknown, Verified 12/11/23 09:20) UNKNOWN omalizumab [From Xolair] Adverse Reaction (Severe, Verified 12/11/23 09:20) Anaphylaxis equate cough drops sugar free Allergy (Mild, Uncoded 09/08/23 14:05) Unknown HPI HPI OV- Left Shoulder f/u: Details: 53-year-old right hand dominant female who presents in the office today for a follow-up of left humeral neck fracture, which occurred on 05/31/2023 status post a mechanical fall injuring her left shoulder and elbow. I last saw the patient in the office on 11/06/2023 when she was encouraged to complete 10 sessions of PT and then follow-up to discuss her progression with anticipation that she may return to work at that time. ? ? While in the office today, the patient reports she is doing good but does have some soreness. ? [facility] Medical History (Updated 11/19/23 @ 14:38 by DOT Horn) Colon cancer screening Left sided abdominal pain Influenza A H1N1 infection Stool incontinence Shoulder pain Anemia Bronchitis due to COVID-19 virus COVID Acute pneumonia Work related injury Acute diarrhea Paresthesias in left hand Dysuria PFO (patent foramen ovale) Shortness of breath Community acquired pneumonia Hospital discharge follow-up Chronic idiopathic constipation Pre-op examination Encounter for routine gynecological examination LFT elevation Encounter for general adult medical examination with abnormal findings Respiratory tract congestion with cough Hospital discharge follow-up COVID-19 Tracheobronchitis COVID-19 Other specified hypothyroidism Iron deficiency anemia Shoulder pain, right Nausea and vomiting PFO (patent foramen ovale) History of transesophageal echocardiography (LAN) Colitis Abnormal angiogram of head COVID-19 Asthma Thyroid disease GERD (gastroesophageal reflux disease) Anemia Aneurysm Surgical History History of surgery of uterus H/O endoscopy History of H/O brain surgery History of colonoscopy Family History Father Diabetes Arthritis Diverticulitis Leukemia Mental health disorder Lung cancer Mother Anemia Arthritis Colon polyps Myocardial infarction Brother Crohn's disease Testicular cancer Brother Cancer Paternal Grandfather Leukemia Other Substance use disorder Social History Household Members: Significant Other Housing: House Are you a primary health care administrator to a significant other at home: No Do you presently have visiting nurse or other home services: No Alcohol intake: former Patient Tobacco Use Status: Former Tobacco user Tobacco use type: Cigarette Cigarettes Per Day: 10 e-Cigarette/Vaping Use: Never Used Advance Directives Date on File: 04/09/21 service: No 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al status: employed 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: [employer]/ right hand dominant Cognitive needs: No Hearing needs: No Vision needs: Yes Review of Systems Const All systems reviewed & are unremarkable except as noted in HPI and below Physical Exam Vital Signs: BMI result Body Mass Index 35.6 Const General: cooperative, healthy appearing and no acute distress Resp Effort & Inspection: normal respiratory effort and able to speak in complete sentences Cardio Rate: regular rate Peripheral pulses: Peripheral pulses 2+ throughout GI Palpation (GI): Soft to palpation Skin Lesions: no lesions Rashes: no rashes Extrem Other: Left shoulder: Full shoulder ROM in all planes. NVI. Assessment & Plan Assessment & Plan (1) Fracture of neck of left humerus: Onset Date: ~05/31/23 Code(s): S42.212A - Unspecified displaced fracture of surgical neck of left humerus, initial encounter for closed fracture Category: Medical Qualifiers: Encounter type: initial encounter Fracture type: closed Qualified Code(s): S42.212A - Unspecified displaced fracture of surgical neck of left humerus, initial encounter for closed fracture Plan Ms. Shepard is a 53-year-old right hand dominant female who presents in the office today for a follow-up of left humeral neck fracture, which occurred on 05/31/2023 status post a mechanical fall injuring her left shoulder and elbow. I last saw the patient in the office on 11/06/2023 when she was encouraged to complete 10 sessions of PT and then follow-up to discuss her progression with anticipation that she may return to work at that time. ? ? While in the office today, the patient reports she is doing good but does have some soreness.? ? 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 Follow-up will be PRN, or sooner if needed. ? Patient Instructions: Scribed by Kacie Hastings medical service technician, for Tiffany Camarillo PA-C on 12/11/2023 at 9:57 am, EST.? Coding Level of Care Code Est Pt Level 3 (16332) Diagnoses Closed fracture of neck of left humerus, initial encounter S42.212A Encounter type: initial encounter Fracture type: closed
[2023-12-11 09:21] VITALS: BMI 35.6
== END 2023-12-11 09:30 | disposition home or self-care (01) ==
LOC: HO.HOS 09:11
PROVIDERS: PCP Internal Medicine; Visit Provider Physician Assistant
DX: S42.212A Unspecified displaced fracture of surgical neck of left humerus, initial encounter for closed fracture (principal)
CPT/HCPCS: 99213

== ENCOUNTER → 2023-12-11 09:11 | Outpatient (BNVA) | payer OTHER, SELFPAY | PROVIDERS: PCP Internal Medicine; Visit Provider Physician Assistant | DX: S42.212D Unspecified displaced fracture of surgical neck of left humerus, subsequent encounter for fracture with routine healing (principal) | CPT/HCPCS: 99212 ==

== ENCOUNTER 2023-12-25 13:49 | Outpatient (AMB) | payer OTHER, SELFPAY ==
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
== END 2023-12-25 14:21 | disposition home or self-care (01) ==
LOC: HO.HOP 13:49
PROVIDERS: PCP Internal Medicine; Visit Provider Clinical Nurse Specialist Psychiatric/Mental Health
DX: F40.01 Agoraphobia with panic disorder (principal); F60.3 Borderline personality disorder; F43.10 Post-traumatic stress disorder, unspecified; F33.1 Major depressive disorder, recurrent, moderate
CPT/HCPCS: 99214

== ENCOUNTER → 2023-12-25 13:49 | Outpatient (BNVA) | payer OTHER, SELFPAY | PROVIDERS: PCP Internal Medicine; Visit Provider Clinical Nurse Specialist Psychiatric/Mental Health | DX: F40.01 Agoraphobia with panic disorder (principal); F43.10 Post-traumatic stress disorder, unspecified; F60.3 Borderline personality disorder; F33.1 Major depressive disorder, recurrent, moderate | CPT/HCPCS: 99212 ==

== ENCOUNTER 2023-12-29 09:41 | Outpatient (AMB) | payer OTHER, SELFPAY ==
[2023-12-29 09:45] VITALS: BP 126/78; PULSE 75; O2SAT 97; BMI 36.1
--- NOTE | 2023-12-29 09:45 | A.OFFVIS_ITS ---
Vital Signs 12/29/23 09:45 Height 5 ft 5 in Weight 217 lb 2.485 oz BMI 36.1 BP 126/78 Blood Pressure Location Rt brachial Position Sitting Pulse 75 Pulse Source Doppler Pulse Oximetry (%) 97 Oxygen Delivery Method Room Air Intake Visit Reasons: Reschedule for Xolair reaction Allergies niacin [Niaspan Extended-Release] Allergy (Intermediate, Verified 12/11/23 09:20) skin blisters tramadol Allergy (Intermediate, Verified 12/11/23 09:20) seizures barley [BARLEY] Allergy (Unknown, Verified 12/11/23 09:20) UNKNOWN fluticasone [Advair Diskus] Allergy (Unknown, Verified 12/11/23 09:20) Shortness of Breath ibuprofen Allergy (Unknown, Verified 12/11/23 09:20) Swelling naratriptan Allergy (Unknown, Verified 12/11/23 09:20) unknown Penicillins [PENICILLINS] Allergy (Unknown, Verified 12/11/23 09:20) Unknown sumatriptan Allergy (Unknown, Verified 12/11/23 09:20) unknown trazodone [TRAZODONE] Allergy (Unknown, Verified 12/11/23 09:20) UNKNOWN omalizumab [From Xolair] Adverse Reaction (Severe, Verified 12/11/23 09:20) Anaphylaxis equate cough drops sugar free Allergy (Mild, Uncoded 09/08/23 14:05) Unknown HPI HPI Reschedule for Xolair reaction: Details: 53-year-old lady, nonsmoker, followed for underlying severe persistent asthma with allergic component. She has been using Xolair, Symbicort, duo nebs, and albuterol MDI with excellent control of her symptoms, unfortunately she did develop an allergic reaction to Xolair necessitating stopping it, thus her symptoms are not well controlled at this time. Though, she denies an acute exacerbation. [facility] Medical History (Updated 11/19/23 @ 14:38 by DOT Horn) Colon cancer screening Left sided abdominal pain Influenza A H1N1 infection Stool incontinence Shoulder pain Anemia Bronchitis due to COVID-19 virus COVID Acute pneumonia Work related injury Acute diarrhea Paresthesias in left hand Dysuria PFO (patent foramen ovale) Shortness of breath Community acquired pneumonia Hospital discharge follow-up Chronic idiopathic constipation Pre-op examination Encounter for routine gynecological examination LFT elevation Encounter for general adult medical examination with abnormal findings Respiratory tract congestion with cough Hospital discharge follow-up COVID-19 Tracheobronchitis COVID-19 Other specified hypothyroidism Iron deficiency anemia Shoulder pain, right Nausea and vomiting PFO (patent foramen ovale) History of transesophageal echocardiography (LAN) Colitis Abnormal angiogram of head COVID-19 Asthma Thyroid disease GERD (gastroesophageal reflux disease) Anemia Aneurysm Surgical History History of surgery of uterus H/O endoscopy History of H/O brain surgery History of colonoscopy Family History Father Diabetes Arthritis Diverticulitis Leukemia Mental health disorder Lung cancer Mother Anemia Arthritis Colon polyps Myocardial infarction Brother Crohn's disease Testicular cancer Brother Cancer Paternal Grandfather Leukemia Other Substance use disorder Social History Household Members: Significant Other Housing: House Are you a primary customer care specialist to a significant other at home: No Do you presently have visiting nurse or other home services: No Alcohol intake: former Patient Tobacco Use Status: Former Tobacco user Tobacco use type: Cigarette Cigarettes Per Day: 10 e-Cigarette/Vaping Use: Never Used Advance Directives Date on File: 04/09/21 service: No 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al status: employed 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: [employer]/ right hand dominant Cognitive needs: No Hearing needs: No Vision needs: Yes Review of Systems Const Denies daytime sleepiness, Denies excessive sweating, Denies fatigue, Denies fever(s), Denies lethargy, Denies malaise, Denies night sweats, Denies snoring and Denies weight loss Eyes Denies blurry vision and Denies itchy eyes ENT Denies nasal congestion, Denies post nasal drip, Denies sinus pain, Denies sinus pressure and Denies other ( Thrush) Card Denies chest pain, Denies pedal edema, Denies dyspnea, Denies orthopnea and Denies paroxysmal nocturnal dyspnea Resp Denies cough, Denies hemoptysis, Denies excessive phlegm production, Denies dyspnea, Denies snoring and Denies wheezing GI Denies abdominal pain and Denies heartburn Musc Denies myalgias, Denies arthralgias and Denies joint swelling Skin/Breast Denies rash Neuro Denies memory loss and Denies seizure-like activity Psych Denies abnormal sleep pattern, Denies anxiety and Denies memory loss Endo Denies excessive sweating, Denies fatigue and Denies heat intolerance Denny/Lymph Denies easy bruising Aller/Immun Denies itchy eyes, Denies seasonal rhinorrhea and Denies wheezing Physical Exam Vital Signs: Last Vital Signs Pulse 75 12/29/23 09:45 BP 126/78 12/29/23 09:45 Pulse Ox 97 12/29/23 09:45 Oxygen Delivery Method Room Air 12/29/23 09:45 BMI result Body Mass Index 36.1 Const General: no acute distress and alert Nutritional Appearance: not obese Orientation/consciousness: Other orientation findings ( oriented) HEENT Head: Yes atraumatic Eyes General: appearance normal, both eyes and all related structures Sclerae: sclerae normal EOM: EOMs intact bilaterally Neck Neck: Yes supple Lymphatic: no lymphadenopathy noted Resp Effort & Inspection: normal respiratory effort and no use of accessory muscles Auscultation: clear to auscultation bilaterally Cardio Rate: regular rate Rhythm: regular rhythm Heart sounds: no gallops, no murmurs and no rubs Skin General skin exam: other ( warm) Extrem General: No clubbing, No cyanosis and No edema Assessment & Plan Assessment & Plan (1) Asthma, severe persistent: Code(s): J45.50 - Severe persistent asthma, uncomplicated Category: Medical Qualifiers: Asthma complication type: uncomplicated Qualified Code(s): J45.50 - Severe persistent asthma, uncomplicated Plan: Suboptimal control off Xolair secondary to an allergic reaction to it. Continue Advair, DuoNeb, and albuterol MDI. Will request Dupixent approval. (2) Environmental allergies: Code(s): Z91.09 - Other allergy status, other than to drugs and biological substances Category: Medical Plan: Poor control off Xolair, expect to improve on Dupixent. Coding Level of Care Code Est Pt Level 4 (93017) Diagnoses Severe persistent asthma without complication J45.50 Asthma complication type: uncomplicated Environmental allergies Z91.09
== END 2023-12-29 09:57 | disposition home or self-care (01) ==
PROVIDERS: PCP Internal Medicine; Visit Provider Internal Medicine Pulmonary Disease
DX: J45.50 Severe persistent asthma, uncomplicated (principal); Z91.09 Other allergy status, other than to drugs and biological substances
CPT/HCPCS: 99214

== ENCOUNTER → 2023-12-29 09:41 | Outpatient (BNVA) | payer OTHER, SELFPAY | PROVIDERS: PCP Internal Medicine; Visit Provider Internal Medicine Pulmonary Disease | DX: J45.50 Severe persistent asthma, uncomplicated (principal); Z91.09 Other allergy status, other than to drugs and biological substances | CPT/HCPCS: 99212 ==

== ENCOUNTER 2024-01-07 09:21 | Outpatient (AMB) | payer OTHER, SELFPAY ==
[2024-01-07 09:44] VITALS: BP 138/78; PULSE 91; O2SAT 97
--- NOTE | 2024-01-07 09:44 | MHC.OFFVIS ---
Vital Signs 01/07/24 09:44 Weight 217 lb 2.485 oz BP 138/78 Blood Pressure Location Lt brachial Position Sitting Pulse 91 Pulse Source Pulse Oximeter Pulse Oximetry (%) 97 Oxygen Delivery Method Room Air Intake Visit Reasons: Dupixent teaching Allergies niacin [Niaspan Extended-Release] Allergy (Intermediate, Verified 01/07/24 10:10) skin blisters tramadol Allergy (Intermediate, Verified 01/07/24 10:10) seizures barley [BARLEY] Allergy (Unknown, Verified 01/07/24 10:10) UNKNOWN fluticasone [Advair Diskus] Allergy (Unknown, Verified 01/07/24 10:10) Shortness of Breath ibuprofen Allergy (Unknown, Verified 01/07/24 10:10) Swelling naratriptan Allergy (Unknown, Verified 01/07/24 10:10) unknown Penicillins [PENICILLINS] Allergy (Unknown, Verified 01/07/24 10:10) Unknown sumatriptan Allergy (Unknown, Verified 01/07/24 10:10) unknown trazodone [TRAZODONE] Allergy (Unknown, Verified 01/07/24 10:10) UNKNOWN omalizumab [From Xolair] Adverse Reaction (Severe, Verified 01/07/24 10:10) Anaphylaxis equate cough drops sugar free Allergy (Mild, Uncoded 01/07/24 10:10) Unknown Medication List - Last Reconciled 01/07/24 by Kristy Newberry LPN bisacodyl (Dulcolax (bisacodyl)) 10 mg (2 x 5 mg) PO BEDTIME 30 days bupropion HCl XL (Wellbutrin XL) 150 mg PO QAM dexlansoprazole (Dexilant) 60 mg PO DAILY 90 days dupilumab (Dupixent) 300 mg (2 mL) subcut Q2W 28 days epinephrine 0.3 mg (0.3 mL) IM Q10M PRN fluticasone propion-salmeterol 500-50 mcg/dose (Advair Diskus) 1 ea inhalation BID fluticasone propionate 50 mcg/actuation (Flonase Allergy Relief) 2 sprays intranasal BID 90 days ipratropium-albuterol 0.5 mg-3 mg(2.5 mg base)/3 mL 3 mL inhalation Q4-6H PRN 30 days levothyroxine 175 mcg PO QAM 90 days lidocaine 5% (Lidoderm) 1 patch topical DAILY loratadine 10 mg PO DAILY 30 days lorazepam 0.5 mg PO BID PRN 15 days montelukast 10 mg PO DAILY naproxen 500 mg PO TID oxcarbazepine (Trileptal) 150 mg PO BID simethicone 180 mg PO QID 30 days sucralfate (Carafate) 10 mL PO BID Ventolin HFA 90 mcg/actuation (albuterol sulfate) 2 puffs inhalation Q4H NS HPI HPI Dupixent teaching: Details: Berenice is here for a Dupixent teach she was educated on hand washing, injection preparation, administration, and disposal.?Berenice was able to return demonstrate proper technique for hand washing, injection preparation, administration and disposal of needle and states she has no questions at this time. Medication Dupixent 300mg/2mL pen injector (patient?s own meds) Loading dose of 600mg given by the patient in 2 SQ injections; injection #1 R abdomen;? injection #2 L abdomen Lot# [id number] expires 07/25/2025. Patient aware her next injection is in 15 days. Nurse visit only.? [facility] Medical History (Updated 11/19/23 @ 14:38 by [place]) Colon cancer screening Left sided abdominal pain Influenza A H1N1 infection Stool incontinence Shoulder pain Anemia Bronchitis due to COVID-19 virus COVID Acute pneumonia Work related injury Acute diarrhea Paresthesias in left hand Dysuria PFO (patent foramen ovale) Shortness of breath Community acquired pneumonia Hospital discharge follow-up Chronic idiopathic constipation Pre-op examination Encounter for routine gynecological examination LFT elevation Encounter for general adult medical examination with abnormal findings Respiratory tract congestion with cough Hospital discharge follow-up COVID-19 Tracheobronchitis COVID-19 Other specified hypothyroidism Iron deficiency anemia Shoulder pain, right Nausea and vomiting PFO (patent foramen ovale) History of transesophageal echocardiography (LAN) Colitis Abnormal angiogram of head COVID-19 Asthma Thyroid disease GERD (gastroesophageal reflux disease) Anemia Aneurysm Surgical History History of surgery of uterus H/O endoscopy History of H/O brain surgery History of colonoscopy Family History Father Diabetes Arthritis Diverticulitis Leukemia Mental health disorder Lung cancer Mother Anemia Arthritis Colon polyps Myocardial infarction Brother Crohn's disease Testicular cancer Brother Cancer Paternal Grandfather Leukemia Other Substance use disorder Social History Household Members: Significant Other Housing: House Are you a primary youth care worker to a significant other at home: No Do you presently have visiting nurse or other home services: No Alcohol intake: former Patient Tobacco Use Status: Former Tobacco user Tobacco use type: Cigarette Cigarettes Per Day: 10 e-Cigarette/Vaping Use: Never Used Advance Directives Date on File: 04/09/21 service: No 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al status: employed 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: [employer]/ right hand dominant Cognitive needs: No Hearing needs: No Vision needs: Yes Physical Exam Vital Signs: Last Vital Signs Pulse 91 01/07/24 09:44 BP 138/78 01/07/24 09:44 Pulse Ox 97 01/07/24 09:44 Oxygen Delivery Method Room Air 01/07/24 09:44 Assessment & Plan Assessment & Plan (1) Asthma, severe persistent: Code(s): J45.50 - Severe persistent asthma, uncomplicated Category: Medical Qualifiers: Asthma complication type: uncomplicated Qualified Code(s): J45.50 - Severe persistent asthma, uncomplicated Plan Dupixent teaching Coding Level of Care Code Established Pt Est Pt Level 1 (46614) Patient Type Established Diagnoses Severe persistent asthma without complication J45.50 Asthma complication type: uncomplicated Comment NURSE VISIT ONLY
== END 2024-01-07 10:06 | disposition home or self-care (01) ==
PROVIDERS: PCP Internal Medicine; Visit Provider Internal Medicine Pulmonary Disease
DX: J45.50 Severe persistent asthma, uncomplicated (principal)

== ENCOUNTER → 2024-01-07 09:21 | Outpatient (BNVA) | payer OTHER, SELFPAY | PROVIDERS: PCP Internal Medicine; Visit Provider Internal Medicine Pulmonary Disease | DX: Z71.89 Other specified counseling (principal); J45.50 Severe persistent asthma, uncomplicated | CPT/HCPCS: 99211 ==

== ENCOUNTER 2024-01-07 10:02 | Outpatient (AMB) | payer OTHER, SELFPAY ==
--- NOTE | 2024-01-07 10:07 | AM.OFFWIN_ITS ---
Intake Vital Signs 01/07/24 10:08 Height 5 ft 5 in Weight 212 lb BMI 35.3 BP 120/80 Blood Pressure Location Rt brachial Position Sitting Pulse 82 Pulse Source Pulse Oximeter Pulse Oximetry (%) 97 Oxygen Delivery Method Room Air Intake Visit Reasons: EP LT shoulder pain, old shoulder injury Intake Note: pt c/o LT shoulder pain. she has a previous injury to that shoulder after going back to work. pain radiates down the arm. Patient Tobacco Use Status: Former Tobacco user Allergies niacin [Niaspan Extended-Release] Allergy (Intermediate, Verified 01/07/24 10:10) skin blisters tramadol Allergy (Intermediate, Verified 01/07/24 10:10) seizures barley [BARLEY] Allergy (Unknown, Verified 01/07/24 10:10) UNKNOWN fluticasone [Advair Diskus] Allergy (Unknown, Verified 01/07/24 10:10) Shortness of Breath ibuprofen Allergy (Unknown, Verified 01/07/24 10:10) Swelling naratriptan Allergy (Unknown, Verified 01/07/24 10:10) unknown Penicillins [PENICILLINS] Allergy (Unknown, Verified 01/07/24 10:10) Unknown sumatriptan Allergy (Unknown, Verified 01/07/24 10:10) unknown trazodone [TRAZODONE] Allergy (Unknown, Verified 01/07/24 10:10) UNKNOWN omalizumab [From Xolair] Adverse Reaction (Severe, Verified 01/07/24 10:10) Anaphylaxis equate cough drops sugar free Allergy (Mild, Uncoded 01/07/24 10:10) Unknown Do you need a note to return to daycare/school/sports/work: No HPI HPI Comments History of Present Illness Details Patient is a 53-year-old femalewith a past medical history of a left humeral neck fracture which occurred on 05/31/2023 status post a mechanical fall injuring her left shoulder and elbow. Patient was evaluated by Orthopedics where she was encouraged to complete 10 sessions of PT, patient states she did not finish all of those sessions. 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 There was also a restriction on not lifting more than 10 lb. Her employer told her that they could not accommodate that restrictions so they kept her out of work until 5 days ago. When we she returns 5 days ago she was scheduled for 6-8 hour shifts and 31 hours per week which was above the restrictions. She states she completed a shift 5 days ago and has had a few shifts 3 and 4 days ago, and her left arm has been sore since then. She has been taking Tylenol and ibuprofen and using lidocaine patches but she states she has pain that radiates down her arm and it is difficult to lift anything. She denies any additional trauma to the arm. [facility] Medical History (Updated 11/19/23 @ 14:38 by [place]) Colon cancer screening Left sided abdominal pain Influenza A H1N1 infection Stool incontinence Shoulder pain Anemia Bronchitis due to COVID-19 virus COVID Acute pneumonia Work related injury Acute diarrhea Paresthesias in left hand Dysuria PFO (patent foramen ovale) Shortness of breath Community acquired pneumonia Hospital discharge follow-up Chronic idiopathic constipation Pre-op examination Encounter for routine gynecological examination LFT elevation Encounter for general adult medical examination with abnormal findings Respiratory tract congestion with cough Hospital discharge follow-up COVID-19 Tracheobronchitis COVID-19 Other specified hypothyroidism Iron deficiency anemia Shoulder pain, right Nausea and vomiting PFO (patent foramen ovale) History of transesophageal echocardiography (LAN) Colitis Abnormal angiogram of head COVID-19 Asthma Thyroid disease GERD (gastroesophageal reflux disease) Anemia Aneurysm Surgical History History of surgery of uterus H/O endoscopy History of H/O brain surgery History of colonoscopy Family History Father Diabetes Arthritis Diverticulitis Leukemia Mental health disorder Lung cancer Mother Anemia Arthritis Colon polyps Myocardial infarction Brother Crohn's disease Testicular cancer Brother Cancer Paternal Grandfather Leukemia Other Substance use disorder Social History Household Members: Significant Other Housing: House Are you a primary care assistant to a significant other at home: No Do you presently have visiting nurse or other home services: No Alcohol intake: former Patient Tobacco Use Status: Former Tobacco user Tobacco use type: Cigarette Cigarettes Per Day: 10 e-Cigarette/Vaping Use: Never Used Advance Directives Date on File: 04/09/21 service: No 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al status: employed 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: [employer]/ right hand dominant Cognitive needs: No Hearing needs: No Vision needs: Yes Review of Systems Const All systems reviewed & are unremarkable except as noted in HPI and below Physical Exam Vital Signs: Last Vital Signs Pulse 82 01/07/24 10:08 BP 120/80 01/07/24 10:08 Pulse Ox 97 01/07/24 10:08 Oxygen Delivery Method Room Air 01/07/24 10:08 BMI result Body Mass Index 35.3 Const General: cooperative, healthy appearing, comfortable, no acute distress and well developed Orientation/consciousness: patient oriented x3 Limitations: no limitations HEENT Head: Yes normal to inspection Ears: hearing grossly normal bilaterally General nose exam: Normal external nose present Face and sinus: Yes normal facial exam Eyes General: appearance normal, both eyes and all related structures Neck Neck: Yes normal visual inspection and Yes full ROM Resp Effort & Inspection: normal respiratory effort and able to speak in complete sentences Skin General skin exam: no rashes or lesions noted Neuro General: patient oriented x3 Extrem General: Yes normal to inspection Left upper extremity: shoulder/upper arm (NVI) Details: tenderness Location: of the proximal humerus and abnormal ROM (2/2 pain) Details: pain with active ROM Details: in ADduction and in internal rotation; no swelling, no abrasions, no lacerations, no ecchymosis and no deformity Assessment & Plan Assessment & Plan (1) Fracture of neck of left humerus: Onset Date: ~05/31/23 Code(s): S42.212A - Unspecified displaced fracture of surgical neck of left humerus, initial encounter for closed fracture Qualifiers: Encounter type: initial encounter Fracture type: closed Qualified Code(s): S42.212A - Unspecified displaced fracture of surgical neck of left humerus, initial encounter for closed fracture Plan: Recommended she schedule more physical therapy sessions as she did not complete the 10 sessions. Recommended resting and I gave her a work note so that she does not work more than 4-6 hour shifts and 20-24 hours per week but I kept her out for 5 working days. Recommended she follow up with her PCP or orthopedics at that point if she is still experiencing pain. Plan see above Coding Level of Care Code Est Pt Level 4 (92275) Diagnoses Closed fracture of neck of left humerus, initial encounter S42.212A Encounter type: initial encounter Fracture type: closed
[2024-01-07 10:08] VITALS: BP 120/80; PULSE 82; O2SAT 97; BMI 35.3
== END 2024-01-07 10:33 | disposition home or self-care (01) ==
PROVIDERS: PCP Internal Medicine; Visit Provider Physician Assistant
DX: S42.212A Unspecified displaced fracture of surgical neck of left humerus, initial encounter for closed fracture (principal)
CPT/HCPCS: 99214

== ENCOUNTER 2024-01-12 11:17 | Outpatient (AMB) | payer OTHER, SELFPAY ==
[2024-01-12 11:19] VITALS: BP 128/78; PULSE 80; O2SAT 96; BMI 35.0
--- NOTE | 2024-01-12 11:19 | MHC.OFFVIS ---
Vital Signs 01/12/24 11:19 Height 5 ft 5 in Weight 210 lb 8.663 oz BMI 35.0 BP 128/78 Blood Pressure Location Rt brachial Position Sitting Pulse 80 Pulse Source Doppler Pulse Oximetry (%) 96 Oxygen Delivery Method Room Air Intake Visit Reasons: Asthma Allergies niacin [Niaspan Extended-Release] Allergy (Intermediate, Verified 01/07/24 10:10) skin blisters tramadol Allergy (Intermediate, Verified 01/07/24 10:10) seizures barley [BARLEY] Allergy (Unknown, Verified 01/07/24 10:10) UNKNOWN fluticasone [Advair Diskus] Allergy (Unknown, Verified 01/07/24 10:10) Shortness of Breath ibuprofen Allergy (Unknown, Verified 01/07/24 10:10) Swelling naratriptan Allergy (Unknown, Verified 01/07/24 10:10) unknown Penicillins [PENICILLINS] Allergy (Unknown, Verified 01/07/24 10:10) Unknown sumatriptan Allergy (Unknown, Verified 01/07/24 10:10) unknown trazodone [TRAZODONE] Allergy (Unknown, Verified 01/07/24 10:10) UNKNOWN omalizumab [From Xolair] Adverse Reaction (Severe, Verified 01/07/24 10:10) Anaphylaxis equate cough drops sugar free Allergy (Mild, Uncoded 01/07/24 10:10) Unknown HPI HPI Asthma: Details: 53-year-old lady, nonsmoker, followed for underlying severe persistent asthma with allergic component. She has been using Xolair, Symbicort, duo nebs, and albuterol MDI with excellent control of her symptoms, unfortunately she did develop an allergic reaction to Xolair necessitating stopping it, thus she was switched to Dupixent and had her 1st injection. She denies acute exacerbations. [facility] Medical History (Updated 11/19/23 @ 14:38 by [place]) Colon cancer screening Left sided abdominal pain Influenza A H1N1 infection Stool incontinence Shoulder pain Anemia Bronchitis due to COVID-19 virus COVID Acute pneumonia Work related injury Acute diarrhea Paresthesias in left hand Dysuria PFO (patent foramen ovale) Shortness of breath Community acquired pneumonia Hospital discharge follow-up Chronic idiopathic constipation Pre-op examination Encounter for routine gynecological examination LFT elevation Encounter for general adult medical examination with abnormal findings Respiratory tract congestion with cough Hospital discharge follow-up COVID-19 Tracheobronchitis COVID-19 Other specified hypothyroidism Iron deficiency anemia Shoulder pain, right Nausea and vomiting PFO (patent foramen ovale) History of transesophageal echocardiography (LAN) Colitis Abnormal angiogram of head COVID-19 Asthma Thyroid disease GERD (gastroesophageal reflux disease) Anemia Aneurysm Surgical History History of surgery of uterus H/O endoscopy History of H/O brain surgery History of colonoscopy Family History Father Diabetes Arthritis Diverticulitis Leukemia Mental health disorder Lung cancer Mother Anemia Arthritis Colon polyps Myocardial infarction Brother Crohn's disease Testicular cancer Brother Cancer Paternal Grandfather Leukemia Other Substance use disorder Social History Household Members: Significant Other Housing: House Are you a primary healthcare account manager to a significant other at home: No Do you presently have visiting nurse or other home services: No Alcohol intake: former Patient Tobacco Use Status: Former Tobacco user Tobacco use type: Cigarette Cigarettes Per Day: 10 e-Cigarette/Vaping Use: Never Used Advance Directives Date on File: 04/09/21 service: No 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al status: employed 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: [employer]/ right hand dominant Cognitive needs: No Hearing needs: No Vision needs: Yes Review of Systems Const Denies daytime sleepiness, Denies excessive sweating, Denies fatigue, Denies fever(s), Denies lethargy, Denies malaise, Denies night sweats, Denies snoring and Denies weight loss Eyes Denies blurry vision and Denies itchy eyes ENT Denies nasal congestion, Denies post nasal drip, Denies sinus pain, Denies sinus pressure and Denies other ( Thrush) Card Denies chest pain, Denies pedal edema, Denies dyspnea, Denies orthopnea and Denies paroxysmal nocturnal dyspnea Resp Denies cough, Denies hemoptysis, Denies excessive phlegm production, Denies dyspnea, Denies snoring and Denies wheezing GI Denies abdominal pain and Denies heartburn Musc Denies myalgias, Denies arthralgias and Denies joint swelling Skin/Breast Denies rash Neuro Denies memory loss and Denies seizure-like activity Psych Denies abnormal sleep pattern, Denies anxiety and Denies memory loss Endo Denies excessive sweating, Denies fatigue and Denies heat intolerance Denny/Lymph Denies easy bruising Aller/Immun Denies itchy eyes, Denies seasonal rhinorrhea and Denies wheezing Physical Exam Vital Signs: Last Vital Signs Pulse 80 01/12/24 11:19 BP 128/78 01/12/24 11:19 Pulse Ox 96 01/12/24 11:19 Oxygen Delivery Method Room Air 01/12/24 11:19 BMI result Body Mass Index 35.0 Const General: no acute distress and alert Nutritional Appearance: not obese Orientation/consciousness: Other orientation findings ( oriented) HEENT Head: Yes atraumatic Eyes General: appearance normal, both eyes and all related structures Sclerae: sclerae normal EOM: EOMs intact bilaterally Neck Neck: Yes supple Lymphatic: no lymphadenopathy noted Resp Effort & Inspection: normal respiratory effort and no use of accessory muscles Auscultation: clear to auscultation bilaterally Cardio Rate: regular rate Rhythm: regular rhythm Heart sounds: no gallops, no murmurs and no rubs Skin General skin exam: other ( warm) Extrem General: No clubbing, No cyanosis and No edema Assessment & Plan Assessment & Plan (1) Severe persistent allergic asthma: Code(s): J45.50 - Severe persistent asthma, uncomplicated Category: Medical Plan: Previously controlled on Xolair, however developed an allergic reaction and has been switched to Dupixent, had her 1st injection. Continue current regimen of Dupixent, Advair, duo nebs, and albuterol MDI. (2) Environmental allergies: Code(s): Z91.09 - Other allergy status, other than to drugs and biological substances Category: Medical Plan: Previously controlled on Xolair, secondary to an allergic reaction switched Dupixent. Expect to improve on Dupixent. Coding Level of Care Code Est Pt Level 4 (16880) Diagnoses Severe persistent allergic asthma J45.50 Environmental allergies Z91.09
== END 2024-01-12 11:41 | disposition home or self-care (01) ==
PROVIDERS: PCP Internal Medicine; Visit Provider Internal Medicine Pulmonary Disease
DX: J45.50 Severe persistent asthma, uncomplicated (principal); Z91.09 Other allergy status, other than to drugs and biological substances
CPT/HCPCS: 99214

== ENCOUNTER → 2024-01-12 11:17 | Outpatient (BNVA) | payer OTHER, SELFPAY | PROVIDERS: PCP Internal Medicine; Visit Provider Internal Medicine Pulmonary Disease | DX: M25.512 Pain in left shoulder (principal); G89.29 Other chronic pain; J45.50 Severe persistent asthma, uncomplicated; S16.1XXD Strain of muscle, fascia and tendon at neck level, subsequent encounter; X58.XXXD Exposure to other specified factors, subsequent encounter; Z91.09 Other allergy status, other than to drugs and biological substances | CPT/HCPCS: 99212 ==

== ENCOUNTER 2024-01-12 12:02 | Outpatient (AMB) | payer OTHER, SELFPAY ==
--- NOTE | 2024-01-12 12:33 | MHC.OFFWIV ---
Intake Vital Signs 01/12/24 12:34 Height 5 ft 5 in Weight 210 lb BMI 34.9 BP 118/84 Blood Pressure Location Lt brachial Position Sitting Pulse 74 Pulse Source Pulse Oximeter Pulse Oximetry (%) 98 Oxygen Delivery Method Room Air Intake Visit Reasons: EP LT shoulder pain continuing Intake Note: Patient here for left shoulder pain that has been present last week and was put out of work and now would like to know if she can or cannot go back to work. Patient Tobacco Use Status: Former Tobacco user Allergies niacin [Niaspan Extended-Release] Allergy (Intermediate, Verified 01/12/24 12:34) skin blisters tramadol Allergy (Intermediate, Verified 01/12/24 12:34) seizures barley [BARLEY] Allergy (Unknown, Verified 01/12/24 12:34) UNKNOWN fluticasone [Advair Diskus] Allergy (Unknown, Verified 01/12/24 12:34) Shortness of Breath ibuprofen Allergy (Unknown, Verified 01/12/24 12:34) Swelling naratriptan Allergy (Unknown, Verified 01/12/24 12:34) unknown Penicillins [PENICILLINS] Allergy (Unknown, Verified 01/12/24 12:34) Unknown sumatriptan Allergy (Unknown, Verified 01/12/24 12:34) unknown trazodone [TRAZODONE] Allergy (Unknown, Verified 01/12/24 12:34) UNKNOWN omalizumab [From Xolair] Adverse Reaction (Severe, Verified 01/12/24 12:34) Anaphylaxis equate cough drops sugar free Allergy (Mild, Uncoded 01/12/24 12:34) Unknown Do you need a note to return to daycare/school/sports/work: Yes HPI HPI Comments History of Present Illness Details This is a 54-year-old female presenting for a return to work note. Patient states that she fractured her left humerus on May 29, 2023, had returned to work and at the beginning of December started to have pain again in her left shoulder and left upper arm. Patient was seen in urgent care on January 06 and was taken out of work. 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 Patient is scheduled to return to work today at 4:00 p.m. She denies any new injury or trauma to her left upper extremity. [facility] Medical History Colon cancer screening Left sided abdominal pain Influenza A H1N1 infection Stool incontinence Shoulder pain Anemia Bronchitis due to COVID-19 virus COVID Acute pneumonia Work related injury Acute diarrhea Paresthesias in left hand Dysuria PFO (patent foramen ovale) Shortness of breath Community acquired pneumonia Hospital discharge follow-up Chronic idiopathic constipation Pre-op examination Encounter for routine gynecological examination LFT elevation Encounter for general adult medical examination with abnormal findings Respiratory tract congestion with cough Hospital discharge follow-up COVID-19 Tracheobronchitis COVID-19 Other specified hypothyroidism Iron deficiency anemia Shoulder pain, right Nausea and vomiting PFO (patent foramen ovale) History of transesophageal echocardiography (LAN) Colitis Abnormal angiogram of head COVID-19 Asthma Thyroid disease GERD (gastroesophageal reflux disease) Anemia Aneurysm Surgical History History of surgery of uterus H/O endoscopy History of H/O brain surgery History of colonoscopy Family History Father Diabetes Arthritis Diverticulitis Leukemia Mental health disorder Lung cancer Mother Anemia Arthritis Colon polyps Myocardial infarction Brother Crohn's disease Testicular cancer Brother Cancer Paternal Grandfather Leukemia Other Substance use disorder Social History Household Members: Significant Other Housing: House Are you a primary health care liaison to a significant other at home: No Do you presently have visiting nurse or other home services: No Alcohol intake: former Patient Tobacco Use Status: Former Tobacco user Tobacco use type: Cigarette Cigarettes Per Day: 10 e-Cigarette/Vaping Use: Never Used Advance Directives Date on File: 04/09/21 service: No 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al status: employed 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: [employer]/ right hand dominant Cognitive needs: No Hearing needs: No Vision needs: Yes Review of Systems Const All systems reviewed & are unremarkable except as noted in HPI and below Eyes Reports no additional complaints ENT Reports no additional complaints Card Reports no additional complaints Resp Reports no additional complaints Musc Reports arthralgias (left shoulder), Reports limited range of motion (left shoulder) and Reports tingling (left hand) Skin/Breast Reports system reviewed and no additional complaints, except as documented Neuro Reports no additional complaints and Reports tingling (left hand) Psych Reports no additional complaints Physical Exam Vital Signs: Last Vital Signs Pulse 74 01/12/24 12:34 BP 118/84 01/12/24 12:34 Pulse Ox 98 01/12/24 12:34 Oxygen Delivery Method Room Air 01/12/24 12:34 BMI result Body Mass Index 34.9 Const General: cooperative, healthy appearing, comfortable, no acute distress, well developed, alert, awake and Physically active Nutritional Appearance: average body habitus Orientation/consciousness: patient oriented x3 Limitations: no limitations Back/Spine/Pelvis Cervical Spine: cervical ROM normal, cervical muscular tenderness (left > right) and No Cervical spine tenderness Skin General skin exam: no rashes or lesions noted Neuro General: patient oriented x3 and moves all extremities Motor exam (neuro): Other motor observations present (time clock mechanic strength equal bilaterally, decreased ROM left shoulder) Sensory Exam: double simultaneous stimulation for sensation normal (hands bilaterally) Extrem Left upper extremity: shoulder/upper arm (no left clavicular pain, left shoulder pain with abduction) Details: tenderness (left anterior shoulder and proximal humerus) Location: of the proximal humerus; not of the clavicle and not over the biceps tendon; no ecchymosis and no crepitus; ROM limited (patient unable to lift arm above shoulder level) Psych Appearance: grossly normal Mental Status: mental status grossly normal Insight: Good insight present (Psych) Judgement: Good judgement present (Psych) Assessment & Plan Assessment & Plan (1) Left shoulder pain: Comment: Patient will continue taking Tylenol as needed for her discomfort. Additional imaging is not required at this time. Code(s): M25.512 - Pain in left shoulder Qualifiers: Chronicity: chronic Qualified Code(s): M25.512 - Pain in left shoulder; G89.29 - Other chronic pain Plan: Patient may return to light duty today and follow up with Orthopedics as previously scheduled at the end of this month. (2) Cervical muscle strain: Code(s): S16.1XXA - Strain of muscle, fascia and tendon at neck level, initial encounter Qualifiers: Encounter type: subsequent encounter Qualified Code(s): S16.1XXD - Strain of muscle, fascia and tendon at neck level, subsequent encounter Plan: Patient may return to light duty today and follow up with Orthopedics as previously scheduled at the end of this month for a return to full duty examination. Coding Level of Care Code Est Pt Level 3 (29472) Diagnoses Chronic left shoulder pain M25.512; G89.29 Chronicity: chronic Strain of neck muscle, subsequent encounter S16.1XXD Encounter type: subsequent encounter Time Spent (min) 20
[2024-01-12 12:34] VITALS: BP 118/84; PULSE 74; O2SAT 98; BMI 34.9
== END 2024-01-12 13:02 | disposition home or self-care (01) ==
PROVIDERS: PCP Internal Medicine; Visit Provider Physician Assistant
DX: M25.512 Pain in left shoulder (principal); G89.29 Other chronic pain; S16.1XXD Strain of muscle, fascia and tendon at neck level, subsequent encounter

== ENCOUNTER 2024-01-19 08:35 | Outpatient (AMB) | payer OTHER, SELFPAY ==
--- NOTE | 2024-01-19 08:42 | MHC.PC.OV ---
Vital Signs 01/19/24 08:44 Weight 214 lb BP 124/80 Blood Pressure Location Rt brachial Position Sitting Pulse 78 Pulse Source Pulse Oximeter Pulse Oximetry (%) 98 Oxygen Delivery Method Room Air Intake Visit Reasons: Follow Up Walk-In Allergies niacin [Niaspan Extended-Release] Allergy (Intermediate, Verified 01/19/24 08:44) skin blisters tramadol Allergy (Intermediate, Verified 01/19/24 08:44) seizures barley [BARLEY] Allergy (Unknown, Verified 01/19/24 08:44) UNKNOWN fluticasone [Advair Diskus] Allergy (Unknown, Verified 01/19/24 08:44) Shortness of Breath ibuprofen Allergy (Unknown, Verified 01/19/24 08:44) Swelling naratriptan Allergy (Unknown, Verified 01/19/24 08:44) unknown Penicillins [PENICILLINS] Allergy (Unknown, Verified 01/19/24 08:44) Unknown sumatriptan Allergy (Unknown, Verified 01/19/24 08:44) unknown trazodone [TRAZODONE] Allergy (Unknown, Verified 01/19/24 08:44) UNKNOWN omalizumab [From Xolair] Adverse Reaction (Severe, Verified 01/19/24 08:44) Anaphylaxis equate cough drops sugar free Allergy (Mild, Uncoded 01/19/24 08:44) Unknown Medication List - Last Reconciled 01/19/24 by Thee Tay MD bisacodyl (Dulcolax (bisacodyl)) 10 mg (2 x 5 mg) PO BEDTIME 30 days bupropion HCl XL (Wellbutrin XL) 150 mg PO QAM dexlansoprazole (Dexilant) 60 mg PO DAILY 90 days dupilumab (Dupixent) 300 mg (2 mL) subcut Q2W 28 days epinephrine 0.3 mg (0.3 mL) IM Q10M PRN fluticasone propion-salmeterol 500-50 mcg/dose (Advair Diskus) 1 ea inhalation BID fluticasone propionate 50 mcg/actuation (Flonase Allergy Relief) 2 sprays intranasal BID 90 days ipratropium-albuterol 0.5 mg-3 mg(2.5 mg base)/3 mL 3 mL inhalation Q4-6H PRN 30 days levothyroxine 175 mcg PO QAM 90 days lidocaine 5% (Lidoderm) 1 patch topical DAILY loratadine 10 mg PO DAILY 30 days lorazepam 0.5 mg PO BID PRN 15 days montelukast 10 mg PO DAILY naproxen 500 mg PO TID oxcarbazepine (Trileptal) 150 mg PO BID simethicone 180 mg PO QID 30 days Ventolin HFA 90 mcg/actuation (albuterol sulfate) 2 puffs inhalation Q4H NS Tobacco use date assessed: 10/22/23 Dental Screening Dental Screen Date: 10/22/23 HPI Follow Up Walk-In HPI Details Patient is a 54-year-old female came in today to talk about her work limitations 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 Letter provided. [facility] Medical History Colon cancer screening Left sided abdominal pain Influenza A H1N1 infection Stool incontinence Shoulder pain Anemia Bronchitis due to COVID-19 virus COVID Acute pneumonia Work related injury Acute diarrhea Paresthesias in left hand Dysuria PFO (patent foramen ovale) Shortness of breath Community acquired pneumonia Hospital discharge follow-up Chronic idiopathic constipation Pre-op examination Encounter for routine gynecological examination LFT elevation Encounter for general adult medical examination with abnormal findings Respiratory tract congestion with cough Hospital discharge follow-up COVID-19 Tracheobronchitis COVID-19 Other specified hypothyroidism Iron deficiency anemia Shoulder pain, right Nausea and vomiting PFO (patent foramen ovale) History of transesophageal echocardiography (LAN) Colitis Abnormal angiogram of head COVID-19 Asthma Thyroid disease GERD (gastroesophageal reflux disease) Anemia Aneurysm Surgical History History of surgery of uterus H/O endoscopy History of H/O brain surgery History of colonoscopy Family History Father Diabetes Arthritis Diverticulitis Leukemia Mental health disorder Lung cancer Mother Anemia Arthritis Colon polyps Myocardial infarction Brother Crohn's disease Testicular cancer Brother Cancer Paternal Grandfather Leukemia Other Substance use disorder Social History Household Members: Significant Other Housing: House Are you a primary respiratory care instructor to a significant other at home: No Do you presently have visiting nurse or other home services: No Alcohol intake: former Patient Tobacco Use Status: Former Tobacco user Tobacco use type: Cigarette Cigarettes Per Day: 10 e-Cigarette/Vaping Use: Never Used Advance Directives Date on File: 04/09/21 service: No 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al status: employed 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: [employer]/ right hand dominant Cognitive needs: No Hearing needs: No Vision needs: Yes Questionnaire Thrive Questionnaire Date Thrive assessed: 11/11/23 I am a: Patient What is your living situation today?: I have a steady place to live Within the past 12 months, did the food you bought not last and you didn't have the money to get more?: Sometimes True Within the past 12 months, did you worry whether your food would run out before you got money to buy more?: Sometimes True Do you have trouble paying for medicines?: No Do you have trouble getting transportation to medical appointments?: No Do you have trouble paying your heating and electricity bill?: No Do you have trouble taking care of your child, family member or friend?: No Do you have trouble with day-to-day activities such as bathing, preparing meals, shopping, managing finances, etc.?: No Are you currently unemployed and looking for a job?: No Are you interested in more education?: No Please select the resources that you would like help with: None Currently or been in a relationship where the following occur: No concerns reported THRIVE Score: 2 MARKO-7 AMB Questionnaire MARKO-7 Date MARKO - 7 assessed: 11/11/23 Feeling afraid as if something awful might happen: 3 = Nearly every day Source: Developed by Drs. Masood Arredondo, Lesly Pruitt, Thor Del Cid and colleagues, with an educational phil from [employer]. Review of Systems Const All systems reviewed & are unremarkable except as noted in HPI and below Physical exam (Primary Care) Vital Signs: Last Vital Signs Pulse 78 01/19/24 08:44 BP 124/80 01/19/24 08:44 Pulse Ox 98 01/19/24 08:44 Oxygen Delivery Method Room Air 01/19/24 08:44 Tobacco/Smoking Status: Tobacco use Status Tobacco use date assessed 10/22/23 01/19/24 08:43 Patient Tobacco Use Status Former Tobacco user 01/19/24 08:43 Tobacco use type Cigarette 01/19/24 08:43 e-Cigarette/Vaping Use Never Used 01/19/24 08:43 Thrive Assessment: Date of Thrive Assessment Date Thrive assessed 11/11/23 01/19/24 08:43 Currently or been in a relationship where the following occur: No concerns reported Const General: no acute distress Orientation/consciousness: patient oriented x3 Eyes General: appearance normal, both eyes and all related structures Resp Effort & Inspection: normal respiratory effort and able to speak in complete sentences Neuro General: patient oriented x3 Psych Mental Status: mental status grossly normal Assessment and Plan Assessment & Plan (1) Cervical muscle strain: Code(s): S16.1XXA - Strain of muscle, fascia and tendon at neck level, initial encounter Qualifiers: Encounter type: subsequent encounter Qualified Code(s): S16.1XXD - Strain of muscle, fascia and tendon at neck level, subsequent encounter (2) Left shoulder pain: Comment: Patient will continue taking Tylenol as needed for her discomfort. 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 Letter provided. Coding Level of Care Code Est Pt Level 3 (34845) Diagnoses Strain of neck muscle, subsequent encounter S16.1XXD Encounter type: subsequent encounter Chronic left shoulder pain M25.512; G89.29 Chronicity: chronic
[2024-01-19 08:44] VITALS: BP 124/80; PULSE 78; O2SAT 98
== END 2024-01-19 10:32 | disposition home or self-care (01) ==
PROVIDERS: PCP Internal Medicine; Visit Provider Internal Medicine
DX: M25.512 Pain in left shoulder (principal); G89.29 Other chronic pain; S16.1XXD Strain of muscle, fascia and tendon at neck level, subsequent encounter

== ENCOUNTER → 2024-01-19 08:35 | Outpatient (BNVA) | payer OTHER, SELFPAY | PROVIDERS: PCP Internal Medicine; Visit Provider Internal Medicine | DX: S16.1XXD Strain of muscle, fascia and tendon at neck level, subsequent encounter (principal); M25.512 Pain in left shoulder; G89.29 Other chronic pain | CPT/HCPCS: 99212 ==

== ENCOUNTER 2024-01-25 13:26 | Outpatient (REF) | payer OTHER, SELFPAY | END 2024-01-25 13:27 | disposition home or self-care (01) | LOC: HO.HOSX 13:26 | PROVIDERS: Visit Provider Orthopaedic Surgery | DX: Z13.89 Encounter for screening for other disorder (principal) ==

== ENCOUNTER → 2024-02-03 08:27 | Outpatient (RCR) | payer OTHER, SELFPAY ==
--- NOTE | 2022-12-17 09:05 | MHC.PT.EP ---
[facility] [place] Office [place] Office [place] Office [address] [phone] F: [phone] F: [phone] F: [phone] F: [phone] Physical Therapy Plan of Care Date of Evaluation: Date of Surgery: Diagnosis: cervical radiculopathy Assessment: Patient is a 52 year old R handed female who presents with s/s consistent with cervicalgia and neck pain related to a fall at work after passing out. 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 Patient past medical history includes ankylosing spondylitis and aneurysm. Current impairments include pain, posture, ROM, strength, activity tolerance and functional mobility. Functional limitations include decreased ability to reach, lift, turn head, sleep, drive, push and pull. Patient is motivated with good rehab potential. Skilled PT will address impairments and functional limitations in order to achieve goals. Frequency and Duration: The patient will be seen 2x/week for 5 weeks Short Term Goals: I with HEP - 2 weeks AROM rotation to 55 b/l - 3 weeks AROM flexion and ext to 35 each - 3 weeks Geotechnical Engineer Goals: NPDI 16% or better - 5 weeks Pain free return to work - 5 weeks Normal tissue tension b/l UT and LS - 5 weeks Treatment Plan: Modalities to reduce pain, spasms and effusion. Manual therapy to restore motion and function. Therapeutic exercise to improve strength and flexibility. Neuromuscular re-education for posture and balance. Therapeutic activities to return to functional activities of daily living. Electronically signed by: Matthias Castillo, PT Please sign and return to therapist. Thank you for your referral.
--- NOTE | 2024-02-03 08:26 | MHC.PT.DC ---
[facility] [place] Office [place] Office [place] Office [address] Martin Jennings [address] [phone] F: [phone] F: [phone] F: [phone] F: [phone] Physical Therapy Discharge Report Diagnosis: cervical radiculopathy Date of Surgery: Date of Evaluation: 12/17/22 Date of Discharge: 02/03/23 Treatments to Date: 9 Cancellations to Date: No Shows to Date: Discharge Status: Independent with HEP Discharge Summary: 01/14/23: I with HEP. AROM rotation to 67 L, WNL R. Flexion to 35 and ext to 35. NPDI 22%/. Pt notes no new pain at work, only pain in PT. She has small TrP b/l but otherwise tissue tension is restored. She is appropriate to d/c to HEP at this time. 01/12/23: pt able to walk around [place] 7 miles over the weekend and watch [employer] in concert. we will progress 1-2 more visit then d/c to HEP. 01/07/23: pt with L LS TrP. cane used with minor improvement. pt notes she has been doing ok with current work shift. 01/05/23: pt has been progressing well with activity tolerance. gave her HEP with some ideas to incorporate during work day to improve postural awareness. 12/31/22: pt progressing well with skilled PT. improved activity tolerance. reduced pain with program. notes some soreness after last session which she was educated on. 12/24/22: pt has been able to progress modestly. She did have to leave early for first day of work. we will continue to progress as tolerated. 12/22/22: pt progressed with balance intervention. educated on mechanics, followed well and less cues required overall. 12/19/22: progressed with strength and ROM with max cues for pain free ex. assess response and progress accordingly. Patient is a 52 year old R handed female who presents with s/s consistent with cervicalgia and neck pain related to a fall at work after passing out. 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 Patient past medical history includes ankylosing spondylitis and aneurysm. Current impairments include pain, posture, ROM, strength, activity tolerance and functional mobility. Functional limitations include decreased ability to reach, lift, turn head, sleep, drive, push and pull. Patient is motivated with good rehab potential. Skilled PT will address impairments and functional limitations in order to achieve goals. Electronically signed by: Matthias Castillo, PT Please sign and return to therapist. Thank you for your referral.
== END | disposition home or self-care (01) ==
LOC: HO.PTCHIC 12-17 07:57
PROVIDERS: PCP Internal Medicine; Visit Provider Internal Medicine
DX: M54.12 Radiculopathy, cervical region (principal)
CPT/HCPCS: 97110; 97140; 97163

== ENCOUNTER 2024-02-18 08:26 | Outpatient (AMB) | payer OTHER, SELFPAY ==
--- NOTE | 2024-02-18 09:57 | MHC.PC.OV ---
Intake Visit Reasons: Fmla Paperwork Allergies niacin [Niaspan Extended-Release] Allergy (Intermediate, Verified 01/19/24 08:44) skin blisters tramadol Allergy (Intermediate, Verified 01/19/24 08:44) seizures barley [BARLEY] Allergy (Unknown, Verified 01/19/24 08:44) UNKNOWN fluticasone [Advair Diskus] Allergy (Unknown, Verified 01/19/24 08:44) Shortness of Breath ibuprofen Allergy (Unknown, Verified 01/19/24 08:44) Swelling naratriptan Allergy (Unknown, Verified 01/19/24 08:44) unknown Penicillins [PENICILLINS] Allergy (Unknown, Verified 01/19/24 08:44) Unknown sumatriptan Allergy (Unknown, Verified 01/19/24 08:44) unknown trazodone [TRAZODONE] Allergy (Unknown, Verified 01/19/24 08:44) UNKNOWN omalizumab [From Xolair] Adverse Reaction (Severe, Verified 01/19/24 08:44) Anaphylaxis equate cough drops sugar free Allergy (Mild, Uncoded 01/19/24 08:44) Unknown Medication List - Last Reconciled 02/19/24 by Thee Tay MD bisacodyl (Dulcolax (bisacodyl)) 10 mg (2 x 5 mg) PO BEDTIME 30 days bupropion HCl XL (Wellbutrin XL) 150 mg PO QAM dexlansoprazole (Dexilant) 60 mg PO DAILY 90 days dupilumab (Dupixent) 300 mg (2 mL) subcut Q2W 28 days epinephrine 0.3 mg (0.3 mL) IM Q10M PRN fluticasone propion-salmeterol 500-50 mcg/dose (Advair Diskus) 1 ea inhalation BID fluticasone propionate 50 mcg/actuation (Flonase Allergy Relief) 2 sprays intranasal BID 90 days ipratropium-albuterol 0.5 mg-3 mg(2.5 mg base)/3 mL 3 mL inhalation Q4-6H PRN 30 days levothyroxine 175 mcg PO QAM 90 days lidocaine 5% (Lidoderm) 1 patch topical DAILY loratadine 10 mg PO DAILY 30 days lorazepam 0.5 mg PO BID PRN 15 days montelukast 10 mg PO DAILY naproxen 500 mg PO TID oxcarbazepine (Trileptal) 150 mg PO BID simethicone 180 mg PO QID 30 days Ventolin HFA 90 mcg/actuation (albuterol sulfate) 2 puffs inhalation Q4H NS Tobacco use date assessed: 10/22/23 Dental Screening Dental Screen Date: 10/22/23 HPI Fmla Paperwork HPI Details This is telemedicine visit to fill paperwork Patient had left-sided neck and shoulder pain starting January 06 until January 11 It is job related, patient worked in a [employer] She is feeling better now and has gone back to work on January 12 She is on reduced number of hours due to her anxiety panic attacks Through her therapist. Paperwork filled for December [facility] Medical History Colon cancer screening Left sided abdominal pain Influenza A H1N1 infection Stool incontinence Shoulder pain Anemia Bronchitis due to COVID-19 virus COVID Acute pneumonia Work related injury Acute diarrhea Paresthesias in left hand Dysuria PFO (patent foramen ovale) Shortness of breath Community acquired pneumonia Hospital discharge follow-up Chronic idiopathic constipation Pre-op examination Encounter for routine gynecological examination LFT elevation Encounter for general adult medical examination with abnormal findings Respiratory tract congestion with cough Hospital discharge follow-up COVID-19 Tracheobronchitis COVID-19 Other specified hypothyroidism Iron deficiency anemia Shoulder pain, right Nausea and vomiting PFO (patent foramen ovale) History of transesophageal echocardiography (LAN) Colitis Abnormal angiogram of head COVID-19 Asthma Thyroid disease GERD (gastroesophageal reflux disease) Anemia Aneurysm Surgical History History of surgery of uterus H/O endoscopy History of H/O brain surgery History of colonoscopy Family History Father Diabetes Arthritis Diverticulitis Leukemia Mental health disorder Lung cancer Mother Anemia Arthritis Colon polyps Myocardial infarction Brother Crohn's disease Testicular cancer Brother Cancer Paternal Grandfather Leukemia Other Substance use disorder Social History Household Members: Significant Other Housing: House Are you a primary child care centre manager to a significant other at home: No Do you presently have visiting nurse or other home services: No Alcohol intake: former Patient Tobacco Use Status: Former Tobacco user Tobacco use type: Cigarette Cigarettes Per Day: 10 e-Cigarette/Vaping Use: Never Used Advance Directives Date on File: 04/09/21 service: No 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al status: employed 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: [employer]/ right hand dominant Cognitive needs: No Hearing needs: No Vision needs: Yes Questionnaire Thrive Questionnaire Date Thrive assessed: 11/11/23 MARKO-7 AMB Questionnaire MARKO-7 Date MARKO - 7 assessed: 11/11/23 Source: Developed by Drs. Masood Arredondo, Lesly Pruitt, Thor Del Cid and colleagues, with an educational phil from [employer]. Review of Systems Const All systems reviewed & are unremarkable except as noted in HPI and below Physical exam (Primary Care) Tobacco/Smoking Status: Tobacco use Status Tobacco use date assessed 10/22/23 02/18/24 09:58 Patient Tobacco Use Status Former Tobacco user 02/18/24 09:58 Tobacco use type Cigarette 02/18/24 09:58 e-Cigarette/Vaping Use Never Used 02/18/24 09:58 Thrive Assessment: Date of Thrive Assessment Date Thrive assessed 11/11/23 02/18/24 09:58 Telehealth Telehealth Telehealth Platform: [facility] Location of provider rendering services: practice address Location of patient: address on file Patient Identification confirmed using: Name, : Yes Telehealth method: voice only Patient verbally consented to treatment: Yes Patient verbally consented to billing insurance company: Yes Patient informed of any privacy concerns related to visit: Yes Minutes spent on Phone/Video with Pt.: 13 Coding Level of Care Code Tele Est Pt Level 3 (51117) Diagnoses Strain of neck muscle, subsequent encounter S16.1XXD Encounter type: subsequent encounter Chronic left shoulder pain M25.512; G89.29 Chronicity: chronic Assessment & Plan Assessment & Plan (1) Cervical muscle strain: Code(s): S16.1XXA - Strain of muscle, fascia and tendon at neck level, initial encounter Category: Medical Qualifiers: Encounter type: subsequent encounter Qualified Code(s): S16.1XXD - Strain of muscle, fascia and tendon at neck level, subsequent encounter (2) Left shoulder pain: Comment: Patient will continue taking Tylenol as needed for her discomfort. Code(s): M25.512 - Pain in left shoulder Category: Medical Qualifiers: Chronicity: chronic Qualified Code(s): M25.512 - Pain in left shoulder; G89.29 - Other chronic pain Plan This is telemedicine visit to fill paperwork Patient had left-sided neck and shoulder pain starting January 06 until January 11 It is job related, patient worked in a [employer] She is feeling better now and has gone back to work on January 12 She is on reduced number of hours due to her anxiety panic attacks Through her therapist. Paperwork filled for December
== END 2024-02-18 11:26 | disposition home or self-care (01) ==
LOC: HO.HMCC 08:26
PROVIDERS: PCP Internal Medicine; Visit Provider Internal Medicine
DX: S16.1XXD Strain of muscle, fascia and tendon at neck level, subsequent encounter (principal); M25.512 Pain in left shoulder; G89.29 Other chronic pain

== ENCOUNTER → 2024-02-18 08:26 | Outpatient (BNVA) | payer OTHER, SELFPAY | PROVIDERS: PCP Internal Medicine; Visit Provider Internal Medicine ==

== ENCOUNTER 2024-02-19 10:34 | Outpatient (AMB) | payer OTHER, SELFPAY ==
[2024-02-19 10:39] VITALS: BP 126/84; PULSE 96; O2SAT 97; BMI 35.0
--- NOTE | 2024-02-19 10:39 | MHC.PC.OV ---
Vital Signs 02/19/24 10:39 Height 5 ft 5 in Weight 210 lb 6 oz BMI 35.0 BP 126/84 Blood Pressure Location Lt brachial Position Sitting Pulse 96 Pulse Source Pulse Oximeter Pulse Oximetry (%) 97 Oxygen Delivery Method Room Air Intake Visit Reasons: Thyroid Allergies niacin [Niaspan Extended-Release] Allergy (Intermediate, Verified 01/19/24 08:44) skin blisters tramadol Allergy (Intermediate, Verified 01/19/24 08:44) seizures barley [BARLEY] Allergy (Unknown, Verified 01/19/24 08:44) UNKNOWN fluticasone [Advair Diskus] Allergy (Unknown, Verified 01/19/24 08:44) Shortness of Breath ibuprofen Allergy (Unknown, Verified 01/19/24 08:44) Swelling naratriptan Allergy (Unknown, Verified 01/19/24 08:44) unknown Penicillins [PENICILLINS] Allergy (Unknown, Verified 01/19/24 08:44) Unknown sumatriptan Allergy (Unknown, Verified 01/19/24 08:44) unknown trazodone [TRAZODONE] Allergy (Unknown, Verified 01/19/24 08:44) UNKNOWN omalizumab [From Xolair] Adverse Reaction (Severe, Verified 01/19/24 08:44) Anaphylaxis equate cough drops sugar free Allergy (Mild, Uncoded 01/19/24 08:44) Unknown Medication List - Last Reconciled 02/19/24 by Thee Tay MD bisacodyl (Dulcolax (bisacodyl)) 10 mg (2 x 5 mg) PO BEDTIME 30 days bupropion HCl XL (Wellbutrin XL) 150 mg PO QAM dexlansoprazole (Dexilant) 60 mg PO DAILY 90 days dupilumab (Dupixent) 300 mg (2 mL) subcut Q2W 28 days epinephrine 0.3 mg (0.3 mL) IM Q10M PRN fluticasone propion-salmeterol 500-50 mcg/dose (Advair Diskus) 1 ea inhalation BID fluticasone propionate 50 mcg/actuation (Flonase Allergy Relief) 2 sprays intranasal BID 90 days ipratropium-albuterol 0.5 mg-3 mg(2.5 mg base)/3 mL 3 mL inhalation Q4-6H PRN 30 days levothyroxine 175 mcg PO QAM 90 days lidocaine 5% (Lidoderm) 1 patch topical DAILY loratadine 10 mg PO DAILY 30 days lorazepam 0.5 mg PO BID PRN 15 days montelukast 10 mg PO DAILY oxcarbazepine (Trileptal) 150 mg PO BID simethicone 180 mg PO QID 30 days Ventolin HFA 90 mcg/actuation (albuterol sulfate) 2 puffs inhalation Q4H NS Tobacco use date assessed: 10/22/23 Dental Screening Dental Screen Date: 10/22/23 HPI Thyroid HPI Details Follow-up hypothyroidism Patient is on 175 mcg dose since past few months Last time he had thyroid test done was December of last year Patient has had labs since but no thyroid test Complaining of feeling tremors in the morning and sometimes in the afternoon, questioning if it is because of anxiety Patient does have anxiety and panic disorder and is currently seeing a provider for that and taking medication Tremors are usually in the morning and then she is fine Lab order placed she will have it done today Meanwhile continue 175 mcg of levothyroxine PFSH Medical History Other specified hypothyroidism Colon cancer screening Left sided abdominal pain Influenza A H1N1 infection Stool incontinence Shoulder pain Anemia Bronchitis due to COVID-19 virus COVID Acute pneumonia Work related injury Acute diarrhea Paresthesias in left hand Dysuria PFO (patent foramen ovale) Shortness of breath Community acquired pneumonia Hospital discharge follow-up Chronic idiopathic constipation Pre-op examination Encounter for routine gynecological examination LFT elevation Encounter for general adult medical examination with abnormal findings Respiratory tract congestion with cough Hospital discharge follow-up COVID-19 Tracheobronchitis COVID-19 Iron deficiency anemia Shoulder pain, right Nausea and vomiting PFO (patent foramen ovale) History of transesophageal echocardiography (LAN) Colitis Abnormal angiogram of head COVID-19 Asthma Thyroid disease GERD (gastroesophageal reflux disease) Anemia Aneurysm Surgical History History of surgery of uterus H/O endoscopy History of H/O brain surgery History of colonoscopy Family History Father Diabetes Arthritis Diverticulitis Leukemia Mental health disorder Lung cancer Mother Anemia Arthritis Colon polyps Myocardial infarction Brother Crohn's disease Testicular cancer Brother Cancer Paternal Grandfather Leukemia Other Substance use disorder Social History Household Members: Significant Other Housing: House Are you a primary career services manager to a significant other at home: No Do you presently have visiting nurse or other home services: No Alcohol intake: former Patient Tobacco Use Status: Former Tobacco user Tobacco use type: Cigarette Cigarettes Per Day: 10 e-Cigarette/Vaping Use: Never Used Advance Directives Date on File: 04/09/21 service: No 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al status: employed 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: [employer]/ right hand dominant Cognitive needs: No Hearing needs: No Vision needs: Yes Questionnaire Thrive Questionnaire Date Thrive assessed: 11/11/23 I am a: Patient What is your living situation today?: I have a steady place to live Within the past 12 months, did the food you bought not last and you didn't have the money to get more?: Sometimes True Within the past 12 months, did you worry whether your food would run out before you got money to buy more?: Sometimes True Do you have trouble paying for medicines?: No Do you have trouble getting transportation to medical appointments?: No Do you have trouble paying your heating and electricity bill?: No Do you have trouble taking care of your child, family member or friend?: No Do you have trouble with day-to-day activities such as bathing, preparing meals, shopping, managing finances, etc.?: No Are you currently unemployed and looking for a job?: No Are you interested in more education?: No Please select the resources that you would like help with: None Currently or been in a relationship where the following occur: No concerns reported THRIVE Score: 2 MARKO-7 AMB Questionnaire MARKO-7 Date MARKO - 7 assessed: 11/11/23 Source: Developed by Drs. Masood Arredondo, Lesly Pruitt, Thor Del Cid and colleagues, with an educational phil from [employer]. Review of Systems Const Denies chills and Denies fever(s) ENT Denies epistaxis and Denies nasal discharge Card Denies chest pain Resp Denies chest congestion, Denies cough and Denies hemoptysis GI Denies diarrhea and Denies nausea Skin/Breast Denies rash Neuro Reports no additional complaints Psych Reports no additional complaints Endo Reports no additional complaints Physical exam (Primary Care) Vital Signs: Last Vital Signs Pulse 96 02/19/24 10:39 BP 126/84 02/19/24 10:39 Pulse Ox 97 02/19/24 10:39 Oxygen Delivery Method Room Air 02/19/24 10:39 BMI result Body Mass Index 35.0 Tobacco/Smoking Status: Tobacco use Status Tobacco use date assessed 10/22/23 02/19/24 10:40 Patient Tobacco Use Status Former Tobacco user 02/19/24 10:40 Tobacco use type Cigarette 02/19/24 10:40 e-Cigarette/Vaping Use Never Used 02/19/24 10:40 Thrive Assessment: Date of Thrive Assessment Date Thrive assessed 11/11/23 02/19/24 10:40 Currently or been in a relationship where the following occur: No concerns reported Const General: cooperative, comfortable and no acute distress Orientation/consciousness: patient oriented x3 HENMT Head: Yes normocephalic Eyes General: appearance normal, both eyes and all related structures Neck Other: Supple, thyroid nonpalpable Neck: Yes supple Resp Effort & Inspection: normal respiratory effort, no cough and no stridor Cardio Rhythm: regular rhythm Heart sounds: S1 normal heart sound present and S2 normal heart sound present Skin General skin exam: turgor normal Neuro General: patient oriented x3, tone normal and moves all extremities Extrem Right lower extremity: no edema Left lower extremity: no edema Coding Level of Care Code Est Pt Level 3 (97282) Diagnoses Other specified hypothyroidism E03.8 Panic anxiety syndrome F41.0 Assessment & Plan Assessment & Plan (1) Other specified hypothyroidism: Code(s): E03.8 - Other specified hypothyroidism Category: Medical (2) Panic anxiety syndrome: Code(s): F41.0 - Panic disorder [episodic paroxysmal anxiety] Category: Medical Plan Follow-up hypothyroidism Patient is on 175 mcg dose since past few months Last time he had thyroid test done was December of last year Patient has had labs since but no thyroid test Complaining of feeling tremors in the morning and sometimes in the afternoon, questioning if it is because of anxiety Patient does have anxiety and panic disorder and is currently seeing a provider for that and taking medication Tremors are usually in the morning and then she is fine Lab order placed she will have it done today Meanwhile continue 175 mcg of levothyroxine Orders: Orders TSH reflex Free T4 Today E03.8 - Other specified hypothyroidism
== END 2024-02-19 10:56 | disposition home or self-care (01) ==
PROVIDERS: PCP Internal Medicine; Visit Provider Internal Medicine
DX: E03.8 Other specified hypothyroidism (principal); F41.0 Panic disorder [episodic paroxysmal anxiety]

== ENCOUNTER → 2024-02-19 10:34 | Outpatient (BNVA) | payer OTHER, SELFPAY | PROVIDERS: PCP Internal Medicine; Visit Provider Internal Medicine | DX: E03.8 Other specified hypothyroidism (principal); F41.0 Panic disorder [episodic paroxysmal anxiety] | CPT/HCPCS: 99212 ==

== ENCOUNTER 2024-02-19 10:56 | Outpatient (REF) | payer OTHER, SELFPAY ==
[2024-02-19 13:59] LABS: TSH reflex Free T4 0.08 uIU/mL (0.32-4.0)
[2024-02-19 15:13] LABS: Free T4 (Free Thyroxine) 1.44 ng/dL (0.71-1.85)
== END 2024-02-19 10:57 | disposition home or self-care (01) ==
LOC: HO.HMGCLDS 10:56
PROVIDERS: PCP Internal Medicine; Visit Provider Internal Medicine
DX: E03.8 Other specified hypothyroidism (principal); Z79.890 Hormone replacement therapy
CPT/HCPCS: 36415; 84439; 84443

== ENCOUNTER 2024-02-21 14:22 | Emergency (ER) | payer OTHER, SELFPAY ==
--- NOTE | ~2024-02-21 | XR_ITS ---
EXAMINATION: XR CHEST CLINICAL INFORMATION: Chest pain for 2 weeks COMPARISON: CT chest November 06, 2023 TECHNIQUE: 2 views of the chest were obtained. FINDINGS: The heart and mediastinal borders are normal. No focal consolidation. No pleural effusion. No pneumothorax. No acute osseous abnormality. XR/XR chest 2V IMPRESSION: Unremarkable examination. Electronically signed by: Lazarus Lechuga MD 02/21/2024 03:40 PM EDT RP
--- NOTE | 2024-02-21 14:23 | ED_ITS ---
HPI - Chest Pain General Chief Complaint: Chest Pain Stated Complaint: cp Time Seen by Provider: 02/21/24 16:43 Source: patient Limitations: no limitations History of Present Illness ED Provider: Nisha Johnson PA-C HPI narrative: Patient is a 54 year old female with a PMH of panic disorder, PTSD, MDD, BPD, and hypothyroidism, who presents today with a complaint of worsening vibrating inside, sternal CP, palpitations, weakness, trembling, confusion, and headaches x2 weeks. Her CP, however, started today, and she describes it as a 4/10 and a feeling of tightness with no radiation. She does have a history of GERD, however states that this pain is different and does not change with antacids. Her trembling and weakness are affecting her daily life, causing her to drop items. She states she now loses her train of thought often. Her headaches are localized to the posterior head and cause her to feel dizzy. She has not found any alleviating factors for any of her symptoms and nothing in particular makes them worse. There have been no changes to medications within the last few months. She is wondering if these symptoms could be correlated to her psychologic disorders. She denies fevers, GI symptoms, and history of present illness. Related Data Home Medications ?Medication ?Instructions ?Recorded ?Confirmed fluticasone 500 mcg-salmeterol 50 1 ea inhalation BID 11/19/23 02/19/24 mcg/dose blistr powdr for inhalation (Advair Diskus) Previous Rx's ?Medication ?Instructions ?Recorded lidocaine 5 % topical patch 1 patch topical DAILY #15 ea 04/11/23 (Lidoderm) bisacodyl 5 mg tablet,delayed 10 mg (2 x 5 mg) PO BEDTIME 30 09/29/23 release (Dulcolax (bisacodyl)) days #60 tabs ipratropium 0.5 mg-albuterol 3 mg 3 ml inhalation Q4-6H PRN wheezing 09/30/23 (2.5 mg base)/3 mL nebulization 30 days #270 mL soln fluticasone propionate 50 2 spray intranasal BID 90 days #16 10/06/23 mcg/actuation nasal grams spray,suspension (Flonase Allergy Relief) epinephrine 0.3 mg/0.3 mL 0.3 mg (0.3 mL) IM Q10M PRN 10/16/23 injection, auto-injector anaphylaxis #2 ea Ventolin HFA 90 mcg/actuation 2 puff inhalation Q4H #18 grams 10/28/23 aerosol inhaler (albuterol sulfate) oxcarbazepine 150 mg tablet 150 mg PO BID #60 tabs 11/13/23 (Trileptal) dexlansoprazole 60 mg 60 mg PO DAILY 90 days #90 caps 11/19/23 capsule,biphase delayed release (Dexilant) simethicone 180 mg capsule 180 mg PO QID 30 days #120 caps 11/19/23 levothyroxine 175 mcg tablet 175 mcg PO QAM 90 days #90 tabs 12/21/23 montelukast 10 mg tablet 10 mg PO DAILY #90 tabs 12/21/23 bupropion HCl 150 mg 24 hr tablet, 150 mg PO QAM #30 tabs 12/22/23 extended release (Wellbutrin XL) dupilumab 300 mg/2 mL subcutaneous 300 mg (2 mL) subcut Q2W 28 days 12/30/23 pen injector (DupixSwitchboard) #4 mL loratadine 10 mg tablet 10 mg PO DAILY 30 days #30 tabs 01/01/24 lorazepam 0.5 mg tablet 0.5 mg PO BID PRN anxiety 15 days 01/22/24 #30 tabs lorazepam 0.5 mg tablet (Ativan) 0.5 mg PO BID PRN anxiety #5 tabs 02/21/24 oxcarbazepine 150 mg tablet 150 mg PO BID #6 tabs 02/21/24 Allergies Allergy/AdvReac Type Severity Reaction Status Date / Time niacin Allergy Intermediate skin Verified 02/21/24 14:26 [Niaspan Extended-Release] blisters tramadol Allergy Intermediate seizures Verified 02/21/24 14:26 barley [BARLEY] Allergy Unknown UNKNOWN Verified 02/21/24 14:26 fluticasone [Advair Diskus] Allergy Unknown Shortness Verified 02/21/24 14:26 of Breath ibuprofen Allergy Unknown Swelling Verified 02/21/24 14:26 naratriptan Allergy Unknown unknown Verified 02/21/24 14:26 Penicillins [PENICILLINS] Allergy Unknown Unknown Verified 02/21/24 14:26 sumatriptan Allergy Unknown unknown Verified 02/21/24 14:26 trazodone [TRAZODONE] Allergy Unknown UNKNOWN Verified 02/21/24 14:26 omalizumab [From Xolair] AdvReac Severe Anaphylaxis Verified 02/21/24 14:26 equate cough drops sugar free Allergy Mild Unknown Uncoded 01/19/24 08:44 Review of Systems 2 Review of Systems: Yes all other systems are reviewed and are negative Constitutional: Constitutional: Reports body ache(s), Denies fever(s), Denies frequent falls, Reports headache(s), Reports increased appetite, Reports weakness and Denies weight gain Eyes: Eyes: Denies change in vision ENT: Reports dizziness and Reports headache(s) Cardiovascular: Cardiovascular: Denies Abdominal Distension, Reports chest pain, Denies syncope, Denies edema, Reports palpitations and Denies dyspnea Respiratory: Respiratory: Denies cough and Denies dyspnea Gastrointestinal: Gastrointestinal: Denies abdominal pain, Denies change in stool character, Denies nausea and Denies vomiting Genitourinary: Genitourinary: Denies dysuria, Denies pelvic pain and Denies urinary incontinence Musculoskeletal: Musculoskeletal: Denies arthralgias, Denies numbness and Denies tingling Neurologic: Reports dizziness, Denies syncope, Denies frequent falls, Reports headache(s), Denies numbness, Denies Sensory deficit (Neuro), Denies tingling and Reports weakness Psychiatric: Psychiatric: Reports anxiety, Denies homicidal ideation and Denies suicidal ideation Endocrine: Endocrine: Reports palpitations PMFSH Past Medical History Medical History Other specified hypothyroidism Colon cancer screening Left sided abdominal pain Influenza A H1N1 infection Stool incontinence Shoulder pain Anemia Bronchitis due to COVID-19 virus COVID Acute pneumonia Work related injury Acute diarrhea Paresthesias in left hand Dysuria PFO (patent foramen ovale) Shortness of breath Community acquired pneumonia Hospital discharge follow-up Chronic idiopathic constipation Pre-op examination Encounter for routine gynecological examination LFT elevation Encounter for general adult medical examination with abnormal findings Respiratory tract congestion with cough Hospital discharge follow-up COVID-19 Tracheobronchitis COVID-19 Iron deficiency anemia Shoulder pain, right Nausea and vomiting PFO (patent foramen ovale) History of transesophageal echocardiography (LAN) Colitis Abnormal angiogram of head COVID-19 Asthma Thyroid disease GERD (gastroesophageal reflux disease) Anemia Aneurysm Surgical History History of surgery of uterus H/O endoscopy History of H/O brain surgery History of colonoscopy Family History Family History Father Diabetes Arthritis Diverticulitis Leukemia Mental health disorder Lung cancer Mother Anemia Arthritis Colon polyps Myocardial infarction Brother Crohn's disease Testicular cancer Brother Cancer Paternal Grandfather Leukemia Other Substance use disorder Social History Social History Household Members: Significant Other Housing: House Are you a primary care center manager to a significant other at home: No Do you presently have visiting nurse or other home services: No Alcohol intake: former Patient Tobacco Use Status: Former Tobacco user Tobacco use type: Cigarette Cigarettes Per Day: 10 Smoked in Last 30 Days: No e-Cigarette/Vaping Use: Never Used Use of substances other than those prescribed or required for medical reasons: No Advance Directives: Yes Advance Directives on File: Yes Advance Directives Date on File: 04/09/21 Do you have a plan to hurt others: No Plan Patient : No service: No 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al status: employed 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: [employer]/ right hand dominant Cognitive needs: No Hearing needs: No Vision needs: Yes Physical Exam 2 Vital Signs: Vital Signs: Last Vital Signs Temp 98.1 F 02/21/24 16:29 Pulse 79 02/21/24 16:29 Resp 18 02/21/24 16:29 BP 152/88 H 02/21/24 16:29 Pulse Ox 97 02/21/24 16:29 O2 Del Method Room Air 02/21/24 16:29 BMI result Body Mass Index 34.6 Const: General: cooperative, healthy appearing, comfortable and no acute distress Nutritional Appearance: overweight Orientation/consciousness: p atient oriented x3 Limitations: no limitations Eyes: General: appearance normal, both eyes and all related structures C onjunctivae: conjunctivae normal Sclerae: sclerae normal Pupils: Equal, round and reactive pupils present EOM: EOMs intact bilaterally Neck: Neck: Yes no meningeal signs Resp: Effort & Inspection: normal respiratory effort, able to speak in complete sentences, no cough and no respiratory distress Auscultation: clear to auscultation bilaterally, no rales, no rhonchi and no wheezes Cardio: Jugular venous distension: no JVD Rate: regular rate Rhythm: r egular rhythm Heart sounds: S1 normal heart sound present and S2 normal heart sound present GI: Inspection: Yes normal to inspection and No distended Palpation (GI): n ontender and no guarding Skin: Other: warm and dry, no rash Neuro: General: patient oriented x3, no meningeal signs, no focal motor deficits and CN's II-XI intact bilaterally Cranial nerves: Yes CN's II-XII intact bilaterally and Yes Equal, round and reactive pupils present Cognition (Neuro): normal cognition Sensory Exam: No Sensory deficit (Neuro) Extrem: General: Yes normal to inspection and Yes full ROM Psych: Other: calm and cooperative Appearance: grossly normal Speech and movement: Normal speech and movement present and Clear speech present Affect: normal affect Attitude: cooperative Course Course Course Narrative: This is a rapid medical exam. Defer additional HPI, ROS, PE to primary provider. 54 yo female with PMH of anxiety, PTSD, borderline personality disorder, GERD, asthma here with complaints of intermittent chest pain x several days, shaking for weeks. Denies diaphoresis, vomiting, shortness of breath. Will obtain labs, EKG, CXR VSS -A. 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 Administered Discontinued Medications Generic Name Dose Route Start Last Admin Trade Name Arthurq PRN Reason Stop Dose Admin Lorazepam 0.5 mg 02/21/24 16:51 02/21/24 17:19 Lorazepam 0.5 Mg Tablet PO 02/21/24 16:52 0.5 mg ONCE ONE Administration Medical Decision Making Medical Decision Making [facility] Narrative: Satya Johnson PA-C have personally assessed diminished the patient, Nuvia RUSHING observed and helped to formulate the documentation Patient is a 54 year old female with a PMH of panic disorder, PTSD, MDD, BPD, and hypothyroidism, who presents today with a complaint of worsening vibrating inside, sternal CP, palpitations, weakness, trembling, confusion, and headaches x2 weeks. Her CP, however, started today, and she describes it as a 4/10 and a feeling of tightness with no radiation. She does have a history of GERD, however states that this pain is different and does not change with antacids. Her trembling and weakness are affecting her daily life, causing her to drop items. She states she now loses her train of thought often. Her headaches are localized to the posterior head and cause her to feel dizzy. She has not found any alleviating factors for any of her symptoms and nothing in particular makes them worse. There have been no changes to medications within the last few months. She is wondering if these symptoms could be correlated to her psychologic disorders. She denies fevers, GI symptoms, and history of present illness. Patient has a history of panic disorder, PTSD, MDD, BPD, anemia, asthma, chronic vertigo, memory changes, and hypothyroidism Ddx: ACS, anxiety, electrolyte imbalance, anemia, hyperthyroidism, GERD, medication side effect, infection/sepsis, UTI, brain tumor Plan: Given that the patient has a history of multiple psychological disorders and a recent fracture of her neck and left humerus, I believe the most likely cause of her symptoms is PTSD/anxiety. She states that she had to miss a few days of work due to the trembling and weakness, and that is where she sustained her fall and subsequent fracture. She also mentions that she ran out of her lorazepam this week, which seems to be when symptoms became worse and the CP began. She also has no objective symptoms of trembling or weakness on exam. Will assess for other causes and diagnose based on exclusion. ACS was considered, however given her history of GERD/psych disorders and the time frame of symptoms, I don't believe this is likely. Will check EKG and trop to rule out. Considered medication side effect however there have been no changes within the last few months and therefore I think this is unlikely. It could be a UTI, however the patient denies all /GI symptoms and is afebrile. Will check UA to rule out. It could be an infection/sepsis, however she had no preceding illness, is afebrile, and has no objective signs of infection, I also think this is unlikely. Will check CBC and CMP to rule out. Given that the patient is currently taking Levothyroxine for hypothyroidism, it could be possible that she has subsequent hyperthyroidism. This is unlikely, given the patient states her PCP checked her thyroid levels on Thursday and they were WNL. Will recheck. It could be an electrolyte imabalance or anemia given the symptoms of weakness, palpitations, trembling, and confusion, however I believe it is more likely to be PTSD/anxiety. Will rule out with CBC and CMP. It could also be a brain tumor, however, I would like to assess for other causes first. Per Nisha Johnson PA-C I do believe the patient's symptoms are secondary to poorly controlled anxiety. ACS was considered, despite having no risk factors for coronary artery disease other than age, screening labs, troponin EKG and chest x-ray were obtained. Her pain is also reproducible, palpation of chest wall elicits pain, she states she does perform heavy lifting at work, this is consistent with some form of musculoskeletal strain. She has a pending appointment with a new psychiatrist this week on the , she currently ran out of 2 of her medications; she takes 0.5 mg of Ativan as needed twice a day for her breakthrough anxiety, and oxcarbazepine 150 mg twice a day. I advised the patient that I would send short prescriptions to her pharmacy to get her through until the , she is thankful, she has been very tearful since she has been here. I have independently reviewed the following tests: Labs: No leukocytosis, not anemic, no electrolyte abnormality, troponin negative EKG: Sinus rhythm, rate 88, no ischemic changes no ectopy, nonspecific T-wave abnormalities Chest x-ray: XR/XR chest 2V IMPRESSION: Unremarkable examination. Electronically signed by: Lazarus Lechuga MD 02/21/2024 03:40 PM EDT RP Lab Data 02/21/24 14:48 02/21/24 14:48 Labs: Lab Results 02/21/24 Range/Units 14:48 WBC 8.7 (4.8-10.8) X10*3/uL RBC 4.72 (4.20-5.50) X10*6/uL Hgb 12.8 (12.0-16.0) g/dl Hct 38.3 (37.0-47.0) % MCV 81.1 (80.0-98.0) fL MCH 27.1 (27.0-33.0) pg MCHC 33.4 (31.0-35.0) g/dl RDW 14.2 (11.0-16.0) % Plt Count 250 (160-400) X10*3/uL MPV 10.1 (9.4-12.3) fL Immature Gran % (Auto) 0.3 (0.0-0.4) % Neut % (Auto) 78.0 H (45-73) % Lymph % (Auto) 14.5 L (20-40) % Hooker % (Auto) 5.7 (2-11) % Eos % (Auto) 1.2 (0-4) % Baso % (Auto) 0.3 (0-2) % Lymph # (Auto) 1.3 (1.2-4.9) X10*3/uL Hooker # (Auto) 0.5 (0.1-1.2) X10*3/uL Eos # (Auto) 0.1 (0.0-0.4) X10*3/uL Baso # (Auto) 0.0 (0.0-0.2) X10*3/uL Abs Immat Gran (auto) 0.03 (0.00-0.03) X10*3/uL Absolute Neuts (auto) 6.8 (2.0-8.3) x10*3/uL Absolute Nucleated RBC 0.000 (0.0-0.012) X10*3/uL Nucleated RBC % (auto) 0.0 (0.0-0.2) /100WBC PT 10.6 L (10.9-12.4) SEC INR 0.9 (0.9-1.1) Sodium 139 (135-145) mmol/L Potassium 3.9 (3.3-5.1) mmol/L Chloride 109 H (96-108) mmol/L Carbon Dioxide 20 L (22-29) mmol/L Anion Gap 14 (12-20) BUN 10 (9-16) mg/dL Creatinine 0.75 (0.5-1.4) mg/dL Estim Creat Clear Calc 98.4 Estimated GFR > 60 Random Glucose 105 (60-115) mg/dL Calcium 9.4 (8.4-10.2) mg/dL Total Bilirubin 0.2 (0.0-1.0) mg/dL Direct Bilirubin < 0.2 (0.0-0.5) mg/dL AST 14 (5-31) U/L ALT 12 (0-31) U/L Alkaline Phosphatase 131 H (39-117) U/L Troponin I High Sens < 2.7 (<3.5-17.0) ng/L Total Protein 6.5 (6.5-8.0) g/dL Albumin 4.0 (3.5-5.0) g/dL Discharge Plan Discharge Clinical Impression: Acute chest wall pain, Anxiety Patient Disposition: Home, Self-Care Instructions: Anxiety (ED), Chest Wall Pain (ED) Additional Instructions: Your exam was most consistent with chest wall pain, and I do believe your anxiety is currently poorly controlled which is contributing to your symptoms. Screening labs including a cardiac enzymes were obtained, they were negative. There were no concerning changes on her EKG in your chest x-ray was clear. Keep your pending medication appointment for this week. I am writing prescriptions for your Ativan and oxcarbazepine to get you through until the . Prescriptions: New lorazepam [Ativan] 0.5 mg tablet 0.5 mg PO BID PRN (Reason: anxiety) Qty: 5 0RF oxcarbazepine 150 mg tablet 150 mg PO BID Qty: 6 0RF No Action bisacodyl [Dulcolax (bisacodyl)] 5 mg tablet,delayed release (DR/EC) 10 mg PO BEDTIME 30 Days Qty: 60 3RF ipratropium-albuterol 0.5 mg-3 mg(2.5 mg base)/3 mL solution for nebulization 3 ml inhalation Q4-6H PRN (Reason: wheezing) 30 Days Qty: 270 6RF fluticasone propionate [Flonase Allergy Relief] 50 mcg/actuation spray,suspension 2 spray intranasal BID 90 Days Qty: 16 3RF Rx Instructions: administer into each nostril albuterol sulfate [Ventolin HFA] 90 mcg/actuation HFA aerosol inhaler 2 puff inhalation Q4H Qty: 18 0RF levothyroxine 175 mcg tablet 175 mcg PO QAM 90 Days Qty: 90 0RF montelukast 10 mg tablet 10 mg PO DAILY Qty: 90 0RF bupropion HCl [Wellbutrin XL] 150 mg tablet extended release 24 hr 150 mg PO QAM Qty: 30 2RF Dupixent Pen 300 mg/2 mL pen injector 300 mg subcut Q2W 28 Days Qty: 4 12RF Rx Instructions: Initial dose 600 mg, then 300 mg every 2 weeks subcutaneously loratadine 10 mg tablet 10 mg PO DAILY 30 Days Qty: 30 6RF lorazepam 0.5 mg tablet 0.5 mg PO BID PRN (Reason: anxiety) 15 Days Qty: 30 0RF lidocaine [Lidoderm] 5 % adhesive patch,medicated 1 patch topical DAILY Qty: 15 0RF Rx Instructions: leave on most painful area for up to 12 hrs epinephrine 0.3 mg/0.3 mL auto-injector 0.3 mg IM Q10M PRN (Reason: anaphylaxis) Qty: 2 0RF Rx Instructions: for 2 doses fluticasone propion-salmeterol [Advair Diskus] 500-50 mcg/dose blister with device 1 ea inhalation BID simethicone 180 mg capsule 180 mg PO QID 30 Days Qty: 120 6RF Rx Instructions: after meals dexlansoprazole [Dexilant] 60 mg capsule,biphase delayed releas 60 mg PO DAILY 90 Days Qty: 90 3RF oxcarbazepine [Trileptal] 150 mg tablet 150 mg PO BID Qty: 60 2RF Print Language: Wallisian
--- NOTE | 2024-02-21 14:23 | ECG_ITS ---
Test Reason : CHEST PAIN Blood Pressure : / mmHG Vent. Rate : 088 BPM Atrial Rate : 088 BPM P-R Int : 156 ms QRS Dur : 082 ms QT Int : 354 ms P-R-T Axes : 025 -13 012 degrees QTc Int : 428 ms Normal sinus rhythm Possible Left atrial enlargement Septal infarct (cited on or before 06-NOV-2023) Possible Lateral infarct (cited on or before 06-NOV-2023) Abnormal ECG When compared with ECG of 06-NOV-2023 18:19, No significant changes seen Referred By: Yanira Manuel Electronically Signed By:RACHEL AIKEN
[2024-02-21 14:25] VITALS: BP 145/78; PULSE 94; RESP 18; TEMP 36.4; O2SAT 96; BMI 34.6
[2024-02-21 14:55] LABS: MANUAL DIFF FLAG NO
[2024-02-21 14:56] LABS: Basophils Percent Auto 0.3 % (0-2); Eosinophils Absolute Auto 0.1 X10*3/uL (0.0-0.4); Eosinophils Percent Auto 1.2 % (0-4); Hematocrit 38.3 % (37.0-47.0); Hemoglobin 12.8 g/dl (12.0-16.0); Imm Gran Abs Auto 0.03 X10*3/uL (0.00-0.03); Imm Gran Pct Auto 0.3 % (0.0-0.4); Lymphocytes Absolute Auto 1.3 X10*3/uL (1.2-4.9); Lymphocytes Percent Auto 14.5 % (20-40); Mean Corpuscular HGB Conc 33.4 g/dl (31.0-35.0); Mean Corpuscular Hemoglobin 27.1 pg (27.0-33.0); Mean Corpuscular Volume 81.1 fL (80.0-98.0); Mean Platelet Volume 10.1 fL (9.4-12.3); Monocytes Absolute Auto 0.5 X10*3/uL (0.1-1.2); Monocytes Percent Auto 5.7 % (2-11); Neutrophils Absolute Auto 6.8 x10*3/uL (2.0-8.3); Platelet Count 250 X10*3/uL (160-400); Red Blood Count 4.72 X10*6/uL (4.20-5.50); Red Cell Distribution Width 14.2 % (11.0-16.0); White Blood Count 8.7 X10*3/uL (4.8-10.8)
[2024-02-21 15:04] LABS: INTERNATIONAL NORM RATIO 0.9 (0.9-1.1); Prothrombin Time 10.6 SEC (10.9-12.4)
[2024-02-21 15:10] LABS: Alanine Aminotransferase 12 U/L (0-31); Alkaline Phosphatase 131 U/L (39-117); Anion Gap 14 (12-20); Aspartate Amino Transferase 14 U/L (5-31); Bilirubin Direct < 0.2 mg/dL (0.0-0.5); Bilirubin Total 0.2 mg/dL (0.0-1.0); Blood Urea Nitrogen 10 mg/dL (9-16); Calcium 9.4 mg/dL (8.4-10.2); Carbon Dioxide 20 mmol/L (22-29); Chloride 109 mmol/L (96-108); Creatinine Clr Calc Pharmacy 98.4; Estimated Glomerular Filt Rate > 60; Glucose Random 105 mg/dL (60-115); Potassium 3.9 mmol/L (3.3-5.1); Sodium 139 mmol/L (135-145); Total Protein 6.5 g/dL (6.5-8.0)
[2024-02-21 15:19] LABS: Troponin-I High Sensitivity < 2.7 ng/L (<3.5-17.0)
[2024-02-21 16:29] VITALS: BP 152/88; PULSE 79; RESP 18; TEMP 36.7; O2SAT 97
--- NOTE | 2024-02-21 16:40 | PC.NURSE ---
patient comes through external triage with cc of shaking and intermittent chest pain. patient states she is having 3/10 pains in her chest and some shaking that started a few days ago, patinet visibly tremulous upon assessment, states she has a hx of anxiety and ran out of her lorazepam a few days ago. 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 patient became tearful when speaking about work, denies SI/HI to this RN, state she also has a hx of thyroid problems . patient denies shortness of breath, or swelling to extremities. VS WNL, patient resting on stretcher, playing game on phone. blood work and EKG completed in triage. provided with sherry, awaiting MD venegas
[2024-02-21] MEDS: LORazepam 0.5 MG TABLET PO (17:19)
[2024-02-21 17:52] VITALS: BP 171/89; PULSE 82; RESP 20; TEMP 36.9; O2SAT 100
== END 2024-02-21 17:58 | disposition home or self-care (01) ==
PROVIDERS: Nurse Practitioner Family; Emergency Provider Internal Medicine; PCP Internal Medicine
DX: R07.89 Other chest pain (principal); R00.2 Palpitations; F41.9 Anxiety disorder, unspecified; R51.9 Headache, unspecified; Z87.891 Personal history of nicotine dependence; Z79.899 Other long term (current) drug therapy
CPT/HCPCS: 36415; 71046; 80048; 80076; 84484; 85025; 85610; 93005; 99284; 99285

== ENCOUNTER → 2024-02-21 14:23 | Outpatient (BNV) | payer OTHER, SELFPAY | PROVIDERS: Emergency Provider Internal Medicine; PCP Internal Medicine; Visit Provider Internal Medicine | DX: R07.9 Chest pain, unspecified (principal); R94.31 Abnormal electrocardiogram [ECG] [EKG] | CPT/HCPCS: 93010 ==

== ENCOUNTER 2024-03-18 13:59 | Outpatient (AMB) | payer OTHER, SELFPAY ==
[2024-03-18 14:04] VITALS: BP 120/76; PULSE 92; O2SAT 96; BMI 34.7
--- NOTE | 2024-03-18 14:04 | A.OFFVIS_ITS ---
Vital Signs 03/18/24 14:04 Height 5 ft 5 in Weight 208 lb 5.389 oz BMI 34.7 BP 120/76 Blood Pressure Location Rt brachial Position Sitting Pulse 92 Pulse Source Doppler Pulse Oximetry (%) 96 Oxygen Delivery Method Room Air Intake Visit Reasons: chest congestion/cough Allergies niacin [Niaspan Extended-Release] Allergy (Intermediate, Verified 02/21/24 14:26) skin blisters tramadol Allergy (Intermediate, Verified 02/21/24 14:26) seizures barley [BARLEY] Allergy (Unknown, Verified 02/21/24 14:26) UNKNOWN fluticasone [Advair Diskus] Allergy (Unknown, Verified 02/21/24 14:26) Shortness of Breath ibuprofen Allergy (Unknown, Verified 02/21/24 14:26) Swelling naratriptan Allergy (Unknown, Verified 02/21/24 14:26) unknown Penicillins [PENICILLINS] Allergy (Unknown, Verified 02/21/24 14:26) Unknown sumatriptan Allergy (Unknown, Verified 02/21/24 14:26) unknown trazodone [TRAZODONE] Allergy (Unknown, Verified 02/21/24 14:26) UNKNOWN omalizumab [From Xolair] Adverse Reaction (Severe, Verified 02/21/24 14:26) Anaphylaxis rubber, unspecified Adverse Reaction (Severe, Verified 03/18/24 14:12) Unknown equate cough drops sugar free Allergy (Mild, Uncoded 01/19/24 08:44) Unknown silicone Adverse Reaction (Severe, Uncoded 03/18/24 14:12) Unknown vaseline Adverse Reaction (Severe, Uncoded 03/18/24 14:12) hives HPI HPI chest congestion/cough: Details: 54-year-old lady, nonsmoker, followed for underlying severe persistent asthma with allergic component. She has been using Xolair, Symbicort, duo nebs, and albuterol MDI with excellent control of her symptoms, unfortunately she did develop an allergic reaction to Xolair necessitating stopping it, thus she was switched to Dupixent with improved symptom control. Today she presents complain of while bronchitis symptoms. [facility] Medical History Other specified hypothyroidism Colon cancer screening Left sided abdominal pain Influenza A H1N1 infection Stool incontinence Shoulder pain Anemia Bronchitis due to COVID-19 virus COVID Acute pneumonia Work related injury Acute diarrhea Paresthesias in left hand Dysuria PFO (patent foramen ovale) Shortness of breath Community acquired pneumonia Hospital discharge follow-up Chronic idiopathic constipation Pre-op examination Encounter for routine gynecological examination LFT elevation Encounter for general adult medical examination with abnormal findings Respiratory tract congestion with cough Hospital discharge follow-up COVID-19 Tracheobronchitis COVID-19 Iron deficiency anemia Shoulder pain, right Nausea and vomiting PFO (patent foramen ovale) History of transesophageal echocardiography (LAN) Colitis Abnormal angiogram of head COVID-19 Asthma Thyroid disease GERD (gastroesophageal reflux disease) Anemia Aneurysm Surgical History History of surgery of uterus H/O endoscopy History of H/O brain surgery History of colonoscopy Family History Father Diabetes Arthritis Diverticulitis Leukemia Mental health disorder Lung cancer Mother Anemia Arthritis Colon polyps Myocardial infarction Brother Crohn's disease Testicular cancer Brother Cancer Paternal Grandfather Leukemia Other Substance use disorder Social History Household Members: Significant Other Housing: House Are you a primary care attendant to a significant other at home: No Do you presently have visiting nurse or other home services: No Alcohol intake: former Patient Tobacco Use Status: Former Tobacco user Tobacco use type: Cigarette Cigarettes Per Day: 10 e-Cigarette/Vaping Use: Never Used Advance Directives Date on File: 04/09/21 service: No 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al status: employed 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: [employer]/ right hand dominant Cognitive needs: No Hearing needs: No Vision needs: Yes Review of Systems Const Denies daytime sleepiness, Denies excessive sweating, Denies fatigue, Denies fever(s), Denies lethargy, Denies malaise, Denies night sweats, Denies snoring and Denies weight loss Eyes Denies blurry vision and Denies itchy eyes ENT Reports nasal congestion, Reports post nasal drip, Denies sinus pain, Denies sinus pressure and Denies other ( Thrush) Card Denies chest pain, Denies pedal edema, Denies dyspnea, Denies orthopnea and Denies paroxysmal nocturnal dyspnea Resp Reports cough, Denies hemoptysis, Reports excessive phlegm production, Denies dyspnea, Denies snoring and Denies wheezing GI Denies abdominal pain and Denies heartburn Musc Denies myalgias, Denies arthralgias and Denies joint swelling Skin/Breast Denies rash Neuro Denies memory loss and Denies seizure-like activity Psych Denies abnormal sleep pattern, Denies anxiety and Denies memory loss Endo Denies excessive sweating, Denies fatigue and Denies heat intolerance Denny/Lymph Denies easy bruising Aller/Immun Denies itchy eyes, Denies seasonal rhinorrhea and Denies wheezing Physical Exam Vital Signs: Last Vital Signs Pulse 92 03/18/24 14:04 BP 120/76 03/18/24 14:04 Pulse Ox 96 03/18/24 14:04 Oxygen Delivery Method Room Air 03/18/24 14:04 BMI result Body Mass Index 34.7 Const General: no acute distress and alert Nutritional Appearance: not obese Orientation/consciousness: Other orientation findings ( oriented) HEENT Head: Yes atraumatic Eyes General: appearance normal, both eyes and all related structures Sclerae: sclerae normal EOM: EOMs intact bilaterally Neck Neck: Yes supple Lymphatic: no lymphadenopathy noted Resp Effort & Inspection: normal respiratory effort and no use of accessory muscles Auscultation: clear to auscultation bilaterally Cardio Rate: regular rate Rhythm: regular rhythm Heart sounds: no gallops, no murmurs and no rubs Skin General skin exam: other ( warm) Extrem General: No clubbing, No cyanosis and No edema Assessment & Plan Assessment & Plan (1) Severe persistent allergic asthma: Code(s): J45.50 - Severe persistent asthma, uncomplicated Category: Medical Plan: Baseline controlled on Dupixent, Advair, duo nebs, and albuterol MDI. Continue current regimen. Now with exacerbation, will treat with a course of prednisone and azithromycin. (2) Environmental allergies: Code(s): Z91.09 - Other allergy status, other than to drugs and biological substances Category: Medical Plan: Improved control on Dupixent. Continue current regimen of Dupixent and Singulair. Medications: New azithromycin For 250 mg dose pack: take 500 mg today (day 1), then 250 mg for 4 days (days 2-5) PO 6 tabs 0RF prednisone 40 mg (2 x 20 mg) PO DAILY 10 tabs 0RF Coding Level of Care Code Est Pt Level 4 (84663) Complex EM visit Add On G2211 Diagnoses Severe persistent allergic asthma J45.50 Environmental allergies Z91.09
== END 2024-03-18 14:25 | disposition home or self-care (01) ==
PROVIDERS: PCP Internal Medicine; Visit Provider Internal Medicine Pulmonary Disease
DX: J45.50 Severe persistent asthma, uncomplicated (principal); Z91.09 Other allergy status, other than to drugs and biological substances
CPT/HCPCS: 99214; G2211

== ENCOUNTER → 2024-03-18 13:59 | Outpatient (BNVA) | payer OTHER, SELFPAY | PROVIDERS: PCP Internal Medicine; Visit Provider Internal Medicine Pulmonary Disease | DX: J45.50 Severe persistent asthma, uncomplicated (principal); Z91.09 Other allergy status, other than to drugs and biological substances | CPT/HCPCS: 99212 ==

== ENCOUNTER 2024-04-24 16:05 | Emergency (ER) | payer OTHER, SELFPAY ==
--- NOTE | ~2024-04-24 | CT_ITS ---
CLINICAL HISTORY: fall, head pressure CT head without contrast Comparison: 11/30/2022 Findings: No intra-axial mass, midline shift, hydrocephalus, or acute hemorrhage. No significant atrophy-like change or white matter disease. 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 The visualized paranasal sinuses and mastoid air cells are normal. The orbits are within normal limits. There is no acute fracture. IMPRESSION: No skull fracture or intracranial hemorrhage. This document has been electronically signed by: Iza Hope MD on 04/24/2024 18:00:00
--- NOTE | ~2024-04-24 | XR_ITS ---
CLINICAL HISTORY: fall, right shoulder pain 3 view right shoulder Comparison: DX - XR SHOULDER RT MIN 2V - 08/27/20 08:17 EDT Findings: Bones intact. No dislocations. Very mild arthritic change. No erosions. No radiopaque foreign body. IMPRESSION: 1. No acute findings This document has been electronically signed by: Iza Hope MD on 04/24/2024 17:27:14
--- NOTE | ~2024-04-24 | XR_ITS ---
CLINICAL HISTORY: fall hip pain 3 view, pelvis and right hip Comparison: CR - XR HIP LT MIN 2V - 04/11/23 17:20 EST Findings: The bones are intact. There is a small bone island within the left iliac bone without change. No significant arthritic change. The soft tissues are unremarkable. IMPRESSION: No acute findings. This document has been electronically signed by: Iza Hope MD on 04/24/2024 17:45:55
--- NOTE | ~2024-04-24 | CT_ITS ---
CLINICAL HISTORY: L pneumo on c spine CT Exam: CT of the chest without contrast Comparison: Chest x-ray from 02/21/2024 Findings: Left apical opacities are favored to represent scarring extend to pleural surface. Mild pneumonitis could be considered, given ground-glass noted more inferiorly in the left upper lobe (image number 98 of series 6). No lobar consolidation. No pneumothorax or pleural effusion. No enlarged mediastinal lymphadenopathy. Mild mediastinal fluid present. Least mild emphysematous changes including left lung apex. Mild secretions noted imaged trachea. No pneumothorax or pleural effusion. No displaced rib fracture. Mild vertebral height losses appear old chronic. Cholelithiasis in the partially imaged gallbladder. Mild volume loss of the partially imaged pancreas. Splenomegaly with spleen measuring 15 cm. Subcutaneous edema is noted. IMPRESSION: 1. Left apical opacities likely reflect scarring. Adjacent minimal opacities may reflect minimal pneumonitis. 2. Emphysematous changes. 3. Cholelithiasis. 4. Splenomegaly in the imaged abdomen. This document has been electronically signed by: Zackary Mendez MD on 04/24/2024 20:11:09
--- NOTE | ~2024-04-24 | CT_ITS ---
CLINICAL HISTORY: fall, neck pain CT cervical spine without contrast Comparison: CT/SR - CAT SCAN CERVICAL SPINE [id number] - 12/28/14 14:06 EDT Findings: Normal vertebral body alignment. No significant degenerative change. No acute fractures or dislocations. Visualized intracranial contents are unremarkable. No cervical fluid collections or masses. Mild scarring at the left lung apex. There may be a tiny pocket of gas within the left medial pleural space. IMPRESSION: 1. Findings raise the possibility of a tiny left-sided pneumothorax. Consider further evaluation with chest CT. 2. No cervical spine fracture. This document has been electronically signed by: Iza Hope MD on 04/24/2024 17:49:12
[2024-04-24 16:09] VITALS: BP 142/79; PULSE 84; RESP 18; TEMP 36.6; O2SAT 97; BMI 35.6
--- NOTE | 2024-04-24 16:12 | ED.GENADULT ---
HPI - General Adult General Chief complaint: Fall Stated complaint: neck/back pain s/p fall at work 04/23/24 Time Seen by Provider: 04/24/24 19:50 Source: patient Mode of arrival: ambulatory Limitations: no limitations History of Present Illness ED Provider: HPI narrative: Patient's history of fibromyalgia migraine headache tripped over a stool at work without significant head injury since then she has not feeling right having difficulty in focusing no loss of vision multiple symptoms no nausea no vomiting Related Data Home Medications ?Medication ?Instructions ?Recorded ?Confirmed fluticasone 500 mcg-salmeterol 50 1 ea inhalation BID 11/19/23 02/19/24 mcg/dose blistr powdr for inhalation (Advair Diskus) Previous Rx's ?Medication ?Instructions ?Recorded lidocaine 5 % topical patch 1 patch topical DAILY #15 ea 04/11/23 (Lidoderm) fluticasone propionate 50 2 spray intranasal BID 90 days #16 10/06/23 mcg/actuation nasal grams spray,suspension (Flonase Allergy Relief) epinephrine 0.3 mg/0.3 mL 0.3 mg (0.3 mL) IM Q10M PRN 10/16/23 injection, auto-injector anaphylaxis #2 ea oxcarbazepine 150 mg tablet 150 mg PO BID #60 tabs 11/13/23 (Trileptal) bupropion HCl 150 mg 24 hr tablet, 150 mg PO QAM #30 tabs 12/22/23 extended release (Wellbutrin XL) dupilumab 300 mg/2 mL subcutaneous 300 mg (2 mL) subcut Q2W 28 days 12/30/23 pen injector (Dupixent) #4 mL lorazepam 0.5 mg tablet 0.5 mg PO BID PRN anxiety 15 days 01/22/24 #30 tabs lorazepam 0.5 mg tablet (Ativan) 0.5 mg PO BID PRN anxiety #5 tabs 02/21/24 oxcarbazepine 150 mg tablet 150 mg PO BID #6 tabs 02/21/24 Ventolin HFA 90 mcg/actuation 2 puff inhalation Q4H #18 grams 02/24/24 aerosol inhaler (albuterol sulfate) ipratropium 0.5 mg-albuterol 3 mg 3 ml inhalation Q4-6H PRN wheezing 10/30/24 (2.5 mg base)/3 mL nebulization 30 days #270 mL soln levothyroxine 150 mcg tablet 150 mcg PO QAM 90 days #90 tabs 02/26/24 loratadine 10 mg tablet 10 mg PO DAILY 30 days #30 tabs 02/26/24 montelukast 10 mg tablet 10 mg PO DAILY #90 tabs 02/26/24 azithromycin 250 mg tablet See Rx Instructions PO .COMPLEX #6 03/18/24 tabs prednisone 20 mg tablet 40 mg (2 x 20 mg) PO DAILY #10 tabs 03/18/24 bisacodyl 5 mg tablet,delayed 10 mg (2 x 5 mg) PO BEDTIME 30 04/18/24 release (Dulcolax (bisacodyl)) days #60 tabs dexlansoprazole 60 mg 60 mg PO DAILY #90 caps 04/18/24 capsule,biphase delayed release (Dexilant) simethicone 180 mg capsule 180 mg PO QID 30 days #120 caps 04/18/24 cyclobenzaprine 10 mg tablet 10 mg PO Q8H #20 tabs 04/24/24 oxycodone 5 mg tablet 5 mg PO Q6H PRN pain #20 tabs 04/24/24 Allergies Allergy/AdvReac Type Severity Reaction Status Date / Time niacin Allergy Intermediate skin Verified 04/24/24 16:17 [Niaspan Extended-Release] blisters tramadol Allergy Intermediate seizures Verified 04/24/24 16:17 barley [BARLEY] Allergy Unknown UNKNOWN Verified 04/24/24 16:17 fluticasone [Advair Diskus] Allergy Unknown Shortness Verified 04/24/24 16:17 of Breath ibuprofen Allergy Unknown Swelling Verified 04/24/24 16:17 naratriptan Allergy Unknown unknown Verified 04/24/24 16:17 Penicillins [PENICILLINS] Allergy Unknown Unknown Verified 04/24/24 16:17 sumatriptan Allergy Unknown unknown Verified 04/24/24 16:17 trazodone [TRAZODONE] Allergy Unknown UNKNOWN Verified 04/24/24 16:17 omalizumab [From Xolair] AdvReac Severe Anaphylaxis Verified 04/24/24 16:17 rubber, unspecified AdvReac Severe Unknown Verified 04/24/24 16:17 equate cough drops sugar free Allergy Mild Unknown Uncoded 01/19/24 08:44 silicone AdvReac Severe Unknown Uncoded 03/18/24 14:12 vaseline AdvReac Severe hives Uncoded 03/18/24 14:12 Review of Systems Review of Systems: Yes all other systems are reviewed and are negative [facility] Past Medical History Medical History Other specified hypothyroidism Colon cancer screening Left sided abdominal pain Influenza A H1N1 infection Stool incontinence Shoulder pain Anemia Bronchitis due to COVID-19 virus COVID Acute pneumonia Work related injury Acute diarrhea Paresthesias in left hand Dysuria PFO (patent foramen ovale) Shortness of breath Community acquired pneumonia Hospital discharge follow-up Chronic idiopathic constipation Pre-op examination Encounter for routine gynecological examination LFT elevation Encounter for general adult medical examination with abnormal findings Respiratory tract congestion with cough Hospital discharge follow-up COVID-19 Tracheobronchitis COVID-19 Iron deficiency anemia Shoulder pain, right Nausea and vomiting PFO (patent foramen ovale) History of transesophageal echocardiography (LAN) Colitis Abnormal angiogram of head COVID-19 Asthma Thyroid disease GERD (gastroesophageal reflux disease) Anemia Aneurysm Surgical History History of surgery of uterus H/O endoscopy History of H/O brain surgery History of colonoscopy Family History Family History Father Diabetes Arthritis Diverticulitis Leukemia Mental health disorder Lung cancer Mother Anemia Arthritis Colon polyps Myocardial infarction Brother Crohn's disease Testicular cancer Brother Cancer Paternal Grandfather Leukemia Other Substance use disorder Social History Social History Household Members: Significant Other Housing: House Are you a primary account executive healthcare to a significant other at home: No Do you presently have visiting nurse or other home services: No Alcohol intake: former Patient Tobacco Use Status: Former Tobacco user Tobacco use type: Cigarette Cigarettes Per Day: 10 e-Cigarette/Vaping Use: Never Used Advance Directives Date on File: 04/09/21 service: No 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al status: employed 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: [employer]/ right hand dominant Cognitive needs: No Hearing needs: No Vision needs: Yes Physical Exam ED Vital Signs: Vital Signs - 24 hr 04/24/24 16:09 04/24/24 18:07 04/24/24 18:07 Temperature 97.8 F 97.8 F Pulse Rate 84 69 69 Respiratory Rate 18 18 18 Blood Pressure 142/79 H 144/84 H 144/84 H Pulse Oximetry 97 97 97 Oxygen Delivery Method Room Air Room Air 04/24/24 20:45 04/24/24 21:36 Temperature 98.7 F 98.7 F Pulse Rate 72 72 Respiratory Rate 16 16 Blood Pressure 134/75 134/75 Pulse Oximetry 97 97 Oxygen Delivery Method Room Air Room Air BMI result Body Mass Index 35.6 Appearance: Alert. Oriented X3. No acute distress. Eyes: PERRLA, No Nystagmus normal fundus normal visual chen ENT: Pharynx normal. Oral Mucosa moist Neck: Normal inspection. Neck supple. CVS: Normal heart rate and rhythm. Pulses normal. Respiratory: No respiratory distress. Equal air entry bilateral, no wheezing/rales/rhonchi Abdomen: Soft and nontender. Bowel sounds are present, no mass palpable, no CVA tenderness Skin: Skin warm and dry. Normal skin color. Normal skin turgor. Extremities: No lower extremity edema. No calf tenderness Neuro: Oriented X 3. No motor deficit. No sensory deficit.No cerebellar signs , cranial nerves II-XII intact Course Course Course Narrative: This is a Rapid Medical Examination (RME) performed by Kaylin Astudillo PA-C in triage. Full HPI, ROS, assessment and treatment plan per primary provider in the Main ED. 54 yo female hx of panic disorder, PTSD, MDD, BPD, and hypothyroidism here for evaluation of brain fog , dizziness, mixing up the numbers on her keyboard, headache, neck pain, right shoulder pain, and right hip pain s/p trip and fall while at work yesterday. reports tripping on a stool at work. denies LOC. no AC. does not believe she hit her head. she was able to immediately stand up and continue speaking with customers. + NIH 0- exam non focal. Plan: labs, ekg, imaging Medications Administered Discontinued Medications Generic Name Dose Route Start Last Admin Trade Name Freq PRN Reason Stop Dose Admin Cyclobenzaprine HCl 10 mg 04/24/24 20:54 04/24/24 21:06 Cyclobenzaprine Hcl 10 Mg Tablet PO 04/24/24 20:55 10 mg ONCE ONE Administration Oxycodone HCl 10 mg 12/29/24 20:54 04/24/24 21:06 Oxycodone Hcl Immed Release 5 Mg Tablet PO 04/24/24 20:55 10 mg ONCE ONE Administration Medical Decision Making Medical Decision Making [facility] Narrative: Patient with vague symptoms after minor head injury no signs of significant injury fundus is normal visual chen were normal head CT scan was done which is also negative will discharge patient home likely has a fibromyalgia/migraine Differential Diagnosis Differential Diagnoses: The differential diagnosis associated with the presentation includes Migraine/fibromyalgia/vitreous detachment/ Lab Data [facility] Lab Attestation statement: I reviewed the patient's lab results. 04/24/24 18:32 04/24/24 18:32 Labs: Lab Results 04/24/24 Range/Units 18:32 WBC 8.5 (4.8-10.8) X10*3/uL RBC 4.52 (4.20-5.50) X10*6/uL Hgb 12.2 (12.0-16.0) g/dl Hct 36.1 L (37.0-47.0) % MCV 79.9 L (80.0-98.0) fL MCH 27.0 (27.0-33.0) pg MCHC 33.8 (31.0-35.0) g/dl RDW 13.9 (11.0-16.0) % Plt Count 245 (160-400) X10*3/uL MPV 9.9 (9.4-12.3) fL Immature Gran % (Auto) 0.4 (0.0-0.4) % Neut % (Auto) 68.5 (45-73) % Lymph % (Auto) 23.7 (20-40) % [place] % (Auto) 5.2 (2-11) % Eos % (Auto) 1.7 (0-4) % Baso % (Auto) 0.5 (0-2) % Lymph # (Auto) 2.0 (1.2-4.9) X10*3/uL [place] # (Auto) 0.4 (0.1-1.2) X10*3/uL Eos # (Auto) 0.1 (0.0-0.4) X10*3/uL Baso # (Auto) 0.0 (0.0-0.2) X10*3/uL Abs Immat Gran (auto) 0.03 (0.00-0.03) X10*3/uL Absolute Neuts (auto) 5.8 (2.0-8.3) x10*3/uL Absolute Nucleated RBC 0.000 (0.0-0.012) X10*3/uL Nucleated RBC % (auto) 0.0 (0.0-0.2) /100WBC Sodium 134 L (135-145) mmol/L Potassium 3.6 (3.3-5.1) mmol/L Chloride 105 (96-108) mmol/L Carbon Dioxide 21 L (22-29) mmol/L Anion Gap 12 (12-20) BUN 8 L (9-16) mg/dL Creatinine 0.71 (0.5-1.4) mg/dL Estim Creat Clear Calc 105.6 Estimated GFR > 60 Random Glucose 95 (60-115) mg/dL Calcium 8.9 (8.4-10.2) mg/dL Magnesium 2.0 (1.6-2.6) mg/dL Total Bilirubin 0.1 (0.0-1.0) mg/dL AST 13 (5-31) U/L ALT 6 (0-31) U/L Alkaline Phosphatase 138 H (39-117) U/L Troponin I High Sens < 2.7 (<3.5-17.0) ng/L Total Protein 6.2 L (6.5-8.0) g/dL Albumin 3.8 (3.5-5.0) g/dL Urine Color Dark Yellow Urine Appearance Clear Urine pH 5.5 (5.0-9.0) Ur Specific [place] >= 1.030 H (1.005-1.025) Urine Protein Negative (Neg-Trace) mg/dL Urine Glucose (UA) Negative (Negative) mg/dL Urine Ketones Trace (Negative) mg/dL Urine Blood Negative (Negative) Urine Nitrite Negative (Negative) Ur Leukocyte Esterase Trace H (Negative) Urine RBC 3-5 H (0-2) /HPF Urine WBC 6-10 H (0-5) /HPF Ur Squamous Epith Cells 6-10 (0-2) /HPF Urine Bacteria 3+ (None Seen) Hyaline Casts 0-2 (0-2) /LPF Independent Interpretation I performed an independent interpretation of an: CT Scan Radiology Impression Discussion of test interpretation with radiology: I have reviewed the radiologist's reading. Radiologist Impression: [address] [address] [address] Scan Report Signed Patient: Berenice Shepard MR#: [id number] : 1970 Acct:[id number] Age/Sex: 54 / F ADM Date: 04/24/24 Loc: HO.ED Attending Dr: Ordering Physician: Krystyna Astudillo Date of Service: 04/24/24 Procedure(s): CT head/brain wo IV con Accession Number(s): [id number] cc: Thee Tay MD; Krystyna Astudillo~ Report Number: [id number]: Total DLP = 577.07 mGy-cm CLINICAL HISTORY: fall, head pressure CT head without contrast Comparison: 11/30/2022 Findings: No intra-axial mass, midline shift, hydrocephalus, or acute hemorrhage. No significant atrophy-like change or white matter disease. 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 The visualized paranasal sinuses and mastoid air cells are normal. The orbits are within normal limits. There is no acute fracture. IMPRESSION: No skull fracture or intracranial hemorrhage. This document has been electronically signed by: Iza Hope MD on 04/24/2024 18:00:00 Discharge Plan Discharge Clinical Impression: Fibromyalgia Cervical strain Qualifiers: Encounter type: subsequent encounter Qualified Code(s): S16.1XXD - Strain of muscle, fascia and tendon at neck level, subsequent encounter Patient Disposition: Home, Self-Care Instructions: Cervical Strain (ED), Fibromyalgia (ED) Additional Instructions: Take pain medication and muscle relaxant as prescribed Follow with your PCP Prescriptions: New oxycodone 5 mg tablet 5 mg PO Q6H PRN (Reason: pain) Qty: 20 0RF Rx Instructions: Partial Fill upon patient request. cyclobenzaprine 10 mg tablet 10 mg PO Q8H Qty: 20 0RF No Action fluticasone propionate [Flonase Allergy Relief] 50 mcg/actuation spray,suspension 2 spray intranasal BID 90 Days Qty: 16 3RF Rx Instructions: administer into each nostril bupropion HCl [Wellbutrin XL] 150 mg tablet extended release 24 hr 150 mg PO QAM Qty: 30 2RF Dupixent Pen 300 mg/2 mL pen injector 300 mg subcut Q2W 28 Days Qty: 4 12RF Rx Instructions: Initial dose 600 mg, then 300 mg every 2 weeks subcutaneously lorazepam 0.5 mg tablet 0.5 mg PO BID PRN (Reason: anxiety) 15 Days Qty: 30 0RF ipratropium-albuterol 0.5 mg-3 mg(2.5 mg base)/3 mL solution for nebulization 3 ml inhalation Q4-6H PRN (Reason: wheezing) 30 Days Qty: 270 6RF albuterol sulfate [Ventolin HFA] 90 mcg/actuation HFA aerosol inhaler 2 puff inhalation Q4H Qty: 18 0RF levothyroxine 150 mcg tablet 150 mcg PO QAM 90 Days Qty: 90 0RF loratadine 10 mg tablet 10 mg PO DAILY 30 Days Qty: 30 6RF montelukast 10 mg tablet 10 mg PO DAILY Qty: 90 0RF bisacodyl [Dulcolax (bisacodyl)] 5 mg tablet,delayed release (DR/EC) 10 mg PO BEDTIME 30 Days Qty: 60 3RF dexlansoprazole [Dexilant] 60 mg capsule,biphase delayed releas 60 mg PO DAILY Qty: 90 0RF simethicone 180 mg capsule 180 mg PO QID 30 Days Qty: 120 6RF Rx Instructions: after meals lidocaine [Lidoderm] 5 % adhesive patch,medicated 1 patch topical DAILY Qty: 15 0RF Rx Instructions: leave on most painful area for up to 12 hrs epinephrine 0.3 mg/0.3 mL auto-injector 0.3 mg IM Q10M PRN (Reason: anaphylaxis) Qty: 2 0RF Rx Instructions: for 2 doses lorazepam [Ativan] 0.5 mg tablet 0.5 mg PO BID PRN (Reason: anxiety) Qty: 5 0RF oxcarbazepine 150 mg tablet 150 mg PO BID Qty: 6 0RF fluticasone propion-salmeterol [Advair Diskus] 500-50 mcg/dose blister with device 1 ea inhalation BID oxcarbazepine [Trileptal] 150 mg tablet 150 mg PO BID Qty: 60 2RF azithromycin 250 mg tablet See Rx Instructions PO .COMPLEX Qty: 6 0RF Rx Instructions: For 250 mg dose pack: take 500 mg today (day 1), then 250 mg for 4 days (days 2-5) PO prednisone 20 mg tablet 40 mg PO DAILY Qty: 10 0RF Stand Alone Forms: Work/School Release Interventions: ED Discharge Assessment Last Done: 04/24/24 21:36 Discharge Date/Time: 04/24/24 21:37 Print Language: Arabic
--- NOTE | 2024-04-24 16:16 | ECG_ITS ---
Test Reason : PAIN Blood Pressure : / mmHG Vent. Rate : 082 BPM Atrial Rate : 082 BPM P-R Int : 164 ms QRS Dur : 088 ms QT Int : 356 ms P-R-T Axes : 021 -10 017 degrees QTc Int : 415 ms Normal sinus rhythm Cannot rule out Anterior infarct (cited on or before 06-NOV-2023) Abnormal ECG When compared with ECG of 21-FEB-2024 14:29, Nonspecific T wave abnormality no longer evident in Anterior leads Referred By: Krystyna Astudillo Electronically Signed By:JEFFERY NASH MD
[2024-04-24 18:07] VITALS: BP 144/84; PULSE 69; RESP 18; TEMP 36.6; O2SAT 97
--- NOTE | 2024-04-24 18:16 | PC.NURSE ---
Pt comes to ED today c/o pain the R posterior head, R neck radiating down to R shoulder and lower back s/p fall at work yesterday. Pt states while at work on 04/23/24, she tripped over a stool and fell backwards. She is unsure if she hit her head but denies LOC. Pt reports she continued to work for 2 additional hours after her fall. She reports since her fall she has had confusion, dizziness, extreme fatigue, visual changes, and difficulty with numbers (counting.) Pt is oriented to person, place, month, and year--Pt struggles with day of week. VSS Skin is warm and dry Breaths and speech are unlabored. Facial symmetry noted. Pt is able to ambulate to bathroom with requiring assistance.
[2024-04-24 18:39] LABS: MANUAL DIFF FLAG NO
[2024-04-24 18:41] LABS: Basophils Percent Auto 0.5 % (0-2); Eosinophils Absolute Auto 0.1 X10*3/uL (0.0-0.4); Eosinophils Percent Auto 1.7 % (0-4); Hematocrit 36.1 % (37.0-47.0); Hemoglobin 12.2 g/dl (12.0-16.0); Imm Gran Abs Auto 0.03 X10*3/uL (0.00-0.03); Imm Gran Pct Auto 0.4 % (0.0-0.4); Lymphocytes Percent Auto 23.7 % (20-40); Mean Corpuscular HGB Conc 33.8 g/dl (31.0-35.0); Mean Corpuscular Volume 79.9 fL (80.0-98.0); Mean Platelet Volume 9.9 fL (9.4-12.3); Monocytes Absolute Auto 0.4 X10*3/uL (0.1-1.2); Monocytes Percent Auto 5.2 % (2-11); Neutrophils Absolute Auto 5.8 x10*3/uL (2.0-8.3); Neutrophils Percent Auto 68.5 % (45-73); Platelet Count 245 X10*3/uL (160-400); Red Blood Count 4.52 X10*6/uL (4.20-5.50); Red Cell Distribution Width 13.9 % (11.0-16.0); White Blood Count 8.5 X10*3/uL (4.8-10.8)
[2024-04-24 18:42] LABS: Appearance Urine Clear; Color Urine Dark Yellow; Glucose Urine UA Negative (Negative); Leukocyte Esterase Urine Trace (Negative); Nitrite Urine Negative (Negative); PH 5.5 (5.0-9.0); Specific Gravity - Urine >= 1.030 (1.005-1.025); UMIC TRIGGER UACC YES; Urine Blood Negative (Negative); Urine Ketones Trace mg/dL (Negative); Urine Protein Negative (Neg-Trace)
[2024-04-24 18:57] LABS: Alanine Aminotransferase 6 U/L (0-31); Albumin Level 3.8 g/dL (3.5-5.0); Alkaline Phosphatase 138 U/L (39-117); Anion Gap 12 (12-20); Aspartate Amino Transferase 13 U/L (5-31); Bacteria Urine 3+ (None Seen); Bilirubin Total 0.1 mg/dL (0.0-1.0); Blood Urea Nitrogen 8 mg/dL (9-16); Calcium 8.9 mg/dL (8.4-10.2); Carbon Dioxide 21 mmol/L (22-29); Chloride 105 mmol/L (96-108); Creatinine Clr Calc Pharmacy 105.6; Estimated Glomerular Filt Rate > 60; Glucose Random 95 mg/dL (60-115); Hyaline Casts Urine 0-2 /LPF (0-2); Potassium 3.6 mmol/L (3.3-5.1); Sodium 134 mmol/L (135-145); Total Protein 6.2 g/dL (6.5-8.0); UACC Culture Trigger YES
[2024-04-24 19:05] LABS: Troponin-I High Sensitivity < 2.7 ng/L (<3.5-17.0)
[2024-04-24 20:45] VITALS: BP 134/75; PULSE 72; RESP 16; TEMP 37.1; O2SAT 97
[2024-04-24] MEDS: Cyclobenzaprine HCl 10 MG TABLET PO (21:06)
[2024-04-24] MEDS: oxyCODONE HCl Immed Release 5 MG TABLET 10 MG PO (21:06)
[2024-04-24 21:36] VITALS: BP 134/75; PULSE 72; RESP 16; TEMP 37.1; O2SAT 97
== END 2024-04-24 21:37 | disposition home or self-care (01) ==
PROVIDERS: Physician Assistant Medical; Emergency Provider Internal Medicine; PCP Internal Medicine
DX: S13.4XXA Sprain of ligaments of cervical spine, initial encounter (principal); S39.92XA Unspecified injury of lower back, initial encounter; M79.7 Fibromyalgia; R07.89 Other chest pain; R94.31 Abnormal electrocardiogram [ECG] [EKG]; M25.551 Pain in right hip; R51.9 Headache, unspecified; M54.2 Cervicalgia; M25.511 Pain in right shoulder; W01.190A Fall on same level from slipping, tripping and stumbling with subsequent striking against furniture, initial encounter; Y93.89 Activity, other specified; Y92.89 Other specified places as the place of occurrence of the external cause; Y99.0 Civilian activity done for income or pay; Z79.899 Other long term (current) drug therapy
CPT/HCPCS: 36415; 70450; 71250; 72125; 73030; 73502; 80053; 81001; 83735; 84484; 85025; 87086; 93005; 99284; 99285

== ENCOUNTER → 2024-04-24 16:16 | Outpatient (BNV) | payer OTHER, SELFPAY | PROVIDERS: PCP Internal Medicine; Visit Provider Radiology Diagnostic Radiology | DX: J18.9 Pneumonia, unspecified organism (principal); M54.2 Cervicalgia; R51.9 Headache, unspecified; M25.551 Pain in right hip; M25.511 Pain in right shoulder | CPT/HCPCS: 70450; 71250; 72125; 73030; 73502 ==

== ENCOUNTER → 2024-04-24 16:16 | Outpatient (BNV) | payer OTHER, SELFPAY | PROVIDERS: Emergency Provider Internal Medicine; PCP Internal Medicine; Visit Provider Internal Medicine Cardiovascular Disease | DX: R94.31 Abnormal electrocardiogram [ECG] [EKG] (principal) | CPT/HCPCS: 93010 ==

== ENCOUNTER 2024-05-13 12:52 | Outpatient (AMB) | payer OTHER, SELFPAY ==
--- NOTE | 2024-05-13 12:58 | MHC.PC.OV ---
Vital Signs 05/13/24 13:00 Height 5 ft 5 in Weight 215 lb BMI 35.8 BP 130/80 Blood Pressure Location Rt brachial Position Sitting Pulse 78 Pulse Source Pulse Oximeter Pulse Oximetry (%) 97 Oxygen Delivery Method Room Air Intake Visit Reasons: ed/fall Allergies niacin [Niaspan Extended-Release] Allergy (Intermediate, Verified 05/13/24 12:59) skin blisters tramadol Allergy (Intermediate, Verified 05/13/24 12:59) seizures barley [BARLEY] Allergy (Unknown, Verified 05/13/24 12:59) UNKNOWN fluticasone [Advair Diskus] Allergy (Unknown, Verified 05/13/24 12:59) Shortness of Breath ibuprofen Allergy (Unknown, Verified 05/13/24 12:59) Swelling naratriptan Allergy (Unknown, Verified 05/13/24 12:59) unknown Penicillins [PENICILLINS] Allergy (Unknown, Verified 05/13/24 12:59) Unknown sumatriptan Allergy (Unknown, Verified 05/13/24 12:59) unknown trazodone [TRAZODONE] Allergy (Unknown, Verified 05/13/24 12:59) UNKNOWN omalizumab [From Xolair] Adverse Reaction (Severe, Verified 05/13/24 12:59) Anaphylaxis rubber, unspecified Adverse Reaction (Severe, Verified 05/13/24 12:59) Unknown equate cough drops sugar free Allergy (Mild, Uncoded 05/13/24 12:59) Unknown silicone Adverse Reaction (Severe, Uncoded 05/13/24 12:59) Unknown vaseline Adverse Reaction (Severe, Uncoded 05/13/24 12:59) hives Medication List - Last Reconciled 05/13/24 by Thee Tay MD bisacodyl (Dulcolax (bisacodyl)) 10 mg (2 x 5 mg) PO BEDTIME 30 days bupropion HCl XL (Wellbutrin XL) 150 mg PO QAM cyclobenzaprine 10 mg PO Q8H dexlansoprazole (Dexilant) 60 mg PO DAILY dupilumab (Dupixent) 300 mg (2 mL) subcut Q2W 28 days epinephrine 0.3 mg (0.3 mL) IM Q10M PRN fluticasone propion-salmeterol 500-50 mcg/dose (Advair Diskus) 1 ea inhalation BID fluticasone propionate 50 mcg/actuation (Flonase Allergy Relief) 2 sprays intranasal BID 90 days ipratropium-albuterol 0.5 mg-3 mg(2.5 mg base)/3 mL 3 mL inhalation Q4-6H PRN 30 days levothyroxine 150 mcg PO QAM 90 days lidocaine 5% (Lidoderm) 1 patch topical DAILY loratadine 10 mg PO DAILY 30 days lorazepam (Ativan) 0.5 mg PO BID PRN montelukast 10 mg PO DAILY oxcarbazepine 150 mg PO BID simethicone 180 mg PO QID 30 days Ventolin HFA 90 mcg/actuation (albuterol sulfate) 2 puffs inhalation Q4H NS Tobacco use date assessed: 05/13/24 Dental Screening Dental Screen Date: 05/13/24 Did you have a dental visit in the last 12 months?: No Did you have a dental problem in the last 6 months where you did not have access to dental care?: No Was dental information given to patient?: No HPI ed/fall HPI Details Patient is a 54-year-old female presented for follow-up after visiting emergency room 04/24/2024 that was last month. Patient has a history of fibromyalgia, migraine headaches, multiple joint pain, PTSD, hypothyroidism, anxiety panic disorder She tripped over [email or web address] at work without any significant head injury, presented to emergency room a day after tripping, for evaluation, complaining of neck pain right shoulder pain right hip pain Neuro exam was within normal limit Neck was supple Hemoglobin 12.[address] scan of head did not show any acute findings After evaluation patient was discharged with a 20 tablets of oxycodone and 20 tablets of cyclobenzaprine Her other medications are Flonase for nasal congestion Wellbutrin for depression Dupixent for resistant asthma Lorazepam 0.5 mg for anxiety as needed Levothyroxine 150 mcg for hypothyroidism Loratadine and montelukast for allergies Laxatives Dexilant Oxcarbazepine 150 mg b.i.d. Advair Trileptal Patient is established with internal controls specialist And psychiatrist [facility] Delivery She works in [employer] Continued to have whole-body soreness multiple joint pains I have placed a referral to rheumatology for evaluation Brain fog can be caused by medications that she is on Notably lorazepam and clonidine that he she is getting from psychiatrist Tells me that oxycodone and cyclobenzaprine did help However since patient is already at risk for fall and have chronic vertigo and is having brain fog I do not want to prescribe those medications to worsened the problem Patient Instructions - Consider consultation with a gear shaper for fibromyalgia management. - Avoid the use of medications that cause dizziness or drowsiness during work hours to reduce the risk of falls. Talk to psychiatrist and try to get off those medications PFSH Medical History Other specified hypothyroidism Colon cancer screening Left sided abdominal pain Influenza A H1N1 infection Stool incontinence Shoulder pain Anemia Bronchitis due to COVID-19 virus COVID Acute pneumonia Work related injury Acute diarrhea Paresthesias in left hand Dysuria PFO (patent foramen ovale) Shortness of breath Community acquired pneumonia Hospital discharge follow-up Chronic idiopathic constipation Pre-op examination Encounter for routine gynecological examination LFT elevation Encounter for general adult medical examination with abnormal findings Respiratory tract congestion with cough Hospital discharge follow-up COVID-19 Tracheobronchitis COVID-19 Iron deficiency anemia Shoulder pain, right Nausea and vomiting PFO (patent foramen ovale) History of transesophageal echocardiography (LAN) Colitis Abnormal angiogram of head COVID-19 Asthma Thyroid disease GERD (gastroesophageal reflux disease) Anemia Aneurysm Surgical History History of surgery of uterus H/O endoscopy History of H/O brain surgery History of colonoscopy Family History Father Diabetes Arthritis Diverticulitis Leukemia Mental health disorder Lung cancer Mother Anemia Arthritis Colon polyps Myocardial infarction Brother Crohn's disease Testicular cancer Brother Cancer Paternal Grandfather Leukemia Other Substance use disorder Social History Household Members: Significant Other Housing: House Are you a primary healthcare network consultant to a significant other at home: No Do you presently have visiting nurse or other home services: No Alcohol intake: former Patient Tobacco Use Status: Former Tobacco user Tobacco use type: Cigarette Cigarettes Per Day: 10 e-Cigarette/Vaping Use: Never Used Advance Directives Date on File: 04/09/21 service: No 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al status: employed 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: [employer]/ right hand dominant Cognitive needs: No Hearing needs: No Vision needs: Yes Questionnaire Thrive Questionnaire Date Thrive assessed: 05/13/24 I am a: Patient What is your living situation today?: I have a steady place to live Within the past 12 months, did the food you bought not last and you didn't have the money to get more?: Sometimes True Within the past 12 months, did you worry whether your food would run out before you got money to buy more?: Sometimes True Do you have trouble paying for medicines?: No Do you have trouble getting transportation to medical appointments?: No Do you have trouble paying your heating and electricity bill?: No Do you have trouble taking care of your child, family member or friend?: No Do you have trouble with day-to-day activities such as bathing, preparing meals, shopping, managing finances, etc.?: No Are you currently unemployed and looking for a job?: No Are you interested in more education?: No Please select the resources that you would like help with: None Currently or been in a relationship where the following occur: No concerns reported THRIVE Score: 2 AUDIT C Alcohol Use Questionnaire (AUDIT-C) 3. How often do you have six or more drinks on one occasion?: Never Total Score: 0 MARKO-7 AMB Questionnaire MARKO-7 Date MARKO - 7 assessed: 11/11/23 Source: Developed by Drs. Masood Arredondo, Lesly Pruitt, Thor Del Cid and colleagues, with an educational hpil from [employer]. Review of Systems Const Denies chills and Denies fever(s) ENT Denies epistaxis and Denies nasal discharge Card Denies chest pain Resp Denies chest congestion, Denies cough and Denies hemoptysis GI Denies diarrhea and Denies nausea Skin/Breast Denies rash Neuro Reports no additional complaints Psych Reports no additional complaints Endo Reports no additional complaints Physical exam (Primary Care) Vital Signs: Last Vital Signs Pulse 78 05/13/24 13:00 BP 130/80 05/13/24 13:00 Pulse Ox 97 05/13/24 13:00 Oxygen Delivery Method Room Air 05/13/24 13:00 BMI result Body Mass Index 35.8 Tobacco/Smoking Status: Tobacco use Status Tobacco use date assessed 06/27/24 10/25/24 10:40 Patient Tobacco Use Status Former Tobacco user 04/24/24 18:07 Tobacco use type Cigarette 02/19/24 10:40 e-Cigarette/Vaping Use Never Used 02/19/24 10:40 Thrive Assessment: Date of Thrive Assessment Date Thrive assessed 05/13/24 05/13/24 12:52 Currently or been in a relationship where the following occur: No concerns reported Const General: cooperative, comfortable and no acute distress Orientation/consciousness: patient oriented x3 HENMT Head: Yes normocephalic Eyes General: appearance normal, both eyes and all related structures Neck Neck: Yes supple Resp Effort & Inspection: normal respiratory effort, no cough and no stridor Cardio Rhythm: regular rhythm Heart sounds: S1 normal heart sound present and S2 normal heart sound present Skin General skin exam: turgor normal Neuro General: patient oriented x3, tone normal and moves all extremities Extrem Other: Chronically limited range of motion both shoulders Right lower extremity: no edema Left lower extremity: no edema Coding Level of Care Code Est Pt Level 4 (91636) Diagnoses Fall, initial encounter W19.XXXA Encounter type: initial encounter Muscle soreness M79.10 Multiple joint pain M25.50 Brain fog R41.89 Panic anxiety syndrome F41.0 Other specified hypothyroidism E03.8 Chronic vertigo R42 Assessment & Plan Assessment & Plan (1) Fall: Code(s): W19.XXXA - Unspecified fall, initial encounter Category: Medical Qualifiers: Encounter type: initial encounter Qualified Code(s): W19.XXXA - Unspecified fall, initial encounter (2) Muscle soreness: Code(s): M79.10 - Myalgia, unspecified site Category: Medical (3) Multiple joint pain: Code(s): M25.50 - Pain in unspecified joint Category: Medical (4) Brain fog: Code(s): R41.89 - Other symptoms and signs involving cognitive functions and awareness Category: Medical (5) Panic anxiety syndrome: Code(s): F41.0 - Panic disorder [episodic paroxysmal anxiety] Category: Medical (6) Other specified hypothyroidism: Code(s): E03.8 - Other specified hypothyroidism Category: Medical (7) Chronic vertigo: Code(s): R42 - Dizziness and giddiness Category: Medical Plan Patient is a 54-year-old female presented for follow-up after visiting emergency room 04/24/2024 that was last month. Patient has a history of fibromyalgia, migraine headaches, multiple joint pain, PTSD, hypothyroidism, anxiety panic disorder She tripped over how stool at work without any significant head injury, presented to emergency room a day after tripping, for evaluation, complaining of neck pain right shoulder pain right hip pain Neuro exam was within normal limit Neck was supple Hemoglobin 12.[address] scan of head did not show any acute findings After evaluation patient was discharged with a 20 tablets of oxycodone and 20 tablets of cyclobenzaprine Her other medications are Flonase for nasal congestion Wellbutrin for depression Dupixent for resistant asthma Lorazepam 0.5 mg for anxiety as needed Levothyroxine 150 mcg for hypothyroidism Loratadine and montelukast for allergies Laxatives Dexilant Oxcarbazepine 150 mg b.i.d. Advair Trileptal Patient is established with internal controls specialist And psychiatrist [facility] Chief Delivery She works in [employer] Continued to have whole-body soreness multiple joint pains I have placed a referral to rheumatology for evaluation Brain fog can be caused by medications that she is on Notably lorazepam and clonidine that he she is getting from psychiatrist Tells me that oxycodone and cyclobenzaprine did help However since patient is already at risk for fall and have chronic vertigo and is having brain fog I do not want to prescribe those medications to worsened the problem Patient Instructions - Consider consultation with a gear shaper for fibromyalgia management. - Avoid the use of medications that cause dizziness or drowsiness during work hours to reduce the risk of falls. Talk to psychiatrist and try to get off those medications Orders: Referrals Rheumatology Referral M25.50 - Pain in unspecified joint, M79.10 - Myalgia, unspecified site
[2024-05-13 13:00] VITALS: BP 130/80; PULSE 78; O2SAT 97; BMI 35.8
== END 2024-05-13 13:18 | disposition home or self-care (01) ==
PROVIDERS: PCP Internal Medicine; Visit Provider Internal Medicine
DX: M25.50 Pain in unspecified joint (principal); W19.XXXA Unspecified fall, initial encounter; M79.10 Myalgia, unspecified site; R41.89 Other symptoms and signs involving cognitive functions and awareness; F41.0 Panic disorder [episodic paroxysmal anxiety]; E03.8 Other specified hypothyroidism; R42 Dizziness and giddiness

== ENCOUNTER → 2024-05-13 12:52 | Outpatient (BNVA) | payer OTHER, SELFPAY | PROVIDERS: PCP Internal Medicine; Visit Provider Internal Medicine | DX: M79.10 Myalgia, unspecified site (principal); M25.50 Pain in unspecified joint; R41.89 Other symptoms and signs involving cognitive functions and awareness; F41.0 Panic disorder [episodic paroxysmal anxiety]; E03.8 Other specified hypothyroidism; Z91.81 History of falling | CPT/HCPCS: 99212 ==

== ENCOUNTER 2024-05-29 13:08 | Observation (INO) | payer OTHER, SELFPAY ==
--- NOTE | ~2024-05-29 | MR_ITS ---
EXAMINATION: MR BRAIN WITHOUT CONTRAST CLINICAL INFORMATION: Left-sided deficits, now resolved,? TIA. COMPARISON: No prior MRI. Numerous prior head CTs. TECHNIQUE: MRI of the brain was obtained using routine sequences without contrast. FINDINGS: There is no diffusion restriction. There is no intracranial hemorrhage, acute infarction, mass effect, or edema. Ventricles, sulci, and cisterns are normal in size and configuration for patient age. No shift of midline. No abnormal hemosiderin deposition is identified. There are a few scattered punctate and minimally confluent foci of white matter T2 hyperintensity in the periventricular, subcortical, and hemispheric deep white matter, nonspecific, but most likely on the basis of small vessel ischemic changes. Midline structures appear normally formed. The pituitary gland appears normal. Posterior fossa structures appear normal. Cerebellar tonsils are appropriately located. Major flow voids are preserved within the skull base. The globes and orbital contents demonstrate no abnormalities. Paranasal sinuses are clear bilaterally. Nasal septum is midline without spur. The mastoids and tympanic cavities are normally aerated. Extracranial soft tissues demonstrate complete atrophy of the right parotid gland. There are tiny retention cysts in the posterior nasopharynx/adenoids. No suspicious bone marrow changes are evident. Atlantoaxial joint is normal. MR/MR head/brain wo con IMPRESSION: 1. No evidence of intracranial hemorrhage, acute infarction, mass effect, or edema. 2. Scattered T2 hyperintense white matter foci, in keeping with mild small vessel ischemic changes. 3. Complete atrophy of the right parotid gland. Electronically signed by: Noam Early MD 05/30/2024 02:05 PM [facility]
--- NOTE | ~2024-05-29 | CT_ITS ---
CLINICAL HISTORY: Stroke Protocol L sided facial droop CTA HEAD WITH CONTRAST, 3D POSTPROCESSING CTA NECK WITH CONTRAST, WITH 3D POSTPROCESSING Comparison: CT/SR - CT HEAD FOR STROKE - 05/29/24 13:15 EST Findings: Aortic arch: Patent branch origins. Common origin for the right brachiocephalic and left common carotid arteries is a normal variant. Vertebral arteries: No occlusion or dissection. Extracranial carotid arteries: No occlusion, significant stenosis, aneurysm or dissection. Intracranial carotid arteries: Aneurysm coil at or near the the junction of the left cavernous and supraclinoid segments. No occlusion. Vertebrobasilar system: Patent. Cerebellar arteries: Patent. Posterior cerebral arteries: Patent. No occlusion or aneurysm. Anterior cerebral arteries: Patent. No occlusion or aneurysm. Middle cerebral arteries: Patent. No occlusion or aneurysm. No enhancing mass lesion. Dural venous sinuses are patent. No enhancing cervical mass or fluid collection. Thyroid gland appears markedly atrophic. No acute abnormalities in the included lungs. No acute osseous abnormalities. Impression: 1. Patent head and neck CTA. No large vessel occlusion or flow-limiting stenosis. 2. No aneurysm identified. This document has been electronically signed by: Annamarie Henderson DO on 05/29/2024 14:38:34
--- NOTE | ~2024-05-29 | CT_ITS ---
CLINICAL HISTORY: Stroke Protocol L sided facial droop CT HEAD WITHOUT CONTRAST Comparison: CT/SR - CT HEAD/BRAIN WO IV CON - 04/24/24 16:27 EST Findings: Again seen is significant streak artifact from a left parasellar aneurysm clip. No acute intracranial hemorrhage, extra-axial fluid collection, hydrocephalus or midline shift. No significant atrophy-like change or white matter disease. No evidence for acute large territorial infarct where visualized. There is no sinus or mastoid fluid. The orbits are within normal limits. There is no acute fracture. IMPRESSION: No acute intracranial process. This document has been electronically signed by: Annamarie Henderson DO on 05/29/2024 13:33:26
--- NOTE | 2024-05-29 13:05 | ED_ITS ---
HPI - General Adult General Chief complaint: Stroke Stated complaint: L FACIAL DROOP Source: patient Mode of arrival: ambulatory Limitations: other (vague historian ) History of Present Illness ED Provider: DAVID Rasheed HPI narrative: This is a 54-year-old female past medical history significant for hypertension, PTSD, depression, anemia, CVA, GERD, hypothyroidism, brain aneurysm status post coiling in 2001 at [facility] presenting to the emergency department with sudden-onset headache that started at 10 or 11:00 patient unclear lasted about an hour, subsided followed by difficulty with word finding, slurred speech, left upper and lower extremity weakness. She reports this started after she was eating breakfast. She is not on blood thinners. She was feeling fine prior to this. To be clear LKWT unclear On arrival NIH stroke scale is 6. Related Data Home Medications ?Medication ?Instructions ?Recorded ?Confirmed fluticasone 500 mcg-salmeterol 50 1 ea inhalation BID 11/19/23 05/13/24 mcg/dose blistr powdr for inhalation (Advair Diskus) Previous Rx's ?Medication ?Instructions ?Recorded lidocaine 5 % topical patch 1 patch topical DAILY #15 ea 04/11/23 (Lidoderm) fluticasone propionate 50 2 spray intranasal BID 90 days #16 10/06/23 mcg/actuation nasal grams spray,suspension (Flonase Allergy Relief) epinephrine 0.3 mg/0.3 mL 0.3 mg (0.3 mL) IM Q10M PRN 10/16/23 injection, auto-injector anaphylaxis #2 ea bupropion HCl 150 mg 24 hr tablet, 150 mg PO QAM #30 tabs 12/22/23 extended release (Wellbutrin XL) dupilumab 300 mg/2 mL subcutaneous 300 mg (2 mL) subcut Q2W 28 days 12/30/23 pen injector (Dupixent) #4 mL lorazepam 0.5 mg tablet (Ativan) 0.5 mg PO BID PRN anxiety #5 tabs 02/21/24 oxcarbazepine 150 mg tablet 150 mg PO BID #6 tabs 02/21/24 ipratropium 0.5 mg-albuterol 3 mg 3 ml inhalation Q4-6H PRN wheezing 02/24/24 (2.5 mg base)/3 mL nebulization 30 days #270 mL soln loratadine 10 mg tablet 10 mg PO DAILY 30 days #30 tabs 02/26/24 montelukast 10 mg tablet 10 mg PO DAILY #90 tabs 02/26/24 bisacodyl 5 mg tablet,delayed 10 mg (2 x 5 mg) PO BEDTIME 30 04/18/24 release (Dulcolax (bisacodyl)) days #60 tabs dexlansoprazole 60 mg 60 mg PO DAILY #90 caps 04/18/24 capsule,biphase delayed release (Dexilant) simethicone 180 mg capsule 180 mg PO QID 30 days #120 caps 04/18/24 cyclobenzaprine 10 mg tablet 10 mg PO Q8H #20 tabs 04/24/24 Ventolin HFA 90 mcg/actuation 2 puff inhalation Q4H #18 grams 05/19/24 aerosol inhaler (albuterol sulfate) levothyroxine 150 mcg tablet 150 mcg PO QAM 90 days #90 tabs 05/23/24 Allergies Allergy/AdvReac Type Severity Reaction Status Date / Time niacin Allergy Intermediate skin Verified 05/29/24 13:27 [Niaspan Extended-Release] blisters tramadol Allergy Intermediate seizures Verified 05/29/24 13:27 barley [BARLEY] Allergy Unknown UNKNOWN Verified 05/29/24 13:27 fluticasone [Advair Diskus] Allergy Unknown Shortness Verified 05/29/24 13:27 of Breath ibuprofen Allergy Unknown Swelling Verified 05/29/24 13:27 naratriptan Allergy Unknown unknown Verified 05/29/24 13:27 Penicillins [PENICILLINS] Allergy Unknown Unknown Verified 05/29/24 13:27 sumatriptan Allergy Unknown unknown Verified 05/29/24 13:27 trazodone [TRAZODONE] Allergy Unknown UNKNOWN Verified 05/29/24 13:27 omalizumab [From Xolair] AdvReac Severe Anaphylaxis Verified 05/29/24 13:27 rubber, unspecified AdvReac Severe Unknown Verified 05/29/24 13:27 equate cough drops sugar free Allergy Mild Unknown Uncoded 05/13/24 12:59 silicone AdvReac Severe Unknown Uncoded 05/13/24 12:59 vaseline AdvReac Severe hives Uncoded 05/13/24 12:59 Review of Systems 2 Review of Systems: Yes all other systems are reviewed and are negative PMFSH Past Medical History Attestation statement: The following information was validated with the patient. Source: old records reviewed and nursing notes reviewed Medical History Other specified hypothyroidism Colon cancer screening Left sided abdominal pain Influenza A H1N1 infection Stool incontinence Shoulder pain Anemia Bronchitis due to COVID-19 virus COVID Acute pneumonia Work related injury Acute diarrhea Paresthesias in left hand Dysuria PFO (patent foramen ovale) Shortness of breath Community acquired pneumonia Hospital discharge follow-up Chronic idiopathic constipation Pre-op examination Encounter for routine gynecological examination LFT elevation Encounter for general adult medical examination with abnormal findings Respiratory tract congestion with cough Hospital discharge follow-up COVID-19 Tracheobronchitis COVID-19 Iron deficiency anemia Shoulder pain, right Nausea and vomiting PFO (patent foramen ovale) History of transesophageal echocardiography (LAN) Colitis Abnormal angiogram of head COVID-19 Asthma Thyroid disease GERD (gastroesophageal reflux disease) Anemia Aneurysm Surgical History History of surgery of uterus H/O endoscopy History of H/O brain surgery History of colonoscopy Family History Family History Father Diabetes Arthritis Diverticulitis Leukemia Mental health disorder Lung cancer Mother Anemia Arthritis Colon polyps Myocardial infarction Brother Crohn's disease Testicular cancer Brother Cancer Paternal Grandfather Leukemia Other Substance use disorder Social History Social History Household Members: Significant Other Housing: House Are you a primary intensive care ambulance paramedic to a significant other at home: No Do you presently have visiting nurse or other home services: No Alcohol intake: former Patient Tobacco Use Status: Former Tobacco user Tobacco use type: Cigarette Cigarettes Per Day: 10 Smoked in Last 30 Days: No e-Cigarette/Vaping Use: Never Used Use of substances other than those prescribed or required for medical reasons: No Advance Directives: Yes Advance Directives on File: Yes Advance Directives Date on File: 04/09/21 Patient : No service: No 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al status: employed 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: [employer]/ right hand dominant Cognitive needs: No Hearing needs: No Vision needs: Yes Physical Exam ED Vital Signs: Vital Signs - 24 hr 05/29/24 13:48 Temperature 97.7 F Pulse Rate 87 Respiratory Rate 18 Blood Pressure 155/94 H Pulse Oximetry 96 Oxygen Delivery Method Room Air BMI result Body Mass Index 33.7 Vital signs stable Appearance: Alert.? Oriented X3.? No acute distress.?+ patient noted to have some slurred speech and difficulty with word finding on exam. Head: Normocephalic, atraumatic, no step-offs or deformities + asymmetric smile with slight left-sided facial droop. Eyes: Pupils equal, round and reactive to light.? ENT: Pharynx normal.? Neck: Normal inspection.? Neck supple.? CVS: Normal heart rate and rhythm.? Pulses normal.? Respiratory: No respiratory distress.? Breath sounds normal.? Abdomen: Soft and nontender.? Skin: Skin warm and dry.? Normal skin color.? Normal skin turgor.? Extremities: No lower extremity edema.? No calf ttp. 3/5 strength to left upper and left lower extremity, 5/5 strength to right upper and right lower extremity. Back: No midline tenderness, no C-spine tenderness, full range of motion, no CVA tenderness bilaterally Neuro: Oriented X 3.? No motor deficit.? No sensory deficit. CN 2-12 intact Course Reevaluation(s) Reevaluation #1: I did go in to re-evaluate patient and she has a NIH stroke scale of 1 at this time only having mild left-sided facial droop. No longer having left upper and lower extremity weakness or drift. She says she feels better. No headaches. Dry head CT negative Discuss this case with Dr. Tay neurology no indication for TNK. Could be a seizure versus TIA. Also, last known well time is unclear. Time: 13:44 Reevaluation #2: CBC no acute findings needing intervention. Chemistry unremarkable. Trope negative. Coags unremarkable CTA negative. Plan hospital admission Time: 14:43 Medications Administered Discontinued Medications Generic Name Dose Route Start Last Admin Trade Name Freq PRN Reason Stop Dose Admin Iohexol 70 ml 05/29/24 13:34 05/29/24 13:34 Iohexol 350 Mg/Ml 75 Ml Infus..Btl IV 05/29/24 13:35 70 ml ONCE ONE Administration Medical Decision Making Medical Decision Making [facility] Narrative: 1316 54-year-old female presents with left-sided weakness to upper and lower extremities, difficulty with word finding, slurred speech and headache which has since resolved. Last known well time 11:00 Physical exam significant for left-sided weakness, left-sided facial droop, difficulty with word finding and slurred speech. History and physical exam concerning for CVA versus TIA versus aneurysm rupture. Stroke protocol initiated immediately upon patient's arrival to the department Plan labs, imaging. NIH Stroke Scale/Score (NIHSS) from [place] on 05/29/2024 All calculations should be rechecked by clinician prior to use RESULT SUMMARY: 6 points NIH Stroke Scale INPUTS: 1A: Level of consciousness ?> 0 = Alert; keenly responsive 1B: Ask month and age ?> 0 = Both questions right 1C: 'Blink eyes' & 'squeeze hands' ?> 0 = Performs both tasks 2: Horizontal extraocular movements ?> 0 = Normal 3: Visual chen ?> 0 = No visual loss 4: Facial palsy ?> 1 = Minor paralysis (flat nasolabial fold, smile asymmetry) 5A: Left arm motor drift ?> 1 = Drift, but doesn't hit bed 5B: Right arm motor drift ?> 0 = No drift for 10 seconds 6A: Left leg motor drift ?> 2 = Drift, hits bed 6B: Right leg motor drift ?> 0 = No drift for 5 seconds 7: Limb Ataxia ?> 0 = No ataxia 8: Sensation ?> 0 = Normal; no sensory loss 9: Language/aphasia ?> 1 = Mild-moderate aphasia: some obvious changes, without significant limitation 10: Dysarthria ?> 1 = Mild-moderate dysarthria: slurring but can be understood 11: Extinction/inattention ?> 0 = No abnormality Lab Data 05/29/24 13:34 05/29/24 13:34 Labs: Lab Results 05/29/24 05/29/24 Range/Units 13:13 13:34 WBC 6.1 (4.8-10.8) X10*3/uL RBC 4.46 (4.20-5.50) X10*6/uL Hgb 12.2 (12.0-16.0) g/dl Hct 36.1 L (37.0-47.0) % MCV 80.9 (80.0-98.0) fL MCH 27.4 (27.0-33.0) pg MCHC 33.8 (31.0-35.0) g/dl RDW 14.1 (11.0-16.0) % Plt Count 221 (160-400) X10*3/uL MPV 9.9 (9.4-12.3) fL Immature Gran % (Auto) 0.2 (0.0-0.4) % Neut % (Auto) 65.5 (45-73) % Lymph % (Auto) 23.7 (20-40) % Johnston % (Auto) 7.4 (2-11) % Eos % (Auto) 2.5 (0-4) % Baso % (Auto) 0.7 (0-2) % Lymph # (Auto) 1.5 (1.2-4.9) X10*3/uL Johnston # (Auto) 0.5 (0.1-1.2) X10*3/uL Eos # (Auto) 0.2 (0.0-0.4) X10*3/uL Baso # (Auto) 0.0 (0.0-0.2) X10*3/uL Abs Immat Gran (auto) 0.01 (0.00-0.03) X10*3/uL Absolute Neuts (auto) 4.0 (2.0-8.3) x10*3/uL Absolute Nucleated RBC 0.000 (0.0-0.012) X10*3/uL Nucleated RBC % (auto) 0.0 (0.0-0.2) /100WBC Hold Purple Top SEE NOTE PT 11.9 (10.9-12.4) SEC INR 1.0 (0.9-1.1) APTT 31.9 (26.0-36.8) SEC Sodium 138 (135-145) mmol/L Potassium 3.6 (3.3-5.1) mmol/L Chloride 110 H (96-108) mmol/L Carbon Dioxide 21 L (22-29) mmol/L Anion Gap 11 L (12-20) BUN 10 (9-16) mg/dL Creatinine 0.69 (0.5-1.4) mg/dL Estim Creat Clear Calc 109.2 Estimated GFR > 60 POC Glucose 126 H (60-115) mg/dL Random Glucose 98 (60-115) mg/dL Calcium 8.6 (8.4-10.2) mg/dL Troponin I High Sens < 2.7 (<3.5-17.0) ng/L Triglycerides 91 (<150) mg/dL Cholesterol 157 (<200) mg/dL LDL Cholesterol, Calc 98 (<100) mg/dL HDL Cholesterol 41 (>40) mg/dL Critical Care Time Critical Care Time Critical Care Time: Yes Total Critical Care Time: 35 Attestation: I attest to this time spent taking care of the patient, obtaining history, physical, reviewing labs, imaging, treatment of patients condition +/- specialist/hospitalist consult Discharge Plan Discharge Clinical Impression: Brain TIA Patient Disposition: Still a Patient Prescriptions: No Action fluticasone propionate [Flonase Allergy Relief] 50 mcg/actuation spray,suspension 2 spray intranasal BID 90 Days Qty: 16 3RF Rx Instructions: administer into each nostril bupropion HCl [Wellbutrin XL] 150 mg tablet extended release 24 hr 150 mg PO QAM Qty: 30 2RF Dupixent Pen 300 mg/2 mL pen injector 300 mg subcut Q2W 28 Days Qty: 4 12RF Rx Instructions: Initial dose 600 mg, then 300 mg every 2 weeks subcutaneously ipratropium-albuterol 0.5 mg-3 mg(2.5 mg base)/3 mL solution for nebulization 3 ml inhalation Q4-6H PRN (Reason: wheezing) 30 Days Qty: 270 6RF loratadine 10 mg tablet 10 mg PO DAILY 30 Days Qty: 30 6RF montelukast 10 mg tablet 10 mg PO DAILY Qty: 90 0RF bisacodyl [Dulcolax (bisacodyl)] 5 mg tablet,delayed release (DR/EC) 10 mg PO BEDTIME 30 Days Qty: 60 3RF dexlansoprazole [Dexilant] 60 mg capsule,biphase delayed releas 60 mg PO DAILY Qty: 90 0RF simethicone 180 mg capsule 180 mg PO QID 30 Days Qty: 120 6RF Rx Instructions: after meals albuterol sulfate [Ventolin HFA] 90 mcg/actuation HFA aerosol inhaler 2 puff inhalation Q4H Qty: 18 0RF levothyroxine 150 mcg tablet 150 mcg PO QAM 90 Days Qty: 90 0RF lidocaine [Lidoderm] 5 % adhesive patch,medicated 1 patch topical DAILY Qty: 15 0RF Rx Instructions: leave on most painful area for up to 12 hrs epinephrine 0.3 mg/0.3 mL auto-injector 0.3 mg IM Q10M PRN (Reason: anaphylaxis) Qty: 2 0RF Rx Instructions: for 2 doses lorazepam [Ativan] 0.5 mg tablet 0.5 mg PO BID PRN (Reason: anxiety) Qty: 5 0RF oxcarbazepine 150 mg tablet 150 mg PO BID Qty: 6 0RF cyclobenzaprine 10 mg tablet 10 mg PO Q8H Qty: 20 0RF fluticasone propion-salmeterol [Advair Diskus] 500-50 mcg/dose blister with device 1 ea inhalation BID Print Language: Maori
[2024-05-29 13:10] VITALS: BMI 33.6
--- NOTE | 2024-05-29 13:10 | ECG_ITS ---
Test Reason : STROKE Blood Pressure : */* mmHG Vent. Rate : 81 BPM Atrial Rate : 81 BPM P-R Int : 162 ms QRS Dur : 86 ms QT Int : 360 ms P-R-T Axes : 36 -22 12 degrees QTcB Int : 418 ms Normal sinus rhythm Cannot rule out Anterior infarct (cited on or before 06-Nov-2023) Abnormal ECG When compared with ECG of 24-Apr-2024 16:26, No significant change was found Referred By: Sandra Rasheed Electronically Signed By: Kd Hernandez
[2024-05-29 13:17] VITALS: BP 154/88; PULSE 96; O2SAT 96; BMI 33.7
[2024-05-29 13:21] LABS: Glucose, Whole Blood 126 mg/dL (60-115)
[2024-05-29] MEDS: iohexoL 350 MG/ML 75 ML INFUS..BTL 70 ML IV (13:34)
[2024-05-29 13:41] LABS: MANUAL DIFF FLAG NO
[2024-05-29 13:43] LABS: Basophils Percent Auto 0.7 % (0-2); Eosinophils Absolute Auto 0.2 X10*3/uL (0.0-0.4); Eosinophils Percent Auto 2.5 % (0-4); Hematocrit 36.1 % (37.0-47.0); Hemoglobin 12.2 g/dl (12.0-16.0); Imm Gran Abs Auto 0.01 X10*3/uL (0.00-0.03); Imm Gran Pct Auto 0.2 % (0.0-0.4); Lymphocytes Absolute Auto 1.5 X10*3/uL (1.2-4.9); Lymphocytes Percent Auto 23.7 % (20-40); Mean Corpuscular HGB Conc 33.8 g/dl (31.0-35.0); Mean Corpuscular Hemoglobin 27.4 pg (27.0-33.0); Mean Corpuscular Volume 80.9 fL (80.0-98.0); Mean Platelet Volume 9.9 fL (9.4-12.3); Monocytes Absolute Auto 0.5 X10*3/uL (0.1-1.2); Monocytes Percent Auto 7.4 % (2-11); Neutrophils Percent Auto 65.5 % (45-73); Platelet Count 221 X10*3/uL (160-400); Red Blood Count 4.46 X10*6/uL (4.20-5.50); Red Cell Distribution Width 14.1 % (11.0-16.0); White Blood Count 6.1 X10*3/uL (4.8-10.8)
[2024-05-29 13:48] VITALS: BP 155/94; PULSE 87; RESP 18; TEMP 36.5; O2SAT 96
[2024-05-29 13:50] LABS: Prothrombin Time 11.9 SEC (10.9-12.4)
[2024-05-29 13:53] LABS: Partial Thromboplastin Time 31.9 SEC (26.0-36.8)
--- NOTE | 2024-05-29 13:58 | PC.NURSE ---
As CT was finishing pt was able to demonstrate equal strength in BUEs and BLEs. VERY slight weakness in facial expression just around mouth was noted. Otherwise no neuro deficits. Was able to get up to commode w/o difficulty. Speech is clear. Does report that earlier the day at onset of headache had episode of vomiting x 1. None since. Denies nausea now.
[2024-05-29 14:00] LABS: Anion Gap 11 (12-20); Blood Urea Nitrogen 10 mg/dL (9-16); Calcium 8.6 mg/dL (8.4-10.2); Carbon Dioxide 21 mmol/L (22-29); Chloride 110 mmol/L (96-108); Cholesterol 157 mg/dL (<200); Creatinine Clr Calc Pharmacy 109.2; Estimated Glomerular Filt Rate > 60; Glucose Random 98 mg/dL (60-115); HDL Cholesterol 41 mg/dL (>40); LDL Cholesterol Calculated 98 mg/dL (<100); Potassium 3.6 mmol/L (3.3-5.1); Sodium 138 mmol/L (135-145); Triglycerides 91 mg/dL (<150)
[2024-05-29 14:08] LABS: Troponin-I High Sensitivity < 2.7 ng/L (<3.5-17.0)
[2024-05-29 14:15] LABS: Stroke Lab Use COMPLETE
--- NOTE | 2024-05-29 15:20 | P.HPHOSP_ITS ---
History of Present Illness Date of Service: 05/29/24 Attending physician on admission: [facility] Chief Complaint: Facial droop, weakness Pt is a 54-year-old female with a PMH significant for?severe persistent asthma with environmental allergies, carotid aneurysm s/p coiling in 2001 at [facility], TIA, fibromyalgia, hypothyroidism, multiple joint pain, migraines PTSD, anxiety, and panic disorder who presents to the ED with?left-sided deficits. Pt reports symptoms began 3 days ago on when she was at work and her ?brain felt like it shutting down?. [place] like ?everything was gone? she could not speak or think clearly. Had headache in the back of her head that radiated down her left arm. Pt reports went home and felt exhausted for the next 2 days. Thursday reports felt very ?emotional? and had nausea and vomiting. Today pt reports fell forward onto the coffee table at home when she went to stand up. Unclear whether had lightheadedness or dizziness. Pt then attempted to call 911 and noted that the numbers and letters appeared ?mixed up? and she had difficulty seeing and typing on her phone. When pt arrived to the ED she scored a 6 on NIH stroke scale with left-sided upper and lower extremity weakness, left-sided facial droop, and positive for left-sided pronator drift. Symptoms resolved within 30 minutes except for facial droop. Pt is well known to Neurology and Dr. Tay, who was contacted but advised against TNK due to unknown last well known time and quick resolution of symptoms. Of note, pt reports she is supposed to be on an aspirin but has taking due to being on so many other medications. In the ED pt was hypertensive up to 157/84, vitals otherwise stable and WNL. Labs were grossly unremarkable and around baseline pt. No leukocytosis. Stable H&H. No significant electrolyte abnormalities. Renal function baseline. Troponin negative. Lipid panel WNL. CT?of head negative for acute intracranial process. CTA of head/neck patent without large vessel occlusion, flow-limiting stenosis, or aneurysm. EKG demonstrated normal sinus rhythm without significant ischemic changes, similar to previous. Pt will be admitted to the hospital under observation for treatment and further evaluation of left-sided deficits concerning for possible TIA vs seizure vs complex migraine. Review of Systems 2 Review of Systems: Negative except for that which is stated in the [facility] Medical History Other specified hypothyroidism Colon cancer screening Left sided abdominal pain Influenza A H1N1 infection Stool incontinence Shoulder pain Anemia Bronchitis due to COVID-19 virus COVID Acute pneumonia Work related injury Acute diarrhea Paresthesias in left hand Dysuria PFO (patent foramen ovale) Shortness of breath Community acquired pneumonia Hospital discharge follow-up Chronic idiopathic constipation Pre-op examination Encounter for routine gynecological examination LFT elevation Encounter for general adult medical examination with abnormal findings Respiratory tract congestion with cough Hospital discharge follow-up COVID-19 Tracheobronchitis COVID-19 Iron deficiency anemia Shoulder pain, right Nausea and vomiting PFO (patent foramen ovale) History of transesophageal echocardiography (LAN) Colitis Abnormal angiogram of head COVID-19 Asthma Thyroid disease GERD (gastroesophageal reflux disease) Anemia Aneurysm Family History Father Diabetes Arthritis Diverticulitis Leukemia Mental health disorder Lung cancer Mother Anemia Arthritis Colon polyps Myocardial infarction Brother Crohn's disease Testicular cancer Brother Cancer Paternal Grandfather Leukemia Other Substance use disorder Surgical History History of surgery of uterus H/O endoscopy History of H/O brain surgery History of colonoscopy Social History Household Members: Significant Other Housing: House Are you a primary healthcare or medical to a significant other at home: No Do you presently have visiting nurse or other home services: No Alcohol intake: former Patient Tobacco Use Status: Former Tobacco user Tobacco use type: Cigarette Cigarettes Per Day: 10 Smoked in Last 30 Days: No e-Cigarette/Vaping Use: Never Used Use of substances other than those prescribed or required for medical reasons: No Advance Directives: Yes Advance Directives on File: Yes Advance Directives Date on File: 04/09/21 Patient : No service: No 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al status: employed 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: [employer]/ right hand dominant Cognitive needs: No Hearing needs: No Vision needs: Yes Meds Allergies Allergy/AdvReac Type Severity Reaction Status Date / Time niacin Allergy Intermediate skin Verified 05/29/24 13:27 [Niaspan Extended-Release] blisters tramadol Allergy Intermediate seizures Verified 05/29/24 13:27 barley [BARLEY] Allergy Unknown UNKNOWN Verified 05/29/24 13:27 fluticasone [Advair Diskus] Allergy Unknown Shortness Verified 05/29/24 13:27 of Breath ibuprofen Allergy Unknown Swelling Verified 05/29/24 13:27 naratriptan Allergy Unknown unknown Verified 05/29/24 13:27 Penicillins [PENICILLINS] Allergy Unknown Unknown Verified 05/29/24 13:27 sumatriptan Allergy Unknown unknown Verified 05/29/24 13:27 trazodone [TRAZODONE] Allergy Unknown UNKNOWN Verified 05/29/24 13:27 omalizumab [From Xolair] AdvReac Severe Anaphylaxis Verified 05/29/24 13:27 rubber, unspecified AdvReac Severe Unknown Verified 05/29/24 13:27 equate cough drops sugar free Allergy Mild Unknown Uncoded 05/13/24 12:59 silicone AdvReac Severe Unknown Uncoded 05/13/24 12:59 vaseline AdvReac Severe hives Uncoded 05/13/24 12:59 Home Medications ?Medication ?Instructions ?Recorded ?Confirmed ?Last Taken ?Type fluticasone 500 mcg-salmeterol 50 1 ea inhalation BID 11/19/23 05/29/24 Unknown History mcg/dose blistr powdr for inhalation (Advair Diskus) acetaminophen 500 mg tablet 1,000 mg PO Q6H PRN Pain 05/29/24 05/29/24 Unknown History albuterol sulfate 90 mcg/actuation 2 puff inhalation Q4H PRN 05/29/24 05/29/24 Unknown History aerosol inhaler (Ventolin HFA) Shortness Of Breath Or Wheezing bisacodyl 5 mg tablet,delayed 10 mg PO BEDTIME PRN Constipation 05/29/24 05/29/24 Unknown History release (Dulcolax (bisacodyl)) bupropion HCl 150 mg tablet,12 hr 150 mg PO BID@0800,1200 05/29/24 05/29/24 Unknown History sustained-release clonidine HCl 0.1 mg tablet 0.1 mg PO DAILY PRN panic attack 05/29/24 05/29/24 Unknown History ibuprofen 200 mg tablet 600 - 800 mg PO Q8H PRN Pain 05/29/24 05/29/24 Unknown History lidocaine 4 % topical patch 1 patch topical DAILY PRN Pain 05/29/24 05/29/24 Unknown History lorazepam 0.5 mg tablet (Ativan) 0.5 mg PO DAILY PRN anxiety 05/29/24 05/29/24 Unknown History naproxen sodium 220 mg tablet 220 mg PO Q12H PRN Pain 05/29/24 05/29/24 Unknown History (Aleve) nystatin 100,000 unit/gram topical 1 appl topical BID PRN Rash 05/29/24 05/29/24 Unknown History powder simethicone 180 mg capsule 180 mg PO QID PRN gas 05/29/24 05/29/24 Unknown History Physical Exam 2 Vital Signs and Narrative: Vital Signs: Last Vital Signs Temp 97.7 F 05/29/24 13:48 Pulse 87 05/29/24 13:48 Resp 18 05/29/24 13:48 BP 155/94 H 05/29/24 13:48 Pulse Ox 96 05/29/24 13:48 O2 Del Method Room Air 05/29/24 13:48 BMI result Body Mass Index 33.7 General: AOx3, no acute distress Resp: CTA bilaterally CVS: S1, S2, RRR GI: +BS, NT, no distention Skin: Warm, dry Neuro: Cranial nerves II-XII grossly intact bilaterally. Motor grossly intact bilaterally Extremities: No edema Psych: Appropriate affect Results Labs 05/29/24 13:34 05/29/24 13:34 Labs: Laboratory Results - last 24 hr 05/29/24 05/29/24 13:13 13:34 MCV 80.9 MCH 27.4 MCHC 33.8 RDW 14.1 Plt Count 221 MPV 9.9 Immature Gran % (Auto) 0.2 Neut % (Auto) 65.5 Lymph % (Auto) 23.7 [place] % (Auto) 7.4 Eos % (Auto) 2.5 Baso % (Auto) 0.7 Lymph # (Auto) 1.5 [place] # (Auto) 0.5 Eos # (Auto) 0.2 Baso # (Auto) 0.0 Abs Immat Gran (auto) 0.01 Absolute Neuts (auto) 4.0 Absolute Nucleated RBC 0.000 Nucleated RBC % (auto) 0.0 Hold Purple Top SEE NOTE PT 11.9 INR 1.0 APTT 31.9 Anion Gap 11 L Estim Creat Clear Calc 109.2 Estimated GFR > 60 POC Glucose 126 H Random Glucose 98 Calcium 8.6 Troponin I High Sens < 2.7 Triglycerides 91 Cholesterol 157 LDL Cholesterol, Calc 98 HDL Cholesterol 41 Assessment and Plan (1) Left-sided weakness: Status: Acute Plan Pt is a 54-year-old female with a PMH significant for?severe persistent asthma with environmental allergies, carotid aneurysm s/p coiling in 2001 at [facility], TIA, fibromyalgia, hypothyroidism, multiple joint pain, migraines PTSD, anxiety, and panic disorder who presents to the ED with?left-sided deficits. Pt will be admitted to the hospital under observation for treatment and further evaluation of left-sided deficits concerning for possible TIA vs seizure vs complex migraine. Left-sided deficits Pt complaining of difficulty thinking and speaking, headache radiating down left arm x3 days; blurriness and difficulty typing with fall at home this morning At time of presentation to the ED had NIH stroke scale of 6 due to left-sided weakness, positive pronator drift, and left-sided facial droop, now resolved after [address] of head and CTA of head/neck negative Pt with hx of TIA and carotid aneurysm s/p coiling in 2001 Concerning for TIA vs seizure vs complex migraine Will give aspirin MRI of head/brain PT/OT consult Neurology consult Monitor on telemetry Asthma Not in acute exacerbation Continue home inhalers Continue loratadine, montelukast Hypothyroidism Continue levothyroxine Mood disorder Continue bupropion, clonidine, lorazepam, and oxcarbazepine Full Code Attending:?Dr. Bearden DVT Prophylaxis: Lovenox Pt will be admitted to the hospital under observation for treatment and further evaluation of left-sided deficits now resolved concerning for TIA vs seizure vs complex migraine. Quality Stroke Does the patient have a stroke diagnosis?: No Reason for No Anti-thrombotic by Day Two: Contraindicated (Unclear last known well time.) VTE Prior VTE?: No VTE Risk Level:: Medical - moderate - high VTE Device Contraindication: Treatment Not Indicated VTE Drug Contraindication: N/A - Med Ordered
[2024-05-29 15:21] VITALS: BP 157/84; PULSE 77; RESP 18; TEMP 36.6; O2SAT 97
--- NOTE | 2024-05-29 15:22 | PC.NURSE ---
no neuro deficits. just complaining of feeling very tired.
[2024-05-29 15:32] LABS: Glucose, Whole Blood 102 mg/dL (60-115)
--- NOTE | 2024-05-29 16:01 | PC.NURSE ---
no changes in neuro exam. Pt sleeping mostly.
--- NOTE | 2024-05-29 16:14 | PHA.MEDREC ---
Addendum entered by Valentina Melendez RPh 05/29/24 16:24: Reviewed by [facility] Original Note: Pharmacy Consult ? Medication Reconciliation Pharmacy has completed the medication reconciliation. Spoke with patient to confirm medications. She administers Dupixent q2 weeks, last had 05/25/24. She takes her second dose of bupropion at noon time. For OTC pain meds, she takes ibuprofen first, if ineffective she uses tylenol, if thats ineffective she uses Aleve. She ran out of cyclobenzaprine and does not take oxycodone. She only took levothyroxine today, the rest of her medications she took yesterday morning.
[2024-05-29] MEDS: Enoxaparin Sodium 40 MG/0.4 ML SYRINGE SUBCUT (16:46)
[2024-05-29] MEDS: Aspirin 325 MG TABLET PO (16:46)
--- NOTE | 2024-05-29 17:13 | PC.NURSE ---
Pt reporting changes in vision. limited to jumbled letters on closed captioning on TV screen. Pt has no other neuro deficits. Awaits MRI.
[2024-05-29 20:00] VITALS: PULSE 90; RESP 18; O2SAT 95
[2024-05-29] MEDS: OXcarbazepine 150 MG TABLET PO (21:36)
--- NOTE | 2024-05-29 23:20 | PC.NURSE ---
This field underwriter assumed care of this Pt at 2300. 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 Pt amble to self transfer to bedside commode.
--- NOTE | 2024-05-30 | EEG_ITS ---
This is a 16-channel EEG with an EKG lead. The patient is reported awake during the tracing. Background EEG rhythm is about 10 hertz 5 to 50 microvolt posteriorly and lower amplitude fast anteriorly. Some rare bitemporal sharp waves were noted, which were more obvious on average montage. Photic stimulation does not produce any significant abnormality. Hyperventilation is not performed. Cardiac lead does not reveal any significant abnormality. IMPRESSION: Mildly abnormal EEG suggestive of bitemporal irritability. This suggested possibility of partial or complex partial seizure disorder. MD ZORAIDA Morgan/FRANCES / [phone]
[2024-05-30] MEDS: 0.9 % Sodium Chloride Flush 3 ML SYRINGE IVFLUSH ×3 (00:51→15:24)
[2024-05-30] MEDS: NaPROXEN 250 MG TABLET PO (01:40)
[2024-05-30 03:28] VITALS: BMI 34.8
[2024-05-30 03:36] VITALS: BP 117/53; PULSE 62; RESP 18; TEMP 36.6; O2SAT 97
[2024-05-30] MEDS: Levothyroxine Sodium 150 MCG TABLET PO (06:20)
[2024-05-30] MEDS: Omeprazole 40 MG CAPSULE.DR PO (06:44)
[2024-05-30 07:09] VITALS: BP 122/65; PULSE 72; RESP 16; TEMP 36.7; O2SAT 96
[2024-05-30] MEDS: Loratadine 10 MG TABLET PO (09:30)
[2024-05-30] MEDS: buPROPion HCl XL 300 MG TAB.ER.24H PO (09:31)
[2024-05-30] MEDS: OXcarbazepine 150 MG TABLET PO ×2 (09:31→20:07)
[2024-05-30] MEDS: Aspirin 81 MG TAB.CHEW PO (09:31)
[2024-05-30] MEDS: Montelukast Sodium 10 MG TABLET PO (09:31)
--- NOTE | 2024-05-30 10:20 | MHC.CM.PN ---
CRISTIAN 05/30/24, PT W/TIA, CM MET W/PT WHO REPORTS SHE LIVES W/BF AND HER KIDS, PT ADLS INDEP HOWEVER BF DOES MOST OF COOKING/CLEANING, PT WAS NOT USING PRIOR TO ADMIT HOWEVER DOES HAVE A CANE/WALKER/EC AT HOME, NO HOME SERVICES, PT AGREEABLE TO [facility] FOR SERVICES, PT EVAL/MRI PENDING. PT VERIFIES PCP/HCP ON FILE ARE CORRECT. ANTIC HOME W/NEW [facility] BY TOMORROW 05/31.
--- NOTE | 2024-05-30 10:22 | P.CNNE_ITS ---
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 She was here with complain of right-sided occipital area headache and left-sided numbness. An episode happened at work few days ago and then another 1 which brought her to hospital. Initially she was considered to be a candidate for acute ischemic stroke treatment but after reviewing her clinical history, it was decided not to treat her with TNK. Now she was feeling better. Review of Systems 2 Review of Systems: No recent cold or flu-like illness PMFSH Past Medical History Medical History Other specified hypothyroidism Colon cancer screening Left sided abdominal pain Influenza A H1N1 infection Stool incontinence Shoulder pain Anemia Bronchitis due to COVID-19 virus COVID Acute pneumonia Work related injury Acute diarrhea Paresthesias in left hand Dysuria PFO (patent foramen ovale) Shortness of breath Community acquired pneumonia Hospital discharge follow-up Chronic idiopathic constipation Pre-op examination Encounter for routine gynecological examination LFT elevation Encounter for general adult medical examination with abnormal findings Respiratory tract congestion with cough Hospital discharge follow-up COVID-19 Tracheobronchitis COVID-19 Iron deficiency anemia Shoulder pain, right Nausea and vomiting PFO (patent foramen ovale) History of transesophageal echocardiography (LAN) Colitis Abnormal angiogram of head COVID-19 Asthma Thyroid disease GERD (gastroesophageal reflux disease) Anemia Aneurysm Family History Family History Father Diabetes Arthritis Diverticulitis Leukemia Mental health disorder Lung cancer Mother Anemia Arthritis Colon polyps Myocardial infarction Brother Crohn's disease Testicular cancer Brother Cancer Paternal Grandfather Leukemia Other Substance use disorder Surgical History Surgical History History of surgery of uterus H/O endoscopy History of H/O brain surgery History of colonoscopy Social History Social History Household Members: Spouse and Children Housing: House Are you a primary career discovery teacher to a significant other at home: No Do you presently have visiting nurse or other home services: No Alcohol intake: former Patient Tobacco Use Status: Former Tobacco user Tobacco use type: Cigarette Cigarettes Per Day: 10 e-Cigarette/Vaping Use: Never Used Second Hand Smoke Exposure: No Advance Directives Date on File: 04/09/21 service: No 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al status: employed 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: [employer]/ right hand dominant Cognitive needs: No Hearing needs: No Vision needs: Yes Meds Allergies Allergy/AdvReac Type Severity Reaction Status Date / Time niacin Allergy Intermediate skin Verified 05/29/24 13:27 [Niaspan Extended-Release] blisters tramadol Allergy Intermediate seizures Verified 05/29/24 13:27 barley [BARLEY] Allergy Unknown UNKNOWN Verified 05/29/24 13:27 fluticasone [Advair Diskus] Allergy Unknown Shortness Verified 05/29/24 13:27 of Breath ibuprofen Allergy Unknown Swelling Verified 05/29/24 13:27 naratriptan Allergy Unknown unknown Verified 05/29/24 13:27 Penicillins [PENICILLINS] Allergy Unknown Unknown Verified 05/29/24 13:27 sumatriptan Allergy Unknown unknown Verified 05/29/24 13:27 trazodone [TRAZODONE] Allergy Unknown UNKNOWN Verified 05/29/24 13:27 omalizumab [From Xolair] AdvReac Severe Anaphylaxis Verified 05/29/24 13:27 rubber, unspecified AdvReac Severe Unknown Verified 05/29/24 13:27 equate cough drops sugar free Allergy Mild Unknown Uncoded 05/13/24 12:59 silicone AdvReac Severe Unknown Uncoded 05/13/24 12:59 vaseline AdvReac Severe hives Uncoded 05/13/24 12:59 Active Medications: Current Medications Acetaminophen (Acetaminophen 325 Mg Tablet) 650 mg PO Q6H PRN PRN Reason: Pain, Mild 1-3,fever,headache Albuterol Sulfate (Albuterol Sulfate 90 Mcg 8 Gm Inhaler) 2 puff INHALE Q4H PRN PRN Reason: Shortness Of Breath Or Wheezing Albuterol/Ipratropium (Albuterol/Iprat 2.5/0.5mg 3 Ml Ampul.Neb) 3 ml INHALE Q4H PRN PRN Reason: wheezing Aspirin (Aspirin 81 Mg Tab.Chew) 81 mg PO DAILY [facility] Last Admin: 05/30/24 09:31 Dose: 81 mg Bisacodyl (Bisacodyl 5 Mg Tablet.Dr) 10 mg PO BEDTIME PRN PRN Reason: Constipation Bupropion HCl (Bupropion Hcl Xl 300 Mg Tab.Er.24h) 300 mg PO DAILY [facility] Last Admin: 05/30/24 09:31 Dose: 300 mg Calcium Carbonate (Calcium Carbonate 750 Mg Tab.Chew) 750 mg PO Q4H PRN PRN Reason: Heartburn Clonidine HCl (Clonidine Hcl 0.1 Mg Tablet) 0.1 mg PO DAILY PRN; Protocol PRN Reason: panic attack Enoxaparin Sodium (Enoxaparin Sodium 40 Mg/0.4 Ml Syringe) 40 mg SUBCUT Q24H [facility] Last Admin: 05/29/24 16:46 Dose: 40 mg Fluticasone Propionate (Fluticasone Propionate Nasal 16 Gm [place]) 2 spray NOSTRIL-B BID [facility] Last Admin: 05/30/24 09:49 Dose: Not Given Fluticasone/Vilanterol (Fluticasone/Vilanterol 200/25 Blst.W.Dev) 1 puff INHALE RDAILY [facility] Last Admin: 05/30/24 08:21 Dose: Not Given Levothyroxine Sodium (Levothyroxine Sodium 150 Mcg Tablet) 150 mcg PO DAILY@0600 [facility] Last Admin: 05/30/24 06:20 Dose: 150 mcg Loratadine (Loratadine 10 Mg Tablet) 10 mg PO DAILY [facility] Last Admin: 05/30/24 09:30 Dose: 10 mg Lorazepam (Lorazepam 0.5 Mg Tablet) 0.5 mg PO DAILY PRN PRN Reason: anxiety Magnesium Hydroxide (Milk Of Magnesia 30 Ml Oral.Susp) 30 ml PO DAILY PRN PRN Reason: Constipation Melatonin (Melatonin 3 Mg Tablet) 6 mg PO BEDTIME PRN PRN Reason: Insomnia Montelukast Sodium (Montelukast Sodium 10 Mg Tablet) 10 mg PO DAILY [facility] Last Admin: 05/30/24 09:31 Dose: 10 mg Naproxen (Naproxen 250 Mg Tablet) 250 mg PO Q12H PRN PRN Reason: Pain, Mild 1-3,fever,headache Last Admin: 05/30/24 01:40 Dose: 250 mg Omeprazole (Omeprazole 40 Mg Capsule.Dr) 40 mg PO DAILY@0630 [facility] Last Admin: 05/30/24 06:44 Dose: 40 mg Ondansetron HCl (Ondansetron Hcl 4 Mg/2 Ml Vial) 4 mg IVPUSH Q8H PRN PRN Reason: Nausea and Vomiting Oxcarbazepine (Oxcarbazepine 150 Mg Tablet) 150 mg PO BID [facility] Last Admin: 05/30/24 09:31 Dose: 150 mg Simethicone (Simethicone 80 Mg Tab.Chew) 160 mg PO QID PRN PRN Reason: gas Sodium Chloride (0.9 % Sodium Chloride Flush 3 Ml Syringe) 3 ml IVFLUSH QSHIFT [facility] Last Admin: 05/30/24 09:48 Dose: 3 ml Home Medications ?Medication ?Instructions ?Recorded ?Confirmed ?Last Taken ?Type fluticasone 500 mcg-salmeterol 50 1 ea inhalation BID 11/19/23 05/29/24 Unknown History mcg/dose blistr powdr for inhalation (Advair Diskus) acetaminophen 500 mg tablet 1,000 mg PO Q6H PRN Pain 05/29/24 05/29/24 Unknown History albuterol sulfate 90 mcg/actuation 2 puff inhalation Q4H PRN 05/29/24 05/29/24 Unknown History aerosol inhaler (Ventolin HFA) Shortness Of Breath Or Wheezing bisacodyl 5 mg tablet,delayed 10 mg PO BEDTIME PRN Constipation 05/29/24 05/29/24 Unknown History release (Dulcolax (bisacodyl)) bupropion HCl 150 mg tablet,12 hr 150 mg PO BID@0800,1200 05/29/24 05/29/24 Unknown History sustained-release clonidine HCl 0.1 mg tablet 0.1 mg PO DAILY PRN panic attack 05/29/24 05/29/24 Unknown History ibuprofen 200 mg tablet 600 - 800 mg PO Q8H PRN Pain 05/29/24 05/29/24 Unknown History lidocaine 4 % topical patch 1 patch topical DAILY PRN Pain 05/29/24 05/29/24 Unknown History lorazepam 0.5 mg tablet (Ativan) 0.5 mg PO DAILY PRN anxiety 05/29/24 05/29/24 Unknown History naproxen sodium 220 mg tablet 220 mg PO Q12H PRN Pain 05/29/24 05/29/24 Unknown History (Aleve) nystatin 100,000 unit/gram topical 1 appl topical BID PRN Rash 05/29/24 05/29/24 Unknown History powder simethicone 180 mg capsule 180 mg PO QID PRN gas 05/29/24 05/29/24 Unknown History Physical Exam 2 Vital Signs: Vital Signs: Last Vital Signs Temp 98.0 F 05/30/24 07:09 Pulse 72 05/30/24 07:09 Resp 16 05/30/24 07:09 BP 122/65 05/30/24 07:09 Pulse Ox 96 05/30/24 07:09 O2 Del Method Room Air 05/30/24 07:09 BMI result Body Mass Index 34.8 Neuro: Other: She is alert and awake with normal spontaneity and fluency of speech and flat affect. Face was symmetrical. Visual chen are full. There was no obvious focal arm or leg weakness. Speech was normal. Results Labs 05/29/24 13:34 05/29/24 13:34 Labs: Short CBC 05/29/24 Range/Units 13:34 WBC 6.1 (4.8-10.8) X10*3/uL Hgb 12.2 (12.0-16.0) g/dl Hct 36.1 L (37.0-47.0) % Plt Count 221 (160-400) X10*3/uL BMP 05/29/24 13:34 Sodium 138 Potassium 3.6 Chloride 110 H Carbon Dioxide 21 L BUN 10 Creatinine 0.69 [address]cium [address] revealed an aneurysm coil and minimal left frontal area white matter hypodensity. CTA did not reveal any vascular lesion. Assessment and Plan (1) Left-sided weakness: Status: Acute Probably migraine equivalents syndrome with previous history of hemiplegic migraine and similar episodes. Differential diagnosis would also include complex partial seizure disorder because of her previous history of aneurysm clipping. I recommend an EEG and if that is okay starting her on verapamil 40 mg twice a day. Procedures Date of Service Date of Service: 05/30/24
[2024-05-30 11:18] VITALS: BP 134/88; PULSE 73; RESP 16; TEMP 36.3; O2SAT 99
--- NOTE | 2024-05-30 11:43 | P.DS_ITS ---
DS: Providers Provider Date of Service: 05/30/24 <Juancho Bearden MD - Last Filed: 06/01/24 09:30> 06/01/24 <Blessing Bowen MD - Last Filed: 06/01/24 15:01> 06/02/24 <DAVID Hua - Last Filed: 06/02/24 11:08> Date of admission: 05/29/24 16:09 <Juancho Bearden MD - Last Filed: 06/01/24 09:30> Date of discharge: 05/30/24 <Juancho Bearden MD - Last Filed: 06/01/24 09:30> 06/01/24 <Blessing Bowen MD - Last Filed: 06/01/24 15:01> 06/02/24 <DAVID Hua - Last Filed: 06/02/24 11:08> Primary care physician: Thee Tay MD <Juancho Bearden MD - Last Filed: 06/01/24 09:30> Consults: 05/29/24 16:13 Consult to Neurology Routine Consulting Provider: [facility] Reason for consultation: Left-sided deficits, ?TIA vs seizure vs complex migraine <Juancho Bearden MD - Last Filed: 06/01/24 09:30> Attending physician on discharge: Scottie Tena <DAVID Hua - Last Filed: 06/02/24 11:08> Discharging clinician: Dayami Schulz <DAVID Hua - Last Filed: 06/02/24 11:08> DS: Diagnosis Discharge Diagnosis (1) Left-sided weakness: Status: Acute <Juancho Bearden MD - Last Filed: 06/01/24 09:30> DS: Summary Hospital Course Hospital Course: admission hpi Chief Complaint: Facial droop, weakness Pt is a 54-year-old female with a PMH significant for?severe persistent asthma with environmental allergies, carotid aneurysm s/p coiling in 2001 at [facility], TIA, fibromyalgia, hypothyroidism, multiple joint pain, migraines PTSD, anxiety, and panic disorder who presents to the ED with?left-sided deficits. Pt reports symptoms began 3 days ago on when she was at work and her ?brain felt like it shutting down?. [place] like ?everything was gone? she could not speak or think clearly. Had headache in the back of her head that radiated down her left arm. Pt reports went home and felt exhausted for the next 2 days. Thursday reports felt very ?emotional? and had nausea and vo miting. Today pt reports fell forward onto the coffee table at home when she went to stand up. Unclear whether had lightheadedness or dizziness. Pt then attempted to call 911 and noted that the numbers and letters appeared ?mixed up? and she had difficulty seeing and typing on her phone. When pt arrived to the ED she scored a 6 on NIH stroke scale with left-sided upper and lower extremity weakness, left-sided facial droop, and positive for left-sided pronator drift. Symptoms resolved within 30 minutes except for facial droop. Pt is well known to Neurology and Dr. Tay, who was contacted but advised against TNK due to unknown last well known time and quick resolution of symptoms. Of note, pt reports she is supposed to be on an aspirin but has taking due to being on so many other medications. In the ED pt was hypertensive up to 157/84, vitals otherwise stable and WNL. Labs were grossly unremarkable and around baseline pt. No leukocytosis. Stable H&H. No significant electrolyte abnormalities. Renal function baseline. Troponin negative. Lipid panel WNL. CT?of head negative for acute intracranial process. CTA of head/neck patent without large vessel occlusion, flow-limiting stenosis, or aneurysm. EKG demonstrated normal sinus rhythm without significant ischemic changes, similar to previous. Pt will be admitted to the hospital under observation for treatment and further evaluation of left-sided deficits concerning for possible TIA vs seizure vs complex migraine. hospital course: Patient was observed in the hospital for above symptoms.. CT and CTA showed no evidence of stroke. Seen by neurologist,, they recommended EEG that showed rare bitemporal sharp waves suggestive of partial or complex partial seizure they recommended Topamax 25 mg b.i.d. patient is recommended to avoid driving a car or operate machinery and a follow-up with neurology in 2-4 weeks. MRI negative for stroke. , patient also likely has component of migraine, in regard to left leg pain with prior history of sciatica placed on Celebrex and as needed Flexeril ,recommend to continue physical therapy at rehab. <Juancho Bearden MD - Last Filed: 06/01/24 09:30> Time Attestation Discharge Coordination Time (in mins): 36 <DAVID Hua - Last Filed: 06/02/24 11:08> Quality: Safe Use of Opioids Does Pt have an Active Cancer Diagnosis on the Problem List?: No <Juancho Bearden MD - Last Filed: 06/01/24 09:30> Quality: Stroke Does the patient have a stroke diagnosis?: No <Juancho Bearden MD - Last Filed: 06/01/24 09:30> Physical Exam Vital Signs: Vital Signs: Last Vital Signs Temp 97.4 F 05/30/24 11:18 Pulse 73 05/30/24 11:18 Resp 16 05/30/24 11:18 BP 134/88 05/30/24 11:18 Pulse Ox 99 05/30/24 11:18 O2 Del Method Room Air 05/30/24 11:18 BMI result Body Mass Index 34.8 <Juancho Bearden MD - Last Filed: 06/01/24 09:30> Const: Other: General: AO X 3, no acute distress Resp: CTA bilateral CVS: S1,S2,RRR GI: +BS, NT, no distention Skin: No rash Neuro: motor grossly intact Psych: appropriate affect <Juancho Bearden MD - Last Filed: 06/01/24 09:30> General: cooperative, comfortable, alert and awake <DAVID Hua - Last Filed: 06/02/24 11:08> Nutritional Appearance: average body habitus <DAVID Hua Last Filed: 06/02/24 11:08> Orientation/consciousness: patient oriented x3 <DAVID Hua Last Filed: 06/02/24 11:08> Resp: Effort & Inspection: normal respiratory effort, able to speak in complete sentences, no respiratory distress and no use of accessory muscles <DAVID Hua Last Filed: 06/02/24 11:08> Neuro: General: patient oriented x3 and moves all extremities <DAVID Hua Last Filed: 06/02/24 11:08> DS: Data Data Completed and Pending Labs on day of discharge: Laboratory Results - last 24 hr 05/29/24 05/29/24 05/29/24 13:13 13:34 15:28 WBC 6.1 RBC 4.46 Hgb 12.2 Hct 36.1 L MCV 80.9 MCH 27.4 MCHC 33.8 RDW 14.1 Plt Count 221 MPV 9.9 Immature Gran % (Auto) 0.2 Neut % (Auto) 65.5 Lymph % (Auto) 23.7 [place] % (Auto) 7.4 Eos % (Auto) 2.5 Baso % (Auto) 0.7 Lymph # (Auto) 1.5 [place] # (Auto) 0.5 Eos # (Auto) 0.2 Baso # (Auto) 0.0 Abs Immat Gran (auto) 0.01 Absolute Neuts (auto) 4.0 Absolute Nucleated RBC 0.000 Nucleated RBC % (auto) 0.0 Hold Purple Top SEE NOTE PT 11.9 Whole Blood PT 12.0 INR 1.0 Whole Blood INR 1.0 APTT 31.9 Sodium 138 Potassium 3.6 Chloride 110 H Carbon Dioxide 21 L Anion Gap 11 L BUN 10 Creatinine 0.69 Estim Creat Clear Calc 109.2 Estimated GFR > 60 POC Glucose 126 H 102 Random Glucose 98 Calcium 8.6 Troponin I High Sens < 2.7 Triglycerides 91 Cholesterol 157 LDL Cholesterol, Calc 98 HDL Cholesterol 41 <Juancho Bearden MD - Last Filed: 06/01/24 09:30> Discharge Plan Discharge Anticipated Discharge Date/Time: 06/02/24 11:05 <Juancho Bearden MD - Last Filed: 06/01/24 09:30> Patient Disposition: Xfer Other <Juancho Bearden MD - Last Filed: 06/01/24 09:30> Discharge Diagnosis: Transient left sided weakness/migraine equivalent syndrome Partial seizure disorder <Juancho Bearden MD - Last Filed: 06/01/24 09:30> Transient left sided weakness/migraine equivalent syndrome Partial seizure disorder <Blessing Bowen MD - Last Filed: 06/01/24 15:01> Transient left sided weakness/migraine equivalent syndrome Partial seizure disorder <DAVID Hua - Last Filed: 06/02/24 11:08> Referrals: [facility] [Outside] - 1 Week (TRANSFER FOR ACUTE REHAB) Thee Tay MD [Primary Care Provider] - 1 Week Helen Tay MD [Physician] - 2 Weeks <Juancho Bearden MD - Last Filed: 06/01/24 09:30> Discharge Medications: New celecoxib 200 mg Capsule 200 mg PO DAILY Qty: 30 0RF topiramate 25 mg Tablet 25 mg PO BID Qty: 60 0RF cyclobenzaprine 5 mg Tablet 5 mg PO TID PRN (Reason: left sciatica pain) Qty: 30 0RF Continued fluticasone propionate [Flonase Allergy Relief] 50 mcg/actuation spray,suspension 2 spray intranasal BID 90 Days Qty: 16 3RF Rx Instructions: administer into each nostril Dupixent Pen 300 mg/2 mL pen injector 300 mg subcut Q2W 28 Days Qty: 4 12RF Rx Instructions: Initial dose 600 mg, then 300 mg every 2 weeks subcutaneously ipratropium-albuterol 0.5 mg-3 mg(2.5 mg base)/3 mL solution for nebulization 3 ml inhalation Q4-6H PRN (Reason: wheezing) 30 Days Qty: 270 6RF loratadine 10 mg tablet 10 mg PO DAILY 30 Days Qty: 30 6RF montelukast 10 mg tablet 10 mg PO DAILY Qty: 90 0RF dexlansoprazole [Dexilant] 60 mg capsule,biphase delayed releas 60 mg PO DAILY Qty: 90 0RF levothyroxine 150 mcg tablet 150 mcg PO QAM 90 Days Qty: 90 0RF oxcarbazepine 150 mg tablet 150 mg PO BID Qty: 6 0RF bupropion HCl 150 mg tablet sustained-release 12 hr 150 mg PO BID@0800,1200 clonidine HCl 0.1 mg tablet 0.1 mg PO DAILY PRN (Reason: panic attack) lidocaine 4 % Adhesive Patch,Medicated 1 patch TOPICAL DAILY PRN (Reason: Pain) acetaminophen 500 mg Tablet 1,000 mg PO Q6H PRN (Reason: Pain) naproxen sodium [Aleve] 220 mg Tablet 220 mg PO Q12H PRN (Reason: Pain) ibuprofen 200 mg Tablet 600 - 800 mg PO Q8H PRN (Reason: Pain) nystatin 100,000 unit/gram powder 1 appl topical BID PRN (Reason: Rash) simethicone 180 mg capsule 180 mg PO QID PRN (Reason: gas) Rx Instructions: after meals lorazepam [Ativan] 0.5 mg tablet 0.5 mg PO DAILY PRN (Reason: anxiety) bisacodyl [Dulcolax (bisacodyl)] 5 mg tablet,delayed release (DR/EC) 10 mg PO BEDTIME PRN (Reason: Constipation) albuterol sulfate [Ventolin HFA] 90 mcg/actuation HFA aerosol inhaler 2 puff inhalation Q4H PRN (Reason: Shortness Of Breath Or Wheezing) fluticasone propion-salmeterol [Advair Diskus] 500-50 mcg/dose blister with device 1 ea inhalation BID <Juancho Bearden MD - Last Filed: 06/01/24 09:30> Discharge Orders: Discharge Order (Routine); Ordered 06/02/24 Ordered By: Dayami Schulz <Juancho Bearden MD - Last Filed: 06/01/24 09:30> Diet: Advance to usual diet <Juancho Bearden MD - Last Filed: 06/01/24 09:30> Advance to usual diet <Blessing Bowen MD - Last Filed: 06/01/24 15:01> Advance to usual diet <DAVID Hua - Last Filed: 06/02/24 11:08> Activity on Discharge: As tolerated <Juancho Bearden MD - Last Filed: 06/01/24 09:30> As tolerated <Blessing Bowen MD - Last Filed: 06/01/24 15:01> As tolerated <DAVID Hua - Last Filed: 06/02/24 11:08> Stand Alone Forms: Patient Portal Discharge page <Juancho Bearden MD - Last Filed: 06/01/24 09:30> Print Language: Bulgarian <Juancho Bearden MD - Last Filed: 06/01/24 09:30> Care Plan Goals: recovery from left sided weakness due to hemiplegic migraine/partial seizure disorder Take Topamax 25 mg twice daily Avoid operating machinery/do not drive Take Celebrex and Flexeril as needed for left leg pain <Juancho Bearden MD - Last Filed: 06/01/24 09:30> Health Concerns: Continue all home medications as before <Juancho Bearden MD - Last Filed: 06/01/24 09:30> Plan of Treatment: Follow-up with neurologist Dr. Tay call for appointment upon discharge from rehab in 2-4 weeks <Juancho Bearden MD - Last Filed: 06/01/24 09:30> Assessment: see above <Juancho Bearden MD - Last Filed: 06/01/24 09:30>
[2024-05-30] MEDS: Enoxaparin Sodium 40 MG/0.4 ML SYRINGE SUBCUT (15:23)
--- NOTE | 2024-05-30 15:59 | HO.PM.IMPN ---
Subjective Subjective Date of Service: 05/30/24 Interval History: Pt with vague complaining, tinging in back of head, tightness in throat MRI is unremarable Physical Exam Vital Signs: Vital Signs: Last Vital Signs Temp 97.4 F 05/30/24 11:18 Pulse 73 05/30/24 11:18 Resp 16 05/30/24 11:18 BP 134/88 05/30/24 11:18 Pulse Ox 99 05/30/24 11:18 O2 Del Method Room Air 05/30/24 11:18 BMI result Body Mass Index 34.8 Const: Other: General: AO X 3, no acute distress Resp: CTA bilateral CVS: S1,S2,RRR GI: +BS, NT, no distention Skin: No rash Neuro: motor grossly intact Psych: appropriate affect Objective Data Active Medications Acetaminophen (Acetaminophen 325 Mg Tablet) 650 mg PO Q6H PRN PRN Reason: Pain, Mild 1-3,fever,headache Albuterol Sulfate (Albuterol Sulfate 90 Mcg 8 Gm Inhaler) 2 puff INHALE Q4H PRN PRN Reason: Shortness Of Breath Or Wheezing Albuterol/Ipratropium (Albuterol/Iprat 2.5/0.5mg 3 Ml Ampul.Neb) 3 ml INHALE Q4H PRN PRN Reason: wheezing Aspirin (Aspirin 81 Mg Tab.Chew) 81 mg PO DAILY [facility] Last Admin: 05/30/24 09:31 Dose: 81 mg Documented By: BENEDICT Bisacodyl (Bisacodyl 5 Mg Tablet.Dr) 10 mg PO BEDTIME PRN PRN Reason: Constipation Bupropion HCl (Bupropion Hcl Xl 300 Mg Tab.Er.24h) 300 mg PO DAILY [facility] Last Admin: 05/30/24 09:31 Dose: 300 mg Documented By: BENEDICT Calcium Carbonate (Calcium Carbonate 750 Mg Tab.Chew) 750 mg PO Q4H PRN PRN Reason: Heartburn Clonidine HCl (Clonidine Hcl 0.1 Mg Tablet) 0.1 mg PO DAILY PRN; Protocol PRN Reason: panic attack Enoxaparin Sodium (Enoxaparin Sodium 40 Mg/0.4 Ml Syringe) 40 mg SUBCUT Q24H [facility] Last Admin: 05/30/24 15:23 Dose: 40 mg Documented By: JACK Fluticasone Propionate (Fluticasone Propionate Nasal 16 Gm [place]) 2 spray NOSTRIL-B BID [facility] Last Admin: 05/30/24 09:49 Dose: Not Given Documented By: BENEDICT Non-Admin Reason: Med Not Available Fluticasone/Vilanterol (Fluticasone/Vilanterol 200/25 Blst.W.Dev) 1 puff INHALE RDAILY [facility] Last Admin: 05/30/24 08:21 Dose: Not Given Documented By: CARMEN Non-Admin Reason: Patient Asleep Levothyroxine Sodium (Levothyroxine Sodium 150 Mcg Tablet) 150 mcg PO DAILY@0600 [facility] Last Admin: 05/30/24 06:20 Dose: 150 mcg Documented By: DEREK Loratadine (Loratadine 10 Mg Tablet) 10 mg PO DAILY [facility] Last Admin: 05/30/24 09:30 Dose: 10 mg Documented By: BENEDICT Lorazepam (Lorazepam 0.5 Mg Tablet) 0.5 mg PO DAILY PRN PRN Reason: anxiety Magnesium Hydroxide (Milk Of Magnesia 30 Ml Oral.Susp) 30 ml PO DAILY PRN PRN Reason: Constipation Melatonin (Melatonin 3 Mg Tablet) 6 mg PO BEDTIME PRN PRN Reason: Insomnia Montelukast Sodium (Montelukast Sodium 10 Mg Tablet) 10 mg PO DAILY [facility] Last Admin: 05/30/24 09:31 Dose: 10 mg Documented By: BENEDICT Naproxen (Naproxen 250 Mg Tablet) 250 mg PO Q12H PRN PRN Reason: Pain, Mild 1-3,fever,headache Last Admin: 05/30/24 01:40 Dose: 250 mg Documented By: KAJAL Omeprazole (Omeprazole 40 Mg Capsule.Dr) 40 mg PO DAILY@0630 [facility] Last Admin: 05/30/24 06:44 Dose: 40 mg Documented By: DEREK Ondansetron HCl (Ondansetron Hcl 4 Mg/2 Ml Vial) 4 mg IVPUSH Q8H PRN PRN Reason: Nausea and Vomiting Oxcarbazepine (Oxcarbazepine 150 Mg Tablet) 150 mg PO BID [facility] Last Admin: 05/30/24 09:31 Dose: 150 mg Documented By: BENEDICT Simethicone (Simethicone 80 Mg Tab.Chew) 160 mg PO QID PRN PRN Reason: gas Sodium Chloride (0.9 % Sodium Chloride Flush 3 Ml Syringe) [facility] Last Admin: 05/30/24 15:24 Dose: 3 ml Documented By: JACK Labs 05/29/24 13:34 05/29/24 13:34 Labs: Laboratory Results - last 24 hr 05/29/24 13:13 Whole Blood PT 12.0 Whole Blood INR 1.0 Assessment and Plan (1) Left-sided weakness: Status: Acute Plan Pt is a 54-year-old female with a PMH significant for?severe persistent asthma with environmental allergies, carotid aneurysm s/p coiling in 2001 at [facility], TIA, fibromyalgia, hypothyroidism, multiple joint pain, migraines PTSD, anxiety, and panic disorder who presents to the ED with?left-sided deficits. Pt will be admitted to the hospital under observation for treatment and further evaluation of left-sided deficits concerning for possible TIA vs seizure vs complex migraine. Left-sided deficits Pt complaining of difficulty thinking and speaking, headache radiating down left arm x3 days; blurriness and difficulty typing with fall at home this morning At time of presentation to the ED had NIH stroke scale of 6 due to left-sided weakness, positive pronator drift, and left-sided facial droop, now resolved after [address] of head and CTA of head/neck negative, MRI negative Neuro think possible hemiplegic maigraine and recommends EEG and if negative, start verapamil 40 bid, EEG not done today Asthma Not in acute exacerbation Continue home inhalers Continue loratadine, montelukast Hypothyroidism Continue levothyroxine Mood disorder Continue bupropion, clonidine, lorazepam, and oxcarbazepine Full Code DVT Prophylaxis: Lovenox Pt will be admitted to the hospital under observation for treatment and further evaluation of left-sided deficits now resolved concerning for TIA vs seizure vs complex migraine. Quality Stroke Does the patient have a stroke diagnosis?: No Reason for No Anti-thrombotic by Day Two: Contraindicated (Unclear last known well time.) VTE Prior VTE?: No VTE Risk Level:: Medical - moderate - high VTE Device Contraindication: Treatment Not Indicated VTE Drug Contraindication: N/A - Med Ordered
[2024-05-30 16:00] VITALS: BP 148/72; PULSE 74; RESP 18; TEMP 36.6; O2SAT 96
[2024-05-30] MEDS: Acetaminophen 325 MG TABLET 650 MG PO (18:37)
[2024-05-30] MEDS: ondansetron HCL 4 MG/2 ML VIAL IVPUSH (18:37)
[2024-05-30 19:15] VITALS: BP 138/67; PULSE 80; RESP 14; TEMP 37.4; O2SAT 97
[2024-05-30] MEDS: LORazepam 0.5 MG TABLET PO (20:07)
[2024-05-30] MEDS: Melatonin 3 MG TABLET 6 MG PO (20:07)
[2024-05-30] MEDS: bisacodyL 5 MG TABLET.DR 10 MG PO (20:11)
[2024-05-30] MEDS: Simethicone 80 MG TAB.CHEW 160 MG PO (20:11)
[2024-05-30 23:00] VITALS: BP 118/75; PULSE 79; RESP 20; TEMP 36.4; O2SAT 96
[2024-05-31 03:16] VITALS: BP 105/56; PULSE 75; RESP 20; TEMP 36.6; O2SAT 98
[2024-05-31] MEDS: Levothyroxine Sodium 150 MCG TABLET PO (05:23)
[2024-05-31] MEDS: Omeprazole 40 MG CAPSULE.DR PO (05:23)
[2024-05-31] MEDS: Fluticasone/Vilanterol 200/25 BLST.W.DEV 1 PUFF INHALE (07:36)
[2024-05-31 07:38] VITALS: BP 146/78; PULSE 72; PULSE 74; RESP 16; TEMP 36.4; O2SAT 98
--- NOTE | 2024-05-31 08:10 | MHC.CM.PN ---
Addendum entered by Kristy Flores RN 05/31/24 13:32: EEG REPORT STILL PENDING AT TIME OF THIS ADDENDUM, PT OFF UNIT FOR TESTING. Addendum entered by Kristy Flores RN 05/31/24 13:29: CM MET W/PT TO DISCUSS DISPO IN CASE NO ACUTE REHAB WILL TAKE PT, PT REPORTS SHE IS AGREEABLE TO STR IF SHE NEEDS TO HOWEVER DO[facility] NOT WANT [facility] OR [facility] TO PL[facility] REFERRAL IF NEEDED. Original Note: EMR REVIEWED, EE PENDING, P.T. RECOMMENDING ACUTE REHAB, PT AGREEABLE SHE AND S.O. DON'T WANT IN HOME SERIVCES D/T MULTIPLE BIRDS IN HOME THAT ARE NOT CAGED AND ONE PARAKEET THAT WILL DIVE BOMB PT AND OTHERS, NO PREFERENCE FOR [facility] DECLINED, [facility] REVIEWING AND [facility] AWAITING EEG FOR REVIEW, CM WILL CONT TO FOLLOW DC NEEDS.
[2024-05-31] MEDS: 0.9 % Sodium Chloride Flush 3 ML SYRINGE IVFLUSH ×3 (08:49→20:22)
[2024-05-31] MEDS: Loratadine 10 MG TABLET PO (08:52)
[2024-05-31] MEDS: buPROPion HCl XL 300 MG TAB.ER.24H PO (08:52)
[2024-05-31] MEDS: OXcarbazepine 150 MG TABLET PO ×2 (08:52→20:21)
[2024-05-31] MEDS: Aspirin 81 MG TAB.CHEW PO (08:52)
[2024-05-31] MEDS: Montelukast Sodium 10 MG TABLET PO (08:52)
[2024-05-31 10:55] VITALS: BP 124/82; PULSE 113; RESP 16; TEMP 36.6; O2SAT 96
--- NOTE | 2024-05-31 14:22 | HO.PM.IMPN ---
Subjective Subjective Date of Service: 05/31/24 Interval History: Followed for left-sided weakness headache. Today patient complaining of left shoulder pain radiating from shoulder to arm and also left hip pain radiating to leg with pins and needles, also complaining of intermittent brain fog, intermittent lightheadedness Denies headache, no fevers, no chills tolerating diet with no nausea, no vomiting or abdominal pain. Review of Systems All other system reviewed and are negative Physical Exam Vital Signs: Vital Signs: Last Vital Signs Temp 97.9 F 05/31/24 10:55 Pulse 113 H 05/31/24 10:55 Resp 16 05/31/24 10:55 BP 124/82 05/31/24 10:55 Pulse Ox 96 05/31/24 10:55 O2 Del Method Room Air 05/31/24 10:55 BMI result Body Mass Index 34.8 Const: Other: General awake alert x3, resting comfortably in no acute distress. Neck supple no JVD. CVS regular rate rhythm, Respiratory lungs clear to auscultation, no respiratory distress, no wheeze, no rhonchi. Gastrointestinal abdomen soft, non tender, bowel sounds audible, no guarding , no rigidity. Extremities no edema. 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 , normal sensation dorsum of feet Skin no rash Appropriate affect Objective Data Active Medications Acetaminophen (Acetaminophen 325 Mg Tablet) 650 mg PO Q6H PRN PRN Reason: Pain, Mild 1-3,fever,headache Last Admin: 05/30/24 18:37 Dose: 650 mg Documented By: JACK Albuterol Sulfate (Albuterol Sulfate 90 Mcg 8 Gm Inhaler) 2 puff INHALE Q4H PRN PRN Reason: Shortness Of Breath Or Wheezing Albuterol/Ipratropium (Albuterol/Iprat 2.5/0.5mg 3 Ml Ampul.Neb) 3 ml INHALE Q4H PRN PRN Reason: wheezing Aspirin (Aspirin 81 Mg Tab.Chew) 81 mg PO DAILY [facility] Last Admin: 05/31/24 08:52 Dose: 81 mg Documented By: CECILIA Bisacodyl (Bisacodyl 5 Mg Tablet.) 10 mg PO BEDTIME PRN PRN Reason: Constipation Last Admin: 05/30/24 20:11 Dose: 10 mg Documented By: NICOLE Bupropion HCl (Bupropion Hcl Xl 300 Mg Tab.Er.24h) 300 mg PO DAILY [facility] Last Admin: 05/31/24 08:52 Dose: 300 mg Documented By: CECILIA Calcium Carbonate (Calcium Carbonate 750 Mg Tab.Chew) 750 mg PO Q4H PRN PRN Reason: Heartburn Celecoxib (Celecoxib 200 Mg Capsule) 200 mg PO DAILY [facility] Clonidine HCl (Clonidine Hcl 0.1 Mg Tablet) 0.1 mg PO DAILY PRN; Protocol PRN Reason: panic attack Cyclobenzaprine HCl (Cyclobenzaprine Hcl 5 Mg Tablet) 5 mg PO TID PRN PRN Reason: left sciatica pain Enoxaparin Sodium (Enoxaparin Sodium 40 Mg/0.4 Ml Syringe) 40 mg SUBCUT Q24H [facility] Last Admin: 05/30/24 15:23 Dose: 40 mg Documented By: JACK Fluticasone Propionate (Fluticasone Propionate Nasal 16 Gm [place]) 2 spray NOSTRIL-B BID [facility] Last Admin: 05/31/24 08:53 Dose: Not Given Documented By: CECILIA Non-Admin Reason: Med Not Available Fluticasone/Vilanterol (Fluticasone/Vilanterol 200/25 Blst.W.Dev) 1 puff INHALE RDAILY [facility] Last Admin: 05/31/24 07:36 Dose: 1 puff Documented By: MARY ANN Levothyroxine Sodium (Levothyroxine Sodium 150 Mcg Tablet) 150 mcg PO DAILY@0600 [facility] Last Admin: 05/31/24 05:23 Dose: 150 mcg Documented By: NICOLE Loratadine (Loratadine 10 Mg Tablet) 10 mg PO DAILY [facility] Last Admin: 05/31/24 08:52 Dose: 10 mg Documented By: CECILIA Lorazepam (Lorazepam 0.5 Mg Tablet) 0.5 mg PO DAILY PRN PRN Reason: anxiety Last Admin: 05/30/24 20:07 Dose: 0.5 mg Documented By: NICOLE Magnesium Hydroxide (Milk Of Magnesia 30 Ml Oral.Susp) 30 ml PO DAILY PRN PRN Reason: Constipation Melatonin (Melatonin 3 Mg Tablet) 6 mg PO BEDTIME PRN PRN Reason: Insomnia Last Admin: 05/30/24 20:07 Dose: 6 mg Documented By: NICOLE Montelukast Sodium (Montelukast Sodium 10 Mg Tablet) 10 mg PO DAILY [facility] Last Admin: 05/31/24 08:52 Dose: 10 mg Documented By: CECILIA Omeprazole (Omeprazole 40 Mg Capsule.Dr) 40 mg PO DAILY@0630 [facility] Last Admin: 05/31/24 05:23 Dose: 40 mg Documented By: NICOLE Ondansetron HCl (Ondansetron Hcl 4 Mg/2 Ml Vial) 4 mg IVPUSH Q8H PRN PRN Reason: Nausea and Vomiting Last Admin: 05/30/24 18:37 Dose: 4 mg Documented By: JACK Oxcarbazepine (Oxcarbazepine 150 Mg Tablet) 150 mg PO BID [facility] Last Admin: 05/31/24 08:52 Dose: 150 mg Documented By: CECILIA Simethicone (Simethicone 80 Mg Tab.Chew) 160 mg PO QID PRN PRN Reason: gas Last Admin: 05/30/24 20:11 Dose: 160 mg Documented By: NICOLE Sodium Chloride (0.9 % Sodium Chloride Flush 3 Ml Syringe) 3 ml IVFLUSH QSHIFT [facility] Last Admin: 05/31/24 08:49 Dose: 3 ml Documented By: CECILIA Labs 05/29/24 13:34 05/29/24 13:34 Assessment and Plan (1) Left-sided weakness: Status: Acute (2) Multiple joint pain: Status: Acute Plan 54-year-old female with a PMH significant for?severe persistent asthma with environmental allergies, carotid aneurysm s/p coiling in 2001 at [facility], TIA, fibromyalgia, hypothyroidism, multiple joint pain, migraines PTSD, anxiety, and panic disorder who presents to the ED with?left-sided deficits. Pt will be admitted to the hospital under observation for treatment and further evaluation of left-sided deficits concerning for possible TIA vs seizure vs complex migraine. Left-sided deficits complaining of intermittent lightheadedness, brain fog, complaining of left leg pain , chronic left shoulder pain with radiation to left arm Previously diagnosed to have left sciatica and fibromyalgia At time of presentation to the ED had NIH stroke scale of 6 due to left-sided weakness, positive pronator drift, and left-sided facial droop, CT of head and CTA of head/neck negative, MRI negative Neuro think possible hemiplegic maigraine and recommends EEG and if negative, start verapamil 40 bid, EEG done report pending PT recommends acute rehab dependency case manager arranging for safe disposition add Celebrex 200 daily and as needed Flexeril History of severe persistent Asthma Not in acute exacerbation,Continue home inhalers, loratadine, and montelukast Hypothyroidism Continue levothyroxine Mood disorder Continue bupropion, clonidine, lorazepam, and oxcarbazepine Full Code DVT Prophylaxis: Lovenox Pt will require continued inpatient hospitalization for further workup including EEG and safe disposition Quality Stroke Does the patient have a stroke diagnosis?: No Reason for No Anti-thrombotic by Day Two: Contraindicated (Unclear last known well time.) VTE Prior VTE?: No VTE Risk Level:: Medical - moderate - high VTE Device Contraindication: Treatment Not Indicated VTE Drug Contraindication: N/A - Med Ordered
[2024-05-31] MEDS: Celecoxib 200 MG CAPSULE PO (14:35)
[2024-05-31 15:10] VITALS: BP 140/95; PULSE 92; RESP 18; TEMP 36.6; O2SAT 96
[2024-05-31] MEDS: Enoxaparin Sodium 40 MG/0.4 ML SYRINGE SUBCUT (16:06)
[2024-05-31 20:00] VITALS: BP 166/80; PULSE 65; RESP 16; TEMP 36.6; O2SAT 97
[2024-05-31] MEDS: Cyclobenzaprine HCl 5 MG TABLET PO (20:20)
[2024-05-31] MEDS: LORazepam 0.5 MG TABLET PO (20:20)
[2024-05-31] MEDS: Melatonin 3 MG TABLET 6 MG PO (20:20)
[2024-05-31] MEDS: Fluticasone Propionate Nasal 16 GM SPRAY 2 SPRAY NOSTRIL-B (20:21)
[2024-05-31 23:28] VITALS: BP 137/82; PULSE 80; RESP 16; TEMP 36.2; O2SAT 98
[2024-06-01] VITALS (9 sets, daily range): BP systolic 80–135; BP diastolic 50–75; PULSE 67–91; RESP 17–19; TEMP 36.2–36.7; O2SAT 74–98
[2024-06-01] MEDS: Omeprazole 40 MG CAPSULE.DR PO (05:49)
[2024-06-01] MEDS: Levothyroxine Sodium 150 MCG TABLET PO (05:50)
[2024-06-01] MEDS: Montelukast Sodium 10 MG TABLET PO (07:53)
[2024-06-01] MEDS: 0.9 % Sodium Chloride Flush 3 ML SYRINGE IVFLUSH ×2 (07:53→16:21)
[2024-06-01] MEDS: Fluticasone Propionate Nasal 16 GM SPRAY 2 SPRAY NOSTRIL-B ×2 (07:53→20:03)
[2024-06-01] MEDS: Topiramate 25 MG TABLET PO ×2 (07:53→20:03)
[2024-06-01] MEDS: Loratadine 10 MG TABLET PO (07:53)
[2024-06-01] MEDS: buPROPion HCl XL 300 MG TAB.ER.24H PO (07:53)
[2024-06-01] MEDS: Aspirin 81 MG TAB.CHEW PO (07:53)
[2024-06-01] MEDS: OXcarbazepine 150 MG TABLET PO ×2 (07:53→20:03)
[2024-06-01] MEDS: Celecoxib 200 MG CAPSULE PO (07:53)
[2024-06-01] MEDS: Simethicone 80 MG TAB.CHEW 160 MG PO (08:02)
[2024-06-01] MEDS: Milk of Magnesia 30 ML ORAL.SUSP PO (08:03)
[2024-06-01] MEDS: Fluticasone/Vilanterol 200/25 BLST.W.DEV 1 PUFF INHALE (08:15)
--- NOTE | 2024-06-01 08:42 | MHC.CM.PN ---
Addendum entered by Kristy Flores RN 06/01/24 11:29: [facility] ADMISSIONS CAPPED D/T SHORT STAFFING, CM HAS SENT EEG/NEURO TO [facility] AND REQUESTED THEY REVIEW AND GO FOR INS AUTH, CM WILL CONT TO FOLLOW. Addendum entered by Kristy Flores RN 06/01/24 10:26: EEG AND ADDENDED NEURO CONSULT SENT TO [facility] IS PT'S PREFERRED, CM HAS REQUESTED THEY GO FOR AUTH. Original Note: EMR REVIEWED, CM STILL AWAITING RESULTS OF EEG TO SEND TO [facility] FOR REVIEW, OTHER UPDATES SENT VIA [facility], SNF REF ALSO CREATED AND PER PT NO [facility] OTHERWISE WOULD LIKE TO REMAIN CLOSE TO [facility] [facility], CM WILL CONT TO [facility] NEEDS.
--- NOTE | 2024-06-01 15:01 | HO.PM.IMPN ---
Subjective Subjective Date of Service: 06/01/24 Interval History: Being followed for left leg pain, headache and left-sided weakness. Left-sided weakness resolved Responding to Celebrex and as needed Flexeril for left leg pain. Feels better denies headache, no dizziness, no visual symptoms. Does not have driving license Review of Systems All other system reviewed and are negative Physical Exam Vital Signs: Vital Signs: Last Vital Signs Temp 97.6 F 06/01/24 12:00 Pulse 91 06/01/24 12:00 Resp 19 06/01/24 12:00 BP 130/75 06/01/24 12:00 Pulse Ox 97 06/01/24 12:00 O2 Del Method Room Air 06/01/24 12:00 BMI result Body Mass Index 34.8 Const: Other: General awake alert x3, resting comfortably in no acute distress. Neck supple no JVD. CVS regular rate rhythm, Respiratory lungs clear to auscultation, no respiratory distress, no wheeze, no rhonchi. Gastrointestinal abdomen soft, non tender, bowel sounds audible, no guarding , no rigidity. Extremities no edema. 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 , normal sensation dorsum of feet Skin no rash Appropriate affect Objective Data Active Medications Acetaminophen (Acetaminophen 325 Mg Tablet) 650 mg PO Q6H PRN PRN Reason: Pain, Mild 1-3,fever,headache Last Admin: 05/30/24 18:37 Dose: 650 mg Documented By: JACK Albuterol Sulfate (Albuterol Sulfate 90 Mcg 8 Gm Inhaler) 2 puff INHALE Q4H PRN PRN Reason: Shortness Of Breath Or Wheezing Albuterol/Ipratropium (Albuterol/Iprat 2.5/0.5mg 3 Ml Ampul.Neb) 3 ml INHALE Q4H PRN PRN Reason: wheezing Aspirin (Aspirin 81 Mg Tab.Chew) 81 mg PO DAILY [facility] Last Admin: 06/01/24 07:53 Dose: 81 mg Documented By: ANAYELI Bisacodyl (Bisacodyl 5 Mg Tablet.Dr) 10 mg PO BEDTIME PRN PRN Reason: Constipation Last Admin: 05/30/24 20:11 Dose: 10 mg Documented By: NICOLE Bupropion HCl (Bupropion Hcl Xl 300 Mg Tab.Er.24h) 300 mg PO DAILY [facility] Last Admin: 06/01/24 07:53 Dose: 300 mg Documented By: ANAYELI Calcium Carbonate (Calcium Carbonate 750 Mg Tab.Chew) 750 mg PO Q4H PRN PRN Reason: Heartburn Celecoxib (Celecoxib 200 Mg Capsule) 200 mg PO DAILY [facility] Last Admin: 06/01/24 07:53 Dose: 200 mg Documented By: ANAYELI Clonidine HCl (Clonidine Hcl 0.1 Mg Tablet) 0.1 mg PO DAILY PRN; Protocol PRN Reason: panic attack Cyclobenzaprine HCl (Cyclobenzaprine Hcl 5 Mg Tablet) 5 mg PO TID PRN PRN Reason: left sciatica pain Last Admin: 05/31/24 20:20 Dose: 5 mg Documented By: JOSE Enoxaparin Sodium (Enoxaparin Sodium 40 Mg/0.4 Ml Syringe) 40 mg SUBCUT Q24H [facility] Last Admin: 05/31/24 16:06 Dose: 40 mg Documented By: CECILIA Fluticasone Propionate (Fluticasone Propionate Nasal 16 Gm [place]) 2 spray NOSTRIL-B BID [facility] Last Admin: 06/01/24 07:53 Dose: 2 spray Documented By: ANAYELI Fluticasone/Vilanterol (Fluticasone/Vilanterol 200/25 Blst.W.Dev) 1 puff INHALE RDAILY [facility] Last Admin: 06/01/24 08:15 Dose: 1 puff Documented By: MYRA Levothyroxine Sodium (Levothyroxine Sodium 150 Mcg Tablet) 150 mcg PO DAILY@0600 [facility] Last Admin: 06/01/24 05:50 Dose: 150 mcg Documented By: JOSE Loratadine (Loratadine 10 Mg Tablet) 10 mg PO DAILY [facility] Last Admin: 06/01/24 07:53 Dose: 10 mg Documented By: ANAYELI Lorazepam (Lorazepam 0.5 Mg Tablet) 0.5 mg PO DAILY PRN PRN Reason: anxiety Last Admin: 05/31/24 20:20 Dose: 0.5 mg Documented By: JOSE Magnesium Hydroxide (Milk Of Magnesia 30 Ml Oral.Susp) 30 ml PO DAILY PRN PRN Reason: Constipation Last Admin: 06/01/24 08:03 Dose: 30 ml Documented By: ANAYELI Melatonin (Melatonin 3 Mg Tablet) 6 mg PO BEDTIME PRN PRN Reason: Insomnia Last Admin: 05/31/24 20:20 Dose: 6 mg Documented By: JOSE Montelukast Sodium (Montelukast Sodium 10 Mg Tablet) 10 mg PO DAILY [facility] Last Admin: 06/01/24 07:53 Dose: 10 mg Documented By: ANAYELI Omeprazole (Omeprazole 40 Mg Capsule.Dr) 40 mg PO DAILY@0630 [facility] Last Admin: 06/01/24 05:49 Dose: 40 mg Documented By: JOSE Ondansetron HCl (Ondansetron Hcl 4 Mg/2 Ml Vial) 4 mg IVPUSH Q8H PRN PRN Reason: Nausea and Vomiting Last Admin: 05/30/24 18:37 Dose: 4 mg Documented By: JACK Oxcarbazepine (Oxcarbazepine 150 Mg Tablet) 150 mg PO BID [facility] Last Admin: 06/01/24 07:53 Dose: 150 mg Documented By: ANAYELI Simethicone (Simethicone 80 Mg Tab.Chew) 160 mg PO QID PRN PRN Reason: gas Last Admin: 06/01/24 08:02 Dose: 160 mg Documented By: ANAYELI Sodium Chloride (0.9 % Sodium Chloride Flush 3 Ml Syringe) 3 ml IVFLUSH QSHIFT [facility] Last Admin: 06/01/24 07:53 Dose: 3 ml Documented By: ANAYELI Topiramate (Topiramate 25 Mg Tablet) 25 mg PO BID [facility] Last Admin: 06/01/24 07:53 Dose: 25 mg Documented By: ANAYELI Labs 05/29/24 13:34 05/29/24 13:34 Assessment and Plan (1) Left-sided weakness: Status: Acute Plan 54-year-old female with a PMH significant for?severe persistent asthma with environmental allergies, carotid aneurysm s/p coiling in 2001 at [facility], TIA, fibromyalgia, hypothyroidism, multiple joint pain, migraines PTSD, anxiety, and panic disorder who presents to the ED with?left-sided deficits. Pt will be admitted to the hospital under observation for treatment and further evaluation of left-sided deficits concerning for possible TIA vs seizure vs complex migraine. Left-sided deficits intermittent lightheadedness, brain fog, left leg pain , chronic left shoulder pain with radiation to left arm Previously diagnosed to have left sciatica and fibromyalgia At time of presentation to the ED had NIH stroke scale of 6 due to left-sided weakness, positive pronator drift, and left-sided facial droop, CT of head and CTA of head/neck negative, MRI negative Neuro thought possible hemiplegic maigraine and recommends EEG EEG showed: Rare bitemporal sharp waves, neuro recommend Topamax 25 mg b.i.d. to cover migraine and seizure Recommend no driving or operating machine PT recommends acute rehab Continue Celebrex 200 daily and as needed Flexeril [facility] accepted patient waiting for auth History of severe persistent Asthma Not in acute exacerbation,Continue home inhalers, loratadine, and montelukast Hypothyroidism Continue levothyroxine Mood disorder Continue bupropion, clonidine, lorazepam, and oxcarbazepine Full Code DVT Prophylaxis: Lovenox Pt will require continued inpatient hospitalization for safe disposition and monitoring for recurrent symptoms. Quality Stroke Does the patient have a stroke diagnosis?: No Reason for No Anti-thrombotic by Day Two: Contraindicated (Unclear last known well time.) VTE Prior VTE?: No VTE Risk Level:: Medical - moderate - high VTE Device Contraindication: Treatment Not Indicated VTE Drug Contraindication: N/A - Med Ordered
[2024-06-01] MEDS: Enoxaparin Sodium 40 MG/0.4 ML SYRINGE SUBCUT (16:21)
[2024-06-01] MEDS: cloNIDine HCL 0.1 MG TABLET PO (17:02)
[2024-06-01] MEDS: Melatonin 3 MG TABLET 6 MG PO (20:03)
[2024-06-01] MEDS: LORazepam 0.5 MG TABLET PO (20:03)
[2024-06-01] MEDS: bisacodyL 5 MG TABLET.DR 10 MG PO (20:03)
[2024-06-02 04:00] VITALS: BP 109/52; PULSE 75; RESP 18; TEMP 36.5; O2SAT 97
[2024-06-02] MEDS: Levothyroxine Sodium 150 MCG TABLET PO (05:21)
[2024-06-02] MEDS: Omeprazole 40 MG CAPSULE.DR PO (05:21)
[2024-06-02] MEDS: Loratadine 10 MG TABLET PO (07:17)
[2024-06-02] MEDS: Aspirin 81 MG TAB.CHEW PO (07:17)
[2024-06-02] MEDS: Celecoxib 200 MG CAPSULE PO (07:17)
[2024-06-02] MEDS: Fluticasone Propionate Nasal 16 GM SPRAY 2 SPRAY NOSTRIL-B (07:17)
[2024-06-02] MEDS: Montelukast Sodium 10 MG TABLET PO (07:18)
[2024-06-02] MEDS: buPROPion HCl XL 300 MG TAB.ER.24H PO (07:18)
[2024-06-02] MEDS: Topiramate 25 MG TABLET PO (07:18)
[2024-06-02] MEDS: OXcarbazepine 150 MG TABLET PO (07:18)
[2024-06-02 07:40] VITALS: BP 124/78; PULSE 83; RESP 14; TEMP 36.4
[2024-06-02] MEDS: Fluticasone/Vilanterol 200/25 BLST.W.DEV 1 PUFF INHALE (08:34)
[2024-06-02 08:35] VITALS: PULSE 81; RESP 18; O2SAT 97
--- NOTE | 2024-06-02 10:46 | MHC.CM.PN ---
DP: PT HAS BEEN MEDICALLY CLEARED FOR DC TO ACUTE REHAB AT [facility]. CENTER HAS OBTAINED INSURANCE AUTH. S TRANSPORT BOOKED FOR 12 NOON VIA [place]. RN/MD NOTIFIED. PT AWARE AND AGREEABLE TO PLAN.
[2024-06-02 10:55] VITALS: BP 131/75; PULSE 96; RESP 16; TEMP 36.5; O2SAT 97
== END 2024-06-02 12:58 | disposition other institution (70) ==
LOC: HO.ED 14:45 → HO.EDOVER 16:25 → HO.IMC 05-30 01:32
PROVIDERS: Physician Assistant; Admitting Provider Student in an Organized Health Care Education/Training Program; Emergency Provider Emergency Medicine; PCP Internal Medicine; Visit Provider Physician Assistant Medical
DX: R53.1 Weakness (principal); R29.810 Facial weakness; R47.81 Slurred speech; R51.9 Headache, unspecified; J45.50 Severe persistent asthma, uncomplicated; E03.9 Hypothyroidism, unspecified; F39 Unspecified mood [affective] disorder; H53.8 Other visual disturbances; Z86.73 Personal history of transient ischemic attack (TIA), and cerebral infarction without residual deficits
CPT/HCPCS: 36415; 70450; 70496; 70498; 70551; 80048; 80061; 82947; 84484; 85025; 85610; 85730; 93005; 94640; 95816; 96372; 96374; 97116; 97162; 97166; 97530; 97535; 99222; 99285; J1650; J2405; Q9967

== ENCOUNTER → 2024-05-29 13:10 | Outpatient (BNV) | payer OTHER, SELFPAY | PROVIDERS: Emergency Provider Emergency Medicine; PCP Internal Medicine; Visit Provider Radiology Diagnostic Radiology | DX: I69.392 Facial weakness following cerebral infarction (principal); I72.0 Aneurysm of carotid artery | CPT/HCPCS: 70450; 70496; 70498 ==

== ENCOUNTER 2024-05-29 16:09 | Outpatient (BNV) | payer OTHER, SELFPAY | END 2024-05-30 13:00 | PROVIDERS: Admitting Provider Student in an Organized Health Care Education/Training Program; Emergency Provider Emergency Medicine; PCP Internal Medicine; Visit Provider Radiology Diagnostic Radiology | DX: R53.1 Weakness (principal) | CPT/HCPCS: 70551 ==

== ENCOUNTER → 2024-05-29 16:09 | Outpatient (BNV) | payer OTHER, SELFPAY | PROVIDERS: Admitting Provider Student in an Organized Health Care Education/Training Program; Emergency Provider Emergency Medicine; PCP Internal Medicine; Visit Provider Student in an Organized Health Care Education/Training Program | DX: R53.1 Weakness (principal); M25.552 Pain in left hip; M25.512 Pain in left shoulder | CPT/HCPCS: 99222; 99232; 99239 ==

== ENCOUNTER → 2024-05-29 16:09 | Outpatient (BNV) | payer OTHER, SELFPAY | PROVIDERS: Admitting Provider Student in an Organized Health Care Education/Training Program; Emergency Provider Emergency Medicine; PCP Internal Medicine; Visit Provider Psychiatry & Neurology Neurology | DX: G81.94 Hemiplegia, unspecified affecting left nondominant side (principal) | CPT/HCPCS: 99222 ==

== ENCOUNTER 2024-06-16 08:16 | Outpatient (AMB) | payer OTHER, SELFPAY ==
--- OUTSIDE RECORDS SUMMARY | 2024-06-16 08:24 | XMS_ITS | Encounter Summary ---
Author Organization [facility] Address [address] [place] [address] Care Team Providers Care Apprentice Funeral Director Name Role Phone Braydon Sykes MD Primary Care Provider Encounter Details Date Type Department Care Team (Late st Contact Info) Description 06/03/2024 Lab Requisition [facility] - Main Lab [address] [facility] [place] [address] Braydon Sykes MD [address] [place] [phone] Encounter for other general examination Social History Tobacco Use Types Packs/Day Years Used Date Smoking Tobacco: Never Assessed Comments Unknown Sex and Gender Information Value Date Recorded Sex Assigned at Not on file Legal Sex Female 12:00 PM EST Gender Identity Not on file Sexual Orientation Not on file documented as of this encounter Plan of Treatment Not on file documented as of this encounter Procedures Procedure Name Priority Date/Time Associated Diagnosis Comments CBC WITH AUTO DIFFERENTIAL Routine 06/03/2024 6:18 AM EST Encounter for other general examination CBC AND DIFFERENTIAL Routine 06/03/2024 6:18 AM EST Encounter for other general examination MAGNESIUM Routine 06/03/2024 6:18 AM EST Encounter for other general examination COMPREHENSIVE METABOLIC PANEL Routine 06/03/2024 6:18 AM EST Encounter for other general examination documented in this encounter Results * (ABNORMAL) CBC auto differential (06/03/2024 6:18 AM EST) WBC 5.6 4.8 - 10.8 K/[facility] LAB HEMETOLOGY METHOD 06/03/2024 11:27 AM [facility] LAB RBC 4.80 3.80 - 4.80 M/[facility] LAB HEMETOLOGY METHOD 06/03/2024 11:27 AM [facility] LAB Hemoglobin 12.8 11.5 - 16.0 g/dL LAB HEMETOLOGY METHOD 06/03/2024 11:27 AM [facility] LAB Hematocrit 39.8 35.0 - 47.0 % LAB HEMETOLOGY METHOD 06/03/2024 11:27 AM [facility] LAB MCV 82.2 79.0 - 98.0 FL LAB HEMETOLOGY METHOD 06/03/2024 11:27 AM [facility] LAB MCH 26.4(L) 27.0 - 32.0 pcg LAB HEMETOLOGY METHOD 06/03/2024 11:27 AM [facility] LAB MCHC 32.2 32.0 - 37.0 g/dL LAB HEMETOLOGY METHOD 06/03/2024 11:27 AM [facility] LAB RDW 14.2 11.0 - 15.0 % LAB HEMETOLOGY METHOD 06/03/2024 11:27 AM [facility] LAB Platelets 199 130 - 400 K/[facility] LAB HEMETOLOGY METHOD 06/03/2024 11:27 AM [facility] LAB MPV 10.8 7.0 - 11.0 FL LAB HEMETOLOGY METHOD 06/03/2024 11:27 AM [facility] LAB NRBC 0.0 <1.0 % LAB HEMETOLOGY METHOD 06/03/2024 11:27 AM [facility] LAB NRBC Absolute 0.00 <0.10 K/[facility] LAB HEMETOLOGY METHOD 06/03/2024 11:27 AM [facility] LAB Neutrophils Relative 64.3 % LAB HEMETOLOGY METHOD 06/03/2024 11:27 AM [facility] LAB Lymphocytes Relative 19.3 % LAB HEMETOLOGY METHOD 06/03/2024 11:27 AM [facility] LAB Monocytes Relative 13.5 % LAB HEMETOLOGY METHOD 06/03/2024 11:27 AM [facility] LAB Eosinophils Relative 2.0 % LAB HEMETOLOGY METHOD 06/03/2024 11:27 AM [facility] LAB Basophils Relative 0.5 % LAB HEMETOLOGY METHOD 06/03/2024 11:27 AM [facility] LAB Immature Granulocytes Relative 0.4 % LAB HEMETOLOGY METHOD 06/03/2024 11:27 AM [facility] LAB Neutrophils Absolute 3.63 1.50 - 7.00 K/mcL LAB HEMETOLOGY METHOD 06/03/2024 11:27 AM [facility] LAB Lymphocytes Absolute 1.09 1.00 - 5.00 K/mcL LAB HEMETOLOGY METHOD 06/03/2024 11:27 AM [facility] LAB Monocytes Absolute 0.76 0.20 - 1.00 K/mcL LAB HEMETOLOGY METHOD 06/03/2024 11:27 AM [facility] LAB Eosinophils Absolute 0.11 0.00 - 0.50 K/mcL LAB HEMETOLOGY METHOD 06/03/2024 11:27 AM [facility] LAB Basophils Absolute 0.03 0.00 - 0.20 K/mcL LAB HEMETOLOGY METHOD 06/03/2024 11:27 AM [facility] LAB Immature Granulocytes Absolute 0.02 0.00 - 0.03 K/mcL LAB HEMETOLOGY METHOD 06/03/2024 11:27 AM [facility] LAB Blood Venous blood specimen / Unknown Venipuncture / Unknown 06/03/2024 6:18 AM EST 06/03/2024 10:27 AM EST Braydon Sykes MD LAB BLOOD ORDERABLES Final Res ult Performing Organization Address [facility]/ZIP Co de Phone Number [facility] [address] [place] [address], [place] [phone] * Magnesium (06/03/2024 6:18 AM EST) Pathologist [facility] Magnesium 2.3 1.9 - 2.6 mg/dL LAB CHEMISTRY METHOD 06/03/2024 11:[address] [facility] LAB Blood Venous blood specimen / Unknown Venipuncture / Unknown 06/03/2024 6:18 AM EST 06/03/2024 10:27 AM EST Braydon Sykes MD LAB BLOOD ORDERABLES Final Res ult Performing Organization Address [facility]/ZIP Co de Phone Number [facility] [address] [place] [address], [place] [phone] * (ABNORMAL) Comprehensive metabolic panel (06/03/2024 6:18 AM EST) [facility] Sodium 136 133 - 145 mmol/L LAB CHEMISTRY METHOD 06/03/2024 11:57 AM [facility] LAB Potassium 4.1 3.5 - 5.5 mmol/L LAB CHEMISTRY METHOD 06/03/2024 11:57 AM [facility] LAB Chloride 104 96 - 110 mmol/L LAB CHEMISTRY METHOD 06/03/2024 11:57 AM [facility] LAB CO2 24 21 - 32 mmol/L LAB CHEMISTRY METHOD 06/03/2024 11:57 AM [facility] LAB Anion Gap 8 3 - 11 LAB CHEMISTRY METHOD 06/03/2024 11:57 AM [facility] LAB Glucose 83 70 - 100 mg/dL LAB CHEMISTRY METHOD 06/03/2024 11:57 AM [facility] BUN 14 5 - 25 mg/dL LAB CHEMISTRY METHOD 06/03/2024 11:57 AM [facility] LAB Creatinine 0.58 0.50 - 1.10 mg/dL LAB CHEMISTRY METHOD 06/03/2024 11:57 AM [facility] LAB eGFR 108 >=60 mL/min/1. 73m2 LAB CHEMISTRY METHOD 06/03/2024 11:57 AM [facility] LAB Comment:Calculation based on the??Chronic Kidney Disease Epidemiology Collaboration (CKD-EPI) equation refit??without adjustment for race. BUN/Creatinine Ratio 24.1 LAB CHEMISTRY METHOD 06/03/2024 11:57 AM [facility] LAB Calcium 9.1 8.5 - 10.5 mg/dL LAB CHEMISTRY METHOD 06/03/2024 11:57 AM [facility] LAB AST (SGOT) 36 10 - 42 unit/L LAB CHEMISTRY METHOD 06/03/2024 11:57 AM [facility] LAB ALT (SGPT) 43 10 - 60 unit/L LAB CHEMISTRY METHOD 06/03/2024 11:57 AM [facility] LAB Alkaline Phosphatase 148(H) 42 - 121 unit/L LAB CHEMISTRY METHOD 06/03/2024 11:57 AM [facility] LAB Total Protein 6.2 6.0 - 8.0 g/dL LAB CHEMISTRY METHOD 06/03/2024 11:57 AM [facility] LAB Albumin 3.5 3.2 - 5.0 g/dL LAB CHEMISTRY METHOD 06/03/2024 11:57 AM [facility] LAB Total Bilirubin 0.2 0.0 - 1.4 mg/dL LAB CHEMISTRY METHOD 06/03/2024 11:57 AM [facility] LAB Blood Venous blood specimen / Unknown Venipuncture / Unknown 06/03/2024 6:18 AM EST 06/03/2024 10:27 AM EST us Braydon Sykes MD LAB BLOOD ORDERABLES Final Res ult [facility] [address] [place] [address], documented in this encounter Visit Diagnoses Diagnosis Encounter for other general examination documented in this encounter Care Teams Apprentice Funeral Director Relationship Specialty Start Date End Date Braydon Sykes MD [address] [place] [phone] PCP - General Internal Medicine 06/03/24 documented as of this encounter
--- OUTSIDE RECORDS SUMMARY | 2024-06-16 08:24 | XMS_ITS | Encounter Summary ---
Author Organization [facility] Address [address] [place] [address] Care Team Providers Care Concrete Mixing Truck Driver Name Role Phone Braydon Sykes MD Primary Care Provider [phone] Encounter Details Date Type Department Care Team (Late st Contact Info) Description 06/09/2024 Lab Requisition [facility] - Main Lab [address] [place] [address] Braydon Sykes MD [address] [place] [phone] Encounter for other general examination Social History [...] Procedure Name Priority Date/Time Associated Diagnosis Comments COMPLETE BLOOD COUNT Routine 06/09/2024 6:00 AM EST Encounter for other general examination BASIC METABOLIC PANEL Routine 06/09/2024 6:00 AM EST Encounter for other general examination documented in this encounter Results * (ABNORMAL) Complete blood count (06/09/2024 6:00 AM EST) WBC 5.6 4.8 - 10.8 K/[facility] LAB HEMETOLOGY METHOD 06/09/2024 8:24 AM EST [facility] LAB RBC 4.40 3.80 - 4.80 M/[facility] LAB HEMETOLOGY METHOD 06/09/2024 8:24 AM EST [facility] LAB Hemoglobin 12.1 11.5 - 16.0 g/dL LAB HEMETOLOGY METHOD 06/09/2024 8:24 AM [facility] LAB Hematocrit 39.2 35.0 - 47.0 % LAB HEMETOLOGY METHOD 06/09/2024 8:24 AM [facility] LAB MCV 89.9 79.0 - 98.0 FL LAB HEMETOLOGY METHOD 06/09/2024 8:24 AM [facility] LAB MCH 27.8 27.0 - 32.0 pcg LAB HEMETOLOGY METHOD 06/09/2024 8:24 AM [facility] LAB MCHC 30.9(L) 32.0 - 37.0 g/dL LAB HEMETOLOGY METHOD 06/09/2024 8:24 AM [facility] LAB RDW 14.8 11.0 - 15.0 % LAB HEMETOLOGY METHOD 06/09/2024 8:24 AM [facility] LAB Platelets 245 130 - 400 K/mcL LAB HEMETOLOGY METHOD 06/09/2024 8:24 AM [facility] LAB MPV 10.5 7.0 - 11.0 FL LAB HEMETOLOGY METHOD 06/09/2024 8:24 AM [facility] LAB NRBC 0.5 <1.0 % LAB HEMETOLOGY METHOD 06/09/2024 8:24 AM [facility] LAB NRBC Absolute 0.03 <0.10 K/mcL LAB HEMETOLOGY METHOD 06/09/2024 8:24 AM [facility] LAB Blood Venous blood specimen / Unknown Venipuncture / Unknown 06/09/2024 6:00 AM EST 06/09/2024 7:30 AM EST us Braydon Sykes MD LAB BLOOD ORDERABLES Final Res ult [facility] [address] [place] [address], * Basic metabolic panel (06/09/2024 6:00 AM EST) Sodium 136 133 - 145 mmol/L LAB CHEMISTRY METHOD 06/09/2024 8:20 AM [facility] Potassium 4.4 3.5 - 5.5 mmol/L LAB CHEMISTRY METHOD 06/09/2024 8:20 AM [facility] LAB Chloride 105 96 - 110 mmol/L LAB CHEMISTRY METHOD 06/09/2024 8:20 AM [facility] LAB CO2 22 21 - 32 mmol/L LAB CHEMISTRY METHOD 06/09/2024 8:20 AM [facility] LAB Anion Gap 9 3 - 11 LAB CHEMISTRY METHOD 06/09/2024 8:20 AM [facility] LAB Glucose 74 70 - 100 mg/dL LAB CHEMISTRY METHOD 06/09/2024 8:20 AM [facility] LAB BUN 14 5 - 25 mg/dL LAB CHEMISTRY METHOD 06/09/2024 8:20 AM [facility] LAB Creatinine 0.65 0.50 - 1.10 mg/dL LAB CHEMISTRY METHOD 06/09/2024 8:20 AM [facility] LAB eGFR 105 >=60 mL/min/1. 73m2 LAB CHEMISTRY METHOD 06/09/2024 8:20 AM [facility] LAB Comment:Calculation based on the??Chronic Kidney Disease Epidemiology Collaboration (CKD-EPI) equation refit??without adjustment for race. BUN/Creatinine Ratio 21.5 LAB CHEMISTRY METHOD 06/09/2024 8:20 AM [facility] LAB Calcium 9.0 8.5 - 10.5 mg/dL LAB CHEMISTRY METHOD 06/09/2024 8:20 AM [facility] LAB Blood Venous blood specimen / Unknown Venipuncture / Unknown 06/09/2024 6:00 AM EST 06/09/2024 7:30 AM EST us Braydon Sykes MD LAB BLOOD ORDERABLES Final Res ult [facility] [place] [facility] [address] [place] [address], [place] [phone] documented in this encounter Visit Diagnoses Diagnosis Encounter for other general examination documented in this encounter Care Teams Concrete Mixing Truck Driver Relationship Specialty Start Date End Date Braydon Sykes MD [address] [place] [phone] PCP - General Internal Medicine 06/03/24 documented as of this encounter
--- OUTSIDE RECORDS SUMMARY | 2024-06-16 08:24 | XMS_ITS | Clinical Summary ---
Author Organization [address] [facility] Address [address] [place] [address] Phone Care Team Providers Care Senior Private Client Advisor Name Role Phone Braydon Sykes MD Primary Care Provider [phone] Encounters Date Type Department Care Team Description 06/09/2024 Lab Requisition [facility] Lab [address] [place] [phone] Braydon Sykes MD Encounter for other general examination 06/03/2024 Lab Requisition [facility] Lab [address] [place] [phone] Braydon Sykes MD Encounter for other general examination from Last 3 Months Social History Tobacco Use Types Packs/Day Years Used Date Smoking Tobacco: Never Assessed Comments Unknown Sex and Gender Information Value Date Recorded Sex Assigned at Not on file Legal Sex Female 12:00 PM EST Gender Identity Not on file Sexual Orientation Not on file Plan of Treatment Health Maintenance Due Date Last Done Comments Breast Cancer Screening 1971 DTaP,Tdap,and Td Vaccines (1 - Tdap) 1990 Hepatitis B Vaccines (1 of 3 - 19+ 3-dose series) 1990 Cervical Cancer Screening: P ap Smear 01/10/1992 Pneumococcal Vaccine: 50+ Ye ars (1 of 1 - PCV) 2021 Zoster Vaccines (1 of 2) 2021 COVID-19 Vaccine ( - 2023-2 5 season) 2023 Influenza Vaccine (#1) 2023 Colorectal Cancer Screening: Colonoscopy 06/03/2024 Depression Screening 06/03/2024 HIV Screening 06/03/2024 Hepatitis C Screening 06/03/2024 Social Influencers of Health Screening 06/03/2024 HIB Vaccines Aged Out No longer eligi ble based on patient's age to complete this topic HPV Vaccines Aged Out No longer eligi ble based on patient's age to complete this topic Hepatitis A Vaccines Aged Out No long er eligible based on patient's age to complete this topic IPV Vaccines Aged Out No longer eligi ble based on patient's age to complete this topic MMR Vaccines Aged Out No longer eligi ble based on patient's age to complete this topic Meningococcal ACWY Vaccine Aged Out N o longer eligible based on patient's age to complete this topic Meningococcal B Vacine Aged Out No lo nger eligible based on patient's age to complete this topic Pneumococcal Vaccine: Pediat rics (0 to 5 Years) and At-Risk Patients (6 to 64 Years) Aged Out No longer eligible b ased on patient's age to complete this topic RSV Immunization Patients Un alisa 20 months Aged Out No longer eligible b ased on patient's age to complete this topic Varicella Vaccines Aged Out No longer eligible based on patient's age to complete this topic Procedures Procedure Name Priority Date/Time Associated Diagnosis Comments COMPLETE BLOOD COUNT Routine 06/09/2024 6:00 AM EST Encounter for other general examination BASIC METABOLIC PANEL Routine 06/09/2024 6:00 AM EST Encounter for other general examination CBC WITH AUTO DIFFERENTIAL Routine 06/03/2024 6:18 AM EST Encounter for other general examination MAGNESIUM Routine 06/03/2024 6:18 AM EST Encounter for other general examination CBC AND DIFFERENTIAL Routine 06/03/2024 6:18 AM EST Encounter for other general examination COMPREHENSIVE METABOLIC PANEL Routine 06/03/2024 6:18 AM EST Encounter for other general examination from Last 3 Months Results * (ABNORMAL) Complete blood count (06/09/2024 6:00 AM EST) WBC 5.6 4.8 - 10.8 K/mcL LAB HEMETOLOGY METHOD 06/09/2024 8:24 AM [facility] LAB RBC 4.40 3.80 - 4.80 M/mcL LAB HEMETOLOGY METHOD 06/09/2024 8:24 AM [facility] LAB Hemoglobin 12.1 11.5 - 16.0 g/dL LAB HEMETOLOGY METHOD 06/09/2024 8:24 AM [facility] LAB Hematocrit 39.2 35.0 - 47.0 % LAB HEMETOLOGY METHOD 06/09/2024 8:24 AM [facility] LAB MCV 89.9 79.0 - 98.0 FL LAB HEMETOLOGY METHOD 06/09/2024 8:24 AM [facility] LAB MCH 27.8 27.0 - 32.0 pcg LAB HEMETOLOGY METHOD 06/09/2024 8:24 AM [facility] LAB MCHC 30.9(L) 32.0 - 37.0 g/dL LAB HEMETOLOGY METHOD 06/09/2024 8:24 AM [facility] LAB RDW 14.8 11.0 - 15.0 % LAB HEMETOLOGY METHOD 06/09/2024 8:24 AM [facility] LAB Platelets 245 130 - 400 K/mcL LAB HEMETOLOGY METHOD 06/09/2024 8:24 AM [facility] LAB MPV 10.5 7.0 - 11.0 FL LAB HEMETOLOGY METHOD 06/09/2024 8:24 AM [facility] LAB NRBC 0.5 <1.0 % LAB HEMETOLOGY METHOD 06/09/2024 8:24 AM [facility] LAB NRBC Absolute 0.03 <0.10 K/mcL LAB HEMETOLOGY METHOD 06/09/2024 8:24 AM [facility] LAB Blood Venous blood specimen / Unknown Venipuncture / Unknown 06/09/2024 6:00 AM EST 06/09/2024 7:30 AM EST us Braydon Sykes MD LAB BLOOD ORDERABLES Final Res ult [facility] [address] [place] [address], * Basic metabolic panel (06/09/2024 6:00 AM EST) Sodium 136 133 - 145 mmol/L LAB CHEMISTRY METHOD 06/09/2024 8:20 AM [facility] Potassium 4.4 3.5 - 5.5 mmol/L LAB CHEMISTRY METHOD 06/09/2024 8:20 AM [facility] Chloride 105 96 - 110 mmol/L LAB CHEMISTRY METHOD 06/09/2024 8:20 AM [facility] LAB CO2 22 21 - 32 mmol/L LAB CHEMISTRY METHOD 06/09/2024 8:20 AM [facility] LAB Anion Gap 9 3 - 11 LAB CHEMISTRY METHOD 06/09/2024 8:20 AM [facility] LAB Glucose 74 70 - 100 mg/dL LAB CHEMISTRY METHOD 06/09/2024 8:20 AM [facility] BUN 14 5 - 25 mg/dL LAB CHEMISTRY METHOD 06/09/2024 8:20 AM [facility] LAB Creatinine 0.65 0.50 - 1.10 mg/dL LAB CHEMISTRY METHOD 06/09/2024 8:20 AM [facility] LAB eGFR 105 >=60 mL/min/1. 73m2 LAB CHEMISTRY METHOD 06/09/2024 8:20 AM [facility] LAB Comment:Calculation based on the??Chronic Kidney Disease Epidemiology Collaboration (CKD-EPI) equation refit??without adjustment for race. BUN/Creatinine Ratio 21.5 LAB CHEMISTRY METHOD 06/09/2024 8:20 AM [facility] LAB Calcium 9.0 8.5 - 10.5 mg/dL LAB CHEMISTRY METHOD 06/09/2024 8:20 AM [facility] Blood Venous blood specimen / Unknown Venipuncture / Unknown 06/09/2024 6:00 AM EST 06/09/2024 7:30 AM EST us Braydon Sykes MD LAB BLOOD ORDERABLES Final Res ult [facility] [address] [place] [address], * (ABNORMAL) CBC auto differential (06/03/2024 6:18 AM EST) WBC 5.6 4.8 - 10.8 K/mcL LAB HEMETOLOGY METHOD 06/03/2024 11:27 AM [facility] RBC 4.80 3.80 - 4.80 M/mcL LAB HEMETOLOGY METHOD 06/03/2024 11:27 AM [facility] LAB Hemoglobin 12.8 11.5 - 16.0 g/dL LAB HEMETOLOGY METHOD 06/03/2024 11:27 AM [facility] LAB Hematocrit 39.8 35.0 - 47.0 % LAB HEMETOLOGY METHOD 06/03/2024 11:27 AM [facility] LAB MCV 82.2 79.0 - 98.0 FL LAB HEMETOLOGY METHOD 06/03/2024 11:27 AM [facility] LAB MCH 26.4(L) 27.0 - 32.0 pcg LAB HEMETOLOGY METHOD 06/03/2024 11:27 AM [facility] LAB MCHC 32.2 32.0 - 37.0 g/dL LAB HEMETOLOGY METHOD 06/03/2024 11:27 AM [facility] LAB RDW 14.2 11.0 - 15.0 % LAB HEMETOLOGY METHOD 06/03/2024 11:27 AM [facility] LAB Platelets 199 130 - 400 K/mcL LAB HEMETOLOGY METHOD 06/03/2024 11:27 AM [facility] LAB MPV 10.8 7.0 - 11.0 FL LAB HEMETOLOGY METHOD 06/03/2024 11:27 AM [facility] LAB NRBC 0.0 <1.0 % LAB HEMETOLOGY METHOD 06/03/2024 11:27 AM [facility] LAB NRBC Absolute 0.00 <0.10 K/mcL LAB HEMETOLOGY METHOD 06/03/2024 11:27 AM [facility] LAB Neutrophils Relative 64.3 % LAB HEMETOLOGY METHOD 06/03/2024 11:27 AM [facility] Lymphocytes Relative 19.3 % LAB HEMETOLOGY METHOD 06/03/2024 11:27 AM [facility] Monocytes Relative 13.5 % LAB HEMETOLOGY METHOD 06/03/2024 11:27 AM [facility] Eosinophils Relative 2.0 % LAB HEMETOLOGY METHOD 06/03/2024 11:27 AM [facility] Basophils Relative 0.5 % LAB HEMETOLOGY METHOD 06/03/2024 11:27 AM [facility] Immature Granulocytes Relative 0.4 % LAB HEMETOLOGY METHOD 06/03/2024 11:27 AM [facility] LAB Neutrophils Absolute 3.63 1.50 - 7.00 K/mcL LAB HEMETOLOGY METHOD 06/03/2024 11:27 AM [facility] Lymphocytes Absolute 1.09 1.00 - 5.00 K/mcL LAB HEMETOLOGY METHOD 06/03/2024 11:27 AM [facility] Monocytes Absolute 0.76 0.20 - 1.00 K/mcL LAB HEMETOLOGY METHOD 06/03/2024 11:27 AM [facility] LAB Eosinophils Absolute 0.11 0.00 - 0.50 K/mcL LAB HEMETOLOGY METHOD 06/03/2024 11:[address] [facility] Basophils Absolute 0.03 0.00 - 0.20 K/[facility] LAB HEMETOLOGY METHOD 06/03/2024 11:[address] [facility] Immature Granulocytes Absolute 0.02 0.00 - 0.03 K/[facility] LAB HEMETOLOGY METHOD 06/03/2024 11:[address] [facility] Blood Venous blood specimen / Unknown Venipuncture / Unknown 06/03/2024 6:18 AM EST 06/03/2024 10:27 AM EST Braydon Sykes MD LAB BLOOD ORDERABLES Final Res ult Performing Organization Address City/[facility]/ZIP Co de Phone Number [facility] [address] [place] [address], [place] [phone] * Magnesium (06/03/2024 6:18 AM EST) Magnesium 2.3 1.9 - 2.6 mg/dL LAB CHEMISTRY METHOD 06/03/2024 11:[address] [facility] Blood Venous blood specimen / Unknown Venipuncture / Unknown 06/03/2024 6:18 AM EST 06/03/2024 10:27 AM EST us Braydon Sykes MD LAB BLOOD ORDERABLES Final Res ult [facility] [address] [place] [address], [place] [phone] * (ABNORMAL) Comprehensive metabolic panel (06/03/2024 6:18 AM EST) Sodium 136 133 - 145 mmol/L LAB CHEMISTRY METHOD 06/03/2024 11:[address] [facility] Potassium 4.1 3.5 - 5.5 mmol/L LAB CHEMISTRY METHOD 06/03/2024 11:57 AM [facility] Chloride 104 96 - 110 mmol/L LAB CHEMISTRY METHOD 06/03/2024 11:57 AM [facility] CO2 24 21 - 32 mmol/L LAB CHEMISTRY METHOD 06/03/2024 11:57 AM [facility] Anion Gap 8 3 - 11 LAB CHEMISTRY METHOD 06/03/2024 11:57 AM [facility] Glucose 83 70 - 100 mg/dL LAB CHEMISTRY METHOD 06/03/2024 11:57 AM [facility] BUN 14 5 - 25 mg/dL LAB CHEMISTRY METHOD 06/03/2024 11:57 AM [facility] Creatinine 0.58 0.50 - 1.10 mg/dL LAB CHEMISTRY METHOD 06/03/2024 11:57 AM [facility] LAB eGFR 108 >=60 mL/min/1. 73m2 LAB CHEMISTRY METHOD 06/03/2024 11:57 AM [facility] Comment:Calculation based on the??Chronic Kidney Disease Epidemiology Collaboration (CKD-EPI) equation refit??without adjustment for race. BUN/Creatinine Ratio 24.1 LAB CHEMISTRY METHOD 06/03/2024 11:57 AM [facility] Calcium 9.1 8.5 - 10.5 mg/dL LAB CHEMISTRY METHOD 06/03/2024 11:57 AM [facility] AST (SGOT) 36 10 - 42 unit/L LAB CHEMISTRY METHOD 06/03/2024 11:57 AM [facility] ALT (SGPT) 43 10 - 60 unit/L LAB CHEMISTRY METHOD 06/03/2024 11:57 AM [facility] LAB Alkaline Phosphatase 148(H) 42 - 121 unit/L LAB CHEMISTRY METHOD 06/03/2024 11:57 AM [facility] Total Protein 6.2 6.0 - 8.0 g/dL LAB CHEMISTRY METHOD 06/03/2024 11:57 AM [facility] LAB Albumin 3.5 3.2 - 5.0 g/dL LAB CHEMISTRY METHOD 06/03/2024 11:[address] [facility] Total Bilirubin 0.2 0.0 - 1.4 mg/dL LAB CHEMISTRY METHOD 06/03/2024 11:[address] [facility] Blood Venous blood specimen / Unknown Venipuncture / Unknown 06/03/2024 6:18 AM EST 06/03/2024 10:27 AM EST us Braydon Sykes MD LAB BLOOD ORDERABLES Final Res ult [facility] [address] [place] [address], [place] [phone] from Last 3 Months Insurance MEDICAID - [place] Care Teams Senior Private Client Advisor Relationship Specialty Start Date End Date Braydon Sykes MD [address] [place] [phone] PCP - General Internal Medicine 06/03/24
--- NOTE | 2024-06-16 08:31 | MHC.PC.OV ---
Intake Visit Reasons: ED F/U Allergies niacin [Niaspan Extended-Release] Allergy (Intermediate, Verified 06/16/24 08:32) skin blisters tramadol Allergy (Intermediate, Verified 06/16/24 08:32) seizures barley [BARLEY] Allergy (Unknown, Verified 06/16/24 08:32) UNKNOWN fluticasone [Advair Diskus] Allergy (Unknown, Verified 06/16/24 08:32) Shortness of Breath ibuprofen Allergy (Unknown, Verified 06/16/24 08:32) Swelling naratriptan Allergy (Unknown, Verified 06/16/24 08:32) unknown Penicillins [PENICILLINS] Allergy (Unknown, Verified 06/16/24 08:32) Unknown sumatriptan Allergy (Unknown, Verified 06/16/24 08:32) unknown trazodone [TRAZODONE] Allergy (Unknown, Verified 06/16/24 08:32) UNKNOWN omalizumab [From Xolair] Adverse Reaction (Severe, Verified 06/16/24 08:32) Anaphylaxis rubber, unspecified Adverse Reaction (Severe, Verified 06/16/24 08:32) Unknown equate cough drops sugar free Allergy (Mild, Uncoded 05/13/24 12:59) Unknown silicone Adverse Reaction (Severe, Uncoded 05/13/24 12:59) Unknown vaseline Adverse Reaction (Severe, Uncoded 05/13/24 12:59) hives Medication List - Last Reconciled 06/16/24 by Thee Tay MD acetaminophen 1,000 mg PO Q6H PRN albuterol sulfate 90 mcg/actuation (Ventolin HFA) 2 puffs inhalation Q4H PRN bupropion HCl SR 150 mg PO BID@0800,1200 celecoxib 200 mg PO DAILY clonidine HCl 0.1 mg PO DAILY PRN cyclobenzaprine 5 mg PO TID PRN dexlansoprazole (Dexilant) 60 mg PO DAILY duloxetine mg PO DAILY duloxetine mg PO .once at PM dupilumab (Dupixent) 300 mg (2 mL) subcut Q2W 28 days fluticasone propion-salmeterol 500-50 mcg/dose (Advair Diskus) 1 ea inhalation BID fluticasone propionate 50 mcg/actuation (Flonase Allergy Relief) 2 sprays intranasal BID 90 days ipratropium-albuterol 0.5 mg-3 mg(2.5 mg base)/3 mL 3 mL inhalation Q4-6H PRN 30 days levothyroxine 150 mcg PO QAM 90 days lidocaine 4% 1 patch topical DAILY PRN lisinopril 5 mg PO DAILY loratadine 10 mg PO DAILY 30 days lorazepam (Ativan) 0.5 mg PO DAILY PRN montelukast 10 mg PO DAILY nystatin 1 appl topical BID PRN oxcarbazepine 150 mg PO BID topiramate 25 mg PO BID Tobacco use date assessed: 05/13/24 Dental Screening Dental Screen Date: 05/13/24 HPI ED F/U HPI Details - The patient is a 54-year-old female presented to [facility] with a sudden onset of headache, speech difficulties, and left-sided weakness occurring on the day of admission. - The patient's medical background includes essential hypertension, PTSD, depression, anemia, previous CVA, GERD, hypothyroidism, and a history of a coiled brain aneurysm in 2001. - Initial symptoms subsided within an hour, thereafter revealing lingering speech disturbances and limb weakness. - Neurological evaluation suggested seizure versus TIA, with negative findings on head CT and CTA scans. - Laboratory evaluations indicated stable hemoglobin levels. she was in Hospital from May 29 till Jun 11 . Patient states she had another seizure like activity 2 days ago. She reports stammering, stuttering, and confusion lasting four to five minutes. Medications prescribed during hospitalization include topiramate and oxcarbazepine. - Oxcarbazepine was prescribed previously for PTSD by her Psych provider. The patient's neurologist appointment is scheduled in two weeks to further evaluate her seizure condition. she also had EEG in hospital which confirmed epilepsy - Socially, she has stopped driving and sold her car due to confusion-related concerns and safety. She relies on Social Security Disability benefits after being dismissed from employment due to medical-related work absences. Problem List - Seizure disorder - Essential Hypertension - Post-Traumatic Stress Disorder (PTSD) - Major Depressive Disorder - Anemia - Gastroesophageal Reflux Disease (GERD) - Hypothyroidism - Brain Aneurysm Status Post Coiling - Allergic Rhinitis - Hyperthyroidism - Muscle Spasms Patient Instructions - Refrain from driving until further evaluation by neurologist in two weeks. - Adhere to prescribed medication regimen, including oxcarbazepine, topiramate, and lisinopril. - Stay at home for safety to prevent possible seizure-related injury. - Arrange prescription refills through [facility]. - Report any increase in seizure activity or side effects from medications promptly. - Continue attending all scheduled medical appointments, particularly with the neurologist. Review of Systems. - General: No fever no chills - Neurological: No headaches no dizziness - Ear nose throat: No sore throat no hearing difficulty no ear pain - Cardiovascular: No syncope, no chest pain, no palpitations - Gastrointestinal: No nausea vomiting or diarrhea - Endocrine: No polyuria polydipsia no heat intolerance - Genitourinary: No dysuria , no blood in urine [facility] Medical History (Updated 06/16/24 @ 21:41 by Thee Tay MD) Hospital discharge follow-up Other specified hypothyroidism Colon cancer screening Left sided abdominal pain Influenza A H1N1 infection Stool incontinence Shoulder pain Anemia Bronchitis due to COVID-19 virus COVID Acute pneumonia Work related injury Acute diarrhea Paresthesias in left hand Dysuria PFO (patent foramen ovale) Shortness of breath Community acquired pneumonia Chronic idiopathic constipation Pre-op examination Encounter for routine gynecological examination LFT elevation Encounter for general adult medical examination with abnormal findings Respiratory tract congestion with cough Hospital discharge follow-up COVID-19 Tracheobronchitis COVID-19 Iron deficiency anemia Shoulder pain, right Nausea and vomiting PFO (patent foramen ovale) History of transesophageal echocardiography (LAN) Colitis Abnormal angiogram of head COVID-19 Asthma Thyroid disease GERD (gastroesophageal reflux disease) Anemia Aneurysm Surgical History History of surgery of uterus H/O endoscopy History of H/O brain surgery History of colonoscopy Family History Father Diabetes Arthritis Diverticulitis Leukemia Mental health disorder Lung cancer Mother Anemia Arthritis Colon polyps Myocardial infarction Brother Crohn's disease Testicular cancer Brother Cancer Paternal Grandfather Leukemia Other Substance use disorder Social History Household Members: Spouse and Children Housing: House Are you a primary childcare director to a significant other at home: No Do you presently have visiting nurse or other home services: No Alcohol intake: former Patient Tobacco Use Status: Former Tobacco user Tobacco use type: Cigarette Cigarettes Per Day: 10 e-Cigarette/Vaping Use: Never Used Second Hand Smoke Exposure: No Advance Directives Date on File: 04/09/21 service: No 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al status: employed 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: [employer]/ right hand dominant Cognitive needs: No Hearing needs: No Vision needs: Yes Questionnaire PHQ-9 Over the last 2 weeks, how often have you been bothered by any of the following problems? 1. Little interest or pleasure in doing things: several days 2. Feeling down, depressed, or hopeless: several days 3. Trouble falling or staying asleep, or sleeping too much: several days 4. Feeling tired or having little energy: several days 5. Poor appetite or overeating: not at all 6. Feeling bad about yourself - or that you are a failure or have let yourself or your family down: not at all 7. Trouble concentrating on things, such as reading the newspaper or watching television: not at all 8. Moving or speaking so slowly that other people could have noticed. Or the opposite - being so fidgety or restless that you have been moving around a lot more than usual: not at all 9. Thoughts that you would be better off or of hurting yourself in some way: not at all Total score: 4 Depression Screening Interpretation: Negative Depression Screening Done: Yes 84084 - PHQ-9 Billing: Yes Source: Developed by Drs. Masood Arredondo, Thor Love and colleagues, with an educational phil from [employer]. Thrive Questionnaire Date Thrive assessed: 05/30/24 MARKO-7 AMB Questionnaire MARKO-7 Date MARKO - 7 assessed: 06/16/24 Feeling nervous, anxious, or on edge: 2 = More than half the days Not being able to stop or control worryin = Several days Worrying too much about different things: 1 = Several days Trouble relaxin = Several days Being so restless that it is hard to sit still: 0 = Not at all Becoming easily annoyed or irritable: 0 = Not at all Source: Developed by Drs. Masood Arredondo, Thor Love and colleagues, with an educational phil from [employer]. MARKO-7 Assessment Billing MARKO-7 Assessment Tool: MARKO-7 Assessment 92225 Physical exam (Primary Care) Tobacco/Smoking Status: Tobacco use Status Tobacco use date assessed 05/13/24 06/16/24 08:37 Patient Tobacco Use Status Former Tobacco user 06/16/24 08:37 Tobacco use type Cigarette 06/16/24 08:37 e-Cigarette/Vaping Use Never Used 06/16/24 08:37 PHQ-9: PHQ-9 Score PHQ-9: Total score 4 06/16/24 09:18 Depression Screening Interpretation: Negative Thrive Assessment: Date of Thrive Assessment Date Thrive assessed 05/30/24 06/16/24 08:37 Telehealth Telehealth Telehealth Platform: Telephone Location of provider rendering services: practice address Location of patient: address on file Patient Identification confirmed using: Name, : Yes Telehealth method: video Patient verbally consented to treatment: Yes Patient verbally consented to billing insurance company: Yes Patient informed of any privacy concerns related to visit: Yes Minutes spent on Phone/Video with Pt.: 30 Coding Level of Care Code Tele Est Pt Level 4 (22639) Complex EM visit Add On G2211 Diagnoses Hospital discharge follow-up Z09 Nonintractable epilepsy without status epilepticus, unspecified epilepsy type G40.909 Epilepsy type: unspecified Intractability: not intractable Status epilepticus: without status epilepticus Panic anxiety syndrome F41.0 Other specified hypothyroidism E03.8 Moderate episode of recurrent major depressive disorder F33.1 Active/Remission status: currently active Major depression episode severity: moderate Gastroesophageal reflux disease without esophagitis K21.9 Esophagitis presence: without esophagitis Additional Codes MARKO-7 Assessment Billing - MARKO-7 Assessment Tool: MARKO-7 Assessment 41527 ([id number]) PHQ-9 - 81228 - PHQ-9 Billing: Yes ([id number]) Assessment & Plan Assessment & Plan (1) Hospital discharge follow-up: Code(s): Z09 - Encounter for follow-up examination after completed treatment for conditions other than malignant neoplasm Category: Medical (2) Epilepsy: Code(s): G40.909 - Epilepsy, unspecified, not intractable, without status epilepticus Category: Medical Qualifiers: Epilepsy type: unspecified Intractability: not intractable Status epilepticus: without status epilepticus Qualified Code(s): G40.909 - Epilepsy, unspecified, not intractable, without status epilepticus (3) Panic anxiety syndrome: Code(s): F41.0 - Panic disorder [episodic paroxysmal anxiety] Category: Medical (4) Other specified hypothyroidism: Code(s): E03.8 - Other specified hypothyroidism Category: Medical (5) Major depression, recurrent: Code(s): F33.9 - Major depressive disorder, recurrent, unspecified Category: Medical Qualifiers: Active/Remission status: currently active Major depression episode severity: moderate Qualified Code(s): F33.1 - Major depressive disorder, recurrent, moderate (6) GERD (gastroesophageal reflux disease): Code(s): K21.9 - Gastro-esophageal reflux disease without esophagitis Category: Medical Qualifiers: Esophagitis presence: without esophagitis Qualified Code(s): K21.9 - Gastro-esophageal reflux disease without esophagitis Plan - The patient is a 54-year-old female presented to [facility] with a sudden onset of headache, speech difficulties, and left-sided weakness occurring on the day of admission. - The patient's medical background includes essential hypertension, PTSD, depression, anemia, previous CVA, GERD, hypothyroidism, and a history of a coiled brain aneurysm in 2001. - Initial symptoms subsided within an hour, thereafter revealing lingering speech disturbances and limb weakness. - Neurological evaluation suggested seizure versus TIA, with negative findings on head CT and CTA scans. - Laboratory evaluations indicated stable hemoglobin levels. she was in Hospital from May 29 till Jun 11 . Patient states she had another seizure like activity 2 days ago. She reports stammering, stuttering, and confusion lasting four to five minutes. Medications prescribed during hospitalization include topiramate and oxcarbazepine. - Oxcarbazepine was prescribed previously for PTSD by her Psych provider. The patient's neurologist appointment is scheduled in two weeks to further evaluate her seizure condition. she also had EEG in hospital which confirmed epilepsy - Socially, she has stopped driving and sold her car due to confusion-related concerns and safety. She relies on Social Security Disability benefits after being dismissed from employment due to medical-related work absences. Problem List - Seizure disorder - Essential Hypertension - Post-Traumatic Stress Disorder (PTSD) - Major Depressive Disorder - Anemia - Gastroesophageal Reflux Disease (GERD) - Hypothyroidism - Brain Aneurysm Status Post Coiling - Allergic Rhinitis - Hyperthyroidism - Muscle Spasms Patient Instructions - Refrain from driving until further evaluation by neurologist in two weeks. - Adhere to prescribed medication regimen, including oxcarbazepine, topiramate, and lisinopril. - Stay at home for safety to prevent possible seizure-related injury. - Arrange prescription refills through [facility]. - Report any increase in seizure activity or side effects from medications promptly. - Continue attending all scheduled medical appointments, particularly with the neurologist. Review of Systems. - General: No fever no chills - Neurological: No headaches no dizziness - Ear nose throat: No sore throat no hearing difficulty no ear pain - Cardiovascular: No syncope, no chest pain, no palpitations - Gastrointestinal: No nausea vomiting or diarrhea - Endocrine: No polyuria polydipsia no heat intolerance - Genitourinary: No dysuria , no blood in urine Medications: New lisinopril 5 mg PO DAILY 90 tabs 0RF lisinopril 5 mg PO DAILY 90 tabs 0RF Changed From cyclobenzaprine 5 mg PO TID PRN 30 tabs 0RF left sciatica pain To cyclobenzaprine 5 mg PO ONCE PRN 90 tabs 0RF left sciatica pain Refilled celecoxib 200 mg PO DAILY 90 caps 0RF celecoxib 200 mg PO DAILY 90 caps 0RF cyclobenzaprine 5 mg PO ONCE PRN 90 tabs 0RF left sciatica pain
== END 2024-06-16 09:25 | disposition home or self-care (01) ==
LOC: HO.HMCC 08:16
PROVIDERS: PCP Internal Medicine; Visit Provider Internal Medicine
DX: G40.909 Epilepsy, unspecified, not intractable, without status epilepticus (principal); F33.1 Major depressive disorder, recurrent, moderate; Z09 Encounter for follow-up examination after completed treatment for conditions other than malignant neoplasm; F41.0 Panic disorder [episodic paroxysmal anxiety]; E03.8 Other specified hypothyroidism; K21.9 Gastro-esophageal reflux disease without esophagitis

== ENCOUNTER → 2024-06-16 08:16 | Outpatient (BNVA) | payer OTHER, SELFPAY | PROVIDERS: PCP Internal Medicine; Visit Provider Internal Medicine | DX: Z09 Encounter for follow-up examination after completed treatment for conditions other than malignant neoplasm (principal); G40.909 Epilepsy, unspecified, not intractable, without status epilepticus; F41.0 Panic disorder [episodic paroxysmal anxiety]; E03.8 Other specified hypothyroidism; F33.1 Major depressive disorder, recurrent, moderate; K21.9 Gastro-esophageal reflux disease without esophagitis | CPT/HCPCS: 96127 ==

== ENCOUNTER 2024-06-30 08:31 | Outpatient (AMB) | payer OTHER, SELFPAY ==
--- NOTE | 2024-06-30 08:49 | A.OFFPC_ITS ---
Intake Visit Reasons: PFML Allergies niacin [Niaspan Extended-Release] Allergy (Intermediate, Verified 06/16/24 08:32) skin blisters tramadol Allergy (Intermediate, Verified 06/16/24 08:32) seizures barley [BARLEY] Allergy (Unknown, Verified 06/16/24 08:32) UNKNOWN fluticasone [Advair Diskus] Allergy (Unknown, Verified 06/16/24 08:32) Shortness of Breath ibuprofen Allergy (Unknown, Verified 06/16/24 08:32) Swelling naratriptan Allergy (Unknown, Verified 06/16/24 08:32) unknown Penicillins [PENICILLINS] Allergy (Unknown, Verified 06/16/24 08:32) Unknown sumatriptan Allergy (Unknown, Verified 06/16/24 08:32) unknown trazodone [TRAZODONE] Allergy (Unknown, Verified 06/16/24 08:32) UNKNOWN omalizumab [From Xolair] Adverse Reaction (Severe, Verified 06/16/24 08:32) Anaphylaxis rubber, unspecified Adverse Reaction (Severe, Verified 06/16/24 08:32) Unknown equate cough drops sugar free Allergy (Mild, Uncoded 05/13/24 12:59) Unknown silicone Adverse Reaction (Severe, Uncoded 05/13/24 12:59) Unknown vaseline Adverse Reaction (Severe, Uncoded 05/13/24 12:59) hives Medication List - Last Reconciled 06/30/24 by Thee Tay MD acetaminophen 1,000 mg PO Q6H PRN albuterol sulfate 90 mcg/actuation (Ventolin HFA) 2 puffs inhalation Q4H PRN bupropion HCl SR 150 mg PO BID@0800,1200 celecoxib 200 mg PO DAILY clonidine HCl 0.1 mg PO DAILY PRN cyclobenzaprine 5 mg PO ONCE PRN dexlansoprazole (Dexilant) 60 mg PO DAILY duloxetine mg PO DAILY duloxetine mg PO .once at PM dupilumab (Dupixent) 300 mg (2 mL) subcut Q2W 28 days fluticasone propion-salmeterol 500-50 mcg/dose (Advair Diskus) 1 ea inhalation BID fluticasone propionate 50 mcg/actuation (Flonase Allergy Relief) 2 sprays intranasal BID 90 days ipratropium-albuterol 0.5 mg-3 mg(2.5 mg base)/3 mL 3 mL inhalation Q4-6H PRN 30 days levothyroxine 150 mcg PO QAM 90 days lidocaine 4% 1 patch topical DAILY PRN lisinopril 5 mg PO DAILY loratadine 10 mg PO DAILY 30 days lorazepam (Ativan) 0.5 mg PO DAILY PRN montelukast 10 mg PO DAILY nystatin 1 appl topical BID PRN oxcarbazepine 150 mg PO BID topiramate 25 mg PO BID Tobacco use date assessed: 05/13/24 Dental Screening Dental Screen Date: 05/13/24 HPI PFML HPI Details History - The patient is a 54-year-old female pr esenting for follow-up on diagnosis and paperwork related to a recent hospital stay for possible stroke symptoms. - History of confusion between diagnoses of PTSD, hemiplegic migraine, and focal seizures. it seems like patient was given different info and her recent Neuro visit she was told she didnt had any stroke, it can be complicated migrain - Hospitalized from May 29 to with symptoms suggestive of neurological events. - Imaging ruled out stroke; findings not ed include small vessel ischemic changes and right parotid gland atrophy. - Salary compensation paperwork needs co mpletion following employment termination on June 06. Problem List - Post-Traumatic Stress Disorder (PTSD) - Hemiplegic Migraine - Small Vessel Ischemic Changes (on MRI) - Total Atrophy of Right Parotid Gland Patient Instructions - i will be reviewing neurology notes fo r a further appointment. - Expect mailed paperwork necessary for medical leave claims. Review of Systems - General: No fever no chills - Neurological: No headaches no dizziness - Ear nose throat: No sore throat no hearing difficulty no ear pain - Cardiovascular: No syncope, no chest pain, no palpitations - Gastrointestinal: No nausea vomiting or diarrhea - Endocrine: No polyuria polydipsia no heat intolerance - Genitourinary: No dysuria , no blood in urine [facility] Medical History Hospital discharge follow-up Other specified hypothyroidism Colon cancer screening Left sided abdominal pain Influenza A H1N1 infection Stool incontinence Shoulder pain Anemia Bronchitis due to COVID-19 virus COVID Acute pneumonia Work related injury Acute diarrhea Paresthesias in left hand Dysuria PFO (patent foramen ovale) Shortness of breath Community acquired pneumonia Chronic idiopathic constipation Pre-op examination Encounter for routine gynecological examination LFT elevation Encounter for general adult medical examination with abnormal findings Respiratory tract congestion with cough Hospital discharge follow-up COVID-19 Tracheobronchitis COVID-19 Iron deficiency anemia Shoulder pain, right Nausea and vomiting PFO (patent foramen ovale) History of transesophageal echocardiography (LAN) Colitis Abnormal angiogram of head COVID-19 Asthma Thyroid disease GERD (gastroesophageal reflux disease) Anemia Aneurysm Surgical History History of surgery of uterus H/O endoscopy History of H/O brain surgery History of colonoscopy Family History Father Diabetes Arthritis Diverticulitis Leukemia Mental health disorder Lung cancer Mother Anemia Arthritis Colon polyps Myocardial infarction Brother Crohn's disease Testicular cancer Brother Cancer Paternal Grandfather Leukemia Other Substance use disorder Social History Household Members: Spouse and Children Housing: House Are you a primary date night caregiver to a significant other at home: No Do you presently have visiting nurse or other home services: No Alcohol intake: former Patient Tobacco Use Status: Former Tobacco user Tobacco use type: Cigarette Cigarettes Per Day: 10 e-Cigarette/Vaping Use: Never Used Second Hand Smoke Exposure: No Advance Directives Date on File: 04/09/21 service: No 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al status: employed 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: [employer]/ right hand dominant Cognitive needs: No Hearing needs: No Vision needs: Yes Questionnaire Thrive Questionnaire Date Thrive assessed: 05/30/24 MARKO-7 AMB Questionnaire MARKO-7 Date MARKO - 7 assessed: 06/16/24 Source: Developed by Drs. Masood Arredondo, Lesly Pruitt, Thor Del Cid and colleagues, with an educational phil from [employer] Physical exam (Primary Care) Tobacco/Smoking Status: Tobacco use Status Tobacco use date assessed 05/13/24 06/30/24 08:50 Patient Tobacco Use Status Former Tobacco user 06/30/24 08:50 Tobacco use type Cigarette 06/30/24 08:50 e-Cigarette/Vaping Use Never Used 06/30/24 08:50 Thrive Assessment: Date of Thrive Assessment Date Thrive assessed 05/30/24 06/30/24 08:50 Telehealth Telehealth Telehealth Platform: [facility] Location of provider rendering services: practice address Location of patient: address on file Patient Identification confirmed using: Name, : Yes Telehealth method: voice only Patient verbally consented to treatment: Yes Patient verbally consented to billing insurance company: Yes Patient informed of any privacy concerns related to visit: Yes Minutes spent on Phone/Video with Pt.: 14 Coding Level of Care Code Tele Est Pt Level 3 (25753) Diagnoses Complicated migraine G43.109 Assessment & Plan Assessment & Plan (1) Complicated migraine: Code(s): G43.109 - Migraine with aura, not intractable, without status migrainosus Category: Medical Plan History - The patient is a 54-year-old female presenting for follow-up on diagnosis and paperwork related to a recent hospital stay for possible stroke symptoms. - History of confusion between diagnoses of PTSD, hemiplegic migraine, and focal seizures. it seems like patient was given different info and her recent Neuro visit she was told she didnt had any stroke, it can be complicated migrain - Hospitalized from May 29 to June 11 with symptoms suggestive of neurological events. - Imaging ruled out stroke; findings noted include small vessel ischemic changes and right parotid gland atrophy. - Salary compensation paperwork needs completion following employment termination on June 06. Problem List - Post-Traumatic Stress Disorder (PTSD) - Hemiplegic Migraine - Small Vessel Ischemic Changes (on MRI) - Total Atrophy of Right Parotid Gland Patient Instructions - i will be reviewing neurology notes for a further appointment. - Expect mailed paperwork necessary for medical leave claims.
--- OUTSIDE RECORDS SUMMARY | 2024-06-30 08:56 | XMS_ITS | Clinical Summary ---
Author Organization 299 [facility] Address [address] [place] [address] Phone Care Team Providers Care Underwriting Support Manager Name Role Phone Braydon Sykes MD Primary Care Provider [phone] Encounters Date Type Department Care Team Description 06/09/2024 Lab Requisition [facility] [address] [place] [phone] Braydon Sykes MD Encounter for other general examination 06/03/2024 Lab Requisition [facility] Lab [address] [place] [phone] Braydon Sykes MD Encounter for other general [...] K/mcL LAB HEMETOLOGY METHOD 06/09/2024 8:24 AM [facility] LAB RBC 4.40 3.80 - 4.80 M/mcL LAB HEMETOLOGY METHOD 06/09/2024 8:24 AM [facility] LAB Hemoglobin 12.1 11.5 - 16.0 g/dL LAB HEMETOLOGY METHOD 06/09/2024 8:24 AM [facility] LAB Hematocrit 39.2 35.0 - 47.0 % LAB HEMETOLOGY METHOD 06/09/2024 8:24 AM [facility] LAB MCV 89.9 79.0 - 98.0 FL LAB HEMETOLOGY METHOD 06/09/2024 8:24 AM [facility] LAB MCH 27.8 27.0 - 32.0 pcg LAB HEMETOLOGY METHOD 06/09/2024 8:24 AM [facility] LAB MCHC 30.9(L) 32.0 - 37.0 g/dL LAB HEMETOLOGY METHOD 06/09/2024 8:24 AM [facility] LAB RDW 14.8 11.0 - 15.0 % LAB HEMETOLOGY METHOD 06/09/2024 8:24 AM [facility] LAB Platelets 245 130 - 400 K/mcL LAB HEMETOLOGY METHOD 06/09/2024 8:24 AM [facility] LAB MPV 10.5 7.0 - 11.0 FL LAB HEMETOLOGY METHOD 06/09/2024 8:24 AM [facility] LAB NRBC 0.5 <1.0 % LAB HEMETOLOGY METHOD 06/09/2024 8:24 AM [facility] LAB NRBC Absolute 0.03 <0.10 K/mcL LAB HEMETOLOGY METHOD 06/09/2024 8:24 AM [facility] LAB Blood Venous blood specimen / Unknown Venipuncture / Unknown 06/09/2024 6:00 AM EST 06/09/2024 7:30 AM EST us Braydon Sykes MD LAB BLOOD ORDERABLES Final Res ult [facility] [address] [place] [address], * Basic metabolic panel (06/09/2024 6:00 AM EST) Sodium 136 133 - 145 mmol/L LAB CHEMISTRY METHOD 06/09/2024 8:20 AM [facility] LAB Potassium 4.4 3.5 - 5.5 mmol/L LAB CHEMISTRY METHOD 06/09/2024 8:20 AM [facility] LAB Chloride 105 96 - 110 mmol/L LAB CHEMISTRY METHOD 06/09/2024 8:20 AM [facility] LAB CO2 22 21 - 32 mmol/L LAB CHEMISTRY METHOD 06/09/2024 8:20 AM [facility] LAB Anion Gap 9 3 - 11 LAB CHEMISTRY METHOD 06/09/2024 8:20 AM [facility] LAB Glucose 74 70 - 100 mg/dL LAB CHEMISTRY METHOD 06/09/2024 8:20 AM [facility] LAB BUN 14 5 - 25 mg/dL LAB CHEMISTRY METHOD 06/09/2024 8:20 AM [facility] LAB Creatinine 0.65 0.50 - 1.10 mg/dL LAB CHEMISTRY METHOD 06/09/2024 8:20 AM [facility] LAB eGFR 105 >=60 mL/min/1. 73m2 LAB CHEMISTRY METHOD 06/09/2024 8:20 AM [facility] LAB Comment:Calculation based on the??Chronic Kidney Disease Epidemiology Collaboration (CKD-EPI) equation refit??without adjustment for race. BUN/Creatinine Ratio 21.5 LAB CHEMISTRY METHOD 06/09/2024 8:20 AM [facility] LAB Calcium 9.0 8.5 - 10.5 mg/dL LAB CHEMISTRY METHOD 06/09/2024 8:20 AM [facility] LAB Blood Venous blood specimen / Unknown Venipuncture / Unknown 06/09/2024 6:00 AM EST 06/09/2024 7:30 AM EST us Braydon Sykes MD LAB BLOOD ORDERABLES Final Res ult [facility] [address] [place] [address], * (ABNORMAL) CBC auto differential (06/03/2024 6:18 AM EST) WBC 5.6 4.8 - 10.8 K/mcL LAB HEMETOLOGY METHOD 06/03/2024 11:27 AM [facility] RBC 4.80 3.80 - 4.80 M/mcL LAB HEMETOLOGY METHOD 06/03/2024 11:27 AM [facility] LAB Hemoglobin 12.8 11.5 - 16.0 g/dL LAB HEMETOLOGY METHOD 06/03/2024 11:27 AM [facility] LAB Hematocrit 39.8 35.0 - 47.0 % LAB HEMETOLOGY METHOD 06/03/2024 11:27 AM [facility] LAB MCV 82.2 79.0 - 98.0 FL LAB HEMETOLOGY METHOD 06/03/2024 11:27 AM [facility] LAB MCH 26.4(L) 27.0 - 32.0 pcg LAB HEMETOLOGY METHOD 06/03/2024 11:27 AM [facility] LAB MCHC 32.2 32.0 - 37.0 g/dL LAB HEMETOLOGY METHOD 06/03/2024 11:27 AM [facility] LAB RDW 14.2 11.0 - 15.0 % LAB HEMETOLOGY METHOD 06/03/2024 11:27 AM [facility] LAB Platelets 199 130 - 400 K/mcL LAB HEMETOLOGY METHOD 06/03/2024 11:27 AM [facility] LAB MPV 10.8 7.0 - 11.0 FL LAB HEMETOLOGY METHOD 06/03/2024 11:27 AM [facility] LAB NRBC 0.0 <1.0 % LAB HEMETOLOGY METHOD 06/03/2024 11:27 AM [facility] LAB NRBC Absolute 0.00 <0.10 K/mcL LAB HEMETOLOGY METHOD 06/03/2024 11:27 AM [facility] LAB Neutrophils Relative 64.3 % LAB HEMETOLOGY METHOD 06/03/2024 11:27 AM [facility] Lymphocytes Relative 19.3 % LAB HEMETOLOGY METHOD 06/03/2024 11:27 AM [facility] Monocytes Relative 13.5 % LAB HEMETOLOGY METHOD 06/03/2024 11:27 AM [facility] Eosinophils Relative 2.0 % LAB HEMETOLOGY METHOD 06/03/2024 11:27 AM [facility] Basophils Relative 0.5 % LAB HEMETOLOGY METHOD 06/03/2024 11:27 AM [facility] Immature Granulocytes Relative 0.4 % LAB HEMETOLOGY METHOD 06/03/2024 11:27 AM [facility] Neutrophils Absolute 3.63 1.50 - 7.00 K/mcL LAB HEMETOLOGY METHOD 06/03/2024 11:27 AM [facility] Lymphocytes Absolute 1.09 1.00 - 5.00 K/mcL LAB HEMETOLOGY METHOD 06/03/2024 11:27 AM [facility] Monocytes Absolute 0.76 0.20 - 1.00 K/mcL LAB HEMETOLOGY METHOD 06/03/2024 11:27 AM [facility] Eosinophils Absolute 0.11 0.00 - 0.50 K/mcL LAB HEMETOLOGY METHOD 06/03/2024 11:27 AM EST [facility] LAB Basophils Absolute 0.03 0.00 - 0.20 K/[facility] LAB HEMETOLOGY METHOD 06/03/2024 11:27 AM EST [facility] LAB Immature Granulocytes Absolute 0.02 0.00 - 0.03 K/[facility] LAB HEMETOLOGY METHOD 06/03/2024 11:27 AM EST [facility] LAB Blood Venous blood specimen / Unknown Venipuncture / Unknown 06/03/2024 6:18 AM EST 06/03/2024 10:27 AM EST Braydon Sykes MD LAB BLOOD ORDERABLES Final Res ult Performing Organization Address City/[facility]/ZIP Co de Phone Number [facility] [address] [place] [address], [place] [phone] * Magnesium (06/03/2024 6:18 AM EST) Magnesium 2.3 1.9 - 2.6 mg/dL LAB CHEMISTRY METHOD 06/03/2024 11:57 AM EST [facility] LAB Blood Venous blood specimen / Unknown Venipuncture / Unknown 06/03/2024 6:18 AM EST 06/03/2024 10:27 AM EST us Braydon Sykes MD LAB BLOOD ORDERABLES Final Res ult [facility] [address] [place] [address], [place] [phone] * (ABNORMAL) Comprehensive metabolic panel (06/03/2024 6:18 AM EST) Sodium 136 133 - 145 mmol/L LAB CHEMISTRY METHOD 06/03/2024 11:57 AM EST [facility] LAB Potassium 4.1 3.5 - 5.5 mmol/L LAB CHEMISTRY METHOD 06/03/2024 11:57 AM [facility] Chloride 104 96 - 110 mmol/L LAB CHEMISTRY METHOD 06/03/2024 11:57 AM [facility] LAB CO2 24 21 - 32 mmol/L LAB CHEMISTRY METHOD 06/03/2024 11:57 AM [facility] LAB Anion Gap 8 3 - 11 LAB CHEMISTRY METHOD 06/03/2024 11:57 AM [facility] Glucose 83 70 - 100 mg/dL LAB CHEMISTRY METHOD 06/03/2024 11:57 AM [facility] BUN 14 5 - 25 mg/dL LAB CHEMISTRY METHOD 06/03/2024 11:57 AM [facility] LAB Creatinine 0.58 0.50 - 1.10 mg/dL LAB CHEMISTRY METHOD 06/03/2024 11:57 AM [facility] LAB eGFR 108 >=60 mL/min/1. 73m2 LAB CHEMISTRY METHOD 06/03/2024 11:57 AM [facility] LAB Comment:Calculation based on the??Chronic Kidney Disease Epidemiology Collaboration (CKD-EPI) equation refit??without adjustment for race. BUN/Creatinine Ratio 24.1 LAB CHEMISTRY METHOD 06/03/2024 11:57 AM [facility] LAB Calcium 9.1 8.5 - 10.5 mg/dL LAB CHEMISTRY METHOD 06/03/2024 11:57 AM [facility] LAB AST (SGOT) 36 10 - 42 unit/L LAB CHEMISTRY METHOD 06/03/2024 11:57 AM [facility] LAB ALT (SGPT) 43 10 - 60 unit/L LAB CHEMISTRY METHOD 06/03/2024 11:57 AM [facility] LAB Alkaline Phosphatase 148(H) 42 - 121 unit/L LAB CHEMISTRY METHOD 06/03/2024 11:57 AM [facility] LAB Total Protein 6.2 6.0 - 8.0 g/dL LAB CHEMISTRY METHOD 06/03/2024 11:57 AM [facility] LAB Albumin 3.5 3.2 - 5.0 g/dL LAB CHEMISTRY METHOD 06/03/2024 11:57 AM EST [facility] LAB Total Bilirubin 0.2 0.0 - 1.4 mg/dL LAB CHEMISTRY METHOD 06/03/2024 11:57 AM EST [facility] LAB Blood Venous blood specimen / Unknown Venipuncture / Unknown 06/03/2024 6:18 AM EST 06/03/2024 10:27 AM EST us Braydon Sykes MD LAB BLOOD ORDERABLES Final Res ult [facility] [address] [place] [address], [place] [phone] from Last 3 Months Insurance MEDICAID - [place] Care Teams Underwriting Support Manager Relationship Specialty Start Date End Date Braydon Sykes MD [address] [place] [id number] PCP - General Internal Medicine 06/03/24
--- OUTSIDE RECORDS SUMMARY | 2024-06-30 08:56 | XMS_ITS | Encounter Summary ---
Author Organization [facility] Address [address] [place] [address] Care Team Providers Care Typewriter Assembler Name Role Phone Braydon Sykes MD Primary Care Provider [phone] Encounter Details Date Type Department Care Team (Late st Contact Info) Description 06/03/2024 Lab Requisition [facility] Lab [address] [facility] [place] [address] Braydon Sykes MD [address] [place] [phone] Encounter for other general examination Social History [...] AM EST) WBC 5.6 4.8 - 10.8 K/[facility] LAB HEMETOLOGY METHOD 06/03/2024 11:27 AM [facility] LAB RBC 4.80 3.80 - 4.80 M/[facility] LAB HEMETOLOGY METHOD 06/03/2024 11:27 AM [facility] LAB Hemoglobin 12.8 11.5 - 16.0 g/dL LAB HEMETOLOGY METHOD 06/03/2024 11:27 AM [facility] LAB Hematocrit 39.8 35.0 - 47.0 % LAB HEMETOLOGY METHOD 06/03/2024 11:27 AM [facility] LAB MCV 82.2 79.0 - 98.0 FL LAB HEMETOLOGY METHOD 06/03/2024 11:27 AM [facility] LAB MCH 26.4(L) 27.0 - 32.0 pcg LAB HEMETOLOGY METHOD 06/03/2024 11:27 AM [facility] LAB MCHC 32.2 32.0 - 37.0 g/dL LAB HEMETOLOGY METHOD 06/03/2024 11:27 AM [facility] LAB RDW 14.2 11.0 - 15.0 % LAB HEMETOLOGY METHOD 06/03/2024 11:27 AM [facility] LAB Platelets 199 130 - 400 K/[facility] LAB HEMETOLOGY METHOD 06/03/2024 11:27 AM [facility] LAB MPV 10.8 7.0 - 11.0 FL LAB HEMETOLOGY METHOD 06/03/2024 11:27 AM [facility] LAB NRBC 0.0 <1.0 % LAB HEMETOLOGY METHOD 06/03/2024 11:27 AM [facility] LAB NRBC Absolute 0.00 <0.10 K/[facility] LAB HEMETOLOGY METHOD 06/03/2024 11:27 AM [facility] LAB Neutrophils Relative 64.3 % LAB HEMETOLOGY METHOD 06/03/2024 11:27 AM [facility] LAB Lymphocytes Relative 19.3 % LAB HEMETOLOGY METHOD 06/03/2024 11:27 AM [facility] LAB Monocytes Relative 13.5 % LAB HEMETOLOGY METHOD 06/03/2024 11:27 AM [facility] LAB Eosinophils Relative 2.0 % LAB HEMETOLOGY METHOD 06/03/2024 11:27 AM [facility] LAB Basophils Relative 0.5 % LAB HEMETOLOGY METHOD 06/03/2024 11:27 AM [facility] LAB Immature Granulocytes Relative 0.4 % LAB HEMETOLOGY METHOD 06/03/2024 11:27 AM [facility] LAB Neutrophils Absolute 3.63 1.50 - 7.00 K/mcL LAB HEMETOLOGY METHOD 06/03/2024 11:27 AM [facility] LAB Lymphocytes Absolute 1.09 1.00 - 5.00 K/mcL LAB HEMETOLOGY METHOD 06/03/2024 11:27 AM [facility] LAB Monocytes Absolute 0.76 0.20 - 1.00 K/mcL LAB HEMETOLOGY METHOD 06/03/2024 11:27 AM [facility] LAB Eosinophils Absolute 0.11 0.00 - 0.50 K/mcL LAB HEMETOLOGY METHOD 06/03/2024 11:27 AM [facility] LAB Basophils Absolute 0.03 0.00 - 0.20 K/mcL LAB HEMETOLOGY METHOD 06/03/2024 11:27 AM [facility] LAB Immature Granulocytes Absolute 0.02 0.00 - 0.03 K/mcL LAB HEMETOLOGY METHOD 06/03/2024 11:27 AM [facility] LAB Blood Venous blood specimen / Unknown Venipuncture / Unknown 06/03/2024 6:18 AM EST 06/03/2024 10:27 AM EST Braydon Sykes MD LAB BLOOD ORDERABLES Final Res ult Performing Organization Address [facility]/ZIP Co de Phone Number [facility] [address] [place] [address], [place] [phone] * Magnesium (06/03/2024 6:18 AM EST) Pathologist [facility] Magnesium 2.3 1.9 - 2.6 mg/dL LAB CHEMISTRY METHOD 06/03/2024 11:57 AM EST [facility] Blood Venous blood specimen / Unknown Venipuncture / Unknown 06/03/2024 6:18 AM EST 06/03/2024 10:27 AM EST Braydon Sykes MD LAB BLOOD ORDERABLES Final Res ult Performing Organization Address [facility]/ZIP Co de Phone Number [facility] [address] [place] [address], [place] [phone] * (ABNORMAL) Comprehensive metabolic panel (06/03/2024 6:18 AM EST) [facility] Sodium 136 133 - 145 mmol/L LAB CHEMISTRY METHOD 06/03/2024 11:57 AM [facility] LAB Potassium 4.1 3.5 - 5.5 mmol/L LAB CHEMISTRY METHOD 06/03/2024 11:57 AM [facility] LAB Chloride 104 96 - 110 mmol/L LAB CHEMISTRY METHOD 06/03/2024 11:57 AM [facility] LAB CO2 24 21 - 32 mmol/L LAB CHEMISTRY METHOD 06/03/2024 11:57 AM [facility] LAB Anion Gap 8 3 - 11 LAB CHEMISTRY METHOD 06/03/2024 11:57 AM [facility] LAB Glucose 83 70 - 100 mg/dL LAB CHEMISTRY METHOD 06/03/2024 11:57 AM [facility] LAB BUN 14 5 - 25 mg/dL LAB CHEMISTRY METHOD 06/03/2024 11:57 AM [facility] LAB Creatinine 0.58 0.50 - 1.10 mg/dL LAB CHEMISTRY METHOD 06/03/2024 11:57 AM [facility] LAB eGFR 108 >=60 mL/min/1. 73m2 LAB CHEMISTRY METHOD 06/03/2024 11:57 AM [facility] LAB Comment:Calculation based on the??Chronic Kidney Disease Epidemiology Collaboration (CKD-EPI) equation refit??without adjustment for race. BUN/Creatinine Ratio 24.1 LAB CHEMISTRY METHOD 06/03/2024 11:57 AM [facility] LAB Calcium 9.1 8.5 - 10.5 mg/dL LAB CHEMISTRY METHOD 06/03/2024 11:57 AM [facility] LAB AST (SGOT) 36 10 - 42 unit/L LAB CHEMISTRY METHOD 06/03/2024 11:57 AM [facility] LAB ALT (SGPT) 43 10 - 60 unit/L LAB CHEMISTRY METHOD 06/03/2024 11:57 AM [facility] LAB Alkaline Phosphatase 148(H) 42 - 121 unit/L LAB CHEMISTRY METHOD 06/03/2024 11:57 AM [facility] LAB Total Protein 6.2 6.0 - 8.0 g/dL LAB CHEMISTRY METHOD 06/03/2024 11:57 AM [facility] LAB Albumin 3.5 3.2 - 5.0 g/dL LAB CHEMISTRY METHOD 06/03/2024 11:57 AM [facility] LAB Total Bilirubin 0.2 0.0 - 1.4 mg/dL LAB CHEMISTRY METHOD 06/03/2024 11:57 AM [facility] LAB Blood Venous blood specimen / Unknown Venipuncture / Unknown 06/03/2024 6:18 AM EST 06/03/2024 10:27 AM EST us Braydon Sykes MD LAB BLOOD ORDERABLES Final Res ult [facility] [address] [place] [address], documented in this encounter Visit Diagnoses Diagnosis Encounter for other general examination documented in this encounter Care Teams Typewriter Assembler Relationship Specialty Start Date End Date Braydon Sykes MD [address] [place] [phone] PCP - General Internal Medicine 06/03/24 documented as of this encounter
--- OUTSIDE RECORDS SUMMARY | 2024-06-30 08:56 | XMS_ITS | Encounter Summary ---
Author Organization [facility] Address [address] [place] [address] Care Team Providers Care Weed Inspector Name Role Phone Braydon Sykes MD Primary Care Provider [phone] Encounter Details Date Type Department Care Team (Late st Contact Info) Description 06/09/2024 Lab Requisition [facility] - Main Lab [address] [place] [address] Braydon Sykes MD [address] [place] [phone] Encounter for other general examination Social History [...] [facility] LAB HEMETOLOGY METHOD 06/09/2024 8:24 AM EST [facility] RBC 4.40 3.80 - 4.80 M/[facility] LAB HEMETOLOGY METHOD 06/09/2024 8:24 AM EST [facility] Hemoglobin 12.1 11.5 - 16.0 g/dL LAB HEMETOLOGY METHOD 06/09/2024 8:[address] [facility] LAB Hematocrit 39.2 35.0 - 47.0 % LAB HEMETOLOGY METHOD 06/09/2024 8:[address] [facility] LAB MCV 89.9 79.0 - 98.0 FL LAB HEMETOLOGY METHOD 06/09/2024 8:[address] [facility] LAB MCH 27.8 27.0 - 32.0 pcg LAB HEMETOLOGY METHOD 06/09/2024 8:[address] [facility] LAB MCHC 30.9(L) 32.0 - 37.0 g/dL LAB HEMETOLOGY METHOD 06/09/2024 8:[address] [facility] LAB RDW 14.8 11.0 - 15.0 % LAB HEMETOLOGY METHOD 06/09/2024 8:[address] [facility] LAB Platelets 245 130 - 400 K/mcL LAB HEMETOLOGY METHOD 06/09/2024 8:[address] [facility] LAB MPV 10.5 7.0 - 11.0 FL LAB HEMETOLOGY METHOD 06/09/2024 8:[address] [facility] LAB NRBC 0.5 <1.0 % LAB HEMETOLOGY METHOD 06/09/2024 8:[address] [facility] LAB NRBC Absolute 0.03 <0.10 K/mcL LAB HEMETOLOGY METHOD 06/09/2024 8:[address] [facility] LAB Blood Venous blood specimen / Unknown Venipuncture / Unknown 06/09/2024 6:00 AM EST 06/09/2024 7:30 AM EST us Braydon Sykes MD LAB BLOOD ORDERABLES Final Res ult [facility] [address] [place] [address], * Basic metabolic panel (06/09/2024 6:00 AM EST) Sodium 136 133 - 145 mmol/L LAB CHEMISTRY METHOD 06/09/2024 8:[address] [facility] Potassium 4.4 3.5 - 5.5 mmol/L LAB CHEMISTRY METHOD 06/09/2024 8:[address] [facility] Chloride 105 96 - 110 mmol/L LAB CHEMISTRY METHOD 06/09/2024 8:[address] [facility] CO2 22 21 - 32 mmol/L LAB CHEMISTRY METHOD 06/09/2024 8:[address] [facility] Anion Gap 9 3 - 11 LAB CHEMISTRY METHOD 06/09/2024 8:[address] [facility] Glucose 74 70 - 100 mg/dL LAB CHEMISTRY METHOD 06/09/2024 8:[address] [facility] BUN 14 5 - 25 mg/dL LAB CHEMISTRY METHOD 06/09/2024 8:[address] [facility] Creatinine 0.65 0.50 - 1.10 mg/dL LAB CHEMISTRY METHOD 06/09/2024 8:[address] [facility] LAB eGFR 105 >=60 mL/min/1. 73m2 LAB CHEMISTRY METHOD 06/09/2024 8:[address] [facility] LAB Comment:Calculation based on the??Chronic Kidney Disease Epidemiology Collaboration (CKD-EPI) equation refit??without adjustment for race. BUN/Creatinine Ratio 21.5 LAB CHEMISTRY METHOD 06/09/2024 8:[address] [facility] Calcium 9.0 8.5 - 10.5 mg/dL LAB CHEMISTRY METHOD 06/09/2024 8:[address] [facility] Blood Venous blood specimen / Unknown Venipuncture / Unknown 06/09/2024 6:00 AM EST 06/09/2024 7:30 AM EST us Braydon Sykes MD LAB BLOOD ORDERABLES Final Res ult [facility] [address] [place] [address], [place] [phone] documented in this encounter Visit Diagnoses Diagnosis Encounter for other general examination documented in this encounter Care Teams Weed Inspector Relationship Specialty Start Date End Date Braydon Sykes MD [address] [place] [phone] PCP - General Internal Medicine 06/03/24 documented as of this encounter
== END 2024-06-30 09:53 | disposition home or self-care (01) ==
PROVIDERS: PCP Internal Medicine; Visit Provider Internal Medicine
DX: G43.109 Migraine with aura, not intractable, without status migrainosus (principal)

== ENCOUNTER 2024-07-22 12:33 | Outpatient (AMB) | payer OTHER, SELFPAY ==
[2024-07-22 13:08] VITALS: BP 108/64; PULSE 100; O2SAT 95; BMI 36.6
--- NOTE | 2024-07-22 13:08 | MHC.OFFVIS ---
Vital Signs 07/22/24 13:08 Height 5 ft 5 in Weight 220 lb BMI 36.6 BP 108/64 Blood Pressure Location Lt brachial Position Sitting Pulse 100 Pulse Source Doppler Pulse Oximetry (%) 95 Oxygen Delivery Method Room Air Intake Visit Reasons: asthma Allergies niacin [Niaspan Extended-Release] Allergy (Intermediate, Verified 07/22/24 13:14) skin blisters tramadol Allergy (Intermediate, Verified 07/22/24 13:14) seizures barley [BARLEY] Allergy (Unknown, Verified 07/22/24 13:14) UNKNOWN fluticasone [Advair Diskus] Allergy (Unknown, Verified 07/22/24 13:14) Shortness of Breath ibuprofen Allergy (Unknown, Verified 07/22/24 13:14) Swelling naratriptan Allergy (Unknown, Verified 07/22/24 13:14) unknown Penicillins [PENICILLINS] Allergy (Unknown, Verified 07/22/24 13:14) Unknown sumatriptan Allergy (Unknown, Verified 07/22/24 13:14) unknown trazodone [TRAZODONE] Allergy (Unknown, Verified 07/22/24 13:14) UNKNOWN omalizumab [From Xolair] Adverse Reaction (Severe, Verified 07/22/24 13:14) Anaphylaxis rubber, unspecified Adverse Reaction (Severe, Verified 07/22/24 13:14) Unknown equate cough drops sugar free Allergy (Mild, Uncoded 05/13/24 12:59) Unknown silicone Adverse Reaction (Severe, Uncoded 05/13/24 12:59) Unknown vaseline Adverse Reaction (Severe, Uncoded 05/13/24 12:59) hives HPI HPI asthma: Details: 54-year-old lady, nonsmoker, followed for underlying severe persistent asthma with allergic component. After the last office visit she has been switched from Xolair to Dupixent and secondary to an reaction and now she continues on Dupixent, Advair, duo nebs, and albuterol MDI with good control of his symptoms. She denies recent exacerbations. [facility] Medical History Hospital discharge follow-up Other specified hypothyroidism Colon cancer screening Left sided abdominal pain Influenza A H1N1 infection Stool incontinence Shoulder pain Anemia Bronchitis due to COVID-19 virus COVID Acute pneumonia Work related injury Acute diarrhea Paresthesias in left hand Dysuria PFO (patent foramen ovale) Shortness of breath Community acquired pneumonia Chronic idiopathic constipation Pre-op examination Encounter for routine gynecological examination LFT elevation Encounter for general adult medical examination with abnormal findings Respiratory tract congestion with cough Hospital discharge follow-up COVID-19 Tracheobronchitis COVID-19 Iron deficiency anemia Shoulder pain, right Nausea and vomiting PFO (patent foramen ovale) History of transesophageal echocardiography (LAN) Colitis Abnormal angiogram of head COVID-19 Asthma Thyroid disease GERD (gastroesophageal reflux disease) Anemia Aneurysm Surgical History History of surgery of uterus H/O endoscopy History of H/O brain surgery History of colonoscopy Family History Father Diabetes Arthritis Diverticulitis Leukemia Mental health disorder Lung cancer Mother Anemia Arthritis Colon polyps Myocardial infarction Brother Crohn's disease Testicular cancer Brother Cancer Paternal Grandfather Leukemia Other Substance use disorder Social History Household Members: Spouse and Children Housing: House Are you a primary career technical education instructor to a significant other at home: No Do you presently have visiting nurse or other home services: No Alcohol intake: former Patient Tobacco Use Status: Former Tobacco user Tobacco use type: Cigarette Cigarettes Per Day: 10 e-Cigarette/Vaping Use: Never Used Second Hand Smoke Exposure: No Advance Directives Date on File: 04/09/21 service: No 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al status: employed 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: [employer]/ right hand dominant Cognitive needs: No Hearing needs: No Vision needs: Yes Review of Systems Const Denies daytime sleepiness, Denies excessive sweating, Denies fatigue, Denies fever(s), Denies lethargy, Denies malaise, Denies night sweats, Denies snoring and Denies weight loss Eyes Denies blurry vision and Denies itchy eyes ENT Denies nasal congestion, Denies post nasal drip, Denies sinus pain, Denies sinus pressure and Denies other ( Thrush) Card Denies chest pain, Denies pedal edema, Denies dyspnea, Denies orthopnea and Denies paroxysmal nocturnal dyspnea Resp Denies cough, Denies hemoptysis, Denies excessive phlegm production, Denies dyspnea, Denies snoring and Denies wheezing GI Denies abdominal pain and Denies heartburn Musc Denies myalgias, Denies arthralgias and Denies joint swelling Skin/Breast Denies rash Neuro Denies memory loss and Denies seizure-like activity Psych Denies abnormal sleep pattern, Denies anxiety and Denies memory loss Endo Denies excessive sweating, Denies fatigue and Denies heat intolerance Denny/Lymph Denies easy bruising Aller/Immun Denies itchy eyes, Denies seasonal rhinorrhea and Denies wheezing Physical Exam Vital Signs: Last Vital Signs Pulse 100 07/22/24 13:08 BP 108/64 07/22/24 13:08 Pulse Ox 95 07/22/24 13:08 Oxygen Delivery Method Room Air 07/22/24 13:08 BMI result Body Mass Index 36.6 Const General: no acute distress and alert Nutritional Appearance: not obese Orientation/consciousness: Other orientation findings ( oriented) HEENT Head: Yes atraumatic Eyes General: appearance normal, both eyes and all related structures Sclerae: sclerae normal EOM: EOMs intact bilaterally Neck Neck: Yes supple Lymphatic: no lymphadenopathy noted Resp Effort & Inspection: normal respiratory effort and no use of accessory muscles Auscultation: clear to auscultation bilaterally Cardio Rate: regular rate Rhythm: regular rhythm Heart sounds: no gallops, no murmurs and no rubs Skin General skin exam: other ( warm) Extrem General: No clubbing, No cyanosis and No edema Assessment & Plan Assessment & Plan (1) Severe persistent allergic asthma: Code(s): J45.50 - Severe persistent asthma, uncomplicated Category: Medical Plan: Well controlled on current regimen of Dupixent, Advair, duo nebs, and albuterol MDI. Continue current regimen. (2) Environmental allergies: Code(s): Z91.09 - Other allergy status, other than to drugs and biological substances Category: Medical Plan: Well controlled on Dupixent. Continue current regimen. Coding Level of Care Code Est Pt Level 4 (35142) Diagnoses Severe persistent allergic asthma J45.50 Environmental allergies Z91.09
== END 2024-07-22 13:30 | disposition home or self-care (01) ==
LOC: HO.HPS 12:34
PROVIDERS: PCP Internal Medicine; Visit Provider Internal Medicine Pulmonary Disease
DX: J45.50 Severe persistent asthma, uncomplicated (principal); Z91.09 Other allergy status, other than to drugs and biological substances
CPT/HCPCS: 99214

== ENCOUNTER → 2024-07-22 12:33 | Outpatient (BNVA) | payer OTHER, SELFPAY | PROVIDERS: PCP Internal Medicine; Visit Provider Internal Medicine Pulmonary Disease | DX: J45.50 Severe persistent asthma, uncomplicated (principal); Z91.09 Other allergy status, other than to drugs and biological substances | CPT/HCPCS: 99212 ==

== ENCOUNTER 2024-07-29 08:11 | Outpatient (AMB) | payer OTHER, SELFPAY ==
[2024-07-29 08:15] VITALS: BP 114/64; PULSE 74; BMI 37.3
--- NOTE | 2024-07-29 08:15 | MHC.OFFVIS ---
Vital Signs 07/29/24 08:15 Height 5 ft 5 in Weight 223 lb 15.834 oz BMI 37.3 BP 114/64 Blood Pressure Location Lt brachial Position Sitting Pulse 74 Pulse Source Pulse Oximeter Intake Visit Reasons: [facility] [place] Follow up (NS) Charge Entry Specialist Required: No Allergies niacin [Niaspan Extended-Release] Allergy (Intermediate, Verified 07/29/24 08:17) skin blisters tramadol Allergy (Intermediate, Verified 07/29/24 08:17) seizures barley [BARLEY] Allergy (Unknown, Verified 07/29/24 08:17) UNKNOWN fluticasone [Advair Diskus] Allergy (Unknown, Verified 07/29/24 08:17) Shortness of Breath ibuprofen Allergy (Unknown, Verified 07/29/24 08:17) Swelling naratriptan Allergy (Unknown, Verified 07/29/24 08:17) unknown Penicillins [PENICILLINS] Allergy (Unknown, Verified 07/29/24 08:17) Unknown sumatriptan Allergy (Unknown, Verified 07/29/24 08:17) unknown trazodone [TRAZODONE] Allergy (Unknown, Verified 07/29/24 08:17) UNKNOWN omalizumab [From Xolair] Adverse Reaction (Severe, Verified 07/29/24 08:17) Anaphylaxis rubber, unspecified Adverse Reaction (Severe, Verified 07/29/24 08:17) Unknown equate cough drops sugar free Allergy (Mild, Uncoded 07/29/24 08:17) Unknown silicone Adverse Reaction (Severe, Uncoded 07/29/24 08:17) Unknown vaseline Adverse Reaction (Severe, Uncoded 07/29/24 08:17) hives Medication List - Last Reconciled 07/29/24 by ABBY JohnsonC acetaminophen 1,000 mg PO Q6H PRN albuterol sulfate 90 mcg/actuation (Ventolin HFA) 2 puffs inhalation Q4H PRN [Blood pressure monitor As directed] bupropion HCl SR 150 mg PO BID@0800,1200 celecoxib 200 mg PO DAILY clonidine HCl 0.1 mg PO DAILY PRN cyclobenzaprine 5 mg PO ONCE PRN dexlansoprazole (Dexilant) 60 mg PO DAILY duloxetine mg PO DAILY duloxetine mg PO .once at PM dupilumab (Dupixent) 300 mg (2 mL) subcut Q2W 28 days [fall detection monitor As directed] fluticasone propion-salmeterol 500-50 mcg/dose (Advair Diskus) 1 ea inhalation BID fluticasone propionate 50 mcg/actuation (Flonase Allergy Relief) 2 sprays intranasal BID 90 days ipratropium-albuterol 0.5 mg-3 mg(2.5 mg base)/3 mL 3 mL inhalation Q4-6H PRN 30 days levothyroxine 150 mcg PO QAM 90 days lidocaine 4% 1 patch topical DAILY PRN lisinopril 5 mg PO DAILY loratadine 10 mg PO DAILY 30 days lorazepam (Ativan) 1 mg PO DAILY PRN montelukast 10 mg PO DAILY nystatin 1 appl topical BID PRN oxcarbazepine 150 mg PO BID topiramate 25 mg PO BID HPI HPI [facility] [place] Follow up (NS): Details: Berenice is a 54 yo female with PMH of obesity, PTSD, smoking, GERD, asthma, PFO who was recently admitted to [facility] [place] with left sided weakness and determined to have complicated migraine and seizure disorder. Following discharge she went to rehab. Today she reports that she is now home and still gets PT and OT. She has some mild left sided weakness and ambulates using a cane. She states that she has had difficulty concentrating and with memory. She is now out of work and says she is going on disability. Prior to this she was working at [employer]. She says she was told she did have a stroke. She does not take aspirin daily, since she forgets. She feels short of breath with walking and at times her chest will feel tight. She is not clear if this is related to her asthma or not. No actual chest discomfort. She will get random heart palpitations, like her heart is going fast. She has had dizziness but no presyncope, syncope. Has been mostly sedentary recently. Lives with boyfriend and his 26 yr old son. [facility] Medical History (Updated 07/29/24 @ 11:25 by ABBY JohnsonC) Hospital discharge follow-up Other specified hypothyroidism Colon cancer screening Left sided abdominal pain Influenza A H1N1 infection Stool incontinence Shoulder pain Anemia Bronchitis due to COVID-19 virus COVID Acute pneumonia Work related injury Acute diarrhea Paresthesias in left hand Dysuria PFO (patent foramen ovale) Shortness of breath Community acquired pneumonia Chronic idiopathic constipation Pre-op examination Encounter for routine gynecological examination LFT elevation Encounter for general adult medical examination with abnormal findings Respiratory tract congestion with cough Hospital discharge follow-up COVID-19 Tracheobronchitis COVID-19 Iron deficiency anemia Shoulder pain, right Nausea and vomiting PFO (patent foramen ovale) History of transesophageal echocardiography (LAN) Colitis Abnormal angiogram of head COVID-19 Asthma Thyroid disease GERD (gastroesophageal reflux disease) Anemia Aneurysm Surgical History History of surgery of uterus H/O endoscopy History of H/O brain surgery History of colonoscopy Family History Father Diabetes Arthritis Diverticulitis Leukemia Mental health disorder Lung cancer Mother Anemia Arthritis Colon polyps Myocardial infarction Brother Crohn's disease Testicular cancer Brother Cancer Paternal Grandfather Leukemia Other Substance use disorder Social History Household Members: Spouse and Children Housing: House Are you a primary manager critical care to a significant other at home: No Do you presently have visiting nurse or other home services: No Alcohol intake: former Patient Tobacco Use Status: Former Tobacco user Tobacco use type: Cigarette Cigarettes Per Day: 10 e-Cigarette/Vaping Use: Never Used Second Hand Smoke Exposure: No Advance Directives Date on File: 04/09/21 service: No 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al status: employed 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: [employer]/ right hand dominant Cognitive needs: No Hearing needs: No Vision needs: Yes Review of Systems Const All systems reviewed & are unremarkable except as noted in HPI and below Reports fatigue, Reports weakness (left sided) and Reports weight gain ENT Denies dizziness Card Details: chest tight and shortness of breath with walking Denies chest pain, Denies chest pain at rest, Denies chest pain with activity, Reports rapid heart rate, Denies pedal edema, Denies edema, Denies leg edema, Denies lightheadedness, Denies palpitations, Denies dyspnea, Reports dyspnea on exertion and Denies orthopnea Resp Denies cough, Denies dyspnea and Reports dyspnea on exertion GI Denies hematochezia and Denies change in stool character Musc Details: ambulates with cane Reports abnormal gait, Denies limited range of motion, Denies muscle cramps, Reports muscle weakness, Denies numbness, Denies radiating pain into limb, Denies stiffness and Denies tingling Neuro Reports abnormal gait, Denies dizziness, Denies numbness, Denies tingling and Reports weakness (left sided) Endo Reports fatigue and Denies palpitations Physical Exam Vital Signs: Last Vital Signs Pulse 74 07/29/24 08:15 BP 114/64 07/29/24 08:15 BMI result Body Mass Index 37.3 Const General: cooperative, comfortable and no acute distress Orientation/consciousness: patient oriented x3 Neck Neck: Yes normal visual inspection Resp Effort & Inspection: normal respiratory effort Auscultation: clear to auscultation bilaterally, no rales, no rhonchi and no wheezes Cardio Rate: regular rate Rhythm: regular rhythm Heart sounds: S1 normal heart sound present, S2 normal heart sound present, no murmurs and no rubs Neuro General: patient oriented x3 Extrem Other: mild residual left weakness General: Yes normal to inspection and No no pedal edema Psych Appearance: grossly normal Mental Status: mental status grossly normal Assessment & Plan Assessment & Plan (1) Complicated migraine: Code(s): G43.109 - Migraine with aura, not intractable, without status migrainosus Category: Medical Plan: Recent [facility] [place] admit for left weakness. CT, CTA and MRI brain did not show evidence of acute infarct. The MRI did show mild small vessel ischemic changes. Her symptoms were thought to be related to complex migraine, seizure disorder. Clinically she is improving and still has PT/ OT. Known hx of small PFO and takes as aspirin periodically. Recommend daily aspirin use. Will update echo to assess for any changes compaired to last. She is reporting heart palpitations. For completeness will order a holter monitor to eval for any PAF. Cardiology follow up 4-6 weeks, sooner if needed (2) Abnormal EKG: Code(s): R94.31 - Abnormal electrocardiogram [ECG] [EKG] Category: Medical Plan: EKG's show SR, cant exclude prior anterior infarct. No known CAD. Cardiac risks of smoking, HTN. Last echo 2022 showed normal EF. She does have sob and chest tightness which could be related to her asthma. Will start with an echocardiogram to reassess EF and wall motion. (3) Labile hypertension: Code(s): R09.89 - Other specified symptoms and signs involving the circulatory and respiratory systems Category: Medical Plan: BP goal < 130/80. Well controlled at this time. No med changes made. (4) PFO (patent foramen ovale): Code(s): Q21.12 - Patent foramen ovale Category: Medical Plan: LAN done 2022 for evaluation showing small PFO. (5) Hospital discharge follow-up: Code(s): Z09 - Encounter for follow-up examination after completed treatment for conditions other than malignant neoplasm Category: Medical Plan: Discharge summary reviewed (6) Palpitation: Code(s): R00.2 - Palpitations Category: Medical Plan: as above Plan Time spent on chart review, documentation, interview, assessment. Orders: Orders CA echo transthoracic complete Today R00.2 - Palpitations, R94.31 - Abnormal electrocardiogram [ECG] [EKG] ECG 3 day holter monitor Today R00.2 - Palpitations Coding Level of Care Code Est Pt Level 4 (26050) Complex EM visit Add On G2211 Diagnoses Complicated migraine G43.109 Abnormal EKG R94.31 Labile hypertension R09.89 PFO (patent foramen ovale) Q21.12 Hospital discharge follow-up Z09 Palpitation R00.2 Time Spent (min) 30
--- OUTSIDE RECORDS SUMMARY | 2024-07-29 08:25 | XMS_ITS | Clinical Summary ---
Author Organization [address] [facility] Address [address] [place] [address] Phone Care Team Providers Care Slip Tender Name Role Phone Braydon Sykes MD Primary Care Provider [phone] Encounters Date Type Department Care Team Description 06/09/2024 Lab Requisition [facility] Lab [address] [place] [phone] Braydon Sykes MD Encounter for other general examination 06/03/2024 Lab Requisition [facility] Lab [address] [place] [phone] Braydon Sykes MD Encounter for other general [...] K/mcL LAB HEMETOLOGY METHOD 06/09/2024 8:24 AM [facility] LAB RBC 4.40 3.80 - 4.80 M/mcL LAB HEMETOLOGY METHOD 06/09/2024 8:24 AM [facility] LAB Hemoglobin 12.1 11.5 - 16.0 g/dL LAB HEMETOLOGY METHOD 06/09/2024 8:24 AM [facility] LAB Hematocrit 39.2 35.0 - 47.0 % LAB HEMETOLOGY METHOD 06/09/2024 8:24 AM [facility] LAB MCV 89.9 79.0 - 98.0 FL LAB HEMETOLOGY METHOD 06/09/2024 8:24 AM [facility] LAB MCH 27.8 27.0 - 32.0 pcg LAB HEMETOLOGY METHOD 06/09/2024 8:24 AM [facility] LAB MCHC 30.9(L) 32.0 - 37.0 g/dL LAB HEMETOLOGY METHOD 06/09/2024 8:24 AM [facility] LAB RDW 14.8 11.0 - 15.0 % LAB HEMETOLOGY METHOD 06/09/2024 8:24 AM [facility] LAB Platelets 245 130 - 400 K/mcL LAB HEMETOLOGY METHOD 06/09/2024 8:24 AM [facility] LAB MPV 10.5 7.0 - 11.0 FL LAB HEMETOLOGY METHOD 06/09/2024 8:24 AM [facility] LAB NRBC 0.5 <1.0 % LAB HEMETOLOGY METHOD 06/09/2024 8:24 AM [facility] LAB NRBC Absolute 0.03 <0.10 K/mcL LAB HEMETOLOGY METHOD 06/09/2024 8:24 AM [facility] LAB Blood Venous blood specimen / Unknown Venipuncture / Unknown 06/09/2024 6:00 AM EST 06/09/2024 7:30 AM EST us Braydon Sykes MD LAB BLOOD ORDERABLES Final Res ult [facility] LAB [address] [place] [address], * Basic metabolic panel (06/09/2024 6:00 AM EST) Sodium 136 133 - 145 mmol/L LAB CHEMISTRY METHOD 06/09/2024 8:20 AM [facility] LAB Potassium 4.4 3.5 - 5.5 mmol/L LAB CHEMISTRY METHOD 06/09/2024 8:20 AM [facility] LAB Chloride 105 96 - 110 mmol/L LAB CHEMISTRY METHOD 06/09/2024 8:20 AM [facility] LAB CO2 22 21 - 32 mmol/L LAB CHEMISTRY METHOD 06/09/2024 8:20 AM [facility] LAB Anion Gap 9 3 - 11 LAB CHEMISTRY METHOD 06/09/2024 8:20 AM [facility] LAB Glucose 74 70 - 100 mg/dL LAB CHEMISTRY METHOD 06/09/2024 8:20 AM [facility] LAB BUN 14 5 - 25 mg/dL LAB CHEMISTRY METHOD 06/09/2024 8:20 AM [facility] LAB Creatinine 0.65 0.50 - 1.10 mg/dL LAB CHEMISTRY METHOD 06/09/2024 8:20 AM [facility] LAB eGFR 105 >=60 mL/min/1. 73m2 LAB CHEMISTRY METHOD 06/09/2024 8:20 AM [facility] LAB Comment:Calculation based on the??Chronic Kidney Disease Epidemiology Collaboration (CKD-EPI) equation refit??without adjustment for race. BUN/Creatinine Ratio 21.5 LAB CHEMISTRY METHOD 06/09/2024 8:20 AM [facility] LAB Calcium 9.0 8.5 - 10.5 mg/dL LAB CHEMISTRY METHOD 06/09/2024 8:20 AM [facility] LAB Blood Venous blood specimen / Unknown Venipuncture / Unknown 06/09/2024 6:00 AM EST 06/09/2024 7:30 AM EST us Braydon Sykes MD LAB BLOOD ORDERABLES Final Res ult [facility] LAB [address] [place] [address], * (ABNORMAL) CBC auto differential (06/03/2024 6:18 AM EST) WBC 5.6 4.8 - 10.8 K/mcL LAB HEMETOLOGY METHOD 06/03/2024 11:27 AM [facility] LAB RBC 4.80 3.80 - 4.80 M/mcL LAB HEMETOLOGY METHOD 06/03/2024 11:27 AM [facility] LAB Hemoglobin 12.8 11.5 - 16.0 g/dL LAB HEMETOLOGY METHOD 06/03/2024 11:27 AM [facility] LAB Hematocrit 39.8 35.0 - 47.0 % LAB HEMETOLOGY METHOD 06/03/2024 11:27 AM [facility] LAB MCV 82.2 79.0 - 98.0 FL LAB HEMETOLOGY METHOD 06/03/2024 11:27 AM [facility] LAB MCH 26.4(L) 27.0 - 32.0 pcg LAB HEMETOLOGY METHOD 06/03/2024 11:27 AM [facility] LAB MCHC 32.2 32.0 - 37.0 g/dL LAB HEMETOLOGY METHOD 06/03/2024 11:27 AM [facility] LAB RDW 14.2 11.0 - 15.0 % LAB HEMETOLOGY METHOD 06/03/2024 11:27 AM [facility] LAB Platelets 199 130 - 400 K/mcL LAB HEMETOLOGY METHOD 06/03/2024 11:27 AM [facility] LAB MPV 10.8 7.0 - 11.0 FL LAB HEMETOLOGY METHOD 06/03/2024 11:27 AM [facility] LAB NRBC 0.0 <1.0 % LAB HEMETOLOGY METHOD 06/03/2024 11:27 AM [facility] LAB NRBC Absolute 0.00 <0.10 K/mcL LAB HEMETOLOGY METHOD 06/03/2024 11:27 AM [facility] LAB Neutrophils Relative 64.3 % LAB HEMETOLOGY METHOD 06/03/2024 11:27 AM [facility] LAB Lymphocytes Relative 19.3 % LAB HEMETOLOGY METHOD 06/03/2024 11:27 AM [facility] LAB Monocytes Relative 13.5 % LAB HEMETOLOGY METHOD 06/03/2024 11:27 AM [facility] LAB Eosinophils Relative 2.0 % LAB HEMETOLOGY METHOD 06/03/2024 11:27 AM [facility] LAB Basophils Relative 0.5 % LAB HEMETOLOGY METHOD 06/03/2024 11:27 AM [facility] LAB Immature Granulocytes Relative 0.4 % LAB HEMETOLOGY METHOD 06/03/2024 11:27 AM [facility] LAB Neutrophils Absolute 3.63 1.50 - 7.00 K/mcL LAB HEMETOLOGY METHOD 06/03/2024 11:27 AM [facility] LAB Lymphocytes Absolute 1.09 1.00 - 5.00 K/mcL LAB HEMETOLOGY METHOD 06/03/2024 11:27 AM [facility] LAB Monocytes Absolute 0.76 0.20 - 1.00 K/mcL LAB HEMETOLOGY METHOD 06/03/2024 11:27 AM [facility] LAB Eosinophils Absolute 0.11 0.00 - 0.50 K/mcL LAB HEMETOLOGY METHOD 06/03/2024 11:27 AM EST [facility] LAB Basophils Absolute 0.03 0.00 - 0.20 K/[facility] LAB HEMETOLOGY METHOD 06/03/2024 11:27 AM EST [facility] LAB Immature Granulocytes Absolute 0.02 0.00 - 0.03 K/[facility] LAB HEMETOLOGY METHOD 06/03/2024 11:27 AM EST [facility] LAB Blood Venous blood specimen / Unknown Venipuncture / Unknown 06/03/2024 6:18 AM EST 06/03/2024 10:27 AM EST Braydon Sykes MD LAB BLOOD ORDERABLES Final Res ult Performing Organization Address City/[facility]/ZIP Co de Phone Number [facility] LAB [address] [place] [address], [place] [phone] * Magnesium (06/03/2024 6:18 AM EST) Magnesium 2.3 1.9 - 2.6 mg/dL LAB CHEMISTRY METHOD 06/03/2024 11:57 AM EST [facility] LAB Blood Venous blood specimen / Unknown Venipuncture / Unknown 06/03/2024 6:18 AM EST 06/03/2024 10:27 AM EST us Braydon Sykes MD LAB BLOOD ORDERABLES Final Res ult [facility] [address] [place] [address], [place] [phone] * (ABNORMAL) Comprehensive metabolic panel (06/03/2024 6:18 AM EST) Sodium 136 133 - 145 mmol/L LAB CHEMISTRY METHOD 06/03/2024 11:57 AM EST [facility] LAB Potassium 4.1 3.5 - 5.5 mmol/L LAB CHEMISTRY METHOD 06/03/2024 11:57 AM [facility] LAB Chloride 104 96 - 110 mmol/L LAB CHEMISTRY METHOD 06/03/2024 11:57 AM [facility] LAB CO2 24 21 - 32 mmol/L LAB CHEMISTRY METHOD 06/03/2024 11:57 AM [facility] LAB Anion Gap 8 3 - 11 LAB CHEMISTRY METHOD 06/03/2024 11:57 AM [facility] LAB Glucose 83 70 - 100 mg/dL LAB CHEMISTRY METHOD 06/03/2024 11:57 AM [facility] LAB BUN 14 5 - 25 mg/dL LAB CHEMISTRY METHOD 06/03/2024 11:57 AM [facility] LAB Creatinine 0.58 0.50 - 1.10 mg/dL LAB CHEMISTRY METHOD 06/03/2024 11:57 AM [facility] LAB eGFR 108 >=60 mL/min/1. 73m2 LAB CHEMISTRY METHOD 06/03/2024 11:57 AM [facility] LAB Comment:Calculation based on the??Chronic Kidney Disease Epidemiology Collaboration (CKD-EPI) equation refit??without adjustment for race. BUN/Creatinine Ratio 24.1 LAB CHEMISTRY METHOD 06/03/2024 11:57 AM [facility] LAB Calcium 9.1 8.5 - 10.5 mg/dL LAB CHEMISTRY METHOD 06/03/2024 11:57 AM [facility] LAB AST (SGOT) 36 10 - 42 unit/L LAB CHEMISTRY METHOD 06/03/2024 11:57 AM [facility] LAB ALT (SGPT) 43 10 - 60 unit/L LAB CHEMISTRY METHOD 06/03/2024 11:57 AM [facility] LAB Alkaline Phosphatase 148(H) 42 - 121 unit/L LAB CHEMISTRY METHOD 06/03/2024 11:57 AM [facility] LAB Total Protein 6.2 6.0 - 8.0 g/dL LAB CHEMISTRY METHOD 06/03/2024 11:57 AM [facility] LAB Albumin 3.5 3.2 - 5.0 g/dL LAB CHEMISTRY METHOD 06/03/2024 11:57 AM EST [facility] LAB Total Bilirubin 0.2 0.0 - 1.4 mg/dL LAB CHEMISTRY METHOD 06/03/2024 11:57 AM EST [facility] LAB Blood Venous blood specimen / Unknown Venipuncture / Unknown 06/03/2024 6:18 AM EST 06/03/2024 10:27 AM EST us Braydon Sykes MD LAB BLOOD ORDERABLES Final Res ult [facility]) [facility] LAB [address] [place] [address], [place] [phone] from Last 3 Months Insurance MEDICAID - [place] Care Teams Slip Tender Relationship Specialty Start Date End Date Braydon Sykes MD [address] [place] [phone] PCP - General Internal Medicine 06/03/24
--- OUTSIDE RECORDS SUMMARY | 2024-07-29 08:25 | XMS_ITS | Encounter Summary ---
Author Organization [facility] Address [address] [place] [address] Care Team Providers Care Educational Programming Director Name Role Phone Braydon Sykes MD Primary Care Provider [phone] Encounter Details Date Type Department Care Team (Late st Contact Info) Description 06/09/2024 Lab Requisition [facility] Lab [address] [place] [address] Braydon Sykes MD [address] [place] [phone] Encounter for other general examination Social History [...] AM EST) WBC 5.6 4.8 - 10.8 K/[facility] LAB HEMETOLOGY METHOD 06/09/2024 8:24 AM EST [facility] LAB RBC 4.40 3.80 - 4.80 M/[facility] LAB HEMETOLOGY METHOD 06/09/2024 8:24 AM EST [facility] LAB Hemoglobin 12.1 11.5 - 16.0 g/dL LAB HEMETOLOGY METHOD 06/09/2024 8:24 AM [facility] LAB Hematocrit 39.2 35.0 - 47.0 % LAB HEMETOLOGY METHOD 06/09/2024 8:24 AM [facility] LAB MCV 89.9 79.0 - 98.0 FL LAB HEMETOLOGY METHOD 06/09/2024 8:24 AM [facility] LAB MCH 27.8 27.0 - 32.0 pcg LAB HEMETOLOGY METHOD 06/09/2024 8:24 AM [facility] LAB MCHC 30.9(L) 32.0 - 37.0 g/dL LAB HEMETOLOGY METHOD 06/09/2024 8:24 AM [facility] LAB RDW 14.8 11.0 - 15.0 % LAB HEMETOLOGY METHOD 06/09/2024 8:24 AM [facility] LAB Platelets 245 130 - 400 K/mcL LAB HEMETOLOGY METHOD 06/09/2024 8:24 AM [facility] LAB MPV 10.5 7.0 - 11.0 FL LAB HEMETOLOGY METHOD 06/09/2024 8:24 AM [facility] LAB NRBC 0.5 <1.0 % LAB HEMETOLOGY METHOD 06/09/2024 8:24 AM [facility] LAB NRBC Absolute 0.03 <0.10 K/mcL LAB HEMETOLOGY METHOD 06/09/2024 8:24 AM [facility] LAB Blood Venous blood specimen / Unknown Venipuncture / Unknown 06/09/2024 6:00 AM EST 06/09/2024 7:30 AM EST us Braydon Sykes MD LAB BLOOD ORDERABLES Final Res ult [facility] LAB [address] [place] [address], * Basic metabolic panel (06/09/2024 6:00 AM EST) Sodium 136 133 - 145 mmol/L LAB CHEMISTRY METHOD 06/09/2024 8:20 AM [facility] LAB Potassium 4.4 3.5 - 5.5 mmol/L LAB CHEMISTRY METHOD 06/09/2024 8:20 AM [facility] LAB Chloride 105 96 - 110 mmol/L LAB CHEMISTRY METHOD 06/09/2024 8:20 AM [facility] LAB CO2 22 21 - 32 mmol/L LAB CHEMISTRY METHOD 06/09/2024 8:20 AM [facility] LAB Anion Gap 9 3 - 11 LAB CHEMISTRY METHOD 06/09/2024 8:20 AM [facility] LAB Glucose 74 70 - 100 mg/dL LAB CHEMISTRY METHOD 06/09/2024 8:20 AM [facility] LAB BUN 14 5 - 25 mg/dL LAB CHEMISTRY METHOD 06/09/2024 8:20 AM [facility] LAB Creatinine 0.65 0.50 - 1.10 mg/dL LAB CHEMISTRY METHOD 06/09/2024 8:20 AM [facility] LAB eGFR 105 >=60 mL/min/1. 73m2 LAB CHEMISTRY METHOD 06/09/2024 8:20 AM [facility] LAB Comment:Calculation based on the??Chronic Kidney Disease Epidemiology Collaboration (CKD-EPI) equation refit??without adjustment for race. BUN/Creatinine Ratio 21.5 LAB CHEMISTRY METHOD 06/09/2024 8:20 AM [facility] LAB Calcium 9.0 8.5 - 10.5 mg/dL LAB CHEMISTRY METHOD 06/09/2024 8:20 AM [facility] LAB Blood Venous blood specimen / Unknown Venipuncture / Unknown 06/09/2024 6:00 AM EST 06/09/2024 7:30 AM EST us Braydon Sykes MD LAB BLOOD ORDERABLES [facility] LAB [address] [place] [address], [place] [phone] documented in this encounter Visit Diagnoses Diagnosis Encounter for other general examination documented in this encounter Care Teams Educational Programming Director Relationship Specialty Start Date End Date Braydon Sykes MD [address] [place] [phone] PCP - General Internal Medicine 06/03/24 documented as of this encounter
--- OUTSIDE RECORDS SUMMARY | 2024-07-29 08:25 | XMS_ITS | Encounter Summary ---
Author Organization [facility] Address [address] [place] [address] Care Team Providers Care Wink Cutter Operator Name Role Phone Braydon Sykes MD Primary Care Provider [phone] Encounter Details Date Type Department Care Team (Late st Contact Info) Description 06/03/2024 Lab Requisition [facility] - Main Lab [address] [facility] [place] [address] Braydon Sykes MD [address] [place] [phone] Encounter for other general examination Social History [...] AM EST) WBC 5.6 4.8 - 10.8 K/[facility] LAB HEMETOLOGY METHOD 06/03/2024 11:27 AM [facility] LAB RBC 4.80 3.80 - 4.80 M/[facility] LAB HEMETOLOGY METHOD 06/03/2024 11:27 AM [facility] LAB Hemoglobin 12.8 11.5 - 16.0 g/dL LAB HEMETOLOGY METHOD 06/03/2024 11:27 AM [facility] LAB Hematocrit 39.8 35.0 - 47.0 % LAB HEMETOLOGY METHOD 06/03/2024 11:27 AM [facility] LAB MCV 82.2 79.0 - 98.0 FL LAB HEMETOLOGY METHOD 06/03/2024 11:27 AM [facility] LAB MCH 26.4(L) 27.0 - 32.0 pcg LAB HEMETOLOGY METHOD 06/03/2024 11:27 AM [facility] LAB MCHC 32.2 32.0 - 37.0 g/dL LAB HEMETOLOGY METHOD 06/03/2024 11:27 AM [facility] LAB RDW 14.2 11.0 - 15.0 % LAB HEMETOLOGY METHOD 06/03/2024 11:27 AM [facility] LAB Platelets 199 130 - 400 K/[facility] LAB HEMETOLOGY METHOD 06/03/2024 11:27 AM [facility] LAB MPV 10.8 7.0 - 11.0 FL LAB HEMETOLOGY METHOD 06/03/2024 11:27 AM [facility] LAB NRBC 0.0 <1.0 % LAB HEMETOLOGY METHOD 06/03/2024 11:27 AM [facility] LAB NRBC Absolute 0.00 <0.10 K/[facility] LAB HEMETOLOGY METHOD 06/03/2024 11:27 AM [facility] LAB Neutrophils Relative 64.3 % LAB HEMETOLOGY METHOD 06/03/2024 11:27 AM [facility] LAB Lymphocytes Relative 19.3 % LAB HEMETOLOGY METHOD 06/03/2024 11:27 AM [facility] LAB Monocytes Relative 13.5 % LAB HEMETOLOGY METHOD 06/03/2024 11:27 AM [facility] LAB Eosinophils Relative 2.0 % LAB HEMETOLOGY METHOD 06/03/2024 11:27 AM [facility] LAB Basophils Relative 0.5 % LAB HEMETOLOGY METHOD 06/03/2024 11:27 AM [facility] LAB Immature Granulocytes Relative 0.4 % LAB HEMETOLOGY METHOD 06/03/2024 11:27 AM [facility] LAB Neutrophils Absolute 3.63 1.50 - 7.00 K/mcL LAB HEMETOLOGY METHOD 06/03/2024 11:27 AM [facility] LAB Lymphocytes Absolute 1.09 1.00 - 5.00 K/mcL LAB HEMETOLOGY METHOD 06/03/2024 11:27 AM [facility] LAB Monocytes Absolute 0.76 0.20 - 1.00 K/mcL LAB HEMETOLOGY METHOD 06/03/2024 11:27 AM [facility] LAB Eosinophils Absolute 0.11 0.00 - 0.50 K/mcL LAB HEMETOLOGY METHOD 06/03/2024 11:27 AM [facility] LAB Basophils Absolute 0.03 0.00 - 0.20 K/mcL LAB HEMETOLOGY METHOD 06/03/2024 11:27 AM [facility] LAB Immature Granulocytes Absolute 0.02 0.00 - 0.03 K/mcL LAB HEMETOLOGY METHOD 06/03/2024 11:27 AM [facility] LAB Blood Venous blood specimen / Unknown Venipuncture / Unknown 06/03/2024 6:18 AM EST 06/03/2024 10:27 AM EST Braydon Sykes MD LAB BLOOD ORDERABLES Final Res ult Performing Organization Address [facility]/ZIP Co de Phone Number [facility] [address] [place] [address], [place] [phone] * Magnesium (06/03/2024 6:18 AM EST) Pathologist [facility] Magnesium 2.3 1.9 - 2.6 mg/dL LAB CHEMISTRY METHOD 06/03/2024 11:57 AM EST [facility] Blood Venous blood specimen / Unknown Venipuncture / Unknown 06/03/2024 6:18 AM EST 06/03/2024 10:27 AM EST Braydon Sykes MD LAB BLOOD ORDERABLES Final Res ult Performing Organization Address [facility]/ZIP Co de Phone Number [facility] [address] [place] [address], [place] [phone] * (ABNORMAL) Comprehensive metabolic panel (06/03/2024 6:18 AM EST) [facility] Sodium 136 133 - 145 mmol/L LAB CHEMISTRY METHOD 06/03/2024 11:57 AM [facility] LAB Potassium 4.1 3.5 - 5.5 mmol/L LAB CHEMISTRY METHOD 06/03/2024 11:57 AM [facility] LAB Chloride 104 96 - 110 mmol/L LAB CHEMISTRY METHOD 06/03/2024 11:57 AM [facility] LAB CO2 24 21 - 32 mmol/L LAB CHEMISTRY METHOD 06/03/2024 11:57 AM [facility] LAB Anion Gap 8 3 - 11 LAB CHEMISTRY METHOD 06/03/2024 11:57 AM [facility] LAB Glucose 83 70 - 100 mg/dL LAB CHEMISTRY METHOD 06/03/2024 11:57 AM [facility] LAB BUN 14 5 - 25 mg/dL LAB CHEMISTRY METHOD 06/03/2024 11:57 AM [facility] LAB Creatinine 0.58 0.50 - 1.10 mg/dL LAB CHEMISTRY METHOD 06/03/2024 11:57 AM [facility] LAB eGFR 108 >=60 mL/min/1. 73m2 LAB CHEMISTRY METHOD 06/03/2024 11:57 AM [facility] LAB Comment:Calculation based on the??Chronic Kidney Disease Epidemiology Collaboration (CKD-EPI) equation refit??without adjustment for race. BUN/Creatinine Ratio 24.1 LAB CHEMISTRY METHOD 06/03/2024 11:57 AM [facility] LAB Calcium 9.1 8.5 - 10.5 mg/dL LAB CHEMISTRY METHOD 06/03/2024 11:57 AM [facility] LAB AST (SGOT) 36 10 - 42 unit/L LAB CHEMISTRY METHOD 06/03/2024 11:57 AM [facility] LAB ALT (SGPT) 43 10 - 60 unit/L LAB CHEMISTRY METHOD 06/03/2024 11:57 AM [facility] LAB Alkaline Phosphatase 148(H) 42 - 121 unit/L LAB CHEMISTRY METHOD 06/03/2024 11:57 AM [facility] LAB Total Protein 6.2 6.0 - 8.0 g/dL LAB CHEMISTRY METHOD 06/03/2024 11:57 AM [facility] LAB Albumin 3.5 3.2 - 5.0 g/dL LAB CHEMISTRY METHOD 06/03/2024 11:57 AM [facility] LAB Total Bilirubin 0.2 0.0 - 1.4 mg/dL LAB CHEMISTRY METHOD 06/03/2024 11:57 AM [facility] LAB Blood Venous blood specimen / Unknown Venipuncture / Unknown 06/03/2024 6:18 AM EST 06/03/2024 10:27 AM EST us Braydon Sykes MD LAB BLOOD ORDERABLES Final Res ult [facility] [address] [place] [address], documented in this encounter Visit Diagnoses Diagnosis Encounter for other general examination documented in this encounter Care Teams Wink Cutter Operator Relationship Specialty Start Date End Date Braydon Sykes MD [address] [place] [phone] PCP - General Internal Medicine 06/03/24 documented as of this encounter
== END 2024-07-29 08:45 | disposition home or self-care (01) ==
LOC: HO.HCS 08:12
PROVIDERS: PCP Internal Medicine; Visit Provider Nurse Practitioner Family
DX: G43.109 Migraine with aura, not intractable, without status migrainosus (principal); R94.31 Abnormal electrocardiogram [ECG] [EKG]; R09.89 Other specified symptoms and signs involving the circulatory and respiratory systems; Q21.12 Patent foramen ovale; Z09 Encounter for follow-up examination after completed treatment for conditions other than malignant neoplasm; R00.2 Palpitations
CPT/HCPCS: 99214; G2211

== ENCOUNTER → 2024-07-29 08:11 | Outpatient (BNVA) | payer OTHER, SELFPAY | PROVIDERS: PCP Internal Medicine; Visit Provider Nurse Practitioner Family | DX: G43.109 Migraine with aura, not intractable, without status migrainosus (principal); R94.31 Abnormal electrocardiogram [ECG] [EKG]; R09.89 Other specified symptoms and signs involving the circulatory and respiratory systems; Q21.12 Patent foramen ovale; R00.2 Palpitations; E66.9 Obesity, unspecified; Z09 Encounter for follow-up examination after completed treatment for conditions other than malignant neoplasm; Z68.37 Body mass index [BMI] 37.0-37.9, adult | CPT/HCPCS: 99212 ==

== ENCOUNTER 2024-08-02 09:44 | Outpatient (AMB) | payer OTHER, SELFPAY ==
--- NOTE | 2024-08-02 09:49 | MHC.PC.OV ---
Intake Visit Reasons: Fmla paperwork Allergies niacin [Niaspan Extended-Release] Allergy (Intermediate, Verified 07/29/24 08:17) skin blisters tramadol Allergy (Intermediate, Verified 07/29/24 08:17) seizures barley [BARLEY] Allergy (Unknown, Verified 07/29/24 08:17) UNKNOWN fluticasone [Advair Diskus] Allergy (Unknown, Verified 07/29/24 08:17) Shortness of Breath ibuprofen Allergy (Unknown, Verified 07/29/24 08:17) Swelling naratriptan Allergy (Unknown, Verified 07/29/24 08:17) unknown Penicillins [PENICILLINS] Allergy (Unknown, Verified 07/29/24 08:17) Unknown sumatriptan Allergy (Unknown, Verified 07/29/24 08:17) unknown trazodone [TRAZODONE] Allergy (Unknown, Verified 07/29/24 08:17) UNKNOWN omalizumab [From Xolair] Adverse Reaction (Severe, Verified 07/29/24 08:17) Anaphylaxis rubber, unspecified Adverse Reaction (Severe, Verified 07/29/24 08:17) Unknown equate cough drops sugar free Allergy (Mild, Uncoded 07/29/24 08:17) Unknown silicone Adverse Reaction (Severe, Uncoded 07/29/24 08:17) Unknown vaseline Adverse Reaction (Severe, Uncoded 07/29/24 08:17) hives Medication List - Last Reconciled 08/02/24 by Thee Tay MD acetaminophen 1,000 mg PO Q6H PRN albuterol sulfate 90 mcg/actuation (Ventolin HFA) 2 puffs inhalation Q4H PRN [Blood pressure monitor As directed] bupropion HCl SR 150 mg PO BID@0800,1200 celecoxib 200 mg PO DAILY clonidine HCl 0.1 mg PO DAILY PRN cyclobenzaprine 5 mg PO ONCE PRN dexlansoprazole (Dexilant) 60 mg PO DAILY duloxetine mg PO DAILY duloxetine mg PO .once at PM dupilumab (Dupixent) 300 mg (2 mL) subcut Q2W 28 days [fall detection monitor As directed] fluticasone propion-salmeterol 500-50 mcg/dose (Advair Diskus) 1 ea inhalation BID fluticasone propionate 50 mcg/actuation (Flonase Allergy Relief) 2 sprays intranasal BID 90 days ipratropium-albuterol 0.5 mg-3 mg(2.5 mg base)/3 mL 3 mL inhalation Q4-6H PRN 30 days levothyroxine 150 mcg PO QAM 90 days lidocaine 4% 1 patch topical DAILY PRN lisinopril 5 mg PO DAILY loratadine 10 mg PO DAILY 30 days lorazepam (Ativan) 1 mg PO DAILY PRN montelukast 10 mg PO DAILY nystatin 1 appl topical BID PRN oxcarbazepine 150 mg PO BID topiramate 25 mg PO BID Tobacco use date assessed: 05/13/24 Dental Screening Dental Screen Date: 05/13/24 HPI Fmla paperwork HPI Details Patient is a 54-year-old female this is a telemedicine visit to fill her employment paperwork so she can collect unemployment Patient stopped working May 29 when she was evaluated in the hospital for complicated migraine patient was having neurological symptoms She was fired from her job on June 06, patient was working in [employer] At this time patient continued to have her symptoms of tingling and weakness 1 side of her body sometimes without migraines She has been evaluated by a neurologist already Her symptoms completely resolved after She have a diagnosis of PTSD Hemiplegic migraine Small vessel ischemic changes on MRI Paperwork filled Dates listed on a paperwork are starting from 05/29/2023 until 09/27/2023 [facility] Medical History Hospital discharge follow-up Other specified hypothyroidism Colon cancer screening Left sided abdominal pain Influenza A H1N1 infection Stool incontinence Shoulder pain Anemia Bronchitis due to COVID-19 virus COVID Acute pneumonia Work related injury Acute diarrhea Paresthesias in left hand Dysuria PFO (patent foramen ovale) Shortness of breath Community acquired pneumonia Chronic idiopathic constipation Pre-op examination Encounter for routine gynecological examination LFT elevation Encounter for general adult medical examination with abnormal findings Respiratory tract congestion with cough Hospital discharge follow-up COVID-19 Tracheobronchitis COVID-19 Iron deficiency anemia Shoulder pain, right Nausea and vomiting PFO (patent foramen ovale) History of transesophageal echocardiography (LAN) Colitis Abnormal angiogram of head COVID-19 Asthma Thyroid disease GERD (gastroesophageal reflux disease) Anemia Aneurysm Surgical History History of surgery of uterus H/O endoscopy History of H/O brain surgery History of colonoscopy Family History Father Diabetes Arthritis Diverticulitis Leukemia Mental health disorder Lung cancer Mother Anemia Arthritis Colon polyps Myocardial infarction Brother Crohn's disease Testicular cancer Brother Cancer Paternal Grandfather Leukemia Other Substance use disorder Social History Household Members: Spouse and Children Housing: House Are you a primary hourly caregiver to a significant other at home: No Do you presently have visiting nurse or other home services: No Alcohol intake: former Patient Tobacco Use Status: Former Tobacco user Tobacco use type: Cigarette Cigarettes Per Day: 10 e-Cigarette/Vaping Use: Never Used Second Hand Smoke Exposure: No Advance Directives Date on File: 04/09/21 service: No 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al status: employed 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: [employer]/ right hand dominant Cognitive needs: No Hearing needs: No Vision needs: Yes Questionnaire Thrive Questionnaire Date Thrive assessed: 05/13/24 MARKO-7 AMB Questionnaire MARKO-7 Date MARKO - 7 assessed: 06/16/24 Source: Developed by Drs. Masood Arredondo, Lesly Pruitt, Thor Del Cid and colleagues, with an educational phil from [employer]. Review of Systems Const Denies chills and Denies fever(s) ENT Denies epistaxis and Denies nasal discharge Card Denies chest pain Resp Denies chest congestion, Denies cough and Denies hemoptysis GI Denies diarrhea and Denies nausea Skin/Breast Denies rash Neuro Reports no additional complaints Psych Reports no additional complaints Endo Reports no additional complaints Physical exam (Primary Care) Tobacco/Smoking Status: Tobacco use Status Tobacco use date assessed 05/13/24 08/02/24 09:49 Patient Tobacco Use Status Former Tobacco user 08/02/24 09:49 Tobacco use type Cigarette 08/02/24 09:49 e-Cigarette/Vaping Use Never Used 08/02/24 09:49 Thrive Assessment: Date of Thrive Assessment Date Thrive assessed 05/13/24 08/02/24 09:49 Telehealth Telehealth Telehealth Platform: [facility] Location of provider rendering services: practice address Location of patient: address on file Patient Identification confirmed using: Name, : Yes Telehealth method: video Patient verbally consented to treatment: Yes Patient verbally consented to billing insurance company: Yes Patient informed of any privacy concerns related to visit: Yes Minutes spent on Phone/Video with Pt.: 13 Coding Level of Care Code Tele Est Pt Level 3 (99907) Diagnoses Complicated migraine G43.109 Assessment & Plan Assessment & Plan (1) Complicated migraine: Code(s): G43.109 - Migraine with aura, not intractable, without status migrainosus Category: Medical Plan: Recent C admit for left weakness. CT, CTA and MRI brain did not show evidence of acute infarct. The MRI did show mild small vessel ischemic changes. Her symptoms were thought to be related to complex migraine, Plan Patient is a 54-year-old female this is a telemedicine visit to fill her employment paperwork so she can collect unemployment Patient stopped working May 29 when she was evaluated in the hospital for complicated migraine patient was having neurological symptoms She was fired from her job on June 06, patient was working in [employer] At this time patient continued to have her symptoms of tingling and weakness 1 side of her body sometimes without migraines She has been evaluated by a neurologist already Her symptoms completely resolved after She have a diagnosis of PTSD Hemiplegic migraine Small vessel ischemic changes on MRI Paperwork filled Dates listed on a paperwork are starting from 05/29/2023 until 09/27/2023
--- OUTSIDE RECORDS SUMMARY | 2024-08-02 11:07 | XMS_ITS | Encounter Summary ---
Author Organization [facility] Address [address] [place] [address] Care Team Providers Care Land Inspector Name Role Phone Braydon Sykes MD Primary Care Provider [phone] Encounter Details Date Type Department Care Team (Late st Contact Info) Description 06/09/2024 Lab Requisition [facility] - Main Lab [address] [place] [address] Braydon Sykes MD [address] [place] [id number] Encounter for other general examination Social History [...] EST) WBC 5.6 4.8 - 10.8 K/[facility] LAB HEMETOLOGY METHOD 06/09/2024 8:24 AM EST [facility] LAB RBC 4.40 3.80 - 4.80 M/[facility] LAB HEMETOLOGY METHOD 06/09/2024 8:24 AM EST [facility] LAB Hemoglobin 12.1 11.5 - 16.0 g/dL LAB HEMETOLOGY METHOD 06/09/2024 8:24 AM [facility] LAB Hematocrit 39.2 35.0 - 47.0 % LAB HEMETOLOGY METHOD 06/09/2024 8:24 AM [facility] LAB MCV 89.9 79.0 - 98.0 FL LAB HEMETOLOGY METHOD 06/09/2024 8:24 AM [facility] LAB MCH 27.8 27.0 - 32.0 pcg LAB HEMETOLOGY METHOD 06/09/2024 8:24 AM [facility] LAB MCHC 30.9(L) 32.0 - 37.0 g/dL LAB HEMETOLOGY METHOD 06/09/2024 8:24 AM [facility] LAB RDW 14.8 11.0 - 15.0 % LAB HEMETOLOGY METHOD 06/09/2024 8:24 AM [facility] LAB Platelets 245 130 - 400 K/mcL LAB HEMETOLOGY METHOD 06/09/2024 8:24 AM [facility] LAB MPV 10.5 7.0 - 11.0 FL LAB HEMETOLOGY METHOD 06/09/2024 8:24 AM [facility] LAB NRBC 0.5 <1.0 % LAB HEMETOLOGY METHOD 06/09/2024 8:24 AM [facility] LAB NRBC Absolute 0.03 <0.10 K/mcL LAB HEMETOLOGY METHOD 06/09/2024 8:24 AM [facility] LAB Blood Venous blood specimen / Unknown Venipuncture / Unknown 06/09/2024 6:00 AM EST 06/09/2024 7:30 AM EST us Braydon Sykes MD LAB BLOOD ORDERABLES Final Res ult [facility] LAB [address] [place] [address], * Basic metabolic panel (06/09/2024 6:00 AM EST) Sodium 136 133 - 145 mmol/L LAB CHEMISTRY METHOD 06/09/2024 8:20 AM [facility] LAB Potassium 4.4 3.5 - 5.5 mmol/L LAB CHEMISTRY METHOD 06/09/2024 8:20 AM [facility] LAB Chloride 105 96 - 110 mmol/L LAB CHEMISTRY METHOD 06/09/2024 8:20 AM [facility] LAB CO2 22 21 - 32 mmol/L LAB CHEMISTRY METHOD 06/09/2024 8:20 AM [facility] LAB Anion Gap 9 3 - 11 LAB CHEMISTRY METHOD 06/09/2024 8:20 AM [facility] LAB Glucose 74 70 - 100 mg/dL LAB CHEMISTRY METHOD 06/09/2024 8:20 AM [facility] LAB BUN 14 5 - 25 mg/dL LAB CHEMISTRY METHOD 06/09/2024 8:20 AM [facility] LAB Creatinine 0.65 0.50 - 1.10 mg/dL LAB CHEMISTRY METHOD 06/09/2024 8:20 AM [facility] LAB eGFR 105 >=60 mL/min/1. 73m2 LAB CHEMISTRY METHOD 06/09/2024 8:20 AM [facility] LAB Comment:Calculation based on the??Chronic Kidney Disease Epidemiology Collaboration (CKD-EPI) equation refit??without adjustment for race. BUN/Creatinine Ratio 21.5 LAB CHEMISTRY METHOD 06/09/2024 8:20 AM [facility] LAB Calcium 9.0 8.5 - 10.5 mg/dL LAB CHEMISTRY METHOD 06/09/2024 8:20 AM [facility] LAB Blood Venous blood specimen / Unknown Venipuncture / Unknown 06/09/2024 6:00 AM EST 06/09/2024 7:30 AM EST us Braydon Sykes MD LAB BLOOD ORDERABLES Final Res [facility] [address] [place] [address], [place] [phone] documented in this encounter Visit Diagnoses Diagnosis Encounter for other general examination documented in this encounter Care Teams Land Inspector Relationship Specialty Start Date End Date Braydon Sykes MD [address] [place] [phone] PCP - General Internal Medicine 06/03/24 documented as of this encounter
--- OUTSIDE RECORDS SUMMARY | 2024-08-02 11:07 | XMS_ITS | Encounter Summary ---
Author Organization [facility] Address [address] [place] [address] Care Team Providers Care Truck Assembler Name Role Phone Braydon Sykes MD Primary Care Provider [phone] Encounter Details Date Type Department Care Team (Late st Contact Info) Description 06/03/2024 Lab Requisition [facility] - Main Lab [address] [facility] [place] [address] Braydon Sykes MD [address] [place] [id number] Encounter for other general examination Social History [...] AM EST) WBC 5.6 4.8 - 10.8 K/[facility] LAB HEMETOLOGY METHOD 06/03/2024 11:27 AM [facility] LAB RBC 4.80 3.80 - 4.80 M/[facility] LAB HEMETOLOGY METHOD 06/03/2024 11:27 AM [facility] LAB Hemoglobin 12.8 11.5 - 16.0 g/dL LAB HEMETOLOGY METHOD 06/03/2024 11:27 AM [facility] LAB Hematocrit 39.8 35.0 - 47.0 % LAB HEMETOLOGY METHOD 06/03/2024 11:27 AM [facility] LAB MCV 82.2 79.0 - 98.0 FL LAB HEMETOLOGY METHOD 06/03/2024 11:27 AM [facility] LAB MCH 26.4(L) 27.0 - 32.0 pcg LAB HEMETOLOGY METHOD 06/03/2024 11:27 AM [facility] LAB MCHC 32.2 32.0 - 37.0 g/dL LAB HEMETOLOGY METHOD 06/03/2024 11:27 AM [facility] LAB RDW 14.2 11.0 - 15.0 % LAB HEMETOLOGY METHOD 06/03/2024 11:27 AM [facility] LAB Platelets 199 130 - 400 K/[facility] LAB HEMETOLOGY METHOD 06/03/2024 11:27 AM [facility] LAB MPV 10.8 7.0 - 11.0 FL LAB HEMETOLOGY METHOD 06/03/2024 11:27 AM [facility] LAB NRBC 0.0 <1.0 % LAB HEMETOLOGY METHOD 06/03/2024 11:27 AM [facility] LAB NRBC Absolute 0.00 <0.10 K/[facility] LAB HEMETOLOGY METHOD 06/03/2024 11:27 AM [facility] LAB Neutrophils Relative 64.3 % LAB HEMETOLOGY METHOD 06/03/2024 11:27 AM [facility] LAB Lymphocytes Relative 19.3 % LAB HEMETOLOGY METHOD 06/03/2024 11:27 AM [facility] LAB Monocytes Relative 13.5 % LAB HEMETOLOGY METHOD 06/03/2024 11:27 AM [facility] LAB Eosinophils Relative 2.0 % LAB HEMETOLOGY METHOD 06/03/2024 11:27 AM [facility] LAB Basophils Relative 0.5 % LAB HEMETOLOGY METHOD 06/03/2024 11:27 AM [facility] LAB Immature Granulocytes Relative 0.4 % LAB HEMETOLOGY METHOD 06/03/2024 11:27 AM [facility] LAB Neutrophils Absolute 3.63 1.50 - 7.00 K/mcL LAB HEMETOLOGY METHOD 06/03/2024 11:27 AM [facility] LAB Lymphocytes Absolute 1.09 1.00 - 5.00 K/mcL LAB HEMETOLOGY METHOD 06/03/2024 11:27 AM [facility] LAB Monocytes Absolute 0.76 0.20 - 1.00 K/mcL LAB HEMETOLOGY METHOD 06/03/2024 11:27 AM [facility] LAB Eosinophils Absolute 0.11 0.00 - 0.50 K/mcL LAB HEMETOLOGY METHOD 06/03/2024 11:27 AM [facility] LAB Basophils Absolute 0.03 0.00 - 0.20 K/mcL LAB HEMETOLOGY METHOD 06/03/2024 11:27 AM [facility] LAB Immature Granulocytes Absolute 0.02 0.00 - 0.03 K/mcL LAB HEMETOLOGY METHOD 06/03/2024 11:27 AM [facility] LAB Blood Venous blood specimen / Unknown Venipuncture / Unknown 06/03/2024 6:18 AM EST 06/03/2024 10:27 AM EST Braydon Sykes MD LAB BLOOD ORDERABLES Final Res ult Performing Organization Address [facility]/ZIP Co de Phone Number [facility] LAB [address] [place] [address], [place] [phone] * Magnesium (06/03/2024 6:18 AM EST) Pathologist [facility] Magnesium 2.3 1.9 - 2.6 mg/dL LAB CHEMISTRY METHOD 06/03/2024 11:57 AM EST [facility] LAB Blood Venous blood specimen / Unknown Venipuncture / Unknown 06/03/2024 6:18 AM EST 06/03/2024 10:27 AM EST Braydon Sykes MD LAB BLOOD ORDERABLES Final Res ult Performing Organization Address [facility]/ZIP Co de Phone Number [facility] [address] [place] [address], [place] [phone] * (ABNORMAL) Comprehensive metabolic panel (06/03/2024 6:18 AM EST) [facility] Sodium 136 133 - 145 mmol/L LAB CHEMISTRY METHOD 06/03/2024 11:57 AM [facility] LAB Potassium 4.1 3.5 - 5.5 mmol/L LAB CHEMISTRY METHOD 06/03/2024 11:57 AM [facility] LAB Chloride 104 96 - 110 mmol/L LAB CHEMISTRY METHOD 06/03/2024 11:57 AM [facility] LAB CO2 24 21 - 32 mmol/L LAB CHEMISTRY METHOD 06/03/2024 11:57 AM [facility] LAB Anion Gap 8 3 - 11 LAB CHEMISTRY METHOD 06/03/2024 11:57 AM [facility] LAB Glucose 83 70 - 100 mg/dL LAB CHEMISTRY METHOD 06/03/2024 11:57 AM [facility] LAB BUN 14 5 - 25 mg/dL LAB CHEMISTRY METHOD 06/03/2024 11:57 AM [facility] LAB Creatinine 0.58 0.50 - 1.10 mg/dL LAB CHEMISTRY METHOD 06/03/2024 11:57 AM [facility] LAB eGFR 108 >=60 mL/min/1. 73m2 LAB CHEMISTRY METHOD 06/03/2024 11:57 AM [facility] LAB Comment:Calculation based on the??Chronic Kidney Disease Epidemiology Collaboration (CKD-EPI) equation refit??without adjustment for race. BUN/Creatinine Ratio 24.1 LAB CHEMISTRY METHOD 06/03/2024 11:57 AM [facility] LAB Calcium 9.1 8.5 - 10.5 mg/dL LAB CHEMISTRY METHOD 06/03/2024 11:57 AM [facility] LAB AST (SGOT) 36 10 - 42 unit/L LAB CHEMISTRY METHOD 06/03/2024 11:57 AM [facility] LAB ALT (SGPT) 43 10 - 60 unit/L LAB CHEMISTRY METHOD 06/03/2024 11:57 AM [facility] LAB Alkaline Phosphatase 148(H) 42 - 121 unit/L LAB CHEMISTRY METHOD 06/03/2024 11:57 AM [facility] LAB Total Protein 6.2 6.0 - 8.0 g/dL LAB CHEMISTRY METHOD 06/03/2024 11:57 AM [facility] LAB Albumin 3.5 3.2 - 5.0 g/dL LAB CHEMISTRY METHOD 06/03/2024 11:57 AM [facility] LAB Total Bilirubin 0.2 0.0 - 1.4 mg/dL LAB CHEMISTRY METHOD 06/03/2024 11:57 AM [facility] LAB Blood Venous blood specimen / Unknown Venipuncture / Unknown 06/03/2024 6:18 AM EST 06/03/2024 10:27 AM EST us Braydon Sykes MD LAB BLOOD ORDERABLES Final Res ult [facility] [address] [place] [address], documented in this encounter Visit Diagnoses Diagnosis Encounter for other general examination documented in this encounter Care Teams Truck Assembler Relationship Specialty Start Date End Date Braydon Sykes MD [address] [place] [phone] PCP - General Internal Medicine 06/03/24 documented as of this encounter
--- OUTSIDE RECORDS SUMMARY | 2024-08-02 11:07 | XMS_ITS | Clinical Summary ---
Author Organization [facility] Address [address] [place] [address] Phone Care Team Providers Care Integrity Director Name Role Phone Braydon Sykes MD Primary Care Provider [phone] Encounters Date Type Department Care Team Description 06/09/2024 Lab Requisition [facility] [address] [place] [phone] Braydon Sykes MD Encounter for other general examination 06/03/2024 Lab Requisition [facility] Lab [address] [place] [phone] Braydon Sykes MD Encounter for other general [...] age to complete this topic Meningococcal B Vaccine Aged Out No l onger eligible based on patient's age to complete [...] 06/09/2024 8:[address] [facility] RBC 4.40 3.80 - 4.80 M/mcL LAB HEMETOLOGY METHOD 06/09/2024 8:[address] [facility] Hemoglobin 12.1 11.5 - 16.0 [...] MD LAB BLOOD ORDERABLES Final Res ult [facility] [address] [place] [address], * Basic metabolic panel (06/09/2024 6:00 AM [...] MD LAB BLOOD ORDERABLES Final Res ult [facility] [address] [place] [address], * (ABNORMAL) CBC auto differential (06/03/2024 6:18 AM EST) WBC 5.6 4.8 - 10.8 K/mcL LAB HEMETOLOGY METHOD 06/03/2024 11:[address] [facility] RBC 4.80 3.80 - 4.80 M/mcL LAB HEMETOLOGY METHOD 06/03/2024 11:[address] [facility] Hemoglobin 12.8 11.5 - 16.0 g/dL LAB HEMETOLOGY METHOD 06/03/2024 11:[address] [facility] Hematocrit 39.8 35.0 - 47.0 % LAB HEMETOLOGY METHOD 06/03/2024 11:[address] [facility] MCV 82.2 79.0 - 98.0 FL LAB HEMETOLOGY METHOD 06/03/2024 11:[address] [facility] MCH 26.4(L) 27.0 - 32.0 pcg LAB HEMETOLOGY METHOD 06/03/2024 11:[address] [facility] MCHC 32.2 32.0 - 37.0 g/dL LAB HEMETOLOGY METHOD 06/03/2024 11:[address] [facility] RDW 14.2 11.0 - 15.0 % LAB HEMETOLOGY METHOD 06/03/2024 11:[address] [facility] Platelets 199 130 - 400 K/mcL LAB HEMETOLOGY METHOD 06/03/2024 11:[address] [facility] MPV 10.8 7.0 - 11.0 FL LAB HEMETOLOGY METHOD 06/03/2024 11:[address] [facility] NRBC 0.0 <1.0 % LAB HEMETOLOGY METHOD 06/03/2024 11:[address] [facility] NRBC Absolute 0.00 <0.10 K/mcL LAB HEMETOLOGY METHOD 06/03/2024 11:[address] [facility] Neutrophils Relative 64.3 % LAB HEMETOLOGY METHOD 06/03/2024 11:[address] [facility] Lymphocytes Relative 19.3 % LAB HEMETOLOGY METHOD 06/03/2024 11:[address] [facility] Monocytes Relative 13.5 % LAB HEMETOLOGY METHOD 06/03/2024 11:[address] [facility] Eosinophils Relative 2.0 % LAB HEMETOLOGY METHOD 06/03/2024 11:[address] [facility] Basophils Relative 0.5 % LAB HEMETOLOGY METHOD 06/03/2024 11:[address] [facility] Immature Granulocytes Relative 0.4 % LAB HEMETOLOGY METHOD 06/03/2024 11:[address] [facility] Neutrophils Absolute 3.63 1.50 - 7.00 K/mcL LAB HEMETOLOGY METHOD 06/03/2024 11:[address] [facility] Lymphocytes Absolute 1.09 1.00 - 5.00 K/mcL LAB HEMETOLOGY METHOD 06/03/2024 11:[address] [facility] Monocytes Absolute 0.76 0.20 - 1.00 K/mcL LAB HEMETOLOGY METHOD 06/03/2024 11:[address] [facility] Eosinophils Absolute 0.11 0.00 - 0.50 K/mcL LAB HEMETOLOGY METHOD 06/03/2024 11:27 AM EST [facility] Basophils Absolute 0.03 0.00 - 0.20 [facility] 06/03/2024 11:27 AM EST [facility] Immature Granulocytes Absolute 0.02 0.00 - 0.03 [facility] LAB HEMETOLOGY METHOD 06/03/2024 11:27 AM EST [facility] Blood Venous blood specimen / Unknown Venipuncture / Unknown 06/03/2024 6:18 AM EST 06/03/2024 10:27 AM EST Braydon Sykes MD LAB BLOOD ORDERABLES Final Res ult Performing Organization Address City/[facility]/ZIP Co de Phone Number [facility] [address] [place] [address], [place] [phone] * Magnesium (06/03/2024 6:18 AM EST) Magnesium 2.3 1.9 - 2.6 mg/dL LAB CHEMISTRY METHOD 06/03/2024 11:57 AM EST [facility] Blood Venous blood specimen / Unknown Venipuncture / Unknown 06/03/2024 6:18 AM EST 06/03/2024 10:27 AM EST us Braydon Sykes MD LAB BLOOD ORDERABLES Final Res ult [facility] [address] [place] [address], [place] [phone] * (ABNORMAL) Comprehensive metabolic panel (06/03/2024 6:18 AM EST) Sodium 136 133 - 145 mmol/L LAB CHEMISTRY METHOD 06/03/2024 11:57 AM EST [facility] Potassium 4.1 3.5 - 5.5 mmol/L LAB CHEMISTRY METHOD 06/03/2024 11:[address] [facility] Chloride 104 96 - 110 mmol/L LAB CHEMISTRY METHOD 06/03/2024 11:[address] [facility] CO2 24 21 - 32 mmol/L LAB CHEMISTRY METHOD 06/03/2024 11:[address] [facility] Anion Gap 8 3 - 11 LAB CHEMISTRY METHOD 06/03/2024 11:[address] [facility] Glucose 83 70 - 100 mg/dL LAB CHEMISTRY METHOD 06/03/2024 11:[address] [facility] BUN 14 5 - 25 mg/dL LAB CHEMISTRY METHOD 06/03/2024 11:[address] [facility] Creatinine 0.58 0.50 - 1.10 mg/dL LAB CHEMISTRY METHOD 06/03/2024 11:[address] [facility] eGFR 108 >=60 mL/min/1. 73m2 LAB CHEMISTRY METHOD 06/03/2024 11:[address] [facility] Comment:Calculation based on the??Chronic Kidney Disease Epidemiology Collaboration (CKD-EPI) equation refit??without adjustment for race. BUN/Creatinine Ratio 24.1 LAB CHEMISTRY METHOD 06/03/2024 11:[address] [facility] Calcium 9.1 8.5 - 10.5 mg/dL LAB CHEMISTRY METHOD 06/03/2024 11:[address] [facility] AST (SGOT) 36 10 - 42 unit/L LAB CHEMISTRY METHOD 06/03/2024 11:[address] [facility] ALT (SGPT) 43 10 - 60 unit/L LAB CHEMISTRY METHOD 06/03/2024 11:[address] [facility] Alkaline Phosphatase 148(H) 42 - 121 unit/L LAB CHEMISTRY METHOD 06/03/2024 11:[address] [facility] Total Protein 6.2 6.0 - 8.0 g/dL LAB CHEMISTRY METHOD 06/03/2024 11:[address] [facility] Albumin 3.5 3.2 - 5.0 g/dL LAB CHEMISTRY METHOD 06/03/2024 11:57 AM EST [facility] Total Bilirubin 0.2 0.0 - 1.4 mg/dL LAB CHEMISTRY METHOD 06/03/2024 11:57 AM EST [facility] Blood Venous blood specimen / Unknown Venipuncture / Unknown 06/03/2024 6:18 AM EST 06/03/2024 10:27 AM EST us Braydon Sykes MD LAB BLOOD ORDERABLES Final Res ult [facility] [address] [place] [address], [place] [phone] from Last 3 Months Insurance MEDICAID - [place] Care Teams Integrity Director Relationship Specialty Start Date End Date Braydon Sykes MD [address] [place] [phone] PCP - General Internal Medicine 06/03/24
== END 2024-08-02 10:11 | disposition home or self-care (01) ==
LOC: HO.HMCC 09:44
PROVIDERS: PCP Internal Medicine; Visit Provider Internal Medicine
DX: G43.109 Migraine with aura, not intractable, without status migrainosus (principal)

== ENCOUNTER → 2024-08-02 09:44 | Outpatient (BNVA) | payer OTHER, SELFPAY | PROVIDERS: PCP Internal Medicine; Visit Provider Internal Medicine ==

== ENCOUNTER → 2024-08-23 07:36 | Outpatient (REF) | payer OTHER, SELFPAY ==
--- OUTSIDE RECORDS SUMMARY | 2024-08-23 07:39 | XMS_ITS | Clinical Summary ---
Author Organization [facility] Address [address] [place] [address] Phone Care Team Providers Care Oracle Developer Name Role Phone Braydon Sykes MD Primary Care Provider [phone] Encounters Date Type Department Care Team Description 06/09/2024 Lab Requisition [facility] Lab [address] [place] [phone] Braydon Sykes MD Encounter for other general examination 06/03/2024 Lab Requisition [facility] Lab [address] [place] [phone] Braydon Sykes MD Encounter for other general [...] Vaccine ( - 2023-2 5 season) 2023 Colorectal Cancer Screening: Colonoscopy 06/03/2024 Depression Screening 06/03/2024 HIV Screening 06/03/2024 Hepatitis C Screening 06/03/2024 Social Influencers of Health Screening 06/03/2024 Influenza Vaccine (Season Ended) 2024 HIB Vaccines Aged Out No longer eligi [...] MD LAB BLOOD ORDERABLES Final Res ult [facility] [address] [place] [address], * Basic metabolic panel (06/09/2024 6:00 AM [...] MD LAB BLOOD ORDERABLES Final Res ult [facility] [address] [place] [address], * (ABNORMAL) CBC auto differential (06/03/2024 6:18 [...] LAB HEMETOLOGY METHOD 06/03/2024 11:27 AM EST [facility] Basophils Absolute 0.03 0.00 - 0.20 [facility] HEM[facility]Y METHOD 06/03/2024 11:27 AM EST [facility] Immature Granulocytes Absolute 0.02 0.00 - 0.03 [facility] LAB HEMETOLOGY METHOD 06/03/2024 11:27 AM EST [facility] Blood Venous blood specimen / Unknown Venipuncture / Unknown 06/03/2024 6:18 AM EST 06/03/2024 10:27 AM EST Braydon Sykes MD LAB BLOOD ORDERABLES Final Res ult Performing Organization Address City/[facility]/ZIP Co de Phone Number [facility] [address] [place] [address], [place] [phone] * Magnesium (06/03/2024 6:18 AM EST) Magnesium 2.3 1.9 - 2.6 mg/dL LAB CHEMISTRY METHOD 06/03/2024 11:57 AM EST [facility] Blood Venous blood specimen / Unknown Venipuncture / Unknown 06/03/2024 6:18 AM EST 06/03/2024 10:27 AM EST us Braydon Sykes MD LAB BLOOD ORDERABLES Final Res ult [facility] [address] [place] [address], [place] [phone] * (ABNORMAL) Comprehensive metabolic panel (06/03/2024 6:18 AM EST) Sodium 136 133 - 145 mmol/L LAB CHEMISTRY METHOD 06/03/2024 11:57 AM EST [facility] Potassium 4.1 3.5 [...] LAB CHEMISTRY METHOD 06/03/2024 11:57 AM EST [facility] Total Bilirubin 0.2 0.0 - 1.4 mg/dL LAB CHEMISTRY METHOD 06/03/2024 11:57 AM EST [facility] Blood Venous blood specimen / Unknown Venipuncture / Unknown 06/03/2024 6:18 AM EST 06/03/2024 10:27 AM EST us Braydon Sykes MD LAB BLOOD ORDERABLES Final Res ult [facility] [address] [place] [address], [place] [phone] from Last 3 Months Insurance [place]ICA[place] - [place] Care Teams Oracle Developer Relationship Specialty Start Date End Date Braydon Sykes MD [address] [place] [phone] PCP - General Internal Medicine 06/03/24
--- OUTSIDE RECORDS SUMMARY | 2024-08-23 07:39 | XMS_ITS | Encounter Summary ---
Author Organization [facility] Address [address] [place] [address] Care Team Providers Care Net Sorter Name Role Phone Braydon Sykes MD Primary Care Provider [phone] Encounter Details Date Type Department Care Team (Late st Contact Info) Description 06/09/2024 Lab Requisition [facility] Lab [address] [place] [address] Braydon Sykes MD [address] [place] [phone] Encounter for other general examination Social History [...] AM EST) WBC 5.6 4.8 - 10.8 [facility] HEM[facility]OLOGY METHOD 06/09/2024 8:24 AM EST [facility] RBC 4.40 3.80 - 4.80 M[facility] HEMETOLOGY METHOD 06/09/2024 8:24 AM EST [facility] Hemoglobin 12.1 11.5 - 16.0 g/dL LAB HEMETOLOGY METHOD 06/09/2024 8:24 AM [facility] Hematocrit 39.2 35.0 - 47.0 % LAB HEMETOLOGY METHOD 06/09/2024 8:24 AM [facility] MCV 89.9 79.0 - 98.0 FL LAB HEMETOLOGY METHOD 06/09/2024 8:24 AM [facility] MCH 27.8 27.0 - 32.0 pcg LAB HEMETOLOGY METHOD 06/09/2024 8:24 AM [facility] MCHC 30.9(L) 32.0 - 37.0 g/dL LAB HEMETOLOGY METHOD 06/09/2024 8:24 AM [facility] RDW 14.8 11.0 - 15.0 % LAB HEMETOLOGY METHOD 06/09/2024 8:24 AM [facility] Platelets 245 130 - 400 K/mcL LAB HEMETOLOGY METHOD 06/09/2024 8:24 AM [facility] MPV 10.5 7.0 - 11.0 FL LAB HEMETOLOGY METHOD 06/09/2024 8:24 AM [facility] NRBC 0.5 <1.0 % LAB HEMETOLOGY METHOD 06/09/2024 8:24 AM [facility] NRBC Absolute 0.03 <0.10 K/mcL LAB HEMETOLOGY METHOD 06/09/2024 8:24 AM [facility] Blood Venous blood specimen / Unknown Venipuncture / Unknown 06/09/2024 6:00 AM EST 06/09/2024 7:30 AM EST us Braydon Sykes MD LAB BLOOD ORDERABLES Final Res ult [facility] [address] [place] [address], * Basic metabolic panel (06/09/2024 6:00 AM EST) Sodium 136 133 - 145 mmol/L LAB CHEMISTRY METHOD 06/09/2024 8:20 AM [facility] Potassium 4.4 3.5 - 5.5 mmol/L LAB CHEMISTRY METHOD 06/09/2024 8:20 AM [facility] Chloride 105 96 - 110 mmol/L LAB CHEMISTRY METHOD 06/09/2024 8:20 AM [facility] CO2 22 21 - 32 mmol/L LAB CHEMISTRY METHOD 06/09/2024 8:20 AM [facility] Anion Gap 9 3 - 11 LAB CHEMISTRY METHOD 06/09/2024 8:20 AM [facility] Glucose 74 70 - 100 mg/dL LAB CHEMISTRY METHOD 06/09/2024 8:20 AM [facility] BUN 14 5 - 25 mg/dL LAB CHEMISTRY METHOD 06/09/2024 8:20 AM [facility] Creatinine 0.65 0.50 - 1.10 mg/dL LAB CHEMISTRY METHOD 06/09/2024 8:20 AM [facility] eGFR 105 >=60 mL/min/1. 73m2 LAB CHEMISTRY METHOD 06/09/2024 8:20 AM [facility] Comment:Calculation based on the??Chronic Kidney Disease Epidemiology Collaboration (CKD-EPI) equation refit??without adjustment for race. BUN/Creatinine Ratio 21.5 LAB CHEMISTRY METHOD 06/09/2024 8:20 AM [facility] Calcium 9.0 8.5 - 10.5 mg/dL LAB CHEMISTRY METHOD 06/09/2024 8:20 AM [facility] Blood Venous blood specimen / Unknown Venipuncture / Unknown 06/09/2024 6:00 AM EST 06/09/2024 7:30 AM EST us Braydon Sykes MD LAB BLOOD ORDERABLES Final Res [facility] [address] [place] [address], [place] [phone] documented in this encounter Visit Diagnoses Diagnosis Encounter for other general examination documented in this encounter Care Teams Net Sorter Relationship Specialty Start Date End Date Braydon Sykes MD [address] [place] [phone] PCP - General Internal Medicine 06/03/24 documented as of this encounter
--- OUTSIDE RECORDS SUMMARY | 2024-08-23 07:39 | XMS_ITS | Encounter Summary ---
Author Organization [facility] Address [address] [place] [address] Care Team Providers Care Codifier Name Role Phone Braydon Sykes MD Primary Care Provider [phone] Encounter Details Date Type Department Care Team (Late st Contact Info) Description 06/03/2024 Lab Requisition [facility] Lab [address] [facility] [place] [address] Braydon Sykes MD [address] [place] [phone] Encounter for other general examination Social History [...] AM EST) WBC 5.6 4.8 - 10.8 K/[facility] LAB HEMETOLOGY METHOD 06/03/2024 11:27 AM [facility] RBC 4.80 3.80 - 4.80 M/[facility] LAB HEMETOLOGY METHOD 06/03/2024 11:27 AM [facility] Hemoglobin 12.8 11.5 - 16.0 g/dL LAB HEMETOLOGY METHOD 06/03/2024 11:27 AM [facility] Hematocrit 39.8 35.0 - 47.0 % LAB HEMETOLOGY METHOD 06/03/2024 11:27 AM [facility] MCV 82.2 79.0 - 98.0 FL LAB HEMETOLOGY METHOD 06/03/2024 11:27 AM [facility] MCH 26.4(L) 27.0 - 32.0 pcg LAB HEMETOLOGY METHOD 06/03/2024 11:27 AM [facility] MCHC 32.2 32.0 - 37.0 g/dL LAB HEMETOLOGY METHOD 06/03/2024 11:27 AM [facility] RDW 14.2 11.0 - 15.0 % LAB HEMETOLOGY METHOD 06/03/2024 11:27 AM [facility] Platelets 199 130 - 400 K/[facility] LAB HEMETOLOGY METHOD 06/03/2024 11:27 AM [facility] MPV 10.8 7.0 - 11.0 FL LAB HEMETOLOGY METHOD 06/03/2024 11:27 AM [facility] NRBC 0.0 <1.0 % LAB HEMETOLOGY METHOD 06/03/2024 11:27 AM [facility] NRBC Absolute 0.00 <0.10 K/[facility] LAB HEMETOLOGY METHOD 06/03/2024 11:27 AM [facility] Neutrophils Relative 64.3 % LAB HEMETOLOGY METHOD 06/03/2024 11:27 AM [facility] Lymphocytes Relative 19.3 % LAB HEMETOLOGY METHOD 06/03/2024 11:27 AM [facility] Monocytes Relative 13.5 % LAB HEMETOLOGY METHOD 06/03/2024 11:27 AM [facility] Eosinophils Relative 2.0 % LAB HEMETOLOGY METHOD 06/03/2024 11:27 AM [facility] Basophils Relative 0.5 % LAB HEMETOLOGY METHOD 06/03/2024 11:27 AM [facility] Immature Granulocytes Relative 0.4 % LAB HEMETOLOGY METHOD 06/03/2024 11:27 AM [facility] Neutrophils Absolute 3.63 1.50 - 7.00 K/mcL LAB HEMETOLOGY METHOD 06/03/2024 11:27 AM [facility] Lymphocytes Absolute 1.09 1.00 - 5.00 K/mcL LAB HEMETOLOGY METHOD 06/03/2024 11:27 AM [facility] Monocytes Absolute 0.76 0.20 - 1.00 K/mcL LAB HEMETOLOGY METHOD 06/03/2024 11:27 AM [facility] Eosinophils Absolute 0.11 0.00 - 0.50 K/mcL LAB HEMETOLOGY METHOD 06/03/2024 11:27 AM [facility] Basophils Absolute 0.03 0.00 - 0.20 K/mcL LAB HEMETOLOGY METHOD 06/03/2024 11:27 AM [facility] Immature Granulocytes Absolute 0.02 0.00 - 0.03 K/mcL LAB HEMETOLOGY METHOD 06/03/2024 11:27 AM [facility] Blood Venous blood specimen / Unknown Venipuncture / Unknown 06/03/2024 6:18 AM EST 06/03/2024 10:27 AM EST Braydon Sykes MD LAB BLOOD ORDERABLES Final Res ult Performing Organization Address [facility]/ZIP Co de Phone Number [facility] [address] [place] [address], [place] [phone] * Magnesium (06/03/2024 6:18 AM EST) Pathologist [facility] Magnesium 2.3 1.9 - 2.6 mg/dL LAB CHEMISTRY METHOD 06/03/2024 11:57 AM EST [facility] Blood Venous blood specimen / Unknown Venipuncture / Unknown 06/03/2024 6:18 AM EST 06/03/2024 10:27 AM EST Braydon Sykes MD LAB BLOOD ORDERABLES Final Res ult Performing Organization Address [facility]/ZIP Co de Phone Number [facility] [address] [place] [address], [place] [phone] * (ABNORMAL) Comprehensive metabolic panel (06/03/2024 6:18 AM EST) [facility] Sodium 136 133 - 145 mmol/L LAB CHEMISTRY METHOD 06/03/2024 11:57 AM [facility] Potassium 4.1 3.5 - 5.5 mmol/L LAB CHEMISTRY METHOD 06/03/2024 11:57 AM [facility] Chloride 104 96 - 110 mmol/L LAB CHEMISTRY METHOD 06/03/2024 11:57 AM [facility] CO2 24 21 - 32 mmol/L LAB CHEMISTRY METHOD 06/03/2024 11:57 AM [facility] Anion Gap 8 3 - 11 LAB CHEMISTRY METHOD 06/03/2024 11:57 AM [facility] Glucose 83 70 - 100 mg/dL LAB CHEMISTRY METHOD 06/03/2024 11:57 AM [facility] BUN 14 5 - 25 mg/dL LAB CHEMISTRY METHOD 06/03/2024 11:57 AM [facility] Creatinine 0.58 0.50 - 1.10 mg/dL LAB CHEMISTRY METHOD 06/03/2024 11:57 AM [facility] eGFR 108 >=60 mL/min/1. 73m2 LAB CHEMISTRY METHOD 06/03/2024 11:57 AM [facility] Comment:Calculation based on the??Chronic Kidney Disease Epidemiology Collaboration (CKD-EPI) equation refit??without adjustment for race. BUN/Creatinine Ratio 24.1 LAB CHEMISTRY METHOD 06/03/2024 11:57 AM [facility] Calcium 9.1 8.5 - 10.5 mg/dL LAB CHEMISTRY METHOD 06/03/2024 11:57 AM [facility] AST (SGOT) 36 10 - 42 unit/L LAB CHEMISTRY METHOD 06/03/2024 11:57 AM [facility] ALT (SGPT) 43 10 - 60 unit/L LAB CHEMISTRY METHOD 06/03/2024 11:57 AM [facility] Alkaline Phosphatase 148(H) 42 - 121 unit/L LAB CHEMISTRY METHOD 06/03/2024 11:57 AM [facility] Total Protein 6.2 6.0 - 8.0 g/dL LAB CHEMISTRY METHOD 06/03/2024 11:57 AM [facility] Albumin 3.5 3.2 - 5.0 g/dL LAB CHEMISTRY METHOD 06/03/2024 11:57 AM [facility] Total Bilirubin 0.2 0.0 - 1.4 mg/dL LAB CHEMISTRY METHOD 06/03/2024 11:57 AM [facility] Blood Venous blood specimen / Unknown Venipuncture / Unknown 06/03/2024 6:18 AM EST 06/03/2024 10:27 AM EST us Braydon Sykes MD LAB BLOOD ORDERABLES Final Res ult [facility] [address] [place] [address], documented in this encounter Visit Diagnoses Diagnosis Encounter for other general examination documented in this encounter Care Teams Codifier Relationship Specialty Start Date End Date Braydon Sykes MD [address] [place] [phone] PCP - General Internal Medicine 06/03/24 documented as of this encounter
--- NOTE | 2024-08-23 07:40 | CA_ITS ---
Transthoracic Echocardiogram Patient (Last, First, Middle): Berenice Shepard M Gender: Female Date of : 1970 Age: 54 Procedure Date: 08/23/2024 Procedure Type: Transthoracic Echocardiogram Location: OP Height: 165.1 cm Weight: 95.26 kg BSA: 2.02 m2 Heart Rate: bpm BP: 130 / 78 mmHg Getter Operator: TO/RC Referring MD: Berenice Trujillo CALCINE FURNACE LOADER-C Symptoms: R94.31 - Abnormal electrocardiogram [ECG] [EKG] Study Quality: Fair ECG Rhythm: Sinus Conclusions: - The left ventricular systolic function is normal. The calculated ejection fraction is 63% by biplane method. - No obvious valvular pathology seen on this study. Findings Procedure Information The study quality is limited by the patients inability to tolerate the test. Left Ventricle Normal left ventricular cavity size. There is normal left ventricular wall thickness. The left ventricular systolic function is normal. The calculated ejection fraction is 63% by biplane method. There is no evidence of regional wall motion abnormalities. Diastolic function is normal for age. Right Ventricle Normal right ventricular cavity size and systolic function. Atria Both atria are normal in size. Interatrial shunt cannot be excluded. Aortic Valve There is a normal trileaflet aortic valve. There is no aortic valve stenosis. There is no aortic valve regurgitation. Mitral Valve The mitral valve appears normal. There is no mitral valve regurgitation. There is no mitral valve stenosis. Pulmonic Valve The pulmonic valve is likely normal. Tricuspid Valve There is mild tricuspid valve regurgitation. There is no evidence of pulmonary hypertension. Great Vessels The asc aorta is normal in size. Venous The inferior vena cava is normal in size and collapses greater than 50% with inspiration. Pericardium/Pleural There is no evidence of pericardial effusion. Prior Study Comparison No significant change compared to prior study dated: 07/18/2022. Recommendations, Care & Conclusions No obvious valvular pathology seen on this study. Measurements 2D Linear Measurements IVSd: 0.81 0.6-0.9/0.6-1.0 cm LVIDd: 4.46 3.9-5.3/4.2-5.9 cm LVIDd Index: 2.21 2.4-3.2/2.2-3.1 cm/m2 LVIDs: 3.62 2.0-3.6 cm LVPWd: 0.79 0.7-1.1 cm LA Diam: 3.00 2.7-3.8/3.0-4.0 cm LAIDs Index: 1.49 1.5-2.3 cm/m2 LV Mass: 138.49 67-162/88-224 g LV Mass Index: 68.56 43-95/49-115 g/m2 LVOT Diam: 2.10 3.0+(-)1.3 cm 2D Systolic Function EF 4C: 61.10 >55% EF 2C: 64.00 >55% EF BiP: 63.00 >55% Mitral Valve MV Pk E: 0.75 MV PK A: 1.07 MV Decel Time: 205.00 E/A: 0.70 E'Lateral: 9.25 E'Medial: 8.49 E/E' Med: 8.80 E/E' Lat: 8.10 PHT: 60.00 MVA PHT: 3.67 Decel [place]: 3.66 Aortic Valve AoV Pk Sorin: 1.84 AoV Mn Sorin: 1.18 AoV VTI: 0.36 AoV Pk Grad: 14.00 Aov Mn Grad: 6.00 BRIANDA Cont.VTI: 2.42 LVOT LVOT Pk Sorin: 1.09 LVOT Mn Sorin: 0.81 LVOT VTI: 0.25 LVOT Pk Grad: 5.00 LVOT Mn Grad: 3.00 LVOT Diam: 2.10 LVOT Area: 3.46 Diastolic Function MV Pk E: 0.75 MV Pk A: 1.07 E/A: 0.70 E'Medial: 8.49 E/E' Med: 8.80 E' Laterial: 9.25 E/E' Lat: 8.10 Right Ventricle TAPSE (mm): 27.30 TVS' Sorin: 14.70 Tricuspid Valve TR Pk Sorin: 2.28 TR Pk Grad: 21.00 RA Press: 3.00 RVSP: 24.00 Great Vessels Aorta Sinus of Valsalva: 3.60 2.0-3.5 cm Ao Asc: 3.50 2.1-3.4 cm Updated in Other Vendor System with Status of Final Jordon Esparza MD electronically signed on 08/24/2024 9:10:16 AM with status of Final
== END ==
LOC: HO.CARD 07:36
PROVIDERS: PCP Internal Medicine; Visit Provider Nurse Practitioner Family
DX: R94.31 Abnormal electrocardiogram [ECG] [EKG] (principal); R00.2 Palpitations
CPT/HCPCS: 93242; 93306

== ENCOUNTER → 2024-08-23 07:40 | Outpatient (BNV) | payer OTHER, SELFPAY | PROVIDERS: PCP Internal Medicine; Visit Provider Internal Medicine | DX: I36.1 Nonrheumatic tricuspid (valve) insufficiency (principal); R94.31 Abnormal electrocardiogram [ECG] [EKG] | CPT/HCPCS: 93306 ==

== ENCOUNTER 2024-09-01 08:36 | Outpatient (AMB) | payer OTHER, SELFPAY ==
--- OUTSIDE RECORDS SUMMARY | 2024-09-01 08:52 | XMS_ITS | Clinical Summary ---
Author Organization [address] [facility] Address [address] [place] [address] Phone Care Team Providers Care Principal Architect Name Role Phone Braydon Sykes MD Primary Care Provider [phone] Encounters Date Type Department Care Team Description 06/09/2024 Lab Requisition [facility] - Main Lab [address] [facility] [address] Braydon Sykes MD Encounter for other general [...] pcg LAB HEMETOLOGY METHOD 06/09/2024 8:24 AM EST [facility] MCHC 30.9(L) 32.0 - 37.0 g/dL LAB HEMETOLOGY METHOD 06/09/2024 8:24 AM EST [facility] RDW 14.8 11.0 - 15.0 % LAB HEMETOLOGY METHOD 06/09/2024 8:24 AM EST [facility] Platelets 245 130 - 400 K/mcL LAB HEMETOLOGY METHOD 06/09/2024 8:24 AM EST [facility] MPV 10.5 7.0 - 11.0 FL LAB HEMETOLOGY METHOD 06/09/2024 8:24 AM EST [facility] NRBC 0.5 <1.0 % LAB HEMETOLOGY METHOD 06/09/2024 8:24 AM EST [facility] NRBC Absolute 0.03 <0.10 K/mcL LAB HEMETOLOGY METHOD 06/09/2024 8:24 AM [facility] Blood Venous blood specimen / Unknown Venipuncture / Unknown 06/09/2024 6:00 AM EST 06/09/2024 7:30 AM EST us Braydon Sykes MD LAB BLOOD ORDERABLES Final Res ult [facility] [address] [place] [address], * Basic metabolic panel (06/09/2024 6:00 AM EST) Sodium 136 133 - 145 mmol/L LAB CHEMISTRY METHOD 06/09/2024 8:20 AM EST [facility] Potassium 4.4 3.5 - 5.5 mmol/L LAB CHEMISTRY METHOD 06/09/2024 8:20 AM EST [facility] Chloride 105 96 - 110 [...] MD LAB BLOOD ORDERABLES Final Res ult [facility] [address] [place] [address], from Last 3 Months Insurance MEDICAID - [place] Care Teams Principal Architect Relationship Specialty Start Date End Date Braydon Sykes MD [address] [place] [id number] PCP - General Internal Medicine 06/03/24
--- OUTSIDE RECORDS SUMMARY | 2024-09-01 08:52 | XMS_ITS | Encounter Summary ---
Author Organization [facility] Address [address] [place] [address] Care Team Providers Care It Manager Name Role Phone Braydon Sykes MD Primary Care Provider [phone] Encounter Details Date Type Department Care Team (Late st Contact Info) Description 06/03/2024 Lab Requisition [facility] - Main Lab [address] [facility] [address] Braydon Sykes MD [address] [place] [id number] Encounter for other general examination Social History [...] AM EST) WBC 5.6 4.8 - 10.8 K/[facility] LAB HEMETOLOGY METHOD 06/03/2024 11:27 AM [facility] RBC 4.80 3.80 - 4.80 M/[facility] LAB HEMETOLOGY METHOD 06/03/2024 11:27 AM [facility] Hemoglobin 12.8 11.5 - 16.0 g/dL LAB HEMETOLOGY METHOD 06/03/2024 11:27 AM [facility] Hematocrit 39.8 35.0 - 47.0 % LAB HEMETOLOGY METHOD 06/03/2024 11:27 AM [facility] MCV 82.2 79.0 - 98.0 FL LAB HEMETOLOGY METHOD 06/03/2024 11:27 AM [facility] MCH 26.4(L) 27.0 - 32.0 pcg LAB HEMETOLOGY METHOD 06/03/2024 11:27 AM [facility] MCHC 32.2 32.0 - 37.0 g/dL LAB HEMETOLOGY METHOD 06/03/2024 11:27 AM [facility] RDW 14.2 11.0 - 15.0 % LAB HEMETOLOGY METHOD 06/03/2024 11:27 AM [facility] Platelets 199 130 - 400 K/[facility] LAB HEMETOLOGY METHOD 06/03/2024 11:27 AM [facility] MPV 10.8 7.0 - 11.0 FL LAB HEMETOLOGY METHOD 06/03/2024 11:27 AM [facility] NRBC 0.0 <1.0 % LAB HEMETOLOGY METHOD 06/03/2024 11:27 AM [facility] NRBC Absolute 0.00 <0.10 K/[facility] LAB HEMETOLOGY METHOD 06/03/2024 11:27 AM [facility] Neutrophils Relative 64.3 % LAB HEMETOLOGY METHOD 06/03/2024 11:27 AM [facility] Lymphocytes Relative 19.3 % LAB HEMETOLOGY METHOD 06/03/2024 11:27 AM [facility] Monocytes Relative 13.5 % LAB HEMETOLOGY METHOD 06/03/2024 11:27 AM [facility] Eosinophils Relative 2.0 % LAB HEMETOLOGY METHOD 06/03/2024 11:27 AM [facility] Basophils Relative 0.5 % LAB HEMETOLOGY METHOD 06/03/2024 11:27 AM [facility] Immature Granulocytes Relative 0.4 % LAB HEMETOLOGY METHOD 06/03/2024 11:27 AM [facility] Neutrophils Absolute 3.63 1.50 - 7.00 K/mcL LAB HEMETOLOGY METHOD 06/03/2024 11:27 AM [facility] Lymphocytes Absolute 1.09 1.00 - 5.00 K/mcL LAB HEMETOLOGY METHOD 06/03/2024 11:27 AM [facility] Monocytes Absolute 0.76 0.20 - 1.00 K/mcL LAB HEMETOLOGY METHOD 06/03/2024 11:27 AM [facility] Eosinophils Absolute 0.11 0.00 - 0.50 K/mcL LAB HEMETOLOGY METHOD 06/03/2024 11:27 AM [facility] Basophils Absolute 0.03 0.00 - 0.20 K/mcL LAB HEMETOLOGY METHOD 06/03/2024 11:27 AM [facility] Immature Granulocytes Absolute 0.02 0.00 - 0.03 K/mcL LAB HEMETOLOGY METHOD 06/03/2024 11:27 AM [facility] Blood Venous blood specimen / Unknown Venipuncture / Unknown 06/03/2024 6:18 AM EST 06/03/2024 10:27 AM EST Braydon Sykes MD LAB BLOOD ORDERABLES Final Res ult Performing Organization Address [facility]/ZIP Co de Phone Number [facility] [address] [place] [address], [place] [phone] * Magnesium (06/03/2024 6:18 AM EST) Pathologist [facility] Magnesium 2.3 1.9 - 2.6 mg/dL LAB CHEMISTRY METHOD 06/03/2024 11:57 AM EST [facility] Blood Venous blood specimen / Unknown Venipuncture / Unknown 06/03/2024 6:18 AM EST 06/03/2024 10:27 AM EST Braydon Sykes MD LAB BLOOD ORDERABLES Final Res ult Performing Organization Address [facility]/ZIP Co de Phone Number [facility] [address] [place] [address], [place] [phone] * (ABNORMAL) Comprehensive metabolic panel (06/03/2024 6:18 AM EST) [facility] Sodium 136 133 - 145 mmol/L LAB CHEMISTRY METHOD 06/03/2024 11:57 AM [facility] Potassium 4.1 3.5 - 5.5 mmol/L LAB CHEMISTRY METHOD 06/03/2024 11:57 AM [facility] Chloride 104 96 - 110 mmol/L LAB CHEMISTRY METHOD 06/03/2024 11:57 AM [facility] CO2 24 21 - 32 mmol/L LAB CHEMISTRY METHOD 06/03/2024 11:57 AM [facility] Anion Gap 8 3 - 11 LAB CHEMISTRY METHOD 06/03/2024 11:57 AM [facility] Glucose 83 70 - 100 mg/dL LAB CHEMISTRY METHOD 06/03/2024 11:57 AM [facility] BUN 14 5 - 25 mg/dL LAB CHEMISTRY METHOD 06/03/2024 11:57 AM [facility] Creatinine 0.58 0.50 - 1.10 mg/dL LAB CHEMISTRY METHOD 06/03/2024 11:57 AM [facility] eGFR 108 >=60 mL/min/1. 73m2 LAB CHEMISTRY METHOD 06/03/2024 11:57 AM [facility] Comment:Calculation based on the??Chronic Kidney Disease Epidemiology Collaboration (CKD-EPI) equation refit??without adjustment for race. BUN/Creatinine Ratio 24.1 LAB CHEMISTRY METHOD 06/03/2024 11:57 AM [facility] Calcium 9.1 8.5 - 10.5 mg/dL LAB CHEMISTRY METHOD 06/03/2024 11:57 AM [facility] AST (SGOT) 36 10 - 42 unit/L LAB CHEMISTRY METHOD 06/03/2024 11:57 AM [facility] ALT (SGPT) 43 10 - 60 unit/L LAB CHEMISTRY METHOD 06/03/2024 11:57 AM [facility] Alkaline Phosphatase 148(H) 42 - 121 unit/L LAB CHEMISTRY METHOD 06/03/2024 11:57 AM [facility] Total Protein 6.2 6.0 - 8.0 g/dL LAB CHEMISTRY METHOD 06/03/2024 11:57 AM [facility] Albumin 3.5 3.2 - 5.0 g/dL LAB CHEMISTRY METHOD 06/03/2024 11:57 AM [facility] Total Bilirubin 0.2 0.0 - 1.4 mg/dL LAB CHEMISTRY METHOD 06/03/2024 11:57 AM [facility] Blood Venous blood specimen / Unknown Venipuncture / Unknown 06/03/2024 6:18 AM EST 06/03/2024 10:27 AM EST us Braydon Sykes MD LAB BLOOD ORDERABLES Final Res ult [facility] [address] [place] [address], documented in this encounter Visit Diagnoses Diagnosis Encounter for other general examination documented in this encounter Care Teams It Manager Relationship Specialty Start Date End Date Braydon Sykes MD [address] [place] [id number] PCP - General Internal Medicine 06/03/24 documented as of this encounter
--- OUTSIDE RECORDS SUMMARY | 2024-09-01 08:52 | XMS_ITS | Encounter Summary ---
Author Organization [facility] Address [address] [place] [address] Care Team Providers Care Accounting System Expert Name Role Phone Braydon Sykes MD Primary Care Provider [phone] Encounter Details Date Type Department Care Team (Late st Contact Info) Description 06/09/2024 Lab Requisition [facility] - Main Lab [address] [place] [address] Braydon Sykes MD [address] [place] [id number] Encounter for other general examination Social History [...] AM EST) WBC 5.6 4.8 - 10.8 K/[facility] LAB HEMETOLOGY METHOD 06/09/2024 8:24 AM EST [facility] RBC 4.40 3.80 - 4.80 M/[facility] LAB HEMETOLOGY METHOD 06/09/2024 8:24 [...] ult [facility] [address] [place] [address], * Basic metabolic panel (06/09/2024 6:00 AM [...] MD LAB BLOOD ORDERABLES Final [facility] [address] [place] [address], [place] [phone] documented in this encounter Visit Diagnoses Diagnosis Encounter for other general examination documented in this encounter Care Teams Accounting System Expert Relationship Specialty Start Date End Date Braydon Sykes MD [address] [place] [phone] PCP - General Internal Medicine 06/03/24 documented as of this encounter
[2024-09-01 09:06] VITALS: BP 124/72; PULSE 95; BMI 37.3
--- NOTE | 2024-09-01 09:06 | MHC.OFFVIS ---
Vital Signs 09/01/24 09:06 Height 5 ft 5 in Weight 224 lb 6.889 oz BMI 37.3 BP 124/72 Blood Pressure Location Lt brachial Position Sitting Pulse 95 Pulse Source Pulse Oximeter Intake Visit Reasons: 4-6 wk follow up/echo/holter Refractory Products Supervisor Required: No Allergies niacin [Niaspan Extended-Release] Allergy (Intermediate, Verified 09/01/24 09:09) skin blisters tramadol Allergy (Intermediate, Verified 09/01/24 09:09) seizures barley [BARLEY] Allergy (Unknown, Verified 09/01/24 09:09) UNKNOWN fluticasone [Advair Diskus] Allergy (Unknown, Verified 09/01/24 09:09) Shortness of Breath ibuprofen Allergy (Unknown, Verified 09/01/24 09:09) Swelling naratriptan Allergy (Unknown, Verified 09/01/24 09:09) unknown Penicillins [PENICILLINS] Allergy (Unknown, Verified 09/01/24 09:09) Unknown sumatriptan Allergy (Unknown, Verified 09/01/24 09:09) unknown trazodone [TRAZODONE] Allergy (Unknown, Verified 09/01/24 09:09) UNKNOWN omalizumab [From Xolair] Adverse Reaction (Severe, Verified 09/01/24 09:09) Anaphylaxis rubber, unspecified Adverse Reaction (Severe, Verified 09/01/24 09:09) Unknown equate cough drops sugar free Allergy (Mild, Uncoded 09/01/24 09:09) Unknown silicone Adverse Reaction (Severe, Uncoded 09/01/24 09:09) Unknown vaseline Adverse Reaction (Severe, Uncoded 09/01/24 09:09) hives Medication List - Last Reconciled 09/01/24 by Berenice Trujillo NP-C acetaminophen 1,000 mg PO Q6H PRN albuterol sulfate 90 mcg/actuation (Ventolin HFA) 2 puffs inhalation Q4H PRN [Blood pressure monitor As directed] bupropion HCl SR 150 mg PO BID@0800,1200 celecoxib 200 mg PO DAILY clonidine HCl 0.1 mg PO DAILY PRN cyclobenzaprine 5 mg PO ONCE PRN dexlansoprazole (Dexilant) 60 mg PO DAILY duloxetine mg PO DAILY duloxetine mg PO .once at PM dupilumab (Dupixent) 300 mg (2 mL) subcut Q2W 28 days [fall detection monitor As directed] fluticasone propion-salmeterol 230-21 mcg/actuation (Advair HFA) 2 puffs inhalation Q12H fluticasone propionate 50 mcg/actuation (Flonase Allergy Relief) 2 sprays intranasal BID 90 days ipratropium-albuterol 0.5 mg-3 mg(2.5 mg base)/3 mL 3 mL inhalation Q4-6H PRN 30 days levothyroxine 150 mcg PO QAM 90 days lidocaine 4% 1 patch topical DAILY PRN lisinopril 5 mg PO DAILY loratadine 10 mg PO DAILY 30 days lorazepam (Ativan) 1 mg PO DAILY PRN montelukast 10 mg PO DAILY oxcarbazepine 150 mg PO BID topiramate 25 mg PO BID HPI HPI 4-6 wk follow up/echo/holter: Details: Berenice is a 54 yo female with PMH of obesity, PTSD, smoking, GERD, asthma, PFO who was recently admitted to [facility] with left sided weakness and determined to have complicated migraine and seizure disorder. Following discharge she went to rehab. On last visit an echocardiogram and Holter monitor were ordered and she now presents for follow-up. Today she reports that she is doing better overall. She states that her left-sided weakness has resolved and she feels back to her baseline. She is still using a cane for balance.. She feels short of breath with walking and at times her chest will feel tight. She says her asthma and allergies have been acting up frequently. She uses her rescue inhaler and updraft treatment as needed. No actual chest discomfort. She will get random heart palpitations, like her heart is going fast. She has no recent lightheadedness, no presyncope, syncope. Has been mostly sedentary recently. Lives with boyfriend and his 26 yr old son. [facility] Medical History Hospital discharge follow-up Other specified hypothyroidism Colon cancer screening Left sided abdominal pain Influenza A H1N1 infection Stool incontinence Shoulder pain Anemia Bronchitis due to COVID-19 virus COVID Acute pneumonia Work related injury Acute diarrhea Paresthesias in left hand Dysuria PFO (patent foramen ovale) Shortness of breath Community acquired pneumonia Chronic idiopathic constipation Pre-op examination Encounter for routine gynecological examination LFT elevation Encounter for general adult medical examination with abnormal findings Respiratory tract congestion with cough Hospital discharge follow-up COVID-19 Tracheobronchitis COVID-19 Iron deficiency anemia Shoulder pain, right Nausea and vomiting PFO (patent foramen ovale) History of transesophageal echocardiography (LAN) Colitis Abnormal angiogram of head COVID-19 Asthma Thyroid disease GERD (gastroesophageal reflux disease) Anemia Aneurysm Surgical History History of surgery of uterus H/O endoscopy History of H/O brain surgery History of colonoscopy Family History Father Diabetes Arthritis Diverticulitis Leukemia Mental health disorder Lung cancer Mother Anemia Arthritis Colon polyps Myocardial infarction Brother Crohn's disease Testicular cancer Brother Cancer Paternal Grandfather Leukemia Other Substance use disorder Social History Household Members: Spouse and Children Housing: House Are you a primary customer care agent to a significant other at home: No Do you presently have visiting nurse or other home services: No Alcohol intake: former Patient Tobacco Use Status: Former Tobacco user Tobacco use type: Cigarette Cigarettes Per Day: 10 e-Cigarette/Vaping Use: Never Used Second Hand Smoke Exposure: No Advance Directives Date on File: 04/09/21 service: No 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al status: employed 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: [employer]/ right hand dominant Cognitive needs: No Hearing needs: No Vision needs: Yes Review of Systems Const All systems reviewed & are unremarkable except as noted in HPI and below ENT Denies dizziness Card Denies chest pain, Denies chest pain at rest, Denies chest pain with activity, Denies rapid heart rate, Denies pedal edema, Denies edema, Denies leg edema, Denies lightheadedness, Denies palpitations, Denies dyspnea, Denies dyspnea on exertion and Denies orthopnea Resp Denies cough, Denies dyspnea and Denies dyspnea on exertion GI Denies hematochezia and Denies change in stool character Musc Reports abnormal gait (uses cane), Denies limited range of motion, Denies muscle cramps, Denies muscle weakness, Denies numbness, Denies radiating pain into limb, Denies stiffness and Denies tingling Neuro Reports abnormal gait (uses cane), Denies dizziness, Denies numbness and Denies tingling Endo Denies palpitations Physical Exam Vital Signs: Last Vital Signs Pulse 95 09/01/24 09:06 BP 124/72 09/01/24 09:06 BMI result Body Mass Index 37.3 Const General: cooperative, comfortable and no acute distress Orientation/consciousness: patient oriented x3 Neck Neck: Yes normal visual inspection Resp Effort & Inspection: normal respiratory effort Auscultation: clear to auscultation bilaterally, no rales, no rhonchi and no wheezes Cardio Rate: regular rate Rhythm: regular rhythm Heart sounds: S1 normal heart sound present, S2 normal heart sound present, no murmurs and no rubs Neuro General: patient oriented x3 Extrem General: Yes normal to inspection and No no pedal edema Psych Appearance: grossly normal Mental Status: mental status grossly normal Assessment & Plan Assessment & Plan (1) Complicated migraine: Code(s): G43.109 - Migraine with aura, not intractable, without status migrainosus Category: Medical Plan: Recent [facility] admit for left weakness which has since improved. CT, CTA and MRI brain did not show evidence of acute infarct. The MRI did show mild small vessel ischemic changes. Her symptoms were thought to be related to complex migraine, seizure disorder. For further evaluation she underwent a Echocardiogram done 08/23/2024 showed EF 63%, no valve abnormalities and no regional wall motion abnormalities. Holter monitor was done however results available at visit. Cardiology follow up 6 months, sooner if needed (2) Abnormal EKG: Code(s): R94.31 - Abnormal electrocardiogram [ECG] [EKG] Category: Medical Plan: EKG's show SR, cant exclude prior anterior infarct. No known CAD. Cardiac risks of smoking, HTN. Echocardiogram shows normal EF and wall motion. She is not having exertional chest discomfort. She has symptoms that can be related to her asthma. Will hold off on stress test currently. (3) Labile hypertension: Code(s): R09.89 - Other specified symptoms and signs involving the circulatory and respiratory systems Category: Medical Plan: BP goal < 130/80. Well controlled at this time. No med changes made. (4) PFO (patent foramen ovale): Code(s): Q21.12 - Patent foramen ovale Category: Medical Plan: LAN done 2022 for evaluation showing small PFO. Recent echo was not mentioning PFO will study was not done. Recommend she take aspirin 81 mg daily. (5) Palpitation: Code(s): R00.2 - Palpitations Category: Medical Plan: as above. Prior report, Holter results pending. Plan Time spent on chart review, documentation, interview, assessment. Patient was informed and verbally consented to the use of an ambient scribe for clinic note documentation during this visit. During our discussion, I emphasized the importance of analyzing the pending heart monitor results to detect any cardiac arrhythmias. I reassured the patient about the positive outcome of her echocardiogram indicating strong heart function. We discussed the management of her PFO conservatively and recommended continuing low-dose aspirin. I reviewed with her the need for further neurological input potentially regarding her migraine diagnosis and the past TIAs. We discussed the benefits of continued asthma management and maintaining prescribed blood pressure medications. I underscored the importance of maintaining physical activity to aid in recovery while avoiding potential falls. Follow-up was discussed with the next visit most likely in six months, unless monitor results suggest otherwise. Risks and benefits of current medications were reiterated, ensuring understanding and compliance. Patient Instructions: - Continue taking Montelukast, inhalers, and nebulizer as directed for asthma. - Use a low-dose aspirin daily to help prevent clot formation. - Keep taking blood pressure medication unless directed otherwise. - Continue light physical activities and exercise caution to avoid falls. - Expect a follow-up call regarding heart monitor results. - Schedule neurology appointment to re-evaluate migraine/TIA concerns. - Follow up in six months or earlier as needed depending on new test results. Coding Level of Care Code Est Pt Level 3 (61546) Complex EM visit Add On G2211 Diagnoses Complicated migraine G43.109 Abnormal EKG R94.31 Labile hypertension R09.89 PFO (patent foramen ovale) Q21.12 Palpitation R00.2 Time Spent (min) 24
== END 2024-09-01 09:40 | disposition home or self-care (01) ==
LOC: HO.HCS 08:36
PROVIDERS: PCP Internal Medicine; Visit Provider Nurse Practitioner Family
DX: G43.109 Migraine with aura, not intractable, without status migrainosus (principal); R94.31 Abnormal electrocardiogram [ECG] [EKG]; R09.89 Other specified symptoms and signs involving the circulatory and respiratory systems; Q21.12 Patent foramen ovale; R00.2 Palpitations
CPT/HCPCS: 99213; G2211

== ENCOUNTER → 2024-09-01 08:36 | Outpatient (BNVA) | payer OTHER, SELFPAY | PROVIDERS: PCP Internal Medicine; Visit Provider Nurse Practitioner Family | DX: R00.2 Palpitations (principal); R94.31 Abnormal electrocardiogram [ECG] [EKG]; G43.109 Migraine with aura, not intractable, without status migrainosus; R09.89 Other specified symptoms and signs involving the circulatory and respiratory systems; Q21.12 Patent foramen ovale; E66.9 Obesity, unspecified; Z68.37 Body mass index [BMI] 37.0-37.9, adult; Z87.891 Personal history of nicotine dependence | CPT/HCPCS: 99212 ==

== ENCOUNTER 2024-09-12 11:04 | Outpatient (REF) | payer OTHER, SELFPAY ==
--- NOTE | ~2024-09-12 | MM_ITS ---
EXAMINATION: MM DIAGNOSTIC DIGITAL BREAST TOMOSYNTHESIS, BILATERAL CLINICAL INFORMATION: Two-year follow-up for right breast asymmetries lower central breast middle and posterior depth. COMPARISON: Mammography: Comparison is made with relevant prior exams. TECHNIQUE: Digital breast mammography with tomosynthesis is performed in both the craniocaudal and mediolateral oblique views along with computer-aided detection (CAD). FINDINGS: There are scattered areas of fibroglandular density (ACR BI-RADS breast composition Category b). The previously seen asymmetries in the lower central right breast one is not significant changed on priors dating back for more than 2 years and therefore benign. The other is no longer seen. There are no significant masses, abnormal calcifications, or other abnormalities. Results are provided to the patient at time of visit by the technologist. MM/MM tomosynthesis diagnostic BI IMPRESSION: No mammographic evidence of malignancy. ASSESSMENT: BI-RADS BI-RADS 2 - Benign Findings RECOMMENDATION: 1 year F/U This patient's information was entered into a reminder system with a target due date for their next mammogram. Electronically signed by: Alanna Glover DO 09/12/2024 01:18 PM EDT
--- OUTSIDE RECORDS SUMMARY | 2024-09-12 11:52 | XMS_ITS | Encounter Summary ---
Author Organization [facility] Address [address] [place] [address] Care Team Providers Care Alpaca Farmer Name Role Phone Braydon Sykes MD Primary Care Provider Encounter Details Date Type Department Care Team (Late st Contact Info) Description 06/09/2024 Lab Requisition [facility] - Main Lab [address] [place] [address] Braydon Sykes MD [address] [place] [phone] Encounter for other general examination Social History [...] AM EST) WBC 5.6 4.8 - 10.8 K/[facility] LAB HEMETOLOGY METHOD 06/09/2024 8:24 AM EST [facility] LAB RBC 4.40 3.80 - 4.80 M/[facility] LAB HEMETOLOGY METHOD 06/09/2024 8:24 AM EST [facility] LAB Hemoglobin 12.1 11.5 - 16.0 g/dL LAB HEMETOLOGY METHOD 06/09/2024 8:24 AM [facility] LAB Hematocrit 39.2 35.0 - 47.0 % LAB HEMETOLOGY METHOD 06/09/2024 8:24 AM [facility] LAB MCV 89.9 79.0 - 98.0 FL LAB HEMETOLOGY METHOD 06/09/2024 8:24 AM [facility] LAB MCH 27.8 27.0 - 32.0 pcg LAB HEMETOLOGY METHOD 06/09/2024 8:24 AM [facility] LAB MCHC 30.9(L) 32.0 - 37.0 g/dL LAB HEMETOLOGY METHOD 06/09/2024 8:24 AM [facility] LAB RDW 14.8 11.0 - 15.0 % LAB HEMETOLOGY METHOD 06/09/2024 8:24 AM [facility] LAB Platelets 245 130 - 400 K/mcL LAB HEMETOLOGY METHOD 06/09/2024 8:24 AM [facility] LAB MPV 10.5 7.0 - 11.0 FL LAB HEMETOLOGY METHOD 06/09/2024 8:24 AM [facility] LAB NRBC 0.5 <1.0 % LAB HEMETOLOGY METHOD 06/09/2024 8:24 AM [facility] LAB NRBC Absolute 0.03 <0.10 K/mcL LAB HEMETOLOGY METHOD 06/09/2024 8:24 AM [facility] LAB Blood Venous blood specimen / Unknown Venipuncture / Unknown 06/09/2024 6:00 AM EST 06/09/2024 7:30 AM EST us Braydon Sykes MD LAB BLOOD ORDERABLES Final Res ult [facility] LAB [address] [place] [address], * Basic metabolic panel (06/09/2024 6:00 AM EST) Sodium 136 133 - 145 mmol/L LAB CHEMISTRY METHOD 06/09/2024 8:20 AM [facility] LAB Potassium 4.4 3.5 - 5.5 mmol/L LAB CHEMISTRY METHOD 06/09/2024 8:20 AM [facility] LAB Chloride 105 96 - 110 mmol/L LAB CHEMISTRY METHOD 06/09/2024 8:20 AM [facility] LAB CO2 22 21 - 32 mmol/L LAB CHEMISTRY METHOD 06/09/2024 8:20 AM [facility] LAB Anion Gap 9 3 - 11 LAB CHEMISTRY METHOD 06/09/2024 8:20 AM [facility] LAB Glucose 74 70 - 100 mg/dL LAB CHEMISTRY METHOD 06/09/2024 8:20 AM [facility] LAB BUN 14 5 - 25 mg/dL LAB CHEMISTRY METHOD 06/09/2024 8:20 AM [facility] LAB Creatinine 0.65 0.50 - 1.10 mg/dL LAB CHEMISTRY METHOD 06/09/2024 8:20 AM [facility] LAB eGFR 105 >=60 mL/min/1. 73m2 LAB CHEMISTRY METHOD 06/09/2024 8:20 AM [facility] LAB Comment:Calculation based on the??Chronic Kidney Disease Epidemiology Collaboration (CKD-EPI) equation refit??without adjustment for race. BUN/Creatinine Ratio 21.5 LAB CHEMISTRY METHOD 06/09/2024 8:20 AM [facility] LAB Calcium 9.0 8.5 - 10.5 mg/dL LAB CHEMISTRY METHOD 06/09/2024 8:20 AM [facility] LAB Blood Venous blood specimen / Unknown Venipuncture / Unknown 06/09/2024 6:00 AM EST 06/09/2024 7:30 AM EST us Braydon Sykes MD LAB BLOOD ORDERABLES Final Res ult [facility] LAB [address] [place] [address], [place] [phone] documented in this encounter Visit Diagnoses Diagnosis Encounter for other general examination documented in this encounter Care Teams Alpaca Farmer Relationship Specialty Start Date End Date Braydon Sykes MD [address] [place] [phone] PCP - General Internal Medicine 06/03/24 documented as of this encounter
--- OUTSIDE RECORDS SUMMARY | 2024-09-12 11:52 | XMS_ITS | Clinical Summary ---
Author Organization [address] [facility] Address [address] [place] [address] Phone Care Team Providers Care Lead Mechanic Name Role Phone Braydon Sykes MD Primary Care Provider [phone] Social History Tobacco Use Types Packs/Day Years [...] on patient's age to complete this topic Insurance MEDICAID - [place] Care Teams Lead Mechanic Relationship Specialty Start Date End Date Braydon Sykes MD [address] [place] [phone] PCP - General Internal Medicine 06/03/24
--- OUTSIDE RECORDS SUMMARY | 2024-09-12 11:52 | XMS_ITS | Encounter Summary ---
Author Organization [facility] Address [address] [place] [address] Care Team Providers Care Catalyst Operator Name Role Phone Braydon Sykes MD Primary Care Provider [phone] Encounter Details Date Type Department Care Team (Late st Contact Info) Description 06/03/2024 Lab Requisition [facility] - Main Lab [address] [facility] [place] [address] Braydon Sykes MD [address] [place] [phone] Encounter for other general examination Social History [...] Health LAB HEMETOLOGY METHOD 06/03/2024 11:27 AM [facility] LAB RBC 4.80 3.80 - 4.80 M/[facility] LAB HEMETOLOGY METHOD 06/03/2024 11:27 AM [facility] LAB Hemoglobin 12.8 11.5 - 16.0 g/dL LAB HEMETOLOGY METHOD 06/03/2024 11:27 AM [facility] LAB Hematocrit 39.8 35.0 - 47.0 % LAB HEMETOLOGY METHOD 06/03/2024 11:27 AM [facility] LAB MCV 82.2 79.0 - 98.0 FL LAB HEMETOLOGY METHOD 06/03/2024 11:27 AM [facility] LAB MCH 26.4(L) 27.0 - 32.0 pcg LAB HEMETOLOGY METHOD 06/03/2024 11:27 AM [facility] LAB MCHC 32.2 32.0 - 37.0 g/dL LAB HEMETOLOGY METHOD 06/03/2024 11:27 AM [facility] LAB RDW 14.2 11.0 - 15.0 % LAB HEMETOLOGY METHOD 06/03/2024 11:27 AM [facility] LAB Platelets 199 130 - 400 K/[facility] LAB HEMETOLOGY METHOD 06/03/2024 11:27 AM [facility] LAB MPV 10.8 7.0 - 11.0 FL LAB HEMETOLOGY METHOD 06/03/2024 11:27 AM [facility] LAB NRBC 0.0 <1.0 % LAB HEMETOLOGY METHOD 06/03/2024 11:27 AM [facility] LAB NRBC Absolute 0.00 <0.10 K/[facility] LAB HEMETOLOGY METHOD 06/03/2024 11:27 AM [facility] LAB Neutrophils Relative 64.3 % LAB HEMETOLOGY METHOD 06/03/2024 11:27 AM [facility] LAB Lymphocytes Relative 19.3 % LAB HEMETOLOGY METHOD 06/03/2024 11:27 AM [facility] LAB Monocytes Relative 13.5 % LAB HEMETOLOGY METHOD 06/03/2024 11:27 AM [facility] LAB Eosinophils Relative 2.0 % LAB HEMETOLOGY METHOD 06/03/2024 11:27 AM [facility] LAB Basophils Relative 0.5 % LAB HEMETOLOGY METHOD 06/03/2024 11:27 AM [facility] LAB Immature Granulocytes Relative 0.4 % LAB HEMETOLOGY METHOD 06/03/2024 11:27 AM [facility] LAB Neutrophils Absolute 3.63 1.50 - 7.00 K/mcL LAB HEMETOLOGY METHOD 06/03/2024 11:27 AM [facility] LAB Lymphocytes Absolute 1.09 1.00 - 5.00 K/mcL LAB HEMETOLOGY METHOD 06/03/2024 11:27 AM [facility] LAB Monocytes Absolute 0.76 0.20 - 1.00 K/mcL LAB HEMETOLOGY METHOD 06/03/2024 11:27 AM [facility] LAB Eosinophils Absolute 0.11 0.00 - 0.50 K/mcL LAB HEMETOLOGY METHOD 06/03/2024 11:27 AM [facility] LAB Basophils Absolute 0.03 0.00 - 0.20 K/mcL LAB HEMETOLOGY METHOD 06/03/2024 11:27 AM [facility] LAB Immature Granulocytes Absolute 0.02 0.00 - 0.03 K/mcL LAB HEMETOLOGY METHOD 06/03/2024 11:27 AM [facility] LAB Blood Venous blood specimen / Unknown Venipuncture / Unknown 06/03/2024 6:18 AM EST 06/03/2024 10:27 AM EST Braydon Sykes MD LAB BLOOD ORDERABLES Final Res ult Performing Organization Address [facility]/ZIP Co de Phone Number [facility] LAB [address] [place] [address], [place] [phone] * Magnesium (06/03/2024 6:18 AM EST) Pathologist [facility] Magnesium 2.3 1.9 - 2.6 mg/dL LAB CHEMISTRY METHOD 06/03/2024 11:57 AM EST [facility] LAB Blood Venous blood specimen / Unknown Venipuncture / Unknown 06/03/2024 6:18 AM EST 06/03/2024 10:27 AM EST Braydon Sykes MD LAB BLOOD ORDERABLES Final Res ult Performing Organization Address [facility]/ZIP Co de Phone Number [facility] LAB [address] [place] [address], [place] [phone] * (ABNORMAL) Comprehensive metabolic panel (06/03/2024 6:18 AM EST) [facility] Sodium 136 133 - 145 mmol/L LAB CHEMISTRY METHOD 06/03/2024 11:57 AM [facility] LAB Potassium 4.1 3.5 - 5.5 mmol/L LAB CHEMISTRY METHOD 06/03/2024 11:57 AM [facility] LAB Chloride 104 96 - 110 mmol/L LAB CHEMISTRY METHOD 06/03/2024 11:57 AM [facility] LAB CO2 24 21 - 32 mmol/L LAB CHEMISTRY METHOD 06/03/2024 11:57 AM [facility] LAB Anion Gap 8 3 - 11 LAB CHEMISTRY METHOD 06/03/2024 11:57 AM [facility] LAB Glucose 83 70 - 100 mg/dL LAB CHEMISTRY METHOD 06/03/2024 11:57 AM [facility] LAB BUN 14 5 - 25 mg/dL LAB CHEMISTRY METHOD 06/03/2024 11:57 AM [facility] LAB Creatinine 0.58 0.50 - 1.10 mg/dL LAB CHEMISTRY METHOD 06/03/2024 11:57 AM [facility] LAB eGFR 108 >=60 mL/min/1. 73m2 LAB CHEMISTRY METHOD 06/03/2024 11:57 AM [facility] LAB Comment:Calculation based on the??Chronic Kidney Disease Epidemiology Collaboration (CKD-EPI) equation refit??without adjustment for race. BUN/Creatinine Ratio 24.1 LAB CHEMISTRY METHOD 06/03/2024 11:57 AM [facility] LAB Calcium 9.1 8.5 - 10.5 mg/dL LAB CHEMISTRY METHOD 06/03/2024 11:57 AM [facility] LAB AST (SGOT) 36 10 - 42 unit/L LAB CHEMISTRY METHOD 06/03/2024 11:57 AM [facility] LAB ALT (SGPT) 43 10 - 60 unit/L LAB CHEMISTRY METHOD 06/03/2024 11:57 AM [facility] LAB Alkaline Phosphatase 148(H) 42 - 121 unit/L LAB CHEMISTRY METHOD 06/03/2024 11:57 AM [facility] LAB Total Protein 6.2 6.0 - 8.0 g/dL LAB CHEMISTRY METHOD 06/03/2024 11:57 AM [facility] LAB Albumin 3.5 3.2 - 5.0 g/dL LAB CHEMISTRY METHOD 06/03/2024 11:57 AM [facility] LAB Total Bilirubin 0.2 0.0 - 1.4 mg/dL LAB CHEMISTRY METHOD 06/03/2024 11:57 AM [facility] LAB Blood Venous blood specimen / Unknown Venipuncture / Unknown 06/03/2024 6:18 AM EST 06/03/2024 10:27 AM EST us Braydon Sykes MD LAB BLOOD ORDERABLES Final Res ult [facility] [address] [place] [address], documented in this encounter Visit Diagnoses Diagnosis Encounter for other general examination documented in this encounter Care Teams Catalyst Operator Relationship Specialty Start Date End Date Braydon Sykes MD [address] [place] [phone] PCP - General Internal Medicine 06/03/24 documented as of this encounter
== END 2024-09-12 11:05 | disposition home or self-care (01) ==
LOC: HO.MAMMO 11:04
PROVIDERS: PCP Internal Medicine; Visit Provider Internal Medicine
DX: R92.2 Inconclusive mammogram (principal)
CPT/HCPCS: 77062; 77066

== ENCOUNTER → 2024-09-12 11:45 | Outpatient (BNV) | payer OTHER, SELFPAY | PROVIDERS: PCP Internal Medicine; Visit Provider Internal Medicine | DX: R92.323 Mammographic fibroglandular density, bilateral breasts (principal) | CPT/HCPCS: 77062; 77066 ==

== ENCOUNTER 2024-10-06 08:34 | Outpatient (AMB) | payer OTHER, SELFPAY ==
--- OUTSIDE RECORDS SUMMARY | 2024-10-06 08:47 | XMS_ITS | Encounter Summary ---
Author Organization [facility] Address [address] [place] [address] Care Team Providers Care Hazardous Material Specialist Name Role Phone Braydon Sykes MD Primary Care Provider [phone] Encounter Details Date Type Department Care Team (Late st Contact Info) Description 06/03/[address] [facility] - Main Lab [address] [facility] [place] [address] Braydon Sykes MD [address] [place] [phone] Encounter for other general examination Social History [...] AM EST) WBC 5.6 4.8 - 10.8 K/[facility] LAB HEMETOLOGY METHOD 06/03/2024 11:27 AM [facility] LAB RBC 4.80 3.80 - 4.80 M/[facility] LAB HEMETOLOGY METHOD 06/03/2024 11:27 AM [...] HOSPITAL LAB Platelets 199 130 - 400 K/[facility] LAB HEMETOLOGY METHOD 06/03/2024 11:27 AM [facility] LAB MPV 10.8 7.0 - 11.0 FL LAB HEMETOLOGY METHOD 06/03/2024 11:27 AM [facility] LAB NRBC 0.0 <1.0 % LAB HEMETOLOGY METHOD 06/03/2024 11:27 AM [facility] LAB NRBC Absolute 0.00 <0.10 K/[facility] LAB HEMETOLOGY METHOD 06/03/2024 11:27 AM [...] ORDERABLES Final Res ult Performing Organization Address [facility]/ZIP Co de Phone Number [facility] LAB [address] [place] [address], [place] [phone] * Magnesium (06/03/2024 6:18 AM EST) Pathologist [facility] Magnesium 2.3 1.9 - 2.6 mg/dL LAB CHEMISTRY METHOD 06/03/2024 11:57 AM EST [facility] LAB Blood Venous blood specimen / Unknown Venipuncture / Unknown 06/03/2024 6:18 AM EST 06/03/2024 10:27 AM EST Braydon Sykes MD LAB BLOOD ORDERABLES Final Res ult Performing Organization Address [facility]/ZIP Co de Phone Number [facility] [address] [place] [address], [place] [phone] * (ABNORMAL) Comprehensive metabolic panel (06/03/2024 6:18 AM EST) [facility] Sodium 136 133 - 145 mmol/L [...] Res ult [facility] [address] [place] [address], documented in this encounter Visit Diagnoses Diagnosis Encounter for other general examination documented in this encounter Care Teams Hazardous Material Specialist Relationship Specialty Start Date End Date Braydon Sykes MD [address] [place] [phone] PCP - General Internal Medicine 06/03/24 documented as of this encounter
--- NOTE | 2024-10-06 09:14 | A.OFFPC_ITS ---
Intake Visit Reasons: follow up Allergies niacin [Niaspan Extended-Release] Allergy (Intermediate, Verified 09/01/24 09:09) skin blisters tramadol Allergy (Intermediate, Verified 09/01/24 09:09) seizures barley [BARLEY] Allergy (Unknown, Verified 09/01/24 09:09) UNKNOWN fluticasone [Advair Diskus] Allergy (Unknown, Verified 09/01/24 09:09) Shortness of Breath ibuprofen Allergy (Unknown, Verified 09/01/24 09:09) Swelling naratriptan Allergy (Unknown, Verified 09/01/24 09:09) unknown Penicillins [PENICILLINS] Allergy (Unknown, Verified 09/01/24 09:09) Unknown sumatriptan Allergy (Unknown, Verified 09/01/24 09:09) unknown trazodone [TRAZODONE] Allergy (Unknown, Verified 09/01/24 09:09) UNKNOWN omalizumab [From Xolair] Adverse Reaction (Severe, Verified 09/01/24 09:09) Anaphylaxis rubber, unspecified Adverse Reaction (Severe, Verified 09/01/24 09:09) Unknown equate cough drops sugar free Allergy (Mild, Uncoded 09/01/24 09:09) Unknown silicone Adverse Reaction (Severe, Uncoded 09/01/24 09:09) Unknown vaseline Adverse Reaction (Severe, Uncoded 09/01/24 09:09) hives Medication List - Last Reconciled 10/06/24 by Thee Tay MD acetaminophen 1,000 mg PO Q6H PRN albuterol sulfate 90 mcg/actuation (Ventolin HFA) 2 puffs inhalation Q4H PRN [Blood pressure monitor As directed] bupropion HCl SR 150 mg PO BID@0800,1200 celecoxib 200 mg PO DAILY clonidine HCl 0.1 mg PO DAILY PRN cyclobenzaprine 5 mg PO ONCE PRN dexlansoprazole (Dexilant) 60 mg PO DAILY duloxetine mg PO DAILY duloxetine mg PO .once at PM dupilumab (Dupixent) 300 mg (2 mL) subcut Q2W 28 days [fall detection monitor As directed] fluticasone propion-salmeterol 230-21 mcg/actuation (Advair HFA) 2 puffs inhalation Q12H fluticasone propionate 50 mcg/actuation (Flonase Allergy Relief) 2 sprays intranasal BID 90 days ipratropium-albuterol 0.5 mg-3 mg(2.5 mg base)/3 mL 3 mL inhalation Q4-6H PRN 30 days levothyroxine 150 mcg PO QAM 90 days lidocaine 4% 1 patch topical DAILY PRN lisinopril 5 mg PO DAILY loratadine 10 mg PO DAILY 30 days lorazepam (Ativan) 1 mg PO DAILY PRN montelukast 10 mg PO DAILY oxcarbazepine 150 mg PO BID prednisone 10 mg PO DIRECTED topiramate 25 mg PO BID Tobacco use date assessed: 05/13/24 Dental Screening Dental Screen Date: 05/13/24 HPI follow up HPI Details History - The patient is a 54-year-old female pr esenting with asthma exacerbation due to seasonal allergies. - She reports symptoms of nasal congesti on, throat constriction, sinus issues, and rash outbreaks coinciding with high pollen levels. - The patient has been experiencing diff iculty breathing, associated with the current pollen season. - Symptoms are exacerbated by environmen eve exposure, evidenced by rash and breathing difficulty when outdoors. 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 - Past treatments include allergy shots, which were subsequently halted as they were deemed ineffective. - The patient has a history of receiving Dupixent injections biweekly for eosinophilic asthma. - Currently experiencing some relief fro m prednisone, albeit still coughing slightly. - The patient self-reports managing hive s with Benadryl and expressed anxiety over increased asthmatic symptoms this season. Medical History: - Eosinophilic asthma (allergic asthma) - History of allergic reactions during h igh pollen seasons Medications: - Prednisone for asthma exacerbation - Montelukast for asthma management - Loratadine for allergies - Flonase for allergies - Benadryl for hives management - Dupixent injections biweekly for eosin ophilic asthma Problem List - Eosinophilic asthma - Seasonal allergic rhinitis - Hives due to allergens Patient Instructions - Continue prednisone as prescribed. - Keep windows closed to minimize pollen exposure. - Wear a mask outdoors to avoid inhaling pollen. - Use Benadryl for hive management if ne cessary. - Monitor symptoms and adjust prednisone dosage as recommended if symptoms worsen. Review of Systems - General: No fever no chills - Neurological: No headaches no dizziness - Ear nose throat: No sore throat no hearing difficulty no ear pain - Cardiovascular: No syncope, no chest pain, no palpitations - Gastrointestinal: No nausea vomiting or diarrhea PFSH Medical History Hospital discharge follow-up Other specified hypothyroidism Colon cancer screening Left sided abdominal pain Influenza A H1N1 infection Stool incontinence Shoulder pain Anemia Bronchitis due to COVID-19 virus COVID Acute pneumonia Work related injury Acute diarrhea Paresthesias in left hand Dysuria PFO (patent foramen ovale) Shortness of breath Community acquired pneumonia Chronic idiopathic constipation Pre-op examination Encounter for routine gynecological examination LFT elevation Encounter for general adult medical examination with abnormal findings Respiratory tract congestion with cough Hospital discharge follow-up COVID-19 Tracheobronchitis COVID-19 Iron deficiency anemia Shoulder pain, right Nausea and vomiting PFO (patent foramen ovale) History of transesophageal echocardiography (LAN) Colitis Abnormal angiogram of head COVID-19 Asthma Thyroid disease GERD (gastroesophageal reflux disease) Anemia Aneurysm Surgical History History of surgery of uterus H/O endoscopy History of H/O brain surgery History of colonoscopy Family History Father Diabetes Arthritis Diverticulitis Leukemia Mental health disorder Lung cancer Mother Anemia Arthritis Colon polyps Myocardial infarction Brother Crohn's disease Testicular cancer Brother Cancer Paternal Grandfather Leukemia Other Substance use disorder Social History Household Members: Spouse and Children Housing: House Are you a primary child care center assistant director to a significant other at home: No Do you presently have visiting nurse or other home services: No Alcohol intake: former Patient Tobacco Use Status: Former Tobacco user Tobacco use type: Cigarette Cigarettes Per Day: 10 e-Cigarette/Vaping Use: Never Used Second Hand Smoke Exposure: No Advance Directives Date on File: 04/09/21 service: No 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al status: employed 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: [employer]/ right hand dominant Cognitive needs: No Hearing needs: No Vision needs: Yes Questionnaire Thrive Questionnaire Date Thrive assessed: 05/13/24 MARKO-7 AMB Questionnaire MARKO-7 Date MARKO - 7 assessed: 06/16/24 Source: Developed by Drs. Masood Arredondo, Lesly Pruitt, Thor Del Cid and colleagues, with an educational phil from [employer] Physical exam (Primary Care) Tobacco/Smoking Status: Tobacco use Status Tobacco use date assessed 05/13/24 10/06/24 09:16 Patient Tobacco Use Status Former Tobacco user 10/06/24 09:16 Tobacco use type Cigarette 10/06/24 09:16 e-Cigarette/Vaping Use Never Used 10/06/24 09:16 Thrive Assessment: Date of Thrive Assessment Date Thrive assessed 05/13/24 10/06/24 09:16 Telehealth Telehealth Telehealth Platform: Slyce Location of provider rendering services: practice address Location of patient: address on file Patient Identification confirmed using: Name, : Yes Telehealth method: video Patient verbally consented to treatment: Yes Patient verbally consented to billing insurance company: Yes Patient informed of any privacy concerns related to visit: Yes Minutes spent on Phone/Video with Pt.: 13 Coding Level of Care Code Tele Est Pt Level 3 (75751) Diagnoses Severe persistent allergic asthma J45.50 Environmental allergies Z91.09 Assessment & Plan Assessment & Plan (1) Severe persistent allergic asthma: Code(s): J45.50 - Severe persistent asthma, uncomplicated Category: Medical (2) Environmental allergies: Code(s): Z91.09 - Other allergy status, other than to drugs and biological substances Category: Medical Plan History - The patient is a 54-year-old female presenting with asthma exacerbation due to seasonal allergies. - She reports symptoms of nasal congestion, throat constriction, sinus issues, and rash outbreaks coinciding with high pollen levels. - The patient has been experiencing difficulty breathing, associated with the current pollen season. - Symptoms are exacerbated by environmental exposure, evidenced by rash and breathing difficulty when outdoors. 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 - Past treatments include allergy shots, which were subsequently halted as they were deemed ineffective. - The patient has a history of receiving Dupixent injections biweekly for eosinophilic asthma. - Currently experiencing some relief from prednisone, albeit still coughing slightly. - The patient self-reports managing hives with Benadryl and expressed anxiety over increased asthmatic symptoms this season. Medical History: - Eosinophilic asthma (allergic asthma) - History of allergic reactions during high pollen seasons Medications: - Prednisone for asthma exacerbation - Montelukast for asthma management - Loratadine for allergies - Flonase for allergies - Benadryl for hives management - Dupixent injections biweekly for eosinophilic asthma Problem List - Eosinophilic asthma - Seasonal allergic rhinitis - Hives due to allergens Patient Instructions - Continue prednisone as prescribed. - Keep windows closed to minimize pollen exposure. - Wear a mask outdoors to avoid inhaling pollen. - Use Benadryl for hive management if necessary. - Monitor symptoms and adjust prednisone dosage as recommended if symptoms worsen.
== END 2024-10-06 09:21 | disposition home or self-care (01) ==
LOC: HO.HMCC 08:34
PROVIDERS: PCP Internal Medicine; Visit Provider Internal Medicine
DX: J45.50 Severe persistent asthma, uncomplicated (principal); Z91.09 Other allergy status, other than to drugs and biological substances

== ENCOUNTER → 2024-10-06 08:34 | Outpatient (BNVA) | payer OTHER, SELFPAY | PROVIDERS: PCP Internal Medicine; Visit Provider Internal Medicine ==

== ENCOUNTER 2024-11-22 09:49 | Outpatient (AMB) | payer OTHER, SELFPAY ==
[2024-11-22 09:51] VITALS: BP 112/72; PULSE 101; BMI 39.6
--- NOTE | 2024-11-22 09:51 | A.OFFVIS_ITS ---
Vital Signs 11/22/24 09:51 Height 5 ft 5 in Weight 238 lb 1.588 oz BMI 39.6 BP 112/72 Blood Pressure Location Lt brachial Position Sitting Pulse 101 H Intake Visit Reasons: bloating CIC Esophagitis GERD Intake Note: Berenice returns in follow up of bloating, CIC, and GERD. CC: Patient reports that she had a diverticulitis flare up a few weeks ago that lasted about a week. She states that she wakes up in the middle of the night wheezing and coughing, she is not sure if GERD is related to this symptoms. Metallurgical Lab Technician Required: No Accompanied by: Self / Same As Patient Allergies niacin (Niaspan Extended-Release) Allergy (Intermediate, Verified 11/22/24 09:55) skin blisters tramadol Allergy (Intermediate, Verified 11/22/24 09:55) seizures barley (BARLEY) Allergy (Unknown, Verified 11/22/24 09:55) UNKNOWN fluticasone (Advair Diskus) Allergy (Unknown, Verified 11/22/24 09:55) Shortness of Breath ibuprofen Allergy (Unknown, Verified 11/22/24 09:55) Swelling naratriptan Allergy (Unknown, Verified 11/22/24 09:55) unknown Penicillins (PENICILLINS) Allergy (Unknown, Verified 11/22/24 09:55) Unknown sumatriptan Allergy (Unknown, Verified 11/22/24 09:55) unknown trazodone (TRAZODONE) Allergy (Unknown, Verified 11/22/24 09:55) UNKNOWN omalizumab (From Xolair) Adverse Reaction (Severe, Verified 11/22/24 09:55) Anaphylaxis rubber, unspecified Adverse Reaction (Severe, Verified 11/22/24 09:55) Unknown equate cough drops sugar free Allergy (Mild, Uncoded 09/01/24 09:09) Unknown silicone Adverse Reaction (Severe, Uncoded 09/01/24 09:09) Unknown vaseline Adverse Reaction (Severe, Uncoded 09/01/24 09:09) hives HPI HPI bloating CIC Esophagitis GERD: Details: Assessment & Plan (1) Esophagitis: Code(s): K20.90 - Esophagitis, unspecified without bleeding Category: Medical (2) GERD (gastroesophageal reflux disease): Code(s): K21.9 - Gastro-esophageal reflux disease without esophagitis Category: Medical Qualifiers: Esophagitis presence: without esophagitis Qualified Code(s): K21.9 - Gastro-esophageal reflux disease without esophagitis (3) Abdominal bloating: Code(s): R14.0 - Abdominal distension (gaseous) Category: Medical (4) Chronic idiopathic constipation: Code(s): K59.04 - Chronic idiopathic constipation Category: Medical (5) Colon cancer screening: Comment: Given her severe anxiety consider Cologuard in the future going forwardaeb Code(s): Z12.11 - Encounter for screening for malignant neoplasm of colon Category: Medical Plan She feels she was sent home too soon after the procedure, (she feels that our [facility] transportation service was rushing them) and she was having N/V, CP, sore throat and she ended up in the ER - she was sent from there with carafate. She feels she can't breath if she wears a bra and she gets pain in the LUQ. She was given the FODMAP diet and now I can't tolerate dairy, it will clean out my system. I have never heard reported case of suddenly developing food intolerances after procedure, hopefully this will normalize over time and it may just be that her colon is a bit upset. ROV 6 weeks, sent Carafate to [facility] pharmacy. Given the fact that she now feels feel for procedures we might want to up for Cologuard in the future. Medications: New sucralfate (Carafate) 10 mL PO BID 1,000 mL 3RF K20.90 - Esophagitis, unspecified without bleeding Refilled simethicone after meals 180 mg PO QID 120 caps 6RF 30 days dexlansoprazole (Dexilant) 60 mg PO DAILY 90 caps 3RF 90 days K21.9 - Gastro- esophageal reflux disease without esophagitis TODAY'S VISIT She has really been struggling with her asthma and allergies so bad that she could not leave the house for most of the summer and had to reschedule her appt. She is having more trouble overnight with coughing that causes nausea. She asks if we can increase her Dexilant, but she is at the max dose. I will add famotidine qhs as this also has an antihistamine effect to try to determine if it is GERD or asthma. Could be a little of both. She had a new health problem, she had a severe hemicranial migraine followed by some abnormalities in her gait and then presented to the hospital for possible stroke. She was then stent to a stroke hospital because the workup was unclear as to whether it was an ischemic event or a migrainous seizure. She did actually have a physical seizure at that time. She will be following with Neurology. Her bowels have calmed down and she is having normal BMs now. She has not needed the sucralfate, and she continues on Dexilant and. Return office visit in 6 months or sooner depending on her response to the famotidine [facility] Medical History Colon cancer screening Hospital discharge follow-up Other specified hypothyroidism Left sided abdominal pain Influenza A H1N1 infection Stool incontinence Shoulder pain Anemia Bronchitis due to COVID-19 virus COVID Acute pneumonia Work related injury Acute diarrhea Paresthesias in left hand Dysuria PFO (patent foramen ovale) Shortness of breath Community acquired pneumonia Chronic idiopathic constipation Pre-op examination Encounter for routine gynecological examination LFT elevation Encounter for general adult medical examination with abnormal findings Respiratory tract congestion with cough Hospital discharge follow-up COVID-19 Tracheobronchitis COVID-19 Iron deficiency anemia Shoulder pain, right Nausea and vomiting PFO (patent foramen ovale) History of transesophageal echocardiography (LAN) Colitis Abnormal angiogram of head COVID-19 Asthma Thyroid disease GERD (gastroesophageal reflux disease) Anemia Aneurysm Surgical History History of surgery of uterus H/O endoscopy History of H/O brain surgery History of colonoscopy Family History Father Diabetes Arthritis Diverticulitis Leukemia Mental health disorder Lung cancer Mother Anemia Arthritis Colon polyps Myocardial infarction Brother Crohn's disease Testicular cancer Brother Cancer Paternal Grandfather Leukemia Other Substance use disorder Social History Household Members: Spouse and Children Housing: House Are you a primary acute care nurse to a significant other at home: No Do you presently have visiting nurse or other home services: No Alcohol intake: former Patient Tobacco Use Status: Former Tobacco user Tobacco use type: Cigarette Cigarettes Per Day: 10 e-Cigarette/Vaping Use: Never Used Second Hand Smoke Exposure: No Advance Directives Date on File: 04/09/21 service: No 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al status: employed 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: [employer]/ right hand dominant Cognitive needs: No Hearing needs: No Vision needs: Yes Review of Systems Const Denies fatigue, Denies fever(s), Reports headache(s), Denies night sweats, Denies poor appetite, Reports weight gain and Denies weight loss Eyes Reports itchy eyes ENT Reports Normal hearing present, Denies dental pain, Denies dysphagia, Reports headache(s), Denies hearing loss, Denies mouth pain, Denies odynophagia, Denies throat swelling, Denies tongue swelling and Reports other (Dentition adequate) Card Reports no additional complaints Resp Reports cough and Reports wheezing GI Details: Denies abdominal pain, Denies melena, Reports bloating, Denies hematochezia, Denies constipation, Denies GI cramping, Denies dysphagia, Denies excessive flatus, Denies early satiety, Reports heartburn, Denies diarrhea, Denies nausea, Denies odynophagia, Denies vomiting and Denies hematemesis Musc Reports abnormal gait Skin/Breast Denies pruritus, Denies lesions, Denies rash and Denies jaundice Neuro Reports Normal hearing present, Denies Abnormal speech present, Reports abnormal gait, Reports headache(s), Reports lack of coordination and Reports seizure-like activity Psych Reports anxiety and Reports panic attacks Endo Denies fatigue Aller/Immun Reports urticaria, Reports itchy eyes, Denies throat swelling, Denies tongue swelling and Reports wheezing Physical Exam Vital Signs: Last Vital Signs Pulse 101 H 11/22/24 09:51 BP 112/72 11/22/24 09:51 BMI result Body Mass Index 39.6 Const General: cooperative, no acute distress, well developed and well groomed Nutritional Appearance: well nourished and obese Orientation/consciousness: oriented to person, oriented to place and oriented to time Limitations: No language barrier and other limitations (Severe anxiety and agoraphobia) HEENT Head: Yes normocephalic and Yes atraumatic Eyes General: appearance normal, both eyes and all related structures Pupils: Equal, round and reactive pupils present Neck Neck: Yes normal visual inspection and Yes no lymphadenopathy Thyroid: Thyroid normal Resp Effort & Inspection: normal respiratory effort and able to speak in complete sentences Auscultation: clear to auscultation bilaterally Cardio Rate: regular rate Rhythm: regular rhythm Heart sounds: Normal, physiologic split S2 sound present Peripheral pulses: radial pulses present and posterior tibial pulses present GI Inspection: No distended, Yes Abdominal panniculus present and Yes obesity Palpation (GI): Soft to palpation, nontender, no guarding, not rigid and No hepatosplenomegaly present Percussion: Yes normal to percussion Auscultation: normal bowel sounds Rectal Exam - Female: deferred Skin General skin exam: no rashes or lesions noted, turgor normal, skin not dry, no jaundice, No spider nevi and no striae Rashes: no rashes Nails: normal Neuro General: oriented to person, oriented to place and oriented to time Cranial nerves: Yes Equal, round and reactive pupils present and Yes Normal hearing present Speech: No Abnormal speech present Extrem General: Yes normal to inspection, No clubbing, No cyanosis and No edema Psych Appearance: grossly normal and well kempt Mental Status: mental status grossly normal Speech and movement: Normal speech and movement present Affect: normal affect Attitude: cooperative Thought process: Normal thought process present and not confabulating Thought content: Normal thought content present Insight: Fair insight present (Psych) and Limited insight present (Psych) Judgement: Fair judgement present (Psych) and Limited judgement present (Psych) Assessment & Plan Assessment & Plan (1) GERD (gastroesophageal reflux disease): Code(s): K21.9 - Gastro-esophageal reflux disease without esophagitis Category: Medical Qualifiers: Esophagitis presence: without esophagitis Qualified Code(s): K21.9 - Gastro-esophageal reflux disease without esophagitis (2) Chronic idiopathic constipation: Code(s): K59.04 - Chronic idiopathic constipation Category: Medical (3) Esophagitis: Code(s): K20.90 - Esophagitis, unspecified without bleeding Category: Medical (4) Morbid obesity: Code(s): E66.01 - Morbid (severe) obesity due to excess calories Category: Medical Plan She has really been struggling with her asthma and allergies so bad that she could not leave the house for most of the summer and had to reschedule her appt. She is having more trouble overnight with coughing that causes nausea. She asks if we can increase her Dexilant, but she is at the max dose. I will add famotidine qhs as this also has an antihistamine effect to try to determine if it is GERD or asthma. Could be a little of both. She had a new health problem, she had a severe hemicranial migraine followed by some abnormalities in her gait and then presented to the hospital for possible stroke. She was then stent to a stroke hospital because the workup was unclear as to whether it was an ischemic event or a migrainous seizure. She did actually have a physical seizure at that time. She will be following with Neurology. Her bowels have calmed down and she is having normal BMs now. She has not needed the sucralfate, and she continues on Dexilant and. She requests a referral to weight management because she has gained quite a bit of weight with her hospitalization knife provided this and the phone number. Return office visit in 6 months or sooner depending on her response to the famotidine Orders: Referrals Medical Weight Management Referral E66.01 - Morbid (severe) obesity due to excess calories, K20.90 - Esophagitis, unspecified without bleeding Medications: New famotidine (Pepcid) 40 mg PO BEDTIME 30 tabs 6RF K20.90 - Esophagitis, unspecified without bleeding simethicone after meals 180 mg PO QID 300 caps 3RF 30 days Refilled dexlansoprazole (Dexilant) 60 mg PO DAILY 90 caps 0RF K21.9 - Gastro-esophageal reflux disease without esophagitis Coding Level of Care Code Est Pt Level 4 (62415) Diagnoses Gastroesophageal reflux disease without esophagitis K21.9 Esophagitis presence: without esophagitis Chronic idiopathic constipation K59.04 Esophagitis K20.90 Morbid obesity E66.01 Time Spent (min) 35
--- OUTSIDE RECORDS SUMMARY | 2024-11-22 10:27 | XMS_ITS | Clinical Summary ---
Author Organization [facility] Address [address] [place] [id number] Phone Care Team Providers Care Talent Engineer Name Role Phone Thee Tay MD Primary Care Provider [phone] Social History Tobacco Use Types Packs/Day Years Used Date Smoking Tobacco: Never Assessed Comments Unknown Sex and Gender Information Value Date Recorded Sex Assigned at Not on file Legal Sex Female 9:33 PM EDT Gender Identity Not on file Sexual Orientation Not on file Last Filed Vital Signs Vital Sign Reading Time Taken Comments Blood Pressure 120/74 11/26/2011 5:02 AM EDT Pulse 72 11/26/2011 5:02 AM EDT Temperature 36.7 C (98.1 F) 11/26/2011 5:02 AM EDT Respiratory Rate - - Oxygen Saturation - - Inhaled Oxygen Concentration - - Weight 74.3 kg (163 lb 12.8 oz) 11/26/2011 5:02 AM EDT Height 166.4 cm (5' 5.5 ) 11/26/2011 5:02 AM EDT Body Mass Index 26.84 11/26/2011 5:02 AM EDT Plan of Treatment Not on file Medical Devices [place] [id number] [facility] [facility] [employer] [facility] [address] [facility] [place] [facility] BALDWINNutrinia [facility] MCO BALDWINYooli MCO Care Teams Talent Engineer Relationship Specialty Start Date End Date Thee Tay MD [address] [place] [id number] PCP - General Internal Medicine 01/13/17 Additional Source Comments The information contained in this document represents components of the legal health record. It is not the complete legal health record.[facility]
--- OUTSIDE RECORDS SUMMARY | 2024-11-22 10:27 | XMS_ITS | Encounter Summary ---
Author Organization [facility] Address [address] [place] [address] Care Team Providers Care Composition Floor Setter Name Role Phone Braydon Sykes MD Primary Care Provider [phone] Encounter Details Date Type Department Care Team (Late st Contact Info) Description 06/03/2024 Lab Requisition [facility] - Main Lab [address] [facility] [place] [address] Braydon Sykes MD [address] [place] [address] Encounter for other general examination Social History [...] AM EST) WBC 5.6 4.8 - 10.8 K/[facility] LAB HEMETOLOGY METHOD 06/03/2024 11:27 AM [facility] LAB RBC 4.80 3.80 - 4.80 M/[facility] LAB HEMETOLOGY METHOD 06/03/2024 11:27 AM [facility] LAB Hemoglobin 12.8 11.5 - 16.0 g/dL LAB HEMETOLOGY METHOD 06/03/2024 11:27 AM [facility] LAB Hematocrit 39.8 35.0 - 47.0 % LAB HEMETOLOGY METHOD 06/03/2024 11:27 AM [facility] LAB MCV 82.2 79.0 - 98.0 FL LAB HEMETOLOGY METHOD 06/03/2024 11:27 AM [facility] LAB MCH 26.4(L) 27.0 - 32.0 pcg LAB HEMETOLOGY METHOD 06/03/2024 11:27 AM [facility] LAB MCHC 32.2 32.0 - 37.0 g/dL LAB HEMETOLOGY METHOD 06/03/2024 11:27 AM [facility] LAB RDW 14.2 11.0 - 15.0 % LAB HEMETOLOGY METHOD 06/03/2024 11:27 AM [facility] LAB Platelets 199 130 - 400 K/[facility] LAB HEMETOLOGY METHOD 06/03/2024 11:27 AM [facility] LAB MPV 10.8 7.0 - 11.0 FL LAB HEMETOLOGY METHOD 06/03/2024 11:27 AM [facility] LAB NRBC 0.0 <1.0 % LAB HEMETOLOGY METHOD 06/03/2024 11:27 AM [facility] LAB NRBC Absolute 0.00 <0.10 K/[facility] LAB HEMETOLOGY METHOD 06/03/2024 11:27 AM [facility] LAB Neutrophils Relative 64.3 % LAB HEMETOLOGY METHOD 06/03/2024 11:27 AM [facility] LAB Lymphocytes Relative 19.3 % LAB HEMETOLOGY METHOD 06/03/2024 11:27 AM [facility] LAB Monocytes Relative 13.5 % LAB HEMETOLOGY METHOD 06/03/2024 11:27 AM [facility] LAB Eosinophils Relative 2.0 % LAB HEMETOLOGY METHOD 06/03/2024 11:27 AM [facility] LAB Basophils Relative 0.5 % LAB HEMETOLOGY METHOD 06/03/2024 11:27 AM [facility] LAB Immature Granulocytes Relative 0.4 % LAB HEMETOLOGY METHOD 06/03/2024 11:27 AM [facility] LAB Neutrophils Absolute 3.63 1.50 - 7.00 K/mcL LAB HEMETOLOGY METHOD 06/03/2024 11:27 AM [facility] LAB Lymphocytes Absolute 1.09 1.00 - 5.00 K/mcL LAB HEMETOLOGY METHOD 06/03/2024 11:27 AM [facility] LAB Monocytes Absolute 0.76 0.20 - 1.00 K/mcL LAB HEMETOLOGY METHOD 06/03/2024 11:27 AM [facility] LAB Eosinophils Absolute 0.11 0.00 - 0.50 K/mcL LAB HEMETOLOGY METHOD 06/03/2024 11:27 AM [facility] LAB Basophils Absolute 0.03 0.00 - 0.20 K/mcL LAB HEMETOLOGY METHOD 06/03/2024 11:27 AM [facility] LAB Immature Granulocytes Absolute 0.02 0.00 - 0.03 K/mcL LAB HEMETOLOGY METHOD 06/03/2024 11:27 AM [facility] LAB Blood Venous blood specimen / Unknown Venipuncture / Unknown 06/03/2024 6:18 AM EST 06/03/2024 10:27 AM EST Braydon Sykes MD LAB BLOOD ORDERABLES Final Res ult Performing Organization Address [facility]/ZIP Co de Phone Number [facility] [address] [place] [address], [place] [phone] * Magnesium (06/03/2024 6:18 AM EST) Pathologist [facility] Magnesium 2.3 1.9 - 2.6 mg/dL LAB CHEMISTRY METHOD 06/03/2024 11:57 AM EST [facility] Blood Venous blood specimen / Unknown Venipuncture / Unknown 06/03/2024 6:18 AM EST 06/03/2024 10:27 AM EST Braydon Sykes MD LAB BLOOD ORDERABLES Final Res ult Performing Organization Address [facility]/ZIP Co de Phone Number [facility] [address] [place] [address], [place] [phone] * (ABNORMAL) Comprehensive metabolic panel (06/03/2024 6:18 AM EST) [facility] Sodium 136 133 - 145 mmol/L LAB CHEMISTRY METHOD 06/03/2024 11:57 AM [facility] Potassium 4.1 3.5 - 5.5 mmol/L LAB CHEMISTRY METHOD 06/03/2024 11:57 AM [facility] Chloride 104 96 - 110 mmol/L LAB CHEMISTRY METHOD 06/03/2024 11:57 AM [facility] CO2 24 21 - 32 mmol/L LAB CHEMISTRY METHOD 06/03/2024 11:57 AM [facility] Anion Gap 8 3 - 11 LAB CHEMISTRY METHOD 06/03/2024 11:57 AM [facility] Glucose 83 70 - 100 mg/dL LAB CHEMISTRY METHOD 06/03/2024 11:57 AM [facility] BUN 14 5 - 25 mg/dL LAB CHEMISTRY METHOD 06/03/2024 11:57 AM [facility] Creatinine 0.58 0.50 - 1.10 mg/dL LAB CHEMISTRY METHOD 06/03/2024 11:57 AM [facility] LAB eGFR 108 >=60 mL/min/1. 73m2 LAB CHEMISTRY METHOD 06/03/2024 11:57 AM [facility] LAB Comment:Calculation based on the Chronic Kidney Disease Epidemiology Collaboration (CKD-EPI) equation refit without adjustment for race. BUN/Creatinine Ratio 24.1 LAB CHEMISTRY METHOD 06/03/2024 11:57 AM [facility] Calcium 9.1 8.5 - 10.5 mg/dL LAB CHEMISTRY METHOD 06/03/2024 11:57 AM [facility] AST (SGOT) 36 10 - 42 unit/L LAB CHEMISTRY METHOD 06/03/2024 11:57 AM [facility] ALT (SGPT) 43 10 - 60 unit/L LAB CHEMISTRY METHOD 06/03/2024 11:57 AM [facility] Alkaline Phosphatase 148(H) 42 - 121 unit/L LAB CHEMISTRY METHOD 06/03/2024 11:57 AM [facility] Total Protein 6.2 6.0 - 8.0 g/dL LAB CHEMISTRY METHOD 06/03/2024 11:57 AM [facility] Albumin 3.5 3.2 - 5.0 g/dL LAB CHEMISTRY METHOD 06/03/2024 11:57 AM [facility] Total Bilirubin 0.2 0.0 - 1.4 mg/dL LAB CHEMISTRY METHOD 06/03/2024 11:57 AM [facility] Blood Venous blood specimen / Unknown Venipuncture / Unknown 06/03/2024 6:18 AM EST 06/03/2024 10:27 AM EST us Braydon Sykes MD LAB BLOOD ORDERABLES Final Res ult [facility] [address] [place] [address], documented in this encounter Visit Diagnoses Diagnosis Encounter for other general examination documented in this encounter Care Teams Composition Floor Setter Relationship Specialty Start Date End Date Braydon Sykes MD [address] [place] [phone] PCP - General Internal Medicine 06/03/24 documented as of this encounter
== END 2024-11-22 10:33 | disposition home or self-care (01) ==
LOC: HO.HGI 09:50
PROVIDERS: PCP Internal Medicine; Visit Provider Nurse Practitioner
DX: K21.9 Gastro-esophageal reflux disease without esophagitis (principal); K59.04 Chronic idiopathic constipation; K20.90 Esophagitis, unspecified without bleeding; E66.01 Morbid (severe) obesity due to excess calories
CPT/HCPCS: 99214

== ENCOUNTER → 2024-11-22 09:49 | Outpatient (BNVA) | payer OTHER, SELFPAY | PROVIDERS: PCP Internal Medicine; Visit Provider Nurse Practitioner | DX: K21.9 Gastro-esophageal reflux disease without esophagitis (principal); K59.04 Chronic idiopathic constipation; Z12.11 Encounter for screening for malignant neoplasm of colon; K20.90 Esophagitis, unspecified without bleeding; R14.0 Abdominal distension (gaseous) | CPT/HCPCS: 99212 ==

== ENCOUNTER 2025-01-17 11:37 | Outpatient (AMB) | payer OTHER, SELFPAY ==
--- NOTE | 2025-01-17 11:44 | MHC.PC.OV ---
Intake Visit Reasons: sick visit Allergies niacin (Niaspan Extended-Release) Allergy (Intermediate, Verified 11/22/24 09:55) skin blisters tramadol Allergy (Intermediate, Verified 11/22/24 09:55) seizures barley (BARLEY) Allergy (Unknown, Verified 11/22/24 09:55) UNKNOWN fluticasone (Advair Diskus) Allergy (Unknown, Verified 11/22/24 09:55) Shortness of Breath ibuprofen Allergy (Unknown, Verified 11/22/24 09:55) Swelling naratriptan Allergy (Unknown, Verified 11/22/24 09:55) unknown Penicillins (PENICILLINS) Allergy (Unknown, Verified 11/22/24 09:55) Unknown sumatriptan Allergy (Unknown, Verified 11/22/24 09:55) unknown trazodone (TRAZODONE) Allergy (Unknown, Verified 11/22/24 09:55) UNKNOWN omalizumab (From Xolair) Adverse Reaction (Severe, Verified 11/22/24 09:55) Anaphylaxis rubber, unspecified Adverse Reaction (Severe, Verified 11/22/24 09:55) Unknown equate cough drops sugar free Allergy (Mild, Uncoded 09/01/24 09:09) Unknown silicone Adverse Reaction (Severe, Uncoded 09/01/24 09:09) Unknown vaseline Adverse Reaction (Severe, Uncoded 09/01/24 09:09) hives Medication List - Last Reconciled 01/17/25 by Thee Tay MD acetaminophen 1,000 mg PO Q6H PRN albuterol sulfate 90 mcg/actuation (Ventolin HFA) 2 puffs inhalation Q4H PRN aspirin 81 mg PO DAILY [Blood pressure monitor As directed] bupropion HCl SR 150 mg PO BID@0800,1200 celecoxib 200 mg PO DAILY cyclobenzaprine 5 mg PO ONCE PRN dexlansoprazole (Dexilant) 60 mg PO DAILY duloxetine 20 mg PO DAILY duloxetine mg PO .once at PM dupilumab (Dupixent) 300 mg (2 mL) subcut Q2W 28 days [fall detection monitor As directed] famotidine (Pepcid) 40 mg PO BEDTIME fluticasone propion-salmeterol 230-21 mcg/actuation (Advair HFA) 2 puffs inhalation Q12H fluticasone propionate 50 mcg/actuation (Flonase Allergy Relief) 2 sprays intranasal BID 90 days ipratropium-albuterol 0.5 mg-3 mg(2.5 mg base)/3 mL 3 mL inhalation Q4-6H PRN 30 days levothyroxine 150 mcg PO QAM 90 days lidocaine 4% 1 patch topical DAILY PRN lisinopril 5 mg PO DAILY loratadine 10 mg PO DAILY 30 days lorazepam 1 mg PO DAILY PRN montelukast 10 mg PO DAILY oxcarbazepine 150 mg PO BID simethicone 180 mg PO QID 30 days topiramate 25 mg PO BID Tobacco use date assessed: 05/13/24 Dental Screening Dental Screen Date: 05/13/24 HPI sick visit HPI Details History of Present Illness The patient is a 55-year-old female presenting with respiratory distress. Respiratory Distress: - The condition began with a sinus infection on Thursday, progressing to the chest. - Presents with a dry, persistent cough. - Reports difficulty breathing. - Started experiencing the symptoms approximately three to four days ago. - Denies coughing up phlegm. - Experienced a slight fever for a couple of days, which has since resolved. - Started taking Mucinex two days prior to the conversation, which has led to some improvement. - Reports associated shoulder pain, possibly due to coughing. Problem List - Sinus Infection - Respiratory Distress - coughing Patient Instructions - Continue taking Mucinex as needed. - Start the prescribed prednisone as directed for one week. - Report back in seven days with symptom progress. - start Z-Rodrigo as well Patient was informed and verbally consented to the use of an ambient scribe for clinic note documentation during this visit. REPLACED BY [facility] Medical History Colon cancer screening Hospital discharge follow-up Other specified hypothyroidism Left sided abdominal pain Influenza A H1N1 infection Stool incontinence Shoulder pain Anemia Bronchitis due to COVID-19 virus COVID Acute pneumonia Work related injury Acute diarrhea Paresthesias in left hand Dysuria PFO (patent foramen ovale) Shortness of breath Community acquired pneumonia Chronic idiopathic constipation Pre-op examination Encounter for routine gynecological examination LFT elevation Encounter for general adult medical examination with abnormal findings Respiratory tract congestion with cough Hospital discharge follow-up COVID-19 Tracheobronchitis COVID-19 Iron deficiency anemia Shoulder pain, right Nausea and vomiting PFO (patent foramen ovale) History of transesophageal echocardiography (LAN) Colitis Abnormal angiogram of head COVID-19 Asthma Thyroid disease GERD (gastroesophageal reflux disease) Anemia Aneurysm Surgical History History of surgery of uterus H/O endoscopy History of H/O brain surgery History of colonoscopy Family History Father Diabetes Arthritis Diverticulitis Leukemia Mental health disorder Lung cancer Mother Anemia Arthritis Colon polyps Myocardial infarction Brother Crohn's disease Testicular cancer Brother Cancer Paternal Grandfather Leukemia Other Substance use disorder Social History Household Members: Spouse and Children Housing: House Are you a primary adult day care worker to a significant other at home: No Do you presently have visiting nurse or other home services: No Alcohol intake: former Patient Tobacco Use Status: Former Tobacco user Tobacco use type: Cigarette Cigarettes Per Day: 10 e-Cigarette/Vaping Use: Never Used Second Hand Smoke Exposure: No Advance Directives Date on File: 04/09/21 service: No 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al status: employed 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: [employer]/ right hand dominant Cognitive needs: No Hearing needs: No Vision needs: Yes Questionnaire Thrive Questionnaire Date Thrive assessed: 01/13/25 I am a: Patient What is your living situation today?: I have a steady place to live Within the past 12 months, did the food you bought not last and you didn't have the money to get more?: Sometimes True Within the past 12 months, did you worry whether your food would run out before you got money to buy more?: Sometimes True Do you have trouble paying for medicines?: No Do you have trouble getting transportation to medical appointments?: Yes Do you have trouble paying your heating and electricity bill?: No Do you have trouble taking care of your child, family member or friend?: No Do you have trouble with day-to-day activities such as bathing, preparing meals, shopping, managing finances, etc.?: No Are you currently unemployed and looking for a job?: I choose not to answer this question Are you interested in more education?: No Please select the resources that you would like help with: None Currently or been in a relationship where the following occur: No concerns reported THRIVE Score: 3 AUDIT C Alcohol Use Questionnaire (AUDIT-C) 1. How often do you have a drink containing alcohol?: Monthly or less 2. How many drinks containing alcohol do you have on a typical day when you are drinking?: 1 or 2 Total Score: 1 MARKO-7 AMB Questionnaire MARKO-7 Date MARKO - 7 assessed: 06/16/24 Feeling nervous, anxious, or on edge: 1 = Several days Not being able to stop or control worryin = Several days Worrying too much about different things: 0 = Not at all Trouble relaxin = Not at all Being so restless that it is hard to sit still: 0 = Not at all Becoming easily annoyed or irritable: 0 = Not at all Feeling afraid as if something awful might happen: 0 = Not at all Total MARKO-7 score (0-4 normal; 5-9 mild; 10-14 moderate; 15-21 severe): 2 Source: Developed by Drs. Masood Arredondo, Lesly Pruitt, Thor Del Cid and colleagues, with an educational phil from [employer]. Review of Systems Const All systems reviewed & are unremarkable except as noted in HPI and below Physical exam (Primary Care) Tobacco/Smoking Status: Tobacco use Status Tobacco use date assessed 05/13/24 01/17/25 11:45 Patient Tobacco Use Status Former Tobacco user 01/17/25 11:45 Tobacco use type Cigarette 01/17/25 11:45 e-Cigarette/Vaping Use Never Used 01/17/25 11:45 Thrive Assessment: Date of Thrive Assessment Date Thrive assessed 01/13/25 01/17/25 11:45 Currently or been in a relationship where the following occur: No concerns reported Telehealth Telehealth Telehealth [facility] Location of provider rendering services: practice address Location of patient: address on file Patient Identification confirmed using: Name, : Yes Telehealth method: video (Attempted) Patient verbally consented to treatment: Yes Patient verbally consented to billing insurance company: Yes Patient informed of any privacy concerns related to visit: Yes Minutes spent on Phone/Video with Pt.: 13 Coding Level of Care Code Tele Est Pt Level 3 (09408) Diagnoses Acute bronchitis J20.8 Bronchitis organism: other organism Assessment & Plan Assessment & Plan (1) Acute bronchitis: Code(s): J20.9 - Acute bronchitis, unspecified Category: Medical Qualifiers: Bronchitis organism: other organism Qualified Code(s): J20.8 - Acute bronchitis due to other specified organisms Plan History of Present Illness The patient is a 55-year-old female presenting with respiratory distress. Respiratory Distress: - The condition began with a sinus infection on Thursday, progressing to the chest. - Presents with a dry, persistent cough. - Reports difficulty breathing. - Started experiencing the symptoms approximately three to four days ago. - Denies coughing up phlegm. - Experienced a slight fever for a couple of days, which has since resolved. - Started taking Mucinex two days prior to the conversation, which has led to some improvement. - Reports associated shoulder pain, possibly due to coughing. Problem List - Sinus Infection - Respiratory Distress - coughing Patient Instructions - Continue taking Mucinex as needed. - Start the prescribed prednisone as directed for one week. - Report back in seven days with symptom progress. - start Z-Rodrigo as well Patient was informed and verbally consented to the use of an ambient scribe for clinic note documentation during this visit. Medications: New prednisone 20 mg PO DAILY 7 tabs 0RF 7 days azithromycin Take 2 tablets today then 1 daily 250 mg PO ONCE 6 tabs 0RF 5 days J06.9 - Acute upper respiratory infection, unspecified
--- OUTSIDE RECORDS SUMMARY | 2025-01-17 14:32 | XMS_ITS | Clinical Summary ---
Author Organization [facility] Address [address] [place] [address] Phone Care Team Providers Care Oyster Opener Name Role Phone Thee Tay MD Primary Care Provider [phone] Social History Tobacco Use Types Packs/Day Years [...] [place] [id number] [facility] Lung Therapeutics [facility] BlueLithiumCLEVELAND [facility] MCO 36 TJ SYKESINTEGRIS COMM[facility] [place] CO [facility] COLUMBIAAxcelis Technologies [facility] MCO COLUMBIAFigma MCO Care Teams Oyster Opener Relationship Specialty Start Date End Date Thee Tay MD [address] [facility] [address] [place] [address] PCP - General Internal Medicine 01/13/17 Additional Source Comments The information contained in this document represents components of the legal health record. It is not the complete legal health record.[facility]
--- OUTSIDE RECORDS SUMMARY | 2025-01-17 14:32 | XMS_ITS | Encounter Summary ---
Author Organization [facility] Address [address] [place] [address] Care Team Providers Care Gradall Operator Name Role Phone Braydon Sykes MD Primary Care Provider [phone] Encounter Details Date Type Department Care Team (Late st Contact Info) Description 06/09/2024 Lab Requisition [facility] - Main Lab [address] [place] [address] Braydon Sykes MD [address] [place] [phone] Encounter for other general examination Social History [...] AM EST) WBC 5.6 4.8 - 10.8 K/Health system LAB HEMETOLOGY METHOD 06/09/2024 8:24 AM EST [facility] LAB RBC 4.40 3.80 - 4.80 M/Health system LAB HEMETOLOGY METHOD 06/09/2024 8:24 AM EST [facility] LAB Hemoglobin 12.1 11.5 - 16.0 g/dL LAB HEMETOLOGY METHOD 06/09/2024 8:24 AM [facility] LAB Hematocrit 39.2 35.0 - 47.0 % LAB HEMETOLOGY METHOD 06/09/2024 8:24 AM [facility] LAB MCV 89.9 79.0 - 98.0 FL LAB HEMETOLOGY METHOD 06/09/2024 8:24 AM [facility] LAB MCH 27.8 27.0 - 32.0 pcg LAB HEMETOLOGY METHOD 06/09/2024 8:24 AM [facility] LAB MCHC 30.9(L) 32.0 - 37.0 g/dL LAB HEMETOLOGY METHOD 06/09/2024 8:24 AM [facility] LAB RDW 14.8 11.0 - 15.0 % LAB HEMETOLOGY METHOD 06/09/2024 8:24 AM [facility] LAB Platelets 245 130 - 400 K/mcL LAB HEMETOLOGY METHOD 06/09/2024 8:24 AM [facility] LAB MPV 10.5 7.0 - 11.0 FL LAB HEMETOLOGY METHOD 06/09/2024 8:24 AM [facility] LAB NRBC 0.5 <1.0 % LAB HEMETOLOGY METHOD 06/09/2024 8:24 AM [facility] LAB NRBC Absolute 0.03 <0.10 K/mcL LAB HEMETOLOGY METHOD 06/09/2024 8:24 AM [facility] Blood Venous blood specimen / Unknown Venipuncture / Unknown 06/09/2024 6:00 AM EST 06/09/2024 7:30 AM EST us Braydon Sykes MD LAB BLOOD ORDERABLES Final Res ult [facility] [address] [place] [address], * Basic metabolic panel (06/09/2024 6:00 AM EST) Sodium 136 133 - 145 mmol/L LAB CHEMISTRY METHOD 06/09/2024 8:20 AM [facility] Potassium 4.4 3.5 - 5.5 mmol/L LAB CHEMISTRY METHOD 06/09/2024 8:20 AM [facility] Chloride 105 96 - 110 mmol/L LAB CHEMISTRY METHOD 06/09/2024 8:20 AM [facility] CO2 22 21 - 32 mmol/L LAB CHEMISTRY METHOD 06/09/2024 8:20 AM [facility] LAB Anion Gap 9 3 - 11 LAB CHEMISTRY METHOD 06/09/2024 8:20 AM [facility] Glucose 74 70 - 100 mg/dL LAB CHEMISTRY METHOD 06/09/2024 8:20 AM [facility] BUN 14 5 - 25 mg/dL LAB CHEMISTRY METHOD 06/09/2024 8:20 AM [facility] Creatinine 0.65 0.50 - 1.10 mg/dL LAB CHEMISTRY METHOD 06/09/2024 8:20 AM [facility] LAB eGFR 105 >=60 mL/min/1. 73m2 LAB CHEMISTRY METHOD 06/09/2024 8:20 AM [facility] LAB Comment:Calculation based on the Chronic Kidney Disease Epidemiology Collaboration (CKD-EPI) equation refit without adjustment for race. BUN/Creatinine Ratio 21.5 LAB CHEMISTRY METHOD 06/09/2024 8:20 AM [facility] LAB Calcium 9.0 8.5 - 10.5 mg/dL LAB CHEMISTRY METHOD 06/09/2024 8:20 AM [facility] LAB Blood Venous blood specimen / Unknown Venipuncture / Unknown 06/09/2024 6:00 AM EST 06/09/2024 7:30 AM EST us Braydon Sykes MD LAB BLOOD ORDERABLES Final Res ult [facility] [address] [place] [address], documented in this encounter Visit Diagnoses Diagnosis Encounter for other general examination documented in this encounter Care Teams Gradall Operator Relationship Specialty Start Date End Date Braydon Sykes MD [address] [place] [id number] PCP - General Internal Medicine 06/03/24 documented as of this encounter
--- OUTSIDE RECORDS SUMMARY | 2025-01-17 14:32 | XMS_ITS | Encounter Summary ---
Author Organization [facility] Address [address] [place] [phone] Phone Care Team Providers Care Screwhead Stoner And Polisher Name Role Phone Thee Tay MD Primary Care Provider [phone] Reason for Referral * Surgical (Within 1 month) - Closed Specialty Diagnoses / Procedures Referred By Carrie campos Referred To Contact personal property assessor Diagnoses Temporomandibular joint disorder (TMJ) System, Provider Not In, PhD [address] [address] Phone: tel: Referral ID Status Reason Start Date Expiration Date Visits Re quested Visits Authorized [id number] Closed 01/14/2017 01/14/2018 1 1 Scheduling Instructions For dental clearance related to cardiac surgery, joint replacement surgery, oncologic care and organ transplantation please refer to Oral Medicine or Dentistry. Patients should present to appointment with any relavant office notes, imaging, and pathology results. Encounter Details Date Type Department Care Team (Latest Contact Info) Description 01/14/2017 Transcribe Orders [facility] Referral Management [address] [place] [address] Unknown, Unknown, Temporomandibular joint disorder (TMJ) (Primary Dx) Social History Tobacco Use Types Packs/Day Years Used Date Smoking Tobacco: Never Assessed Comments Unknown Sex and Gender Information Value Date Recorded Sex Assigned at Not on file Legal Sex Female 9:33 PM EDT Gender Identity Not on file Sexual Orientation Not on file documented as of this encounter Plan of Treatment Scheduled Referrals Name Type Priority Associated Diagnoses Order Schedule Ambulatory referral to [facility] Oral Maxillofacial Surgery Outpatient Referral Routine Temporomandibular joint disorder (TMJ) Ordered: 01/14/2017 documented as of this encounter Visit Diagnoses Diagnosis Temporomandibular joint disorder (TMJ)- Primary documented in this encounter Care Teams Screwhead Stoner And Polisher Relationship Specialty Start Date End Date Thee Tay MD [facility] [place] [address] PCP - General Internal Medicine 01/13/17 documented as of this encounter Additional Source Comments The information contained in this document represents components of the legal health record. It is not the complete legal health record.[facility]
--- OUTSIDE RECORDS SUMMARY | 2025-01-17 14:32 | XMS_ITS | Encounter Summary ---
Author Organization [facility] Address [address] [place] [address] Care Team Providers Care Photograph Developer Name Role Phone Brayodn Sykes MD Primary Care Provider [phone] Encounter Details Date Type Department Care Team (Late st Contact Info) Description 06/03/2024 Lab Requisition [facility] - Main Lab 299 [facility] [employer] [place] [address] Braydon Sykes MD [address] [place] [address] Encounter for other general examination Social History [...] AM EST) WBC 5.6 4.8 - 10.8 K/[facility] LAB HEMETOLOGY METHOD 06/03/2024 11:[address] [facility] RBC 4.80 3.80 - 4.80 M/[facility] LAB HEMETOLOGY METHOD 06/03/2024 11:[address] [...] HOSPITAL LAB Platelets 199 130 - 400 K/[facility] LAB HEMETOLOGY METHOD 06/03/2024 11:[address] [facility] MPV 10.8 7.0 - 11.0 FL LAB HEMETOLOGY METHOD 06/03/2024 11:[address] [facility] NRBC 0.0 <1.0 % LAB HEMETOLOGY METHOD 06/03/2024 11:[address] [facility] NRBC Absolute 0.00 <0.10 K/[facility] LAB HEMETOLOGY METHOD 06/03/2024 11:[address] [...] 11:[address] [facility] Basophils Absolute 0.03 0.00 - 0.20 K/mcL LAB HEMETOLOGY METHOD 06/03/2024 11:[address] [facility] Immature Granulocytes Absolute 0.02 0.00 - 0.03 K/mcL LAB HEMETOLOGY METHOD 06/03/2024 11:[address] [facility] Blood Venous blood specimen / Unknown Venipuncture / Unknown 06/03/2024 6:18 AM EST 06/03/2024 10:27 AM EST Braydon Sykes MD LAB BLOOD ORDERABLES Final Res ult Performing Organization Address [facility]/ZIP Co de Phone Number [facility] [address] [place] [address], [place] [phone] * Magnesium (06/03/2024 6:18 AM EST) Pathologist [facility] Magnesium 2.3 1.9 - 2.6 mg/dL LAB CHEMISTRY METHOD 06/03/2024 11:57 AM EST [facility] Blood Venous blood specimen / Unknown Venipuncture / Unknown 06/03/2024 6:18 AM EST 06/03/2024 10:27 AM EST Braydon Sykes MD LAB BLOOD ORDERABLES Final Res ult Performing Organization Address [facility]/ZIP Co de Phone Number [facility] [address] [place] [address], [place] [phone] * (ABNORMAL) Comprehensive metabolic panel (06/03/2024 6:18 AM EST) [facility] Sodium 136 133 - 145 mmol/L LAB CHEMISTRY METHOD 06/03/2024 11:[address] [facility] Potassium 4.1 3.5 - 5.5 [...] [facility] Comment:Calculation based on the Chronic [...] 11:[address] [facility] Total Bilirubin 0.2 0.0 - 1.4 mg/dL LAB CHEMISTRY METHOD 06/03/2024 11:[address] [facility] Blood Venous blood specimen / Unknown Venipuncture / Unknown 06/03/2024 6:18 AM EST 06/03/2024 10:27 AM EST us Braydon Sykes MD LAB BLOOD ORDERABLES Final Res ult [facility] [address] [place] [address], documented in this encounter Visit Diagnoses Diagnosis Encounter for other general examination documented in this encounter Care Teams Photograph Developer Relationship Specialty Start Date End Date Braydon Sykes MD [address] [place] [address] PCP - General Internal Medicine 06/03/24 documented as of this encounter
--- OUTSIDE RECORDS SUMMARY | 2025-01-17 14:32 | XMS_ITS | Clinical Summary ---
Author Organization 299 [facility] Address [address] [place] [address] Phone Care Team Providers Care Outside Food Server Name Role Phone Braydon Sykes MD Primary Care Provider [phone] Social History Tobacco Use Types Packs/Day Years [...] 2021 Zoster Vaccines (1 of 2) 2021 Depression Screening 04/27/2024 Colorectal Cancer Screening: Colonoscopy 06/03/2024 HIV Screening 06/03/2024 Hepatitis C Screening 06/03/2024 Social Influencers of Health Screening 06/03/2024 COVID-19 Vaccine (1 - 2023-2 5 season) 2024 Influenza Vaccine (#1) 2024 RSV Immunization Adult Patie nts (1 - 1-dose 75+ series) 2046 HIB Vaccines Aged Out No longer eligi [...] topic Insurance MEDICAID - [place] Care Teams Outside Food Server Relationship Specialty Start Date End Date Braydon Sykes MD [address] [place] [id number] PCP - General Internal Medicine 06/03/24
== END 2025-01-17 16:56 | disposition home or self-care (01) ==
LOC: HO.HMCC 11:37
PROVIDERS: PCP Internal Medicine; Visit Provider Internal Medicine
DX: J20.8 Acute bronchitis due to other specified organisms (principal)

== ENCOUNTER 2025-01-20 14:33 | Outpatient (AMB) | payer OTHER, SELFPAY ==
--- NOTE | 2025-01-20 14:34 | AM.OFFWIN_ITS ---
Intake Vital Signs 01/20/25 14:35 Height 5 ft 5 in Weight 243 lb BMI 40.4 BP 114/72 Blood Pressure Location Lt brachial Position Sitting Pulse 101 H Pulse Source Pulse Oximeter Temp 97.9 F Temp Source Oral Pulse Oximetry (%) 95 Oxygen Delivery Method Room Air Intake Visit Reasons: ep chest congestion Patient Tobacco Use Status: Former Tobacco user City Dispatch Supervisor Required: No Accompanied by: Self / Same As Patient Allergies niacin (Niaspan Extended-Release) Allergy (Intermediate, Verified 01/20/25 14:38) skin blisters tramadol Allergy (Intermediate, Verified 01/20/25 14:38) seizures barley (BARLEY) Allergy (Unknown, Verified 01/20/25 14:38) UNKNOWN fluticasone (Advair Diskus) Allergy (Unknown, Verified 01/20/25 14:38) Shortness of Breath ibuprofen Allergy (Unknown, Verified 01/20/25 14:38) Swelling naratriptan Allergy (Unknown, Verified 01/20/25 14:38) unknown Penicillins (PENICILLINS) Allergy (Unknown, Verified 01/20/25 14:38) Unknown sumatriptan Allergy (Unknown, Verified 01/20/25 14:38) unknown trazodone (TRAZODONE) Allergy (Unknown, Verified 01/20/25 14:38) UNKNOWN omalizumab (From Xolair) Adverse Reaction (Severe, Verified 01/20/25 14:38) Anaphylaxis rubber, unspecified Adverse Reaction (Severe, Verified 01/20/25 14:38) Unknown equate cough drops sugar free Allergy (Mild, Uncoded 09/01/24 09:09) Unknown silicone Adverse Reaction (Severe, Uncoded 09/01/24 09:09) Unknown vaseline Adverse Reaction (Severe, Uncoded 09/01/24 09:09) hives HPI HPI Comments History of Present Illness Details History - The patient is a 55-year-old female pr esenting with a persistent cough and congestion for 7 days. - The cough began after a sinus infectio n contracted at a family gathering. - The cough is severe, leading to syncop e and a toe fracture. - The patient has a history of eosinophi lic asthma and COPD, which may exacerbate the cough. - She has been using inhalers [facility]. - The patient reports menopausal symptom s, including sweating, but denies fever or chills. - She experienced chest pain and possibl e rib contusion due to severe coughing. - Current medications include prednisone and azithromycin prescribed by her PCP 3 days ago, though the latter was discontinued due to lack of improvement. Physical Exam General: Cooperative, healthy appearing, comfortable and no acute distress Orientation/consciousness: Patient oriented x3 Limitations: No limitations Head: Normal to inspection Ears: Hearing grossly normal bilaterally, external ears normal and TM's normal bilaterally Nose: Normal external nose present, Normal nares present and No nasal discharge present Face and sinus: Normal facial exam and Yes sinuses nontender Mouth: Normal oral and palatal mucosa present and moist mucous membranes Throat: Yes tonsils normal, Yes uvula midline. Posterior oropharynx erythema, no exudates Eyes: Appearance normal, both eyes and all related structures Neck: Normal visual inspection, full ROM Respiratory: Clear to auscultation bilaterally. Normal respiratory effort, able to speak in complete sentences, Actively coughing, no respiratory distress, not tachypneic, no tripod positioning and no use of accessory muscles Cardiovascular: Regular rate and rhythm. Normal S1 and S2 Skin: No rashes or lesions noted Neuro: Patient oriented x3 Extremities: Normal to inspection and Yes no clubbing, cyanosis or edema Review of Systems - Respiratory: Reports severe cough lead ing to syncope, denies wheezing - General: Denies fever or chills, repor ts sweating attributed to menopausal symptoms - Musculoskeletal: Reports chest pain du e to coughing, possible rib contusion All systems reviewed and are unremarkable except as noted in HPI [facility] Medical History Colon cancer screening Hospital discharge follow-up Other specified hypothyroidism Left sided abdominal pain Influenza A H1N1 infection Stool incontinence Shoulder pain Anemia Bronchitis due to COVID-19 virus COVID Acute pneumonia Work related injury Acute diarrhea Paresthesias in left hand Dysuria PFO (patent foramen ovale) Shortness of breath Community acquired pneumonia Chronic idiopathic constipation Pre-op examination Encounter for routine gynecological examination LFT elevation Encounter for general adult medical examination with abnormal findings Respiratory tract congestion with cough Hospital discharge follow-up COVID-19 Tracheobronchitis COVID-19 Iron deficiency anemia Shoulder pain, right Nausea and vomiting PFO (patent foramen ovale) History of transesophageal echocardiography (LAN) Colitis Abnormal angiogram of head COVID-19 Asthma Thyroid disease GERD (gastroesophageal reflux disease) Anemia Aneurysm Surgical History History of surgery of uterus H/O endoscopy History of H/O brain surgery History of colonoscopy Family History Father Diabetes Arthritis Diverticulitis Leukemia Mental health disorder Lung cancer Mother Anemia Arthritis Colon polyps Myocardial infarction Brother Crohn's disease Testicular cancer Brother Cancer Paternal Grandfather Leukemia Other Substance use disorder Social History Household Members: Spouse and Children Housing: House Are you a primary healthcare administrative assistant to a significant other at home: No Do you presently have visiting nurse or other home services: No Alcohol intake: former Patient Tobacco Use Status: Former Tobacco user Tobacco use type: Cigarette Cigarettes Per Day: 10 e-Cigarette/Vaping Use: Never Used Second Hand Smoke Exposure: No Advance Directives Date on File: 04/09/21 service: No 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al status: employed 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: [employer]/ right hand dominant Cognitive needs: No Hearing needs: No Vision needs: Yes Physical Exam Vital Signs: Last Vital Signs Temp 97.9 F 01/20/25 14:35 Pulse 101 H 01/20/25 14:35 BP 114/72 01/20/25 14:35 Pulse Ox 95 01/20/25 14:35 Oxygen Delivery Method Room Air 01/20/25 14:35 BMI result Body Mass Index 40.4 Assessment & Plan Assessment & Plan (1) Lower respiratory infection (e.g., bronchitis, pneumonia, pneumonitis, pulmonitis): Code(s): J22 - Unspecified acute lower respiratory infection Plan: Plan Patient was informed and verbally consented to the use of an ambient scribe for clinic note documentation during this visit. - VSS, pt well appearing and PE unremarkable - Sent viral panel - Plan includes symptomatic treatment with Mucinex and monitoring for resolution. - Prescribed Tessalon Perles for symptomatic relief. - Advised chest x-ray to rule out pneumonia due to severity of cough x 7 days - Continued use of inhalers and nebulizer for asthma/COPD management. - Continue prednisone, may stop Zpak as likely viral. Orders: Orders XR chest 2V Today R05.9 - Cough, unspecified Resp Pathogen Panel - [facility] Today J06.9 - Acute upper respiratory infection, unspecified Medications: New benzonatate 200 mg PO BEDTIME PRN 10 caps 0RF cough Coding Level of Care Code Est Pt Level 4 (30108) Diagnoses Lower respiratory infection (e.g., bronchitis, pneumonia, pneumonitis, pulmonitis) J22
[2025-01-20 14:35] VITALS: BP 114/72; PULSE 101; TEMP 36.6; O2SAT 95; BMI 40.4
--- OUTSIDE RECORDS SUMMARY | 2025-01-20 15:28 | XMS_ITS | Encounter Summary ---
Author Organization [facility] Address [address] [place] [address] Care Team Providers Care Billet Worker Name Role Phone Braydon Sykes MD Primary Care Provider Encounter Details Date Type Department Care Team (Late st Contact Info) Description 06/09/2024 Lab Requisition [facility] - Main Lab [address] [place] [address] Braydon Sykes MD [address] [place] [phone] Encounter for other general examination Social History [...] AM EST) WBC 5.6 4.8 - 10.8 K/[facility] LAB HEMETOLOGY METHOD 06/09/2024 8:24 AM EST [facility] LAB RBC 4.40 3.80 - 4.80 M/[facility] LAB HEMETOLOGY METHOD 06/09/2024 8:24 AM EST [facility] LAB Hemoglobin 12.1 [...] ult [facility] [address] [place] [address], * Basic metabolic panel (06/09/2024 6:00 AM [...] [facility] Comment:Calculation based on the [...] MD LAB BLOOD ORDERABLES Final Res ult [facility] [address] [place] [address], documented in this encounter Visit Diagnoses Diagnosis Encounter for other general examination documented in this encounter Care Teams Billet Worker Relationship Specialty Start Date End Date Braydon Sykes MD [address] [place] [address] PCP - General Internal Medicine 06/03/24 documented as of this encounter
--- OUTSIDE RECORDS SUMMARY | 2025-01-20 15:28 | XMS_ITS | Encounter Summary ---
Author Organization [facility] Address [address] [place] [address] Phone Care Team Providers Care Rehabilitation Case Coordinator Name Role Phone Thee Tay MD Primary Care Provider [phone] Reason for Referral * Surgical (Within 1 month) - Closed Specialty Diagnoses / Procedures Referred By Carrie campos Referred To Contact molding process technician Diagnoses Temporomandibular joint disorder (TMJ) System, Provider Not In, PhD [address] [address] Phone: tel: Referral ID Status Reason Start Date Expiration Date Visits Re quested Visits Authorized [id number] Closed 01/14/2017 01/14/2018 1 1 Scheduling Instructions For dental clearance related to cardiac surgery, joint replacement surgery, oncologic care and organ transplantation please refer to Oral Medicine or Dentistry. Patients should present to appointment with any relavant office notes, imaging, and pathology results. Encounter Details Date Type Department Care Team (Latest Contact Info) Description 01/14/[address] [facility] Referral Management [address] [place] [address] Unknown, Unknown, Temporomandibular joint disorder (TMJ) (Primary [...] Associated Diagnoses Order Schedule Ambulatory referral to [facility] Oral Maxillofacial Surgery Outpatient Referral Routine Temporomandibular joint disorder (TMJ) Ordered: 01/14/2017 documented as of this encounter Visit Diagnoses Diagnosis Temporomandibular joint disorder (TMJ)- Primary documented in this encounter Care Teams Rehabilitation Case Coordinator Relationship Specialty Start Date End Date Thee Tay MD [facility] [place] [address] PCP - General Internal Medicine 01/13/17 documented as of this encounter Additional Source Comments The information contained in this document represents components of the legal health record. It is not the complete legal health record.[facility]
--- OUTSIDE RECORDS SUMMARY | 2025-01-20 15:28 | XMS_ITS | Clinical Summary ---
Author Organization [facility] Address [address] [place] [address] Phone Care Team Providers Care Quality Process Engineer Name Role Phone Thee Tay MD Primary Care Provider Social History Tobacco Use Types Packs/Day Years [...] [place] [id number] [facility] [employer] Mon[employer] AnalyticsHEALTH MCO Monkey AnalyticsOH[facility] Joyus [facility] Noxxon PharmaOHIO VALLEY HOSPITAL MCO RICHMONDAconite Technology [facility] MCO RICHMONDWeSpeke MCO Care Teams Quality Process Engineer Relationship Specialty Start Date End Date Thee Tay MD [address] [facility] [address] [place] [address] PCP - General Internal Medicine 01/13/17 Additional Source Comments The information contained in this document represents components of the legal health record. It is not the complete legal health record.[facility]
--- OUTSIDE RECORDS SUMMARY | 2025-01-20 15:28 | XMS_ITS | Encounter Summary ---
Author Organization [facility] Address [address] [place] [address] Care Team Providers Care Biomass Facilitator Name Role Phone Braydon Sykes MD Primary Care Provider Encounter Details Date Type Department Care Team (Late st Contact Info) Description 06/03/[address] [facility] - Main Lab 299 [facility] [place] [address] Braydon Sykes MD [address] [place] [address] Encounter for other general examination Social History [...] AM EST) WBC 5.6 4.8 - 10.8 K/[facility] LAB HEMETOLOGY METHOD 06/03/2024 11:27 AM [facility] RBC 4.80 3.80 - 4.80 M/[facility] LAB HEMETOLOGY METHOD 06/03/2024 11:27 AM [facility] [...] HOSPITAL LAB Platelets 199 130 - 400 K/[facility] LAB HEMETOLOGY METHOD 06/03/2024 11:27 AM [facility] MPV 10.8 7.0 - 11.0 [place] LAB HEMETOLOGY METHOD 06/03/2024 11:27 AM [facility] NRBC 0.0 <1.0 % LAB HEMETOLOGY METHOD 06/03/2024 11:27 AM [facility] NRBC Absolute 0.00 <0.10 K/[facility] LAB HEMETOLOGY METHOD 06/03/2024 11:27 AM GRACE [...] ORDERABLES Final Res ult Performing Organization Address [facility]/ZIP Co de Phone Number [facility] [address] [place] [address], [place] [phone] * Magnesium (06/03/2024 6:18 AM EST) Pathologist [facility] Magnesium 2.3 1.9 - 2.6 mg/dL LAB CHEMISTRY METHOD 06/03/2024 11:[address] [facility] Blood Venous blood specimen / Unknown Venipuncture / Unknown 06/03/2024 6:18 AM EST 06/03/2024 10:27 AM EST Braydon Sykes MD LAB BLOOD ORDERABLES Final Res ult Performing Organization Address [facility]/ZIP Co de Phone Number [facility] [address] [place] [address], [place] [phone] * (ABNORMAL) Comprehensive metabolic panel (06/03/2024 6:18 AM EST) [facility] Sodium 136 133 - 145 mmol/L LAB [...] [facility] Comment:Calculation based on the Chronic [...] MD LAB BLOOD ORDERABLES Final Res ult [facility] [address] [place] [address], documented in this encounter Visit Diagnoses Diagnosis Encounter for other general examination documented in this encounter Care Teams Biomass Facilitator Relationship Specialty Start Date End Date Braydon Sykes MD [address] [place] [address] PCP - General Internal Medicine 06/03/24 documented as of this encounter
--- OUTSIDE RECORDS SUMMARY | 2025-01-20 15:28 | XMS_ITS | Clinical Summary ---
Author Organization 299 [facility] Address [address] [place] [address] Phone Care Team Providers Care Boot And Shoe Repairman Name Role Phone Braydon Sykes MD Primary Care Provider [phone] Social History Tobacco Use Types Packs/Day Years [...] topic Insurance MEDICAID - [place] Care Teams Boot And Shoe Repairman Relationship Specialty Start Date End Date Braydon Sykes MD [address] [place] [phone] PCP - General Internal Medicine 06/03/24
== END 2025-01-20 16:15 | disposition home or self-care (01) ==
PROVIDERS: PCP Internal Medicine; Visit Provider Physician Assistant
DX: J22 Unspecified acute lower respiratory infection (principal)

== ENCOUNTER 2025-01-20 14:33 | Outpatient (REF) | payer OTHER, SELFPAY ==
--- NOTE | ~2025-01-20 | XR_ITS ---
EXAMINATION: XR CHEST CLINICAL INFORMATION: R05.9 - Cough, unspecified COMPARISON: 02/21/2024 TECHNIQUE: 2 views of the chest were obtained. FINDINGS: No significant abnormality is noted involving the heart, lungs, mediastinum, bony thorax or soft tissues. XR/XR chest 2V IMPRESSION: No acute disease Electronically signed by: Avtar García MD 01/20/2025 03:11 PM EDT
[2025-01-21 10:44] LABS: Chlamydia pneumoniae PCR Not Detected (Not Detect.); Coronavirus 229E PCR Not Detected (Not Detect.); Coronavirus HKU1 PCR Not Detected (Not Detect.); Coronavirus NL63 PCR Not Detected (Not Detect.); Coronavirus OC43 PCR Not Detected (Not Detect.); RSV PCR Not Detected (Not Detect.); Rhino/Enterovirus PCR Detected (Not Detect.)
[2025-01-21 10:55] LABS: Influenza A H1 PCR Not Detected (Not Detect.); Influenza A H1-2009 PCR Not Detected (Not Detect.); Influenza A H3 PCR Not Detected (Not Detect.); SARS-CoV-2 PCR Not Detected (Not Detect.)
== END 2025-01-20 14:34 | disposition home or self-care (01) ==
LOC: HO.HMGCX 14:33
PROVIDERS: PCP Internal Medicine; Visit Provider Physician Assistant
DX: J20.8 Acute bronchitis due to other specified organisms (principal); J22 Unspecified acute lower respiratory infection; R05.9 Cough, unspecified; Z87.891 Personal history of nicotine dependence; Z79.52 Long term (current) use of systemic steroids; Z79.51 Long term (current) use of inhaled steroids
CPT/HCPCS: 71046; 87633; 99212

== ENCOUNTER → 2025-01-20 14:55 | Outpatient (BNV) | payer OTHER, SELFPAY | PROVIDERS: PCP Internal Medicine; Visit Provider Radiology Diagnostic Radiology | DX: R06.02 Shortness of breath (principal) | CPT/HCPCS: 71046 ==

== ENCOUNTER 2025-01-21 12:55 | Inpatient (IN) | payer OTHER, SELFPAY ==
[2025-01-21] VITALS (13 sets, daily range): BP systolic 83–131; BP diastolic 49–86; PULSE 72–107; RESP 16–19; TEMP 36.5–36.9; O2SAT 95–98; BMI 36.3; BMI 37.1
--- NOTE | 2025-01-21 | ECG_ITS ---
Test Reason : N/V Blood Pressure : */* mmHG Vent. Rate : 95 BPM Atrial Rate : 95 BPM P-R Int : 150 ms QRS Dur : 84 ms QT Int : 340 ms P-R-T Axes : 35 -12 13 degrees QTcB Int : 427 ms Normal sinus rhythm Possible Anterolateral infarct (cited on or before 06-Nov-2023) Abnormal ECG When compared with ECG of 29-May-2024 13:53, No significant change was found Referred By: Generic ED Physician Electronically Signed By: Kd Hernandez
--- NOTE | ~2025-01-21 | CT_ITS ---
CLINICAL HISTORY: WBC 30 K, ABD, diarrhea evaluate for source of inf CT abdomen and pelvis with IV contrast. COMPARISON: CT abdomen and pelvis dated 11/06/23 at 22:36 EDT FINDINGS: Small hiatal hernia. Liver is enlarged with right lobe measuring 19.5 cm. Spleen is enlarged measuring 15.5 cm in width. Normal pancreas. Normal adrenal glands. Symmetric renal enhancement. No hydronephrosis. Normal appendix. Diffuse thickening of the mucosa of the large bowel with mild inflammatory changes in the adjacent fat. No bowel obstruction. No mesenteric or retroperitoneal lymphadenopathy. Normal abdominal aorta. Urinary bladder is contracted. No adnexal mass. Small fat containing umbilical hernia. No acute fracture or suspicious bone lesion. IMPRESSION: 1. Findings consistent with an infectious or inflammatory colitis. No bowel obstruction. 2. Hepatosplenomegaly. 3. Small hiatal hernia. This document has been electronically signed by: Hunter Rivas MD on 01/21/2025 17:56:46
--- NOTE | ~2025-01-21 | XR_ITS ---
CLINICAL HISTORY: Shortness of breath, rule out pneumonia Single view of the chest. COMPARISON: XR chest dated 01/20/25 at 15:09 EDT FINDINGS: Normal heart and mediastinal contours. No consolidation. No definite pleural effusion. No pneumothorax. Mild spondylosis. Chronic healed left humeral neck fracture deformity. No acute fracture identified. IMPRESSION: 1. No consolidation. This document has been electronically signed by: Hunter Rivas MD on 01/21/2025 16:28:38
--- NOTE | ~2025-01-21 | CT_ITS ---
CLINICAL HISTORY: Syncope, cough, SOB, WBC 30 K --- Additional Notes or Special Instructions: R O pneumonia versus PE CT angiography of the chest with IV contrast. 3D/MIP post processing reconstructions were performed. COMPARISON: CT chest dated 04/24/24 at 19:25 EST FINDINGS: There are no intraluminal filling defects to suggest pulmonary embolism. No evidence of right heart strain. No supraclavicular or axillary lymphadenopathy. Ascending aorta and main pulmonary artery are normal in caliber. No pericardial effusion. Small hiatal hernia. Distal esophageal wall thickening. No mediastinal or hilar lymphadenopathy. Small right pleural effusion. No consolidation. Trachea and central airways are clear. No significant bronchial wall thickening. Cholelithiasis present within the gallbladder. There is gallbladder wall thickening. Small marginal osteophytes along the midthoracic spine. No acute fracture. IMPRESSION: 1. No evidence of pulmonary embolism. 2. Small right pleural effusion. 3. Cholelithiasis with gallbladder wall thickening. This can be associated with cholecystitis. Recommend correlation clinically. 4. Small hiatal hernia with distal esophageal wall thickening can be associated with gastroesophageal reflux disease and esophagitis. This document has been electronically signed by: Hunter Rivas MD on 01/21/2025 17:28:33
--- NOTE | ~2025-01-21 | US_ITS ---
CLINICAL HISTORY: ruq pain US abdomen limited. COMPARISON: CT abdomen and pelvis dated 01/21/25 at 15:27 EDT Technique: Real time sonographic imaging, including color-flow imaging, was performed by the garage door service technician. Multiple payable representative static images were saved for review. FINDINGS: The visualized aorta and inferior vena cava are normal caliber. The visualized portions of the pancreas appear normal. The liver has normal echotexture.Well-defined hyperattenuating lesion present within the right lobe of the liver measuring 0.8 x 0.7 x 0.9 cm without appreciable internal vascularity. The main portal vein is antegrade. Liver, right lobe size: 18.5 cm, enlarged. Multiple cholelithiasis present within the gallbladder shadowing at the posterior wall. No pericholecystic inflammatory changes. Gallbladder wall: approximately 2-3 mm, normal. Common bile duct: 3 mm, normal. Right kidney: Cortical medullary differentiation is maintained. No calculus or focal parenchymal abnormality identified. No hydronephrosis. Right kidney length: 10.7 cm No free intraperitoneal fluid identified. IMPRESSION: 1. Multiple cholelithiasis. No additional evidence for cholecystitis. 2. No evidence of right renal obstruction. 3. Hepatomegaly. This document has been electronically signed by: Hunter Rivas MD on 01/21/2025 19:58:17
--- OUTSIDE RECORDS SUMMARY | 2025-01-21 13:47 | XMS_ITS | Clinical Summary ---
Author Organization [facility] Address [address] [place] [address] Phone Care Team Providers Care Field Naturalist Name Role Phone Thee Tay MD Primary Care Provider [phone] Social History Tobacco Use Types Packs/Day Years [...] Not [place] [id number] [facility] [employer] O DermaMedicsHEALTH MCO DermaMedicsKEENAN [facility] MCO [facility] Pixel Velocity [facility] BrightcoveKEENAN PRIVATE [facility] MCO MILLEDGEVILLEMapHazardly [facility] MCO MILLEDGEVILLEXiao [employer] MCO Care Teams Field Naturalist Relationship Specialty Start Date End Date Thee Tay MD [address] [facility] [address] [place] [address] PCP - General Internal Medicine 01/13/17 Additional Source Comments The information contained in this document represents components of the legal health record. It is not the complete legal health record.[facility]
--- OUTSIDE RECORDS SUMMARY | 2025-01-21 13:47 | XMS_ITS | Encounter Summary ---
Author Organization [facility] Address [address] [place] [address] Phone Care Team Providers Care Mammography Supervisor Name Role Phone Thee Tay MD Primary Care Provider [phone] Reason for Referral * Surgical (Within 1 month) - Closed Specialty Diagnoses / Procedures Referred By Carrie campos Referred To Contact coil tier Diagnoses Temporomandibular joint disorder (TMJ) System, Provider Not In, PhD [address] [address] Phone: tel: Referral ID Status Reason Start Date Expiration Date Visits Re quested Visits Authorized [id number] Closed 01/14/2017 01/14/2018 1 1 Scheduling Instructions For dental clearance related to cardiac surgery, joint replacement surgery, oncologic care and organ transplantation please refer to Oral Medicine or Dentistry. Patients should present to appointment with any relavant office notes, imaging, and pathology results. Encounter Details Date Type Department Care Team (Latest Contact Info) Description 01/14/2017 Transcribe Orders [facility] Referral Management [address] [place] [phone] Unknown, Unknown, Temporomandibular joint disorder (TMJ) (Primary [...] Associated Diagnoses Order Schedule Ambulatory referral to [facility] Oral Maxillofacial Surgery Outpatient Referral Routine Temporomandibular joint disorder (TMJ) Ordered: 01/14/2017 documented as of this encounter Visit Diagnoses Diagnosis Temporomandibular joint disorder (TMJ)- Primary documented in this encounter Care Teams Mammography Supervisor Relationship Specialty Start Date End Date Thee Tay MD [facility] [place] [address] PCP - General Internal Medicine 01/13/17 documented as of this encounter Additional Source Comments The information contained in this document represents components of the legal health record. It is not the complete legal health record.[facility]
--- OUTSIDE RECORDS SUMMARY | 2025-01-21 13:47 | XMS_ITS | Encounter Summary ---
Author Organization [facility] Address [address] [place] [address] Care Team Providers Care Medical Anthropology Director Name Role Phone Braydon Sykes MD Primary Care Provider [phone] Encounter Details Date Type Department Care Team (Late st Contact Info) Description 06/09/2024 Lab Requisition [facility] - Main Lab [address] [place] [address] Braydon Sykes MD [address] [place] [id number] Encounter for other general examination Social History [...] AM EST) WBC 5.6 4.8 - 10.8 K/[facility] LAB HEMETOLOGY METHOD 06/09/2024 8:24 AM EST [facility] LAB RBC 4.40 3.80 - 4.80 M/[facility] LAB HEMETOLOGY METHOD 06/09/2024 8:24 AM EST [facility] LAB Hemoglobin 12.1 11.5 - 16.0 g/dL LAB HEMETOLOGY METHOD 06/09/2024 8:24 AM [facility] LAB Hematocrit 39.2 35.0 - 47.0 % LAB HEMETOLOGY METHOD 06/09/2024 8:24 AM [facility] LAB MCV 89.9 79.0 - 98.0 FL LAB HEMETOLOGY METHOD 06/09/2024 8:24 AM [facility] LAB MCH 27.8 27.0 - 32.0 pcg LAB HEMETOLOGY METHOD 06/09/2024 8:24 AM [facility] LAB MCHC 30.9(L) 32.0 - 37.0 g/dL LAB HEMETOLOGY METHOD 06/09/2024 8:24 AM [facility] LAB RDW 14.8 11.0 - 15.0 % LAB HEMETOLOGY METHOD 06/09/2024 8:24 AM [facility] LAB Platelets 245 130 - 400 K/mcL LAB HEMETOLOGY METHOD 06/09/2024 8:24 AM [facility] LAB MPV 10.5 7.0 - 11.0 FL LAB HEMETOLOGY METHOD 06/09/2024 8:24 AM [facility] LAB NRBC 0.5 <1.0 % LAB HEMETOLOGY METHOD 06/09/2024 8:24 AM [facility] LAB NRBC Absolute 0.03 <0.10 K/mcL LAB HEMETOLOGY METHOD 06/09/2024 8:24 AM [facility] LAB Blood Venous blood specimen / Unknown Venipuncture / Unknown 06/09/2024 6:00 AM EST 06/09/2024 7:30 AM EST us Braydon Sykes MD LAB BLOOD ORDERABLES Final Res ult [facility] [address] [place] [address], * Basic metabolic panel (06/09/2024 6:00 AM EST) Sodium 136 133 - 145 mmol/L LAB CHEMISTRY METHOD 06/09/2024 8:20 AM [facility] Potassium 4.4 3.5 - 5.5 mmol/L LAB CHEMISTRY METHOD 06/09/2024 8:20 AM [facility] Chloride 105 96 - 110 mmol/L LAB CHEMISTRY METHOD 06/09/2024 8:20 AM [facility] LAB CO2 22 21 - 32 mmol/L LAB CHEMISTRY METHOD 06/09/2024 8:20 AM [facility] Anion Gap 9 3 - 11 LAB CHEMISTRY METHOD 06/09/2024 8:20 AM [facility] LAB Glucose 74 70 - 100 mg/dL LAB CHEMISTRY METHOD 06/09/2024 8:20 AM [facility] BUN 14 5 - 25 mg/dL LAB CHEMISTRY METHOD 06/09/2024 8:20 AM [facility] LAB Creatinine 0.65 0.50 - 1.10 mg/dL LAB CHEMISTRY METHOD 06/09/2024 8:20 AM [facility] LAB eGFR 105 >=60 mL/min/1. 73m2 LAB CHEMISTRY METHOD 06/09/2024 8:20 AM [facility] LAB Comment:Calculation based on the Chronic Kidney Disease Epidemiology Collaboration (CKD-EPI) equation refit without adjustment for race. BUN/Creatinine Ratio 21.5 LAB CHEMISTRY METHOD 06/09/2024 8:20 AM [facility] Calcium 9.0 8.5 - 10.5 mg/dL LAB CHEMISTRY METHOD 06/09/2024 8:20 AM [facility] Blood Venous blood specimen / Unknown Venipuncture / Unknown 06/09/2024 6:00 AM EST 06/09/2024 7:30 AM EST us Braydon Sykes MD LAB BLOOD ORDERABLES Final Res ult [facility] [address] [place] [address], documented in this encounter Visit Diagnoses Diagnosis Encounter for other general examination documented in this encounter Care Teams Medical Anthropology Director Relationship Specialty Start Date End Date Braydon Sykes MD [address] [place] [id number] PCP - General Internal Medicine 06/03/24 documented as of this encounter
--- OUTSIDE RECORDS SUMMARY | 2025-01-21 13:47 | XMS_ITS | Encounter Summary ---
Author Organization [facility] Address [address] [place] [address] Care Team Providers Care Portal Administrator Name Role Phone Braydon Sykes MD Primary Care Provider [phone] Encounter Details Date Type Department Care Team (Late st Contact Info) Description 06/03/2024 Lab Requisition [facility] - Main Lab [address] [facility] [place] [address] Braydon Sykes MD [address] [place] [id number] Encounter for other general examination Social History [...] AM EST) WBC 5.6 4.8 - 10.8 K/[facility] LAB HEMETOLOGY METHOD 06/03/2024 11:[address] [facility] LAB RBC 4.80 3.80 - 4.80 M/[facility] LAB HEMETOLOGY METHOD 06/03/2024 11:[address] [...] HOSPITAL LAB Platelets 199 130 - 400 K/[facility] LAB HEMETOLOGY METHOD 06/03/2024 11:[address] [facility] LAB MPV 10.8 7.0 - 11.0 FL LAB HEMETOLOGY METHOD 06/03/2024 11:[address] [facility] LAB NRBC 0.0 <1.0 % LAB HEMETOLOGY METHOD 06/03/2024 11:[address] [facility] LAB NRBC Absolute 0.00 <0.10 K/[facility] LAB HEMETOLOGY METHOD 06/03/2024 11:[address] [...] Final Res ult Performing Organization Address [facility]/ZIP Co de Phone Number [facility] [address] [place] [address], [place] [phone] * Magnesium (06/03/2024 6:18 AM EST) Pathologist [facility] Magnesium 2.3 1.9 - 2.6 mg/dL LAB CHEMISTRY METHOD 06/03/2024 11:[address] [facility] Blood Venous blood specimen / Unknown Venipuncture / Unknown 06/03/2024 6:18 AM EST 06/03/2024 10:27 AM EST Braydon Sykes MD LAB BLOOD ORDERABLES Final Res ult Performing Organization Address [facility]/ZIP Co de Phone Number [facility] [address] [place] [address], [place] [phone] * (ABNORMAL) Comprehensive metabolic panel (06/03/2024 6:18 AM EST) [facility] Sodium 136 133 - 145 mmol/L [...] Res ult [facility] [address] [place] [address], documented in this encounter Visit Diagnoses Diagnosis Encounter for other general examination documented in this encounter Care Teams Portal Administrator Relationship Specialty Start Date End Date Braydon Sykes MD [address] [place] [id number] PCP - General Internal Medicine 06/03/24 documented as of this encounter
--- OUTSIDE RECORDS SUMMARY | 2025-01-21 13:47 | XMS_ITS | Clinical Summary ---
Author Organization [address] [facility] Address [address] [place] [address] Phone Care Team Providers Care Behavioral Health Therapist Name Role Phone Braydon Sykes MD Primary Care Provider [phone] Social History Tobacco Use Types Packs/Day Years [...] topic Insurance MEDICAID - [place] Care Teams Behavioral Health Therapist Relationship Specialty Start Date End Date Braydon Sykes MD [address] [place] [phone] PCP - General Internal Medicine 06/03/24
--- NOTE | 2025-01-21 14:12 | ED_ITS ---
HPI - General Adult General Chief complaint: Nausea/Vomiting/Diarrhea Stated complaint: FEELING UNWELL LAST 3 DAYS Time Seen by Provider: 01/21/25 14:08 Source: patient Mode of arrival: ambulatory Limitations: no limitations History of Present Illness ED Provider: Dr. Jean Thompson HPI narrative: 55-year-old female with a history of morbid obesity, eosinophilic asthma, PFO, hypertension, seizures, hypothyroidism, diverticulitis, GERD who presents emergency department for evaluation of cough, shortness of breath, subjective fever and chill x1 week with nausea, vomiting and diarrhea 1 days. Patient states that 2 weeks prior she had a sinus infection but did not get treated with antibiotics. The patient states she developed a persistent, hard cough for about 1 week prior. She states when she coughs she feels like she is going to pass out and she had 2 syncopal episodes after cough for (on 01/15/2025 and 01/16/2025). She was seen on 01/17/2025 by her PCP, Dr. Jose D Tay. She was started on azithromycin, prednisone and Mucinex.The patient states she only took 2 days of azithromycin and prednisone since these medications were making her feel ill. She was also seen in the walk-in clinic on 01/20/2025 and had a viral panel which was positive for rhino virus only. Patient states today she developed at least 4 episodes of vomiting and explosive diarrhea which she describes as too many stools to count. She did not see any blood in the emesis or diarrhea. Related Data Home Medications ?Medication ?Instructions ?Recorded ?Confirmed acetaminophen 500 mg tablet 1,000 mg PO Q6H PRN Pain 0 05/29/24 01/17/25 albuterol sulfate 90 mcg/actuation 2 puff inhalation Q 4H PRN 05/29/24 01/17/25 aerosol inhaler (Ventolin HFA) Shortness Of Breath Or Wheezing bupropion HCl 150 mg tablet,12 hr 150 mg PO BID@0800,1 200 05/29/24 01/17/25 sustained-release lidocaine 4 % topical patch 1 patch topical DAILY PRN Pain 05/29/24 01/17/25 duloxetine 30 mg capsule,delayed mg PO .once at PM 01/17/25 release aspirin 81 mg tablet 81 mg PO DAILY 11/22/2412/27 duloxetine 20 mg capsule,delayed 20 mg PO DAILY 01/17/25 release lorazepam 1 mg tablet 1 mg PO DAILY PRN 11/22/24 0 01/17/25 Previous Rx's ?Medication ?Instructions ?Recorded oxcarbazepine 150 mg tablet 150 mg PO BID #6 tabs 01/26 11/17 fall detection monitor #1 ea 07/08/24 Blood pressure monitor #1 ea 07/13/24 cyclobenzaprine 5 mg tablet 5 mg PO ONCE PRN left scia torsten 10/11/24 pain #90 tabs fluticasone propionate 50 2 spray intranasal BID 90 da ys #16 10/11/24 mcg/actuation nasal grams spray,suspension (Flonase Allergy Relief) lisinopril 5 mg tablet 5 mg PO DAILY #90 tabs 10/11 loratadine 10 mg tablet 10 mg PO DAILY 30 days #30 t abs 10/11/24 montelukast 10 mg tablet 10 mg PO DAILY #90 tabs 09/25 11/18 ipratropium 0.5 mg-albuterol 3 mg 3 ml inhalation Q4-6 H PRN wheezing 10/12/24 (2.5 mg base)/3 mL nebulization 30 days #270 mL soln celecoxib 200 mg capsule 200 mg PO DAILY #90 caps 11/18 topiramate 25 mg tablet 25 mg PO BID #60 tabs fluticasone propionate 230 2 puff inhalation Q12H #12 grams 11/21/24 mcg-salmeterol 21 mcg/actuation HFA inhaler (Advair HFA) famotidine 40 mg tablet (Pepcid) 40 mg PO BEDTIME #30 tabs 11/22/24 simethicone 180 mg capsule 180 mg PO QID 30 days #300 caps 11/22/24 dexlansoprazole 60 mg 60 mg PO DAILY #90 caps 12/19 capsule,biphase delayed release (Dexilant) dupilumab 300 mg/2 mL subcutaneous 300 mg (2 mL) subcu t Q2W 28 days 12/02/24 pen injector (Dupixent) #4 mL azithromycin 250 mg tablet 250 mg PO ONCE 5 days #6 ta bs 01/17/25 prednisone 20 mg tablet 20 mg PO DAILY 7 days #7 tab s 01/17/25 levothyroxine 150 mcg tablet 150 mcg PO QAM 90 days #9 0 tabs 01/18/25 benzonatate 200 mg capsule 200 mg PO BEDTIME PRN cough #10 01/20/25 caps Allergies Allergy/AdvReac Type Severity Reaction Status Date / Time niacin (Niaspan Allergy Intermediate skin Verified 01/21/25 13:02 Extended-Release) blisters tramadol Allergy Intermediate seizures Verified 01/21/25 13:02 barley (BARLEY) Allergy Unknown UNKNOWN Verified 01/21/25 13:02 fluticasone (Advair Diskus) Allergy Unknown Shortness Verified 01/21/25 13:02 of Breath ibuprofen Allergy Unknown Swelling Verified 01/21/25 13:02 naratriptan Allergy Unknown unknown Verified 01/21/25 13:02 Penicillins (PENICILLINS) Allergy Unknown Unknown Verified 01/21/25 13:02 sumatriptan Allergy Unknown unknown Verified 01/21/25 13:02 trazodone (TRAZODONE) Allergy Unknown UNKNOWN Verified 01/21/25 13:02 omalizumab (From Xolair) AdvReac Severe Anaphylaxis Verified 01/21/25 13:02 rubber, unspecified AdvReac Severe Unknown Verified 01/21/25 13:02 equate cough drops sugar free Allergy Mild Unknown Uncoded 01/21/25 13:02 silicone AdvReac Severe Unknown Uncoded 01/21/25 13:02 vaseline AdvReac Severe hives Uncoded 01/21/25 13:02 Review of Systems 2 Review of Systems: Yes all other systems are reviewed and are negative [facility] Past Medical History [facility] Narrative: Social history: She denied tobacco and alcohol use. She uses CBD gummies for insomnia. Medical History (Updated 01/21/25 @ 20:20 by Popeye Anna MD) Colon cancer screening Hospital discharge follow-up Other specified hypothyroidism Left sided abdominal pain Influenza A H1N1 infection Stool incontinence Shoulder pain Anemia Bronchitis due to COVID-19 virus COVID Acute pneumonia Work related injury Acute diarrhea Paresthesias in left hand Dysuria PFO (patent foramen ovale) Shortness of breath Community acquired pneumonia Chronic idiopathic constipation Pre-op examination Encounter for routine gynecological examination LFT elevation Encounter for general adult medical examination with abnormal findings Respiratory tract congestion with cough Hospital discharge follow-up COVID-19 Tracheobronchitis COVID-19 Iron deficiency anemia Shoulder pain, right Nausea and vomiting PFO (patent foramen ovale) History of transesophageal echocardiography (LAN) Colitis Abnormal angiogram of head COVID-19 Asthma Thyroid disease GERD (gastroesophageal reflux disease) Anemia Aneurysm Surgical History History of surgery of uterus H/O endoscopy History of H/O brain surgery History of colonoscopy Family History Family History Father Diabetes Arthritis Diverticulitis Leukemia Mental health disorder Lung cancer Mother Anemia Arthritis Colon polyps Myocardial infarction Brother Crohn's disease Testicular cancer Brother Cancer Paternal Grandfather Leukemia Other Substance use disorder Social History Social History Household Members: Spouse and Children Household Members Other:: boyfriend and his son Housing: House Are you a primary health care liaison to a significant other at home: No Do you presently have visiting nurse or other home services: No Alcohol intake: former Patient Tobacco Use Status: Former Tobacco user Tobacco use type: Cigarette Cigarettes Per Day: 10 Smoked in Last 30 Days: No e-Cigarette/Vaping Use: Never Used Second Hand Smoke Exposure: No Use of substances other than those prescribed or required for medical reasons: Yes Substance Use Type: Marijuana Substance Use Frequency: Occasionally Currently Displaying Signs/Symptoms of Drug Intoxication Withdrawal: No Have you been hit, kicked, punched, or otherwise hurt by someone within the past year? If so, by whom?: No Do you feel safe in your current relationship?: Yes Is there a partner from a previous relationship who is making you feel unsafe now?: No Are you made to feel afraid or neglected: No Advance Directives: Yes Advance Directives on File: Yes Advance Directives Date on File: 04/09/21 Do you have a plan to hurt others: No Plan Recently lost weight without trying: No Eating poorly because of decreased appetite: Yes Nutrition Risks: Poor intake 0-25% >4 days Patient : No : No Poor oral hygiene: No service: No 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al status: employed 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: [employer]/ right hand dominant Cognitive needs: No Hearing needs: No Vision needs: Yes Physical Exam ED Vital Signs: Vital Signs - 24 hr 01/21/25 13:00 01/21/25 13:14 01/21/25 14:40 Temperature 98.4 F 98.4 F 97.7 F Pulse Rate 102 H 102 H 94 Respiratory Rate 18 18 16 Blood Pressure 89/57 L 89/57 L 83/49 L Pulse Oximetry 97 97 96 Oxygen Delivery Method Room Air Room Air Room Air 01/21/25 15:53 01/21/25 16:42 01/21/25 17:21 Temperature 98.0 F 98.1 F 98.1 F Pulse Rate 88 79 79 Respiratory Rate 18 19 18 Blood Pressure 116/63 111/63 131/77 Pulse Oximetry 97 96 97 Oxygen Delivery Method Room Air Room Air Room Air 01/21/25 17:22 01/21/25 17:23 Temperature 97.9 F 98.1 F Pulse Rate 79 79 Respiratory Rate 18 18 Blood Pressure 115/61 115/61 Pulse Oximetry 98 98 Oxygen Delivery Method Room Air Room Air BMI result Body Mass Index 36.3 Vital signs revealed an elevated pulse of 102, low blood pressure 89/57 Exam: General: Awake, alert in no distress Head: Normocephalic, atraumatic EENT: PERRL, sclera and conjunctiva are normal, mouth with no erythema or exudates Neck: Supple, no adenopathy Lung: breath sounds symmetric, no wheezing, no rales and no rhonchi Chest: symmetric movement, nontender Heart: regular rate and rhythm, normal S1, S2 no murmurs or rubs Abdomen: soft, mild diffuse tenderness, mild to moderate left-sided tenderness, nondistended, normal bowel sounds Back: no vertebral tenderness, no CVAT Extremities: no deformities, moves all extremities symmetrically, no edema Neuro: Awake, alert, oriented, normal speech, cranial nerves 2-12 intact, moves all extremities symmetrically Psych: Pleasant, cooperative Medications Administered Generic Name Dose Route Start Last Admin Trade Name Freq PRN Reason Stop Dose Admin Benzonatate 100 mg 01/21/25 22:43 01/21/25 22:56 Benzonatate 100 Mg Capsule PO 100 mg TID PRN Administration Cough Calcium Carbonate 750 mg 01/21/25 18:13 01/21/25 22:16 Calcium Carbonate 750 Mg Tab.Chew PO 750 mg Q4H PRN Administration Heartburn Enoxaparin Sodium 40 mg 01/21/25 18:15 01/21/25 19:37 Enoxaparin Sodium 40 Mg/0.4 Ml Syringe SUBCUT 40 mg Q24H MATTHEW Administration Dextrose/Sodium Chloride 1,000 mls @ 100 mls/hr 01/21/25 18:15 01/22/25 04:24 D51/2ns IVCONT 100 mls/hr .Q10H MATTHEW Administration Metronidazole 500 mg in 100 mls @ 100 mls/hr 01/21/25 18:15 01/22/25 02:56 Flagyl IV Infused Q8H MATTHEW Infusion Melatonin 6 mg 01/21/25 18:13 01/21/25 22:11 Melatonin 3 Mg Tablet PO 6 mg BEDTIME PRN Administration Insomnia Methylprednisolone Sodium Succinate 40 mg 01/21/25 21:00 01/22/25 04:24 Methylprednisolone Sod Succ 40 Mg/Ml Vial IVPUSH 40 mg Q8H MATTHEW Administration Sodium Chloride 3 ml 01/22/25 00:00 01/21/25 22:58 0.9 % Sodium Chloride Flush 3 Ml Syringe IVFLUSH 3 ml QSHIFT AMTTHEW Administration Topiramate 25 mg 01/21/25 21:00 01/21/25 20:36 Topiramate 25 Mg Tablet PO 25 mg BID MATTHEW Administration Discontinued Medications Generic Name Dose Route Start Last Admin Trade Name Freq PRN Reason Stop Dose Admin Sodium Chloride 1,000 mls @ 999 mls/hr 01/21/25 14:12 01/21/25 15:37 Ns IV 01/21/25 15:12 Infused .Q1H1M STA Infusion Sodium Chloride 1,917 mls @ 1,917 mls/hr 01/21/25 15:18 01/21/25 16:51 Ns IV 01/21/25 16:17 Infused .Q1H STA Infusion Doxycycline Hyclate 100 mg/ 250 mls @ 166.67 mls/hr 01/21/25 15:35 01/21/25 18:12 Sodium Chloride IV 01/21/25 17:04 Infused ONCE ONE Infusion Cefepime HCl 2 gm in 50 mls @ 100 mls/hr 01/21/25 15:36 01/21/25 16:25 Maxipime IV 01/21/25 16:05 Infused ONCE ONE Infusion Iohexol 100 ml 01/21/25 15:36 01/21/25 15:38 Iohexol 350 Mg/Ml 100 Ml Infus..Btl IV 01/21/25 15:37 100 ml ONCE ONE Administration Ketorolac Tromethamine 15 mg 01/21/25 14:40 01/21/25 15:06 Ketorolac Tromethamine 15 Mg/Ml Vial IVPUSH 01/21/25 14:41 15 mg ONCE ONE Administration Lorazepam 0.5 mg 01/21/25 22:37 01/21/25 22:56 Lorazepam 0.5 Mg Tablet PO 01/21/25 22:38 0.5 mg ONCE ONE Administration Ondansetron HCl 4 mg 01/21/25 14:40 01/21/25 15:06 Ondansetron Hcl 4 Mg/2 Ml Vial IVPUSH 01/21/25 14:41 4 mg ONCE ONE Administration Medical Decision Making Medical Decision Making [facility] Narrative: 55-year-old female with a history of morbid obesity, eosinophilic asthma, PFO, hypertension, seizures, hypothyroidism, diverticulitis, GERD who presents emergency department for evaluation of cough, shortness of breath, subjective fever and chill x1 week with nausea, vomiting and diarrhea 1 days. Patient states that 2 weeks prior she had a sinus infection but did not get treated with antibiotics. The patient states she developed a persistent, hard cough for about 1 week prior. She states when she coughs she feels like she is going to pass out and she had 2 syncopal episodes after cough for (on 01/15/2025 and 01/16/2025). She was seen on 01/17/2025 by her PCP, Dr. Jose D Tay. She was started on azithromycin, prednisone and Mucinex.The patient states she only took 2 days of azithromycin and prednisone since these medications were making her feel ill. She was also seen in the walk-in clinic on 01/20/2025 and had a viral panel which was positive for rhino virus only. Patient states today she developed at least 4 episodes of vomiting and explosive diarrhea which she describes as too many stools to count. She did not see any blood in the emesis or diarrhea. Vital signs revealed elevated heart rate of 102, low blood pressure of 89/57. Exam was otherwise unremarkable. 15:28 Differential diagnosis: ?Includes but is not limited to dehydration, volume depletion, viral syndrome, pneumonia, intra-abdominal infection, clustered a difficile colitis, pulmonary embolism, myocardial infarction, myocardial ischemia, vasovagal syncope, adverse drug reaction to azithromycin, anemia, electrolyte abnormalities Course: 15:37 Patient's lactic acid was elevated 2.5 therefore I made the patient a code sepsis. My interpretation patient's laboratory evaluation is as follows WBC elevated 30,900 with 87 neutrophils, 1 band, 6 lymphocytes. H&H was normal 15.74 and 46.4. Sodium low 132. Bicarb low 16. Glucose elevated 174. Alk-phos elevated 161. Troponin elevated at 19.0 repeat due at 16:10 hours. Lactic acid pending Chest x-ray did not reveal any obvious infiltrates possible that she may have a right-sided infiltrate compared to the previous x-ray. The patient did test positive for rhino virus but I do not think this is the cause of her elevated WBC, diarrhea and low blood pressure. I suspect that the low blood pressures due to severe diarrhea and volume depletion and not sepsis. I did order a CT angiogram PE protocol to evaluate for PE versus pneumonia and CT abdomen pelvis with IV contrast to evaluate for an abdominal source for her infections. Patient has a penicillin allergy. Therefore I ordered cefepime 2 g IV and doxycycline 100 mg IV. The patient is obese with a BMI of 36.3 therefore I ordered a 30 cc/kilogram normal saline bolus based on her ideal body weight. 16:53 At the end of my shift, the patient's CT scans are pending therefore the patient's care was turned over to my colleague, Dr. Bruce. Differential Diagnosis Differential Diagnoses: The differential diagnosis associated with the presentation includes (See above) Admission/Observation Consideration of admission/observation: Escalation of care including admission/observation considered (Yes) Lab Data MDM Lab Attestation statement: I reviewed the patient's lab results. 01/22/25 06:44 01/22/25 06:44 Labs: Lab Results 01/21/25 01/21/25 01/21/25 Range/Units 14:10 14:57 16:26 WBC 30.9 H* (4.8-10.8) X10*3/uL RBC 5.71 H D (4.20-5.50) X10*6/uL Hgb 15.7 D (12.0-16.0) g/dl Hct 46.4 D (37.0-47.0) % MCV 81.3 (80.0-98.0) fL MCH 27.5 (27.0-33.0) pg MCHC 33.8 (31.0-35.0) g/dl RDW 13.7 (11.0-16.0) % Plt Count 397 D (160-400) X10*3/uL MPV 9.7 (9.4-12.3) fL Immature Gran % (Auto) Cancelled Neut % (Auto) Cancelled Lymph % (Auto) Cancelled [place] % (Auto) Cancelled Eos % (Auto) Cancelled Baso % (Auto) Cancelled Lymph # (Auto) Cancelled [place] # (Auto) Cancelled Eos # (Auto) Cancelled Baso # (Auto) Cancelled Abs Immat Gran (auto) Cancelled Absolute Neuts (auto) Cancelled Absolute Nucleated RBC 0.000 (0.0-0.012) X10*3/uL Nucleated RBC % (auto) 0.0 (0.0-0.2) /100WBC Neutrophils % (Manual) 87 H (45-73) % Band Neutrophils % 1 L (3-5) % Lymphocytes % (Manual) 6 L (20-40) % Monocytes % (Manual) 5 (2-11) % Eosinophils % (Manual) 1 (0-4) % Abs Neuts (Manual) 27.2 H (2.0-8.3) X10*3/uL Lymphocytes # (Manual) 1.9 (1.2-4.9) X10*3/uL Monocytes # (Manual) 1.5 H (0.1-1.2) X10*3/uL Eosinophils # (Manual) 0.3 (0.0-0.4) X10*3/uL Platelet Estimate NORMAL (NORMAL) Plt Morphology Comment NORMAL RBC Morphology NORMAL Smear Tech's Comments MANUAL DIFF Sodium 132 L (135-145) mmol/L Potassium 3.8 (3.3-5.1) mmol/L Chloride 105 (96-108) mmol/L Carbon Dioxide 16 L (22-29) mmol/L Anion Gap 15 (12-20) BUN 13 (9-16) mg/dL Creatinine 1.24 (0.5-1.4) mg/dL Estim Creat Clear Calc 66.8 Estimated GFR 45 Random Glucose 175 H (60-115) mg/dL Lactic Acid 2.5 H* 2.5 H* (0.5-2.0) mmol/L Calcium 9.0 (8.4-10.2) mg/dL Magnesium 2.4 (1.6-2.6) mg/dL Total Bilirubin 0.5 (0.0-1.0) mg/dL AST 30 (5-31) U/L ALT 26 (0-31) U/L Alkaline Phosphatase 161 H (39-117) U/L Troponin I High Sens 19.0 H D 32.8 H D (<3.5-17.0) ng/L Total Protein 6.6 (6.5-8.0) g/dL Albumin 4.1 (3.5-5.0) g/dL COVID-19 (BESS) Negative (Negative) COVID-19 Clin Com See Note Influenza Type A (GABBY) Negative (Negative) Influenza Type B (GABBY) Negative (Negative) Influenza A & B Note See Note Independent Interpretation I performed an independent interpretation of an: EKG Interpretation: My independent interpretation patient's 12 EKG done on 01/21/2025 at 13:44 hours is as follows: Sinus rhythm rate of 95, normal SD interval, QRS duration QTC interval, inverted T-waves in lead 3, no ST segment elevation, no ST segment depression, no PACs, no PVCs. Compared to EKG dated 05/29/2024 inverted T-wave in lead 3 is old, no significant change. My independent interpretation patient's one-view chest x-ray is as follows: Possible right-sided infiltrate subtle change compared to previous chest x-ray on 01/20/2025 External Record Review External record reviewed: Office record and Outpatient record Chronic Conditions Patient?s care impacted by: Hypertension and Other (Hypothyroidism, eosinophilic asthma) Critical Care Time Critical Care Time Critical Care Time: Yes Total Critical Care Time: 45 Attestation: Critical Care: The patient was critically ill with a high probability of imminent or life threatening deterioration. I spent greater than 30 minutes of discontinuous time evaluating the patient,delivering critical care at the bedside, discussing and evaluating pertinent data with consultants. Critical care time does not include time spent performing separately billable procedures or teaching. Total time spent performing critical care was 45 minutes. Discharge Plan Discharge Clinical Impression: Leukocytosis, Cough, Syncope, Volume depletion, Diarrhea Patient Disposition: Admitted As Inpatient Interventions: Admission Worksheet (ED) Last Done: 01/21/25 21:07 Discharge Date/Time: 01/21/25 21:49
--- NOTE | 2025-01-21 14:17 | PC.NURSE ---
Patient presents to Ed c/o N/V/D Symptoms started about a week ago with a dry cough but now she is having N/V/D Patient reported being in contact with sick family Reports subjective fevers, temp 98.2 in ED Patient hard stick Assiting nurse placed US IV right forearm 20G BP soft 83/49, notified provider IVF ordered and currently infusing Provider in to see patient Plan of care on going
[2025-01-21 14:25] LABS: Hematocrit 46.4 % (37.0-47.0); Hemoglobin 15.7 g/dl (12.0-16.0); Mean Corpuscular HGB Conc 33.8 g/dl (31.0-35.0); Mean Corpuscular Hemoglobin 27.5 pg (27.0-33.0); Mean Corpuscular Volume 81.3 fL (80.0-98.0); NRBC Abs Auto 0.000 X10*3/uL (0.0-0.012); NRBC Pct Auto 0.0 /100WBC (0.0-0.2); Platelet Count 397 X10*3/uL (160-400); Red Blood Count 5.71 X10*6/uL (4.20-5.50)
[2025-01-21 14:39] LABS: Alanine Aminotransferase 26 U/L (0-31); Albumin Level 4.1 g/dL (3.5-5.0); Alkaline Phosphatase 161 U/L (39-117); Anion Gap 15 (12-20); Aspartate Amino Transferase 30 U/L (5-31); Blood Urea Nitrogen 13 mg/dL (9-16); Calcium 9.0 mg/dL (8.4-10.2); Carbon Dioxide 16 mmol/L (22-29); Chloride 105 mmol/L (96-108); Creatinine Clr Calc Pharmacy 66.8; Estimated Glomerular Filt Rate 45; Magnesium 2.4 mg/dL (1.6-2.6); Potassium 3.8 mmol/L (3.3-5.1); Sodium 132 mmol/L (135-145); Total Protein 6.6 g/dL (6.5-8.0)
[2025-01-21 14:41] LABS: White Blood Count 30.9 X10*3/uL (4.8-10.8)
[2025-01-21 14:47] LABS: Troponin-I High Sensitivity 19.0 ng/L (<3.5-17.0)
[2025-01-21 14:49] LABS: Band Neutrophils Percent 1 % (3-5); Eosinophils Absolute Manual 0.3 X10*3/uL (0.0-0.4); Eosinophils Percent Manual 1 % (0-4); IDNOW Serial# 55D5AD1C; IDNOW Serial# 58CA691E; Influenza B2 Negative (Negative); Lymphocytes Absolute Manual 1.9 X10*3/uL (1.2-4.9); Lymphocytes Percent Manual 6 % (20-40); Monocytes Absolute Manual 1.5 X10*3/uL (0.1-1.2); Monocytes Percent Manual 5 % (2-11); Neutrophils Absolute Manual 27.2 X10*3/uL (2.0-8.3); Neutrophils Percent Manual 87 % (45-73); RBC Morphology NORMAL
[2025-01-21 14:50] LABS: COVID-19 Test Negative (Negative)
[2025-01-21] MEDS: iohexoL 350 MG/ML 100 ML INFUS..BTL IV (15:38)
[2025-01-21] MEDS: 0.9 % Sodium Chloride 1,917 ML 1917 ML IV (15:48)
[2025-01-21] MEDS: cefEPime HCl/D5W 2 GM/50 ML PIGGYBACK IV (15:49)
[2025-01-21 16:57] LABS: Troponin-I High Sensitivity 32.8 ng/L (<3.5-17.0)
[2025-01-21 17:03] LABS: Reflex Lactate? Lactic Acid Added
--- NOTE | 2025-01-21 18:17 | PM.IMHP ---
History of Present Illness Date of Service: 01/21/25 Chief Complaint: diarrhea 55-year-old female with a past medical history of history of HLD, eosinophilic asthma, PFO, complex migraine, epilepsy, anxiety, depression, PTSD, anemia, chronic idiopathic constipation, vertigo, right shoulder impingement GERD, hypothyroidism; presented to the hospital today with a chief complaint of not feeling well. Patient reports that over the past week to 10 days she has been not feeling well; has been having sinus infection which slowly cleared up; she went to a birthday alliance party and was exposed to the kids with infection; followed by she started developed more cough and sputum production. Reports he is having severe cough spells to the point that she syncopized at least x2. Her PCP also given her antibiotics along with prednisone which she took it for a couple days. And today she had severe diarrhea hence presented to the ER for further evaluation. Also reports abdominal pain. For the past few days she also reported having shortness of breath and dyspnea on exertion with wheezing. Denies any chest pain or palpitations. Denies any nausea or vomiting. Review of all other systems is negative except mentioned above ER course: Per ER team, patient on presentation noted to be short of breath and wheezing; also reported abdominal pain; CT abdomen pelvis showed findings concerning for colitis. EKG was nonischemic. Troponins were slightly elevated. Given multiple episodes of diarrhea with significant white count concern for possible C diff. [facility] Medical History (Updated 01/21/25 @ 20:20 by Popeye Anna MD) Colon cancer screening Hospital discharge follow-up Other specified hypothyroidism Left sided abdominal pain Influenza A H1N1 infection Stool incontinence Shoulder pain Anemia Bronchitis due to COVID-19 virus COVID Acute pneumonia Work related injury Acute diarrhea Paresthesias in left hand Dysuria PFO (patent foramen ovale) Shortness of breath Community acquired pneumonia Chronic idiopathic constipation Pre-op examination Encounter for routine gynecological examination LFT elevation Encounter for general adult medical examination with abnormal findings Respiratory tract congestion with cough Hospital discharge follow-up COVID-19 Tracheobronchitis COVID-19 Iron deficiency anemia Shoulder pain, right Nausea and vomiting PFO (patent foramen ovale) History of transesophageal echocardiography (LAN) Colitis Abnormal angiogram of head COVID-19 Asthma Thyroid disease GERD (gastroesophageal reflux disease) Anemia Aneurysm Family History Father Diabetes Arthritis Diverticulitis Leukemia Mental health disorder Lung cancer Mother Anemia Arthritis Colon polyps Myocardial infarction Brother Crohn's disease Testicular cancer Brother Cancer Paternal Grandfather Leukemia Other Substance use disorder Surgical History History of surgery of uterus H/O endoscopy History of H/O brain surgery History of colonoscopy Social History Household Members: Spouse and Children Housing: House Are you a primary resident care aid to a significant other at home: No Do you presently have visiting nurse or other home services: No Alcohol intake: former Patient Tobacco Use Status: Former Tobacco user Tobacco use type: Cigarette Cigarettes Per Day: 10 Smoked in Last 30 Days: No e-Cigarette/Vaping Use: Never Used Second Hand Smoke Exposure: No Use of substances other than those prescribed or required for medical reasons: Yes Substance Use Type: Marijuana Substance Use Frequency: Occasionally Advance Directives: Yes Advance Directives on File: Yes Advance Directives Date on File: 04/09/21 Do you have a plan to hurt others: No Plan Nutrition Risks: No Nutritional Risk Patient : No service: No 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al status: employed 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: [employer]/ right hand dominant Cognitive needs: No Hearing needs: No Vision needs: Yes Meds Allergies Allergy/AdvReac Type Severity Reaction Status Date / Time niacin (Niaspan Allergy Intermediate skin Verified 01/21/25 13:02 Extended-Release) blisters tramadol Allergy Intermediate seizures Verified 01/21/25 13:02 barley (BARLEY) Allergy Unknown UNKNOWN Verified 01/21/25 13:02 fluticasone (Advair Diskus) Allergy Unknown Shortness Verified 01/21/25 13:02 of Breath ibuprofen Allergy Unknown Swelling Verified 01/21/25 13:02 naratriptan Allergy Unknown unknown Verified 01/21/25 13:02 Penicillins (PENICILLINS) Allergy Unknown Unknown Verified 01/21/25 13:02 sumatriptan Allergy Unknown unknown Verified 01/21/25 13:02 trazodone (TRAZODONE) Allergy Unknown UNKNOWN Verified 01/21/25 13:02 omalizumab (From Xolair) AdvReac Severe Anaphylaxis Verified 01/21/25 13:02 rubber, unspecified AdvReac Severe Unknown Verified 01/21/25 13:02 equate cough drops sugar free Allergy Mild Unknown Uncoded 01/21/25 13:02 silicone AdvReac Severe Unknown Uncoded 01/21/25 13:02 vaseline AdvReac Severe hives Uncoded 01/21/25 13:02 Active Medications: Current Medications Acetaminophen (Acetaminophen 325 Mg Tablet) 650 mg PO Q6H PRN PRN Reason: Pain, Mild 1-3,fever,headache Albuterol/Ipratropium (Albuterol/Iprat 2.5/0.5mg 3 Ml Ampul.Neb) 3 ml INHALE RQ4H WHILE AWAKE PRN PRN Reason: Shortness of Breath Calcium Carbonate (Calcium Carbonate 750 Mg Tab.Chew) 750 mg PO Q4H PRN PRN Reason: Heartburn Ceftriaxone Sodium (Ceftriaxone Sodium 1 Gm Vial) 1 gm IVPUSH Q24H [facility] Enoxaparin Sodium (Enoxaparin Sodium 40 Mg/0.4 Ml Syringe) 40 mg SUBCUT Q24H [facility] Dextrose/Sodium Chloride (D51/2ns) 1,000 mls @ 100 mls/hr IVCONT .Q10H [facility] Metronidazole (Flagyl) 500 mg in 100 mls @ 100 mls/hr IV Q8H [facility] Magnesium Hydroxide (Milk Of Magnesia 30 Ml Oral.Susp) 30 ml PO DAILY PRN PRN Reason: Constipation Melatonin (Melatonin 3 Mg Tablet) 6 mg PO BEDTIME PRN PRN Reason: Insomnia Sodium Chloride (0.9 % Sodium Chloride Flush 3 Ml Syringe) 3 ml IVFLUSH QSHIFT [facility] Topiramate (Topiramate 25 Mg Tablet) 25 mg PO BID [facility] Home Medications ?Medication ?Instructions ?Recorded ?Confirmed ?Last Taken ?Type acetaminophen 500 mg tablet 1,000 mg PO Q6H PRN Pain 05/29/24 01/17/25 Unknown History albuterol sulfate 90 mcg/actuation 2 puff inhalation Q4H PRN 05/29/24 01/17/25 Unknown History aerosol inhaler (Ventolin HFA) Shortness Of Breath Or Wheezing bupropion HCl 150 mg tablet,12 hr 150 mg PO BID@0800,1200 05/29/24 01/17/25 Unknown History sustained-release lidocaine 4 % topical patch 1 patch topical DAILY PRN Pain 05/29/24 01/17/25 Unknown History duloxetine 30 mg capsule,delayed mg PO .once at PM 06/16/24 01/17/25 Unknown History release aspirin 81 mg tablet 81 mg PO DAILY 11/22/24 01/17/25 Unknown History duloxetine 20 mg capsule,delayed 20 mg PO DAILY 11/22/24 01/17/25 Unknown History release lorazepam 1 mg tablet 1 mg PO DAILY PRN 11/22/24 01/17/25 Unknown History Physical Exam Vital Signs and Narrative: Vital Signs: Last Vital Signs Temp 98.1 F 01/21/25 17:23 Pulse 79 01/21/25 17:23 Resp 18 01/21/25 17:23 BP 115/61 01/21/25 17:23 Pulse Ox 98 01/21/25 17:23 O2 Del Method Room Air 01/21/25 17:23 BMI result Body Mass Index 36.3 Gen: Appears be in no acute distress HEENT: NCAT, Moist mucosa. Pulmonary: Coarse breath sounds CVS: Normal S1-S2 Abdomen: BS+, Soft, Nontender Extremities: Warm well perfused Neuro: Alert and awake. Results Labs 01/21/25 14:10 01/21/25 14:10 Labs: Laboratory Results - last 24 hr 01/21/25 01/21/25 01/21/25 14:10 14:57 16:26 MCV 81.3 MCH 27.5 MCHC 33.8 RDW 13.7 Plt Count 397 D MPV 9.7 Immature Gran % (Auto) Cancelled Neut % (Auto) Cancelled Lymph % (Auto) Cancelled [place] % (Auto) Cancelled Eos % (Auto) Cancelled Baso % (Auto) Cancelled Lymph # (Auto) Cancelled [place] # (Auto) Cancelled Eos # (Auto) Cancelled Baso # (Auto) Cancelled Abs Immat Gran (auto) Cancelled Absolute Neuts (auto) Cancelled Absolute Nucleated RBC 0.000 Nucleated RBC % (auto) 0.0 Neutrophils % (Manual) 87 H Band Neutrophils % 1 L Lymphocytes % (Manual) 6 L Monocytes % (Manual) 5 Eosinophils % (Manual) 1 Abs Neuts (Manual) 27.2 H Lymphocytes # (Manual) 1.9 Monocytes # (Manual) 1.5 H Eosinophils # (Manual) 0.3 Platelet Estimate NORMAL Plt Morphology Comment NORMAL RBC Morphology NORMAL Smear Tech's Comments MANUAL DIFF Anion Gap 15 Estim Creat Clear Calc 66.8 Estimated GFR 45 Random Glucose 175 H Lactic Acid 2.5 H* 2.5 H* Calcium 9.0 Magnesium 2.4 Total Bilirubin 0.5 AST 30 ALT 26 Alkaline Phosphatase 161 H Troponin I High Sens 19.0 H D 32.8 H D Total Protein 6.6 Albumin 4.1 COVID-19 (BESS) Negative COVID-19 Clin Com See Note Influenza Type A (GABBY) Negative Influenza Type B (GABBY) Negative Influenza A & B Note See Note Assessment and Plan (1) Colitis: Status: Acute Plan 55-year-old female with a past medical history of history of HLD, eosinophilic asthma, PFO, complex migraine, epilepsy, anxiety, depression, PTSD, anemia, chronic idiopathic constipation, vertigo, right shoulder impingement GERD, hypothyroidism; presented to the hospital today with a chief complaint of not feeling well/SOB/diarrhea. Admitted for following SOB/FISHER: Likely in the setting of acute asthma exacerbation: DuoNeb standing and p.r.n. Solu-Medrol IV Supplemental oxygen p.r.n. Trending pulse oximetry been ready for discharge Colitis: CT abdomen pelvis shows findings concerning for colitis. Patient was also on antibiotics recently Empirically covered with ceftriaxone and Flagyl Follow up stool studies including C diff NPO/clear liquid diet for now Patient on gentle IV fluids Syncope: Elevated troponins: Patient denied any chest pain. EKG nonischemic. Also concern for possible reduced clearance in the setting of JOI. Patient reports having syncope in the setting of severe coughing spells. Likely vasovagal episode Patient reports having 2 episodes. Monitor telemetry Echocardiogram Holter at the time of discharge Cardiology follow-up Severe leukocytosis: Likely multifactorial in the setting of infection/recent steroid use. Will monitor. JOI: Patient baseline creatinine around 0.6. Creatinine on presentation was 1.2. Likely prerenal. Gentle IV fluids. Mild hyponatremia: Will monitor Metabolic acidosis: Patient on IV fluids. Lactic acidosis: Will follow-up repeat levels HX epilepsy: Continue home medications Med reconciliation: Denies heme patient's home medications pending med rec by pharmacy. DVT prophylaxis: Lovenox Code status: Full code Quality Stroke Does the patient have a stroke diagnosis?: No VTE Prior VTE?: No VTE Risk Level:: Medical - moderate - high VTE Device Contraindication: Treatment Not Indicated VTE Drug Contraindication: N/A - Med Ordered
[2025-01-21 18:30] LABS: Reflex Lactate? Lactic Acid Added
[2025-01-21] MEDS: Dextrose 5 % and 0.45 % NaCl 1,000 ML 100 ML IVCONT (18:50)
--- NOTE | 2025-01-21 19:00 | PC.NURSE ---
this RN assumed care of this pt @1900, pt noted to be recieving US at the bedside, no apparent distress noted at this time
[2025-01-21] MEDS: metroNIDAZOLE/NS 500 MG/100 ML PIGGYBACK 100 MG IV (19:37)
--- NOTE | 2025-01-21 19:40 | PC.NURSE ---
this RN floating. 1 IV access has IVF infusing, 2nd IV accessed to Laureen cerda. abx infusing per mar and lovenox given per mar. pt requested food/drink, educated currently NPO and will let primary RN. call garcia within reach.
[2025-01-21 19:55] LABS: ~Lactic Acid-LAB USE ONLY 1.3 mmol/L (0.5-2.0)
--- NOTE | 2025-01-21 20:12 | P.CONGS_ITS ---
History of Present Illness Consult details Consult date: 01/21/25 Requesting physician: Pineda Pop Narrative: 55-year-old female patient presenting to the emergency department with cough, shortness of breath, fever, chills, nausea, vomiting, and diarrhea of 1 day's duration. He has a past history of morbid obesity, eosinophilic asthma, PFO, HTN, seizures, hypothyroidism, diverticulitis and GERD. She previously underwent brain surgery for cerebral aneurysm. She has a known history of symptomatic cholelithiasis during her approximately 26 years ago. Her symptoms improved after her delivery and she never ended up having gallbladder surgery. Patient was evaluated in a walk-in clinic on 01/20/2025 and a viral panel was positive for rhino virus. She reports approximately 4 episodes of explosive vomiting and diarrhea over the past 24 hours. Laboratories were positive for an elevated WBC of 30.9, lactate of 2.5, alkaline phosphatase of 161. CT abdomen and pelvis revealed thickening of the colon wall suggestive of a colitis. Ultrasound of the abdomen revealed multiple gallstones with no wall thickening, pericholecystic fluid, common bile duct dilatation or sonographic Martinez sign. Review of Systems 2 Review of Systems: Yes all other systems are reviewed and are negative PMFSH Past Medical History Medical History (Updated 01/21/25 @ 20:20 by Popeye Anna MD) Colon cancer screening Hospital discharge follow-up Other specified hypothyroidism Left sided abdominal pain Influenza A H1N1 infection Stool incontinence Shoulder pain Anemia Bronchitis due to COVID-19 virus COVID Acute pneumonia Work related injury Acute diarrhea Paresthesias in left hand Dysuria PFO (patent foramen ovale) Shortness of breath Community acquired pneumonia Chronic idiopathic constipation Pre-op examination Encounter for routine gynecological examination LFT elevation Encounter for general adult medical examination with abnormal findings Respiratory tract congestion with cough Hospital discharge follow-up COVID-19 Tracheobronchitis COVID-19 Iron deficiency anemia Shoulder pain, right Nausea and vomiting PFO (patent foramen ovale) History of transesophageal echocardiography (LAN) Colitis Abnormal angiogram of head COVID-19 Asthma Thyroid disease GERD (gastroesophageal reflux disease) Anemia Aneurysm Family History Family History Father Diabetes Arthritis Diverticulitis Leukemia Mental health disorder Lung cancer Mother Anemia Arthritis Colon polyps Myocardial infarction Brother Crohn's disease Testicular cancer Brother Cancer Paternal Grandfather Leukemia Other Substance use disorder Surgical History Surgical History History of surgery of uterus H/O endoscopy History of H/O brain surgery History of colonoscopy Social History Social History Household Members: Spouse and Children Housing: House Are you a primary healthcare business analyst to a significant other at home: No Do you presently have visiting nurse or other home services: No Alcohol intake: former Patient Tobacco Use Status: Former Tobacco user Tobacco use type: Cigarette Cigarettes Per Day: 10 Smoked in Last 30 Days: No e-Cigarette/Vaping Use: Never Used Second Hand Smoke Exposure: No Use of substances other than those prescribed or required for medical reasons: Yes Substance Use Type: Marijuana Substance Use Frequency: Occasionally Advance Directives: Yes Advance Directives on File: Yes Advance Directives Date on File: 04/09/21 Do you have a plan to hurt others: No Plan Patient : No service: No 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al status: employed 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: [employer]/ right hand dominant Cognitive needs: No Hearing needs: No Vision needs: Yes Meds Allergies Allergy/AdvReac Type Severity Reaction Status Date / Time niacin (Niaspan Allergy Intermediate skin Verified 01/21/25 13:02 Extended-Release) blisters tramadol Allergy Intermediate seizures Verified 01/21/25 13:02 barley (BARLEY) Allergy Unknown UNKNOWN Verified 01/21/25 13:02 fluticasone (Advair Diskus) Allergy Unknown Shortness Verified 01/21/25 13:02 of Breath ibuprofen Allergy Unknown Swelling Verified 01/21/25 13:02 naratriptan Allergy Unknown unknown Verified 01/21/25 13:02 Penicillins (PENICILLINS) Allergy Unknown Unknown Verified 01/21/25 13:02 sumatriptan Allergy Unknown unknown Verified 01/21/25 13:02 trazodone (TRAZODONE) Allergy Unknown UNKNOWN Verified 01/21/25 13:02 omalizumab (From Xolair) AdvReac Severe Anaphylaxis Verified 01/21/25 13:02 rubber, unspecified AdvReac Severe Unknown Verified 01/21/25 13:02 equate cough drops sugar free Allergy Mild Unknown Uncoded 01/21/25 13:02 silicone AdvReac Severe Unknown Uncoded 01/21/25 13:02 vaseline AdvReac Severe hives Uncoded 01/21/25 13:02 Active Medications: Current Medications Acetaminophen (Acetaminophen 325 Mg Tablet) 650 mg PO Q6H PRN PRN Reason: Pain, Mild 1-3,fever,headache Albuterol/Ipratropium (Albuterol/Iprat 2.5/0.5mg 3 Ml Ampul.Neb) 3 ml INHALE RQ4H WHILE AWAKE PRN PRN Reason: Shortness of Breath Calcium Carbonate (Calcium Carbonate 750 Mg Tab.Chew) 750 mg PO Q4H PRN PRN Reason: Heartburn Ceftriaxone Sodium (Ceftriaxone Sodium 1 Gm Vial) 1 gm IVPUSH Q24H [facility] Enoxaparin Sodium (Enoxaparin Sodium 40 Mg/0.4 Ml Syringe) 40 mg SUBCUT Q24H [facility] Last Admin: 01/21/25 19:37 Dose: 40 mg Dextrose/Sodium Chloride (D51/2ns) 1,000 mls @ 100 mls/hr IVCONT .Q10H [facility] Last Admin: 01/21/25 18:50 Dose: 100 mls/hr Metronidazole (Flagyl) 500 mg in 100 mls @ 100 mls/hr IV Q8H [facility] Last Admin: 01/21/25 19:37 Dose: 100 mls/hr Magnesium Hydroxide (Milk Of Magnesia 30 Ml Oral.Susp) 30 ml PO DAILY PRN PRN Reason: Constipation Melatonin (Melatonin 3 Mg Tablet) 6 mg PO BEDTIME PRN PRN Reason: Insomnia Sodium Chloride (0.9 % Sodium Chloride Flush 3 Ml Syringe) 3 ml IVFLUSH QSHIFT [facility] Topiramate (Topiramate 25 Mg Tablet) 25 mg PO BID [facility] Home Medications ?Medication ?Instructions ?Recorded ?Confirmed ?Last Taken ?Type acetaminophen 500 mg tablet 1,000 mg PO Q6H PRN Pain 0 05/29/24 01/17/25 Unknown History albuterol sulfate 90 mcg/actuation 2 puff inhalation Q 4H PRN 05/29/24 01/17/25 Unknown History aerosol inhaler (Ventolin HFA) Shortness Of Breath Or Wheezing bupropion HCl 150 mg tablet,12 hr 150 mg PO BID@0800,1 200 05/29/24 01/17/25 Unknown History sustained-release lidocaine 4 % topical patch 1 patch topical DAILY PRN Pain 05/29/24 01/17/25 Unknown History duloxetine 30 mg capsule,delayed mg PO .once at PM 01/17/25 Unknown History release aspirin 81 mg tablet 81 mg PO DAILY 11/22/24 0907/19 Unknown History duloxetine 20 mg capsule,delayed 20 mg PO DAILY 01/17/25 Unknown History release lorazepam 1 mg tablet 1 mg PO DAILY PRN 11/22/24 0 01/17/25 Unknown History Physical Exam 2 Vital Signs: Vital Signs: Last Vital Signs Temp 98.1 F 01/21/25 17:23 Pulse 79 01/21/25 17:23 Resp 18 01/21/25 17:23 BP 115/61 01/21/25 17:23 Pulse Ox 98 01/21/25 17:23 O2 Del Method Room Air 01/21/25 17:23 BMI result Body Mass Index 36.3 Const: General: cooperative and no acute distress Nutritional Appearance: w ell nourished Orientation/consciousness: patient oriented x3 Limitations: no limitations HEENT: Head: Yes normocephalic and Yes atraumatic Ears: hearing grossly normal bilaterally Resp: Effort & Inspection: normal respiratory effort, no audible wheezes, no cough and no respiratory distress Cardio: Jugular venous distension: no JVD GI: Inspection: Yes normal to inspection Palpation (GI): Tenderness to palpation present (GI) (Mild diffuse) Martinez's sign negative, no guarding, not rigid and No hepatosplenomegaly present Percussion: Yes normal to percussion Auscultation: normal bowel sounds Rectal Exam - Female: deferred Skin: Other: Warm, dry, no rash Neuro: General: patient oriented x3 Extrem: General: Yes no clubbing, cyanosis or edema Results Labs 01/21/25 14:10 01/21/25 14:10 Labs: Abnormal lab results 01/21/25 01/21/25 01/21/25 Range/Units 14:10 14:57 16:26 WBC 30.9 H* (4.8-10.8) X10*3/uL RBC 5.71 H D (4.20-5.50) X10*6/uL Neutrophils % (Manual) 87 H (45-73) % Band Neutrophils % 1 L (3-5) % Lymphocytes % (Manual) 6 L (20-40) % Abs Neuts (Manual) 27.2 H (2.0-8.3) X10*3/uL Monocytes # (Manual) 1.5 H (0.1-1.2) X10*3/uL Sodium 132 L (135-145) mmol/L Carbon Dioxide 16 L (22-29) mmol/L Random Glucose 175 H (60-115) mg/dL Lactic Acid 2.5 H* 2.5 H* (0.5-2.0) mmol/L Alkaline Phosphatase 161 H (39-117) U/L Troponin I High Sens 19.0 H D 32.8 H D (<3.5-17.0) ng/L Short CBC 01/21/25 Range/Units 14:10 WBC 30.9 H* (4.8-10.8) X10*3/uL Hgb 15.7 D (12.0-16.0) g/dl Hct 46.4 D (37.0-47.0) % Plt Count 397 D (160-400) X10*3/uL BMP 01/21/25 14:10 Sodium 132 L Potassium 3.8 Chloride 105 Carbon Dioxide 16 L BUN 13 Creatinine 1.24 Calcium 9.0 Liver Function 01/21/25 Range/Units 14:10 Total Bilirubin 0.5 (0.0-1.0) mg/dL AST 30 (5-31) U/L ALT 26 (0-31) U/L Alkaline Phosphatase 161 H (39-117) U/L Albumin 4.1 (3.5-5.0) g/dL All other labs normal. Assessment and Plan (1) Diarrhea: Status: Acute (2) Cholelithiasis: Status: Acute (3) Colitis: Status: Acute Plan 55-year-old female patient presenting with complaints of severe coughing, nausea, vomiting, abdominal pain and diarrhea found of 1 day duration. Patient has mild diffuse tenderness without rebound, guarding or rigidity. There was a negative Martinez sign. Laboratories revealed a markedly elevated WBC. CT significant for evidence of colitis with wall thickening. There are gallstone by CT and ultrasound without secondary evidence of cholecystitis. Suspect patient's symptoms may be related to colitis. The patient has a history of symptomatic cholelithiasis and should consider elective cholecystectomy once her systemic symptoms improve. Patient expressed understanding and agrees with the plan. Procedures Date of Service Date of Service: 01/21/25
--- NOTE | 2025-01-21 21:06 | HO.NURTONUR ---
Addendum entered by Hao Loyola 01/21/25 21:32: Access: 20g R. forearm pt has d5 in 1/2 NS running at 100mL/hr also has a 22g in the left hand Original Note: Chief Complaint: diarrhea 55-year-old female, full code, NPO (clars only), allergies to niacin, tramadol, barley, fluticasone, ibuprofen, naratriptan, penicillins,sumatriptan, trazadone, omalizumab with a past medical history of history of HLD, eosinophilic asthma, PFO, complex migraine, epilepsy, anxiety, depression, PTSD, anemia, chronic idiopathic constipation, vertigo, right shoulder impingement GERD, hypothyroidism; presented to the hospital today with a chief complaint of not feeling well. Patient reports that over the past week to 10 days she has been not feeling well; has been having sinus infection which slowly cleared up; she went to a birthday democr[place] and was exposed to the kids with infection; followed by she started developed more cough and sputum production. Reports he is having severe cough spells to the point that she syncopized at least x2. Her PCP also given her antibiotics along with prednisone which she took it for a couple days. And today she had severe diarrhea hence presented to the ER for further evaluation. Also reports abdominal pain. For the past few days she also reported having shortness of breath and dyspnea on exertion with wheezing. Denies any chest pain or palpitations. Denies any nausea or vomiting. Plan for admission Colitis: CT abdomen pelvis shows findings concerning for colitis. Patient was also on antibiotics recently, covered with ceftriaxone and Flagyl Follow up stool studies including C diff Patient on gentle IV fluids Cardiology follow-up Med reconciliation: Denies heme patient's home medications pending med rec by pharmacy.
[2025-01-21] MEDS: 0.9 % Sodium Chloride Flush 3 ML SYRINGE IVFLUSH (22:58)
[2025-01-22] VITALS (14 sets, daily range): BP systolic 103–143; BP diastolic 57–77; PULSE 72–99; RESP 15–18; TEMP 36.2–36.8; O2SAT 94–97
[2025-01-22] MEDS: metroNIDAZOLE/NS 500 MG/100 ML PIGGYBACK 100 MG IV ×3 (01:55→17:35)
[2025-01-22] MEDS: Dextrose 5 % and 0.45 % NaCl 1,000 ML 100 ML IVCONT ×3 (04:24→23:21)
[2025-01-22 07:09] LABS: Hematocrit 37.2 % (37.0-47.0); Hemoglobin 12.2 g/dl (12.0-16.0); Imm Gran Abs Auto 0.09 X10*3/uL (0.00-0.03); Imm Gran Pct Auto 0.7 % (0.0-0.4); Lymphocytes Absolute Auto 0.8 X10*3/uL (1.2-4.9); MANUAL DIFF FLAG SCAN; Mean Corpuscular HGB Conc 32.8 g/dl (31.0-35.0); Mean Corpuscular Hemoglobin 26.8 pg (27.0-33.0); Mean Corpuscular Volume 81.8 fL (80.0-98.0); NRBC Abs Auto 0.000 X10*3/uL (0.0-0.012); NRBC Pct Auto 0.0 /100WBC (0.0-0.2); Platelet Count 269 X10*3/uL (160-400); Red Blood Count 4.55 X10*6/uL (4.20-5.50); SCAN SMEAR FLAG 1; White Blood Count 13.0 X10*3/uL (4.8-10.8)
[2025-01-22 07:28] LABS: Alanine Aminotransferase 19 U/L (0-31); Albumin Level 3.5 g/dL (3.5-5.0); Alkaline Phosphatase 122 U/L (39-117); Aspartate Amino Transferase 15 U/L (5-31); Blood Urea Nitrogen 8 mg/dL (9-16); Calcium 8.7 mg/dL (8.4-10.2); Creatinine Clr Calc Pharmacy 119.8; Estimated Glomerular Filt Rate > 60; Total Protein 5.3 g/dL (6.5-8.0)
[2025-01-22 07:43] LABS: Anion Gap 10 (12-20); Carbon Dioxide 19 mmol/L (22-29); Chloride 113 mmol/L (96-108); Potassium 4.4 mmol/L (3.3-5.1); Sodium 138 mmol/L (135-145)
[2025-01-22] MEDS: Albuterol/Iprat 2.5/0.5MG 3 ML AMPUL.NEB INHALE ×2 (07:48→13:13)
[2025-01-22] MEDS: 0.9 % Sodium Chloride Flush 3 ML SYRINGE IVFLUSH ×3 (08:09→21:51)
--- NOTE | 2025-01-22 08:42 | PHA.MEDREC ---
Addendum entered by Mo Pradhan RPh 01/22/25 09:06: Reviewed by [facility]. Pt states she will finished prednisone course on 01/23. Original Note: Pharmacy Consult ? Medication Reconciliation Pharmacy has completed the medication reconciliation. Confirmed medication list with patient. Patient took all non-PRN morning meds yesterday morning (01/21). Patient took all non-PRN evening medications Thursday night (01/20). Patient last took dupixent on Thursday (01/18).
[2025-01-22] MEDS: buPROPion HCl XL 300 MG TAB.ER.24H PO (09:27)
--- NOTE | 2025-01-22 10:03 | HO.PM.IMPN ---
Subjective Subjective Date of Service: 01/22/25 Interval History: no further n/v/d Physical Exam Exam: Exam: General: AO X 3, no acute distress Resp: CTA bilateral, no accessory muscles used CVS: S1,S2,RRR GI: soft, non tender, non distended Neuro: motor grossly intact, alert Psych: appropriate affect, appropriate insight Vital Signs: Vital Signs: Last Vital Signs Temp 97.3 F 01/22/25 07:39 Pulse 83 01/22/25 07:49 Resp 15 01/22/25 07:49 BP 129/77 01/22/25 07:41 Pulse Ox 95 01/22/25 07:39 O2 Del Method Room Air 01/22/25 07:39 BMI result Body Mass Index 37.1 Objective Data Active Medications Acetaminophen (Acetaminophen 325 Mg Tablet) 650 mg PO Q6H PRN PRN Reason: Pain, Mild 1-3,fever,headache Albuterol/Ipratropium (Albuterol/Iprat 2.5/0.5mg 3 Ml Ampul.Neb) 3 ml INHALE RQ4H WHILE AWAKE PRN PRN Reason: Shortness of Breath Albuterol/Ipratropium (Albuterol/Iprat 2.5/0.5mg 3 Ml Ampul.Neb) 3 ml INHALE RQ4H WHILE AWAKE PRN PRN Reason: Shortness of Breath Albuterol/Ipratropium (Albuterol/Iprat 2.5/0.5mg 3 Ml Ampul.Neb) 3 ml INHALE RQ6H WHILE AWAKE [facility] Last Admin: 01/22/25 07:48 Dose: 3 ml Documented By: AGGE Aspirin (Aspirin 81 Mg Tab.Chew) 81 mg PO DAILY [facility] Last Admin: 01/22/25 09:27 Dose: 81 mg Documented By: JACK Benzonatate (Benzonatate 100 Mg Capsule) 100 mg PO TID PRN PRN Reason: Cough Last Admin: 01/22/25 08:09 Dose: 100 mg Documented By: JACK Bupropion HCl (Bupropion Hcl Xl 300 Mg Tab.Er.24h) 300 mg PO DAILY [facility] Last Admin: 01/22/25 09:27 Dose: 300 mg Documented By: JACK Calcium Carbonate (Calcium Carbonate 750 Mg Tab.Chew) 750 mg PO Q4H PRN PRN Reason: Heartburn Last Admin: 01/21/25 22:16 Dose: 750 mg Documented By: ETTA Ceftriaxone Sodium (Ceftriaxone Sodium 1 Gm Vial) 1 gm IVPUSH Q24H [facility] Last Admin: 01/22/25 08:09 Dose: 1 gm Documented By: JACK Duloxetine HCl (Duloxetine Hcl 20 Mg Capsule.) 20 mg PO DAILY@1700 MATTHEW Duloxetine HCl (Duloxetine Hcl 30 Mg Capsule.) 30 mg PO DAILY@1700 MATTHEW Enoxaparin Sodium (Enoxaparin Sodium 40 Mg/0.4 Ml Syringe) 40 mg SUBCUT Q24H [facility] Last Admin: 01/21/25 19:37 Dose: 40 mg Documented By: DAQUAN Dextrose/Sodium Chloride (D51/2ns) 1,000 mls @ 100 mls/hr IVCONT .Q10H [facility] Last Admin: 01/22/25 04:24 Dose: 100 mls/hr Documented By: ETTA Metronidazole (Flagyl) 500 mg in 100 mls @ 100 mls/hr IV Q8H [facility] Last Admin: 01/22/25 09:27 Dose: 100 mls/hr Documented By: JACK Levothyroxine Sodium (Levothyroxine Sodium 150 Mcg Tablet) 150 mcg PO DAILY@0600 [facility] Last Admin: 01/22/25 09:27 Dose: 150 mcg Documented By: JACK Lisinopril (Lisinopril 5 Mg Tablet) 5 mg PO DAILY [facility]; Protocol Last Admin: 01/22/25 09:27 Dose: 5 mg Documented By: JACK Loratadine (Loratadine 10 Mg Tablet) 10 mg PO DAILY [facility] Last Admin: 01/22/25 09:27 Dose: 10 mg Documented By: JACK Lorazepam (Lorazepam 1 Mg Tablet) 1 mg PO DAILY PRN PRN Reason: Anxiety Magnesium Hydroxide (Milk Of Magnesia 30 Ml Oral.Susp) 30 ml PO DAILY PRN PRN Reason: Constipation Melatonin (Melatonin 3 Mg Tablet) 6 mg PO BEDTIME PRN PRN Reason: Insomnia Last Admin: 01/21/25 22:11 Dose: 6 mg Documented By: ETTA Methylprednisolone Sodium Succinate (Methylprednisolone Sod Succ 40 Mg/Ml Vial) 40 mg IVPUSH Q8H [facility] Last Admin: 01/22/25 04:24 Dose: 40 mg Documented By: ETTA Montelukast Sodium (Montelukast Sodium 10 Mg Tablet) 10 mg PO DAILY@1700 [facility] Oxcarbazepine (Oxcarbazepine 150 Mg Tablet) 150 mg PO BID [facility] Last Admin: 01/22/25 09:27 Dose: 150 mg Documented By: JACK Prednisone (Prednisone 20 Mg Tablet) 20 mg PO DAILY [facility] Last Admin: 01/22/25 09:27 Dose: 20 mg Documented By: JACK Sodium Chloride (0.9 % Sodium Chloride Flush 3 Ml Syringe) 3 ml IVFLUSH QSHIFT [facility] Last Admin: 01/22/25 08:09 Dose: 3 ml Documented By: JACK Topiramate (Topiramate 25 Mg Tablet) 25 mg PO BID [facility] Last Admin: 01/22/25 08:09 Dose: 25 mg Documented By: JACK Topiramate (Topiramate 25 Mg Tablet) 25 mg PO BID [facility] Last Admin: 01/22/25 09:28 Dose: Not Given Documented By: JACK Non-Admin Reason: Duplicate Order Labs 01/22/25 06:44 01/22/25 06:44 Labs: Laboratory Results - last 24 hr 01/21/25 01/21/25 01/21/25 14:10 14:57 16:26 MCV 81.3 MCH 27.5 MCHC 33.8 RDW 13.7 Plt Count 397 D MPV 9.7 Immature Gran % (Auto) Cancelled Neut % (Auto) Cancelled Lymph % (Auto) Cancelled [place] % (Auto) Cancelled Eos % (Auto) Cancelled Baso % (Auto) Cancelled Lymph # (Auto) Cancelled [place] # (Auto) Cancelled Eos # (Auto) Cancelled Baso # (Auto) Cancelled Abs Immat Gran (auto) Cancelled Absolute Neuts (auto) Cancelled Absolute Nucleated RBC 0.000 Nucleated RBC % (auto) 0.0 Neutrophils % (Manual) 87 H Band Neutrophils % 1 L Lymphocytes % (Manual) 6 L Monocytes % (Manual) 5 Eosinophils % (Manual) 1 Abs Neuts (Manual) 27.2 H Lymphocytes # (Manual) 1.9 Monocytes # (Manual) 1.5 H Eosinophils # (Manual) 0.3 Platelet Estimate NORMAL Plt Morphology Comment NORMAL RBC Morphology NORMAL Smear Tech's Comments MANUAL DIFF Anion Gap 15 Estim Creat Clear Calc 66.8 Estimated GFR 45 Random Glucose 175 H Lactic Acid 2.5 H* 2.5 H* Lactic Acid F/U @ 2Hr Calcium 9.0 Magnesium 2.4 Total Bilirubin 0.5 AST 30 ALT 26 Alkaline Phosphatase 161 H Troponin I High Sens 19.0 H D 32.8 H D Total Protein 6.6 Albumin 4.1 COVID-19 (BESS) Negative COVID-19 Clin Com See Note Influenza Type A (GABBY) Negative Influenza Type B (GABBY) Negative Influenza A & B Note See Note 01/21/25 01/22/25 19:35 06:44 MCV 81.8 MCH 26.8 L MCHC 32.8 RDW 13.8 Plt Count 269 D MPV 9.7 Immature Gran % (Auto) 0.7 H Neut % (Auto) 90.8 H Lymph % (Auto) 6.1 L [place] % (Auto) 2.2 Eos % (Auto) 0.0 Baso % (Auto) 0.2 Lymph # (Auto) 0.8 L [place] # (Auto) 0.3 Eos # (Auto) 0.0 Baso # (Auto) 0.0 Abs Immat Gran (auto) 0.09 H Absolute Neuts (auto) 11.8 H Absolute Nucleated RBC 0.000 Nucleated RBC % (auto) 0.0 Neutrophils % (Manual) Band Neutrophils % Lymphocytes % (Manual) Monocytes % (Manual) Eosinophils % (Manual) Abs Neuts (Manual) Lymphocytes # (Manual) Monocytes # (Manual) Eosinophils # (Manual) Platelet Estimate Plt Morphology Comment RBC Morphology Smear Tech's Comments VERIFIED Anion Gap 10 L Estim Creat Clear Calc 119.8 Estimated GFR > 60 Random Glucose 194 H Lactic Acid Lactic Acid F/U @ 2Hr 1.3 Calcium 8.7 Magnesium Total Bilirubin 0.2 AST 15 ALT 19 Alkaline Phosphatase 122 H Troponin I High Sens Total Protein 5.3 L Albumin 3.5 COVID-19 (BESS) COVID-19 [employer] Com Influenza Type A (GABBY) Influenza Type B (GABBY) Influenza A & B Note Assessment and Plan (1) Colitis: Status: Acute Plan 55F PMH hyperlipidemia, eosinophilic asthma, pfo, complex migraine, epilepsy, mood disorder, PTSD, anemia, vertigo, hypothyroid presented with nausea vomiting and feeling unwell Moderate persistent asthma with acute decompensation Steroids, nebs Acute colitis Continue ceftriaxone and Flagyl, follow up stool studies, advance diet as tolerated No suspicion of acute cholecystitis Syncopal episode Monitor on tele, echo Leukocyte Combination of colitis and recent steroid use for asthma DVT prophylaxis with lovenox full code reason for continued hospitalization:advancing diet, awaiting stool studies Quality Stroke Does the patient have a stroke diagnosis?: No VTE Prior VTE?: No VTE Risk Level:: Medical - moderate - high VTE Device Contraindication: Treatment Not Indicated VTE Drug Contraindication: N/A - Med Ordered
--- NOTE | 2025-01-22 11:01 | P.CONCA_ITS ---
History of Present Illness History of Present Illness Date of Service: 01/22/25 Chief complaint: FEELING UNWELL LAST 3 DAYS Narrative: [age] year female presenting with colitis. She had syncope last Thursday and Thursday. She said she was coughing badly because she had a cold and while coughing she passed out. No chest discomfort or shortness of breath no dizziness or light headedness. She came with abdominal pain to us and was diagnosed with colitis. She is currently getting antibiotics. EKGs reviewed showing sinus rhythm 95 beats per minute, poor R-wave progression with nonspecific ST changes. [facility] Past Medical History Medical History (Updated 01/22/25 @ 11:31 by Kd Hernandez MD) Colon cancer screening Hospital discharge follow-up Other specified hypothyroidism Left sided abdominal pain Influenza A H1N1 infection Stool incontinence Shoulder pain Anemia Bronchitis due to COVID-19 virus COVID Acute pneumonia Work related injury Acute diarrhea Paresthesias in left hand Dysuria PFO (patent foramen ovale) Shortness of breath Community acquired pneumonia Chronic idiopathic constipation Pre-op examination Encounter for routine gynecological examination LFT elevation Encounter for general adult medical examination with abnormal findings Respiratory tract congestion with cough Hospital discharge follow-up COVID-19 Tracheobronchitis COVID-19 Iron deficiency anemia Shoulder pain, right Nausea and vomiting PFO (patent foramen ovale) History of transesophageal echocardiography (LAN) Colitis Abnormal angiogram of head COVID-19 Asthma Thyroid disease GERD (gastroesophageal reflux disease) Anemia Aneurysm Family History Family History Father Diabetes Arthritis Diverticulitis Leukemia Mental health disorder Lung cancer Mother Anemia Arthritis Colon polyps Myocardial infarction Brother Crohn's disease Testicular cancer Brother Cancer Paternal Grandfather Leukemia Other Substance use disorder Surgical History Surgical History History of surgery of uterus H/O endoscopy History of H/O brain surgery History of colonoscopy Social History Social History Household Members: Spouse and Children Household Members Other:: boyfriend and his son Housing: House Are you a primary pharmacist critical care to a significant other at home: No Do you presently have visiting nurse or other home services: No Alcohol intake: former Patient Tobacco Use Status: Former Tobacco user Tobacco use type: Cigarette Cigarettes Per Day: 10 Smoked in Last 30 Days: No e-Cigarette/Vaping Use: Never Used Second Hand Smoke Exposure: No Use of substances other than those prescribed or required for medical reasons: Yes Substance Use Type: Marijuana Substance Use Frequency: Occasionally Currently Displaying Signs/Symptoms of Drug Intoxication Withdrawal: No Have you been hit, kicked, punched, or otherwise hurt by someone within the past year? If so, by whom?: No Do you feel safe in your current relationship?: Yes Is there a partner from a previous relationship who is making you feel unsafe now?: No Are you made to feel afraid or neglected: No Advance Directives: Yes Advance Directives on File: Yes Advance Directives Date on File: 04/09/21 Do you have a plan to hurt others: No Plan Recently lost weight without trying: No Eating poorly because of decreased appetite: Yes Nutrition Risks: Poor intake 0-25% >4 days Patient : No : No Poor oral hygiene: No service: No 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al status: employed 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: [employer]/ right hand dominant Cognitive needs: No Hearing needs: No Vision needs: Yes Meds Allergies Allergy/AdvReac Type Severity Reaction Status Date / Time niacin (Niaspan Allergy Intermediate skin Verified 01/21/25 13:02 Extended-Release) blisters tramadol Allergy Intermediate seizures Verified 01/21/25 13:02 barley (BARLEY) Allergy Unknown UNKNOWN Verified 01/21/25 13:02 fluticasone (Advair Diskus) Allergy Unknown Shortness Verified 01/21/25 13:02 of Breath ibuprofen Allergy Unknown Swelling Verified 01/21/25 13:02 naratriptan Allergy Unknown unknown Verified 01/21/25 13:02 Penicillins (PENICILLINS) Allergy Unknown Unknown Verified 01/21/25 13:02 sumatriptan Allergy Unknown unknown Verified 01/21/25 13:02 trazodone (TRAZODONE) Allergy Unknown UNKNOWN Verified 01/21/25 13:02 omalizumab (From Xolair) AdvReac Severe Anaphylaxis Verified 01/21/25 13:02 rubber, unspecified AdvReac Severe Unknown Verified 01/21/25 13:02 equate cough drops sugar free Allergy Mild Unknown Uncoded 01/21/25 13:02 silicone AdvReac Severe Unknown Uncoded 01/21/25 13:02 vaseline AdvReac Severe hives Uncoded 01/21/25 13:02 Active Medications: Current Medications Acetaminophen (Acetaminophen 325 Mg Tablet) 650 mg PO Q6H PRN PRN Reason: Pain, Mild 1-3,fever,headache Albuterol/Ipratropium (Albuterol/Iprat 2.5/0.5mg 3 Ml Ampul.Neb) 3 ml INHALE RQ4H WHILE AWAKE PRN PRN Reason: Shortness of Breath Albuterol/Ipratropium (Albuterol/Iprat 2.5/0.5mg 3 Ml Ampul.Neb) 3 ml INHALE RQ4H WHILE AWAKE PRN PRN Reason: Shortness of Breath Albuterol/Ipratropium (Albuterol/Iprat 2.5/0.5mg 3 Ml Ampul.Neb) 3 ml INHALE RQ6H WHILE AWAKE [facility] Last Admin: 01/22/25 07:48 Dose: 3 ml Aspirin (Aspirin 81 Mg Tab.Chew) 81 mg PO DAILY [facility] Last Admin: 01/22/25 09:27 Dose: 81 mg Benzonatate (Benzonatate 100 Mg Capsule) 100 mg PO TID PRN PRN Reason: Cough Last Admin: 01/22/25 08:09 Dose: 100 mg Bupropion HCl (Bupropion Hcl Xl 300 Mg Tab.Er.24h) 300 mg PO DAILY [facility] Last Admin: 01/22/25 09:27 Dose: 300 mg Calcium Carbonate (Calcium Carbonate 750 Mg Tab.Chew) 750 mg PO Q4H PRN PRN Reason: Heartburn Last Admin: 01/21/25 22:16 Dose: 750 mg Ceftriaxone Sodium (Ceftriaxone Sodium 1 Gm Vial) 1 gm IVPUSH Q24H [facility] Last Admin: 01/22/25 08:09 Dose: 1 gm Duloxetine HCl (Duloxetine Hcl 20 Mg Capsule.) 20 mg PO DAILY@1700 [facility] Duloxetine HCl (Duloxetine Hcl 30 Mg Capsule.) 30 mg PO DAILY@1700 [facility] Enoxaparin Sodium (Enoxaparin Sodium 40 Mg/0.4 Ml Syringe) 40 mg SUBCUT Q24H [facility] Last Admin: 01/21/25 19:37 Dose: 40 mg Dextrose/Sodium Chloride (D51/2ns) 1,000 mls @ 100 mls/hr IVCONT .Q10H [facility] Last Admin: 01/22/25 04:24 Dose: 100 mls/hr Metronidazole (Flagyl) 500 mg in 100 mls @ 100 mls/hr IV Q8H [facility] Last Infusion: 01/22/25 10:27 Dose: Infused Levothyroxine Sodium (Levothyroxine Sodium 150 Mcg Tablet) 150 mcg PO DAILY@0600 [facility] Last Admin: 01/22/25 09:27 Dose: 150 mcg Lisinopril (Lisinopril 5 Mg Tablet) 5 mg PO DAILY [facility]; Protocol Last Admin: 01/22/25 09:27 Dose: 5 mg Loratadine (Loratadine 10 Mg Tablet) 10 mg PO DAILY [facility] Last Admin: 01/22/25 09:27 Dose: 10 mg Lorazepam (Lorazepam 1 Mg Tablet) 1 mg PO DAILY PRN PRN Reason: Anxiety Magnesium Hydroxide (Milk Of Magnesia 30 Ml Oral.Susp) 30 ml PO DAILY PRN PRN Reason: Constipation Melatonin (Melatonin 3 Mg Tablet) 6 mg PO BEDTIME PRN PRN Reason: Insomnia Last Admin: 01/21/25 22:11 Dose: 6 mg Methylprednisolone Sodium Succinate (Methylprednisolone Sod Succ 40 Mg/Ml Vial) 40 mg IVPUSH Q8H [facility] Last Admin: 01/22/25 04:24 Dose: 40 mg Montelukast Sodium (Montelukast Sodium 10 Mg Tablet) 10 mg PO DAILY@1700 [facility] Oxcarbazepine (Oxcarbazepine 150 Mg Tablet) 150 mg PO BID [facility] Last Admin: 01/22/25 09:27 Dose: 150 mg Prednisone (Prednisone 20 Mg Tablet) 20 mg PO DAILY [facility] Last Admin: 01/22/25 09:27 Dose: 20 mg Sodium Chloride (0.9 % Sodium Chloride Flush 3 Ml Syringe) 3 ml IVFLUSH QSHIFT [facility] Last Admin: 01/22/25 08:09 Dose: 3 ml Topiramate (Topiramate 25 Mg Tablet) 25 mg PO BID [facility] Last Admin: 01/22/25 08:09 Dose: 25 mg Topiramate (Topiramate 25 Mg Tablet) 25 mg PO BID [facility] Last Admin: 01/22/25 09:28 Dose: Not Given Home Medications ?Medication ?Instructions ?Recorded ?Confirmed ?Last Taken ?Type acetaminophen 500 mg tablet 1,000 mg PO Q6H PRN Pain 0 05/29/24 01/22/25 Unknown History albuterol sulfate 90 mcg/actuation 2 puff inhalation Q 4H PRN 05/29/24 01/22/25 Unknown History aerosol inhaler (Ventolin HFA) Shortness Of Breath Or Wheezing bupropion HCl 150 mg tablet,12 hr 300 mg PO DAILY 06/2101/22/25 01/21/25 History sustained-release duloxetine 30 mg capsule,delayed 30 mg PO BEDTIME 05/2901/22/25 01/20/25 History release aspirin 81 mg tablet 81 mg PO DAILY 11/22/2412/2701/21/25 History duloxetine 20 mg capsule,delayed 20 mg PO BEDTIME 10/2601/22/25 01/20/25 History release lorazepam 1 mg tablet 1 mg PO DAILY PRN Anxiety 01/22/25 Unknown History celecoxib 200 mg capsule 200 mg PO DAILY PRN Pain 01/22/25 Unknown History clonidine HCl 0.1 mg tablet 0.1 mg PO DAILY PRN Panic Attack(S) 01/22/25 01/22/25 Unknown History dexlansoprazole 60 mg 60 mg PO DAILY@0630 01/22/25 01/22/25 01/21/25 History capsule,biphase delayed release (Dexilant) fluticasone propionate 50 2 spray intranasal BID PRN 0 01/22/25 01/22/25 Unknown History mcg/actuation nasal allergies spray,suspension (Flonase Allergy Relief) levothyroxine 150 mcg tablet 150 mcg PO DAILY@0600 01/22/25 01/21/25 History melatonin 5 mg tablet 5 mg PO BEDTIME Sleep 01/22/25 01/20/25 History montelukast 10 mg tablet 10 mg PO BEDTIME 01/22/2501/20/25 History [id number] 18 mg-FA 400 1 tab PO DAILY 01/22/25 01/22/25 01/21/25 History mcg-calcium 500 mg-vit K 50 mcg tablet (Women's Multivitamin) simethicone 180 mg capsule 180 mg PO QID PRN gas 01/2201/22/25 Unknown History Physical Exam 2 Vital Signs: Vital Signs: Last Vital Signs Temp 97.3 F 01/22/25 07:39 Pulse 83 01/22/25 07:49 Resp 15 01/22/25 07:49 BP 129/77 01/22/25 07:41 Pulse Ox 95 01/22/25 07:39 O2 Del Method Room Air 01/22/25 07:39 BMI result Body Mass Index 37.1 GENERAL APPEARANCE: in no acute distress, pleasant. NECK: no carotid bruit, no jugular venous distention. SKIN: no suspicious lesions, warm and dry. HEART: no murmurs, regular rate and rhythm. LUNGS: clear to auscultation bilaterally. ABDOMEN: soft, nontender. EXTREMITIES: no edema. PERIPHERAL PULSES: equal. NEUROLOGIC: No gross deficits, AAO X 3 Objective Labs and Meds 01/22/25 06:44 01/22/25 06:44 Lab results: Laboratory Results - last 24 hr 01/21/25 01/21/25 01/21/25 14:10 14:57 16:26 WBC 30.9 H* RBC 5.71 H D Hgb 15.7 D Hct 46.4 D MCV 81.3 MCH 27.5 MCHC 33.8 RDW 13.7 Plt Count 397 D MPV 9.7 Immature Gran % (Auto) Cancelled Neut % (Auto) Cancelled Lymph % (Auto) Cancelled [place] % (Auto) Cancelled Eos % (Auto) Cancelled Baso % (Auto) Cancelled Lymph # (Auto) Cancelled [place] # (Auto) Cancelled Eos # (Auto) Cancelled Baso # (Auto) Cancelled Abs Immat Gran (auto) Cancelled Absolute Neuts (auto) Cancelled Absolute Nucleated RBC 0.000 Nucleated RBC % (auto) 0.0 Neutrophils % (Manual) 87 H Band Neutrophils % 1 L Lymphocytes % (Manual) 6 L Monocytes % (Manual) 5 Eosinophils % (Manual) 1 Abs Neuts (Manual) 27.2 H Lymphocytes # (Manual) 1.9 Monocytes # (Manual) 1.5 H Eosinophils # (Manual) 0.3 Platelet Estimate NORMAL Plt Morphology Comment NORMAL RBC Morphology NORMAL Smear Tech's Comments MANUAL DIFF Sodium 132 L Potassium 3.8 Chloride 105 Carbon Dioxide 16 L Anion Gap 15 BUN 13 Creatinine 1.24 Estim Creat Clear Calc 66.8 Estimated GFR 45 Random Glucose 175 H Lactic Acid 2.5 H* 2.5 H* Lactic Acid F/U @ 2Hr Calcium 9.0 Magnesium 2.4 Total Bilirubin 0.5 AST 30 ALT 26 Alkaline Phosphatase 161 H Troponin I High Sens 19.0 H D 32.8 H D Total Protein 6.6 Albumin 4.1 COVID-19 (BESS) Negative COVID-19 Clin Com See Note Influenza Type A (GABBY) Negative Influenza Type B (GABBY) Negative Influenza A & B Note See Note 01/21/25 01/22/25 19:35 06:44 WBC 13.0 H RBC 4.55 D Hgb 12.2 D Hct 37.2 MCV 81.8 MCH 26.8 L MCHC 32.8 RDW 13.8 Plt Count 269 D MPV 9.7 Immature Gran % (Auto) 0.7 H Neut % (Auto) 90.8 H Lymph % (Auto) 6.1 L [place] % (Auto) 2.2 Eos % (Auto) 0.0 Baso % (Auto) 0.2 Lymph # (Auto) 0.8 L [place] # (Auto) 0.3 Eos # (Auto) 0.0 Baso # (Auto) 0.0 Abs Immat Gran (auto) 0.09 H Absolute Neuts (auto) 11.8 H Absolute Nucleated RBC 0.000 Nucleated RBC % (auto) 0.0 Neutrophils % (Manual) Band Neutrophils % Lymphocytes % (Manual) Monocytes % (Manual) Eosinophils % (Manual) Abs Neuts (Manual) Lymphocytes # (Manual) Monocytes # (Manual) Eosinophils # (Manual) Platelet Estimate Plt Morphology Comment RBC Morphology Smear Tech's Comments VERIFIED Sodium 138 Potassium 4.4 Chloride 113 H Carbon Dioxide 19 L Anion Gap 10 L BUN 8 L Creatinine 0.70 Estim Creat Clear Calc 119.8 Estimated GFR > 60 Random Glucose 194 H Lactic Acid Lactic Acid F/U @ 2Hr 1.3 Calcium 8.7 Magnesium Total Bilirubin 0.2 AST 15 ALT 19 Alkaline Phosphatase 122 H Troponin I High Sens Total Protein 5.3 L Albumin 3.5 COVID-19 (BESS) COVID-19 Clin Com Influenza Type A (GABBY) Influenza Type B (GABBY) Influenza A & B Note Assessment and Plan (1) Syncope: Status: Acute Plan 55 year female presenting with syncope episode a week ago while coughing. Clinical story consistent with situational syncope. Continue to monitor on telemetry. Gentle hydration. On antibiotics for colitis. Echocardiography tomorrow. Thank you for allowing me to participate in the care of your patient. Please feel free to contact me if you have any questions. Procedures Date of Service Date of Service: 01/22/25
--- NOTE | 2025-01-22 15:21 | MHC.CM.PN ---
THIS CM MET WITH PT, SHE REPORTS BEING SELF-CARE, LIVES AT HOME WITH HER BOYFRIEND AND HIS SON. PTS FRIEND OR BOYFRIEND WILL TRANSPORT HER HOME AT DISCHARGE. HCP ON FILE AND VERIFIED. DCP: RETURN HOME SELF-CARE VIA SELF-ARRANGED TRANSPORT. PCP: DR. DORA PETTY
[2025-01-23] VITALS: BP 150/71; PULSE 75
[2025-01-23 00:30] VITALS: BP 148/86; PULSE 87
[2025-01-23] MEDS: metroNIDAZOLE/NS 500 MG/100 ML PIGGYBACK 100 MG IV (01:48)
[2025-01-23 03:37] VITALS: BP 119/58; PULSE 75; RESP 16; TEMP 36.4; O2SAT 94
[2025-01-23 07:15] LABS: Hematocrit 36.8 % (37.0-47.0); Hemoglobin 12.0 g/dl (12.0-16.0); Mean Corpuscular HGB Conc 32.6 g/dl (31.0-35.0); Mean Corpuscular Hemoglobin 27.3 pg (27.0-33.0); Mean Corpuscular Volume 83.8 fL (80.0-98.0); NRBC Abs Auto 0.000 X10*3/uL (0.0-0.012); NRBC Pct Auto 0.0 /100WBC (0.0-0.2); Platelet Count 248 X10*3/uL (160-400); Red Blood Count 4.39 X10*6/uL (4.20-5.50); White Blood Count 12.5 X10*3/uL (4.8-10.8)
[2025-01-23 07:39] LABS: Anion Gap 9 (12-20); Blood Urea Nitrogen 7 mg/dL (9-16); Calcium 8.8 mg/dL (8.4-10.2); Carbon Dioxide 24 mmol/L (22-29); Chloride 112 mmol/L (96-108); Creatinine Clr Calc Pharmacy 125.1; Estimated Glomerular Filt Rate > 60; Magnesium 2.2 mg/dL (1.6-2.6); Potassium 4.0 mmol/L (3.3-5.1); Sodium 141 mmol/L (135-145)
[2025-01-23 08:00] VITALS: BP 124/53; BP 142/71; PULSE 79; PULSE 82; RESP 20; TEMP 36.4; O2SAT 98
[2025-01-23 09:41] VITALS: BP 142/83; PULSE 82
[2025-01-23 09:42] VITALS: BP 140/85; PULSE 86
[2025-01-23] MEDS: buPROPion HCl XL 300 MG TAB.ER.24H PO (10:20)
[2025-01-23] MEDS: 0.9 % Sodium Chloride Flush 3 ML SYRINGE IVFLUSH (10:21)
--- NOTE | 2025-01-23 10:21 | PM.DS ---
DS: Providers Provider Date of Service: 01/23/25 Date of admission: 01/21/25 18:13 Date of discharge: 01/23/25 Primary care physician: Thee Tay MD Consults: 01/21/25 18:16 Consult to General Surgery Routine Consulting Provider: [facility] Reason for consultation: ?cholecystitis 01/21/25 18:17 Consult to Cardiology Routine Consulting Provider: [facility] Reason for consultation: syncope x2 DS: Diagnosis Discharge Diagnosis (1) Syncope: Status: Acute DS: Summary Hospital Course Hospital Course: from initial hpi: 55-year-old female with a past medical history of history of HLD, eosinophilic asthma, PFO, complex migraine, epilepsy, anxiety, depression, PTSD, anemia, chronic idiopathic constipation, vertigo, right shoulder impingement GERD, hypothyroidism; presented to the hospital today with a chief complaint of not feeling well. Patient reports that over the past week to 10 days she has been not feeling well; has been having sinus infection which slowly cleared up; she went to a birthday green party and was exposed to the kids with infection; followed by she started developed more cough and sputum production. Reports he is having severe cough spells to the point that she syncopized at least x2. Her PCP also given her antibiotics along with prednisone which she took it for a couple days. And today she had severe diarrhea hence presented to the ER for further evaluation. Also reports abdominal pain. For the past few days she also reported having shortness of breath and dyspnea on exertion with wheezing. Denies any chest pain or palpitations. Denies any nausea or vomiting. Review of all other systems is negative except mentioned above ER course: Per ER team, patient on presentation noted to be short of breath and wheezing; also reported abdominal pain; CT abdomen pelvis showed findings concerning for colitis. EKG was nonischemic. Troponins were slightly elevated. Given multiple episodes of diarrhea with significant white count concern for possible C diff. hospital course: Patient was admitted for acute colitis. Treated with ceftriaxone Flagyl and diet was advanced she is now feeling much better. She will be discharged home on 5 more days of Ceftin and Flagyl and she will follow up with Gastroenterology. For moderate persistent asthma with acute decompensation given steroids and nebulizer and resolved. For syncopal episode she had no events on telemetry for mood disorder was continued on bupropion, Cymbalta. For hypothyroid continue levothyroxine. Patient is feeling better will be discharged home. Time Attestation Discharge Coordination Time (in mins): 35 Quality: Safe Use of Opioids Does Pt have an Active Cancer Diagnosis on the Problem List?: No Quality: Stroke Does the patient have a stroke diagnosis?: No Physical Exam Exam: Exam: General: AO X 3, no acute distress Resp: CTA bilateral, no accessory muscles used CVS: S1,S2,RRR GI: soft, non tender, non distended Neuro: motor grossly intact, alert Psych: appropriate affect, appropriate insight Vital Signs: Vital Signs: Last Vital Signs Temp 97.6 F 01/23/25 08:00 Pulse 86 01/23/25 09:42 Resp 20 01/23/25 08:00 BP 140/85 H 01/23/25 09:42 Pulse Ox 98 01/23/25 08:00 O2 Del Method Room Air 01/23/25 08:00 BMI result Body Mass Index 37.1 DS: Data Data Completed and Pending Labs on day of discharge: Laboratory Results - last 24 hr 01/23/25 07:04 WBC 12.5 H RBC 4.39 Hgb 12.0 Hct 36.8 L MCV 83.8 MCH 27.3 MCHC 32.6 RDW 13.7 Plt Count 248 MPV 9.8 Absolute Nucleated RBC 0.000 Nucleated RBC % (auto) 0.0 Sodium 141 Potassium 4.0 Chloride 112 H Carbon Dioxide 24 Anion Gap 9 L BUN 7 L Creatinine 0.67 Estim Creat Clear Calc 125.1 Estimated GFR > 60 Random Glucose 160 H Calcium 8.8 Magnesium 2.2 Preliminary micro results at discharge 01/21/25 15:19 Blood Culture - Preliminary Blood - Venous No growth after 24 hours. 01/21/25 14:57 Blood Culture - Preliminary Blood - Venous No growth after 24 hours. Discharge Plan Discharge Anticipated Discharge Date/Time: 01/23/25 10:15 Patient Disposition: Home, Self-Care Discharge Diagnosis: colitis Referrals: Thee Tay MD [Primary Care Provider, Internal Medicine] - 1 Week Discharge Medications: New cefuroxime axetil 500 mg tablet 500 mg PO BID Qty: 10 0RF metronidazole 500 mg tablet 500 mg PO BID Qty: 10 0RF Continued (DME) fall detection monitor See Rx Instructions .Route .MEDSUPPLY Qty: 1 0RF Rx Instructions: As directed (DME) Blood pressure monitor See Rx Instructions .Route .MEDSUPPLY Qty: 1 0RF Rx Instructions: As directed loratadine 10 mg tablet 10 mg PO DAILY 30 Days Qty: 30 6RF lisinopril 5 mg tablet 5 mg PO DAILY Qty: 90 0RF cyclobenzaprine 5 mg tablet 5 mg PO ONCE PRN (Reason: left sciatica pain) Qty: 90 0RF ipratropium-albuterol 0.5 mg-3 mg(2.5 mg base)/3 mL solution for nebulization 3 ml inhalation Q4-6H PRN (Reason: wheezing) 30 Days Qty: 270 6RF topiramate 25 mg tablet 25 mg PO BID Qty: 60 3RF fluticasone propion-salmeterol [Advair HFA] 230-21 mcg/actuation HFA aerosol inhaler 2 puff inhalation Q12H Qty: 12 0RF Dupixent Pen 300 mg/2 mL pen injector 300 mg subcut Q2W 28 Days Qty: 4 12RF oxcarbazepine 150 mg tablet 150 mg PO BID Qty: 6 0RF bupropion HCl 150 mg tablet sustained-release 12 hr 300 mg PO DAILY acetaminophen 500 mg Tablet 1,000 mg PO Q6H PRN (Reason: Pain) albuterol sulfate [Ventolin HFA] 90 mcg/actuation HFA aerosol inhaler 2 puff inhalation Q4H PRN (Reason: Shortness Of Breath Or Wheezing) celecoxib 200 mg capsule 200 mg PO DAILY PRN (Reason: Pain) simethicone 180 mg capsule 180 mg PO QID PRN (Reason: gas) Rx Instructions: after meals montelukast 10 mg tablet 10 mg PO BEDTIME fluticasone propionate [Flonase Allergy Relief] 50 mcg/actuation spray,suspension 2 spray intranasal BID PRN (Reason: allergies) Rx Instructions: administer into each nostril clonidine HCl 0.1 mg Tablet 0.1 mg PO DAILY PRN (Reason: Panic Attack(S)) melatonin 5 mg Tablet 5 mg PO BEDTIME Women's Multivitamin 18 mg-400 mcg- 500 mg-50 mcg Tablet 1 tab PO DAILY dexlansoprazole [Dexilant] 60 mg capsule,biphase delayed releas 60 mg PO DAILY@0630 levothyroxine 150 mcg tablet 150 mcg PO DAILY@0600 lorazepam 1 mg tablet 1 mg PO DAILY PRN (Reason: Anxiety) aspirin 81 mg tablet 81 mg PO DAILY famotidine [Pepcid] 40 mg tablet 40 mg PO BEDTIME Qty: 30 6RF prednisone 20 mg tablet 20 mg PO DAILY 7 Days Qty: 7 0RF Patient Comments: Patient ends prednisone regimen tomorrow (01/23). duloxetine 30 mg capsule,delayed release(DR/EC) 30 mg PO BEDTIME duloxetine 20 mg capsule,delayed release(DR/EC) 20 mg PO BEDTIME Discharge Orders: Discharge Order (Routine); Ordered 01/23/25 Ordered By: Chavez Faustin Diet: Advance to usual diet Activity on Discharge: As tolerated Stand Alone Forms: Patient Portal Discharge page Print Language: Citizen Of [place] Care Plan Goals: recovery Health Concerns: colitis Plan of Treatment: 5 days roselia rios follow up with gi Assessment: see above
--- NOTE | 2025-01-23 10:49 | MHC.CM.PN ---
Pt. has been medically cleared to [place], she will go home via private transport, plan is self care.
== END 2025-01-23 11:21 | disposition home or self-care (01) | DRG 249 ==
LOC: HO.ED 16:55 → HO.EDOVER 20:25 → HO.IMC 20:56
PROVIDERS: Emergency Medicine Emergency Medical Services; Admitting Provider Hospitalist; Emergency Provider Emergency Medicine Emergency Medical Services; PCP Internal Medicine; Visit Provider Internal Medicine
DX: K52.9 Noninfective gastroenteritis and colitis, unspecified (principal); N17.9 Acute kidney failure, unspecified; E87.1 Hypo-osmolality and hyponatremia; J45.31 Mild persistent asthma with (acute) exacerbation; Q21.12 Patent foramen ovale; G40.909 Epilepsy, unspecified, not intractable, without status epilepticus; E03.9 Hypothyroidism, unspecified; Z20.822 Contact with and (suspected) exposure to COVID-19; Z79.82 Long term (current) use of aspirin; Z87.891 Personal history of nicotine dependence; Z79.890 Hormone replacement therapy; Z79.899 Other long term (current) drug therapy
CPT/HCPCS: 36415; 71045; 71275; 74177; 76705; 80048; 80053; 83605; 83735; 84484; 85007; 85025; 85027; 87040; 87502; 87635; 93005; 94640; 99222; 99285; J0692; J0696; J1171; J1271; J1650; J1836; J1885; J2405; J2919; Q9957; Q9967

== ENCOUNTER → 2025-01-21 13:44 | Outpatient (BNV) | payer OTHER, SELFPAY | PROVIDERS: Emergency Provider Emergency Medicine Emergency Medical Services; PCP Internal Medicine; Visit Provider Surgery | DX: K80.20 Calculus of gallbladder without cholecystitis without obstruction (principal); K52.9 Noninfective gastroenteritis and colitis, unspecified | CPT/HCPCS: 99222 ==

== ENCOUNTER → 2025-01-21 14:40 | Outpatient (BNV) | payer OTHER, SELFPAY | PROVIDERS: Emergency Provider Emergency Medicine Emergency Medical Services; PCP Internal Medicine; Visit Provider Radiology Diagnostic Radiology | DX: K52.9 Noninfective gastroenteritis and colitis, unspecified (principal); R05.9 Cough, unspecified; R16.0 Hepatomegaly, not elsewhere classified; R06.02 Shortness of breath | CPT/HCPCS: 71045; 71275; 74177; 76705 ==

== ENCOUNTER → 2025-01-21 18:13 | Outpatient (BNV) | payer OTHER, SELFPAY | PROVIDERS: Admitting Provider Hospitalist; Emergency Provider Emergency Medicine Emergency Medical Services; PCP Internal Medicine; Visit Provider Internal Medicine Cardiovascular Disease | DX: R55 Syncope and collapse (principal); R94.31 Abnormal electrocardiogram [ECG] [EKG]; R11.2 Nausea with vomiting, unspecified | CPT/HCPCS: 93010; 99222 ==

== ENCOUNTER → 2025-01-21 18:13 | Outpatient (BNV) | payer OTHER, SELFPAY | PROVIDERS: Admitting Provider Hospitalist; Emergency Provider Emergency Medicine Emergency Medical Services; PCP Internal Medicine; Visit Provider Internal Medicine | DX: K52.9 Noninfective gastroenteritis and colitis, unspecified (principal) | CPT/HCPCS: 99223; 99232 ==

== ENCOUNTER 2025-01-30 10:15 | Outpatient (AMB) | payer OTHER, SELFPAY ==
[2025-01-30 10:31] VITALS: BP 106/57; PULSE 94; O2SAT 97; BMI 40.8
--- NOTE | 2025-01-30 10:31 | MHC.OFFVIS ---
Vital Signs 01/30/25 10:31 Height 5 ft 5 in Weight 245 lb BMI 40.8 BP 106/57 L Blood Pressure Location Lt brachial Position Sitting Pulse 94 Pulse Source Pulse Oximeter Pulse Oximetry (%) 97 Oxygen Delivery Method Room Air Intake Visit Reasons: Asthma Allergies niacin (Niaspan Extended-Release) Allergy (Intermediate, Verified 01/30/25 10:36) skin blisters tramadol Allergy (Intermediate, Verified 01/30/25 10:36) seizures barley (BARLEY) Allergy (Unknown, Verified 01/30/25 10:36) UNKNOWN fluticasone (Advair Diskus) Allergy (Unknown, Verified 01/30/25 10:36) Shortness of Breath ibuprofen Allergy (Unknown, Verified 01/30/25 10:36) Swelling naratriptan Allergy (Unknown, Verified 01/30/25 10:36) unknown Penicillins (PENICILLINS) Allergy (Unknown, Verified 01/30/25 10:36) Unknown sumatriptan Allergy (Unknown, Verified 01/30/25 10:36) unknown trazodone (TRAZODONE) Allergy (Unknown, Verified 01/30/25 10:36) UNKNOWN omalizumab (From Xolair) Adverse Reaction (Severe, Verified 01/30/25 10:36) Anaphylaxis rubber, unspecified Adverse Reaction (Severe, Verified 01/30/25 10:36) Unknown equate cough drops sugar free Allergy (Mild, Uncoded 01/21/25 13:02) Unknown silicone Adverse Reaction (Severe, Uncoded 01/21/25 13:02) Unknown vaseline Adverse Reaction (Severe, Uncoded 01/21/25 13:02) hives HPI HPI Asthma: Details: 55-year-old lady, nonsmoker, followed for underlying severe persistent asthma with allergic component. After the last office visit she has been switched from Xolair to Dupixent secondary to injection reaction and now she continues on Dupixent, Advair, duo nebs, and albuterol MDI with good control of her symptoms, outside of heavy pollen count months. She denies recent exacerbations. [facility] Medical History (Updated 01/25/25 @ 00:02 by De Meier) Colon cancer screening Hospital discharge follow-up Other specified hypothyroidism Left sided abdominal pain Influenza A H1N1 infection Stool incontinence Shoulder pain Anemia Bronchitis due to COVID-19 virus COVID Acute pneumonia Work related injury Acute diarrhea Paresthesias in left hand Dysuria PFO (patent foramen ovale) Shortness of breath Community acquired pneumonia Chronic idiopathic constipation Pre-op examination Encounter for routine gynecological examination LFT elevation Encounter for general adult medical examination with abnormal findings Respiratory tract congestion with cough Hospital discharge follow-up COVID-19 Tracheobronchitis COVID-19 Iron deficiency anemia Shoulder pain, right Nausea and vomiting PFO (patent foramen ovale) History of transesophageal echocardiography (LAN) Colitis Abnormal angiogram of head COVID-19 Asthma Thyroid disease GERD (gastroesophageal reflux disease) Anemia Aneurysm Surgical History History of surgery of uterus H/O endoscopy History of H/O brain surgery History of colonoscopy Family History Father Diabetes Arthritis Diverticulitis Leukemia Mental health disorder Lung cancer Mother Anemia Arthritis Colon polyps Myocardial infarction Brother Crohn's disease Testicular cancer Brother Cancer Paternal Grandfather Leukemia Other Substance use disorder Social History Household Members: Spouse and Children Household Members Other:: boyfriend and his son Housing: House Are you a primary care center manager to a significant other at home: No Do you presently have visiting nurse or other home services: No Alcohol intake: former Comment: Refuses fall risk alarms, ambulates with steady gait. Patient Tobacco Use Status: Former Tobacco user Tobacco use type: Cigarette Cigarettes Per Day: 10 e-Cigarette/Vaping Use: Never Used Second Hand Smoke Exposure: No Substance Use Type: Marijuana Advance Directives Date on File: 04/09/21 service: No 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al status: employed 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: [employer]/ right hand dominant Cognitive needs: No Hearing needs: No Vision needs: Yes Review of Systems Const Denies daytime sleepiness, Denies excessive sweating, Denies fatigue, Denies fever(s), Denies lethargy, Denies malaise, Denies night sweats, Denies snoring and Denies weight loss Eyes Denies blurry vision and Denies itchy eyes ENT Denies nasal congestion, Denies post nasal drip, Denies sinus pain, Denies sinus pressure and Denies other ( Thrush) Card Denies chest pain, Denies pedal edema, Denies dyspnea, Denies orthopnea and Denies paroxysmal nocturnal dyspnea Resp Denies cough, Denies hemoptysis, Denies excessive phlegm production, Denies dyspnea, Denies snoring and Denies wheezing GI Denies abdominal pain and Denies heartburn Musc Denies myalgias, Denies arthralgias and Denies joint swelling Skin/Breast Denies rash Neuro Denies memory loss and Denies seizure-like activity Psych Denies abnormal sleep pattern, Denies anxiety and Denies memory loss Endo Denies excessive sweating, Denies fatigue and Denies heat intolerance Denny/Lymph Denies easy bruising Aller/Immun Denies itchy eyes, Denies seasonal rhinorrhea and Denies wheezing Physical Exam Vital Signs: Last Vital Signs Pulse 94 01/30/25 10:31 BP 106/57 L 01/30/25 10:31 Pulse Ox 97 01/30/25 10:31 Oxygen Delivery Method Room Air 01/30/25 10:31 BMI result Body Mass Index 40.8 Const General: no acute distress and alert Nutritional Appearance: not obese Orientation/consciousness: Other orientation findings ( oriented) HEENT Head: Yes atraumatic Eyes General: appearance normal, both eyes and all related structures Sclerae: sclerae normal EOM: EOMs intact bilaterally Neck Neck: Yes supple Lymphatic: no lymphadenopathy noted Resp Effort & Inspection: normal respiratory effort and no use of accessory muscles Auscultation: clear to auscultation bilaterally Cardio Rate: regular rate Rhythm: regular rhythm Heart sounds: no gallops, no murmurs and no rubs Skin General skin exam: other ( warm) Extrem General: No clubbing, No cyanosis and No edema Assessment & Plan Assessment & Plan (1) Severe persistent allergic asthma: Code(s): J45.50 - Severe persistent asthma, uncomplicated Category: Medical Plan: Reasonable control on current regimen of Dupixent, Advair, duo nebs, and albuterol MDI. Continue current regimen. (2) Environmental allergies: Code(s): Z91.09 - Other allergy status, other than to drugs and biological substances Category: Medical Plan: Reasonable control on Dupixent. Continue current regimen. Coding Level of Care Code Est Pt Level 4 (14257) Diagnoses Severe persistent allergic asthma J45.50 Environmental allergies Z91.09
--- OUTSIDE RECORDS SUMMARY | 2025-01-30 11:56 | XMS_ITS | Clinical Summary ---
Author Organization [facility] Address [address] [place] [address] Phone Care Team Providers Care Temperature Logging Operator Name Role Phone Thee Tay MD Primary Care Provider [phone] Social History Tobacco Use Types Packs/Day Years [...] [place] [id number] [facility] [employer] TechnologyHEALTH MCO Zephyr TechnologySUMMA HE[facility] M[facility] AppHarborSUM[facility] MCO BOULDERLookback [facility] MCO BOULDERDocument Agility MCO Care Teams Temperature Logging Operator Relationship Specialty Start Date End Date Thee Tay MD [address] [place] [address] PCP - General Internal Medicine 01/13/17 Additional Source Comments The information contained in this document represents components of the legal health record. It is not the complete legal health record.[facility]
--- OUTSIDE RECORDS SUMMARY | 2025-01-30 11:56 | XMS_ITS | Encounter Summary ---
Author Organization [facility] Address [address] [place] [address] Care Team Providers Care Ice Guard Tester Name Role Phone Braydon Sykes MD Primary Care Provider [phone] Encounter Details Date Type Department Care Team (Late st Contact Info) Description 06/03/2024 Lab Requisition [facility] - Main Lab [address] [facility] [place] [address] Braydon Sykes MD [address] [place] [id number] Encounter for other general examination Social History [...] AM EST) WBC 5.6 4.8 - 10.8 K/[facility] LAB HEMETOLOGY METHOD 06/03/2024 11:27 AM [facility] RBC 4.80 3.80 - 4.80 M/[facility] LAB HEMETOLOGY METHOD 06/03/2024 11:27 [...] CENTER LAB Platelets 199 130 - 400 K/[facility] LAB HEMETOLOGY METHOD 06/03/2024 11:27 AM [facility] MPV 10.8 7.0 - 11.0 FL LAB HEMETOLOGY METHOD 06/03/2024 11:27 AM [facility] NRBC 0.0 <1.0 % LAB HEMETOLOGY METHOD 06/03/2024 11:27 AM [facility] NRBC Absolute 0.00 <0.10 K/[facility] LAB HEMETOLOGY METHOD 06/03/2024 11:27 [...] ORDERABLES Final Res ult Performing Organization Address [facility]/ZIP Co de Phone Number [facility] [address] [place] [address], [place] [phone] * Magnesium (06/03/2024 6:18 AM EST) Pathologist [facility] Magnesium 2.3 1.9 - 2.6 mg/dL LAB CHEMISTRY METHOD 06/03/2024 11:57 AM EST [facility] Blood Venous blood specimen / Unknown Venipuncture / Unknown 06/03/2024 6:18 AM EST 06/03/2024 10:27 AM EST Braydon Sykes MD LAB BLOOD ORDERABLES Final Res ult Performing Organization Address [facility]/ZIP Co de Phone Number [facility] [address] [place] [address], [place] [phone] * (ABNORMAL) Comprehensive metabolic panel (06/03/2024 6:18 AM EST) [facility] Sodium 136 133 - 145 mmol/L [...] [facility] Comment:Calculation based on the [...] MD LAB BLOOD ORDERABLES Final Res ult [facility] [address] [place] [address], documented in this encounter Visit Diagnoses Diagnosis Encounter for other general examination documented in this encounter Care Teams Ice Guard Tester Relationship Specialty Start Date End Date Braydon Sykes MD [address] [place] [id number] PCP - General Internal Medicine 06/03/24 documented as of this encounter
--- OUTSIDE RECORDS SUMMARY | 2025-01-30 11:56 | XMS_ITS | Clinical Summary ---
Author Organization [address] [facility] Address [address] [place] [address] Phone Care Team Providers Care Piping Manager Name Role Phone Braydon Sykes MD Primary Care Provider [phone] Social History Tobacco Use Types Packs/Day Years Used Date Smoking Tobacco: Never Assessed Comments Unknown Sex and Gender Information Value Date Recorded Sex Assigned at Not on file Legal Sex Female 12:00 PM EST Gender Identity Not on file Sexual Orientation Not on file Plan of Treatment Health Maintenance Due Date Last Done Comments Breast Cancer Screening 1971 Colorectal Cancer Screening: Colonoscopy 1971 DTaP,Tdap,and Td Vaccines (1 - Tdap) 1990 Hepatitis B Vaccines (1 of 3 - 19+ 3-dose series) 1990 Cervical Cancer Screening: P ap Smear 01/10/1992 Pneumococcal Vaccine: 50+ Ye ars (1 of 1 - PCV) 2021 Zoster Vaccines (1 of 2) 2021 Depression Screening 04/27/2024 HIV Screening 06/03/2024 Hepatitis C Screening 06/03/2024 [...] topic Insurance [place]ICA[place] - [place] Care Teams Piping Manager Relationship Specialty Start Date End Date Braydon Sykes MD [address] [place] [id number] PCP - General Internal Medicine 06/03/24
--- OUTSIDE RECORDS SUMMARY | 2025-01-30 11:56 | XMS_ITS | Encounter Summary ---
Author Organization [facility] Address [address] [place] [address] Phone Care Team Providers Care Watch Dial Maker Name Role Phone Thee Tay MD Primary Care Provider [phone] Reason for Referral * Surgical (Within 1 month) - Closed Specialty Diagnoses / Procedures Referred By Carrie campos Referred To Contact electric motor assembler Diagnoses Temporomandibular joint disorder (TMJ) System, Provider Not In, PhD [address] [address] Phone: tel: Referral ID Status Reason Start Date Expiration Date Visits Re quested Visits Authorized [id number] Closed 01/14/2017 01/14/2018 1 1 Scheduling Instructions For dental clearance related to cardiac surgery, joint replacement surgery, oncologic care and organ transplantation please refer to Oral Medicine or Dentistry. Patients should present to appointment with any relavant office notes, imaging, and pathology results. Encounter Details Date Type Department Care Team (Latest Contact Info) Description 01/14/2017 Transcribe Orders [facility] Referral Management [address] [place] [phone] Unknown, Unknown, Temporomandibular joint disorder (TMJ) (Primary [...] Associated Diagnoses Order Schedule Ambulatory referral to [facility] Oral Maxillofacial Surgery Outpatient Referral Routine Temporomandibular joint disorder (TMJ) Ordered: 01/14/2017 documented as of this encounter Visit Diagnoses Diagnosis Temporomandibular joint disorder (TMJ)- Primary documented in this encounter Care Teams Watch Dial Maker Relationship Specialty Start Date End Date Thee Tay MD [facility] [facility] [place] [address] PCP - General Internal Medicine 01/13/17 documented as of this encounter Additional Source Comments The information contained in this document represents components of the legal health record. It is not the complete legal health record.[facility]
--- OUTSIDE RECORDS SUMMARY | 2025-01-30 11:56 | XMS_ITS | Encounter Summary ---
Author Organization [facility] Address [address] [place] [address] Care Team Providers Care Marine Tower Operator Name Role Phone Braydon Sykes MD Primary Care Provider [phone] Encounter Details Date Type Department Care Team (Late st Contact Info) Description 06/09/2024 Lab Requisition [facility] - Main Lab [address] [place] [address] Braydon Sykes MD [address] [place] [address] Encounter for other general examination Social History [...] LAB HEMETOLOGY METHOD 06/09/2024 8:24 AM EST [facility] RBC 4.40 3.80 - 4.80 M/[facility] LAB HEMETOLOGY METHOD 06/09/2024 8:24 AM EST [facility] Hemoglobin 12.1 11.5 - 16.0 [...] Final Res ult [facility] [address] [place] [address], * Basic metabolic panel (06/09/2024 6:00 AM [...] MD LAB BLOOD ORDERABLES Final Res ult [facility] [address] [place] [address], documented in this encounter Visit Diagnoses Diagnosis Encounter for other general examination documented in this encounter Care Teams Marine Tower Operator Relationship Specialty Start Date End Date Braydon Sykes MD [address] [place] [id number] PCP - General Internal Medicine 06/03/24 documented as of this encounter
== END 2025-01-30 10:50 | disposition home or self-care (01) ==
LOC: HO.HPS 10:17
PROVIDERS: PCP Internal Medicine; Visit Provider Internal Medicine Pulmonary Disease
DX: J45.50 Severe persistent asthma, uncomplicated (principal); Z91.09 Other allergy status, other than to drugs and biological substances
CPT/HCPCS: 99214

== ENCOUNTER → 2025-01-30 10:15 | Outpatient (BNVA) | payer OTHER, SELFPAY | PROVIDERS: PCP Internal Medicine; Visit Provider Internal Medicine Pulmonary Disease | DX: J45.50 Severe persistent asthma, uncomplicated (principal); Z91.09 Other allergy status, other than to drugs and biological substances | CPT/HCPCS: 99212 ==

== ENCOUNTER 2025-02-01 14:07 | Outpatient (AMB) | payer OTHER, SELFPAY ==
--- NOTE | 2025-02-01 14:13 | A.OFFPC_ITS ---
Vital Signs 02/01/25 14:15 Height 5 ft 5 in Weight 244 lb BMI 40.6 BP 108/68 Blood Pressure Location Lt brachial Position Sitting Pulse 88 Pulse Source Pulse Oximeter Pulse Oximetry (%) 97 Oxygen Delivery Method Room Air Intake Visit Reasons: Colaides and low BP Allergies niacin (Niaspan Extended-Release) Allergy (Intermediate, Verified 02/01/25 14:19) skin blisters tramadol Allergy (Intermediate, Verified 02/01/25 14:19) seizures barley (BARLEY) Allergy (Unknown, Verified 02/01/25 14:19) UNKNOWN fluticasone (Advair Diskus) Allergy (Unknown, Verified 02/01/25 14:19) Shortness of Breath ibuprofen Allergy (Unknown, Verified 02/01/25 14:19) Swelling naratriptan Allergy (Unknown, Verified 02/01/25 14:19) unknown Penicillins (PENICILLINS) Allergy (Unknown, Verified 02/01/25 14:19) Unknown sumatriptan Allergy (Unknown, Verified 02/01/25 14:19) unknown trazodone (TRAZODONE) Allergy (Unknown, Verified 02/01/25 14:19) UNKNOWN omalizumab (From Xolair) Adverse Reaction (Severe, Verified 02/01/25 14:19) Anaphylaxis rubber, unspecified Adverse Reaction (Severe, Verified 02/01/25 14:19) Unknown equate cough drops sugar free Allergy (Mild, Uncoded 01/21/25 13:02) Unknown silicone Adverse Reaction (Severe, Uncoded 01/21/25 13:02) Unknown vaseline Adverse Reaction (Severe, Uncoded 01/21/25 13:02) hives Medication List - Last Reconciled 02/01/25 by Thee Tay MD acetaminophen 1,000 mg PO Q6H PRN albuterol sulfate 90 mcg/actuation (Ventolin HFA) 2 puffs inhalation Q4H PRN aspirin 81 mg PO DAILY [Blood pressure monitor As directed] bupropion HCl SR 300 mg PO DAILY celecoxib 200 mg PO DAILY PRN clonidine HCl 0.1 mg PO DAILY PRN cyclobenzaprine 5 mg PO ONCE PRN dexlansoprazole (Dexilant) 60 mg PO DAILY@0630 duloxetine 20 mg PO BEDTIME duloxetine 30 mg PO BEDTIME dupilumab (Dupixent) 300 mg (2 mL) subcut Q2W 28 days [fall detection monitor As directed] famotidine (Pepcid) 40 mg PO BEDTIME fluticasone propion-salmeterol 230-21 mcg/actuation (Advair HFA) 2 puffs inhalation Q12H fluticasone propionate 50 mcg/actuation (Flonase Allergy Relief) 2 sprays intranasal BID PRN ipratropium-albuterol 0.5 mg-3 mg(2.5 mg base)/3 mL 3 mL inhalation Q4-6H PRN 30 days levothyroxine 150 mcg PO DAILY@0600 lisinopril 5 mg PO DAILY loratadine 10 mg PO DAILY 30 days lorazepam 1 mg PO DAILY PRN melatonin 5 mg PO BEDTIME montelukast 10 mg PO BEDTIME [id number]-FA-Ca carb-vit K 18 mg-400 mcg- 500 mg-50 mcg (Women's Multivitamin) 1 tab PO DAILY oxcarbazepine 150 mg PO BID simethicone 180 mg PO QID PRN topiramate 25 mg PO BID Tobacco use date assessed: 05/13/24 Dental Screening Dental Screen Date: 05/13/24 HPI Colaides and low BP HPI Details Patient is 55-year-old female who presented to emergency room on 01/21/2025 With a chief complaint of not feeling well Patient has a history of eosinophilic asthma, hypertension, hypothyroidism, GERD, diverticulosis, questionable seizure history She complained of shortness a breath cough and chills with nausea vomiting and diarrhea of 1 day duration before coming over On 17 of January patient was given a script for azithromycin prednisone and Mucinex On December she was seen in walk-in clinic and viral panel was done which showed positive for rhinovirus only Patient was afebrile in the emergency room and blood pressure was running low in 89/57 range which later on came up to 116/63 after IV fluids Her workup in emergency room showed lactic acid of 2.5 White count 02549 H&H 15.74 and 46.4 Sodium 132 bicarb 16 glucose 174 Alkaline phosphatase elevated at 161 Troponin 19 Chest x-ray did not reveal any obvious infiltrate CT scan was ordered as a PE protocol to evaluate for pulmonary embolism versus pneumonia and CT abdomen pelvis with IV contrast also ordered due to abdominal discomfort and diarrhea She was given 2 g of IV cefepime and doxycycline 100 mg IV EKG showed sinus rhythm 95 beats per minute no ST segment elevation no ST segment depression She was admitted Her CT scan abdomen showed findings consistent with infectious or inflammatory colitis without any obstruction Hepatosplenomegaly and small hiatal hernia She was treated for acute colitis with the treatment ceftriaxone Flagyl and then tied was advanced gradually until she started feeling better and then discharged home with 5 more days of Ceftin and Flagyl Patient was recommended to follow with the Gastroenterology as an outpatient Patient was to continued her regular medications which were Loratadine 10 mg Lisinopril 5 mg Cyclobenzaprine 5 mg as needed Ipratropium albuterol updraft treatments as needed Topamax 25 mg b.i.d. Advair Dupixent pen Oxcarbazepine 150 mg b.i.d. Wellbutrin 150 mg daily acetaminophen Celebrex 200 mg prn Simethicone 180 mg capsule q.i.d. p.r.n. Montelukast 10 mg once a day Flonase Clonidine 0.1 mg p.r.n. anxiety attack Dexilant Levothyroxine 150 mcg Lorazepam 1 mg p.r.n. 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 - Continue observation for potential gal lbladder removal with a referral to surgery scheduled. - Management of psychiatric medications to address dry mouth; caution advised against polypharmacy. - Recommending exploring physical activi ty through gym membership for weight management. - Breathing has returned to baseline; co ntinue monitoring for exacerbations. - Refer to pharmacy for flu vaccine if p atient decides to receive it later. Review of Systems - General: No fever no chills - Neurological: No headaches no dizziness - Ear nose throat: No sore throat no hearing difficulty no ear pain - Cardiovascular: No syncope, no chest pain, no palpitations - Gastrointestinal: No nausea vomiting or diarrhea Physical Exam General: No acute distress HEENT: no acute findings Neck: Supple Respiratory system: Lungs are clear, able to talk in full sentences, no audible wheeze Cardiovascular: S1-S2 regular in rate and rhythm Gastrointestinal: No pain on left lower quadrant Extremities: No new findings CEILING CLEANER: Alert awake oriented x3 motor intact Skin: Normal turgor PFSH Medical History Colon cancer screening Hospital discharge follow-up Other specified hypothyroidism Left sided abdominal pain Influenza A H1N1 infection Stool incontinence Shoulder pain Anemia Bronchitis due to COVID-19 virus COVID Acute pneumonia Work related injury Acute diarrhea Paresthesias in left hand Dysuria PFO (patent foramen ovale) Shortness of breath Community acquired pneumonia Chronic idiopathic constipation Pre-op examination Encounter for routine gynecological examination LFT elevation Encounter for general adult medical examination with abnormal findings Respiratory tract congestion with cough Hospital discharge follow-up COVID-19 Tracheobronchitis COVID-19 Iron deficiency anemia Shoulder pain, right Nausea and vomiting PFO (patent foramen ovale) History of transesophageal echocardiography (LAN) Colitis Abnormal angiogram of head COVID-19 Asthma Thyroid disease GERD (gastroesophageal reflux disease) Anemia Aneurysm Surgical History History of surgery of uterus H/O endoscopy History of H/O brain surgery History of colonoscopy Family History Father Diabetes Arthritis Diverticulitis Leukemia Mental health disorder Lung cancer Mother Anemia Arthritis Colon polyps Myocardial infarction Brother Crohn's disease Testicular cancer Brother Cancer Paternal Grandfather Leukemia Other Substance use disorder Social History Household Members: Spouse and Children Household Members Other:: boyfriend and his son Housing: House Are you a primary foster care social worker to a significant other at home: No Do you presently have visiting nurse or other home services: No Alcohol intake: former Comment: Refuses fall risk alarms, ambulates with steady gait. Patient Tobacco Use Status: Former Tobacco user Tobacco use type: Cigarette Cigarettes Per Day: 10 e-Cigarette/Vaping Use: Never Used Second Hand Smoke Exposure: No Substance Use Type: Marijuana Advance Directives Date on File: 04/09/21 service: No 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al status: employed 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: [employer]/ right hand dominant Cognitive needs: No Hearing needs: No Vision needs: Yes Questionnaire PHQ-9 Over the last 2 weeks, how often have you been bothered by any of the following problems? 1. Little interest or pleasure in doing things: not at all 2. Feeling down, depressed, or hopeless: several days 3. Trouble falling or staying asleep, or sleeping too much: nearly every day 4. Feeling tired or having little energy: nearly every day 5. Poor appetite or overeating: nearly every day 6. Feeling bad about yourself - or that you are a failure or have let yourself or your family down: not at all 7. Trouble concentrating on things, such as reading the newspaper or watching television: more than half the days 8. Moving or speaking so slowly that other people could have noticed. Or the opposite - being so fidgety or restless that you have been moving around a lot more than usual: not at all 9. Thoughts that you would be better off or of hurting yourself in some way: not at all Total score: 12 Depression Screening Interpretation: Positive Depression Screening Follow-up: Existing condition and In treatment Depression Screening Done: Yes 32016 - PHQ-9 Billing: Yes Source: Developed by Drs. Masood Arredondo, Lesly Pruitt, Thor Del Cid and colleagues, with an educational phil from [employer] Thrive Questionnaire Date Thrive assessed: 01/13/25 I am a: Patient What is your living situation today?: I have a steady place to live Within the past 12 months, did the food you bought not last and you didn't have the money to get more?: Sometimes True Within the past 12 months, did you worry whether your food would run out before you got money to buy more?: Sometimes True Do you have trouble paying for medicines?: No Do you have trouble getting transportation to medical appointments?: Yes Do you have trouble paying your heating and electricity bill?: No Do you have trouble taking care of your child, family member or friend?: No Do you have trouble with day-to-day activities such as bathing, preparing meals, shopping, managing finances, etc.?: No Are you currently unemployed and looking for a job?: I choose not to answer this question Are you interested in more education?: No Please select the resources that you would like help with: None Currently or been in a relationship where the following occur: No concerns reported THRIVE Score: 3 MARKO-7 AMB Questionnaire MARKO-7 Date MARKO - 7 assessed: 06/16/24 Source: Developed by Drs. Masood Arredondo, Lesly Pruitt, Thor Del Cid and colleagues, with an educational phil from [employer] Physical exam (Primary Care) Vital Signs: Last Vital Signs Pulse 88 02/01/25 14:15 BP 108/68 02/01/25 14:15 Pulse Ox 97 02/01/25 14:15 Oxygen Delivery Method Room Air 02/01/25 14:15 BMI result Body Mass Index 40.6 Tobacco/Smoking Status: Tobacco use Status Tobacco use date assessed 05/13/24 02/01/25 14:14 Patient Tobacco Use Status Former Tobacco user 02/01/25 14:14 Tobacco use type Cigarette 02/01/25 14:14 e-Cigarette/Vaping Use Never Used 02/01/25 14:14 PHQ-9: PHQ-9 Score PHQ-9: Total score 12 02/01/25 14:57 Depression Screening Interpretation: Positive Depression Screening Follow-up: Existing condition and In treatment Thrive Assessment: Date of Thrive Assessment Date Thrive assessed 01/13/25 02/01/25 14:14 Currently or been in a relationship where the following occur: No concerns reported Coding Level of Care Code Est Pt Level 5 (30368) Diagnoses Hospital discharge follow-up Z09 Gall stones K80.20 Severe persistent allergic asthma J45.50 Acute colitis K52.9 Polypharmacy Z79.899 Moderate episode of recurrent major depressive disorder F33.1 Active/Remission status: currently active Major depression episode severity: moderate Post traumatic stress disorder (PTSD) F43.10 Additional Codes PHQ-9 - 15051 - PHQ-9 Billing: Yes ([id number]) Time Spent (min) 40 Comment review ER/Hospital notes/imaging/facetoface/document/coordination Assessment & Plan Assessment & Plan (1) Hospital discharge follow-up: Code(s): Z09 - Encounter for follow-up examination after completed treatment for conditions other than malignant neoplasm Category: Medical (2) Gall stones: Code(s): K80.20 - Calculus of gallbladder without cholecystitis without obstruction Category: Medical (3) Severe persistent allergic asthma: Code(s): J45.50 - Severe persistent asthma, uncomplicated Category: Medical (4) Acute colitis: Code(s): K52.9 - Noninfective gastroenteritis and colitis, unspecified Category: Medical (5) Polypharmacy: Code(s): Z79.899 - 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 Category: Medical (6) Major depression, recurrent: Code(s): F33.9 - Major depressive disorder, recurrent, unspecified Category: Medical Qualifiers: Active/Remission status: currently active Major depression episode severity: moderate Qualified Code(s): F33.1 - Major depressive disorder, recurrent, moderate (7) Post traumatic stress disorder (PTSD): Code(s): F43.10 - Post-traumatic stress disorder, unspecified Category: Medical Plan Patient is 55-year-old female who presented to emergency room on 01/21/2025 With a chief complaint of not feeling well Patient has a history of eosinophilic asthma, hypertension, hypothyroidism, GERD, diverticulosis, questionable seizure history She complained of shortness a breath cough and chills with nausea vomiting and diarrhea of 1 day duration before coming over On 17 of January patient was given a script for azithromycin prednisone and Mucinex On December she was seen in walk-in clinic and viral panel was done which showed positive for rhinovirus only Patient was afebrile in the emergency room and blood pressure was running low in 89/57 range which later on came up to 116/63 after IV fluids Her workup in emergency room showed lactic acid of 2.5 White count 51840 H&H 15.74 and 46.4 Sodium 132 bicarb 16 glucose 174 Alkaline phosphatase elevated at 161 Troponin 19 Chest x-ray did not reveal any obvious infiltrate CT scan was ordered as a PE protocol to evaluate for pulmonary embolism versus pneumonia and CT abdomen pelvis with IV contrast also ordered due to abdominal discomfort and diarrhea She was given 2 g of IV cefepime and doxycycline 100 mg IV EKG showed sinus rhythm 95 beats per minute no ST segment elevation no ST segment depression She was admitted Her CT scan abdomen showed findings consistent with infectious or inflammatory colitis without any obstruction Hepatosplenomegaly and small hiatal hernia She was treated for acute colitis with the treatment ceftriaxone Flagyl and then tied was advanced gradually until she started feeling better and then discharged home with 5 more days of Ceftin and Flagyl Patient was recommended to follow with the Gastroenterology as an outpatient Patient was to continued her regular medications which were Loratadine 10 mg Lisinopril 5 mg Cyclobenzaprine 5 mg as needed Ipratropium albuterol updraft treatments as needed Topamax 25 mg b.i.d. Advair Dupixent pen Oxcarbazepine 150 mg b.i.d. Wellbutrin 150 mg daily acetaminophen Celebrex 200 mg prn Simethicone 180 mg capsule q.i.d. p.r.n. Montelukast 10 mg once a day Flonase Clonidine 0.1 mg p.r.n. anxiety attack Dexilant Levothyroxine 150 mcg Lorazepam 1 mg p.r.n. 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 - Continue observation for potential gallbladder removal with a referral to surgery scheduled. - Management of psychiatric medications to address dry mouth; caution advised against polypharmacy. - Recommending exploring physical activity through gym membership for weight management. - Breathing has returned to baseline; continue monitoring for exacerbations. - Refer to pharmacy for flu vaccine if patient decides to receive it later. Orders: Referrals General Surgery Referral K80.20 - Calculus of gallbladder without cholecystitis without obstruction
[2025-02-01 14:15] VITALS: BP 108/68; PULSE 88; O2SAT 97; BMI 40.6
== END 2025-02-01 14:54 | disposition home or self-care (01) ==
LOC: HO.HMCC 14:08
PROVIDERS: PCP Internal Medicine; Visit Provider Internal Medicine
DX: J45.50 Severe persistent asthma, uncomplicated (principal); F33.1 Major depressive disorder, recurrent, moderate; Z09 Encounter for follow-up examination after completed treatment for conditions other than malignant neoplasm; K80.20 Calculus of gallbladder without cholecystitis without obstruction; K52.9 Noninfective gastroenteritis and colitis, unspecified; Z79.899 Other long term (current) drug therapy; F43.10 Post-traumatic stress disorder, unspecified

== ENCOUNTER → 2025-02-01 14:07 | Outpatient (BNVA) | payer OTHER, SELFPAY | PROVIDERS: PCP Internal Medicine; Visit Provider Internal Medicine | DX: I10 Essential (primary) hypertension (principal); E03.9 Hypothyroidism, unspecified; K21.9 Gastro-esophageal reflux disease without esophagitis; K57.90 Diverticulosis of intestine, part unspecified, without perforation or abscess without bleeding; R11.2 Nausea with vomiting, unspecified; R68.83 Chills (without fever); K80.20 Calculus of gallbladder without cholecystitis without obstruction; J45.50 Severe persistent asthma, uncomplicated; K52.9 Noninfective gastroenteritis and colitis, unspecified; F33.1 Major depressive disorder, recurrent, moderate; F43.10 Post-traumatic stress disorder, unspecified; Z79.899 Other long term (current) drug therapy | CPT/HCPCS: 96127; 99212 ==

== ENCOUNTER 2025-02-04 09:05 | Outpatient (REF) | payer OTHER, SELFPAY ==
[2025-02-04 12:39] LABS: Resp Syncy Virus RNA Qual PCR NEGATIVE (Negative); SARS COV2 PCR INHOUSE NEGATIVE (Negative)
== END 2025-02-04 09:06 | disposition home or self-care (01) ==
LOC: HO.LNP 09:05
PROVIDERS: PCP Internal Medicine; Visit Provider Family Medicine
DX: J40 Bronchitis, not specified as acute or chronic (principal); B34.9 Viral infection, unspecified; Z87.891 Personal history of nicotine dependence
CPT/HCPCS: 87637; 99212

== ENCOUNTER 2025-02-04 09:05 | Outpatient (AMB) | payer OTHER, SELFPAY ==
--- NOTE | 2025-02-04 09:06 | MHC.OFFWIV ---
Intake Vital Signs 02/04/25 09:07 Height 5 ft 4 in Weight 242 lb BMI 41.5 BP 122/68 Blood Pressure Location Lt brachial Position Sitting Respiration 18 Pulse 99 Pulse Source Pulse Oximeter Temp 98.8 F Temp Source Oral Pulse Oximetry (%) 96 Oxygen Delivery Method Room Air Intake Visit Reasons: EP, sinus congestion 3 days Intake Note: Pt is here today c/o sinus congestion and cough x3days Patient Tobacco Use Status: Former Tobacco user Allergies niacin (Niaspan Extended-Release) Allergy (Intermediate, Verified 02/04/25 09:10) skin blisters tramadol Allergy (Intermediate, Verified 02/04/25 09:10) seizures barley (BARLEY) Allergy (Unknown, Verified 02/04/25 09:10) UNKNOWN fluticasone (Advair Diskus) Allergy (Unknown, Verified 02/04/25 09:10) Shortness of Breath ibuprofen Allergy (Unknown, Verified 02/04/25 09:10) Swelling naratriptan Allergy (Unknown, Verified 02/04/25 09:10) unknown Penicillins (PENICILLINS) Allergy (Unknown, Verified 02/04/25 09:10) Unknown sumatriptan Allergy (Unknown, Verified 02/04/25 09:10) unknown trazodone (TRAZODONE) Allergy (Unknown, Verified 02/04/25 09:10) UNKNOWN omalizumab (From Xolair) Adverse Reaction (Severe, Verified 02/04/25 09:10) Anaphylaxis rubber, unspecified Adverse Reaction (Severe, Verified 02/04/25 09:10) Unknown equate cough drops sugar free Allergy (Mild, Uncoded 02/04/25 09:10) Unknown silicone Adverse Reaction (Severe, Uncoded 02/04/25 09:10) Unknown vaseline Adverse Reaction (Severe, Uncoded 02/04/25 09:10) hives Medication List - Last Reconciled 02/04/25 by Ramón Nascimento MD acetaminophen 1,000 mg PO Q6H PRN albuterol sulfate 90 mcg/actuation (Ventolin HFA) 2 puffs inhalation Q4H PRN aspirin 81 mg PO DAILY [Blood pressure monitor As directed] bupropion HCl SR 300 mg PO DAILY celecoxib 200 mg PO DAILY PRN clonidine HCl 0.1 mg PO DAILY PRN cyclobenzaprine 5 mg PO ONCE PRN dexlansoprazole (Dexilant) 60 mg PO DAILY@0630 duloxetine 20 mg PO BEDTIME duloxetine 30 mg PO BEDTIME dupilumab (Dupixent) 300 mg (2 mL) subcut Q2W 28 days [fall detection monitor As directed] famotidine (Pepcid) 40 mg PO BEDTIME fluticasone propion-salmeterol 230-21 mcg/actuation (Advair HFA) 2 puffs inhalation Q12H fluticasone propionate 50 mcg/actuation (Flonase Allergy Relief) 2 sprays intranasal BID PRN ipratropium-albuterol 0.5 mg-3 mg(2.5 mg base)/3 mL 3 mL inhalation Q4-6H PRN 30 days levothyroxine 150 mcg PO DAILY@0600 lisinopril 5 mg PO DAILY loratadine 10 mg PO DAILY 30 days lorazepam 1 mg PO DAILY PRN melatonin 5 mg PO BEDTIME montelukast 10 mg PO BEDTIME sv-cw-xqww-FA-Ca carb-vit K 18 mg-400 mcg- 500 mg-50 mcg (Women's Multivitamin) 1 tab PO DAILY oxcarbazepine 150 mg PO BID prednisone 40 mg (2 x 20 mg) PO DAILY 5 days simethicone 180 mg PO QID PRN topiramate 25 mg PO BID HPI EP, sinus congestion 3 days HPI Details Patient presents with worsening nasal and chest congestion over the past 2 days Also feels feverish and has very sore throat No at home sick contacts PFSH Medical History Colon cancer screening Hospital discharge follow-up Other specified hypothyroidism Left sided abdominal pain Influenza A H1N1 infection Stool incontinence Shoulder pain Anemia Bronchitis due to COVID-19 virus COVID Acute pneumonia Work related injury Acute diarrhea Paresthesias in left hand Dysuria PFO (patent foramen ovale) Shortness of breath Community acquired pneumonia Chronic idiopathic constipation Pre-op examination Encounter for routine gynecological examination LFT elevation Encounter for general adult medical examination with abnormal findings Respiratory tract congestion with cough Hospital discharge follow-up COVID-19 Tracheobronchitis COVID-19 Iron deficiency anemia Shoulder pain, right Nausea and vomiting PFO (patent foramen ovale) History of transesophageal echocardiography (LAN) Colitis Abnormal angiogram of head COVID-19 Asthma Thyroid disease GERD (gastroesophageal reflux disease) Anemia Aneurysm Surgical History History of surgery of uterus H/O endoscopy History of H/O brain surgery History of colonoscopy Family History Father Diabetes Arthritis Diverticulitis Leukemia Mental health disorder Lung cancer Mother Anemia Arthritis Colon polyps Myocardial infarction Brother Crohn's disease Testicular cancer Brother Cancer Paternal Grandfather Leukemia Other Substance use disorder Social History Household Members: Spouse and Children Household Members Other:: boyfriend and his son Housing: House Are you a primary early breastfeeding care specialist to a significant other at home: No Do you presently have visiting nurse or other home services: No Alcohol intake: former Comment: Refuses fall risk alarms, ambulates with steady gait. Patient Tobacco Use Status: Former Tobacco user Tobacco use type: Cigarette Cigarettes Per Day: 10 e-Cigarette/Vaping Use: Never Used Second Hand Smoke Exposure: No Substance Use Type: Marijuana Advance Directives Date on File: 04/09/21 service: No 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al status: employed 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: [employer]/ right hand dominant Cognitive needs: No Hearing needs: No Vision needs: Yes Review of Systems Const Reports chills, Reports fatigue, Reports fever(s), Denies headache(s) and Denies weakness ENT Details: See HPI Denies dizziness and Denies headache(s) Card Denies chest pain, Denies lightheadedness and Denies other (Palpitations) Resp Reports chest congestion, Reports cough, Denies wheezing and Denies other ( shortness of breath) Musc Denies numbness and Denies tingling Neuro Denies dizziness, Denies headache(s), Denies numbness, Denies tingling, Denies paresthesias and Denies weakness Psych Denies anxiety and Denies depression Endo Reports fatigue Aller/Immun Denies wheezing Physical Exam Vital Signs: Last Vital Signs Temp 98.8 F 02/04/25 09:07 Pulse 99 02/04/25 09:07 Resp 18 02/04/25 09:07 BP 122/68 02/04/25 09:07 Pulse Ox 96 02/04/25 09:07 Oxygen Delivery Method Room Air 10/11/25 09:07 BMI result Body Mass Index 41.5 Const General: no acute distress and well developed Nutritional Appearance: well nourished Orientation/consciousness: patient oriented x3 HEENT Other: Significant nasal congestion and erythema Posterior pharyngeal erythema without exudates Head: Yes normocephalic and Yes atraumatic Eyes General: appearance normal, both eyes and all related structures Pupils: Equal, round and reactive pupils present EOM: EOMs intact bilaterally Resp Other: No wheezing Coarse breath sounds with secretions sounds Wet, productive sounding cough Effort & Inspection: normal respiratory effort Auscultation: clear to auscultation bilaterally Cardio Rate: regular rate Rhythm: regular rhythm Heart sounds: S1 normal heart sound present, S2 normal heart sound present, no gallops, no murmurs and no rubs Neuro General: patient oriented x3 and gait normal Cranial nerves: Yes Equal, round and reactive pupils present Psych Affect: normal affect Assessment & Plan Assessment & Plan (1) Bronchitis: Code(s): J40 - Bronchitis, not specified as acute or chronic Plan: Start prednisone and Z-Rodrigo Increase hydration and get plenty of rest Can not rule out viral illness Sending nasal swab Orders: Orders SARS-CoV2/FLU/RSV Today B34.9 - Viral infection, unspecified Medications: New prednisone 40 mg (2 x 20 mg) PO DAILY 10 tabs 0RF 5 days Coding Level of Care Code Est Pt Level 3 (79266) Diagnoses Bronchitis J40
[2025-02-04 09:07] VITALS: BP 122/68; PULSE 99; RESP 18; TEMP 37.1; O2SAT 96; BMI 41.5
--- OUTSIDE RECORDS SUMMARY | 2025-02-04 09:07 | XMS_ITS | Clinical Summary ---
Author Organization [facility] Address [address] [place] [address] Phone Care Team Providers Care Key Punch Teacher Name Role Phone Thee Tay MD Primary Care Provider [phone] Social History Tobacco Use Types Packs/Day Years [...] [place] [id number] [facility] [employer] SolutionsHEALTH MCO [facility] MCO [facility] [employer] [facility] MCO HIDDENITELaureate Pharma [facility] MCO HIDDENITEJaba Technologies MCO Care Teams Key Punch Teacher Relationship Specialty Start Date End Date Thee Tay MD 1960 [facility] [address] [place] [address] PCP - General Internal Medicine 01/13/17 Additional Source Comments The information contained in this document represents components of the legal health record. It is not the complete legal health record.[facility]
--- OUTSIDE RECORDS SUMMARY | 2025-02-04 09:07 | XMS_ITS | Encounter Summary ---
Author Organization [facility] Address [address] [place] [address] Phone Care Team Providers Care Java Tech Name Role Phone Thee Tay MD Primary Care Provider [phone] Reason for Referral * Surgical (Within 1 month) - Closed Specialty Diagnoses / Procedures Referred By Carrie campos Referred To Contact oyster worker Diagnoses Temporomandibular joint disorder (TMJ) System, Provider Not In, PhD [address] [address] Phone: tel: Referral ID Status Reason Start Date Expiration Date Visits Re quested Visits Authorized [id number] Closed 01/14/2017 01/14/2018 1 1 Scheduling Instructions For dental clearance related to cardiac surgery, joint replacement surgery, oncologic care and organ transplantation please refer to Oral Medicine or Dentistry. Patients should present to appointment with any relavant office notes, imaging, and pathology results. Encounter Details Date Type Department Care Team (Latest Contact Info) Description 01/14/[address] [facility] Referral Management [address] [place] [address] Unknown, Unknown, Temporomandibular joint disorder (TMJ) (Primary [...] Associated Diagnoses Order Schedule Ambulatory referral to [facility]illof[facility] Surgery Outpatient Referral Routine Temporomandibular joint disorder (TMJ) Ordered: 01/14/2017 documented as of this encounter Visit Diagnoses Diagnosis Temporomandibular joint disorder (TMJ)- Primary documented in this encounter Care Teams Java Tech Relationship Specialty Start Date End Date Thee Tay MD [facility] [place] [address] PCP - General Internal Medicine 01/13/17 documented as of this encounter Additional Source Comments The information contained in this document represents components of the legal health record. It is not the complete legal health record.[facility]
--- OUTSIDE RECORDS SUMMARY | 2025-02-04 09:07 | XMS_ITS | Encounter Summary ---
Author Organization [facility] Address [address] [place] [address] Care Team Providers Care Door Opener Name Role Phone Braydon Sykes MD Primary Care Provider [phone] Encounter Details Date Type Department Care Team (Late st Contact Info) Description 06/03/2024 Lab Requisition [facility] - Main Lab [address] [facility] [address] Braydon Sykes MD [address] [place] [address] Encounter for other general examination Social History [...] Health LAB HEMETOLOGY METHOD 06/03/2024 11:27 AM [facility] LAB RBC 4.80 3.80 - 4.80 M/[facility] LAB HEMETOLOGY METHOD 06/03/2024 11:27 AM [facility] LAB Hemoglobin 12.8 11.5 - 16.0 g/dL LAB HEMETOLOGY METHOD 06/03/2024 11:27 AM [facility] LAB Hematocrit 39.8 35.0 - 47.0 % LAB HEMETOLOGY METHOD 06/03/2024 11:27 AM [facility] LAB MCV 82.2 79.0 - 98.0 FL LAB HEMETOLOGY METHOD 06/03/2024 11:27 AM [facility] LAB MCH 26.4(L) 27.0 - 32.0 pcg LAB HEMETOLOGY METHOD 06/03/2024 11:27 AM [facility] LAB MCHC 32.2 32.0 - 37.0 g/dL LAB HEMETOLOGY METHOD 06/03/2024 11:27 AM [facility] LAB RDW 14.2 11.0 - 15.0 % LAB HEMETOLOGY METHOD 06/03/2024 11:27 AM [facility] LAB Platelets 199 130 - 400 K/[facility] LAB HEMETOLOGY METHOD 06/03/2024 11:27 AM [facility] LAB MPV 10.8 7.0 - 11.0 FL LAB HEMETOLOGY METHOD 06/03/2024 11:27 AM [facility] LAB NRBC 0.0 <1.0 % LAB HEMETOLOGY METHOD 06/03/2024 11:27 AM [facility] LAB NRBC Absolute 0.00 <0.10 K/[facility] LAB HEMETOLOGY METHOD 06/03/2024 11:27 AM [facility] LAB Neutrophils Relative 64.3 % LAB HEMETOLOGY METHOD 06/03/2024 11:27 AM [facility] LAB Lymphocytes Relative 19.3 % LAB HEMETOLOGY METHOD 06/03/2024 11:27 AM [facility] Monocytes Relative 13.5 % LAB HEMETOLOGY METHOD 06/03/2024 11:27 AM [facility] LAB Eosinophils Relative 2.0 % LAB HEMETOLOGY METHOD 06/03/2024 11:27 AM [facility] LAB Basophils Relative 0.5 % LAB HEMETOLOGY METHOD 06/03/2024 11:27 AM [facility] LAB Immature Granulocytes Relative 0.4 % LAB HEMETOLOGY METHOD 06/03/2024 11:27 AM [facility] LAB Neutrophils Absolute 3.63 1.50 - 7.00 K/mcL LAB HEMETOLOGY METHOD 06/03/2024 11:27 AM [facility] LAB Lymphocytes Absolute 1.09 1.00 - 5.00 K/mcL LAB HEMETOLOGY METHOD 06/03/2024 11:27 AM [facility] LAB Monocytes Absolute 0.76 0.20 - 1.00 K/mcL LAB HEMETOLOGY METHOD 06/03/2024 11:27 AM [facility] LAB Eosinophils Absolute 0.11 0.00 - 0.50 K/mcL LAB HEMETOLOGY METHOD 06/03/2024 11:27 AM [facility] LAB Basophils Absolute 0.03 0.00 - 0.20 K/mcL LAB HEMETOLOGY METHOD 06/03/2024 11:27 AM [facility] LAB Immature Granulocytes Absolute 0.02 0.00 - 0.03 K/mcL LAB HEMETOLOGY METHOD 06/03/2024 11:27 AM [facility] LAB Blood Venous blood specimen / Unknown Venipuncture / Unknown 06/03/2024 6:18 AM EST 06/03/2024 10:27 AM EST Braydon Sykes MD LAB BLOOD ORDERABLES Final Res ult Performing Organization Address [facility]/ZIP Co de Phone Number [facility] [address] [place] [address], [place] [phone] * Magnesium (06/03/2024 6:18 AM EST) Pathologist [facility] Magnesium 2.3 1.9 - 2.6 mg/dL LAB CHEMISTRY METHOD 06/03/2024 11:57 AM EST [facility] Blood Venous blood specimen / Unknown Venipuncture / Unknown 06/03/2024 6:18 AM EST 06/03/2024 10:27 AM EST Braydon Sykes MD LAB BLOOD ORDERABLES Final Res ult Performing Organization Address [facility]/ZIP Co de Phone Number [facility] [address] [place] [address], [place] [phone] * (ABNORMAL) Comprehensive metabolic panel (06/03/2024 6:18 AM EST) [facility] Sodium 136 133 - 145 mmol/L LAB CHEMISTRY METHOD 06/03/2024 11:57 AM [facility] Potassium 4.1 3.5 - 5.5 mmol/L LAB CHEMISTRY METHOD 06/03/2024 11:57 AM [facility] LAB Chloride 104 96 - 110 mmol/L LAB CHEMISTRY METHOD 06/03/2024 11:57 AM [facility] LAB CO2 24 21 - 32 mmol/L LAB CHEMISTRY METHOD 06/03/2024 11:57 AM [facility] LAB Anion Gap 8 3 - 11 LAB CHEMISTRY METHOD 06/03/2024 11:57 AM [facility] LAB Glucose 83 70 - 100 mg/dL LAB CHEMISTRY METHOD 06/03/2024 11:57 AM [facility] BUN 14 5 - 25 mg/dL LAB CHEMISTRY METHOD 06/03/2024 11:57 AM [facility] LAB Creatinine 0.58 0.50 - 1.10 mg/dL LAB CHEMISTRY METHOD 06/03/2024 11:57 AM [facility] LAB eGFR 108 >=60 mL/min/1. 73m2 LAB CHEMISTRY METHOD 06/03/2024 11:57 AM [facility] LAB Comment:Calculation based on the Chronic Kidney Disease Epidemiology Collaboration (CKD-EPI) equation refit without adjustment for race. BUN/Creatinine Ratio 24.1 LAB CHEMISTRY METHOD 06/03/2024 11:57 AM [facility] LAB Calcium 9.1 8.5 - 10.5 mg/dL LAB CHEMISTRY METHOD 06/03/2024 11:57 AM [facility] LAB AST (SGOT) 36 10 - 42 unit/L LAB CHEMISTRY METHOD 06/03/2024 11:57 AM [facility] LAB ALT (SGPT) 43 10 - 60 unit/L LAB CHEMISTRY METHOD 06/03/2024 11:57 AM [facility] LAB Alkaline Phosphatase 148(H) 42 - 121 unit/L LAB CHEMISTRY METHOD 06/03/2024 11:57 AM [facility] LAB Total Protein 6.2 6.0 - 8.0 g/dL LAB CHEMISTRY METHOD 06/03/2024 11:57 AM [facility] LAB Albumin 3.5 3.2 - 5.0 g/dL LAB CHEMISTRY METHOD 06/03/2024 11:57 AM [facility] Total Bilirubin 0.2 0.0 - 1.4 mg/dL LAB CHEMISTRY METHOD 06/03/2024 11:57 AM [facility] Blood Venous blood specimen / Unknown Venipuncture / Unknown 06/03/2024 6:18 AM EST 06/03/2024 10:27 AM EST us Braydon Sykes MD LAB BLOOD ORDERABLES Final Res ult [facility] [address] [place] [address], documented in this encounter Visit Diagnoses Diagnosis Encounter for other general examination documented in this encounter Care Teams Door Opener Relationship Specialty Start Date End Date Braydon Sykes MD [address] [place] [phone] PCP - General Internal Medicine 06/03/24 documented as of this encounter
--- OUTSIDE RECORDS SUMMARY | 2025-02-04 09:08 | XMS_ITS | Clinical Summary ---
Author Organization [address] [facility] Address [address] [place] [address] Phone Care Team Providers Care Ham Doctor Name Role Phone Braydon Sykes MD Primary Care Provider [phone] Social History Tobacco Use Types Packs/Day Years [...] topic Insurance MEDICAID - [place] Care Teams Ham Doctor Relationship Specialty Start Date End Date Braydon Sykes MD [address] [place] [id number] PCP - General Internal Medicine 06/03/24
--- OUTSIDE RECORDS SUMMARY | 2025-02-04 09:08 | XMS_ITS | Encounter Summary ---
Author Organization [facility] Address [address] [place] [address] Care Team Providers Care Nut Cracker Name Role Phone Braydon Sykes MD Primary Care Provider [phone] Encounter Details Date Type Department Care Team (Late st Contact Info) Description 06/09/2024 Lab Requisition [facility] - Main Lab [address] [place] [address] Braydon Sykes MD [address] [place] [address] Encounter for other general examination Social History [...] AM EST) WBC 5.6 4.8 - 10.8 K/[facility] LAB HEMETOLOGY METHOD 06/09/2024 8:24 AM EST [facility] RBC 4.40 3.80 - 4.80 M/[facility] LAB HEMETOLOGY METHOD 06/09/2024 8:24 AM EST [facility] Hemoglobin 12.1 11.5 - 16.0 [...] Res ult [facility] [address] [place] [address], * Basic metabolic panel (06/09/2024 6:00 AM [...] [facility] Comment:Calculation based on the [...] LAB BLOOD ORDERABLES Final Res ult [facility] [address] [place] [address], documented in this encounter Visit Diagnoses Diagnosis Encounter for other general examination documented in this encounter Care Teams Nut Cracker Relationship Specialty Start Date End Date Braydon Sykes MD [address] [place] [phone] PCP - General Internal Medicine 06/03/24 documented as of this encounter
== END 2025-02-04 09:25 | disposition home or self-care (01) ==
PROVIDERS: PCP Internal Medicine; Visit Provider Family Medicine
DX: J40 Bronchitis, not specified as acute or chronic (principal)

== ENCOUNTER 2025-03-02 08:15 | Outpatient (AMB) | payer OTHER, SELFPAY ==
--- OUTSIDE RECORDS SUMMARY | 2025-03-02 08:35 | XMS_ITS | Clinical Summary ---
Author Organization [facility] Address [address] [place] [address] Phone Care Team Providers Care Inspector Cold Working Name Role Phone Thee Tay MD Primary Care Provider [phone] Social History Tobacco Use Types Packs/Day Years [...] [place] [id number] [facility] [employer] Crowd PlayLA[facility]HE[facility] MCO [facility] Free Automotive Training [facility] Spiral Genetics[facility] MCO [employer]ONE[employer]DE[employer] Services [facility] MCO [employer] Care Teams Inspector Cold Working Relationship Specialty Start Date End Date Thee Tay MD [address] [facility] [address] [place] [address] PCP - General Internal Medicine 01/13/17 Additional Source Comments The information contained in this document represents components of the legal health record. It is not the complete legal health record.[facility]
--- OUTSIDE RECORDS SUMMARY | 2025-03-02 08:35 | XMS_ITS | Encounter Summary ---
Author Organization [facility] Address [address] [place] [address] Care Team Providers Care Motor Transport Inspector Name Role Phone Braydon Sykes MD Primary Care Provider [phone] Encounter Details Date Type Department Care Team (Late st Contact Info) Description 06/03/2024 Lab Requisition [facility] - Main Lab [address] [facility] [employer] [address] Braydon Sykes MD [address] [place] [phone] Encounter for other general examination Social History [...] AM EST) WBC 5.6 4.8 - 10.8 K/[facility] LAB HEMETOLOGY METHOD 06/03/2024 11:27 AM [facility] LAB RBC 4.80 3.80 - 4.80 M/[facility] LAB HEMETOLOGY METHOD 06/03/2024 11:27 AM [facility] LAB Hemoglobin 12.8 11.5 - 16.0 g/dL LAB HEMETOLOGY METHOD 06/03/2024 11:27 AM [facility] LAB Hematocrit 39.8 35.0 - 47.0 % LAB HEMETOLOGY METHOD 06/03/2024 11:27 AM [facility] LAB MCV 82.2 79.0 - 98.0 FL LAB HEMETOLOGY METHOD 06/03/2024 11:27 AM [facility] LAB MCH 26.4(L) 27.0 - 32.0 pcg LAB HEMETOLOGY METHOD 06/03/2024 11:27 AM [facility] LAB MCHC 32.2 32.0 - 37.0 g/dL LAB HEMETOLOGY METHOD 06/03/2024 11:27 AM [facility] LAB RDW 14.2 11.0 - 15.0 % LAB HEMETOLOGY METHOD 06/03/2024 11:27 AM [facility] LAB Platelets 199 130 - 400 K/[facility] LAB HEMETOLOGY METHOD 06/03/2024 11:27 AM [facility] LAB MPV 10.8 7.0 - 11.0 FL LAB HEMETOLOGY METHOD 06/03/2024 11:27 AM [facility] LAB NRBC 0.0 <1.0 % LAB HEMETOLOGY METHOD 06/03/2024 11:27 AM [facility] LAB NRBC Absolute 0.00 <0.10 K/[facility] LAB HEMETOLOGY METHOD 06/03/2024 11:27 AM [facility] LAB Neutrophils Relative 64.3 % LAB HEMETOLOGY METHOD 06/03/2024 11:27 AM [facility] LAB Lymphocytes Relative 19.3 % LAB HEMETOLOGY METHOD 06/03/2024 11:27 AM [facility] LAB Monocytes Relative 13.5 % LAB HEMETOLOGY METHOD 06/03/2024 11:27 AM [facility] LAB Eosinophils Relative 2.0 % LAB HEMETOLOGY METHOD 06/03/2024 11:27 AM [facility] LAB Basophils Relative 0.5 % LAB HEMETOLOGY METHOD 06/03/2024 11:27 AM [facility] LAB Immature Granulocytes Relative 0.4 % LAB HEMETOLOGY METHOD 06/03/2024 11:27 AM [facility] LAB Neutrophils Absolute 3.63 1.50 - 7.00 K/mcL LAB HEMETOLOGY METHOD 06/03/2024 11:27 AM [facility] LAB Lymphocytes Absolute 1.09 1.00 - 5.00 K/mcL LAB HEMETOLOGY METHOD 06/03/2024 11:27 AM [facility] LAB Monocytes Absolute 0.76 0.20 - 1.00 K/mcL LAB HEMETOLOGY METHOD 06/03/2024 11:27 AM [facility] LAB Eosinophils Absolute 0.11 0.00 - 0.50 K/mcL LAB HEMETOLOGY METHOD 06/03/2024 11:27 AM [facility] LAB Basophils Absolute 0.03 0.00 - 0.20 K/mcL LAB HEMETOLOGY METHOD 06/03/2024 11:27 AM [facility] LAB Immature Granulocytes Absolute 0.02 0.00 - 0.03 K/mcL LAB HEMETOLOGY METHOD 06/03/2024 11:27 AM [facility] LAB Blood Venous blood specimen / Unknown Venipuncture / Unknown 06/03/2024 6:18 AM EST 06/03/2024 10:27 AM EST Braydon Sykes MD LAB BLOOD ORDERABLES Final Res ult Performing Organization Address [facility]/ZIP Co de Phone Number [facility] [address] [place] [address], [place] [phone] * Magnesium (06/03/2024 6:18 AM EST) Pathologist [facility] Magnesium 2.3 1.9 - 2.6 mg/dL LAB CHEMISTRY METHOD 06/03/2024 11:57 AM EST [facility] Blood Venous blood specimen / Unknown Venipuncture / Unknown 06/03/2024 6:18 AM EST 06/03/2024 10:27 AM EST Braydon Sykes MD LAB BLOOD ORDERABLES Final Res ult Performing Organization Address [facility]/ZIP Co de Phone Number [facility] [address] [place] [address], [place] [phone] * (ABNORMAL) Comprehensive metabolic panel (06/03/2024 6:18 AM EST) [facility] Sodium 136 133 - 145 mmol/L LAB CHEMISTRY METHOD 06/03/2024 11:57 AM [facility] Potassium 4.1 3.5 - 5.5 mmol/L LAB CHEMISTRY METHOD 06/03/2024 11:57 AM [facility] Chloride 104 96 - 110 mmol/L LAB CHEMISTRY METHOD 06/03/2024 11:57 AM [facility] LAB CO2 24 21 - 32 mmol/L LAB CHEMISTRY METHOD 06/03/2024 11:57 AM [facility] LAB Anion Gap 8 3 - 11 LAB CHEMISTRY METHOD 06/03/2024 11:57 AM [facility] LAB Glucose 83 70 - 100 mg/dL LAB CHEMISTRY METHOD 06/03/2024 11:57 AM [facility] BUN 14 5 - 25 mg/dL LAB CHEMISTRY METHOD 06/03/2024 11:57 AM [facility] LAB Creatinine 0.58 0.50 - 1.10 mg/dL LAB CHEMISTRY METHOD 06/03/2024 11:57 AM [facility] LAB eGFR 108 >=60 mL/min/1. 73m2 LAB CHEMISTRY METHOD 06/03/2024 11:57 AM [facility] LAB Comment:Calculation based on the Chronic Kidney Disease Epidemiology Collaboration (CKD-EPI) equation refit without adjustment for race. BUN/Creatinine Ratio 24.1 LAB CHEMISTRY METHOD 06/03/2024 11:57 AM [facility] LAB Calcium 9.1 8.5 - 10.5 mg/dL LAB CHEMISTRY METHOD 06/03/2024 11:57 AM [facility] LAB AST (SGOT) 36 10 - 42 unit/L LAB CHEMISTRY METHOD 06/03/2024 11:57 AM [facility] ALT (SGPT) 43 10 - 60 unit/L LAB CHEMISTRY METHOD 06/03/2024 11:57 AM [facility] LAB Alkaline Phosphatase 148(H) 42 - 121 unit/L LAB CHEMISTRY METHOD 06/03/2024 11:57 AM [facility] Total Protein 6.2 6.0 - 8.0 g/dL LAB CHEMISTRY METHOD 06/03/2024 11:57 AM [facility] Albumin 3.5 3.2 - 5.0 g/dL LAB CHEMISTRY METHOD 06/03/2024 11:57 AM [facility] Total Bilirubin 0.2 0.0 - 1.4 mg/dL LAB CHEMISTRY METHOD 06/03/2024 11:57 AM [facility] Blood Venous blood specimen / Unknown Venipuncture / Unknown 06/03/2024 6:18 AM EST 06/03/2024 10:27 AM EST us Braydon Sykes MD LAB BLOOD ORDERABLES Final Res ult [facility] [address] [place] [address], documented in this encounter Visit Diagnoses Diagnosis Encounter for other general examination documented in this encounter Care Teams Motor Transport Inspector Relationship Specialty Start Date End Date Braydon Sykes MD [address] [place] [address] PCP - General Internal Medicine 06/03/24 documented as of this encounter
--- OUTSIDE RECORDS SUMMARY | 2025-03-02 08:36 | XMS_ITS | Clinical Summary ---
Author Organization 299 [facility] Address [address] [place] [address] Phone Care Team Providers Care Transporter Radiology Name Role Phone Braydon Sykes MD Primary Care Provider [phone] Social History Tobacco Use Types Packs/Day Years [...] topic Insurance MEDICAID - [place] Care Teams Transporter Radiology Relationship Specialty Start Date End Date Braydon Sykes MD [address] [place] [phone] PCP - General Internal Medicine 06/03/24
--- OUTSIDE RECORDS SUMMARY | 2025-03-02 08:36 | XMS_ITS | Encounter Summary ---
Author Organization [facility] Address [address] [place] [address] Care Team Providers Care Special Education Teacher Name Role Phone Braydon Sykes MD Primary Care Provider [phone] Encounter Details Date Type Department Care Team (Late st Contact Info) Description 06/09/2024 Lab Requisition [facility] - Main Lab [address] [place] [address] Braydon Sykes MD [address] [place] [address] Encounter for other general examination Social History [...] AM EST) WBC 5.6 4.8 - 10.8 K/[facility] LAB HEMETOLOGY METHOD 06/09/2024 8:24 AM EST [facility] LAB RBC 4.40 3.80 - 4.80 M/[facility] LAB HEMETOLOGY METHOD 06/09/2024 8:24 AM EST [facility] LAB Hemoglobin 12.1 11.5 - 16.0 g/dL LAB HEMETOLOGY METHOD 06/09/2024 8:24 AM [facility] LAB Hematocrit 39.2 35.0 - 47.0 % LAB HEMETOLOGY METHOD 06/09/2024 8:24 AM [facility] LAB MCV 89.9 79.0 - 98.0 FL LAB HEMETOLOGY METHOD 06/09/2024 8:24 AM [facility] LAB MCH 27.8 27.0 - 32.0 pcg LAB HEMETOLOGY METHOD 06/09/2024 8:24 AM [facility] LAB MCHC 30.9(L) 32.0 - 37.0 g/dL LAB HEMETOLOGY METHOD 06/09/2024 8:24 AM [facility] LAB RDW 14.8 11.0 - 15.0 % LAB HEMETOLOGY METHOD 06/09/2024 8:24 AM [facility] LAB Platelets 245 130 - 400 K/mcL LAB HEMETOLOGY METHOD 06/09/2024 8:24 AM [facility] LAB MPV 10.5 7.0 - 11.0 FL LAB HEMETOLOGY METHOD 06/09/2024 8:24 AM [facility] LAB NRBC 0.5 <1.0 % LAB HEMETOLOGY METHOD 06/09/2024 8:24 AM [facility] LAB NRBC Absolute 0.03 <0.10 K/mcL LAB HEMETOLOGY METHOD 06/09/2024 8:24 AM [facility] LAB Blood Venous blood specimen / Unknown Venipuncture / Unknown 06/09/2024 6:00 AM EST 06/09/2024 7:30 AM EST us Braydon Sykes MD LAB BLOOD ORDERABLES Final Res ult [facility] [address] [place] [address], * Basic metabolic panel (06/09/2024 6:00 AM EST) Sodium 136 133 - 145 mmol/L LAB CHEMISTRY METHOD 06/09/2024 8:20 AM [facility] Potassium 4.4 3.5 - 5.5 mmol/L LAB CHEMISTRY METHOD 06/09/2024 8:20 AM [facility] Chloride 105 96 - 110 mmol/L LAB CHEMISTRY METHOD 06/09/2024 8:20 AM [facility] CO2 22 21 - 32 mmol/L LAB CHEMISTRY METHOD 06/09/2024 8:20 AM [facility] LAB Anion Gap 9 3 - 11 LAB CHEMISTRY METHOD 06/09/2024 8:20 AM [facility] LAB Glucose 74 70 - 100 mg/dL LAB CHEMISTRY METHOD 06/09/2024 8:20 AM [facility] BUN 14 5 - 25 mg/dL LAB CHEMISTRY METHOD 06/09/2024 8:20 AM [facility] Creatinine 0.65 0.50 - 1.10 mg/dL LAB CHEMISTRY METHOD 06/09/2024 8:20 AM [facility] LAB eGFR 105 >=60 mL/min/1. 73m2 LAB CHEMISTRY METHOD 06/09/2024 8:20 AM [facility] LAB Comment:Calculation based on the Chronic Kidney Disease Epidemiology Collaboration (CKD-EPI) equation refit without adjustment for race. BUN/Creatinine Ratio 21.5 LAB CHEMISTRY METHOD 06/09/2024 8:20 AM [facility] LAB Calcium 9.0 8.5 - 10.5 mg/dL LAB CHEMISTRY METHOD 06/09/2024 8:20 AM [facility] LAB Blood Venous blood specimen / Unknown Venipuncture / Unknown 06/09/2024 6:00 AM EST 06/09/2024 7:30 AM EST us Braydon Sykes MD LAB BLOOD ORDERABLES Final Res ult [facility] ([facility] [address] [place] [address], documented in this encounter Visit Diagnoses Diagnosis Encounter for other general examination documented in this encounter Care Teams Special Education Teacher Relationship Specialty Start Date End Date Braydon Sykes MD [address] [place] [phone] PCP - General Internal Medicine 06/03/24 documented as of this encounter
--- OUTSIDE RECORDS SUMMARY | 2025-03-02 08:36 | XMS_ITS | Encounter Summary ---
Author Organization [facility] Address [address] [place] [phone] Phone Care Team Providers Care Comfort Filler Name Role Phone Thee Tay MD Primary Care Provider [phone] Reason for Referral * Surgical (Within 1 month) - Closed Specialty Diagnoses / Procedures Referred By Carrie campos Referred To Contact campus aide Diagnoses Temporomandibular joint disorder (TMJ) System, Provider Not In, PhD [address] [address] Phone: tel: Referral ID Status Reason Start Date Expiration Date Visits Re quested Visits Authorized [id number] Closed 01/14/2017 01/14/2018 1 1 Scheduling Instructions For dental clearance related to cardiac surgery, joint replacement surgery, oncologic care and organ transplantation please refer to Oral Medicine or Dentistry. Patients should present to appointment with any relavant office notes, imaging, and pathology results. Encounter Details Date Type Department Care Team (Latest Contact Info) Description 01/14/2017 Transcribe Orders [facility] Referral Management [address] [place] [id number] Unknown, Unknown, Temporomandibular joint disorder (TMJ) (Primary [...] Associated Diagnoses Order Schedule Ambulatory referral to [facility]illof[facility] Surgery Outpatient Referral Routine Temporomandibular joint disorder (TMJ) Ordered: 01/14/2017 documented as of this encounter Visit Diagnoses Diagnosis Temporomandibular joint disorder (TMJ)- Primary documented in this encounter Care Teams Comfort Filler Relationship Specialty Start Date End Date Thee Tay MD [facility] [place] [address] PCP - General Internal Medicine 01/13/17 documented as of this encounter Additional Source Comments The information contained in this document represents components of the legal health record. It is not the complete legal health record.[facility]
[2025-03-02 08:58] VITALS: BP 108/72; PULSE 89; BMI 42.3
--- NOTE | 2025-03-02 08:58 | A.OFFVIS_ITS ---
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 Allergies niacin (Niaspan Extended-Release) Allergy (Intermediate, Verified 03/02/25 11:15) skin blisters tramadol Allergy (Intermediate, Verified 03/02/25 11:15) seizures barley (BARLEY) Allergy (Unknown, Verified 03/02/25 11:15) UNKNOWN fluticasone (Advair Diskus) Allergy (Unknown, Verified 03/02/25 11:15) Shortness of Breath ibuprofen Allergy (Unknown, Verified 03/02/25 11:15) Swelling naratriptan Allergy (Unknown, Verified 03/02/25 11:15) unknown Penicillins (PENICILLINS) Allergy (Unknown, Verified 03/02/25 11:15) Unknown sumatriptan Allergy (Unknown, Verified 03/02/25 11:15) unknown trazodone (TRAZODONE) Allergy (Unknown, Verified 03/02/25 11:15) UNKNOWN omalizumab (From Xolair) Adverse Reaction (Severe, Verified 03/02/25 11:15) Anaphylaxis rubber, unspecified Adverse Reaction (Severe, Verified 03/02/25 11:15) Unknown equate cough drops sugar free Allergy (Mild, Uncoded 03/02/25 09:02) Unknown silicone Adverse Reaction (Severe, Uncoded 03/02/25 09:02) Unknown vaseline Adverse Reaction (Severe, Uncoded 03/02/25 09:02) hives Medication List - Last Reconciled 03/02/25 by ABBY JohnsonC acetaminophen 1,000 mg PO Q6H PRN albuterol sulfate 90 mcg/actuation (Ventolin HFA) 2 puffs inhalation Q4H PRN aspirin 81 mg PO DAILY [Blood pressure monitor As directed] bupropion HCl SR 300 mg PO DAILY celecoxib 200 mg PO DAILY PRN clonidine HCl 0.1 mg PO DAILY PRN cyclobenzaprine 5 mg PO ONCE PRN dexlansoprazole (Dexilant) 60 mg PO DAILY 30 days duloxetine 20 mg PO BEDTIME duloxetine 30 mg PO BEDTIME dupilumab (Dupixent) 300 mg (2 mL) subcut Q2W 28 days [fall detection monitor As directed] famotidine (Pepcid) 40 mg PO BEDTIME fluticasone propion-salmeterol 230-21 mcg/actuation (Advair HFA) 2 puffs inhalation Q12H fluticasone propionate 50 mcg/actuation (Flonase Allergy Relief) 2 sprays intranasal BID PRN ipratropium-albuterol 0.5 mg-3 mg(2.5 mg base)/3 mL 3 mL inhalation Q4-6H PRN 30 days levothyroxine 150 mcg PO DAILY@0600 lisinopril 5 mg PO DAILY loratadine 10 mg PO DAILY 30 days lorazepam 1 mg PO DAILY PRN melatonin 5 mg PO BEDTIME montelukast 10 mg PO BEDTIME [id number] carb-vit K 18 mg-400 mcg- 500 mg-50 mcg (Women's Multivitamin) 1 tab PO DAILY oxcarbazepine 150 mg PO ONCE topiramate 25 mg PO BID HPI HPI 6 mth f/up: Details: Berenice is a 55 yo female with PMH of obesity, PTSD, smoking, GERD, asthma, PFO, hypertension, complicated migraine with left-sided weakness, who was recently admitted to [facility] with viral type illness, colitis, sepsis and found to have mildly elevated troponins. Prior to her admission she had 2 episodes of syncope at home with coughing. She now presents for follow-up. Today she reports that she has been having fatigue since her hospital discharge. She no longer has coughing and no significant shortness of breath, PND, orthopnea or edema. Asthma has been stable. No heart palpitations, lightheadedness, presyncope, recurrent syncope. No chest discomfort at rest or with activity. She is mostly sedentary. Taking meds as directed. [facility] Medical History Colon cancer screening Hospital discharge follow-up Other specified hypothyroidism Left sided abdominal pain Influenza A H1N1 infection Stool incontinence Shoulder pain Anemia Bronchitis due to COVID-19 virus COVID Acute pneumonia Work related injury Acute diarrhea Paresthesias in left hand Dysuria PFO (patent foramen ovale) Shortness of breath Community acquired pneumonia Chronic idiopathic constipation Pre-op examination Encounter for routine gynecological examination LFT elevation Encounter for general adult medical examination with abnormal findings Respiratory tract congestion with cough Hospital discharge follow-up COVID-19 Tracheobronchitis COVID-19 Iron deficiency anemia Shoulder pain, right Nausea and vomiting PFO (patent foramen ovale) History of transesophageal echocardiography (LAN) Colitis Abnormal angiogram of head COVID-19 Asthma Thyroid disease GERD (gastroesophageal reflux disease) Anemia Aneurysm Surgical History History of surgery of uterus H/O endoscopy History of H/O brain surgery History of colonoscopy Family History Father Diabetes Arthritis Diverticulitis Leukemia Mental health disorder Lung cancer Mother Anemia Arthritis Colon polyps Myocardial infarction Brother Crohn's disease Testicular cancer Brother Cancer Paternal Grandfather Leukemia Other Substance use disorder Social History Household Members: Spouse and Children Household Members Other:: boyfriend and his son Housing: House Are you a primary lawn care technician to a significant other at home: No Do you presently have visiting nurse or other home services: No Alcohol intake: former Comment: Refuses fall risk alarms, ambulates with steady gait. Patient Tobacco Use Status: Former Tobacco user Tobacco use type: Cigarette Cigarettes Per Day: 10 e-Cigarette/Vaping Use: Never Used Second Hand Smoke Exposure: No Substance Use Type: Marijuana Advance Directives Date on File: 04/09/21 service: No 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al status: employed 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: [employer]/ right hand dominant Cognitive needs: No Hearing needs: No Vision needs: Yes Review of Systems Const All systems reviewed & are unremarkable except as noted in HPI and below Reports fatigue ENT Denies dizziness Card Details: Intermittent cough Denies chest pain, Denies chest pain at rest, Denies chest pain with activity, Denies rapid heart rate, Denies pedal edema, Denies edema, Denies leg edema, Denies lightheadedness, Denies palpitations, Reports dyspnea, Denies dyspnea on exertion and Denies orthopnea Resp Denies cough, Reports dyspnea and Denies dyspnea on exertion GI Denies hematochezia and Denies change in stool character Musc Denies abnormal gait, Reports limited range of motion, Denies muscle cramps, Denies muscle weakness, Denies numbness, Denies radiating pain into limb, Denies stiffness and Denies tingling Neuro Denies abnormal gait, Denies dizziness, Denies numbness and Denies tingling Endo Reports fatigue and Denies palpitations Physical Exam Vital Signs: Last Vital Signs Pulse 89 03/02/25 08:58 BP 108/72 03/02/25 08:58 BMI result Body Mass Index 42.3 Const General: cooperative, comfortable and no acute distress Orientation/consciousness: patient oriented x3 Neck Neck: Yes normal visual inspection Resp Effort & Inspection: normal respiratory effort Auscultation: clear to auscultation bilaterally, no rales, no rhonchi and no wheezes Cardio Rate: regular rate Rhythm: regular rhythm Heart sounds: S1 normal heart sound present, S2 normal heart sound present, no murmurs and no rubs Neuro General: patient oriented x3 Extrem General: Yes normal to inspection and No no pedal edema Psych Appearance: grossly normal Mental Status: mental status grossly normal Results Reviewed Results Reviewed: - Holter monitorb 08/23/2024: Sinus rhythm, rare supraventricular ectopy, no pauses or high-grade AV blocks - Echocardiogram 08/23/2024: Ejection fraction 63%, no valve abnormalities, no regional wall motion abnormalities Assessment & Plan Assessment & Plan (1) Elevated troponin: Code(s): R77.8 - Other specified abnormalities of plasma proteins Category: Medical Plan: Troponin elevation during recent [facility] admission with viral illness, colitis and sepsis. Troponin up to 32.8. EKG nonischemic. No known history of CAD and no anginal symptoms. Cardiac risk factors of morbid obesity, hypertension, smoking. Last echo had shown normal EF and normal wall motion. Will check a exercise nuclear stress test to assess for ischemia. Troponin elevation was most likely related to illness with sepsis. (2) Syncope: Code(s): R55 - Syncope and collapse Category: Medical Plan: Report of 2 syncopal events prior to recent hospital admission in the setting of coughing. No mention of arrhythmia during hospital admission. EF normal on last echo. Will check Holter monitor to reassess for arrhythmia. Her syncope was most likely tussive syncope. Reviewed this with her. (3) Hospital discharge follow-up: Code(s): Z09 - Encounter for follow-up examination after completed treatment for conditions other than malignant neoplasm Category: Medical Plan: Hospital discharge summary notes reviewed (4) Complicated migraine: Code(s): G43.109 - Migraine with aura, not intractable, without status migrainosus Category: Medical Plan: Prior [facility] admit for left weakness which has since improved. CT, CTA and MRI brain did not show evidence of acute infarct. The MRI did show mild small vessel ischemic changes. Her symptoms were thought to be related to complex migraine, seizure disorder. Follow-up echocardiogram and Holter monitor were completed and showed no significant abnormalities. (5) PFO (patent foramen ovale): Code(s): Q21.12 - Patent foramen ovale Category: Medical Plan: LAN done 2022 for evaluation showing small PFO. Most Recent echo did not mentioning PFO. Continue taking aspirin 81 mg daily. (6) Labile hypertension: Code(s): R09.89 - Other specified symptoms and signs involving the circulatory and respiratory systems Category: Medical Plan: BP goal < 130/80. Well controlled at this time. No med changes made. Plan I discussed with the patient the need for further cardiac evaluation due to the troponin leak observed during her recent hospitalization. We discussed her syncope during coughing events.We plan to conduct a heart monitor test and a nuclear stress test to ensure her heart is functioning properly and to assess the risk of myocardial infarction. I advised her to bring her asthma inhaler for the stress test and explained the scheduling process for these tests. Orders: Orders ECG 3 day holter monitor Today PAMELA Johnson R55 - Syncope and collapse CA stress test Today PAMELA Johnson R77.8 - Other specified abnormalities of plasma proteins, R94.31 - Abnormal electrocardiogram [ECG] [EKG] NM cardiolite stress test Today PAMELA Johnson R77.8 - Other specified abnormalities of plasma proteins, R94.31 - Abnormal electrocardiogram [ECG] [EKG] Medications: Changed From oxcarbazepine 150 mg PO BID 6 tabs 0RF To oxcarbazepine 150 mg PO ONCE DAVID Thakkar Patient Instructions: - Use your asthma inhaler as needed, especially before the stress test. - Expect a call from centralized scheduling to set up your heart monitor and nuclear stress test. - Follow up with any new or worsening symptoms, especially related to breathing or chest pain. Patient was informed and verbally consented to the use of an ambient scribe for clinic note documentation during this visit. Visit time spent on chart review, interview, assessment, orders, documentation. Coding Level of Care Code Est Pt Level 4 (94651) Complex EM visit Add On G2211 Diagnoses Elevated troponin R77.8 Syncope R55 Hospital discharge follow-up Z09 Complicated migraine G43.109 PFO (patent foramen ovale) Q21.12 Labile hypertension R09.89 Time Spent (min) 30
== END 2025-03-02 09:35 | disposition home or self-care (01) ==
LOC: HO.HCS 08:16
PROVIDERS: PCP Internal Medicine; Visit Provider Nurse Practitioner Family
DX: R77.8 Other specified abnormalities of plasma proteins (principal); R55 Syncope and collapse; Z09 Encounter for follow-up examination after completed treatment for conditions other than malignant neoplasm; G43.109 Migraine with aura, not intractable, without status migrainosus; Q21.12 Patent foramen ovale; R09.89 Other specified symptoms and signs involving the circulatory and respiratory systems
CPT/HCPCS: 99214

== ENCOUNTER 2025-03-02 08:15 | Outpatient (REF) | payer OTHER, SELFPAY ==
[2025-03-02 12:32] LABS: MANUAL DIFF FLAG NO
[2025-03-02 12:49] LABS: Hematocrit 38.2 % (37.0-47.0); Hemoglobin 12.5 g/dl (12.0-16.0); Imm Gran Abs Auto 0.02 X10*3/uL (0.00-0.03); Imm Gran Pct Auto 0.3 % (0.0-0.4); Lymphocytes Absolute Auto 1.9 X10*3/uL (1.2-4.9); Mean Corpuscular HGB Conc 32.7 g/dl (31.0-35.0); Mean Corpuscular Hemoglobin 26.9 pg (27.0-33.0); Mean Corpuscular Volume 82.2 fL (80.0-98.0); NRBC Abs Auto 0.000 X10*3/uL (0.0-0.012); NRBC Pct Auto 0.0 /100WBC (0.0-0.2); Platelet Count 279 X10*3/uL (160-400); Red Blood Count 4.65 X10*6/uL (4.20-5.50); White Blood Count 7.3 X10*3/uL (4.8-10.8)
[2025-03-02 13:53] LABS: Alanine Aminotransferase 14 U/L (0-31); Albumin Level 4.1 g/dL (3.5-5.0); Alkaline Phosphatase 144 U/L (39-117); Anion Gap 12 (12-20); Aspartate Amino Transferase 15 U/L (5-31); Blood Urea Nitrogen 12 mg/dL (9-16); Calcium 9.0 mg/dL (8.4-10.2); Carbon Dioxide 22 mmol/L (22-29); Chloride 106 mmol/L (96-108); Estimated Glomerular Filt Rate > 60; Potassium 3.8 mmol/L (3.3-5.1); Sodium 136 mmol/L (135-145); Total Protein 6.4 g/dL (6.5-8.0)
[2025-03-03 19:54] LABS: Transglutaminase Ab IgG <1.0 U/mL
[2025-03-07 18:44] LABS: Class Almond 0; Class Brazil Nut 0; Class Cashew 0; Class Codfish 0; Class Cow's Milk 0; Class Egg white 0; Class Hazelnut 0; Class Macadamia Nut 0; Class Peanut 0; Class Salmon 0; Class Scallop 0; Class Sesame Seed 0; Class Shrimp 0; Class Soybean 0; Class Tuna 0; Class Walnut 0; Class Wheat 0; F345-IgE Macadmia Nut <0.10 kU/L
== END 2025-03-02 08:16 | disposition home or self-care (01) ==
LOC: HO.LAB 08:15
PROVIDERS: Absent Provider Nurse Practitioner; PCP Internal Medicine; Visit Provider Nurse Practitioner Family
DX: K21.9 Gastro-esophageal reflux disease without esophagitis (principal); K80.20 Calculus of gallbladder without cholecystitis without obstruction; K64.9 Unspecified hemorrhoids; K52.9 Noninfective gastroenteritis and colitis, unspecified; G43.109 Migraine with aura, not intractable, without status migrainosus; R77.8 Other specified abnormalities of plasma proteins; R55 Syncope and collapse; R09.89 Other specified symptoms and signs involving the circulatory and respiratory systems; R74.8 Abnormal levels of other serum enzymes; Q21.12 Patent foramen ovale; Z09 Encounter for follow-up examination after completed treatment for conditions other than malignant neoplasm; Z79.82 Long term (current) use of aspirin; Z87.891 Personal history of nicotine dependence
CPT/HCPCS: 36415; 80053; 83605; 84075; 85025; 86003; 86140; 86364; 99212

== ENCOUNTER 2025-03-02 09:38 | Outpatient (AMB) | payer OTHER, SELFPAY ==
--- NOTE | 2025-03-02 10:02 | A.OFFVIS_ITS ---
Vital Signs 03/02/25 11:07 Height 5 ft 4 in Weight 246 lb BMI 42.2 BP 126/82 Blood Pressure Location Rt brachial Position Sitting Pulse 86 Intake Visit [place] [facility] [place] Intake Note: Berenice presents to in office follow up of GERD CC: Patient reports that she continues to have cough from what she believes is GERD. She states that her diverticulitis came back a couple times . Patient states that she feels like she has something in caught in her throat and sometimes chokes and vomit. She also reports rectal bleeding with blood clots after a BM a couple days ago. She also reports constipation alternating with diarrhea. She also reports that she feel like she is choking on hair and some food smells make her gag. Asset Protection Agent Required: No Accompanied by: Self / Same As Patient Allergies niacin (Niaspan Extended-Release) Allergy (Intermediate, Verified 03/21/25 10:36) skin blisters tramadol Allergy (Intermediate, Verified 03/21/25 10:36) seizures barley (BARLEY) Allergy (Unknown, Verified 03/21/25 10:36) UNKNOWN fluticasone (Advair Diskus) Allergy (Unknown, Verified 03/21/25 10:36) Shortness of Breath ibuprofen Allergy (Unknown, Verified 03/21/25 10:36) Swelling naratriptan Allergy (Unknown, Verified 03/21/25 10:36) unknown Penicillins (PENICILLINS) Allergy (Unknown, Verified 03/21/25 10:36) Unknown sumatriptan Allergy (Unknown, Verified 03/21/25 10:36) unknown trazodone (TRAZODONE) Allergy (Unknown, Verified 03/21/25 10:36) UNKNOWN omalizumab (From Xolair) Adverse Reaction (Severe, Verified 03/21/25 10:36) Anaphylaxis rubber, unspecified Adverse Reaction (Severe, Verified 03/21/25 10:36) Unknown equate cough drops sugar free Allergy (Mild, Uncoded 03/21/25 10:36) Unknown silicone Adverse Reaction (Severe, Uncoded 03/21/25 10:36) Unknown vaseline Adverse Reaction (Severe, Uncoded 03/21/25 10:36) hives HPI [place] [facility] [place]: Details: Assessment & Plan (1) GERD (gastroesophageal reflux disease): Code(s): K21.9 - Gastro-esophageal reflux disease without esophagitis Category: Medical Qualifiers: Esophagitis presence: without esophagitis Qualified Code(s): K21.9 - Gastro-esophageal reflux disease without esophagitis (2) Chronic idiopathic constipation: Code(s): K59.04 - Chronic idiopathic constipation Category: Medical (3) Esophagitis: Code(s): K20.90 - Esophagitis, unspecified without bleeding Category: Medical (4) Morbid obesity: Code(s): E66.01 - Morbid (severe) obesity due to excess calories Category: Medical Plan She has really been struggling with her asthma and allergies so bad that she could not leave the house for most of the summer and had to reschedule her appt. She is having more trouble overnight with coughing that causes nausea. She asks if we can increase her Dexilant, but she is at the max dose. I will add famotidine qhs as this also has an antihistamine effect to try to determine if it is GERD or asthma. Could be a little of both. She had a new health problem, she had a severe hemicranial migraine followed by some abnormalities in her gait and then presented to the hospital for possible stroke. She was then stent to a stroke hospital because the workup was unclear as to whether it was an ischemic event or a migrainous seizure. She did actually have a physical seizure at that time. She will be following with Neurology. Her bowels have calmed down and she is having normal BMs now. She has not needed the sucralfate, and she continues on Dexilant and. She requests a referral to weight management because she has gained quite a bit of weight with her hospitalization knife provided this and the phone number. Return office visit in 6 months or sooner depending on her response to the famotidine Orders: Referrals Medical Weight Management Referral E66.01 - Morbid (severe) obesity due to excess calories, K20.90 - Esophagitis, unspecified without bleeding Medications: New famotidine (Pepcid) 40 mg PO BEDTIME 30 tabs 6RF K20.90 - Esophagitis, unspecified without bleeding simethicone after meals 180 mg PO QID 300 caps 3RF 30 days Refilled dexlansoprazole (Dexilant) 60 mg PO DAILY 90 caps 0RF K21.9 - Gastro-esophageal reflux disease without esophagitis DISCHARGE SUMMARY 01/19/2025 Hospital Course Hospital Course: from initial hpi: 55-year-old female with a past medical history of history of HLD, eosinophilic asthma, PFO, complex migraine, epilepsy, anxiety, depression, PTSD, anemia, chronic idiopathic constipation, vertigo, right shoulder impingement GERD, hypothyroidism; presented to the hospital today with a chief complaint of not feeling well. Patient reports that over the past week to 10 days she has been not feeling well; has been having sinus infection which slowly cleared up; she went to a birthday alliance party and was exposed to the kids with infection; followed by she started developed more cough and sputum production. Reports he is having severe cough spells to the point that she syncopized at least x2. Her PCP also given her antibiotics along with prednisone which she took it for a couple days. And today she had severe diarrhea hence presented to the ER for further evaluation. Also reports abdominal pain. For the past few days she also reported having shortness of breath and dyspnea on exertion with wheezing. Denies any chest pain or palpitations. Denies any nausea or vomiting. Review of all other systems is negative except mentioned above ER course: Per ER team, patient on presentation noted to be short of breath and wheezing; also reported abdominal pain; CT abdomen pelvis showed findings concerning for colitis. EKG was nonischemic. Troponins were slightly elevated. Given multiple episodes of diarrhea with significant white count concern for possible C diff. hospital course: Patient was admitted for acute colitis. Treated with ceftriaxone Flagyl and diet was advanced she is now feeling much better. She will be discharged home on 5 more days of Ceftin and Flagyl and she will follow up with Gastroenterology. For moderate persistent asthma with acute decompensation given steroids and nebulizer and resolved. For syncopal episode she had no events on telemetry for mood disorder was continued on bupropion, Cymbalta. For hypothyroid continue levothyroxine. Patient is feeling better will be discharged home. CT ABD AND PELVIS FINDINGS: Small hiatal hernia. Liver is enlarged with right lobe measuring 19.5 cm. Spleen is enlarged measuring 15.5 cm in width. Normal pancreas. Normal adrenal glands. Symmetric renal enhancement. No hydronephrosis. Normal appendix. Diffuse thickening of the mucosa of the large bowel with mild inflammatory changes in the adjacent fat. No bowel obstruction. No mesenteric or retroperitoneal lymphadenopathy. Normal abdominal aorta. Urinary bladder is contracted. No adnexal mass. Small fat containing umbilical hernia. No acute fracture or suspicious bone lesion. IMPRESSION: 1. Findings consistent with an infectious or inflammatory colitis. No bowel obstruction. 2. Hepatosplenomegaly. 3. Small hiatal hernia. TODAY'S VISIT [facility] Medical History Elevated blood pressure reading in office with diagnosis of hypertension Diarrhea Gall stones Colon cancer screening Hospital discharge follow-up Other specified hypothyroidism Left sided abdominal pain Influenza A H1N1 infection Stool incontinence Shoulder pain Anemia Bronchitis due to COVID-19 virus COVID Acute pneumonia Work related injury Acute diarrhea Paresthesias in left hand Dysuria PFO (patent foramen ovale) Shortness of breath Community acquired pneumonia Chronic idiopathic constipation Pre-op examination Encounter for routine gynecological examination LFT elevation Encounter for general adult medical examination with abnormal findings Respiratory tract congestion with cough Hospital discharge follow-up COVID-19 Tracheobronchitis COVID-19 Iron deficiency anemia Shoulder pain, right Nausea and vomiting PFO (patent foramen ovale) History of transesophageal echocardiography (LAN) Colitis Abnormal angiogram of head COVID-19 Asthma Thyroid disease GERD (gastroesophageal reflux disease) Anemia Aneurysm Surgical History History of surgery of uterus H/O endoscopy History of H/O brain surgery History of colonoscopy Family History Father Diabetes Arthritis Diverticulitis Leukemia Mental health disorder Lung cancer Mother Anemia Arthritis Colon polyps Myocardial infarction Brother Crohn's disease Testicular cancer Brother Cancer Paternal Grandfather Leukemia Other Substance use disorder Social History Household Members: Spouse and Children Household Members Other:: boyfriend and his son Housing: House Are you a primary care director rn to a significant other at home: No Do you presently have visiting nurse or other home services: No Alcohol intake: former Comment: Refuses fall risk alarms, ambulates with steady gait. Patient Tobacco Use Status: Former Tobacco user Tobacco use type: Cigarette Cigarettes Per Day: 10 e-Cigarette/Vaping Use: Never Used Second Hand Smoke Exposure: No Substance Use Type: Marijuana Advance Directives Date on File: 04/09/21 service: No 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al status: employed 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: [employer]/ right hand dominant Cognitive needs: No Hearing needs: No Vision needs: Yes Review of Systems Const Denies fatigue, Denies fever(s), Denies night sweats, Denies poor appetite and Reports weight loss Eyes Details: glassesa Reports requires corrective lenses ENT Reports Normal hearing present, Denies dental pain, Denies dysphagia, Denies hearing loss, Denies mouth pain, Reports odynophagia, Denies throat swelling, Denies tongue swelling and Reports other (Dentition adequate) Card Reports no additional complaints Resp Reports cough GI Details: Reports abdominal pain, Denies melena, Reports bloating, Reports hematochezia, Denies constipation, Denies GI cramping, Denies dysphagia, Denies excessive flatus, Denies early satiety, Reports heartburn, Reports diarrhea, Reports nausea, Reports odynophagia, Reports vomiting and Denies hematemesis Skin/Breast Denies pruritus, Denies lesions, Denies rash and Denies jaundice Neuro Reports Normal hearing present and Denies Abnormal speech present Endo Denies fatigue Aller/Immun Denies throat swelling and Denies tongue swelling Physical Exam Vital Signs: Last Vital Signs Pulse 86 03/02/25 11:07 BP 126/82 03/02/25 11:07 BMI result Body Mass Index 42.2 Const General: cooperative, no acute distress, well developed, ill appearing acutely and tired appearing Nutritional Appearance: well nourished and obese Orientation/consciousness: oriented to person, oriented to place and oriented to time Limitations: No language barrier HEENT Head: Yes normocephalic and Yes atraumatic Eyes General: appearance normal, both eyes and all related structures Pupils: Equal, round and reactive pupils present Neck Neck: Yes normal visual inspection and Yes no lymphadenopathy Thyroid: Thyroid normal Resp Effort & Inspection: normal respiratory effort and able to speak in complete sentences Auscultation: clear to auscultation bilaterally Cardio Rate: regular rate Rhythm: regular rhythm Heart sounds: Normal, physiologic split S2 sound present Peripheral pulses: radial pulses present and posterior tibial pulses present GI Inspection: No distended, Yes Abdominal panniculus present and Yes obesity Palpation (GI): Soft to palpation, Firmness to palpation present (GI), Tenderness to palpation present (GI) in the LLQ and in the RLQ, no guarding, not rigid and No hepatosplenomegaly present Percussion: Yes normal to percussion Auscultation: normal bowel sounds Rectal Exam - Female: deferred Skin General skin exam: no rashes or lesions noted, turgor normal, skin not dry, no jaundice, No spider nevi and no striae Rashes: no rashes Nails: normal Neuro General: oriented to person, oriented to place and oriented to time Cranial nerves: Yes Equal, round and reactive pupils present and Yes Normal hearing present Speech: No Abnormal speech present Extrem General: Yes normal to inspection, No clubbing, No cyanosis and No edema Psych Appearance: grossly normal Mental Status: mental status grossly normal Speech and movement: Normal speech and movement present Affect: normal affect Attitude: cooperative Thought process: Normal thought process present and not confabulating Thought content: Normal thought content present Insight: Fair insight present (Psych) and Limited insight present (Psych) Judgement: Fair judgement present (Psych) and Limited judgement present (Psych) Results Reviewed Results Reviewed: DISCHARGE SUMMARY 01/19/2025 Hospital Course Hospital Course: from initial hpi: 55-year-old female with a past medical history of history of HLD, eosinophilic asthma, PFO, complex migraine, epilepsy, anxiety, depression, PTSD, anemia, chronic idiopathic constipation, vertigo, right shoulder impingement GERD, hypothyroidism; presented to the hospital today with a chief complaint of not feeling well. Patient reports that over the past week to 10 days she has been not feeling well; has been having sinus infection which slowly cleared up; she went to a birthday alliance party and was exposed to the kids with infection; followed by she started developed more cough and sputum production. Reports he is having severe cough spells to the point that she syncopized at least x2. Her PCP also given her antibiotics along with prednisone which she took it for a couple days. And today she had severe diarrhea hence presented to the ER for further evaluation. Also reports abdominal pain. For the past few days she also reported having shortness of breath and dyspnea on exertion with wheezing. Denies any chest pain or palpitations. Denies any nausea or vomiting. Review of all other systems is negative except mentioned above ER course: Per ER team, patient on presentation noted to be short of breath and wheezing; also reported abdominal pain; CT abdomen pelvis showed findings concerning for colitis. EKG was nonischemic. Troponins were slightly elevated. Given multiple episodes of diarrhea with significant white count concern for possible C diff. hospital course: Patient was admitted for acute colitis. Treated with ceftriaxone Flagyl and diet was advanced she is now feeling much better. She will be discharged home on 5 more days of Ceftin and Flagyl and she will follow up with Gastroenterology. For moderate persistent asthma with acute decompensation given steroids and nebulizer and resolved. For syncopal episode she had no events on telemetry for mood disorder was continued on bupropion, Cymbalta. For hypothyroid continue levothyroxine. Patient is feeling better will be discharged home. CT ABD AND PELVIS FINDINGS: Small hiatal hernia. Liver is enlarged with right lobe measuring 19.5 cm. Spleen is enlarged measuring 15.5 cm in width. Normal pancreas. Normal adrenal glands. Symmetric renal enhancement. No hydronephrosis. Normal appendix. Diffuse thickening of the mucosa of the large bowel with mild inflammatory changes in the adjacent fat. No bowel obstruction. No mesenteric or retroperitoneal lymphadenopathy. Normal abdominal aorta. Urinary bladder is contracted. No adnexal mass. Small fat containing umbilical hernia. No acute fracture or suspicious bone lesion. IMPRESSION: 1. Findings consistent with an infectious or inflammatory colitis. No bowel obstruction. 2. Hepatosplenomegaly. 3. Small hiatal hernia. Assessment & Plan Assessment & Plan (1) Bleeding hemorrhoids: Code(s): K64.9 - Unspecified hemorrhoids Category: Medical (2) Cholelithiasis: Code(s): K80.20 - Calculus of gallbladder without cholecystitis without obstruction Category: Medical (3) Acute colitis: Code(s): K52.9 - Noninfective gastroenteritis and colitis, unspecified Category: Medical (4) Abdominal pain: Code(s): R10.9 - Unspecified abdominal pain Category: Medical (5) Colitis: Code(s): K52.9 - Noninfective gastroenteritis and colitis, unspecified Category: Medical (6) Abdominal pain: Code(s): R10.9 - Unspecified abdominal pain Category: Medical (7) Diarrhea: Code(s): R19.7 - Diarrhea, unspecified Category: Medical (8) Elevated alkaline phosphatase level: Code(s): R74.8 - Abnormal levels of other serum enzymes Category: Medical Plan Essentially, she developed severe abdominal pain and diarrhea after a course of prednisone and antibiotics given for respiratory infection. She presented to our ER and there was a CAT scan finding of ?colitis. ? she was educated that colitis is a very catch all term and does not really get to the bottom of what the problem is. With this being said we will get a wide range of testing to try to pinned down the exact cause so that we can, hopefully, identify an appropriate treatment that will be effective. Since it is also possible that her gallstones combined with a particularly fatty meal maybe part of the problem we will put her on a trial of Creon and see if this makes any big difference in her symptoms. Return office visit in 2 weeks Orders: Orders Calprotectin, Fecal 03/02/25 R10.9 - Unspecified abdominal pain GI Panel 03/02/25 R10.9 - Unspecified abdominal pain, K52.9 - Noninfective gastroenteritis and colitis, unspecified H pylori Ag Stool 03/02/25 R10.9 - Unspecified abdominal pain, K52.9 - Noninfective gastroenteritis and colitis, unspecified Comprehensive Met. Panel 03/02/25 R10.9 - Unspecified abdominal pain, K52.9 - Noninfective gastroenteritis and colitis, unspecified Complete Blood Count Auto Diff 03/02/25 R10.9 - Unspecified abdominal pain, K52.9 - Noninfective gastroenteritis and colitis, unspecified Lactic Acid 03/02/25 R10.9 - Unspecified abdominal pain, K52.9 - Noninfective gastroenteritis and colitis, unspecified Alkaline Phosphatase Bone 03/02/25 R10.9 - Unspecified abdominal pain, R19.7 - Diarrhea, unspecified C Reactive Protein 03/02/25 R10.9 - Unspecified abdominal pain Transglutaminase IgA 03/02/25 R10.9 - Unspecified abdominal pain, R19.7 - Diarrhea, unspecified, R74.8 - Abnormal levels of other serum enzymes Transglutaminase Ab IgG 03/02/25 R10.9 - Unspecified abdominal pain, R19.7 - Diarrhea, unspecified Medications: New ajizal-swijaewc-jpvxcmc (pork) 36,000-114,000- 180,000 unit (Creon) administer with meals and/or snacks 2 caps PO BID 60 caps 3RF K80.20 - Calculus of gallbladder without cholecystitis without obstruction, K64.9 - Unspecified hemorrhoids, K52.9 - Noninfective gastroenteritis and colitis, unspecified Coding Level of Care Code Est Pt Level 4 (04365) Diagnoses Bleeding hemorrhoids K64.9 Cholelithiasis K80.20 Acute colitis K52.9 Abdominal pain R10.9 Colitis K52.9 Diarrhea R19.7 Elevated alkaline phosphatase level R74.8 Time Spent (min) 36
[2025-03-02 11:07] VITALS: BP 126/82; PULSE 86; BMI 42.2
== END 2025-03-02 12:03 | disposition home or self-care (01) ==
LOC: HO.HGI 09:39
PROVIDERS: PCP Internal Medicine; Visit Provider Nurse Practitioner
DX: K64.9 Unspecified hemorrhoids (principal); K80.20 Calculus of gallbladder without cholecystitis without obstruction; K52.9 Noninfective gastroenteritis and colitis, unspecified; R10.9 Unspecified abdominal pain; R19.7 Diarrhea, unspecified; R74.8 Abnormal levels of other serum enzymes
CPT/HCPCS: 99214

== ENCOUNTER 2025-03-16 14:21 | Outpatient (AMB) | payer OTHER, SELFPAY ==
[2025-03-16 14:26] VITALS: BP 148/86; PULSE 93; O2SAT 96; BMI 42.0
--- NOTE | 2025-03-16 14:26 | AM.OFFWIN_ITS ---
Intake Vital Signs 03/16/25 14:26 03/16/25 14:31 Height 5 ft 4 in Weight 245 lb BMI 42.0 BP 148/86 H 150/91 H Blood Pressure Location Lt brachial Rt brachial Position Sitting Sitting Pulse 93 Pulse Source Pulse Oximeter Pulse Oximetry (%) 96 Oxygen Delivery Method Room Air Comment Taken on patient's automated BP machine from home Intake Visit Reasons: EP High BP Intake Note: Patient presents c/o high BP. Feeling pain in shoulders, lightheaded at times, headaches. Patient Tobacco Use Status: Former Tobacco user Allergies niacin (Niaspan Extended-Release) Allergy (Intermediate, Verified 03/16/25 14:28) skin blisters tramadol Allergy (Intermediate, Verified 03/16/25 14:28) seizures barley (BARLEY) Allergy (Unknown, Verified 03/16/25 14:28) UNKNOWN fluticasone (Advair Diskus) Allergy (Unknown, Verified 03/16/25 14:28) Shortness of Breath ibuprofen Allergy (Unknown, Verified 03/16/25 14:28) Swelling naratriptan Allergy (Unknown, Verified 03/16/25 14:28) unknown Penicillins (PENICILLINS) Allergy (Unknown, Verified 03/16/25 14:28) Unknown sumatriptan Allergy (Unknown, Verified 03/16/25 14:28) unknown trazodone (TRAZODONE) Allergy (Unknown, Verified 03/16/25 14:28) UNKNOWN omalizumab (From Xolair) Adverse Reaction (Severe, Verified 03/16/25 14:28) Anaphylaxis rubber, unspecified Adverse Reaction (Severe, Verified 03/16/25 14:28) Unknown equate cough drops sugar free Allergy (Mild, Uncoded 03/16/25 14:28) Unknown silicone Adverse Reaction (Severe, Uncoded 03/16/25 14:28) Unknown vaseline Adverse Reaction (Severe, Uncoded 03/16/25 14:28) hives HPI HPI Comments History of Present Illness Details 55 y/o female presents to the [facility] with concern for elevated blood pressure this week. She reports home BP readings with systolic >160s and diastolic >100s. Known history of hypertension; currently taking Lisinopril 5 mg daily as prescribed. States she is awaiting a Holter monitor and nuclear stress test per her PCP/Cardiology referral. Today she reports headaches, dizziness, and bilateral shoulder pain. Denies chest pain, shortness of breath, palpitations, or chest tightness. [facility] Medical History (Updated 03/16/25 @ 15:13 by Eboni Valdivia NP) Elevated blood pressure reading in office with diagnosis of hypertension Diarrhea Gall stones Colon cancer screening Hospital discharge follow-up Other specified hypothyroidism Left sided abdominal pain Influenza A H1N1 infection Stool incontinence Shoulder pain Anemia Bronchitis due to COVID-19 virus COVID Acute pneumonia Work related injury Acute diarrhea Paresthesias in left hand Dysuria PFO (patent foramen ovale) Shortness of breath Community acquired pneumonia Chronic idiopathic constipation Pre-op examination Encounter for routine gynecological examination LFT elevation Encounter for general adult medical examination with abnormal findings Respiratory tract congestion with cough Hospital discharge follow-up COVID-19 Tracheobronchitis COVID-19 Iron deficiency anemia Shoulder pain, right Nausea and vomiting PFO (patent foramen ovale) History of transesophageal echocardiography (LAN) Colitis Abnormal angiogram of head COVID-19 Asthma Thyroid disease GERD (gastroesophageal reflux disease) Anemia Aneurysm Surgical History History of surgery of uterus H/O endoscopy History of H/O brain surgery History of colonoscopy Family History Father Diabetes Arthritis Diverticulitis Leukemia Mental health disorder Lung cancer Mother Anemia Arthritis Colon polyps Myocardial infarction Brother Crohn's disease Testicular cancer Brother Cancer Paternal Grandfather Leukemia Other Substance use disorder Social History Household Members: Spouse and Children Household Members Other:: boyfriend and his son Housing: House Are you a primary career coach to a significant other at home: No Do you presently have visiting nurse or other home services: No Alcohol intake: former Comment: Refuses fall risk alarms, ambulates with steady gait. Patient Tobacco Use Status: Former Tobacco user Tobacco use type: Cigarette Cigarettes Per Day: 10 e-Cigarette/Vaping Use: Never Used Second Hand Smoke Exposure: No Substance Use Type: Marijuana Advance Directives Date on File: 04/09/21 service: No 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al status: employed 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: [employer]/ right hand dominant Cognitive needs: No Hearing needs: No Vision needs: Yes Review of Systems Const All systems reviewed & are unremarkable except as noted in HPI and below Physical Exam Vital Signs: Last Vital Signs Pulse 93 03/16/25 14:26 BP 150/91 H 03/16/25 14:31 Pulse Ox 96 03/16/25 14:26 Oxygen Delivery Method Room Air 03/16/25 14:26 BMI result Body Mass Index 42.0 Const General: no acute distress Nutritional Appearance: obese Orientation/consciousness: patient oriented x3 Resp Effort & Inspection: normal respiratory effort Cardio Heart sounds: S1 normal heart sound present and S2 normal heart sound present Neuro General: patient oriented x3, gait normal and moves all extremities Psych Speech and movement: Normal speech and movement present Assessment & Plan Assessment & Plan (1) Elevated blood pressure reading in office with diagnosis of hypertension: Code(s): I10 - Essential (primary) hypertension Plan: Uncontrolled Hypertension ? Persistent elevated BP readings despite Lisinopril 5 mg daily. Symptomatic with headache and dizziness. Headache/Dizziness ? Likely secondary to elevated BP; no red flag neuro symptoms reported. Will Increase Lisinopril to 10 mg (take 2 tabs of 5mg = 10 mg daily). Global Project Manager on strict BP monitoring twice daily; bring log to follow-up. Review warning signs requiring ED evaluation (e.g., chest pain, dyspnea, syncope, neuro deficits, severe headache). Encourage limiting sodium, staying hydrated, and avoiding stimulants. Continue with pending Cardiology workup (Holter monitor, nuclear stress test). F/U with PCP and Cardiology. Coding Level of Care Code Est Pt Level 4 (60770) Diagnoses Elevated blood pressure reading in office with diagnosis of hypertension I10 Time Spent (min) 20
[2025-03-16 14:31] VITALS: BP 150/91
--- OUTSIDE RECORDS SUMMARY | 2025-03-16 19:45 | XMS_ITS | Encounter Summary ---
Author Organization [facility] Address [address] [place] [address] Care Team Providers Care Master Tax Advisor Name Role Phone Braydon Sykes MD Primary Care Provider [phone] Encounter Details Date Type Department Care Team (Late st Contact Info) Description 06/09/2024 Lab Requisition [facility] - Main Lab [address] [place] [address] Braydon Sykes MD [address] [place] [phone] Encounter for other general examination Social History [...] AM EST) WBC 5.6 4.8 - 10.8 K/[facility] LAB HEMETOLOGY METHOD 06/09/2024 8:24 AM EST [facility] RBC 4.40 3.80 - 4.80 M/[facility] LAB HEMETOLOGY METHOD 06/09/2024 8:24 AM EST [facility] Hemoglobin 12.1 11.5 - 16.0 g/dL LAB HEMETOLOGY METHOD 06/09/2024 8:24 AM [facility] Hematocrit 39.2 35.0 - 47.0 % LAB HEMETOLOGY METHOD 06/09/2024 8:24 AM [facility] MCV 89.9 79.0 - 98.0 FL LAB HEMETOLOGY METHOD 06/09/2024 8:24 AM [facility] MCH 27.8 27.0 - 32.0 pcg LAB HEMETOLOGY METHOD 06/09/2024 8:24 AM [facility] MCHC 30.9(L) 32.0 - 37.0 g/dL LAB HEMETOLOGY METHOD 06/09/2024 8:24 AM [facility] RDW 14.8 11.0 - 15.0 % LAB HEMETOLOGY METHOD 06/09/2024 8:24 AM [facility] Platelets 245 130 - 400 K/mcL LAB HEMETOLOGY METHOD 06/09/2024 8:24 AM [facility] MPV 10.5 7.0 - 11.0 FL LAB HEMETOLOGY METHOD 06/09/2024 8:24 AM [facility] NRBC 0.5 <1.0 % LAB HEMETOLOGY METHOD 06/09/2024 8:24 AM [facility] NRBC Absolute 0.03 <0.10 K/mcL LAB HEMETOLOGY METHOD 06/09/2024 8:24 AM [facility] Blood Venous blood specimen / Unknown Venipuncture / Unknown 06/09/2024 6:00 AM EST 06/09/2024 7:30 AM EST us Braydon Sykes MD LAB BLOOD ORDERABLES Final Res ult [facility] [address] [place] [address], * Basic metabolic panel (06/09/2024 6:00 AM EST) Sodium 136 133 - 145 mmol/L LAB CHEMISTRY METHOD 06/09/2024 8:20 AM [facility] Potassium 4.4 3.5 - 5.5 mmol/L LAB CHEMISTRY METHOD 06/09/2024 8:20 AM [facility] Chloride 105 96 - 110 mmol/L LAB CHEMISTRY METHOD 06/09/2024 8:20 AM [facility] CO2 22 21 - 32 mmol/L LAB CHEMISTRY METHOD 06/09/2024 8:20 AM [facility] Anion Gap 9 3 - 11 LAB CHEMISTRY METHOD 06/09/2024 8:20 AM [facility] Glucose 74 70 - 100 mg/dL LAB CHEMISTRY METHOD 06/09/2024 8:20 AM [facility] BUN 14 5 - 25 mg/dL LAB CHEMISTRY METHOD 06/09/2024 8:20 AM [facility] Creatinine 0.65 0.50 - 1.10 mg/dL LAB CHEMISTRY METHOD 06/09/2024 8:20 AM [facility] eGFR 105 >=60 mL/min/1. 73m2 LAB CHEMISTRY METHOD 06/09/2024 8:20 AM [facility] Comment:Calculation based on the Chronic Kidney Disease Epidemiology Collaboration (CKD-EPI) equation refit without adjustment for race. BUN/Creatinine Ratio 21.5 LAB CHEMISTRY METHOD 06/09/2024 8:20 AM [facility] Calcium 9.0 8.5 - 10.5 mg/dL LAB CHEMISTRY METHOD 06/09/2024 8:20 AM [facility] Blood Venous blood specimen / Unknown Venipuncture / Unknown 06/09/2024 6:00 AM EST 06/09/2024 7:30 AM EST us Braydon Sykes MD LAB BLOOD ORDERABLES Final Res ult [facility] [address] [place] [address], documented in this encounter Visit Diagnoses Diagnosis Encounter for other general examination documented in this encounter Care Teams Master Tax Advisor Relationship Specialty Start Date End Date Braydon Sykes MD [address] [place] [phone] PCP - General Internal Medicine 06/03/24 documented as of this encounter
--- OUTSIDE RECORDS SUMMARY | 2025-03-16 19:45 | XMS_ITS | Clinical Summary ---
Author Organization [address] [facility] Address [address] [place] [address] Phone Care Team Providers Care Aircraft Dispatcher Name Role Phone Braydon Sykes MD Primary Care Provider [phone] Social History Tobacco Use Types Packs/Day Years [...] Health Screening 06/03/2024 COVID-19 Vaccine (1 - 2024-2 6 season) 2024 Influenza Vaccine (#1) 2024 RSV [...] topic Insurance MEDICAID - [place] Care Teams Aircraft Dispatcher Relationship Specialty Start Date End Date Braydon Sykes MD [address] [place] [id number] PCP - General Internal Medicine 06/03/24
--- OUTSIDE RECORDS SUMMARY | 2025-03-16 19:45 | XMS_ITS | Clinical Summary ---
Author Organization [facility] Address [address] [place] [address] Phone Care Team Providers Care Recovery Assistant Name Role Phone Thee Tay MD Primary Care Provider [phone] Social History Tobacco Use Types Packs/Day Years [...] [place] [id number] [facility] [employer] [facility] [employer] [facility] [facility] [employer] Care Teams Recovery Assistant Relationship Specialty Start Date End Date Thee Tay MD [address] [facility] [address] [place] [address] PCP - General Internal Medicine 01/13/17 Additional Source Comments The information contained in this document represents components of the legal health record. It is not the complete legal health record.[facility]
--- OUTSIDE RECORDS SUMMARY | 2025-03-16 19:45 | XMS_ITS | Encounter Summary ---
Author Organization [facility] Address [address] [place] [address] Phone Care Team Providers Care Packing House Supervisor Name Role Phone Thee Tay MD Primary Care Provider [phone] Reason for Referral * Surgical (Within 1 month) - Closed Specialty Diagnoses / Procedures Referred By Carrie campos Referred To Contact sealer aircraft Diagnoses Temporomandibular joint disorder (TMJ) System, Provider Not In, PhD [address] [address] Phone: tel: Referral ID Status Reason Start Date Expiration Date Visits Re quested Visits Authorized [id number] Closed 01/14/2017 01/14/2018 1 1 Scheduling Instructions For dental clearance related to cardiac surgery, joint replacement surgery, oncologic care and organ transplantation please refer to Oral Medicine or Dentistry. Patients should present to appointment with any relavant office notes, imaging, and pathology results. Encounter Details Date Type Department Care Team (Latest Contact Info) Description 01/14/2017 Transcribe Orders [facility] Referral Management [address] [place] [id number] Unknown, Unknown, Temporomandibular joint disorder (TMJ) (Primary [...] Associated Diagnoses Order Schedule [facility] [facility] [place] [place] Outpatient Referral Routine Temporomandibular joint disorder (TMJ) Ordered: 01/14/2017 documented as of this encounter Visit Diagnoses Diagnosis Temporomandibular joint disorder (TMJ)- Primary documented in this encounter Care Teams Packing House Supervisor Relationship Specialty Start Date End Date Thee Tay MD [facility] [place] [address] PCP - General Internal Medicine 01/13/17 documented as of this encounter Additional Source Comments The information contained in this document represents components of the legal health record. It is not the complete legal health record.[facility]
--- OUTSIDE RECORDS SUMMARY | 2025-03-16 19:45 | XMS_ITS | Encounter Summary ---
Author Organization [facility] Address [address] [place] [address] Care Team Providers Care Bowling Alley Attendant Name Role Phone Braydon Sykes MD Primary Care Provider Encounter Details Date Type Department Care Team (Late st Contact Info) Description 06/03/[address] [facility] - Main Lab [address] [facility] [place] [address] Braydon Sykes MD [address] [place] [phone] Encounter for other general examination Social History [...] AM EST) WBC 5.6 4.8 - 10.8 K/[facility] LAB HEMETOLOGY METHOD 06/03/2024 11:27 AM [facility] RBC 4.80 3.80 - 4.80 M/[facility] LAB HEMETOLOGY METHOD 06/03/2024 11:27 AM [facility] Hemoglobin 12.8 11.5 - 16.0 g/dL LAB HEMETOLOGY METHOD 06/03/2024 11:27 AM [facility] Hematocrit 39.8 35.0 - 47.0 % LAB HEMETOLOGY METHOD 06/03/2024 11:27 AM [facility] MCV 82.2 79.0 - 98.0 FL LAB HEMETOLOGY METHOD 06/03/2024 11:27 AM [facility] MCH 26.4(L) 27.0 - 32.0 pcg LAB HEMETOLOGY METHOD 06/03/2024 11:27 AM [facility] MCHC 32.2 32.0 - 37.0 g/dL LAB HEMETOLOGY METHOD 06/03/2024 11:27 AM [facility] RDW 14.2 11.0 - 15.0 % LAB HEMETOLOGY METHOD 06/03/2024 11:27 AM [facility] Platelets 199 130 - 400 K/[facility] LAB HEMETOLOGY METHOD 06/03/2024 11:27 AM [facility] MPV 10.8 7.0 - 11.0 FL LAB HEMETOLOGY METHOD 06/03/2024 11:27 AM [facility] NRBC 0.0 <1.0 % LAB HEMETOLOGY METHOD 06/03/2024 11:27 AM [facility] NRBC Absolute 0.00 <0.10 K/[facility] LAB HEMETOLOGY METHOD 06/03/2024 11:27 AM [facility] Neutrophils Relative 64.3 % LAB HEMETOLOGY METHOD 06/03/2024 11:27 AM [facility] Lymphocytes Relative 19.3 % LAB HEMETOLOGY METHOD 06/03/2024 11:27 AM [facility] Monocytes Relative 13.5 % LAB HEMETOLOGY METHOD 06/03/2024 11:27 AM [facility] Eosinophils Relative 2.0 % LAB HEMETOLOGY METHOD 06/03/2024 11:27 AM [facility] Basophils Relative 0.5 % LAB HEMETOLOGY METHOD 06/03/2024 11:27 AM [facility] Immature Granulocytes Relative 0.4 % LAB HEMETOLOGY METHOD 06/03/2024 11:27 AM [facility] Neutrophils Absolute 3.63 1.50 - 7.00 K/mcL LAB HEMETOLOGY METHOD 06/03/2024 11:27 AM [facility] Lymphocytes Absolute 1.09 1.00 - 5.00 K/mcL LAB HEMETOLOGY METHOD 06/03/2024 11:27 AM [facility] Monocytes Absolute 0.76 0.20 - 1.00 K/mcL LAB HEMETOLOGY METHOD 06/03/2024 11:27 AM [facility] Eosinophils Absolute 0.11 0.00 - 0.50 K/mcL LAB HEMETOLOGY METHOD 06/03/2024 11:27 AM [facility] Basophils Absolute 0.03 0.00 - 0.20 K/mcL LAB HEMETOLOGY METHOD 06/03/2024 11:27 AM [facility] Immature Granulocytes Absolute 0.02 0.00 - 0.03 K/mcL LAB HEMETOLOGY METHOD 06/03/2024 11:27 AM [facility] Blood Venous blood specimen / Unknown Venipuncture / Unknown 06/03/2024 6:18 AM EST 06/03/2024 10:27 AM EST Braydon Sykes MD LAB BLOOD ORDERABLES Final Res ult Performing Organization Address [facility]/ZIP Co de Phone Number [facility] [address] [place] [address], [place] [phone] * Magnesium (06/03/2024 6:18 AM EST) Pathologist [facility] Magnesium 2.3 1.9 - 2.6 mg/dL LAB CHEMISTRY METHOD 06/03/2024 11:57 AM EST [facility] Blood Venous blood specimen / Unknown Venipuncture / Unknown 06/03/2024 6:18 AM EST 06/03/2024 10:27 AM EST Braydon Sykes MD LAB BLOOD ORDERABLES Final Res ult Performing Organization Address [facility]/ZIP Co de Phone Number [facility] [address] [place] [address], [place] [phone] * (ABNORMAL) Comprehensive metabolic panel (06/03/2024 6:18 AM EST) [facility] Sodium 136 133 - 145 mmol/L LAB CHEMISTRY METHOD 06/03/2024 11:57 AM [facility] Potassium 4.1 3.5 - 5.5 mmol/L LAB CHEMISTRY METHOD 06/03/2024 11:57 AM [facility] Chloride 104 96 - 110 mmol/L LAB CHEMISTRY METHOD 06/03/2024 11:57 AM [facility] CO2 24 21 - 32 mmol/L LAB CHEMISTRY METHOD 06/03/2024 11:57 AM [facility] Anion Gap 8 3 - 11 LAB CHEMISTRY METHOD 06/03/2024 11:57 AM [facility] Glucose 83 70 - 100 mg/dL LAB CHEMISTRY METHOD 06/03/2024 11:57 AM [facility] BUN 14 5 - 25 mg/dL LAB CHEMISTRY METHOD 06/03/2024 11:57 AM [facility] Creatinine 0.58 0.50 - 1.10 mg/dL LAB CHEMISTRY METHOD 06/03/2024 11:57 AM [facility] eGFR 108 >=60 mL/min/1. 73m2 LAB CHEMISTRY METHOD 06/03/2024 11:57 AM [facility] Comment:Calculation based on the Chronic Kidney Disease Epidemiology Collaboration (CKD-EPI) equation refit without adjustment for race. BUN/Creatinine Ratio 24.1 LAB CHEMISTRY METHOD 06/03/2024 11:57 AM [facility] Calcium 9.1 8.5 - 10.5 mg/dL LAB CHEMISTRY METHOD 06/03/2024 11:57 AM [facility] AST (SGOT) 36 10 - 42 unit/L LAB CHEMISTRY METHOD 06/03/2024 11:57 AM [facility] ALT (SGPT) 43 10 - 60 unit/L LAB CHEMISTRY METHOD 06/03/2024 11:57 AM [facility] Alkaline Phosphatase 148(H) 42 - 121 unit/L LAB CHEMISTRY METHOD 06/03/2024 11:57 AM [facility] Total Protein 6.2 6.0 - 8.0 g/dL LAB CHEMISTRY METHOD 06/03/2024 11:57 AM [facility] Albumin 3.5 3.2 - 5.0 g/dL LAB CHEMISTRY METHOD 06/03/2024 11:57 AM [facility] Total Bilirubin 0.2 0.0 - 1.4 mg/dL LAB CHEMISTRY METHOD 06/03/2024 11:57 AM [facility] Blood Venous blood specimen / Unknown Venipuncture / Unknown 06/03/2024 6:18 AM EST 06/03/2024 10:27 AM EST us Braydon Sykes MD LAB BLOOD ORDERABLES Final Res ult [facility] [address] [place] [address], documented in this encounter Visit Diagnoses Diagnosis Encounter for other general examination documented in this encounter Care Teams Bowling Alley Attendant Relationship Specialty Start Date End Date Braydon Sykes MD [address] [place] [id number] PCP - General Internal Medicine 06/03/24 documented as of this encounter
== END 2025-03-16 15:22 | disposition home or self-care (01) ==
PROVIDERS: PCP Internal Medicine; Visit Provider Nurse Practitioner Family
DX: I10 Essential (primary) hypertension (principal)

== ENCOUNTER → 2025-03-16 14:21 | Outpatient (BNVA) | payer OTHER, SELFPAY | PROVIDERS: PCP Internal Medicine; Visit Provider Nurse Practitioner Family | DX: I10 Essential (primary) hypertension (principal); R51.9 Headache, unspecified; R42 Dizziness and giddiness | CPT/HCPCS: 99212 ==

== ENCOUNTER 2025-03-21 10:27 | Outpatient (AMB) | payer OTHER, SELFPAY ==
--- NOTE | 2025-03-21 10:28 | MHC.OFFVIS ---
Vital Signs 03/21/25 10:40 Height 5 ft 4 in Weight 246 lb BMI 42.2 BP 132/68 Blood Pressure Location Lt brachial Position Sitting Pulse 95 Intake Visit Reasons: Calculus of gallbladder without cholecystitis Intake Note: Patient is seen in office for evaluation and treatment of the gallbladder. Pt c/o: onset 22 yrs, RUQ pain, nausea and vomit, has diverticulitis and colitis I am always in pain , denies diarrhea or constipation ER/CT/us:01/21/25 It Service Delivery Manager Required: No Accompanied by: Self / Same As Patient Allergies niacin (Niaspan Extended-Release) Allergy (Intermediate, Verified 03/21/25 10:36) skin blisters tramadol Allergy (Intermediate, Verified 03/21/25 10:36) seizures barley (BARLEY) Allergy (Unknown, Verified 03/21/25 10:36) UNKNOWN fluticasone (Advair Diskus) Allergy (Unknown, Verified 03/21/25 10:36) Shortness of Breath ibuprofen Allergy (Unknown, Verified 03/21/25 10:36) Swelling naratriptan Allergy (Unknown, Verified 03/21/25 10:36) unknown Penicillins (PENICILLINS) Allergy (Unknown, Verified 03/21/25 10:36) Unknown sumatriptan Allergy (Unknown, Verified 03/21/25 10:36) unknown trazodone (TRAZODONE) Allergy (Unknown, Verified 03/21/25 10:36) UNKNOWN omalizumab (From Xolair) Adverse Reaction (Severe, Verified 03/21/25 10:36) Anaphylaxis rubber, unspecified Adverse Reaction (Severe, Verified 03/21/25 10:36) Unknown equate cough drops sugar free Allergy (Mild, Uncoded 03/21/25 10:36) Unknown silicone Adverse Reaction (Severe, Uncoded 03/21/25 10:36) Unknown vaseline Adverse Reaction (Severe, Uncoded 03/21/25 10:36) hives Medication List - Last Reconciled 03/21/25 by Popeye Anna MD acetaminophen 1,000 mg PO Q6H PRN albuterol sulfate 90 mcg/actuation (Ventolin HFA) 2 puffs inhalation Q4H PRN aspirin 81 mg PO DAILY [Blood pressure monitor As directed] cyclobenzaprine 5 mg PO .qhs PRN 90 days dexlansoprazole (Dexilant) 60 mg PO DAILY 30 days duloxetine 20 mg PO BEDTIME duloxetine 30 mg PO BEDTIME [fall detection monitor As directed] famotidine (Pepcid) 40 mg PO BEDTIME fluticasone propion-salmeterol 230-21 mcg/actuation (Advair HFA) 2 puffs inhalation Q12H fluticasone propionate 50 mcg/actuation (Flonase Allergy Relief) 2 sprays intranasal BID PRN ipratropium-albuterol 0.5 mg-3 mg(2.5 mg base)/3 mL 3 mL inhalation Q4-6H PRN 30 days levothyroxine 150 mcg PO DAILY@0600 cnzpwk-doprnfbt-tgyaesf (pork) 36,000-114,000- 180,000 unit (Creon) 2 caps PO BID lisinopril 10 mg PO DAILY loratadine 10 mg PO DAILY 30 days lorazepam 1 mg PO DAILY PRN melatonin 5 mg PO BEDTIME montelukast 10 mg PO BEDTIME xy-tc-fdsb-FA-Ca carb-vit K 18 mg-400 mcg- 500 mg-50 mcg (Women's Multivitamin) 1 tab PO DAILY oxcarbazepine 150 mg PO ONCE topiramate 25 mg PO BID HPI Comments Details: 55-year-old female patient recently admitted with a diagnosis of colitis at a known history of gallstones within the gallbladder. She reports a 22 year history of complaints of abdominal pain intermittently in the epigastrium and right upper quadrant. Currently she has also lower abdominal pain. She is being followed by Sophy Morales further colitis. The pain is also referred to the shoulder bilaterally and back in his described as sharp and intense. She denies any fever or chills. She presents today to discuss possible cholecystectomy. [facility] Medical History Elevated blood pressure reading in office with diagnosis of hypertension Diarrhea Gall stones Colon cancer screening Hospital discharge follow-up Other specified hypothyroidism Left sided abdominal pain Influenza A H1N1 infection Stool incontinence Shoulder pain Anemia Bronchitis due to COVID-19 virus COVID Acute pneumonia Work related injury Acute diarrhea Paresthesias in left hand Dysuria PFO (patent foramen ovale) Shortness of breath Community acquired pneumonia Chronic idiopathic constipation Pre-op examination Encounter for routine gynecological examination LFT elevation Encounter for general adult medical examination with abnormal findings Respiratory tract congestion with cough Hospital discharge follow-up COVID-19 Tracheobronchitis COVID-19 Iron deficiency anemia Shoulder pain, right Nausea and vomiting PFO (patent foramen ovale) History of transesophageal echocardiography (LAN) Colitis Abnormal angiogram of head COVID-19 Asthma Thyroid disease GERD (gastroesophageal reflux disease) Anemia Aneurysm Surgical History History of surgery of uterus H/O endoscopy History of H/O brain surgery History of colonoscopy Family History Father Diabetes Arthritis Diverticulitis Leukemia Mental health disorder Lung cancer Mother Anemia Arthritis Colon polyps Myocardial infarction Brother Crohn's disease Testicular cancer Brother Cancer Paternal Grandfather Leukemia Other Substance use disorder Social History Household Members: Spouse and Children Household Members Other:: boyfriend and his son Housing: House Are you a primary cattle care worker to a significant other at home: No Do you presently have visiting nurse or other home services: No Alcohol intake: former Comment: Refuses fall risk alarms, ambulates with steady gait. Patient Tobacco Use Status: Former Tobacco user Tobacco use type: Cigarette Cigarettes Per Day: 10 e-Cigarette/Vaping Use: Never Used Second Hand Smoke Exposure: No Substance Use Type: Marijuana Advance Directives Date on File: 04/09/21 service: No 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al status: employed 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: [employer]/ right hand dominant Cognitive needs: No Hearing needs: No Vision needs: Yes Review of Systems Const All systems reviewed & are unremarkable except as noted in HPI and below Physical Exam Vital Signs: Last Vital Signs Pulse 95 03/21/25 10:40 BP 132/68 03/21/25 10:40 BMI result Body Mass Index 42.2 Last Vital Signs Temp 98.1 F 01/21/25 17:23 Pulse 79 01/21/25 17:23 Resp 18 01/21/25 17:23 BP 115/61 01/21/25 17:23 Pulse Ox 98 01/21/25 17:23 O2 Del Method Room Air 01/21/25 17:23 BMI result Body Mass Index 36.3 Const General: cooperative and no acute distress Nutritional Appearance: well nourished Orientation/consciousness: patient oriented x3 Limitations: no limitations HEENT Head: Yes normocephalic and Yes atraumatic Ears: hearing grossly normal bilaterally Resp Effort & Inspection: normal respiratory effort, no audible wheezes, no cough and no respiratory distress Cardio Jugular venous distension: no JVD GI Inspection: Yes normal to inspection Palpation (GI): Tenderness to palpation present (GI) (Mild diffuse) Martinez's sign negative, no guarding, not rigid and No hepatosplenomegaly present Percussion: Yes normal to percussion Auscultation: normal bowel sounds Rectal Exam - Female: deferred Skin Other: Warm, dry, no rash Neuro General: patient oriented x3 Extrem General: Yes no clubbing, cyanosis or edema Assessment & Plan Assessment & Plan (1) Symptomatic cholelithiasis: Code(s): K80.20 - Calculus of gallbladder without cholecystitis without obstruction Category: Medical (2) Acute colitis: Code(s): K52.9 - Noninfective gastroenteritis and colitis, unspecified Category: Medical Plan 55-year-old female patient presenting with persistent abdominal pain found recently to have colitis which is being managed by Gastroenterology. Patient also has a long history of symptomatic cholelithiasis which she feels may be causing some of her abdominal symptoms. We discussed laparoscopic or possible open cholecystectomy including the procedure, risks and alternatives, she consents to proceeding with the surgery. This will be scheduled as a short-stay surgery. Medications: Discontinued lisinopril Discontinued Reason: Doctor's Order 5 mg PO DAILY 90 tabs 0RF Coding Level of Care Code Est Pt Level 4 (61877) Diagnoses Symptomatic cholelithiasis K80.20 Acute colitis K52.9
[2025-03-21 10:40] VITALS: BP 132/68; PULSE 95; BMI 42.2
--- OUTSIDE RECORDS SUMMARY | 2025-03-21 13:03 | XMS_ITS | Clinical Summary ---
Author Organization [facility] Address [address] [place] [address] Phone Care Team Providers Care Child Guidance Counselor Name Role Phone Thee Tay MD Primary Care Provider [phone] Social History Tobacco Use Types Packs/Day Years [...] [place] [id number] [facility] Zarfo[facility]MA HEALTH [facility] DrNaturalHealing [facility] JuristatSUMMA HEALTH MCO [facility] [facility] NEWPORTOceen MCO Care Teams Child Guidance Counselor Relationship Specialty Start Date End Date Thee Tay MD [address] [facility] [address] [place] [address] PCP - General Internal Medicine 01/13/17 Additional Source Comments The information contained in this document represents components of the legal health record. It is not the complete legal health record.[facility]
--- OUTSIDE RECORDS SUMMARY | 2025-03-21 13:03 | XMS_ITS | Encounter Summary ---
Author Organization [facility] Address [address] [place] [address] Care Team Providers Care Button Bradder Name Role Phone Braydon Sykes MD Primary Care Provider [phone] Encounter Details Date Type Department Care Team (Late st Contact Info) Description 06/03/2024 Lab Requisition [facility] - Main Lab [address] [facility] [place] [address] Braydon Sykes MD [address] [place] [address] Encounter for other general examination Social History [...] AM EST) WBC 5.6 4.8 - 10.8 K/[facility] LAB HEMETOLOGY METHOD 06/03/2024 11:27 AM [facility] LAB RBC 4.80 3.80 - 4.80 M/[facility] LAB HEMETOLOGY METHOD 06/03/2024 11:27 AM [facility] [...] [facility]PITAL LAB Platelets 199 130 - 400 K/[facility] LAB HEMETOLOGY METHOD 06/03/2024 11:27 AM [facility] LAB MPV 10.8 7.0 - 11.0 FL LAB HEMETOLOGY METHOD 06/03/2024 11:27 AM [facility] LAB NRBC 0.0 <1.0 % LAB HEMETOLOGY METHOD 06/03/2024 11:27 AM [facility] LAB NRBC Absolute 0.00 <0.10 K/[facility] LAB HEMETOLOGY METHOD 06/03/2024 11:27 AM [facility] [...] ORDERABLES Final Res ult Performing Organization Address [facility]/ZIP Co de Phone Number [facility] [address] [place] [address], [place] [phone] * Magnesium (06/03/2024 6:18 AM EST) Pathologist [facility] Magnesium 2.3 1.9 - 2.6 mg/dL LAB CHEMISTRY METHOD 06/03/2024 11:[address] [facility] Blood Venous blood specimen / Unknown Venipuncture / Unknown 06/03/2024 6:18 AM EST 06/03/2024 10:27 AM EST Braydon Sykes MD LAB BLOOD ORDERABLES Final Res ult Performing Organization Address [facility]/ZIP Co de Phone Number [facility] [address] [place] [address], [place] [phone] * (ABNORMAL) Comprehensive metabolic panel (06/03/2024 6:18 AM EST) [facility] Sodium 136 133 - 145 mmol/L LAB [...] [facility] Comment:Calculation based on the [...] Res ult [facility] [address] [place] [address], documented in this encounter Visit Diagnoses Diagnosis Encounter for other general examination documented in this encounter Care Teams Button Bradder Relationship Specialty Start Date End Date Braydon Sykes MD [address] [place] [address] PCP - General Internal Medicine 06/03/24 documented as of this encounter
--- OUTSIDE RECORDS SUMMARY | 2025-03-21 13:04 | XMS_ITS | Encounter Summary ---
Author Organization [facility] Address [address] [place] [address] Phone Care Team Providers Care Slot Floorman Name Role Phone Thee Tay MD Primary Care Provider [phone] Reason for Referral * Surgical (Within 1 month) - Closed Specialty Diagnoses / Procedures Referred By Carrie campos Referred To Contact depalletizer operator Diagnoses Temporomandibular joint disorder (TMJ) System, Provider Not In, PhD [address] [address] Phone: tel: Referral ID Status Reason Start Date Expiration Date Visits Re quested Visits Authorized [id number] Closed 01/14/2017 01/14/2018 1 1 Scheduling Instructions For dental clearance related to cardiac surgery, joint replacement surgery, oncologic care and organ transplantation please refer to Oral Medicine or Dentistry. Patients should present to appointment with any relavant office notes, imaging, and pathology results. Encounter Details Date Type Department Care Team (Latest Contact Info) Description 01/14/2017 Transcribe Orders [facility] Referral Management [address] [place] [id number] Unknown, Unknown, Temporomandibular joint disorder (TMJ) (Primary [...] Associated Diagnoses Order Schedule Amb[facility] referral to [facility] Outpatient Referral Routine Temporomandibular joint disorder (TMJ) Ordered: 01/14/2017 documented as of this encounter Visit Diagnoses Diagnosis Temporomandibular joint disorder (TMJ)- Primary documented in this encounter Care Teams Slot Floorman Relationship Specialty Start Date End Date Thee Tay MD [facility] [place] [address] PCP - General Internal Medicine 01/13/17 documented as of this encounter Additional Source Comments The information contained in this document represents components of the legal health record. It is not the complete legal health record.[facility]
--- OUTSIDE RECORDS SUMMARY | 2025-03-21 13:04 | XMS_ITS | Clinical Summary ---
Author Organization [address] [facility] Address [address] [place] [address] Phone Care Team Providers Care Transport Conductor Name Role Phone Braydon Sykes MD Primary Care Provider [phone] Social History Tobacco Use Types Packs/Day Years [...] topic Insurance MEDICAID - [place] Care Teams Transport Conductor Relationship Specialty Start Date End Date Braydon Sykes MD [address] [place] [address] PCP - General Internal Medicine 06/03/24
--- OUTSIDE RECORDS SUMMARY | 2025-03-21 13:04 | XMS_ITS | Encounter Summary ---
Author Organization [facility] Address [address] [place] [address] Care Team Providers Care Main Line Station Engineer Name Role Phone Braydon Sykes MD Primary Care Provider [phone] Encounter Details Date Type Department Care Team (Late st Contact Info) Description 06/09/2024 Lab Requisition [facility] - Main Lab [address] [place] [address] Braydon Sykes MD [address] [place] [phone] Encounter for other general examination Social History [...] AM EST) WBC 5.6 4.8 - 10.8 K/[facility] LAB HEMETOLOGY METHOD 06/09/2024 8:24 AM EST [facility] LAB RBC 4.40 3.80 - 4.80 M/[facility] LAB HEMETOLOGY METHOD 06/09/2024 8:24 AM EST [facility] Hemoglobin 12.1 11.5 [...] MD LAB BLOOD ORDERABLES Final Res ult [facility] [address] [place] [address], * Basic metabolic panel (06/09/2024 6:00 AM [...] [facility] Comment:Calculation based on the [...] LAB BLOOD ORDERABLES Final Res ult [facility] ([facility] [address] [place] [address], documented in this encounter Visit Diagnoses Diagnosis Encounter for other general examination documented in this encounter Care Teams Main Line Station Engineer Relationship Specialty Start Date End Date Braydon Sykes MD [address] [place] [address] PCP - General Internal Medicine 06/03/24 documented as of this encounter
== END 2025-03-21 11:17 | disposition home or self-care (01) ==
LOC: HO.HGS 10:28
PROVIDERS: PCP Internal Medicine; Visit Provider Surgery
DX: K80.20 Calculus of gallbladder without cholecystitis without obstruction (principal); K52.9 Noninfective gastroenteritis and colitis, unspecified
CPT/HCPCS: 99214

== ENCOUNTER → 2025-03-21 10:27 | Outpatient (BNVA) | payer OTHER, SELFPAY | PROVIDERS: PCP Internal Medicine; Visit Provider Surgery | DX: K80.20 Calculus of gallbladder without cholecystitis without obstruction (principal); K52.9 Noninfective gastroenteritis and colitis, unspecified | CPT/HCPCS: 99212 ==

== ENCOUNTER 2025-04-09 00:11 | Emergency (ER) | payer OTHER, SELFPAY ==
--- NOTE | 2025-04-09 | ECG_ITS ---
Test Reason : CHEST PAIN Blood Pressure : */* mmHG Vent. Rate : 91 BPM Atrial Rate : 91 BPM P-R Int : 152 ms QRS Dur : 80 ms QT Int : 356 ms P-R-T Axes : 32 -18 10 degrees QTcB Int : 437 ms Normal sinus rhythm Septal infarct (cited on or before 06-Nov-2023) Possible Lateral infarct (cited on or before 06-Nov-2023) Abnormal ECG When compared with ECG of 21-Jan-2025 13:44, No significant change was found Referred By: Generic ED Physician Electronically Signed By: JEFFERY NASH MD
--- NOTE | ~2025-04-09 | US_ITS ---
CLINICAL HISTORY: RUQ pain, known gallstone US abdomen limited Comparison: Ultrasound of the abdomen from 01/21/2025 Findings: Of the majority of the pancreas is obscured by overlying bowel gas. Coarsened echotexture of the liver as can be seen with underlying liver parenchymal disease. Liver and right kidney are partly obscured by side of the artifacts. Imaged liver measures 19.7 cm. Increased echogenicity of the liver can be seen with steatotic change. No definite hydronephrosis of the right kidney, which measures 10 cm long axis. Echogenic stones and sludge redemonstrated in the imaged gallbladder lumen. Borderline wall thickening of the gallbladder likely due to underdistention of the time of the imaging. No definite pericholecystic fluid accounting for artifacts and shadowing. Sonographic Martinez's sign is not elicited by the technologist. Imaged CBD measures 6 mm diameter. No right upper quadrant ascites or right pleural effusion in the [id number]. Hepatopetal flow of the imaged main portal vein. Prominent bowel-gas noted. IMPRESSION: 1. Cholelithiasis by ultrasound. 2. Imaged CBD is nondilated. This document has been electronically signed by: Zackary Mendez MD on 04/09/2025 03:10:06
--- NOTE | ~2025-04-09 | XR_ITS ---
CLINICAL HISTORY: chest pain 1 view chest x-ray Comparison: Chest CT from 01/21/2025. Findings: No consolidation or effusion. Mild right basilar atelectasis. No pneumothorax. Mild-moderate emphysematous changes. Mild/borderline cardiomegaly. Proximal left humerus deformities are nonspecific and likely old/chronic given sclerosis. IMPRESSION: No consolidation. This document has been electronically signed by: Zackary Mendez MD on 04/09/2025 02:56:17
[2025-04-09 00:13] VITALS: BP 120/65; PULSE 79; O2SAT 99
[2025-04-09 00:17] VITALS: BP 121/72; PULSE 89; RESP 17; TEMP 36.7; O2SAT 96; BMI 42.6
[2025-04-09 00:42] LABS: MANUAL DIFF FLAG NO
[2025-04-09 00:47] LABS: Hematocrit 36.6 % (37.0-47.0); Hemoglobin 12.3 g/dl (12.0-16.0); Imm Gran Abs Auto 0.02 X10*3/uL (0.00-0.03); Imm Gran Pct Auto 0.2 % (0.0-0.4); Lymphocytes Absolute Auto 2.3 X10*3/uL (1.2-4.9); Mean Corpuscular HGB Conc 33.6 g/dl (31.0-35.0); Mean Corpuscular Hemoglobin 27.1 pg (27.0-33.0); Mean Corpuscular Volume 80.6 fL (80.0-98.0); NRBC Abs Auto 0.000 X10*3/uL (0.0-0.012); NRBC Pct Auto 0.0 /100WBC (0.0-0.2); Platelet Count 268 X10*3/uL (160-400); Red Blood Count 4.54 X10*6/uL (4.20-5.50); White Blood Count 9.5 X10*3/uL (4.8-10.8)
--- OUTSIDE RECORDS SUMMARY | 2025-04-09 00:50 | XMS_ITS | Clinical Summary ---
Author Organization [address] [facility] Address [address] [place] [address] Phone Care Team Providers Care Equipment Operat0R Name Role Phone Braydon Sykes MD Primary Care Provider [phone] Social History Tobacco Use Types Packs/Day Years [...] topic Insurance [place]ICA[place] - [place] Care Teams Equipment Operat0R Relationship Specialty Start Date End Date Braydon Sykes MD [address] [place] [id number] PCP - General Internal Medicine 06/03/24
--- OUTSIDE RECORDS SUMMARY | 2025-04-09 00:50 | XMS_ITS | Encounter Summary ---
Author Organization [facility] Address [address] [place] [address] Care Team Providers Care Sales Promotion Representative Name Role Phone Braydon Sykes MD Primary Care Provider [phone] Encounter Details Date Type Department Care Team (Late st Contact Info) Description 06/03/2024 Lab Requisition [facility] - Main Lab [address] [facility] [place] [address] Braydon Sykes MD [address] [place] [address] Encounter for other general examination Social History [...] AM EST) WBC 5.6 4.8 - 10.8 K/[facility] LAB HEMETOLOGY METHOD 06/03/2024 11:27 AM [facility] LAB RBC 4.80 3.80 - 4.80 M/[facility] LAB HEMETOLOGY METHOD 06/03/2024 11:27 AM [...] CENTER LAB Platelets 199 130 - 400 K/[facility] LAB HEMETOLOGY METHOD 06/03/2024 11:27 AM [facility] LAB MPV 10.8 7.0 - 11.0 [place] LAB HEMETOLOGY METHOD 06/03/2024 11:27 AM [facility] LAB NRBC 0.0 <1.0 % LAB HEMETOLOGY METHOD 06/03/2024 11:27 AM [facility] LAB NRBC Absolute 0.00 <0.10 K/[facility] LAB HEMETOLOGY METHOD 06/03/2024 11:27 AM [...] ORDERABLES Final Res ult Performing Organization Address [facility]/ZIP Co de Phone Number [facility] [address] [place] [address], [place] [phone] * Magnesium (06/03/2024 6:18 AM EST) Pathologist [facility] Magnesium 2.3 1.9 - 2.6 mg/dL LAB CHEMISTRY METHOD 06/03/2024 11:57 AM EST [facility] Blood Venous blood specimen / Unknown Venipuncture / Unknown 06/03/2024 6:18 AM EST 06/03/2024 10:27 AM EST Braydon Sykes MD LAB BLOOD ORDERABLES Final Res ult Performing Organization Address [facility]/ZIP Co de Phone Number [facility] [address] [place] [address], [place] [phone] * (ABNORMAL) Comprehensive metabolic panel (06/03/2024 6:18 AM EST) [facility] Sodium 136 133 - 145 mmol/L LAB [...] Res ult [facility] [address] [place] [address], documented in this encounter Visit Diagnoses Diagnosis Encounter for other general examination documented in this encounter Care Teams Sales Promotion Representative Relationship Specialty Start Date End Date Braydon Sykes MD [address] [place] [address] PCP - General Internal Medicine 06/03/24 documented as of this encounter
--- OUTSIDE RECORDS SUMMARY | 2025-04-09 00:50 | XMS_ITS | Encounter Summary ---
Author Organization [facility] Address [address] [place] [address] Phone Care Team Providers Care Rice Dryer Mechanic Name Role Phone Thee Tay MD Primary Care Provider [phone] Reason for Referral * Surgical (Within 1 month) - Closed Specialty Diagnoses / Procedures Referred By Carrie campos Referred To Contact sewing machine maintenance mechanic Diagnoses Temporomandibular joint disorder (TMJ) System, Provider Not In, PhD [address] [address] Phone: tel: Referral ID Status Reason Start Date Expiration Date Visits Re quested Visits Authorized [id number] Closed 01/14/2017 01/14/2018 1 1 Scheduling Instructions For dental clearance related to cardiac surgery, joint replacement surgery, oncologic care and organ transplantation please refer to Oral Medicine or Dentistry. Patients should present to appointment with any relavant office notes, imaging, and pathology results. Encounter Details Date Type Department Care Team (Latest Contact Info) Description 01/14/2017 Transcribe Orders [facility] Referral Management [address] [place] [address] Unknown, Unknown, Temporomandibular joint disorder (TMJ) (Primary [...] Diagnoses Order Schedule Amb[facility] referral [place] [facility] [place] [facility] Outpatient Referral Routine Temporomandibular joint disorder (TMJ) Ordered: 01/14/2017 documented as of this encounter Visit Diagnoses Diagnosis Temporomandibular joint disorder (TMJ)- Primary documented in this encounter Care Teams Rice Dryer Mechanic Relationship Specialty Start Date End Date Thee Tay MD [facility] [place] [address] PCP - General Internal Medicine 01/13/17 documented as of this encounter Additional Source Comments The information contained in this document represents components of the legal health record. It is not the complete legal health record.[facility]
--- OUTSIDE RECORDS SUMMARY | 2025-04-09 00:50 | XMS_ITS | Clinical Summary ---
Author Organization [facility] Address [address] [place] [address] Phone Care Team Providers Care Voltage Tester Name Role Phone Thee Tay MD Primary Care Provider [phone] Social History Tobacco Use Types Packs/Day Years [...] [place] [id number] [facility] ex[facility]utterCalHEALTH M[facility] CareParent [facility] MCO MONTPELIERAgralogics [facility] MCO MONTPELIERChongqing [employer] MCO Care Teams Voltage Tester Relationship Specialty Start Date End Date Thee Tay MD 1960 [facility] [address] [place] [address] PCP - General Internal Medicine 01/13/17 Additional Source Comments The information contained in this document represents components of the legal health record. It is not the complete legal health record.[facility]
--- OUTSIDE RECORDS SUMMARY | 2025-04-09 00:50 | XMS_ITS | Encounter Summary ---
Author Organization [facility] Address [address] [place] [address] Care Team Providers Care Slasher Tender Helper Name Role Phone Braydon Sykes MD Primary Care Provider [phone] Encounter Details Date Type Department Care Team (Late st Contact Info) Description 06/09/2024 Lab Requisition [facility] - Main Lab [address] [place] [address] Braydon Sykes MD [address] [place] [address] Encounter for other general examination Social History [...] AM EST) WBC 5.6 4.8 - 10.8 K/[facility] LAB HEMETOLOGY METHOD 06/09/2024 8:24 AM EST [facility] LAB RBC 4.40 3.80 - 4.80 M/[facility] LAB HEMETOLOGY METHOD 06/09/2024 8:24 AM EST [facility] LAB Hemoglobin 12.1 11.5 - [...] Res ult [facility] [address] [place] [address], * Basic metabolic panel (06/09/2024 6:00 AM [...] [facility] Comment:Calculation based on the [...] ORDERABLES Final Res ult [facility] ([facility]) [facility] [address] [place] [address], documented in this encounter Visit Diagnoses Diagnosis Encounter for other general examination documented in this encounter Care Teams Slasher Tender Helper Relationship Specialty Start Date End Date Braydon Sykes MD [address] [place] [address] PCP - General Internal Medicine 06/03/24 documented as of this encounter
[2025-04-09 00:58] LABS: Alanine Aminotransferase 43 U/L (0-31); Albumin Level 3.9 g/dL (3.5-5.0); Alkaline Phosphatase 156 U/L (39-117); Anion Gap 14 (12-20); Aspartate Amino Transferase 39 U/L (5-31); Blood Urea Nitrogen 12 mg/dL (9-16); Calcium 9.1 mg/dL (8.4-10.2); Carbon Dioxide 17 mmol/L (22-29); Chloride 112 mmol/L (96-108); Cholesterol 183 mg/dL (<200); Creatinine Clr Calc Pharmacy 124.0; Estimated Glomerular Filt Rate > 60; HDL Cholesterol 46 mg/dL (>40); Lipase 15 U/L (8-78); Magnesium 2.0 mg/dL (1.6-2.6); Potassium 3.6 mmol/L (3.3-5.1); Sodium 139 mmol/L (135-145); Total Protein 6.2 g/dL (6.5-8.0); Triglycerides 130 mg/dL (<150)
--- NOTE | 2025-04-09 00:59 | ED_ITS ---
HPI - Chest Pain General Chief Complaint: Chest Pain Stated Complaint: CHEST PAIN Time Seen by Provider: 04/09/25 00:59 Source: patient and EMS Mode of arrival: EMS Limitations: no limitations History of Present Illness ED Provider: Dr. Sandra Portillo HPI narrative: 55-year-old female with a history of GERD, hypertension, asthma, COPD, hypothyroidism, depression/PTSD, gallstones (pending cholecystectomy), and chronic back/shoulder pain who presented from home via EMS for severe left-sided abdominal pain radiating to her back and new chest pain. She was resting on the sofa when the pain began, accompanied by bilateral shoulder and hip pain, shortness of breath, and a sensation of elevated blood pressure (reported home BP > 200/100 mm Hg). EMS administered one dose of sublingual nitroglycerin with marked improvement in chest and shoulder pain. She reports month-long back pain for which a nuclear stress test is scheduled on 08/27 but has not yet been completed; she was told by her doctor that gallbladder surgery will be scheduled after cardiac clearance/stress test. She denies recent use of prednisone; uses only a steroid inhaler for COPD/asthma. Current home medications include lisinopril (recently increased from 5 mg to 10 mg), levothyroxine, OTC arthritis medication (ineffective), a muscle relaxant, and Ativan at night for sleep. She previously took a daily baby aspirin but ran out a few weeks ago. Associated symptoms today: shortness of breath, light-headedness, dry cough, occasional nausea. She denies vomiting, fever, diarrhea, constipation. She reports regular bowel movements since starting pancreatic medication, which she attributes to the medication. She denies hematuria, dysuria, or leg swelling. She reports mild calf tenderness when palpated. Related Data Home Medications ?Medication ?Instructions ?Recorded ?Confirmed acetaminophen 500 mg tablet 1,000 mg PO Q6H PRN Pain 0 05/29/24 03/02/25 albuterol sulfate 90 mcg/actuation 2 puff inhalation Q 4H PRN 05/29/24 03/02/25 aerosol inhaler (Ventolin HFA) Shortness Of Breath Or Wheezing duloxetine 30 mg capsule,delayed 30 mg PO BEDTIME 05/2903/21/25 release aspirin 81 mg tablet 81 mg PO DAILY 11/22/2410/19 duloxetine 20 mg capsule,delayed 20 mg PO BEDTIME 10/2603/21/25 release lorazepam 1 mg tablet 1 mg PO DAILY PRN Anxiety 03/21/25 fluticasone propionate 50 2 spray intranasal BID PRN 0 01/22/25 03/21/25 mcg/actuation nasal allergies spray,suspension (Flonase Allergy Relief) melatonin 5 mg tablet 5 mg PO BEDTIME Sleep 03/21/25 eyhdkfqr-buj-kyck 18 mg-FA 400 1 tab PO DAILY 01/22/25 03/21/25 mcg-calcium 500 mg-vit K 50 mcg tablet (Women's Multivitamin) oxcarbazepine 150 mg tablet 150 mg PO ONCE 03/02/25 Previous Rx's ?Medication ?Instructions ?Recorded fall detection monitor #1 ea 07/08/24 Blood pressure monitor #1 ea 07/13/24 loratadine 10 mg tablet 10 mg PO DAILY 30 days #30 t abs 10/11/24 ipratropium 0.5 mg-albuterol 3 mg 3 ml inhalation Q4-6 H PRN wheezing 10/12/24 (2.5 mg base)/3 mL nebulization 30 days #270 mL soln topiramate 25 mg tablet 25 mg PO BID #60 tabs famotidine 40 mg tablet (Pepcid) 40 mg PO BEDTIME #30 tabs 11/22/24 fluticasone propionate 230 2 puff inhalation Q12H #12 grams 03/06/25 mcg-salmeterol 21 mcg/actuation HFA inhaler (Advair HFA) tgkqnx-orncbhfb-xerlabv 2 cap PO BID #120 caps 03/07 (pork)36,000-114,000-180k unit capsule,del rel (Creon) montelukast 10 mg tablet 10 mg PO BEDTIME #90 tabs cyclobenzaprine 5 mg tablet 5 mg PO .qhs PRN left scia torsten 03/17/25 pain 90 days #90 tabs lisinopril 10 mg tablet 10 mg PO DAILY #90 tabs 02/26 09/18 dexlansoprazole 60 mg 60 mg PO DAILY 90 days #90 c aps 03/30/25 capsule,biphase delayed release (Dexilant) levothyroxine 150 mcg tablet 150 mcg PO DAILY@0600 #90 tabs 04/09/25 nitroglycerin 0.4 mg sublingual 0.4 mg sublingual Q5M PRN chest 04/09/25 tablet pain #10 tabs Allergies Allergy/AdvReac Type Severity Reaction Status Date / Time niacin (Niaspan Allergy Intermediate skin Verified 04/09/25 00:21 Extended-Release) blisters tramadol Allergy Intermediate seizures Verified 04/09/25 00:21 barley (BARLEY) Allergy Unknown UNKNOWN Verified 04/09/25 00:21 fluticasone (Advair Diskus) Allergy Unknown Shortness Verified 04/09/25 00:21 of Breath ibuprofen Allergy Unknown Swelling Verified 04/09/25 00:21 naratriptan Allergy Unknown unknown Verified 04/09/25 00:21 Penicillins (PENICILLINS) Allergy Unknown Unknown Verified 04/09/25 00:21 sumatriptan Allergy Unknown unknown Verified 04/09/25 00:21 trazodone (TRAZODONE) Allergy Unknown UNKNOWN Verified 04/09/25 00:21 omalizumab (From Xolair) AdvReac Severe Anaphylaxis Verified 04/09/25 00:21 rubber, unspecified AdvReac Severe Unknown Verified 04/09/25 00:21 equate cough drops sugar free Allergy Mild Unknown Uncoded 04/09/25 00:21 silicone AdvReac Severe Unknown Uncoded 04/09/25 00:21 vaseline AdvReac Severe hives Uncoded 04/09/25 00:21 Review of Systems 2 Review of Systems: as per HPI, full review of systems performed and negative but for the above mentioned pertinent positives and negatives. [facility] Past Medical History Medical History Elevated blood pressure reading in office with diagnosis of hypertension Diarrhea Gall stones Colon cancer screening Hospital discharge follow-up Other specified hypothyroidism Left sided abdominal pain Influenza A H1N1 infection Stool incontinence Shoulder pain Anemia Bronchitis due to COVID-19 virus COVID Acute pneumonia Work related injury Acute diarrhea Paresthesias in left hand Dysuria PFO (patent foramen ovale) Shortness of breath Community acquired pneumonia Chronic idiopathic constipation Pre-op examination Encounter for routine gynecological examination LFT elevation Encounter for general adult medical examination with abnormal findings Respiratory tract congestion with cough Hospital discharge follow-up COVID-19 Tracheobronchitis COVID-19 Iron deficiency anemia Shoulder pain, right Nausea and vomiting PFO (patent foramen ovale) History of transesophageal echocardiography (LAN) Colitis Abnormal angiogram of head COVID-19 Asthma Thyroid disease GERD (gastroesophageal reflux disease) Anemia Aneurysm Surgical History History of surgery of uterus H/O endoscopy History of H/O brain surgery History of colonoscopy Family History Family History Father Diabetes Arthritis Diverticulitis Leukemia Mental health disorder Lung cancer Mother Anemia Arthritis Colon polyps Myocardial infarction Brother Crohn's disease Testicular cancer Brother Cancer Paternal Grandfather Leukemia Other Substance use disorder Social History Social History Household Members: Spouse and Children Household Members Other:: boyfriend and his son Housing: House Are you a primary childcare teacher to a significant other at home: No Do you presently have visiting nurse or other home services: No Alcohol intake: former Comment: Refuses fall risk alarms, ambulates with steady gait. Patient Tobacco Use Status: Former Tobacco user Tobacco use type: Cigarette Cigarettes Per Day: 10 e-Cigarette/Vaping Use: Never Used Second Hand Smoke Exposure: No Substance Use Type: Marijuana Advance Directives Date on File: 04/09/21 service: No 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al status: employed 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: [employer]/ right hand dominant Cognitive needs: No Hearing needs: No Vision needs: Yes Physical Exam 2 Exam: Exam: GENERAL: Ill-Appearing, appears uncomfortable. SKIN: Normal skin color for ethnicity, warm, dry, no rashes noted. HEENT:? Normocephalic, atraumatic, no stridor, dry mucous membranes, dentition intact, EOMI. NECK: Soft, supple, full ROM, midline structures nontender, no step-offs, no deformities, no lymphadenopathy. CHEST: Heart regular rhythm, no murmurs, symmetric chest rise and fall. PULMONARY: Clear to auscultation bilaterally, diminished at the bases, no labored breathing, no wheezes/rhales/rhonchi. ABDOMINAL: Soft, nondistended, nontender, positive bowel sounds in all quadrants. : Deferred. MUSCULOSKELETAL: Normal tone, full range of motion, no deformities, no peripheral edema. NEURO: Alert and oriented x3, CN II through XII intact, equal strength and sensation bilateral upper and lower extremities, no focal neurologic deficits.? PSYCHIATRIC: Flat affect, fluid speech, good eye contact and appropriate demeanor. Vital Signs: Vital Signs: Last Vital Signs Temp 97.7 F 04/09/25 06:32 Pulse 83 04/09/25 06:32 Resp 14 04/09/25 06:32 BP 115/58 L 04/09/25 06:32 Pulse Ox 96 04/09/25 06:32 O2 Del Method Room Air 04/09/25 06:32 BMI result Body Mass Index 42.6 Medications Administered Discontinued Medications Generic Name Dose Route Start Last Admin Trade Name Yoli PRN Reason Stop Dose Admin Acetaminophen 650 mg 04/09/25 01:43 04/09/25 01:56 Acetaminophen 325 Mg Tablet PO 04/09/25 01:44 650 mg ONCE ONE Administration Medical Decision Making Medical Decision Making MDM Narrative: Patient presents today with a chief complaint of chest pain. Differential diagnosis includes, but is not limited to, acute coronary syndrome, musculoskeletal pain, pneumothorax, GERD, pleurisy, pulmonary embolism, dissection, among others. I will order EKG, chest x-ray, laboratory workup including cardiac enzymes to further evaluate for etiology. Diagnosis: 1. Chest pain, rule out acute coronary syndrome (ACS) and aortic dissection. 2. Left-sided abdominal pain, likely biliary colic versus other GI etiology (known gallstones). 3. Hypertension. 4. Chronic musculoskeletal pain (back, shoulders, hips). Plan: - Admit to hospital for observation. - Cardiology consult for expedited stress test and evaluation of chest pain. - Obtain serial cardiac enzymes; trend troponin. - D-dimer: if elevated, proceed with CT angiography of chest to evaluate for PE/aortic dissection. - Trial Tylenol for headache as discussed; reassess if headache persists. - Reassess symptoms; patient instructed to alert staff if pain returns or worsens. ED Course Initial EKG: no evidence of acute myocardial infarction. Labs ordered: D-dimer to evaluate for intrathoracic thromboembolism/aortic dissection; cardiac enzymes to assess myocardial stress/injury. Medications: 1 dose nitroglycerin by EMS with symptomatic relief; Tylenol planned for headache (patient denies headache at time of evaluation). Imaging: CT chest planned only if D-dimer elevated. Consults: Cardiology to be consulted for possible inpatient stress testing and further evaluation. Cardiac enzymes are flat. D-dimer is low. Very low suspicion for aortic dissection or pulmonary embolism. Tylenol improved her headache. Nitroglycerin improved her chest discomfort completely. We had an extensive discussion regarding risks and benefits, hospitalization versus discharge and ultimately, using shared decision-making, patient opted for discharge home and outpatient follow up. I suspect some of this is GI related versus early viral syndrome. Patient understands and agrees with plan for discharge. Discharged home in stable condition. Differential Diagnosis Differential Diagnoses: The differential diagnosis associated with the presentation includes (As above) Admission/Observation Consideration of admission/observation: Escalation of care including admission/observation considered Consult Healthcare Provider Management of the patient was discussed with: Hospitalist Lab Data MDM Lab Attestation statement: I reviewed the patient's lab results. 04/09/25 00:35 04/09/25 00:35 Labs: Lab Results 04/09/25 04/09/25 04/09/25 Range/Units 00:35 01:46 02:02 WBC 9.5 (4.8-10.8) X10*3/uL RBC 4.54 (4.20-5.50) X10*6/uL Hgb 12.3 (12.0-16.0) g/dl Hct 36.6 L (37.0-47.0) % MCV 80.6 (80.0-98.0) fL MCH 27.1 (27.0-33.0) pg MCHC 33.6 (31.0-35.0) g/dl RDW 14.2 (11.0-16.0) % Plt Count 268 (160-400) X10*3/uL MPV 9.8 (9.4-12.3) fL Immature Gran % (Auto) 0.2 (0.0-0.4) % Neut % (Auto) 66.9 (45-73) % Lymph % (Auto) 24.3 (20-40) % [place] % (Auto) 6.5 (2-11) % Eos % (Auto) 1.7 (0-4) % Baso % (Auto) 0.4 (0-2) % Lymph # (Auto) 2.3 (1.2-4.9) X10*3/uL [place] # (Auto) 0.6 (0.1-1.2) X10*3/uL Eos # (Auto) 0.2 (0.0-0.4) X10*3/uL Baso # (Auto) 0.0 (0.0-0.2) X10*3/uL Abs Immat Gran (auto) 0.02 (0.00-0.03) X10*3/uL Absolute Neuts (auto) 6.3 (2.0-8.3) x10*3/uL Absolute Nucleated RBC 0.000 (0.0-0.012) X10*3/uL Nucleated RBC % (auto) 0.0 (0.0-0.2) /100WBC PT 12.3 (11.2-13.5) SEC INR 1.0 (0.9-1.1) D-Dimer High Sensitivty < 150 NG/ML Sodium 139 (135-145) mmol/L Potassium 3.6 (3.3-5.1) mmol/L Chloride 112 H (96-108) mmol/L Carbon Dioxide 17 L (22-29) mmol/L Anion Gap 14 (12-20) BUN 12 (9-16) mg/dL Creatinine 0.66 (0.5-1.4) mg/dL Estim Creat Clear Calc 124.0 Estimated GFR > 60 Random Glucose 117 H (60-115) mg/dL Calcium 9.1 (8.4-10.2) mg/dL Magnesium 2.0 (1.6-2.6) mg/dL Total Bilirubin 0.3 (0.0-1.0) mg/dL AST 39 H (5-31) U/L ALT 43 H (0-31) U/L Alkaline Phosphatase 156 H (39-117) U/L Troponin I High Sens < 2.7 D (<3.5-17.0) ng/L Total Protein 6.2 L (6.5-8.0) g/dL Albumin 3.9 (3.5-5.0) g/dL Triglycerides 130 (<150) mg/dL Cholesterol 183 (<200) mg/dL LDL Cholesterol, Calc 111 H (<100) mg/dL HDL Cholesterol 46 (>40) mg/dL Lipase 15 (8-78) U/L Urine Color Yellow Urine Appearance Clear Urine pH 6.0 (5.0-9.0) Ur Specific [place] 1.010 (1.005-1.025) Urine Protein Negative (Neg-Trace) mg/dL Urine Glucose (UA) Negative (Negative) mg/dL Urine Ketones Negative (Negative) mg/dL Urine Blood Negative (Negative) Urine Nitrite Negative (Negative) Ur Leukocyte Esterase Negative (Negative) Urine RBC 0-2 (0-2) /HPF Urine WBC 0-5 (0-5) /HPF Ur Squamous Epith Cells 0-2 (0-2) /HPF Urine Bacteria Trace (None Seen) Hyaline Casts 0-2 (0-2) /LPF 04/09/25 Range/Units 02:47 WBC (4.8-10.8) X10*3/uL RBC (4.20-5.50) X10*6/uL Hgb (12.0-16.0) g/dl Hct (37.0-47.0) % MCV (80.0-98.0) fL MCH (27.0-33.0) pg MCHC (31.0-35.0) g/dl RDW (11.0-16.0) % Plt Count (160-400) X10*3/uL MPV (9.4-12.3) fL Immature Gran % (Auto) (0.0-0.4) % Neut % (Auto) (45-73) % Lymph % (Auto) (20-40) % [place] % (Auto) (2-11) % Eos % (Auto) (0-4) % Baso % (Auto) (0-2) % Lymph # (Auto) (1.2-4.9) X10*3/uL [place] # (Auto) (0.1-1.2) X10*3/uL Eos # (Auto) (0.0-0.4) X10*3/uL Baso # (Auto) (0.0-0.2) X10*3/uL Abs Immat Gran (auto) (0.00-0.03) X10*3/uL Absolute Neuts (auto) (2.0-8.3) x10*3/uL Absolute Nucleated RBC (0.0-0.012) X10*3/uL Nucleated RBC % (auto) (0.0-0.2) /100WBC PT (11.2-13.5) SEC INR (0.9-1.1) D-Dimer High Sensitivty NG/ML Sodium (135-145) mmol/L Potassium (3.3-5.1) mmol/L Chloride (96-108) mmol/L Carbon Dioxide (22-29) mmol/L Anion Gap (12-20) BUN (9-16) mg/dL Creatinine (0.5-1.4) mg/dL Estim Creat Clear Calc Estimated GFR Random Glucose (60-115) mg/dL Calcium (8.4-10.2) mg/dL Magnesium (1.6-2.6) mg/dL Total Bilirubin (0.0-1.0) mg/dL AST (5-31) U/L ALT (0-31) U/L Alkaline Phosphatase (39-117) U/L Troponin I High Sens < 2.7 (<3.5-17.0) ng/L Total Protein (6.5-8.0) g/dL Albumin (3.5-5.0) g/dL Triglycerides (<150) mg/dL Cholesterol (<200) mg/dL LDL Cholesterol, Calc (<100) mg/dL HDL Cholesterol (>40) mg/dL Lipase (8-78) U/L Urine Color Urine Appearance Urine pH (5.0-9.0) Ur Specific [place] (1.005-1.025) Urine Protein (Neg-Trace) mg/dL Urine Glucose (UA) (Negative) mg/dL Urine Ketones (Negative) mg/dL Urine Blood (Negative) Urine Nitrite (Negative) Ur Leukocyte Esterase (Negative) Urine RBC (0-2) /HPF Urine WBC (0-5) /HPF Ur Squamous Epith Cells (0-2) /HPF Urine Bacteria (None Seen) Hyaline Casts (0-2) /LPF Independent Interpretation I performed an independent interpretation of an: EKG and Plain X-Ray Radiology Impression Discussion of test interpretation with radiology: I have reviewed the radiologist's reading. Radiologist Impression: 1 view chest x-ray Comparison: Chest CT from 01/21/2025. Findings: No consolidation or effusion. Mild right basilar atelectasis. No pneumothorax. Mild-moderate emphysematous changes. Mild/borderline cardiomegaly. Proximal left humerus deformities are nonspecific and likely old/chronic given sclerosis. IMPRESSION: No consolidation. Independent Historian Clinical information obtained from an independent historian. History obtained from or confirmed by: EMS External Record Review External record reviewed: Inpatient record Prescription Management I considered prescription management with: Pain Medication Chronic Conditions Patient?s care impacted by: Hypertension and Other (COPD, aneurysm) Social Determinants Patient?s care significantly limited by Social Determinants of Health including: Other Social Determinant of Health Discharge Plan Discharge Clinical Impression: Recurrent biliary colic, Acute chest pain Patient Disposition: Home, Self-Care Instructions: Chest Pain (ED), Biliary Colic (ED) Additional Instructions: Keep your appointment with your hogshead inspector this month for the stress test. Do not take nitroglycerine if your blood pressure is less than 130/80. Do not take more than 3 doses at a time. Return to the hospital sooner if you develop any new or worsening symptoms including: Worsening chest pain despite medication, fevers greater than 100?, cough productive of green or brown sputum, any new symptom that concerns you. Call 911 with any medical emergency. Prescriptions: New nitroglycerin 0.4 mg tablet, sublingual 0.4 mg sublingual Q5M PRN (Reason: chest pain) Qty: 10 0RF Rx Instructions: do not exceed 3 doses per episode No Action (DME) fall detection monitor See Rx Instructions .Route .MEDSUPPLY Qty: 1 0RF Rx Instructions: As directed (DME) Blood pressure monitor See Rx Instructions .Route .MEDSUPPLY Qty: 1 0RF Rx Instructions: As directed loratadine 10 mg tablet 10 mg PO DAILY 30 Days Qty: 30 6RF ipratropium-albuterol 0.5 mg-3 mg(2.5 mg base)/3 mL solution for nebulization 3 ml inhalation Q4-6H PRN (Reason: wheezing) 30 Days Qty: 270 6RF topiramate 25 mg tablet 25 mg PO BID Qty: 60 3RF fluticasone propion-salmeterol [Advair HFA] 230-21 mcg/actuation HFA aerosol inhaler 2 puff inhalation Q12H Qty: 12 0RF Creon 36,000-114,000- 180,000 unit capsule,delayed release(DR/EC) 2 cap PO BID Qty: 120 3RF Rx Instructions: administer with meals and/or snacks montelukast 10 mg tablet 10 mg PO BEDTIME Qty: 90 0RF cyclobenzaprine 5 mg tablet 5 mg PO .qhs PRN (Reason: left sciatica pain) 90 Days Qty: 90 0RF lisinopril 10 mg tablet 10 mg PO DAILY Qty: 90 1RF Rx Instructions: Dose increased dexlansoprazole [Dexilant] 60 mg capsule,biphase delayed releas 60 mg PO DAILY 90 Days Qty: 90 0RF levothyroxine 150 mcg tablet 150 mcg PO DAILY@0600 Qty: 90 0RF acetaminophen 500 mg Tablet 1,000 mg PO Q6H PRN (Reason: Pain) albuterol sulfate [Ventolin HFA] 90 mcg/actuation HFA aerosol inhaler 2 puff inhalation Q4H PRN (Reason: Shortness Of Breath Or Wheezing) fluticasone propionate [Flonase Allergy Relief] 50 mcg/actuation spray,suspension 2 spray intranasal BID PRN (Reason: allergies) Rx Instructions: administer into each nostril melatonin 5 mg Tablet 5 mg PO BEDTIME Women's Multivitamin 18 mg-400 mcg- 500 mg-50 mcg Tablet 1 tab PO DAILY lorazepam 1 mg tablet 1 mg PO DAILY PRN (Reason: Anxiety) aspirin 81 mg tablet 81 mg PO DAILY famotidine [Pepcid] 40 mg tablet 40 mg PO BEDTIME Qty: 30 6RF duloxetine 30 mg capsule,delayed release(DR/EC) 30 mg PO BEDTIME duloxetine 20 mg capsule,delayed release(DR/EC) 20 mg PO BEDTIME oxcarbazepine 150 mg tablet 150 mg PO ONCE Interventions: ED Discharge Assessment Last Done: 04/09/25 06:32 Discharge Date/Time: 04/09/25 06:32 Print Language: Amharic
[2025-04-09 01:14] LABS: Troponin-I High Sensitivity < 2.7 ng/L (<3.5-17.0)
[2025-04-09 01:57] VITALS: BP 123/71; PULSE 86; RESP 20; O2SAT 96
[2025-04-09 02:03] LABS: INTERNATIONAL NORM RATIO 1.0 (0.9-1.1); Prothrombin Time 12.3 SEC (11.2-13.5)
[2025-04-09 02:08] LABS: D Dimer High Sensitivity < 150 NG/ML
--- NOTE | 2025-04-09 02:08 | PC.NURSE ---
pt off unit for U/S. ambulating with steady gait
[2025-04-09 02:15] LABS: Appearance Urine Clear; Glucose Urine UA Negative (Negative); PH 6.0 (5.0-9.0); Specific Gravity - Urine 1.010 (1.005-1.025)
[2025-04-09 03:28] VITALS: BP 112/64; PULSE 84; RESP 17; O2SAT 94
[2025-04-09 03:28] LABS: Troponin-I High Sensitivity < 2.7 ng/L (<3.5-17.0)
[2025-04-09 06:00] VITALS: BP 115/58; PULSE 83; RESP 14; TEMP 36.5; O2SAT 96
[2025-04-09 06:32] VITALS: BP 115/58; PULSE 83; RESP 14; TEMP 36.5; O2SAT 96
== END 2025-04-09 06:32 | disposition home or self-care (01) ==
PROVIDERS: Emergency Provider Emergency Medicine; PCP Internal Medicine
DX: K80.50 Calculus of bile duct without cholangitis or cholecystitis without obstruction (principal); R07.9 Chest pain, unspecified; R10.11 Right upper quadrant pain; R94.31 Abnormal electrocardiogram [ECG] [EKG]; I10 Essential (primary) hypertension; J45.909 Unspecified asthma, uncomplicated; J44.9 Chronic obstructive pulmonary disease, unspecified; K21.9 Gastro-esophageal reflux disease without esophagitis; Z79.51 Long term (current) use of inhaled steroids; Z79.899 Other long term (current) drug therapy; Z79.82 Long term (current) use of aspirin
CPT/HCPCS: 36415; 71045; 76705; 80053; 80061; 81001; 83690; 83735; 84484; 85025; 85379; 85610; 93005; 99284; 99285

== ENCOUNTER → 2025-04-09 00:16 | Outpatient (BNV) | payer OTHER, SELFPAY | PROVIDERS: Emergency Provider Emergency Medicine; PCP Internal Medicine; Visit Provider Internal Medicine Cardiovascular Disease | DX: I25.2 Old myocardial infarction (principal) | CPT/HCPCS: 93010 ==

== ENCOUNTER → 2025-04-09 01:42 | Outpatient (BNV) | payer OTHER, SELFPAY | PROVIDERS: Emergency Provider Emergency Medicine; PCP Internal Medicine; Visit Provider Radiology Neuroradiology | DX: K80.20 Calculus of gallbladder without cholecystitis without obstruction (principal); R07.9 Chest pain, unspecified | CPT/HCPCS: 71045; 76705 ==

== ENCOUNTER → 2025-04-18 07:34 | Outpatient (REF) | payer OTHER, SELFPAY ==
--- NOTE | ~2025-04-18 | NM_ITS ---
EXERCISE MYOCARDIAL PERFUSION STUDY INDICATION: Syncope with abnormal troponins to evaluate for myocardial ischemia TECHNIQUE: The patient was brought in for an exercise perfusion study on 04/18/2025. Patient performed exercise as per Thang protocol and was injected 40 mCi of sestamibi once target heart rate was achieved. Images were obtained using the SPECT gamma camera interlaced with the gating device. Images were obtained in supine position. Resting perfusion study was performed on 04/19/2025. Patient was administered 40 mCi of sestamibi intravenously at rest. Images were then obtained in supine position. Images were processed with the software and compared side to side in short axis, horizontal long axis and vertical long axis views. Images obtained without without CT attenuation. Total DLP 112 mGy-cm. FINDINGS: Raw images were reviewed The stress perfusion study showed nonattenuated images show mildly reduced uptake and thinning of the distal lateral and inferolateral as well as inferoapical wall of the LV myocardium. Attenuated corrected images show mildly reduced uptake in the apex of the LV myocardium. The gated study shows normal LV systolic function with visually estimated LVEF of greater than 55%. LV cavity is normal in size. The gated study shows normal systolic wall thickening and contraction of segments. Resting study shows no change in perfusion pattern compared to stress perfusion study. Gating at rest reveals normal systolic wall motion with ejection fraction at 67%. The findings are consistent with no clear reversible defect suggestive of ischemia. Likely normal myocardial perfusion. NM/NM cardiolite stress test IMPRESSION: 1. Myocardial perfusion imaging study shows likely normal myocardial perfusion. 2. Gated LVEF is 67%. 3. Transient ischemic dilatation not present. EKG revealed negative for ischemia. Electronically signed by: Myke Zaman MD 04/19/2025 02:54 PM [facility]
--- NOTE | 2025-04-18 07:36 | CA_ITS ---
Acquisition Time: 2025-04-18 08:07:50 Total Exercise Time: 00:05:00 Test Indications: Syncope ELEVATED TROPONIN Medications: SEE H&P Protocol: RAFAEL Max HR: 155 BPM 93% of Pred: 166 BPM Max BP: 178/60 mmHG Max Work Load: 4.6 METS Exercise stress test with exercise 5 mins of Rafael Protocol held at Stage 1, achieving 93% MPHR, with reports of severe SOB, no chest pain, without any arrythmias, with normotensive response to exercise. Without any EKG changes meeting criteria for ischemia. In recovery, breathing slowly improved to baseline. Nuclear images pending. Test reviewed with Dr. Zaman. Referred By: Berenice Trujillo Electronically Signed By: Ridge Umana
--- OUTSIDE RECORDS SUMMARY | 2025-04-18 07:37 | XMS_ITS | Encounter Summary ---
Author Organization [facility] Address [address] [place] [address] Care Team Providers Care Pick Pulling Machine Operator Name Role Phone Braydon Sykes MD Primary Care Provider [phone] Encounter Details Date Type Department Care Team (Late st Contact Info) Description 06/09/2024 Lab Requisition [facility] [address] [place] [address] Braydon Sykes MD [address] [place] [id number] Encounter for other general examination Social History [...] AM EST) WBC 5.6 4.8 - 10.8 K/[facility] LAB HEMETOLOGY METHOD 06/09/2024 8:24 AM EST [facility] RBC 4.40 3.80 - 4.80 M/[facility] LAB HEMETOLOGY METHOD 06/09/2024 8:24 AM EST [facility] Hemoglobin 12.1 11.5 - 16.0 [...] Res ult [facility] [address] [place] [address], * Basic metabolic panel (06/09/2024 6:00 AM [...] MD LAB BLOOD ORDERABLES Final Res ult [facility] ([facility] [address] [place] [address], documented in this encounter Visit Diagnoses Diagnosis Encounter for other general examination documented in this encounter Care Teams Pick Pulling Machine Operator Relationship Specialty Start Date End Date Braydon Sykes MD [address] [place] [phone] PCP - General Internal Medicine 06/03/24 documented as of this encounter
--- OUTSIDE RECORDS SUMMARY | 2025-04-18 07:37 | XMS_ITS | Clinical Summary ---
Author Organization [facility] Address [address] [place] [id number] Phone Care Team Providers Care Radiology Director Name Role Phone Thee Tay MD Primary Care Provider [phone] Social History Tobacco Use Types Packs/Day Years [...] [place] [id number] [facility] [employer] [facility] [place] [facility] [place] [place] [facility] Care Teams Radiology Director Relationship Specialty Start Date End Date Thee Tay MD [address] [place] [id number] PCP - General Internal Medicine 01/13/17 Additional Source Comments The information contained in this document represents components of the legal health record. It is not the complete legal health record.[facility]
--- OUTSIDE RECORDS SUMMARY | 2025-04-18 07:37 | XMS_ITS | Encounter Summary ---
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 Patients should present to appointment with any relavant office notes, imaging, and pathology results. Encounter Details Date Type Department Care Team (Latest Contact Info) Description 01/14/2017 Transcribe Orders [facility] Referral Management [address] [place] [id number] Unknown, Unknown, Temporomandibular joint disorder (TMJ) (Primary [...] Associated Diagnoses Order Schedule [place] [facility] [place]ill[place] Outpatient Referral Routine Temporomandibular joint disorder (TMJ) Ordered: 01/14/2017 documented as of this encounter Visit Diagnoses Diagnosis Temporomandibular joint disorder (TMJ)- Primary documented in this encounter Care Teams Building Supplies Salesperson Retail Relationship Specialty Start Date End Date Thee Tay MD [facility] [place] [address] PCP - General Internal Medicine 01/13/17 documented as of this encounter Additional Source Comments The information contained in this document represents components of the legal health record. It is not the complete legal health record.[facility]
--- OUTSIDE RECORDS SUMMARY | 2025-04-18 07:37 | XMS_ITS | Encounter Summary ---
Author Organization [facility] Address [address] [place] [address] Care Team Providers Care Grants And Contracts Assistant Name Role Phone Braydon Sykes MD Primary Care Provider [phone] Encounter Details Date Type Department Care Team (Late st Contact Info) Description 06/03/2024 Lab Requisition [facility] - Main Lab [address] [facility] [place] [address] Braydon Sykes MD [address] [place] [id number] Encounter for other general examination Social History [...] AM EST) WBC 5.6 4.8 - 10.8 K/[facility] LAB HEMETOLOGY METHOD 06/03/2024 11:27 AM [facility] RBC 4.80 3.80 - 4.80 M/[facility] LAB HEMETOLOGY METHOD 06/03/2024 11:27 AM [facility] Hemoglobin 12.8 11.5 - 16.0 g/dL LAB HEMETOLOGY METHOD 06/03/2024 11:27 AM [facility] Hematocrit 39.8 35.0 - 47.0 % LAB HEMETOLOGY METHOD 06/03/2024 11:27 AM [facility] MCV 82.2 79.0 - 98.0 FL LAB HEMETOLOGY METHOD 06/03/2024 11:27 AM [facility] MCH 26.4(L) 27.0 - 32.0 pcg LAB HEMETOLOGY METHOD 06/03/2024 11:27 AM [facility] MCHC 32.2 32.0 - 37.0 g/dL LAB HEMETOLOGY METHOD 06/03/2024 11:27 AM [facility] RDW 14.2 11.0 - 15.0 % LAB HEMETOLOGY METHOD 06/03/2024 11:27 AM [facility] Platelets 199 130 - 400 K/[facility] LAB HEMETOLOGY METHOD 06/03/2024 11:27 AM [facility] MPV 10.8 7.0 - 11.0 FL LAB HEMETOLOGY METHOD 06/03/2024 11:27 AM [facility] NRBC 0.0 <1.0 % LAB HEMETOLOGY METHOD 06/03/2024 11:27 AM [facility] NRBC Absolute 0.00 <0.10 K/[facility] LAB HEMETOLOGY METHOD 06/03/2024 11:27 AM [facility] Neutrophils Relative 64.3 % LAB HEMETOLOGY METHOD 06/03/2024 11:27 AM [facility] Lymphocytes Relative 19.3 % LAB HEMETOLOGY METHOD 06/03/2024 11:27 AM [facility] Monocytes Relative 13.5 % LAB HEMETOLOGY METHOD 06/03/2024 11:27 AM [facility] Eosinophils Relative 2.0 % LAB HEMETOLOGY METHOD 06/03/2024 11:27 AM [facility] Basophils Relative 0.5 % LAB HEMETOLOGY METHOD 06/03/2024 11:27 AM [facility] Immature Granulocytes Relative 0.4 % LAB HEMETOLOGY METHOD 06/03/2024 11:27 AM [facility] Neutrophils Absolute 3.63 1.50 - 7.00 K/mcL LAB HEMETOLOGY METHOD 06/03/2024 11:27 AM [facility] Lymphocytes Absolute 1.09 1.00 - 5.00 K/mcL LAB HEMETOLOGY METHOD 06/03/2024 11:27 AM [facility] Monocytes Absolute 0.76 0.20 - 1.00 K/mcL LAB HEMETOLOGY METHOD 06/03/2024 11:27 AM [facility] Eosinophils Absolute 0.11 0.00 - 0.50 K/mcL LAB HEMETOLOGY METHOD 06/03/2024 11:27 AM [facility] Basophils Absolute 0.03 0.00 - 0.20 K/mcL LAB HEMETOLOGY METHOD 06/03/2024 11:27 AM [facility] Immature Granulocytes Absolute 0.02 0.00 - 0.03 K/mcL LAB HEMETOLOGY METHOD 06/03/2024 11:27 AM [facility] Blood Venous blood specimen / Unknown Venipuncture / Unknown 06/03/2024 6:18 AM EST 06/03/2024 10:27 AM EST Braydon Sykes MD LAB BLOOD ORDERABLES Final Res ult Performing Organization Address [facility]/ZIP Co de Phone Number [facility] [address] [place] [address], [place] [phone] * Magnesium (06/03/2024 6:18 AM EST) Pathologist [facility] Magnesium 2.3 1.9 - 2.6 mg/dL LAB CHEMISTRY METHOD 06/03/2024 11:57 AM EST [facility] Blood Venous blood specimen / Unknown Venipuncture / Unknown 06/03/2024 6:18 AM EST 06/03/2024 10:27 AM EST Braydon Sykes MD LAB BLOOD ORDERABLES Final Res ult Performing Organization Address [facility]/ZIP Co de Phone Number [facility] [address] [place] [address], [place] [phone] * (ABNORMAL) Comprehensive metabolic panel (06/03/2024 6:18 AM EST) [facility] Sodium 136 133 - 145 mmol/L LAB CHEMISTRY METHOD 06/03/2024 11:57 AM [facility] Potassium 4.1 3.5 - 5.5 mmol/L LAB CHEMISTRY METHOD 06/03/2024 11:57 AM [facility] Chloride 104 96 - 110 mmol/L LAB CHEMISTRY METHOD 06/03/2024 11:57 AM [facility] CO2 24 21 - 32 mmol/L LAB CHEMISTRY METHOD 06/03/2024 11:57 AM [facility] Anion Gap 8 3 - 11 LAB CHEMISTRY METHOD 06/03/2024 11:57 AM [facility] Glucose 83 70 - 100 mg/dL LAB CHEMISTRY METHOD 06/03/2024 11:57 AM [facility] BUN 14 5 - 25 mg/dL LAB CHEMISTRY METHOD 06/03/2024 11:57 AM [facility] Creatinine 0.58 0.50 - 1.10 mg/dL LAB CHEMISTRY METHOD 06/03/2024 11:57 AM [facility] eGFR 108 >=60 mL/min/1. 73m2 LAB CHEMISTRY METHOD 06/03/2024 11:57 AM [facility] Comment:Calculation based on the Chronic Kidney Disease Epidemiology Collaboration (CKD-EPI) equation refit without adjustment for race. BUN/Creatinine Ratio 24.1 LAB CHEMISTRY METHOD 06/03/2024 11:57 AM [facility] Calcium 9.1 8.5 - 10.5 mg/dL LAB CHEMISTRY METHOD 06/03/2024 11:57 AM [facility] AST (SGOT) 36 10 - 42 unit/L LAB CHEMISTRY METHOD 06/03/2024 11:57 AM [facility] ALT (SGPT) 43 10 - 60 unit/L LAB CHEMISTRY METHOD 06/03/2024 11:57 AM [facility] Alkaline Phosphatase 148(H) 42 - 121 unit/L LAB CHEMISTRY METHOD 06/03/2024 11:57 AM [facility] Total Protein 6.2 6.0 - 8.0 g/dL LAB CHEMISTRY METHOD 06/03/2024 11:57 AM [facility] Albumin 3.5 3.2 - 5.0 g/dL LAB CHEMISTRY METHOD 06/03/2024 11:57 AM [facility] Total Bilirubin 0.2 0.0 - 1.4 mg/dL LAB CHEMISTRY METHOD 06/03/2024 11:57 AM [facility] Blood Venous blood specimen / Unknown Venipuncture / Unknown 06/03/2024 6:18 AM EST 06/03/2024 10:27 AM EST us Braydon Sykes MD LAB BLOOD ORDERABLES Final Res ult [facility] [address] [place] [address], documented in this encounter Visit Diagnoses Diagnosis Encounter for other general examination documented in this encounter Care Teams Grants And Contracts Assistant Relationship Specialty Start Date End Date Braydon Sykes MD [address] [place] [id number] PCP - General Internal Medicine 06/03/24 documented as of this encounter
--- OUTSIDE RECORDS SUMMARY | 2025-04-18 07:37 | XMS_ITS | Clinical Summary ---
Author Organization [address] [facility] Address [address] [place] [address] Phone Care Team Providers Care Product Manager E Commerce Name Role Phone Braydon Sykes MD Primary Care Provider [phone] Social History Tobacco Use Types Packs/Day Years [...] topic Insurance MEDICA[place] - [place] Care Teams Product Manager E Commerce Relationship Specialty Start Date End Date Braydon Sykes MD [address] [place] [id number] PCP - General Internal Medicine 06/03/24
== END ==
LOC: HO.CARD 07:34
PROVIDERS: Visit Provider Nurse Practitioner Family
DX: R55 Syncope and collapse (principal); R77.8 Other specified abnormalities of plasma proteins; R94.31 Abnormal electrocardiogram [ECG] [EKG]
CPT/HCPCS: 78452; 93017; 93242; A9500; J0280; J2785

== ENCOUNTER → 2025-04-18 07:36 | Outpatient (BNV) | payer OTHER, SELFPAY | DX: R55 Syncope and collapse (principal) | CPT/HCPCS: 78452; 93016; 93018 ==